=== PATIENT | male | born 1970 | race Caucasian/White ===

== ENCOUNTER 2016-09-21 11:15 | Outpatient (RCR) | payer MEDICARE, MEDICAID ==
[~2016-09-21 11:15] MED LIST: ALBU8.5H4 IH; AMLO5TAB2 PO; ATOR80TA76 PO; BACL20TA PO; CIPR5DRO LEFT EAR; CLOP75TA28 PO; EZET10TA5 PO; ISM60TCR PO; ISOS30TA3 PO; MECL-106 PO; METO-272 PO; NITR0.4T SL; OMEP40CA36 PO; PANT40TA3; PARO30TA3 PO; PRAS10TA6 PO; RANO10003 PO; RANO500T3 PO; RIVA10TA PO; RIVA20TA PO; WARF-48 PO; WARF10TA PO; WARF10TA44 PO
== END 2016-11-13 | disposition home or self-care (01) ==
LOC: CR 11:15
PROVIDERS: ATTEND Internal Medicine Cardiovascular Disease
DX: Z48.812 Encounter for surgical aftercare following surgery on the circulatory system (principal); Z95.5 Presence of coronary angioplasty implant and graft
CPT/HCPCS: 93798

== ENCOUNTER 2017-02-01 18:21 | Emergency (ER) | payer MEDICARE, MEDICAID ==
[~2017-02-01] VITALS: Ht 185.4 cm; Wt 129.3 kg
--- OUTSIDE RECORDS SUMMARY | 2017-02-01 18:28 | XMS REPORT ---
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 Active Problem History of stroke Z86.73 Active Problem Vertigo R42 Active Problem GERD (gastroesophageal reflux disease) K21.9 Active Problem Prediabetes R73.03 Active Problem Anticoagulant long-term use Z79.01 Active Problem Depression F32.9 Active Problem Paroxysmal atrial fibrillation I48.0 Active Problem 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
--- OUTSIDE RECORDS SUMMARY | 2017-02-01 18:28 | XMS REPORT ---
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
--- OUTSIDE RECORDS SUMMARY | 2017-02-01 18:28 | XMS REPORT ---
Author Author JUNIOR XIE [employer] Address Unknown Phone Unavailable Care Team Providers Care Bindery Leadperson Name Role Phone JUNIOR XIE Unavailable Allergies No Known Allergies Problems Problem Type Condition Code Onset Dates Condition Status Problem Hyperlipidemia, unspecified E78.5 Active Problem Chronic obstructive pulmonary disease, unspecified J44.9 Active Problem Essential hypertension I10 Active Problem Elevated glucose R73.09 Active Problem Anemia D64.9 Active Problem Depression F32.9 Active Problem 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 Active Problem Anticoagulant long-term use Z79.01 Active Problem Sciatica, unspecified side M54.30 Active Problem 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
--- OUTSIDE RECORDS SUMMARY | 2017-02-01 18:28 | XMS REPORT ---
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
--- OUTSIDE RECORDS SUMMARY | 2017-02-01 18:28 | XMS REPORT ---
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
--- OUTSIDE RECORDS SUMMARY | 2017-02-01 18:29 | XMS REPORT ---
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 Active Problem Anticoagulant long-term use Z79.01 Active Problem Sciatica, unspecified side M54.30 Active Problem 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
--- OUTSIDE RECORDS SUMMARY | 2017-02-01 18:29 | XMS REPORT | Continuity of Care Document ---
Author Author [facility] Organization [facility] Address Unknown Phone Unavailable Allergies Active Description Code Type Severity Reaction Onset Reported/Identified Relationship to Patient Clinical Status Yes prednisone [id number] Drug Allergy Moderate RASH 04/23/2015 Yes bee venom (honey bee) [id number] Drug Allergy Unknown N/A 04/23/2015 Yes hydrocodone [id number] Drug Allergy Unknown N/A 04/23/2015 Yes venom-honey bee [id number] Drug Allergy Unknown N/A 04/23/2015 Medications Problems Date Dx Coded Attending Type Code Diagnosis Diagnosed By 04/27/2015 JAMEEL PIMENTEL MD Ot 272.4 HYPERLIPIDEMIA NEC/NOS 04/27/2015 JAMEEL PIMENTEL MD Ot 278.01 MORBID OBESITY 04/27/2015 JAMEEL PIMENTEL MD Ot 327.23 OBSTRUCTIVE SLEEP APNEA (ADULT) (PEDIATR 04/27/2015 JAMEEL PIMENTEL MD Ot 401.9 HYPERTENSION NOS 04/27/2015 JAMEEL PIMENTEL MD Ot 411.1 INTERMED CORONARY SYND 04/27/2015 JAMEEL PIMENTEL MD Ot 414.01 CORONARY ATHEROSCLEROSIS OF [place] CORON 04/27/2015 JAMEEL PIMENTEL MD Ot 414.2 CHRONIC TOTAL OCCLUSION OF CORONARY [place] 04/27/2015 JAMEEL PIMENTEL MD Ot 427.31 ATRIAL FIBRILLATION 04/27/2015 JAMEEL PIMENTEL MD Ot 427.32 ATRIAL FLUTTER 04/27/2015 JAMEEL PIMENTEL MD Ot 996.72 OTH COMPLICATIONS DUE TO OTH CARD DEVICE 04/27/2015 JAMEEL PIMENTEL MD Ot V12.54 PERSONAL HX OF TIA, CEREBRAL INFARCTION 04/27/2015 JAMEEL PIMENTEL MD Ot V17.49 FAMILY HISTORY OF OTHER CARDIOVASCULAR D 04/27/2015 JAMEEL PIMENTEL MD Ot V45.81 AORTOCORONARY BYPASS 04/27/2015 JAMEEL PIMENTEL MD Ot V45.82 PERCUTANEOUS TRANSLUM CORON ANGIOPLASTY 04/27/2015 JAMEEL PIMENTEL MD Ot V58.61 ANTICOAGULANTS,LT,CURRENT USE 04/27/2015 JAMEEL PIMENTEL MD Ot V85.39 BODY MASS INDEX 39.0-39.9, ADULT 06/15/2015 JAMEEL PIMENTEL MD Ot I20.9 06/15/2015 JAMEEL PIMENTEL MD Ot Z95.5 06/16/2015 JAMEEL PIMENTEL MD Ot I20.9 06/16/2015 JAMEEL PIMENTEL MD Ot Z95.5 07/08/2015 JAMEEL PIMENTEL MD Ot I20.9 07/08/2015 JAMEEL PIMENTEL MD Ot Z95.5 07/08/2015 GARRETT NOVA, DEONTE Burkett Ot F17.211 NICOTINE DEPENDENCE, CIGARETTES, IN [place] 07/08/2015 DEONTE TUCKER MD Ot J44.9 CHRONIC OBSTRUCTIVE PULMONARY DISEASE, U 07/08/2015 DEONTE TUCKER MD Ot R05 COUGH 07/08/2015 DEONTE TUCKER MD Ot R63.5 ABNORMAL WEIGHT GAIN 07/25/2015 JOSE GUADALUPE KENNEDY Ot G47.33 OBSTRUCTIVE SLEEP APNEA (ADULT ) (PEDIATR 08/02/2015 JAMEEL PIMENTEL MD Ot I20.9 08/02/2015 JAMEEL PIMENTEL MD Ot Z95.5 08/04/2015 JAMEEL PIMENTEL MD Ot I20.9 08/04/2015 JAMEEL PIMENTEL MD Ot Z95.5 08/31/2015 ERIC WALL APRN Ot R79.1 ABNORMAL COAGULATION PROFILE 08/31/2015 ERIC WALL APRN Ot S00.412A ABRASION OF LEFT EAR, INITIAL ENCOUNTER 08/31/2015 ERIC WALL APRN Ot X58.XXXA EXPOSURE TO OTHER SPECIFIED FACTORS, INI 08/31/2015 ERIC WALL APRN Ot Y92.[address] [facility] [address] IN [facility] NON-[facility] ( PRIVATE 08/31/2015 ERIC WALL APRN Ot Y99.8 OTHER EXTERNAL CAUSE STATUS 08/31/2015 ERIC WALL APRN Ot Z79.01 PRACTICE ARCHITECT (CURRENT) USE OF ANTICOAGULANT 08/31/2015 ERIC WALL APRN Ot Z86.73 PRSNL HX OF TIA (TIA), AND CEREB INFRC W 09/10/2015 MARY JON COMPUTER APPLICATIONS DEVELOPER Ot G47.33 OBSTRUCTIVE SLEEP APNEA (ADULT) ( PEDIATR 09/11/2015 JAMEEL PIMENTEL MD Ot I20.9 ANGINA PECTORIS, UNSPECIFIED 09/11/2015 JAMEEL PIMENTEL MD Ot Z95.5 PRESENCE OF CORONARY ANGIOPLASTY IMPLANT 09/14/2015 JAMEEL PIMENTEL MD Ot I20.9 09/14/2015 JAMEEL PIMENTEL MD Ot Z95.5 09/14/2015 JAMEEL PIMENTEL MD Ot I20.9 09/14/2015 JAMEEL PIMENTEL MD Ot Z95.5 09/15/2015 JAMEEL PIMENTEL MD Ot I20.9 09/15/2015 JAMEEL PIMENTEL MD Ot Z95.5 10/25/2015 JAMEEL PIMENTEL MD Ot I20.9 10/25/2015 JAMEEL PIMENTEL MD Ot Z95.5 12/13/2015 JAMEEL PIMENTEL MD Ot I20.9 ANGINA PECTORIS, UNSPECIFIED 12/13/2015 JAMEEL PIMENTEL MD Ot Z95.5 PRESENCE OF CORONARY ANGIOPLASTY IMPLANT 12/15/2015 JAMEEL PIMENTEL MD Ot I20.9 ANGINA PECTORIS, UNSPECIFIED 12/15/2015 JAMEEL PIMENTEL MD Ot Z95.5 PRESENCE OF CORONARY ANGIOPLASTY IMPLANT 02/29/2016 ANA LUISA NOVA FACC, JT FACP CCDS Ot E66.9 OBESITY, UNSPECIFIED 02/29/2016 ANA LUISA NOVA FACC, JT FACP CCDS Ot E78.5 HYPERLIPIDEMIA, UNSPECIFIED 02/29/2016 ANA LUISA NOVA FACC, JT FACP CCDS Ot G47.30 SLEEP APNEA, UNSPECIFIED 02/29/2016 ANA LUISA NOVA FACC, JT FACP CCDS Ot I10 ESSENTIAL (PRIMARY) HYPERTENSION 02/29/2016 JT OROSCO MD, FACC FACP CCDS Ot I25.118 ATHSCL HEART DISEASE OF [place] COR ART W 02/29/2016 JT OROSCO MD, FACC FACP CCDS Ot I25.82 CHRONIC TOTAL OCCLUSION OF CORONARY [place] 02/29/2016 JT OROSCO MD, FACCP CCDS Ot I48.91 UNSPECIFIED ATRIAL FIBRILLATION 02/29/2016 JT OROSCO MD, FACC FACP CCDS Ot Z68.38 BODY MASS INDEX (BMI) 38.0-38.9 , ADULT 02/29/2016 JT OROSCO MD, FACC FACP CCDS Ot Z79.01 MCC (CURRENT) USE OF ANTICOAGULANT 02/29/2016 ANA LUISA NOVA FACC, ALI FACP CCDS Ot Z79.899 OTHER PRACTICE ARCHITECT (CURRENT) DRUG THERAPY 02/29/2016 ANA LUISA NOVA FACC, JT FACP CCDS Ot Z82.49 FAMILY HX OF I[place]HE[place] HEART DIS AND OTH DI 02/29/2016 ANA LUISA NOVA FACC, ALI FACP CCDS Ot Z86.73 PRSNL HX OF TIA (TIA), AND CEREB INFRC W 02/29/2016 ANA LUISA NOVA FACC, JT FACP CCDS Ot Z95.1 PRESENCE OF AORTOCORONARY BYPASS GRAFT 03/28/2016 ANA LUISA NOVA FACC, JT FACP CCDS Ot E66.9 OBESITY, UNSPECIFIED 03/28/2016 ANA LUISA NOVA FACC, ALI FACP CCDS Ot E78.5 HYPERLIPIDEMIA, UNSPECIFIED 03/28/2016 ANA LUISA NOVA FACC, ALI FACP CCDS Ot G47.30 SLEEP APNEA, UNSPECIFIED 03/28/2016 ANA LUISA NOVA FACC, ALI FACP CCDS Ot I10 ESSENTIAL (PRIMARY) HYPERTENSION 03/28/2016 ANA LUISA NOVA FACC, ALI FACP CCDS Ot I25.118 ATHSCL HEART DISEASE OF [place] COR ART W 03/28/2016 ANA LUISA NOVA FACC, ALI FACP CCDS Ot I25.82 CHRONIC TOTAL OCCLUSION OF CORONARY [place] 03/28/2016 ANA LUISA NOVA FACC, JT FACP CCDS Ot I48.91 UNSPECIFIED ATRIAL FIBRILLATION 03/28/2016 ANA LUISA NOVA FACC, ALI FACP CCDS Ot Z68.38 BODY MASS INDEX (BMI) 38.0-38.9 , ADULT 03/28/2016 ANA LUISA NOVA FACC, JT FACP CCDS Ot Z79.01 PRACTICE ARCHITECT (CURRENT) USE OF ANTICOAGULANT 03/28/2016 ANA LUISA NOVA FACC, ALI FACP CCDS Ot Z79.899 OTHER PRACTICE ARCHITECT (CURRENT) DRUG THERAPY 03/28/2016 ANA LUISA NOVA FACC, ALI FACP CCDS Ot Z82.49 FAMILY HX OF ISCHEM HEART DIS AND OTH DI 03/28/2016 ANA LUISAJT EASTON MD, FACC FACP CCDS Ot Z86.73 PRSNL HX OF TIA (TIA), AND CEREB INFRC W 03/28/2016 JT OROSCO MD, FACC FACP CCDS Ot Z95.1 PRESENCE OF AORTOCORONARY BYPASS GRAFT 04/13/2016 JT OROSCO MD, FACC FACP CCDS Ot E66.9 OBESITY, UNSPECIFIED 04/13/2016 JT OROSCO MD, FACC FACP CCDS Ot E78.5 HYPERLIPIDEMIA, UNSPECIFIED 04/13/2016 JT OROSCO MD, FACC FACP CCDS Ot G47.30 SLEEP APNEA, UNSPECIFIED 04/13/2016 JT OROSCO MD, FACC FACP CCDS Ot I10 ESSENTIAL (PRIMARY) HYPERTENSION 04/13/2016 JT OROSCO MD, FACC FACP CCDS Ot I25.118 ATHSCL HEART DISEASE OF [place] COR ART W 04/13/2016 JT OROSCO MD, FACC FACP CCDS Ot I25.82 CHRONIC TOTAL OCCLUSION OF CORONARY [place] 04/13/2016 JT OROSCO MD, FACC FACP CCDS Ot I48.91 UNSPECIFIED ATRIAL FIBRILLATION 04/13/2016 JT OROSCO MD, FACC FACP CCDS Ot Z68.38 BODY MASS INDEX (BMI) 38.0-38.9 , ADULT 04/13/2016 JT OROSCO MD, FACC FACP CCDS Ot Z79.01 PRACTICE ARCHITECT (CURRENT) USE OF ANTICOAGULANT 04/13/2016 ANA LUISA NOVA FACC ALI FACP CCDS Ot Z79.899 OTHER PRACTICE ARCHITECT (CURRENT) DRUG THERAPY 04/13/2016 JT OROSCO MD, FACC FACP CCDS Ot Z82.49 FAMILY HX OF ISCHEM HEART DIS AND OTH DI 04/13/2016 JT OROSCO MD, FACC FACP CCDS Ot Z86.73 PRSNL HX OF TIA (TIA), AND CEREB INFRC W 04/13/2016 JT OROSCO MD, FACC FACP CCDS Ot Z95.1 PRESENCE OF AORTOCORONARY BYPASS GRAFT 04/16/2016 JT OROSCO MD, FACC FACP CCDS Ot E66.9 OBESITY, UNSPECIFIED 04/16/2016 JT OROSCO MD, FACC FACP CCDS Ot E78.5 HYPERLIPIDEMIA, UNSPECIFIED 04/16/2016 JT OROSCO MD, FACC FACP CCDS Ot G47.30 SLEEP APNEA, UNSPECIFIED 04/16/2016 ANA LUISA NOVA FACC, JT FACP CCDS Ot I10 ESSENTIAL (PRIMARY) HYPERTENSION 04/16/2016 ANA LUISA NOVA FACC, JT FACP CCDS Ot I25.118 ATHSCL HEART DISEASE OF [place] COR ART W 04/16/2016 ANA LUISA NOVA FACC, JT FACP CCDS Ot I25.82 CHRONIC TOTAL OCCLUSION OF CORONARY [place] 04/16/2016 ANA LUISA NOVA FACC, JT FACP CCDS Ot I48.91 UNSPECIFIED ATRIAL FIBRILLATION 04/16/2016 ANA LUISA NOVA FACC, ALI FACP CCDS Ot Z68.38 BODY MASS INDEX (BMI) 38.0-38.9 , ADULT 04/16/2016 JT OROSCO MD, FACC FACP CCDS Ot Z79.01 MCC (CURRENT) USE OF ANTICOAGULANT 04/16/2016 JT OROSCO MD, FACC FACP CCDS Ot Z79.899 OTHER PRACTICE ARCHITECT (CURRENT) DRUG THERAPY 04/16/2016 JT OROSCO MD, FACC FACP CCDS Ot Z82.49 FAMILY HX OF ISCHEM HEART DIS AND OTH DI 04/16/2016 ANA LUISA NOVA FACC, JT FACP CCDS Ot Z86.73 PRSNL HX OF TIA (TIA), AND CEREB INFRC W 04/16/2016 ANA LUISA NOVA FACC, ALI FACP CCDS Ot Z95.1 PRESENCE OF AORTOCORONARY BYPASS GRAFT 06/18/2016 ERIC WALL APRN Ot I25.10 ATHSCL HEART DISEASE OF [place] CORONARY 06/18/2016 ERIC WALL APRN Ot I48.2 CHRONIC ATRIAL FIBRILLATION 06/18/2016 ERIC WALL APRN Ot J44.9 CHRONIC OBSTRUCTIVE PULMONARY DISEASE, U 06/18/2016 ERIC WALL APRN Ot R00.2 PALPITATIONS 06/18/2016 ERIC WALL APRN Ot R07.89 OTHER CHEST PAIN 06/18/2016 ERIC WALL APRN Ot R51 HEADACHE 06/18/2016 ERIC WALL APRN Ot Z79.01 PRACTICE ARCHITECT (CURRENT) USE OF ANTICOAGULANT 06/18/2016 ERIC WALL APRN Ot Z79.02 MCC (CURRENT) USE OF ANTITHROMBOTI 06/18/2016 ERIC WALL APRN Ot Z79.899 OTHER MCC (CURRENT) DRUG THERAPY 06/18/2016 ERIC WALL DEVELOPER ANALYST Ot Z87.891 PERSONAL HISTORY OF NICOTINE DEPENDENCE 06/18/2016 ERIC WALL APRN Ot Z95.1 PRESENCE OF AORTOCORONARY BYPASS GRAFT 06/18/2016 ERIC WALL APRN Ot Z95.5 PRESENCE OF CORONARY ANGIOPLASTY IMPLANT 06/18/2016 JAMEEL PIMENTEL MD Ot I20.9 ANGINA PECTORIS, UNSPECIFIED 06/18/2016 JAMEEL PIMENTEL MD Ot Z95.5 PRESENCE OF CORONARY ANGIOPLASTY IMPLANT 08/15/2016 JAMEEL PIMENTEL MD Ot I20.9 ANGINA PECTORIS, UNSPECIFIED 08/15/2016 JAMEEL PIMENTEL MD Ot Z95.5 PRESENCE OF CORONARY ANGIOPLASTY IMPLANT 08/16/2016 JAMEEL PIMENTEL MD Ot Z48.812 ENCNTR FOR SURGICAL AFTCR FOLLOWING SURG 08/16/2016 JAMEEL PIMENTEL MD Ot Z95.5 PRESENCE OF CORONARY ANGIOPLASTY IMPLANT 09/27/2016 JAMEEL PIMENTEL MD Ot Z48.812 ENCNTR FOR SURGICAL AFTCR FOLLOWING SURG 09/27/2016 JAMEEL PIMENTEL MD Ot Z95.5 PRESENCE OF CORONARY ANGIOPLASTY IMPLANT 11/13/2016 JAMEEL PIMENTEL MD Ot Z48.812 ENCNTR FOR SURGICAL AFTCR FOLLOWING SURG 11/13/2016 JAMEEL PIMENTEL MD Ot Z95.5 PRESENCE OF CORONARY ANGIOPLASTY IMPLANT Procedures Code Description Performed By Performed On 00.66 PERCUTANEOUS TRANSLUMINAL CORONARY ANGIO 04/24/2015 37.22 LEFT HEART CARDIAC CATH 04/24/2015 88.42 CONTRAST AORTOGRAM 04/24/2015 88.49 CONTRAST ARTERIOGRAM NEC 04/24/2015 88.53 LT HEART ANGIOCARDIOGRAM 04/24/2015 88.56 CORONAR ARTERIOGR-2 CATH 04/24/2015 00.66 PERCUTANEOUS TRANSLUMINAL CORONARY ANGIO 04/26/2015 88.56 CORONAR ARTERIOGR-2 CATH 04/26/2015 Results Test Result Range Complete blood count (CBC) with automated white blood cell (WBC) differential - 06/18/16 15:00 Blood leukocytes automated count (number/volume) 12.0 10*3/ uL 4.3-11.0 Blood erythrocytes automated count (number/volume) 4.30 10*6 /uL 4.35-5.85 Venous blood hemoglobin measurement (mass/volume) 12.6 g/dL 13.3-17.7 Blood hematocrit (volume fraction) 36 % 40-54 Automated erythrocyte mean corpuscular volume 84 [foz_us] 80-99 Automated erythrocyte mean corpuscular hemoglobin (mass per erythrocyte) 29 pg 25-34 Automated erythrocyte mean corpuscular hemoglobin concentration measurement ( mass/volume) 35 g/dL 32-36 Automated erythrocyte distribution width ratio 13.0 % 10.0-14.5 Automated blood platelet count (count/volume) 248 10*3/uL 130-400 Automated blood platelet mean volume measurement 9.7 [foz_us ] 7.4-10.4 Automated blood neutrophils/100 leukocytes 58 % 42-75 Automated blood lymphocytes/100 leukocytes 30 % 12-44 Blood monocytes/100 leukocytes 6 % 0-12 Automated blood eosinophils/100 leukocytes 5 % 0-10 Automated blood basophils/100 leukocytes 0 % 0-10 Blood neutrophils automated count (number/volume) 7.0 10*3 1.8-7.8 Blood lymphocytes automated count (number/volume) 3.7 10*3 1.0-4.0 Blood monocytes automated count (number/volume) 0.8 10*3 0.0-1.0 Automated eosinophil count 0.6 10*3/uL 0.0-0.3 Automated blood basophil count (count/volume) 0.0 10*3/uL 0.0-0.1 PT panel in platelet poor plasma by coagulation assay - 06/18/16 15:00 Prothrombin time (PT) in platelet poor plasma by coagulation assay 19.0 s 12.2-14.7 INR in platelet poor plasma or blood by coagulation assay 1.6 0.8-1.4 Activated partial thromboplastin time (aPTT) in platelet poor plasma bycoagulation assay - 06/18/16 15:00 Activated partial thromboplastin time (aPTT) in platelet poor plasma bycoagulation assay 35 s 24-35 Comprehensive metabolic panel - 06/18/16 15:00 Serum or plasma sodium measurement (moles/volume) 138 mmol/ L 135-145 Serum or plasma potassium measurement (moles/volume) 3.4 mmol/L 3.6-5.0 Serum or plasma chloride measurement (moles/volume) 104 mmol /L 98-107 Carbon dioxide 23 mmol/L 21-32 Serum or plasma anion gap determination (moles/volume) 11 mmol/L 5-14 Serum or plasma urea nitrogen measurement (mass/volume) 8 mg /dL 7-18 Serum or plasma creatinine measurement (mass/volume) 0.80 mg /dL 0.60-1.30 Serum or plasma urea nitrogen/creatinine mass ratio 10 NRG Serum or plasma creatinine measurement with calculation of estimated glomerular filtration rate > NRG Serum or plasma glucose measurement (mass/volume) 156 mg/dL 70-105 Serum or plasma calcium measurement (mass/volume) 9.1 mg/dL 8.5-10.1 Serum or plasma total bilirubin measurement (mass/volume) 0.4 mg/dL 0.1-1.0 Serum or plasma alkaline phosphatase measurement (enzymatic activity/volume) 73 U/L 40-136 Serum or plasma aspartate aminotransferase measurement (enzymatic activity/ volume) 11 U/L 5-34 Serum or plasma alanine aminotransferase measurement (enzymatic activity/volume ) 13 U/L 0-55 Serum or plasma protein measurement (mass/volume) 6.9 g/dL 6.4-8.2 Serum or plasma albumin measurement (mass/volume) 4.0 g/dL 3.2-4.5 Magnesium - 06/18/16 15:00 Magnesium 2.1 mg/dL 1.8-2.4 Serum or plasma troponin i.cardiac measurement (mass/volume) - 06/18/16 15:00 Serum or plasma troponin i.cardiac measurement (mass/volume) < ng/mL <0.30 Myoglobin, serum - 06/18/16 15:00 Myoglobin, serum 22.6 ng/mL 10.0-92.0 Encounters ACCT No. Visit Date/Time Discharge Status Pt. Type Provider Facility Loc./Unit Complaint [id number] 09/21/2016 11:15:00 2016 00:01:00 DIS Outpatient JAMEEL PIMENTEL MD [facility] CR STENT [id number] 06/18/2016 14:42:00 2015 16:16:00 DIS Emergency ERIC WALL APRN [facility] ER PALPITATIONS NAUSEA [id number] 02/25/2016 23:11:00 2015 14:40:00 DIS Outpatient ANA LUISA NOVA FACC, JT VINESP CCDS [facility] CATH CHEST PAIN [id number] 09/26/2015 11:59:00 2015 00:01:00 DIS Outpatient JAMEEL PIMENTEL MD [facility] CR PTCA [id number];STABLE ANGINA [id number] 09/09/2015 19:56:00 2015 06:40:00 DIS Outpatient MARY JON COMPUTER APPLICATIONS DEVELOPER [facility] SLEEP NARGIS [id number] 08/31/2015 15:57:00 2015 17:10:00 DIS Emergency ERIC WALL DEVELOPER ANALYST [facility] ER L EAR BLEEDING [id number] 07/24/2015 21:15:00 2014 06:25:00 DIS Outpatient JOSE GUADALUPE KENNEDY [facility] SLEEP ARRHYTHMIAS, HX STROKE, OBSTRUCTIVE SLEEP APNEA [id number] 07/08/2015 10:07:00 2014 11:55:00 DIS Emergency DEONTE TUCKER MD [facility] ER COUGH/GAINING WEIGHT [id number] 04/25/2015 14:12:00 2014 11:55:00 DIS Inpatient JAMEEL PIMENTEL MD [facility] CSD CHEST PAIN,CAD,CHRONIC LEUKOCYTOSIS [id number] 11/14/2016 11:00:00 PEN Preadmit JAMEEL PIMENTEL MD [facility] CR STENT [id number] 12/14/2015 10:00:00 PEN Preadmit JAMEEL PIMENTEL MD [facility] CR PTCA [id number];STABLE ANGINA [id number] 09/09/2015 12:03:00 ACT Outpatient JAMEEL PIMENTEL MD [facility] CR PTCA [id number];STABLE ANGINA [id number]
--- OUTSIDE RECORDS SUMMARY | 2017-02-01 18:29 | XMS REPORT ---
Author Author JUNIOR XIE eClinicalWorks Address Unknown Phone Unavailable Care Team Providers Care Planning Aide Name Role Phone JUNIOR XIE CP Unavailable Allergies, Adverse Reactions, Alerts Substance Reaction Event Type Vicodin Info Not Available Drug Allergy PredniSONE Info Not Available Drug Allergy Problems Problem Type Condition Code Onset Dates [...] Problem History of stroke Z86.73 Active Assessment Depression F32.9 Active Assessment COPD exacerbation J44.1 Active Assessment Polyarthralgia M25.50 Active Assessment Anticoagulant long-term use Z79.01 Active Assessment Costochondritis M94.0 Active Problem Elevated glucose R73.09 Active Assessment Sciatica, left M54.32 Active Problem Anemia D64.9 Active Medications Medication Code System Code Instructions Start Date End Date Status Dosage Isosorbide Mononitrate CR [facility] [address]-50 30 MG Orally Once a day 1 tablet Metoprolol Succinate ER [facility] [address]-29 50 MG Orally 2 times a day 1 tablet Baclofen [facility] [address]-47 20 MG Orally Three times a day 1 tablet with food or milk Meclizine HCl [facility] [address]-69 25 MG Orally 4 times a day 1 tablet as needed Atorvastatin Calcium [facility] [address]-44 80 MG Orally Once a day 1 tablet Ranexa [facility] [address]-28 1000 MG Orally Twice a day 1 tablet Doxycycline Hyclate [facility] [address]-01 100 MG Orally every 12 hrs Jul 22, 2015 Jul 29, 2015 1 tablet Warfarin Sodium [facility] [address]-86 5 MG Orally Once a day 3 tabs Paroxetine HCl [facility] [address]-61 30 MG Orally Once a day 1 tablet in the morning Amlodipine Besylate [facility] [address]-05 5 MG Orally Once a day 1 tablet Nitrostat [facility] [address]-19 0.4 MG Sublingual not defined Ventolin HFA [facility] [address]-03 108 (90 Base) MCG/ACT Inhalation every 6 hrs 2 puffs as needed Omeprazole [facility] [address]-44 40 MG Orally Once a day 1 capsule Combivent Respimat [facility] [address]-29 20-100 MCG/ACT Inhalation Four times a day 1 puff Effient [facility] [address]-78 10 MG Orally Once a day 1 tablet Zetia [facility] [address]-80 10 MG Orally Once a day 1 tablet Procedures Procedure Coding System Code Date [facility] VISIT ESTABLISHED PATIENT CPT-4 G0467 Jul 22, 2015 Office Visit, Est Pt., Level 3 CPT-4 98195 Jul 22, 2015 PROTHROMBIN TIME CPT-4 36704 Jul 22, 2015 THER/PROPH/DIAG INJ, SC/IM CPT-4 39174 Jul 22, 2015 DEPO MEDROL 80 MG/ML CPT-4 J1040 Jul 22, 2015 Vital Signs Date/Time: Jul 22, 2015 Temperature 97.4 F Weight 288.6 lbs Height 73 in BMI 38.07 Index Blood Pressure Diastolic 82 mmHg Blood Pressure Systolic 124 mmHg Cardiac Monitoring Heart Rate 92 bpm Results Name Result Date Reference Range Unit Abnormality Flag INR (IN HOUSE) ----INR 3.0 [id number] 1.10 - 3.30 ----Lot # [id number] ----Exp date [id number] Summary Purpose eClinicalWorks Submission
--- OUTSIDE RECORDS SUMMARY | 2017-02-01 18:29 | XMS REPORT ---
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 Problem Generalized anxiety disorder F41.1 Active Assessment 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 Problem Post traumatic stress disorder (PTSD) F43.10 Active Assessment B12 deficiency E53.8 Active Assessment Depression F32.9 Active Problem Intractable migraine without aura and with status migrainosus G43.011 Active Problem Vertigo R42 Active Problem GERD (gastroesophageal reflux disease) K21.9 Active Problem Panic attack F41.0 Active Problem Prediabetes R73.03 Active Problem Hyperlipidemia, unspecified E78.5 Active Problem Essential hypertension I10 Active Assessment Intractable migraine without aura and with status migrainosus G43.011 Active Problem Anemia D64.9 Active Problem Sciatica, unspecified side M54.30 Active Problem History of stroke Z86.73 Active Problem Chronic obstructive pulmonary disease, unspecified J44.9 Active Problem 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 [address]-13 60 MG Orally TAKE 1 TABLET BY MOUTH ONCE DAILY Xarelto [facility] 09439449466 20 MG Orally Once a day 1 tablet with food Ventolin HFA [facility] [address]-22 108 (90 Base) MCG/ACT Inhalation every 6 hrs 2 puffs as needed Trazodone HCl [facility] [address]-30 50 MG Orally Once a day Jun 19, 2016 0.5 tablet - 1 tablet at bedtime as needed Nitrostat [facility] [address]-68 0.4 MG Sublingual q5 min max 3 doses in 15 min as needed for angina 1 tablet Ranexa [facility] [address]-36 1000 MG Orally Twice a day 1 tablet Duloxetine HCl [facility] [address]-34 30 MG Orally daily Jun 19, 2016 1 capsule every am X 2 weeks then 2 caps every am Baclofen [facility] 37185529388 20 TAKE 1 TABLET BY MOUTH THREE TIMES DAILY WITH FOOD OR MILK Paxil [facility] [address]-90 30 MG Orally Once a day 1 tablet in the morning Amlodipine Besylate [facility] [address]-51 5 MG Orally Once a day 1 tablet Zetia [facility] [address]-12 10 MG Orally Once a day 1 tablet Effient [facility] [address]-82 10 MG Orally Once a day 1 tablet Promethazine HCl [facility] [address]-89 50 mg Orally every 6 hrs Jun 19, 2016 0.5 tablet as needed for nausea Meclizine HCl [facility] 20026318383 25 Orally 4 times a day 1 tablet as needed Atorvastatin Calcium [facility] 37525943197 80 MG Orally Once a day 1 tablet Plavix [facility] [address]-21 75 MG Orally Once a day 1 tablet Metoprolol Succinate ER [facility] [address]-27 50 MG Orally 2 times a day 1 tablet Cymbalta [facility] [address]-39 30 MG Orally Twice a day 1 capsule Cymbalta [facility] [address]-50 20 MG Orally Twice a day 1 capsule Pantoprazole Sodium [facility] [address]-14 40 mg Orally Once a day Jun 07, 2016 1 tablet Procedures Procedure Coding System Code Date THER/PROPH/DIAG INJ, SC/IM CPT-4 42185 Jun 19, 2016 [facility] VISIT ESTABLISHED PATIENT CPT-4 G0467 Jun 19, 2016 TORADOL (IM) 60 MG/2ML (UP TO 15 MG) CPT-4 J1885 Jun 19, 2016 LAB NOT BILLED BY [facility] CPT-4 NOBLL Jun 19, 2016 Office Visit, Est Pt., Level 3 CPT-4 49024 Jun 19, 2016 VENIPUNCT, ROUTINE* CPT-4 86568 Jun 19, 2016 Vital Signs Date/Time: Jun 19, 2016 Cardiac Monitoring Heart Rate 74 bpm Weight 298.0 lbs Height 73 in BMI 39.31 Index Blood Pressure Diastolic 78 mmHg Blood Pressure Systolic 142 mmHg Results Name Result Date Reference Range Unit Abnormality Flag TSH ----TSH 2.400 [id number] 0.450-4.500 uIU/mL ROUTINE VENIPUNCTURE VITAMIN B12 ----Vitamin B12 235 [id number] 211-946 pg/mL Summary Purpose eClinicalWorks Submission
--- OUTSIDE RECORDS SUMMARY | 2017-02-01 18:30 | XMS REPORT ---
Author Author JUNIOR XIE eClinicalWorks Address Unknown Phone Unavailable Care Team Providers Care Products Mechanical Design Engineer Name Role Phone JUNIOR XIE CP Unavailable Allergies No Known Allergies Problems Problem [...] Problem History of stroke Z86.73 Active Medications No Known Medications Results No Known Results Summary Purpose eClinicalWorks Submission
--- OUTSIDE RECORDS SUMMARY | 2017-02-01 18:30 | XMS REPORT ---
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 323425332 Problem Anticoagulant long-term use Z79.01 Active 947807213 Problem GERD (gastroesophageal reflux disease) K21.9 Active 023232522 Problem Paroxysmal atrial fibrillation I48.0 Active 188668278 Problem Essential hypertension I10 Active 60290283 Problem Chronic obstructive pulmonary disease, unspecified J44.9 Active 20162986 Problem Anemia D64.9 Active 616373154 Problem S/P CABG x 5 Z95.1 Active 787440386 Problem Hyperlipidemia, unspecified E78.5 Active 01026310 Problem Sciatica, unspecified side M54.30 Active 85417329 ALLERGIES Unknown Allergies SOCIAL HISTORY No smoking Hx information available PLAN OF CARE VITAL SIGNS MEDICATIONS Medication Instructions Dosage Frequency Start Date End Date Duration Status Paroxetine HCl 30 MG Orally Once a day 1 tablet in the morning 24h Active RESULTS No Results PROCEDURES No Known procedures IMMUNIZATIONS No Known Immunizations
--- OUTSIDE RECORDS SUMMARY | 2017-02-01 18:30 | XMS REPORT ---
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 Problem Anticoagulant long-term use Z79.01 Active Problem Post traumatic stress disorder (PTSD) F43.10 Active Assessment Post traumatic stress disorder (PTSD) F43.10 Active Problem Panic attack F41.0 Active Assessment Panic attack F41.0 Active Problem Generalized anxiety disorder F41.1 Active Problem GERD (gastroesophageal reflux disease) K21.9 Active Problem Paroxysmal atrial fibrillation I48.0 Active Problem Prediabetes R73.03 Active Problem Vertigo R42 Active Problem Anemia D64.9 Active Problem Hyperlipidemia, unspecified E78.5 Active Assessment Generalized anxiety disorder F41.1 Active Assessment Depression F32.9 Active Problem S/P CABG x 5 Z95.1 Active Problem Sciatica, unspecified side M54.30 Active Problem Essential hypertension I10 Active Problem History of stroke Z86.73 Active Problem Chronic obstructive pulmonary disease, unspecified J44.9 Active Problem 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
--- OUTSIDE RECORDS SUMMARY | 2017-02-01 18:30 | XMS REPORT ---
Author Author JOHN CABALLERO eClinicalWorks Address Unknown Phone Unavailable Care Team Providers Care Fish Conservationist Name Role Phone JOHN CABALLERO CP Unavailable Allergies, Adverse Reactions, Alerts Substance [...] Problem History of stroke Z86.73 Active Assessment Anticoagulant long-term use Z79.01 Active Assessment Ear canal abrasion, left, initial encounter S00.412A Active Problem Elevated glucose R73.09 Active Problem Anemia D64.9 Active Medications Medication Code System Code Instructions Start Date End Date Status Dosage Meclizine HCl [facility] 57543975851 25 TAKE 1 TABLET BY MOUTH FOUR TIMES DAILY NEEDED FOR DIZZINESS Atorvastatin Calcium [facility] [address]-68 80 MG Orally Once a day 1 tablet Zetia [facility] [address]-19 10 MG Orally Once a day 1 tablet Metoprolol Succinate ER [facility] [address]-64 50 MG Orally 2 times a day 1 tablet Amlodipine Besylate [facility] [address]-09 5 MG Orally Once a day 1 tablet Baclofen [facility] [address]-52 20 MG Orally Three times a day 1 tablet with food or milk Omeprazole [facility] [address]-33 40 MG Orally Once a day 1 capsule Ventolin HFA [facility] [address]-20 108 (90 Base) MCG/ACT Inhalation every 6 hrs 2 puffs as needed Nitrostat [facility] [address]-93 0.4 MG Sublingual not defined Warfarin Sodium [facility] [address]-11 5 MG Orally Once a day 3 tabs Ranexa [facility] [address]-47 1000 MG Orally Twice a day 1 tablet Combivent Respimat [facility] [address]-56 20-100 MCG/ACT Inhalation Four times a day 1 puff Paroxetine HCl [facility] [address]-20 30 MG Orally Once a day 1 tablet in the morning Isosorbide Mononitrate CR [facility] 67133134725 30 TAKE 1 TABLET BY MOUTH ONCE DAILY Effient [facility] [address]-98 10 MG Orally Once a day 1 tablet Procedures Procedure Coding System Code Date [facility] VISIT ESTABLISHED PATIENT CPT-4 G0467 Aug 31, 2015 Office Visit, Est Pt., Level 3 CPT-4 45312 Aug 31, 2015 PROTHROMBIN TIME CPT-4 37525 Aug 31, 2015 Vital Signs Date/Time: Aug 31, 2015 Temperature 97.2 F Weight 287.6 lbs Height 73 in BMI 37.94 Index Blood Pressure Diastolic 78 mmHg Blood Pressure Systolic 122 mmHg Cardiac Monitoring Heart Rate 64 bpm Results Name Result Date Reference Range Unit Abnormality Flag INR (IN HOUSE) ----Exp date Jul [id number] ----INR >8.0 [id number] 1.10 - 3.30 ----PREVIOUS INR 3.0 [id number] ----CURRENT COUMADIN DOSE 15mg SMWTF/17.5mg ST [id number] ----Lot # [id number] Summary Purpose eClinicalWorks Submission
--- OUTSIDE RECORDS SUMMARY | 2017-02-01 18:30 | XMS REPORT ---
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 Problem GERD (gastroesophageal reflux disease) K21.9 Active Problem 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
--- OUTSIDE RECORDS SUMMARY | 2017-02-01 18:30 | XMS REPORT ---
Author Author JUNIOR XIE eClinicalWorks Address Unknown Phone Unavailable Care Team Providers Care Mold Making Supervisor Name Role Phone JUNIOR XIE CP Unavailable [...] Problem History of stroke Z86.73 Active Assessment Atherosclerosis of coronary artery bypass graft(s) without angina pectoris I25.810 Active Assessment Coumadin toxicity, accidental or unintentional, subsequent encounter T60.4X1D Active Problem Elevated glucose R73.09 Active Assessment History of stroke Z86.73 Active Problem Anemia D64.9 Active Medications Medication Code System Code Instructions Start Date End Date Status Dosage Paroxetine HCl [facility] [address]-84 30 MG Orally Once a day 1 tablet in the morning Atorvastatin Calcium [facility] [address]-65 80 MG Orally Once a day 1 tablet Amlodipine Besylate [facility] [address]-39 5 MG Orally Once a day 1 tablet Ranexa [facility] [address]-57 1000 MG Orally Twice a day 1 tablet Ventolin HFA [facility] [address]-95 108 (90 Base) MCG/ACT Inhalation every 6 hrs 2 puffs as needed Isosorbide Mononitrate CR [facility] 39604444433 30 TAKE 1 TABLET BY MOUTH ONCE DAILY Omeprazole [facility] [address]-31 40 MG Orally Once a day 1 capsule Combivent Respimat [facility] [address]-06 20-100 MCG/ACT Inhalation Four times a day 1 puff Metoprolol Succinate ER [facility] [address]-53 50 MG Orally 2 times a day 1 tablet Effient [facility] [address]-02 10 MG Orally Once a day 1 tablet Zetia [facility] [address]-96 10 MG Orally Once a day 1 tablet Meclizine HCl [facility] 05214306922 25 TAKE 1 TABLET BY MOUTH FOUR TIMES DAILY NEEDED FOR DIZZINESS Baclofen [facility] [address]-47 20 MG Orally Three times a day 1 tablet with food or milk Nitrostat [facility] [address]-96 0.4 MG Sublingual not defined Procedures Procedure Coding System Code Date [facility] NOBLL Sep 01, 2015 VENIPUNCT, ROUTINE* CPT-4 48009 Sep 01, 2015 PROTHROMBIN TIME CPT-4 16617 Sep 01, 2015 Office Visit, Est Pt., Level 3 CPT-4 45538 Sep 01, 2015 [facility] VISIT ESTABLISHED PATIENT CPT-4 G0467 Sep 01, 2015 Vital Signs Date/Time: Sep 01, 2015 Temperature 98.0 F Weight 290.0 lbs Height 73 in BMI 38.26 Index Blood Pressure Diastolic 78 mmHg Blood Pressure Systolic 118 mmHg Results Name Result Date Reference Range Unit Abnormality Flag ROUTINE VENIPUNCTURE Summary Purpose eClinicalWorks Submission
--- OUTSIDE RECORDS SUMMARY | 2017-02-01 18:31 | XMS REPORT ---
Author Author JUNIOR XIE eClinicalWorks Address Unknown Phone Unavailable Care Team Providers Care Customer Marketing Manager Name Role Phone JUNIOR XIE CP Unavailable [...] stroke Z86.73 Active Problem Vertigo R42 Active Assessment Vertigo R42 Active Problem GERD (gastroesophageal reflux disease) K21.9 Active Assessment Seborrheic keratosis L82.1 Active Assessment Chronic obstructive pulmonary disease, unspecified J44.9 Active Problem Prediabetes R73.03 Active Problem Anticoagulant long-term use Z79.01 Active Problem Depression F32.9 Active Problem Paroxysmal atrial fibrillation I48.0 Active Problem 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 Assessment Hyperlipidemia, unspecified E78.5 Active Assessment Depression F32.9 Active Assessment B12 deficiency E53.8 Active Assessment Prediabetes R73.03 Active Problem Hyperlipidemia, unspecified E78.5 Active Problem Essential hypertension I10 Active Assessment Elevated glucose R73.09 Active Problem Chronic obstructive pulmonary disease, unspecified J44.9 Active Assessment Blurry vision H53.8 Active Problem Anemia D64.9 Active Problem S/P CABG x 5 Z95.1 Active Medications Medication Code System Code Instructions Start Date End Date Status Dosage Metoprolol Succinate ER [facility] [address]-06 50 MG Orally 2 times a day 1 tablet Ranexa [facility] [address]-43 1000 MG Orally Twice a day 1 tablet Meclizine HCl [facility] 07557181512 25 Orally 4 times a day 1 tablet as needed Nitrostat [facility] [address]-64 0.4 MG Sublingual q5 min max 3 doses in 15 min as needed for angina 1 tablet Atorvastatin Calcium [facility] [address]-91 80 MG Orally Once a day January 30, 2016 1 tablet Combivent Respimat [facility] [address]-00 20-100 MCG/ACT Inhalation Four times a day 1 puff Xarelto [facility] 83248887390 20 MG Orally Once a day 1 tablet with food Paroxetine HCl [facility] [address]-84 40 MG Orally Once a day 1 tablet in the morning Baclofen [facility] 24830194044 20 TAKE 1 TABLET BY MOUTH THREE TIMES DAILY WITH FOOD OR MILK Isosorbide Mononitrate CR [facility] 09872559587 30 TAKE 1 TABLET BY MOUTH ONCE DAILY Omeprazole [facility] [address]-45 40 MG Orally Once a day 1 capsule Ventolin HFA [facility] [address]-66 108 (90 Base) MCG/ACT Inhalation every 6 hrs 2 puffs as needed Effient [facility] [address]-14 10 MG Orally Once a day 1 tablet Amlodipine Besylate [facility] [address]-60 5 MG Orally Once a day 1 tablet Zetia [facility] [address]-45 10 MG Orally Once a day 1 tablet Procedures Procedure Coding System Code Date [facility] VISIT ESTABLISHED PATIENT CPT-4 G0467 May 11, 2016 Office Visit, Est Pt., Level 3 CPT-4 73422 May 11, 2016 GLYCATED HEMOGLOBIN TEST CPT-4 24196 May 11, 2016 Vital Signs Date/Time: May 11, 2016 Cardiac Monitoring Heart Rate 80 bpm Weight 291.0 lbs Height 73 in BMI 38.39 Index Blood Pressure Diastolic 80 mmHg Blood Pressure Systolic 138 mmHg Results Name Result Date Reference Range Unit Abnormality Flag A1C (IN HOUSE) ----A1C IN HOUSE 5.8 [id number] 4.3 - 5.6 % ----Previous A1c N/A [id number] ----Lot [id number] ----Exp date [id number] Summary Purpose eClinicalWorks Submission
--- OUTSIDE RECORDS SUMMARY | 2017-02-01 18:31 | XMS REPORT ---
Author Author KHOA SCHNEIDER [facility] eClinicalWorks Address Unknown Phone Unavailable Care Team Providers Care Sales Warehouse Driver Name Role Phone KHOA SCHNEIDER CP Unavailable Allergies No Known Allergies Problems Problem Type Condition Code Onset Dates Condition Status Problem Anticoagulant long-term use Z79.01 Active Problem Paroxysmal atrial fibrillation I48.0 Active Problem 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 Active Problem Generalized anxiety disorder F41.1 Active Problem Post traumatic stress disorder (PTSD) F43.10 Active Problem Intractable migraine without aura and with status migrainosus G43.011 Active Problem Vertigo R42 Active Problem GERD (gastroesophageal reflux disease) K21.9 Active Problem Panic attack F41.0 Active Problem Prediabetes R73.03 Active Problem Hyperlipidemia, unspecified E78.5 Active Problem Essential hypertension I10 Active Assessment 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 Active Problem Anemia D64.9 Active Problem Sciatica, unspecified side M54.30 Active Problem History of stroke Z86.73 Active Problem Chronic obstructive pulmonary disease, unspecified J44.9 Active Problem 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 Active Problem S/P CABG x 5 Z95.1 Active Problem Depression F32.9 Active Medications Medication Code System Code Instructions Start Date End Date Status Dosage Effient [facility] [address]-19 10 MG Orally Once a day 1 tablet Zetia [facility] [address]-83 10 MG Orally Once a day 1 tablet Trazodone HCl [facility] [address]-34 50 mg Orally Once a day Jun 19, 2016 0.5 tablet - 1 tablet at bedtime as needed Isosorbide Mononitrate CR [facility] [address]-95 60 MG Orally TAKE 1 TABLET BY MOUTH ONCE DAILY Ranexa [facility] [address]-55 1000 MG Orally Twice a day 1 tablet Duloxetine HCl [facility] [address]-01 30 MG Orally daily Jun 19, 2016 1 capsule every am X 2 weeks then 2 caps every am Metoprolol Succinate ER [facility] [address]-37 50 MG Orally 2 times a day 1 tablet Atorvastatin Calcium [facility] 91502513603 80 MG Orally Once a day 1 tablet Meclizine HCl [facility] 75375766976 25 Orally 4 times a day 1 tablet as needed Ventolin HFA [facility] [address]-56 108 (90 Base) MCG/ACT Inhalation every 6 hrs 2 puffs as needed Plavix [facility] [address]-82 75 MG Orally Once a day 1 tablet Pantoprazole Sodium [facility] [address]-26 40 mg Orally Once a day Jun 07, 2016 1 tablet Xarelto [facility] 62148401819 20 MG Orally Once a day 1 tablet with food Nitrostat [facility] [address]-61 0.4 MG Sublingual q5 min max 3 doses in 15 min as needed for angina 1 tablet Amlodipine Besylate [facility] [address]-75 5 MG Orally Once a day 1 tablet Baclofen [facility] 42893777142 20 TAKE 1 TABLET BY MOUTH THREE TIMES DAILY WITH FOOD OR MILK Procedures Procedure Coding System Code Date Office Visit, New Pt., Level 3 CPT-4 21852 Jun 19, 2016 [facility] VISIT NEW PATIENT CPT-4 G0466 Jun 19, 2016 Vital Signs Date/Time: Jun 19, 2016 Cardiac Monitoring Heart Rate 76 bpm Weight 297.9 lbs Height 73 in BMI 39.30 Index Blood Pressure Diastolic 70 mmHg Blood Pressure Systolic 118 mmHg Results No Known Results Summary Purpose eClinicalWorks Submission
[2017-02-01] MEDS ORDERED: NS IV 1000 ML 1,000 ML IV ONE (18:43)
--- NOTE | 2017-02-01 18:55 | ED Abdominal Pain ---
General Chief Complaint: Abdominal/GI Problems Stated Complaint: STOMACH PAIN/LIGHTHEADEDNESS Nursing Triage Note: C/O DIFFUSE ABD PAIN X 1 MONTH. AT LEAST SIX LOOSE STOOLS TODAY. EMESIS X 1. HAD NEAR SYNCOPAL EPISODE TODAY. Sepsis Screen: No Definite Risk Source of Information: Patient Exam Limitations: No Limitations History of Present Illness Time Seen By Provider: 18:35 Initial Comments Here with a variety of complaints that centers around one month of increasing abdominal discomfort with associated diarrhea. States the abdominal pain is cramping and generalized and greatest in the right lower quadrant this time. Has had pain previously in the left upper quadrant with ulcers. He was seen by his primary care provider earlier this week and he is set up for multiple testing on 07 February. Things have progressively worsened and he was told to go to the ER or back to the clinic if things were worsening. The clinic is currently closely came to the ER. The culminating event was nearly passing out after 2 successive bowel movements this afternoon. He did not completely pass out. States that he has alternating diarrhea and normal bowel movements. No blood in stools. He states that he is nauseated even with thinking about eating. Timing/Duration: Getting Worse, Other (one month) Severity/Quality: Moderate, Cramping Location: Generalized Abdomen Radiation: RLQ Activities at Onset: None Modifying Factors: Worsens With Defecating, Worsens With Eating Associated Symptoms: No Back Pain, No Fever/Chills, Nausea/Vomiting Allergies and Home Medications Allergies Coded Allergies: prednisone (Verified Allergy, Intermediate, RASH, 04/23/15) hydrocodone (Verified Allergy, Unknown, 04/23/15) venom-honey bee (Verified Allergy, Unknown, 04/23/15) Home Medications Albuterol Sulfate Unknown Strength Hfa.aer.ad, 2 PUFF IH for SHORTNESS OF BREATH , (Reported) Amlodipine Besylate 5 Mg Tablet, 5 MG PO DAILY, #30 Ref 4 Prescribed by: JAMEEL PIMENTEL on 04/27/15 1038 Atorvastatin Calcium 80 Mg Tablet, 80 MG PO DAILY, (Reported) Baclofen 20 Mg Tablet, 20 MG PO TID PRN for SPASMS, (Reported) Clopidogrel Bisulfate 75 Mg Tablet, 75 MG PO DAILY, #30 Ref 11 Prescribed by: JOSE GUADALUPE SCHNEIDER on 02/29/16 1300 Dicyclomine HCl 20 Mg Tablet, 20 MG PO ACHS PRN for ABDOMINAL PAIN, #60 Ref 0 Prescribed by: SHA HOLDER on 02/01/172032 Ezetimibe 10 Mg Tablet, 10 MG PO DAILY, (Reported) Isosorbide Mononitrate 60 Mg Tab, 60 MG PO DAILY@0630, #30 Ref 11 Prescribed by: JOSE GUADALUPE SCHNEIDER on 02/29/16 1300 Meclizine HCl 25 Mg Tablet, 25 MG PO QID PRN for DIZZINESS, (Reported) Metoprolol Succinate 50 Mg Tab.er.24h, 50 MG PO Q12H, (Reported) Nitroglycerin 0.4 Mg Tab.subl, 0.4 MG SL for CHEST PAIN, (Reported) Omeprazole 40 Mg Capsule.dr, 40 MG PO DAILY, (Reported) Ondansetron 4 Mg Tab.rapdis, 4 MG PO Q6H PRN for NAUSEA/VOMITING, #8 Ref 0 Prescribed by: SHA HOLDER on 02/01/172032 Pantoprazole Sodium 40 Mg Tablet.dr, #90 (Reported) Paroxetine HCl 30 Mg Tablet, 30 MG PO DAILY, (Reported) Ranolazine 1,000 Mg Tab.er.12h, 1,000 MG PO BID, (Reported) Rivaroxaban 20 Mg Tablet, 20 MG PO DAILY, (Reported) Review of Systems Constitutional: see HPI, No chills, No fever EENTM: No Symptoms Reported Respiratory: No Symptoms Reported Cardiovascular: No Symptoms Reported Gastrointestinal: See HPI, Abdominal Pain, Diarrhea, Denies Nausea, Denies Vomiting Genitourinary: No Symptoms Reported Musculoskeletal: no symptoms reported All Other Systems Reviewed Negative Unless Noted: Yes Past Apzryxr-Recpsu-Sygapd Hx Patient Social History Alcohol Use: Rarely Uses Recreational Drug Use: No Smoking Status: Former Smoker Type Used: Cigarettes Former Smoker/When Quit: Apr 07, 1999 Recent Foreign Travel: No Contact w/Someone Who Travel: No Recent Infectious Disease Expo: No Recent Hopitalizations: No (last fall) Immunizations Up To Date Tetanus Booster (TDap): Unknown PED Vaccines UTD: No Seasonal Allergies Seasonal Allergies: Yes (environmental) Surgeries HX Surgeries: Yes (ulnar decompression, cyst removal) Surgeries: CABG, Coronary Stent, Orthopedic Respiratory Hx Respiratory Disorders: Yes Respiratory Disorders: Chronic Bronchitis, Sleep Apnea, COPD Cardiovascular Hx Cardiac Disorders: Yes (A flutter, CABG, MULTIPLE CATH/ANGIO/STENTS) Cardiac Disorders: Atrial Fibrillation, Coronary Artery Disease, High Cholesterol Neurological Hx Neurological Disorders: Yes Neurological Disorders: Stroke, TIA Reproductive System Hx Reproductive Disorders: No Sexually Transmitted Disease: No HIV/AIDS: No Genitourinary Hx Genitourinary Disorders: No Gastrointestinal Hx Gastrointestinal Disorders: Yes (peptic ulcer) Gastrointestinal Disorders: Ulcer Musculoskeletal Hx Musculoskeletal Disorders: Yes Musculoskeletal Disorders: Chronic Back Pain, Spasms Endocrine Hx Endocrine Disorders: No (Borderline DM) HEENT HX ENT Disorders: Yes (R eye (legally blind)) HEENT Disorders: Eye Injury, Double Vision Loss of Vision: Right Hearing Impairment: Denies Cancer Hx Cancer: No Psychosocial Hx Psychiatric Problems: No Behavioral Health Disorders: Sleep Difficulties, Anxiety, Depression Integumentary HX Skin/Integumentary Disorder: No Blood Transfusions Hx Blood Disorders: Yes (B12 deficiency anemia) Adverse Reaction to a Blood Tr: No Reviewed Nursing Assessment Reviewed/Agree w Nursing PMH: Yes Family Medical History Significant Family History: Heart Disease, Cancer, Diabetes Family Medial History: Brain cancer 19 FATHER Congestive heart failure 19 MOTHER Coronary artery disease 19 FATHER Diabetes mellitus 19 MOTHER Heart attack 19 FATHER 19 MOTHER Hypertension 19 FATHER 19 MOTHER Lung cancer 19 FATHER Physical Exam Vital Signs VS - Last 72 Hours, by Label 02/01/17 18:43 Temp 97.9 Pulse 105 Resp 16 B/P (MAP) 121/75 Pulse Ox 95 O2 Delivery Room Air Capillary Refill : Less Than 3 Seconds General Appearance: WD/WN, no apparent distress HEENT: PERRL/EOMI, pharynx normal Neck: full range of motion, supple Respiratory: lungs clear, no accessory muscle use Cardiovascular: regular rate, rhythm, no murmur Peripheral Pulses: 2+ Dorsalis Pedis (R), 2+ Left Dors-Pedis (L), 2+ Radial Pulses (R), 2+ Radial Pulses (L) Gastrointestinal: normal bowel sounds, soft, No guarding, No rebound, tenderness (mild RLQ) Extremities: non-tender, normal inspection, no pedal edema Back: normal inspection, no CVA tenderness, no vertebral tenderness Neurologic/Psychiatric: alert, oriented x 3 Skin: normal color, warm/dry Focused Exam Lactic Acid Level Laboratory Tests Test 02/01/17 18:55 Lactic Acid Level 1.57 MMOL/L (0.50-2.00) Progress/Results/Core Measures Results/Orders Lab Results Laboratory Tests Test 02/01/17 18:55 02/01/17 19:43 Range/Units White Blood Count 12.7 H 4.3-11.0 10^3/uL Red Blood Count 4.35 4.35-5.85 10^6/uL Hemoglobin 12.6 L 13.3-17.7 G/DL Hematocrit 37 L 40-54 % Mean Corpuscular Volume 84 80-99 FL Mean Corpuscular Hemoglobin 29 25-34 PG Mean Corpuscular Hemoglobin Concent 35 32-36 G/DL Red Cell Distribution Width 13.2 10.0-14.5 % Platelet Count 291 130-400 10^3/uL Mean Platelet Volume 9.9 7.4-10.4 FL Neutrophils (%) (Auto) 59 42-75 % Lymphocytes (%) (Auto) 32 12-44 % Monocytes (%) (Auto) 6 0-12 % Eosinophils (%) (Auto) 3 0-10 % Basophils (%) (Auto) 0 0-10 % Neutrophils # (Auto) 7.5 1.8-7.8 X 10^3 Lymphocytes # (Auto) 4.1 H 1.0-4.0 X 10^3 Monocytes # (Auto) 0.8 0.0-1.0 X 10^3 Eosinophils # (Auto) 0.3 0.0-0.3 10^3/uL Basophils # (Auto) 0.0 0.0-0.1 10^3/uL Sodium Level 138 135-145 MMOL/L Potassium Level 3.7 3.6-5.0 MMOL/L Chloride Level 104 98-107 MMOL/L Carbon Dioxide Level 24 21-32 MMOL/L Anion Gap 10 5-14 MMOL/L Blood Urea Nitrogen 8 7-18 MG/DL Creatinine 0.96 0.60-1.30 MG/DL Estimat Glomerular Filtration Rate > 60 BUN/Creatinine Ratio 8 Glucose Level 125 H 70-105 MG/DL Lactic Acid Level 1.57 0.50-2.00 MMOL/L Calcium Level 8.8 8.5-10.1 MG/DL Magnesium Level 2.0 1.8-2.4 MG/DL Total Bilirubin 0.4 0.1-1.0 MG/DL Aspartate Amino Transf (AST/SGOT) 11 5-34 U/L Alanine Aminotransferase (ALT/SGPT) 16 0-55 U/L Alkaline Phosphatase 72 40-136 U/L C-Reactive Protein High Sensitivity 0.90 H 0.00-0.50 MG/DL Total Protein 7.3 6.4-8.2 GM/DL Albumin 3.9 3.2-4.5 GM/DL Amylase Level 34 25-125 U/L Lipase 31 8-78 U/L Thyroid Stimulating Hormone (TSH) 0.91 0.35-4.94 UIU/ML Urine Color YELLOW Urine Clarity CLEAR Urine pH 5 5-9 Urine Specific [place] 1.025 H 1.016-1.022 Urine Protein 2+ H NEGATIVE Urine Glucose (UA) NEGATIVE NEGATIVE Urine Ketones 1+ H NEGATIVE Urine Nitrite NEGATIVE NEGATIVE Urine Bilirubin 1+ H NEGATIVE Urine Urobilinogen 1 NORMAL MG/DL Urine Leukocyte Esterase 1+ H NEGATIVE Urine RBC (Auto) NEGATIVE NEGATIVE Urine RBC RARE /HPF Urine WBC 0-2 /HPF Urine Crystals NONE /LPF Urine Bacteria NEGATIVE /HPF Urine Casts PRESENT /LPF Urine Hyaline Casts 10-25 H /LPF Urine Mucus LARGE H /LPF Urine Culture Indicated NO My Orders Orders - SHA HOLDER MD Amylase (02/01/17 18:43) Cbc With Automated Diff (02/01/17 18:43) Comprehensive Metabolic Panel (02/01/17 18:43) Hs C Reactive Protein (02/01/17 18:43) Lactic Acid Analyzer (02/01/17 18:43) Lipase (02/01/17 18:43) Magnesium (02/01/17 18:43) Thyroid Stimulating Hormone (02/01/17 18:43) Ua Culture If Indicated (02/01/17 18:43) Blood Culture (02/01/17 18:43) Saline Lock/Iv-Start (02/01/17 18:43) Ns Iv 1000 Ml (Sodium Chloride 0.9%) (02/01/17 18:43) Us Gallbladder [id number] (02/01/17 18:43) Ct Abdomen/Pelvis W (02/01/17 19:36) Iohexol Injection (Omnipaque 350 Mg/Ml 1 (02/01/17 19:45) Ns (Ivpb) (Sodium Chloride 0.9% Ivpb Bag (02/01/17 19:45) Ondansetron Injection (Zofran Injectio (02/01/17 20:30) Dicyclomine Capsule (Bentyl Capsule) (02/01/17 20:30) Medications Given in ED Current Medications Medications Dose Ordered Sig/Colette Route Start Time Stop Time Status Last Admin Dose Admin Iohexol 100 ml ONCE ONCE IV 02/01/17 19:45 02/01/17 19:46 DC 02/01/17 19:51 100 ML Ondansetron HCl 4 mg ONCE ONCE IVP 02/01/17 20:30 02/01/17 20:31 DC 02/01/17 20:32 4 MG Sodium Chloride 100 ml ONCE ONCE IV 02/01/17 19:45 02/01/17 19:46 DC 02/01/17 19:51 80 ML Sodium Chloride 1,000 ml @ 0 mls/hr Q0M ONCE IV 02/01/17 18:43 02/01/17 18:46 DC 02/01/17 19:20 1,000 MLS/HR Vital Signs/I&O Vital Sign - Last 12Hours 02/01/17 18:43 Temp 97.9 Pulse 105 Resp 16 B/P (MAP) 121/75 Pulse Ox 95 O2 Delivery Room Air Blood Pressure Mean: 90 Progress Note : Progress Note Seen and evaluated. IV, labs, UA, CT abdomen and pelvis and ultrasound right upper quadrant ordered. Normal saline 1 L bolus. Monitor patient. Patient complaining of some cramping and nausea. Zofran 4 mg IV and Bentyl 20 mg by mouth ordered. 2030: No acute findings. Discharged home with return precautions. Patient verbalize understanding instructions and agreement with plan. Diagnostic Imaging Diagonstic Imaging: CT Plain Films/CT/US/NM/MRI: abdomen, pelvis Comments VIA [facility]. [place], [place] NAME: OMAR CHATTERJEE [facility] REC#: [id number] PT STATUS: REG ER : 1970 PHYSICIAN: SHA HOLDER MD ADMIT DATE: 02/01/17/ER Draft Date of Exam:02/01/17 CT ABDOMEN/PELVIS W PROCEDURE: CT abdomen and pelvis with contrast. TECHNIQUE: Multiple contiguous axial images were obtained through the abdomen and pelvis after administration of intravenous contrast. INDICATION: Left upper quadrant pain, right flank pain, nausea and diarrhea. COMPARISON: None available. FINDINGS: Lower chest: The lung bases are clear. No pericardial or pleural effusion. Coronary artery calcifications. Peritoneum: No free intraperitoneal air or fluid. Liver and biliary system: The liver has diffuse hypoattenuation suggestive of hepatic steatosis. No focal hepatic lesion. Portal vein is patent. Gallbladder is decompressed without radiopaque gallstones. No biliary duct dilatation. Spleen and Pancreas: Spleen is normal. The pancreas enhances normally without mass lesion or peripancreatic inflammatory changes. Adrenals: Normal. tract: The kidneys enhance normally without suspicious mass or obstruction. Urinary bladder is decompressed. Prostate is not enlarged. GI tract: Stomach is decompressed. No bowel obstruction. No pericolonic inflammatory changes. No diverticulosis. Vasculature and Lymph nodes: Normal caliber aorta with scattered calcified atherosclerotic plaques. No abdominal or pelvic lymphadenopathy. Musculoskeletal: No concerning osseous lesion. IMPRESSION: 1. No acute inflammatory process in the abdomen or pelvis. No bowel obstruction. 2. Mild diffuse hepatic steatosis. Dictated on workstation # [id number] Dict: 02/01/172008 Trans: 02/01/17 2016 [id number] Interpreted by: FIONA MORENO MD Electronically signed by: Reviewed: Reviewed by Ri Diagonstic Imaging: Ultrasound Plain Films/CT/US/NM/MRI: abdomen Comments NAME: OMAR CHATTERJEE [facility] REC#: [id number] PT STATUS: REG ER : 1970 PHYSICIAN: SHA HOLDER MD ADMIT DATE: 02/01/17/ER Draft Date of Exam:02/01/17 US GALLBLADDER [id number] PROCEDURE: US gallbladder. TECHNIQUE: Multiple real-time grayscale images were obtained over the right upper quadrant in various projections. INDICATION: Right upper quadrant pain. COMPARISON: CT abdomen and pelvis performed earlier the same day. FINDINGS: The liver is on the upper limits of normal in size. It demonstrates diffuse increased echogenicity with poor through sound transmission indicative of hepatic steatosis. No focal hepatic lesion. The gallbladder is partially distended without gallstones, gallbladder wall thickening or pericholecystic fluid. Common bile duct is obscured by overlying bowel gas. The pancreas is also obscured by overlying bowel gas. The structures are therefore poorly evaluated. Right kidney is normal in size without hydronephrosis. IMPRESSION: 1. Normal gallbladder. 2. Diffuse hepatic steatosis. Dictated on workstation # [id number] Dict: 02/01/172018 Trans: 02/01/172024 [facility] [id number] Interpreted by: FIONA MORENO MD Electronically signed by: Departure Impression Impression: Primary Impression: Generalized abdominal pain Disposition: HOME, SELF-CARE Condition: Stable Departure-Patient Inst. Decision time for Depature: 20:31 Referrals: JUNIOR XIE MD (PCP/Family) Primary Care Physician Patient Instructions: Acute Abdomen (Belly Pain), Adult (DC), Irritable Bowel Syndrome (DC) Add. Discharge Instructions: All discharge instructions reviewed with patient and/or family. Voiced understanding. Take medications as directed. Follow-up with your doctor on Saturday for recheck and further evaluation and to determine further studies that are needed. Discussed with them about the studies that were done today. A copy of your chart has been sent to Dr. Xie. Return for worse pain, fever, vomiting, weakness, breathing problems or other concerns as needed. Drink plenty of fluids and use a bland diet. Scripts Ondansetron (Ondansetron Odt) 4 Mg Tab.rapdis 4 MG PO Q6H Y for NAUSEA/VOMITING, #8 TAB 0 Refills Prov: SHA HOLDER MD 02/01/17 Dicyclomine HCl (Dicyclomine HCl) 20 Mg Tablet 20 MG PO ACHS Y for ABDOMINAL PAIN, #60 TAB 0 Refills Prov: SHA HOLDER MD 02/01/17 Copy Copies To 1: JUNIOR XIE MD, TIMOTHY D MD Feb 01, 2017 18:55
[2017-02-01 19:04] LABS: BASOPHILS % (AUTO) 0 % (0-10); EOSINOPHILS # (AUTO) 0.3 10^3/uL (0.0-0.3); EOSINOPHILS % (AUTO) 3 % (0-10); LYMPHOCYTES # (AUTO) 4.1 X 10^3 (1.0-4.0); LYMPHOCYTES % (AUTO) 32 % (12-44); MEAN CORPUSCULAR HEMOGLOBIN 29 PG (25-34); MEAN CORPUSCULAR HGB CONC 35 G/DL (32-36); MEAN CORPUSCULAR VOLUME 84 FL (80-99); MEAN PLATELET VOLUME 9.9 FL (7.4-10.4); MONOCYTES # (AUTO) 0.8 X 10^3 (0.0-1.0); MONOCYTES % (AUTO) 6 % (0-12); NEUTROPHILS # (AUTO) 7.5 X 10^3 (1.8-7.8); NEUTROPHILS % (AUTO) 59 % (42-75); PLATELET COUNT 291 10^3/uL (130-400); RED BLOOD COUNT 4.35 10^6/uL (4.35-5.85); RED CELL DISTRIBUTION WIDTH 13.2 % (10.0-14.5); WHITE BLOOD COUNT 12.7 10^3/uL (4.3-11.0)
[2017-02-01 19:27] LABS: ALANINE AMINOTRANSFERASE 16 U/L (0-55); ALBUMIN 3.9 GM/DL (3.2-4.5); AMYLASE 34 U/L (25-125); ANION GAP 10 MMOL/L (5-14); ASPARTATE AMINO TRANSFERASE 11 U/L (5-34); BILIRUBIN,TOTAL 0.4 MG/DL (0.1-1.0); BLOOD UREA NITROGEN 8 MG/DL (7-18); BUN/CREATININE RATIO 8; CALCIUM 8.8 MG/DL (8.5-10.1); CARBON DIOXIDE 24 MMOL/L (21-32); CHLORIDE 104 MMOL/L (98-107); CREATININE SERUM 0.96 MG/DL (0.60-1.30); GFR ESTIMATED > 60; GLUCOSE 125 MG/DL (70-105); LIPASE 31 U/L (8-78); POTASSIUM 3.7 MMOL/L (3.6-5.0); SODIUM 138 MMOL/L (135-145); TOTAL PROTEIN 7.3 GM/DL (6.4-8.2)
[2017-02-01] MEDS ORDERED: IOHEXOL 350 MG/ML 100 ML (OMNIPAQUE 350) VIAL IV ONE (19:45)
[2017-02-01] MEDS ORDERED: NS 100 ML (IVPB) BAG IV ONE (19:45)
[2017-02-01 19:47] LABS: THYROID STIMULATING HORMONE 0.91 UIU/ML (0.35-4.94)
[2017-02-01 19:58] LABS: KETONES,URINE 1+ (NEGATIVE); LEUKOCYTE ESTERASE ,URINE 1+ (NEGATIVE); NITRITE,URINE NEGATIVE (NEGATIVE); PH,URINE 5 (5-9); PROTEIN,URINE 2+ (NEGATIVE); UROBILINOGEN,URINE 1 MG/DL (NORMAL)
[2017-02-01 20:12] LABS: BILIRUBIN,URINE 1+ (NEGATIVE); WBC,URINE 0-2 /HPF
--- NOTE | 2017-02-01 20:17 | Diagnostic Imaging Report ---
PROCEDURE: CT abdomen and pelvis with contrast. TECHNIQUE: Multiple contiguous axial images were obtained through the abdomen and pelvis after administration of intravenous contrast. INDICATION: Left upper quadrant pain, right flank pain, nausea and diarrhea. COMPARISON: None available. FINDINGS: Lower chest: The lung bases are clear. No pericardial or pleural effusion. Coronary artery calcifications. Peritoneum: No free intraperitoneal air or fluid. Liver and biliary system: The liver has diffuse hypoattenuation suggestive of hepatic steatosis. No focal hepatic lesion. Portal vein is patent. Gallbladder is decompressed without radiopaque gallstones. No biliary duct dilatation. Spleen and Pancreas: Spleen is normal. The pancreas enhances normally without mass lesion or peripancreatic inflammatory changes. Adrenals: Normal. tract: The kidneys enhance normally without suspicious mass or obstruction. Urinary bladder is decompressed. Prostate is not enlarged. GI tract: Stomach is decompressed. No bowel obstruction. No pericolonic inflammatory changes. No diverticulosis. Vasculature and Lymph nodes: Normal caliber aorta with scattered calcified atherosclerotic plaques. No abdominal or pelvic lymphadenopathy. Musculoskeletal: No concerning osseous lesion. IMPRESSION: 1. No acute inflammatory process in the abdomen or pelvis. No bowel obstruction. 2. Mild diffuse hepatic steatosis. Dictated by: Dictated on workstation # [id number]
--- NOTE | 2017-02-01 20:25 | Diagnostic Imaging Report ---
PROCEDURE: US gallbladder. TECHNIQUE: Multiple real-time grayscale images were obtained over the right upper quadrant in various projections. INDICATION: Right upper quadrant pain. COMPARISON: CT abdomen and pelvis performed earlier the same day. FINDINGS: The liver is on the upper limits of normal in size. It demonstrates diffuse increased echogenicity with poor through sound transmission indicative of hepatic steatosis. No focal hepatic lesion. The gallbladder is partially distended without gallstones, gallbladder wall thickening or pericholecystic fluid. Common bile duct is obscured by overlying bowel gas. The pancreas is also obscured by overlying bowel gas. The structures are therefore poorly evaluated. Right kidney is normal in size without hydronephrosis. IMPRESSION: 1. Normal gallbladder. 2. Diffuse hepatic steatosis. Dictated by: Dictated on workstation # [id number]
[2017-02-01] MEDS ORDERED: DICYCLOMINE 10 MG (BENTYL) CAP PO SCH (20:30)
[2017-02-01] MEDS ORDERED: ONDANSETRON 4 MG/2 ML (SDV) Z0FRAN IVP ONE (20:30)
[2017-02-01] MEDS ORDERED: DICY20TA10 PO (20:33)
[2017-02-01] MEDS ORDERED: ONDA4TAB11 PO (20:33)
[2017-02-01 20:56] VITALS: BP 102/65
== END 2017-02-01 20:56 | disposition home or self-care (01) ==
LOC: EDUNIT# 18:21 → ER 18:24
DX: R10.84 Generalized abdominal pain (principal); G47.30 Sleep apnea, unspecified; F41.9 Anxiety disorder, unspecified; J44.9 Chronic obstructive pulmonary disease, unspecified; F32.9 Major depressive disorder, single episode, unspecified; I48.91 Unspecified atrial fibrillation; I25.10 Atherosclerotic heart disease of native coronary artery without angina pectoris; E78.00 Pure hypercholesterolemia, unspecified; Z79.01 Long term (current) use of anticoagulants; Z86.73 Personal history of transient ischemic attack (TIA), and cerebral infarction without residual deficits; Z87.891 Personal history of nicotine dependence; Z95.5 Presence of coronary angioplasty implant and graft
CPT/HCPCS: 36415; 74177; 76705; 80053; 81000; 82150; 83605; 83690; 83735; 84443; 85025; 86141; 87040; 96361; 96374

== ENCOUNTER → 2017-02-07 | Outpatient (CLI) | payer MEDICARE, MEDICAID ==
[~2017-02-07] MED LIST changes: +DICY20TA10 PO; +ONDA4TAB11 PO
--- NOTE | 2017-02-07 14:04 | Diagnostic Imaging Report ---
PROCEDURE: US Aorta Doppler. TECHNIQUE: Multiple real time grayscale images were obtained over the abdominal aorta in various projections. INDICATION: Aortic pulsation. FINDINGS: The proximal abdominal aorta is obscured by bowel gas. The mid abdominal aorta measurement is 1.5 cm and distal is 1.4 cm, normal caliber. There are normal flow velocities as well below 100 cm/s. The right common iliac artery is 1 cm and the left common iliac artery is 1.1 cm in size, minimally ectatic. IMPRESSION: The proximal abdominal aorta is obscured. The mid and distal aorta demonstrates normal caliber. Dictated by: Dictated on workstation # [id number]
== END ==
LOC: RAD 08:58
PROVIDERS: ATTEND Family Medicine
DX: R09.89 Other specified symptoms and signs involving the circulatory and respiratory systems (principal); Z95.1 Presence of aortocoronary bypass graft
CPT/HCPCS: 93978

== ENCOUNTER 2017-02-22 05:56 | Outpatient (CLI) | payer MEDICARE, MEDICAID ==
[~2017-02-22] VITALS: Ht 185.4 cm; Wt 122.5 kg
== END 2017-02-22 09:06 ==
LOC: PREOP 05:56
PROVIDERS: ATTEND Surgery
DX: Z01.818 Encounter for other preprocedural examination (principal); K21.9 Gastro-esophageal reflux disease without esophagitis

== ENCOUNTER 2017-02-25 09:28 | Day surgery (SDC) | payer MEDICARE, MEDICAID ==
[~2017-02-25] VITALS: Ht 185.4 cm; Wt 122.5 kg
[2017-02-25] MEDS ORDERED: NS IV 500 ML 500 ML IV ONE (09:45)
[2017-02-25] MEDS ORDERED: NS IV 500 ML 500 ML ONE (09:46)
[2017-02-25 09:47] VITALS: BP 112/72
[2017-02-25] MEDS ORDERED: fentaNYL INJECTION 100 MCG/2 ML AMP ONE ×2 (10:28→10:29)
[2017-02-25] MEDS ORDERED: HURRICAINE EXT TUBE (BENZOCAINE) ONE (10:29)
[2017-02-25] MEDS ORDERED: MIDAZOLAM 2 MG/2 ML (VERSED) VIAL ONE ×4 (10:29)
--- NOTE | 2017-02-25 10:36 | History & Physicial ---
History of Present Illness History of Present Illness Reason for visit/HPI to undergo upper endoscopy and colonoscopy regarding epigastric pain and a change in his bowel habits. Date of Admission Date Seen by Provider: Feb 25, 2017 Time Seen by Provider: 10:34 I consulted on this patient on 02/25/17 10:33 Attending Physician Angel Baumann MD Admitting Physician Marta Lauren MD Consult Allergies and Home Medications Allergies Coded Allergies: prednisone (Verified Allergy, Intermediate, RASH, 04/23/15) hydrocodone (Verified Allergy, Unknown, 04/23/15) venom-honey bee (Verified Allergy, Unknown, 04/23/15) Home Medications Albuterol Sulfate Unknown Strength Hfa.aer.ad, 2 PUFF IH for SHORTNESS OF BREATH , (Reported) Amlodipine Besylate 5 Mg Tablet, 5 MG PO DAILY, #30 Ref 4 Prescribed by: JAMEEL PIMENTEL on 04/27/15 1038 Atorvastatin Calcium 80 Mg Tablet, 80 MG PO DAILY, (Reported) Baclofen 20 Mg Tablet, 20 MG PO TID PRN for SPASMS, (Reported) Clopidogrel Bisulfate 75 Mg Tablet, 75 MG PO DAILY, #30 Ref 11 Prescribed by: JOSE GUADALUPE SCHNEIDER on 02/29/16 1300 Dicyclomine HCl 20 Mg Tablet, 20 MG PO ACHS PRN for ABDOMINAL PAIN, #60 Ref 0 Prescribed by: SHA HOLDER on 02/01/172032 Ezetimibe 10 Mg Tablet, 10 MG PO DAILY, (Reported) Isosorbide Mononitrate 60 Mg Tab, 60 MG PO DAILY@0630, #30 Ref 11 Prescribed by: JOSE GUADALUPE SCHNEIDER on 02/29/16 1300 Meclizine HCl 25 Mg Tablet, 25 MG PO QID PRN for DIZZINESS, (Reported) Metoprolol Succinate 50 Mg Tab.er.24h, 50 MG PO Q12H, (Reported) Nitroglycerin 0.4 Mg Tab.subl, 0.4 MG SL for CHEST PAIN, (Reported) Omeprazole 40 Mg Capsule.dr, 40 MG PO DAILY, (Reported) Ondansetron 4 Mg Tab.rapdis, 4 MG PO Q6H PRN for NAUSEA/VOMITING, #8 Ref 0 Prescribed by: SHA HOLDER on 02/01/172032 Pantoprazole Sodium 40 Mg Tablet., #90 (Reported) Paroxetine HCl 30 Mg Tablet, 30 MG PO DAILY, (Reported) Ranolazine 1,000 Mg Tab.er.12h, 1,000 MG PO BID, (Reported) Rivaroxaban 20 Mg Tablet, 20 MG PO DAILY, (Reported) Past Xjumpnd-Jalegx-Zexggn Hx Patient Social History Marrital Status: cohabiting Employed/Student: unemployed Alcohol Use: Occasionally Uses Recreational Drug Use: No Smoking Status: Current Everyday Smoker Former smoker/When Quit: Apr 07, 1999 Type Used: Cigarettes Recent Foreign Travel: No Contact w/other who traveled: No Recent Hopitalizations: No Recent Infectious Disease Expo: No Immunizations Up To Date Tetanus Booster (TDap): Unknown Seasonal Allergies Seasonal Allergies: Yes Surgeries HX Surgeries: Yes (ulnar decompression, cyst removal) Surgeries: CABG, Coronary Stent, Orthopedic Respiratory Hx Respiratory Disorders: Yes Respiratory Disorders: Chronic Bronchitis Cardiovascular Hx Cardiovascular Disorders: Yes (A flutter, CABG, MULTIPLE CATH/ANGIO/STENTS) Cardiac Disorders: Atrial Fibrillation, Coronary Artery Disease, High Cholesterol, Hypertension Neurological Hx Neurological Disorders: Yes Neurological Disorders: Stroke, TIA Reproductive System Hx Reproductive Disorders: No Sexually Transmitted Disease: No HIV/AIDS: No Genitourinary Hx Genitourinary Disorders: No Gastrointestinal Hx Gastrointestinal Disorders: Yes Gastrointestinal Disorders: Gastroesophageal Reflux, Chronic Diarrhea, Ulcer Musculoskeletal Hx Musculoskeletal Disorders: Yes Musculoskeletal Disorders: Chronic Back Pain, Spasms Endocrine Hx Endocrine Disorders: No (Borderline DM) HEENT HX ENT Disorders: Yes (R eye (legally blind)) HEENT Disorders: Eye Injury, Double Vision Loss of Vision: Right Hearing Impairment: Denies Cancer Hx Cancer: No Psychosocial Hx Psychiatric Problems: Yes (N/A) Behavioral Health Disorders: Sleep Difficulties, Anxiety, Depression Integumentary HX Skin/Integumentary Disorder: No Blood Transfusions Hx Blood Disorders: Yes (B12 deficiency anemia) Adverse Reaction to a Blood Tr: No (N/A) Family Medical History Significant Family History: Heart Disease, Cancer, Diabetes Family Hx: Brain cancer 19 FATHER Congestive heart failure 19 MOTHER Coronary artery disease 19 FATHER Diabetes mellitus 19 MOTHER Heart attack 19 FATHER 19 MOTHER Hypertension 19 FATHER 19 MOTHER Lung cancer 19 FATHER Constitutional: malaise Respiratory: cough Cardiovascular: no symptoms reported Gastrointestinal: abdominal pain (LLQ), diarrhea Genitourinary: no symptoms reported Musculoskeletal: back pain, joint pain Skin: no symptoms reported Physical Exam Vital Signs Vital Sign - Last 12Hours 02/25/17 09:47 Temp 97.5 Pulse 87 Resp 16 B/P (MAP) 112/72 Pulse Ox 95 O2 Delivery Room Air Capillary Refill : General Appearance: No Apparent Distress HEENT: Normal ENT Inspection Neck: Normal Inspection Respiratory: Lungs Clear Cardiovascular: Regular Rate, Rhythm Gastrointestinal: Non Tender, Soft Rectal: Deferred Extremity: Normal Inspection Neurologic/Psychiatric: Alert, Oriented x3 Skin: Normal Color, Warm/Dry Assessment/Plan Assessment and Plan gentleman with epigastric pain and a change in his bowel habits. Offered upper endoscopy with concomitant colonoscopy. Problems: ANGEL BAUMANN MD Feb 25, 2017 10:36 am
--- NOTE | 2017-02-25 10:36 | Conscious Sedation/ASA ---
Conscious Sedation Pre-Proced Time Reviewed: 10:36 ASA Class: 3 Airway Mallampati Classification: ([place] appropriate class) I. II. III, IV Lungs Heart ASA score ASA 1: a normal healthy patient ASA 2: a patient with a mild systemic disease (mid diabetes, controlled hypertension, obesity ASA 3: a patient with a severe systemic disease that limits activity (angina , COPD, prior Myocardial infarction) ASA 4: a patient with an incapacitating disease that is a constant threat to life (CHF, renal failure) ASA 5: a moribund patient not expected to survive 24 hrs. (ruptured aneurysm) ASA 6: a declared brain patient whose organs are being harvested. For emergent operations, add the letter E after the classification Grade 2 Sedation Plan: Discussed options with patient/fam Note The patient is an appropriate candidate to undergo the planned procedure, sedation, and anesthesia. The patient immediately re-assessed prior to indication. MANOJ BAUMANN MD Feb 25, 2017 10:36 am
[2017-02-25] MEDS: fentaNYL INJECTION 100 MCG/2 ML AMP IVP PRN ×3 (10:39→10:54)
[2017-02-25] MEDS: MIDAZOLAM 2 MG/2 ML (VERSED) VIAL IVP PRN ×4 (10:42→10:57)
--- NOTE | 2017-02-25 11:08 | Endo Procedure Record ---
Endo Procedure Report Date of Procedure Feb 25, 2017 Surgeon (s) MANOJ BAUMANN MD Post Procedure/Op Diagnosis EGD: Gastric and duodenal erosions Colonoscopy: 2 mm sigmoid colon polyp Procedure Performed 1.EGD with antral biopsy 2. Colonoscopy to cecum 3.snare polypectomy Description of Procedure Anesthesia Type: Conscious Sedation Specimen(s) collected/removed antral mucosa. Sigmoid colon polyp Description of the Procedure INDICATION FOR PROCEDURES: THIS GENTLEMAN REPORTED EPIGASTRIC PAIN AND A CHANGE IN HIS BOWEL HABITS OVER THE LAST SEVERAL WEEKS. THEREFORE, UPPER ENDOSCOPY AND CONCOMITANT COLONOSCOPY WERE OFFERED.INFORMED CONSENT WAS OBTAINED AFTER REVIEWING THE PROCEDURES IN DETAIL. DESCRIPTION OF THE PROCEDURES: EGD: He was placed in left lateral decubitus position and his vital signs were monitored. Conscious sedation was achieved using Versed and fentanyl. The flexible gastroscope was then introduced down the esophagus, past the stomach, into the proximal duodenum. FINDINGS: Normal esophagus. Gastric and antral erosions. Biopsy for H. pylori was obtained from the gastric antrum. He tolerated the procedure well and was turned around in preparation for colonoscopy. Impression: Epigastric pain. Gastric and antral erosions. H. pylori status pending. COLONOSCOPY: Digital rectal examination was unremarkable. The colonoscope was then introduced into the rectum and advanced to the cecum. It was then withdrawn slowly and the mucosa examined in a systematic fashion. Findin mm polyp at the distal sigmoid colon that was snared and retrieved. He tolerated the procedure well and was taken back to the nursing area in a stable condition. Impression: Change in bowel habits. 3 mm sigmoid polyp excised. Recommend repeating in 5 years. Copies To: JUNIOR XIE MD, XAVIER M MD Feb 25, 2017 11:08 am
--- NOTE | 2017-02-25 11:09 | Discharge Inst-Simple/Standard ---
Discharge Inst-Standard Discharge Medications New, Converted or Re-Newed RX: Other Patient Instructions/Follow Up Plan of Care/Instructions/FU: follow-up with his primary Activity as Tolerated: Yes Discharge Diet: No Restrictions MANOJ BAUMANN MD Feb 25, 2017 11:09 am
[2017-02-25] MEDS ORDERED: HURRICAINE EXT TUBE (BENZOCAINE) XX ONE (11:15)
[2017-02-25 11:45] VITALS: BP 146/86
[2017-02-25] MEDS ORDERED: PRAS10TA6 PO (11:51)
[2017-02-25] MEDS ORDERED: DULO60CA6 PO (11:51)
[2017-02-25] MEDS ORDERED: DULO30CA3 PO (11:51)
[2017-02-25 12:15] VITALS: BP 131/84
[2017-02-25 12:45] VITALS: BP 125/86
== END 2017-02-25 12:45 | disposition home or self-care (01) ==
LOC: ENDO 09:28
PROVIDERS: ATTEND Surgery
DX: K25.9 Gastric ulcer, unspecified as acute or chronic, without hemorrhage or perforation (principal); K63.5 Polyp of colon; K26.9 Duodenal ulcer, unspecified as acute or chronic, without hemorrhage or perforation; F17.210 Nicotine dependence, cigarettes, uncomplicated; Z95.1 Presence of aortocoronary bypass graft; Z95.5 Presence of coronary angioplasty implant and graft; I48.91 Unspecified atrial fibrillation; I25.10 Atherosclerotic heart disease of native coronary artery without angina pectoris; E78.00 Pure hypercholesterolemia, unspecified; I10 Essential (primary) hypertension; Z86.73 Personal history of transient ischemic attack (TIA), and cerebral infarction without residual deficits; J21.9 Acute bronchiolitis, unspecified; Z79.899 Other long term (current) drug therapy

== ENCOUNTER → 2017-03-28 | Outpatient (CLI) | payer MEDICAID, MEDICARE ==
[~2017-03-28] MED LIST changes: +CATHETER FLUSH 10 ML SYR IV PRN; +DULO30CA3 PO; +DULO60CA6 PO; +IOHEXOL 350 MG/ML 100 ML (OMNIPAQUE 350) VIAL IV ONE; +IOHEXOL 350 MG/ML 150 ML (OMNIPAQUE 350) VIAL IV ONE; +NS 100 ML (IVPB) BAG IV ONE
--- NOTE | 2017-03-28 15:34 | Diagnostic Imaging Report ---
PROCEDURE: CT angiography of the abdomen with and without contrast. TECHNIQUE: Multiple contiguous axial images were obtained through the abdomen and pelvis after administration of intravenous contrast. MIP reconstructions were made. INDICATION: Abdominal pain. FINDINGS: The previous CT abdomen/pelvis exam of 02/01/2017 failed to show any sign of an acute abnormality of the abdomen or pelvis. On this study, there are multiple small nonobstructive calculi within both kidneys. Both kidneys do show excretion of the contrast, and there is no sign of obstruction of either collecting system. The distal ureters were not visualized, however. The aorta is small and similar to the prior exam. The aorta measures 1.6 x 1.5 cm. There is no sign of a dissection, and there is no periaortic fluid collection to suggest an acute abnormality. There is no sign of a hemodynamically significant stenosis of the celiac axis, superior mesenteric artery, renal arteries, or inferior mesenteric artery. There is atherosclerotic disease involving the origins of both common iliac arteries, but there is no hemodynamically significant stenosis of these vessels. As noted on the prior exam, the liver is of lower density than usually seen. This does suggest fatty metamorphosis. The spleen, pancreas, adrenals, gallbladder, and inferior vena cava are unremarkable for an acute abnormality. The stomach is not well distended and consequently difficult to assess. There is no mass or free fluid collection identified. There is no sign of a bowel obstruction. The lung bases are clear. The heart is not enlarged, but there are coronary artery calcifications evident. The patient also appears to have had a prior coronary artery bypass procedure. The bone windows show no sign of a fracture or of a destructive lesion. IMPRESSION: 1. There is no acute abnormality of the abdomen. In particular, there is no sign of an aneurysm or dissection of the aorta. 2. There are small nonobstructive calculi within both kidneys, but there is no evidence for obstruction of either collecting system. 3. The heart is not enlarged, but there are coronary artery calcifications and there is evidence of prior cardiac surgery. Dictated by: Dictated on workstation # [id number]
== END ==
LOC: RAD 14:04
PROVIDERS: ATTEND Family Medicine
DX: N20.0 Calculus of kidney (principal); I25.10 Atherosclerotic heart disease of native coronary artery without angina pectoris; R19.7 Diarrhea, unspecified; R10.84 Generalized abdominal pain
CPT/HCPCS: 74175

== ENCOUNTER 2017-07-03 18:25 | Emergency (ER) | payer MEDICAID, MEDICARE ==
[~2017-07-03] VITALS: Ht 185.4 cm; Wt 122.5 kg
[~2017-07-03 18:25] MED LIST changes: -CATHETER FLUSH 10 ML SYR IV PRN; -IOHEXOL 350 MG/ML 100 ML (OMNIPAQUE 350) VIAL IV ONE; -IOHEXOL 350 MG/ML 150 ML (OMNIPAQUE 350) VIAL IV ONE; -METO-272 PO; +METO-370 PO; -NS 100 ML (IVPB) BAG IV ONE
--- OUTSIDE RECORDS SUMMARY | 2017-07-03 18:31 | XMS REPORT ---
Author Author ROJAS JUNIOR [facility] Address [address] [place] [address] Care Team Providers Care Hotel Director Name Role Phone ROJASLYRIC COLMENARESHANY Unavailable PROBLEMS Type Condition ICD9-CM Code [id number] Code Onset Dates Condition Status SNOMED Code Problem History of stroke Z86.73 Active 018614609 Problem S/P CABG x 5 Z95.1 Active 824208159 Problem Anemia D64.9 Active 651206276 Problem Post traumatic stress disorder (PTSD) F43.10 Active 54039909 Problem Essential hypertension I10 Active 10062735 Problem Panic attack F41.0 Active 194505144 Problem Sciatica, unspecified side M54.30 Active 74269532 Problem Generalized anxiety disorder F41.1 Active 32577156 Problem Sciatica of left side M54.32 Active 83908173 Problem Intractable migraine without aura and with status migrainosus G43.011 Active 051930100 Problem Cannabis abuse F12.10 Active 20388145 Problem 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 Active 96468210 Problem Hyperlipidemia, unspecified E78.5 Active 55894656 Problem 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 Active 11798224 Problem Chronic obstructive pulmonary disease, unspecified J44.9 Active 27923596 Problem Hepatic steatosis K76.0 Active 128940935 Problem Other elevated white blood cell count D72.828 Active 237107725 Problem Mixed obsessional thoughts and acts F42.2 Active 61248252 Problem Diarrhea, unspecified type R19.7 Active 55303988 Problem Depression F32.9 Active 59473457 Problem GERD (gastroesophageal reflux disease) K21.9 Active 223448625 Problem Hyperplastic colonic polyp, unspecified part of colon K63.5 Active 606911843 Problem Anticoagulant long-term use Z79.01 Active 510006990 Problem Prediabetes R73.03 Active 699795869 Problem Vertigo R42 Active 989394652 Problem Paroxysmal atrial fibrillation I48.0 Active 854181603 Problem 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 Active 498266772 ALLERGIES Substance Reaction Event Type Date Status Vicodin Unknown Drug Allergy Jan, Active PredniSONE Unknown Drug Allergy Jan, Active SOCIAL HISTORY Never Assessed PLAN OF CARE Activity Details Follow Up prn Reason: VITAL SIGNS Height 73 in 2017-01-03 Weight 286 lbs 2017-01-03 Temperature 98 degrees Fahrenheit 2017-01-03 Heart Rate 90 bpm 2017-01-03 Respiratory Rate 22 2017-01-03 BMI 37.73 kg/m2 2017-01-03 Blood pressure systolic 110 mmHg 2017-01-03 Blood pressure diastolic 80 mmHg 2017-01-03 MEDICATIONS Medication Instructions Dosage Frequency Start Date End Date Duration Status Praluent 150 MG/ML Subcutaneous every 2 weeks 1 ml Active Promethazine HCl 50 MG Orally every 6 hrs 0.5 tablet as needed for nausea 6h Jun, Active Nitrostat 0.4 MG Sublingual q5 min max 3 doses in 15 min as needed for angina 1 tablet Active Trazodone HCl 50 MG Orally Once a day 1 - 2 tablet at bedtime as needed 24h Active Isosorbide Mononitrate CR 60 MG TAKE 1 TABLET BY MOUTH ONCE DAILY Active Pantoprazole Sodium 40 mg Orally Once a day 1 tablet 24h Jun, 90 days Active Zetia 10 MG Orally Once a day 1 tablet 24h Active Xarelto 20 MG Orally Once a day 1 tablet with food 24h 30 Active Baclofen 20 TAKE 1 TABLET BY MOUTH THREE TIMES DAILY WITH FOOD OR MILK 30 Active Metoprolol Succinate ER 50 MG Orally 2 times a day 1 tablet 12h Active Tylenol Active Ventolin HFA 108 (90 Base) MCG/ACT Inhalation every 6 hrs 2 puffs as needed 6h Active Effient 10 MG Orally Once a day 1 tablet 24h Active Combivent Respimat 20-100 MCG/ACT Inhalation Four times a day 1 puff 6h 30 days Active Amlodipine Besylate 5 MG Orally Once a day 1 tablet 24h Active Ranexa 1000 MG Orally Twice a day 1 tablet 12h Active Duloxetine HCl 60 mg Orally Twice a day 1 capsule ( 30mg cap) 12h 17 Aug, 2016 Active Plavix 75 MG Orally Once a day 1 tablet 24h Active Atorvastatin Calcium 80 MG Orally Once a day 1 tablet 24h Active Meclizine HCl 25 Orally 4 times a day 1 tablet as needed 6h 30 days Active RESULTS Name Result Date Reference Range TSH 2017-01-03 TSH 1.210 0.450-4.500 CBC 2017-01-03 WBC 11.9 3.4-10.8 RBC 4.79 4.14-5.80 Hemoglobin 13.7 12.6-17.7 Hematocrit 41.3 37.5-51.0 MCV 86 79-97 MCH 28.6 26.6-33.0 MCHC 33.2 31.5-35.7 RDW 14.2 12.3-15.4 Platelets 323 150-379 Neutrophils 63 Lymphs 28 Monocytes 5 Eos 3 Basos 1 Immature Cells Neutrophils (Absolute) 7.6 1.4-7.0 Lymphs (Absolute) 3.4 0.7-3.1 Monocytes(Absolute) 0.5 0.1-0.9 Eos (Absolute) 0.4 0.0-0.4 Baso (Absolute) 0.1 0.0-0.2 Immature Granulocytes 0 Immature Grans (Abs) 0.0 0.0-0.1 NR Hematology Comments: LIPID PANEL 2017-01-03 Cholesterol, Total 287 100-199 Triglycerides 378 0-149 HDL Cholesterol 26 >39 VLDL Cholesterol Rodrigo 76 5-40 LDL Cholesterol Calc 185 0-99 CMP 2017-01-03 Glucose, Serum 136 65-99 BUN 8 6-24 Creatinine, Serum 0.88 0.76-1.27 eGFR If NonAfricn Am 104 >59 eGFR If Africn Am 121 >59 BUN/Creatinine Ratio 9 9-20 Sodium, Serum 142 134-144 Potassium, Serum 4.5 3.5-5.2 Chloride, Serum 100 96-106 Carbon Dioxide, Total 24 18-29 Calcium, Serum 9.2 8.7-10.2 Protein, Total, Serum 7.2 6.0-8.5 Albumin, Serum 4.4 3.5-5.5 Globulin, Total 2.8 1.5-4.5 A/G Ratio 1.6 1.2-2.2 Bilirubin, Total 0.4 0.0-1.2 Alkaline Phosphatase, S 86 39-117 AST (SGOT) 15 0-40 ALT (SGPT) 13 0-44 Xray : Spine, Lumbar 2-3 views (IN HOUSE) 2017-01-03 PROCEDURES Procedure Date Ordered Result [facility] January 03, 2017 X-RAY EXAM OF LOWER SPINE January 03, 2017 CRITICAL ACCESS HOSPITAL VISIT ESTABLISHED PATIENT January 03, 2017 VENFILOMENA, ROUTINE* January 03, 2017 IMMUNIZATIONS No Known Immunizations MEDICAL (GENERAL) HISTORY Type Description Date Medical History 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
--- OUTSIDE RECORDS SUMMARY | 2017-07-03 18:32 | XMS REPORT ---
Author Author KiaraKHOA [facility] Address [address] [place] [address] Care Team Providers Care Detective Private Eye Name Role Phone KHOA Craig Unavailable PROBLEMS Type Condition ICD9-CM Code [id number] Code Onset Dates Condition Status SNOMED Code Problem Vertigo R42 Active 047375276 Problem Post traumatic stress disorder (PTSD) F43.10 Active 79302900 Problem Generalized anxiety disorder F41.1 Active 86116671 Problem Hepatic steatosis K76.0 Active 278558023 Problem Sciatica, unspecified side M54.30 Active 05195715 Problem Diarrhea, unspecified type R19.7 Active 09734669 Problem Essential hypertension I10 Active 15153255 Problem Anemia D64.9 Active 768669949 Problem Intractable migraine without aura and with status migrainosus G43.011 Active 654954961 Problem Panic attack F41.0 Active 621692486 Problem Other elevated white blood cell count D72.828 Active 582843313 Problem Sciatica of left side M54.32 Active 01690796 Problem Hyperlipidemia, unspecified E78.5 Active 25091294 Problem Hyperplastic colonic polyp, unspecified part of colon K63.5 Active 198466554 Problem Chronic obstructive pulmonary disease, unspecified J44.9 Active 41337965 Problem 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 Active 77478315 Problem GERD (gastroesophageal reflux disease) K21.9 Active 368329814 Problem Paroxysmal atrial fibrillation I48.0 Active 019830531 Problem History of stroke Z86.73 Active 760708190 Problem Anticoagulant long-term use Z79.01 Active 540678582 Problem 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 Active 487801137 Problem S/P CABG x 5 Z95.1 Active 069798215 Problem Depression F32.9 Active 02885679 Problem Prediabetes R73.03 Active 979618685 ALLERGIES Substance Reaction Event Type Date Status Vicodin Unknown Drug Allergy Aug, Active PredniSONE Unknown Drug Allergy Aug, Active SOCIAL HISTORY No smoking Hx information available PLAN OF CARE Activity Details Follow Up 6 Weeks Reason: VITAL SIGNS Height 73 in 2016-08-21 Weight 295.4 lbs 2016-08-21 Heart Rate 80 bpm 2016-08-21 Respiratory Rate 20 2016-08-21 BMI 38.97 kg/m2 2016-08-21 Blood pressure systolic 118 mmHg 2016-08-21 Blood pressure diastolic 88 mmHg 2016-08-21 MEDICATIONS Medication Instructions Dosage Frequency Start Date End Date Duration Status Zetia 10 MG Orally Once a day 1 tablet 24h Active Duloxetine HCl 60 mg Orally Once a day 1 capsule (+30mg cap) 24h Aug, 90 days Active Ranexa 1000 MG Orally Twice a day 1 tablet 12h Active Meclizine HCl 25 Orally 4 times a day 1 tablet as needed 6h 30 days Active Trazodone HCl 50 MG Orally Once a day 1 - 2 tablet at bedtime as needed 24h 30 days Active Effient 10 MG Orally Once a day 1 tablet 24h Active Metoprolol Succinate ER 50 MG Orally 2 times a day 1 tablet 12h Active Plavix 75 MG Orally Once a day 1 tablet 24h Active Atorvastatin Calcium 80 MG Orally Once a day 1 tablet 24h 90 Active Xarelto 20 MG Orally Once a day 1 tablet with food 24h 30 Active Promethazine HCl 50 mg Orally every 6 hrs 0.5 tablet as needed for nausea 6h Jun, Active Isosorbide Mononitrate CR 60 MG TAKE 1 TABLET BY MOUTH ONCE DAILY Active Baclofen 20 TAKE 1 TABLET BY MOUTH THREE TIMES DAILY WITH FOOD OR MILK 30 Active Pantoprazole Sodium 40 mg Orally Once a day 1 tablet 24h Jun, 30 day(s) Active Pradaxa Active Amlodipine Besylate 5 MG Orally Once a day 1 tablet 24h Active Nitrostat 0.4 MG Sublingual q5 min max 3 doses in 15 min as needed for angina 1 tablet Active Symbicort Active Duloxetine HCl 30 MG Orally daily 1 capsule (+ 60mg cap) 24h Jun, 90 days Active Ventolin HFA 108 (90 Base) MCG/ACT Inhalation every 6 hrs 2 puffs as needed 6h Active Tylenol Active RESULTS No Results PROCEDURES Procedure Date Ordered Related Diagnosis Body Site HC VISIT ESTABLISHED PATIENT Aug 21, 2016 Office Visit, Est Pt., Level 3 Aug 21, 2016 IMMUNIZATIONS No Known Immunizations
--- OUTSIDE RECORDS SUMMARY | 2017-07-03 18:32 | XMS REPORT ---
Author Author ROJAS JUNIOR [facility] Address [address] [place] [address] Care Team Providers Care Motion Picture Projectionist Apprentice Name Role Phone LYRIC XIEHANY Unavailable PROBLEMS Type Condition ICD9-CM Code [id number] Code Onset Dates Condition Status SNOMED Code Problem Vertigo R42 Active 465454457 Problem Post traumatic stress disorder (PTSD) F43.10 Active 06363042 Problem Generalized anxiety disorder F41.1 Active 37758326 Problem Hepatic steatosis K76.0 Active 036896973 Problem Sciatica, unspecified side M54.30 Active 45935749 Problem Diarrhea, unspecified type R19.7 Active 04125211 Problem Essential hypertension I10 Active 82003758 Problem Anemia D64.9 Active 002558232 Problem Intractable migraine without aura and with status migrainosus G43.011 Active 135088121 Problem Panic attack F41.0 Active 156087362 Problem Other elevated white blood cell count D72.828 Active 284124193 Problem Sciatica of left side M54.32 Active 52803393 Problem Hyperlipidemia, unspecified E78.5 Active 53755213 Problem Hyperplastic colonic polyp, unspecified part of colon K63.5 Active 717508723 Problem Chronic obstructive pulmonary disease, unspecified J44.9 Active 75907505 Problem 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 Active 40962846 Problem GERD (gastroesophageal reflux disease) K21.9 Active 127414346 Problem Paroxysmal atrial fibrillation I48.0 Active 761760912 Problem History of stroke Z86.73 Active 888730916 Problem Anticoagulant long-term use Z79.01 Active 453584651 Problem 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
--- OUTSIDE RECORDS SUMMARY | 2017-07-03 18:32 | XMS REPORT ---
Author Author ROJAS JUNIOR [facility] Address [address] [place] [address] Care Team Providers Care Forensic Dna Analyst Name Role Phone LYRIC XIEHANY Unavailable PROBLEMS Type Condition ICD9-CM Code [id number] Code Onset Dates Condition Status SNOMED Code Problem Vertigo R42 Active 547304133 Problem Post traumatic stress disorder (PTSD) F43.10 Active 34382131 Problem Generalized anxiety disorder F41.1 Active 74722156 Problem Hepatic steatosis K76.0 Active 436188594 Problem Sciatica, unspecified side M54.30 Active 63760440 Problem Diarrhea, unspecified type R19.7 Active 20256866 Problem Essential hypertension I10 Active 37226393 Problem Anemia D64.9 Active 467885390 Problem Intractable migraine without aura and with status migrainosus G43.011 Active 503418546 Problem Panic attack F41.0 Active 354592790 Problem Other elevated white blood cell count D72.828 Active 413377968 Problem Sciatica of left side M54.32 Active 57204274 Problem Hyperlipidemia, unspecified E78.5 Active 89115742 Problem Hyperplastic colonic polyp, unspecified part of colon K63.5 Active 916667502 Problem Chronic obstructive pulmonary disease, unspecified J44.9 Active 94280593 Problem 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 Active 41331309 Problem GERD (gastroesophageal reflux disease) K21.9 Active 924885509 Problem Paroxysmal atrial fibrillation I48.0 Active 158811012 Problem History of stroke Z86.73 Active 339929916 Problem Anticoagulant long-term use Z79.01 Active 841360722 Problem 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
--- OUTSIDE RECORDS SUMMARY | 2017-07-03 18:32 | XMS REPORT ---
Author Author ROJAS JUNIOR [facility] Address [address] [place] [address] Care Team Providers Care Information Technology Analyst Name Role Phone LYRIC XIEHANY Unavailable PROBLEMS Type Condition ICD9-CM Code RHL62-DC Code Onset Dates Condition Status SNOMED Code Problem Vertigo R42 Active 729615414 Problem Post traumatic stress disorder (PTSD) F43.10 Active 34003831 Problem Generalized anxiety disorder F41.1 Active 29914187 Problem Hepatic steatosis K76.0 Active 764076233 Problem Sciatica, unspecified side M54.30 Active 32230577 Problem Diarrhea, unspecified type R19.7 Active 41646975 Problem Essential hypertension I10 Active 75896317 Problem Anemia D64.9 Active 614934805 Problem Intractable migraine without aura and with status migrainosus G43.011 Active 566185405 Problem Panic attack F41.0 Active 593151191 Problem Other elevated white blood cell count D72.828 Active 919744969 Problem Sciatica of left side M54.32 Active 63275673 Problem Hyperlipidemia, unspecified E78.5 Active 90763966 Problem Hyperplastic colonic polyp, unspecified part of colon K63.5 Active 594728470 Problem Chronic obstructive pulmonary disease, unspecified J44.9 Active 03312643 Problem 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 Active 14383342 Problem GERD (gastroesophageal reflux disease) K21.9 Active 311789102 Problem Paroxysmal atrial fibrillation I48.0 Active 581494311 Problem History of stroke Z86.73 Active 687694786 Problem Anticoagulant long-term use Z79.01 Active 160536679 Problem 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
--- OUTSIDE RECORDS SUMMARY | 2017-07-03 18:34 | XMS REPORT ---
Author Author ROJAS JUNIOR [facility] Address [address] [place] [address] Care Team Providers Care Catalyst Supervisor Name Role Phone LYRIC XIEHANY Unavailable PROBLEMS Type Condition ICD9-CM Code QPZ44-NP Code Onset Dates Condition Status SNOMED Code Problem Vertigo R42 Active 597282879 Problem Post traumatic stress disorder (PTSD) F43.10 Active 63374891 Problem Generalized anxiety disorder F41.1 Active 40272900 Problem Hepatic steatosis K76.0 Active 991404966 Problem Sciatica, unspecified side M54.30 Active 74020432 Problem Diarrhea, unspecified type R19.7 Active 15120220 Problem Essential hypertension I10 Active 28136550 Problem Anemia D64.9 Active 291739036 Problem Intractable migraine without aura and with status migrainosus G43.011 Active 549440190 Problem Panic attack F41.0 Active 099098154 Problem Other elevated white blood cell count D72.828 Active 008499127 Problem Sciatica of left side M54.32 Active 73392225 Problem Hyperlipidemia, unspecified E78.5 Active 98574729 Problem Hyperplastic colonic polyp, unspecified part of colon K63.5 Active 976276508 Problem Chronic obstructive pulmonary disease, unspecified J44.9 Active 59915923 Problem 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 Active 00676299 Problem GERD (gastroesophageal reflux disease) K21.9 Active 729166328 Problem Paroxysmal atrial fibrillation I48.0 Active 640329446 Problem History of stroke Z86.73 Active 431854961 Problem Anticoagulant long-term use Z79.01 Active 766339630 Problem 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 Active 676472195 Problem S/P CABG x 5 Z95.1 Active 860401968 Problem Depression F32.9 Active 79096193 Problem Prediabetes R73.03 Active 804263011 ALLERGIES No Information SOCIAL HISTORY Never Assessed PLAN OF CARE VITAL SIGNS MEDICATIONS Medication Instructions Dosage Frequency Start Date End Date Duration Status Amlodipine Besylate 5 MG Orally Once a day 1 tablet 24h Active Pantoprazole Sodium 40 mg Orally Once a day 1 tablet 24h Jun, 30 day(s) Active Duloxetine HCl 60 mg Orally Once a day 1 capsule ( 30mg cap) 24h 17 Aug, 2016 90 days Active Symbicort Active Nitrostat 0.4 MG Sublingual q5 min max 3 doses in 15 min as needed for angina 1 tablet Active Tylenol Active Isosorbide Mononitrate CR 60 MG TAKE 1 TABLET BY MOUTH ONCE DAILY Active Promethazine HCl 50 mg Orally every 6 hrs 0.5 tablet as needed for nausea 6h Jun, Active Xarelto 20 MG Orally Once a day 1 tablet with food 24h 30 Active Zetia 10 MG Orally Once a day 1 tablet 24h Active Praluent 150 MG/ML Subcutaneous every 2 weeks 1 ml Active Baclofen 20 TAKE 1 TABLET BY MOUTH THREE TIMES DAILY WITH FOOD OR MILK 30 Active Meclizine HCl 25 Orally 4 times a day 1 tablet as needed 6h 30 days Active Duloxetine HCl 60 MG Orally Once a day 2 capsules 24h 30 days Active Ventolin HFA 108 (90 Base) MCG/ACT Inhalation every 6 hrs 2 puffs as needed 6h Active Trazodone HCl 50 MG Orally Once a day 1 - 2 tablet at bedtime as needed 24h Active Pradaxa Active Ranexa 1000 MG Orally Twice a day 1 tablet 12h Active Atorvastatin Calcium 80 MG Orally Once a day 1 tablet 24h 90 days Active Plavix 75 MG Orally Once a day 1 tablet 24h Active Metoprolol Succinate ER 50 MG Orally 2 times a day 1 tablet 12h Active Effient 10 MG Orally Once a day 1 tablet 24h Active Pantoprazole Sodium 40 mg Orally Once a day 1 tablet 24h 30 Active RESULTS No Results PROCEDURES No Known [...]
--- OUTSIDE RECORDS SUMMARY | 2017-07-03 18:34 | XMS REPORT ---
Author Author ALTA KENNEDY [facility] Address [address] [place] [address] Care Team Providers Care Exercise Science Instructor Name Role Phone ALTA KENNEDY Unavailable PROBLEMS Type Condition ICD9-CM Code [id number] Code Onset Dates Condition Status SNOMED Code Problem Vertigo R42 Active 025011818 Problem Post traumatic stress disorder (PTSD) F43.10 Active 11735137 Problem Generalized anxiety disorder F41.1 Active 49326706 Problem Hepatic steatosis K76.0 Active 027170640 Problem Sciatica, unspecified side M54.30 Active 84043758 Problem Diarrhea, unspecified type R19.7 Active 32606391 Problem Essential hypertension I10 Active 20088003 Problem Anemia D64.9 Active 896324658 Problem Intractable migraine without aura and with status migrainosus G43.011 Active 076052029 Problem Panic attack F41.0 Active 816759029 Problem Other elevated white blood cell count D72.828 Active 863608527 Problem Sciatica of left side M54.32 Active 75962446 Problem Hyperlipidemia, unspecified E78.5 Active 35378492 Problem Hyperplastic colonic polyp, unspecified part of colon K63.5 Active 871331244 Problem Chronic obstructive pulmonary disease, unspecified J44.9 Active 67414807 Problem 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 Active 02549365 Problem GERD (gastroesophageal reflux disease) K21.9 Active 913165867 Problem Paroxysmal atrial fibrillation I48.0 Active 550394163 Problem History of stroke Z86.73 Active 403783370 Problem Anticoagulant long-term use Z79.01 Active 770900725 Problem 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 Active 169789753 Problem S/P CABG x 5 Z95.1 Active 742690552 Problem Depression F32.9 Active 25054222 Problem Prediabetes R73.03 Active 030571214 ALLERGIES No Information SOCIAL HISTORY Never Assessed PLAN OF CARE VITAL SIGNS MEDICATIONS Unknown Medications RESULTS Name Result Date Reference Range LIPID PANEL 2016-10-18 Cholesterol, Total 251 100-199 Triglycerides 358 0-149 HDL Cholesterol 22 >39 VLDL Cholesterol Rodrigo 72 5-40 LDL Cholesterol Calc 157 0-99 Comment: PROCEDURES Procedure Date Ordered Result Body [facility] October 18, 2016 VENIPUNCT, ROUTINE* October 18, 2016 IMMUNIZATIONS No Known Immunizations MEDICAL (GENERAL) HISTORY [...]
--- OUTSIDE RECORDS SUMMARY | 2017-07-03 18:35 | XMS REPORT ---
Author Author TAMIKO WEISS [facility] Address Unknown Care Team Providers Care Surgical Instrument Maker Name Role Phone TAMIKO WEISS Unavailable PROBLEMS Type Condition ICD9-CM Code [id number] Code Onset Dates Condition Status SNOMED Code Problem GERD (gastroesophageal reflux disease) K21.9 Active 234030754 Problem Prediabetes R73.03 Active 604226512 Problem Vertigo R42 Active 989557130 Problem Other elevated white blood cell count D72.828 Active 281329913 Problem Hyperlipidemia, unspecified E78.5 Active 84316708 Problem Sciatica of left side M54.32 Active 76601645 Problem Anemia D64.9 Active 356532346 Problem Hyperplastic colonic polyp, unspecified part of colon K63.5 Active 498005291 Problem Post traumatic stress disorder (PTSD) F43.10 Active 31821552 Problem Panic attack F41.0 Active 843150032 Problem Intractable migraine without aura and with status migrainosus G43.011 Active 101133058 Problem Generalized anxiety disorder F41.1 Active 33718225 Problem S/P CABG x 5 Z95.1 Active 263151511 Problem Sciatica, unspecified side M54.30 Active 17642279 Problem Essential hypertension I10 Active 38878118 Problem Chronic obstructive pulmonary disease, unspecified J44.9 Active 03116189 Problem Depression F32.9 Active 05337298 Problem Anticoagulant long-term use Z79.01 Active 422392066 Problem History of stroke Z86.73 Active 994293144 Problem 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 Active 642295716 Problem 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 Active 47363626 Problem Paroxysmal atrial fibrillation I48.0 Active 709972785 ALLERGIES Substance Reaction Event Type Date Status Vicodin Unknown Drug Allergy Jul, Active PredniSONE Unknown Drug Allergy Jul, Active SOCIAL HISTORY No smoking Hx information available PLAN OF CARE Activity Details Follow Up prn Reason:multi TE VITAL SIGNS Height 73 in 2016-07-06 Blood pressure systolic 142 mmHg 2016-07-06 Blood pressure diastolic 78 mmHg 2016-07-06 MEDICATIONS Medication Instructions Dosage Frequency Start Date End Date Duration Status Metoprolol Succinate ER 50 MG Orally 2 times a day 1 tablet 12h Active Paroxetine HCl Active Tylenol Active Atorvastatin Calcium 80 MG Orally Once a day 1 tablet 24h 90 Active Xarelto 20 MG Orally Once a day 1 tablet with food 24h 30 Active Symbicort Active Amoxicillin 500 MG Orally 1 hour prior to visit 4 Jul, 3 Jul, 2016 1 days Active Amlodipine Besylate 5 MG Orally Once a day 1 tablet 24h Active Ranexa 1000 MG Orally Twice a day 1 tablet 12h Active Pradaxa Active Baclofen 20 TAKE 1 TABLET BY MOUTH THREE TIMES DAILY WITH FOOD OR MILK 30 Active Isosorbide Mononitrate CR 60 MG TAKE 1 TABLET BY MOUTH ONCE DAILY Active RESULTS No Results PROCEDURES Procedure Date Ordered Related Diagnosis Body Site Dental no charge Jul 06, 2016 IMMUNIZATIONS No Known Immunizations
--- OUTSIDE RECORDS SUMMARY | 2017-07-03 18:35 | XMS REPORT ---
Author Author ROJAS JUNIOR [facility] Address [address] [place] [address] Care Team Providers Care Licensed Real Estate Broker Name Role Phone ROJASLYRIC COLMENARESHANY Unavailable PROBLEMS Type Condition ICD9-CM Code ONN62-NB Code Onset Dates Condition Status SNOMED Code Problem History of stroke Z86.73 Active 257093223 Problem S/P CABG x 5 Z95.1 Active 033703888 Problem Anemia D64.9 Active 643444103 Problem Post traumatic stress disorder (PTSD) F43.10 Active 52078627 Problem Essential hypertension I10 Active 80616059 Problem Panic attack F41.0 Active 417713212 Problem Sciatica, unspecified side M54.30 Active 47271197 Problem Generalized anxiety disorder F41.1 Active 96429409 Problem Sciatica of left side M54.32 Active 25156565 Problem Intractable migraine without aura and with status migrainosus G43.011 Active 825018739 Problem Cannabis abuse F12.10 Active 15748819 Problem 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 Active 08612647 Problem Hyperlipidemia, unspecified E78.5 Active 58227139 Problem 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 Active 32265976 Problem Chronic obstructive pulmonary disease, unspecified J44.9 Active 82627528 Problem Hepatic steatosis K76.0 Active 224908190 Problem Other elevated white blood cell count D72.828 Active 247821355 Problem Mixed obsessional thoughts and acts F42.2 Active 97652262 Problem Diarrhea, unspecified type R19.7 Active 01177618 Problem Depression F32.9 Active 22366260 Problem GERD (gastroesophageal reflux disease) K21.9 Active 172153784 Problem Hyperplastic colonic polyp, unspecified part of colon K63.5 Active 948002218 Problem Anticoagulant long-term use Z79.01 Active 161683567 Problem Prediabetes R73.03 Active 234474057 Problem Vertigo R42 Active 962098052 Problem Paroxysmal atrial fibrillation I48.0 Active 967922078 Problem 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 Active 737264724 ALLERGIES No Information SOCIAL HISTORY Never Assessed PLAN OF CARE VITAL SIGNS MEDICATIONS Unknown Medications RESULTS No Results PROCEDURES No Known procedures IMMUNIZATIONS No Known Immunizations MEDICAL (GENERAL) HISTORY Type Description Date Medical History 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
--- OUTSIDE RECORDS SUMMARY | 2017-07-03 18:36 | XMS REPORT ---
Author Author KiaraKHOA [facility] Address [address] [place] [address] Care Team Providers Care Oval Or Circular Glass Cutter Name Role Phone KHOA Craig Unavailable PROBLEMS Type Condition ICD9-CM Code [id number] Code Onset Dates Condition Status SNOMED Code Problem Vertigo R42 Active 536630889 Problem Post traumatic stress disorder (PTSD) F43.10 Active 45780474 Problem Generalized anxiety disorder F41.1 Active 40983660 Problem Hepatic steatosis K76.0 Active 263574027 Problem Sciatica, unspecified side M54.30 Active 08305007 Problem Diarrhea, unspecified type R19.7 Active 61438887 Problem Essential hypertension I10 Active 30911358 Problem Anemia D64.9 Active 646789596 Problem Intractable migraine without aura and with status migrainosus G43.011 Active 903155633 Problem Panic attack F41.0 Active 110790459 Problem Other elevated white blood cell count D72.828 Active 374464941 Problem Sciatica of left side M54.32 Active 52476252 Problem Hyperlipidemia, unspecified E78.5 Active 14830567 Problem Hyperplastic colonic polyp, unspecified part of colon K63.5 Active 244621125 Problem Chronic obstructive pulmonary disease, unspecified J44.9 Active 21299826 Problem 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 Active 19465474 Problem GERD (gastroesophageal reflux disease) K21.9 Active 451139715 Problem Paroxysmal atrial fibrillation I48.0 Active 375441615 Problem History of stroke Z86.73 Active 407871142 Problem Anticoagulant long-term use Z79.01 Active 815087550 Problem 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 Active 329376405 Problem S/P CABG x 5 Z95.1 Active 946924277 Problem Depression F32.9 Active 61606769 Problem Prediabetes R73.03 Active 134583468 ALLERGIES Substance Reaction Event Type Date Status Vicodin Unknown Drug Allergy Oct, Active PredniSONE Unknown Drug Allergy Oct, Active SOCIAL HISTORY Never Assessed PLAN OF CARE Activity Details Follow Up 6 Weeks Reason: VITAL SIGNS Height 73 in 2016-10-18 Weight 297.0 lbs 2016-10-18 Heart Rate 108 bpm 2016-10-18 Respiratory Rate 20 2016-10-18 BMI 39.18 kg/m2 2016-10-18 Blood pressure systolic 121 mmHg 2016-10-18 Blood pressure diastolic 74 mmHg 2016-10-18 MEDICATIONS Medication Instructions Dosage Frequency Start Date End Date Duration Status Ventolin HFA 108 (90 Base) MCG/ACT Inhalation every 6 hrs 2 puffs as needed 6h Active Pantoprazole Sodium 40 mg Orally Once a day 1 tablet 24h Jun, 30 day(s) Active Isosorbide Mononitrate CR 60 MG TAKE 1 TABLET BY MOUTH ONCE DAILY Active Amlodipine Besylate 5 MG Orally Once a day 1 tablet 24h Active Effient 10 MG Orally Once a day 1 tablet 24h Active Nitrostat 0.4 MG Sublingual q5 min max 3 doses in 15 min as needed for angina 1 tablet Active Baclofen 20 TAKE 1 TABLET BY MOUTH THREE TIMES DAILY WITH FOOD OR MILK 30 Active Zetia 10 MG Orally Once a day 1 tablet 24h Active Tylenol Active Xarelto 20 MG Orally Once a day 1 tablet with food 24h 30 Active Pradaxa Active Trazodone HCl 50 MG Orally Once a day 1 - 2 tablet at bedtime as needed 24h Active Duloxetine HCl 60 mg Orally Once a day 1 capsule ( 30mg cap) 24h 17 Aug, 2016 90 days Active Metoprolol Succinate ER 50 MG Orally 2 times a day 1 tablet 12h Active Meclizine HCl 25 Orally 4 times a day 1 tablet as needed 6h 30 days Active Symbicort Active Ranexa 1000 MG Orally Twice a day 1 tablet 12h Active Duloxetine HCl 60 MG Orally Once a day 2 capsules 24h 30 days Active Plavix 75 MG Orally Once a day 1 tablet 24h Active Promethazine HCl 50 mg Orally every 6 hrs 0.5 tablet as needed for nausea 6h Jun, Active Atorvastatin Calcium 80 MG Orally Once a day 1 tablet 24h 90 days Active RESULTS No Results PROCEDURES Procedure Date Ordered Result Body Site [facility] VISIT ESTABLISHED PATIENT October 18, 2016 IMMUNIZATIONS No Known Immunizations [...]
[2017-07-03 18:39] VITALS: BP 124/76
--- NOTE | 2017-07-03 18:49 | ED Psychosocial ---
General Chief Complaint: Psych/Social Disorder Stated Complaint: SUICIDAL Nursing Triage Note: PT REPORTS SUICIDAL IDEATION FOR 24 HOURS. STATES SHE HAS TAKEN CONTROL OF ALL OF PTS HOME MEDS AND REMOVED WEAPONS FROM HOME. SHE STATES HE HAS AN EMERGENCY APPT WITH HIS PSYCHIATRIST TOMORROW MORNING. Source: patient, other (FEMALE S.O./ GIRLFIREND OF 16 YEARS) History of Present Illness Time seen by provider: 18:35 Initial Comments PT ARRIVES VIA POV FROM HOME WITH /FEMALE S.O. PT STATES HE HAS BEEN SUICIDAL "OFF AND ON ALL MY LIFE" BUT HAS BEEN WORSE THE LAST 24 HOURS PT STATES "IF I HAD THE GUTS, I WOULDN'T BE HERE" PT STATES HE "HAS ENOUGH PILLS TO DO IT" AND HAS THOUGHT ABOUT CUTTING HIS WRISTS, BUT WAS AFRAID TO GO THROUGH WITH IT PT STATES HE TOOK UNKNOWN NUMBER OF HYDROCODONE ( 25-30, IN ALL, HE THINKS) TOOK SOME ON 06/27, AGAIN THE NEXT DAY, "AND MAYBE THE NEXT DAY--I' M NOT SURE" HAS NOT TAKEN ANY OF HIS MEDICATIONS TODAY PT STATES "I GOT ALL THESE MENTAL AND PHYSICAL PROBLEMS" STATES " I HAVE ALOT OF TROUBLE DEALING WITH MYSELF AND WITH WHAT I AM AND WHO I AM" STATES YESTERDAY HE TRIED TO STEAL SOMETHING FROM HIS S.O.'S FAMILY MEMBER, AND NOW HE FEELS BAD ABOUT IT. PT HAS AN APPOINTMENT AT 0840 TOMORROW MORNING AT [facility]--S.O. CALLED JUST PRIOR TO ARRIVAL S.O. STATES SHE HAS TAKEN CONTROL OF ALL OF HIS MEDICATIONS AND REMOVED ALL WEAPONS FROM THE HOUSE. PT HAS BEEN ON DULOXETINE AND TRAZADONE FOR QUITE SOME TIME, AND WAS DOING BETTER, UNTIL THE LAST MONTH OR TWO WAS STARTED ON BUPROPRION A MONTH AGO FOR OCD AND DOSE INCREASED 7-10 DAYS AGO. THOSE SYMPTOMS SEEM TO BE BETTER. PCP: [facility]-DR. ROJAS HI PSYCH: [facility] Allergies and Home Medications Allergies Coded Allergies: prednisone (Verified Allergy, Intermediate, RASH, 04/23/15) hydrocodone (Verified Allergy, Unknown, 04/23/15) venom-honey bee (Verified Allergy, Unknown, 04/23/15) Home Medications Albuterol Sulfate Unknown Strength Hfa.aer.ad, 2 PUFF IH for SHORTNESS OF BREATH , (Reported) Amlodipine Besylate 5 Mg Tablet, 5 MG PO DAILY, #30 Ref 4 Prescribed by: JAMEEL PIMENTEL on 04/27/15 1038 Atorvastatin Calcium 80 Mg Tablet, 80 MG PO DAILY, (Reported) Baclofen 20 Mg Tablet, 20 MG PO TID PRN for SPASMS, (Reported) Clopidogrel Bisulfate 75 Mg Tablet, 75 MG PO DAILY, #30 Ref 11 Prescribed by: JOSE GUADALUPE SCHNEIDER on 02/29/16 1300 Dicyclomine HCl 20 Mg Tablet, 20 MG PO ACHS PRN for ABDOMINAL PAIN, #60 Ref 0 Prescribed by: SHA HOLDER on 02/01/172032 Duloxetine HCl 30 Mg Capsule.dr, 60 MG PO DAILY, (Reported) Duloxetine HCl 60 Mg Capsule.dr, 60 MG PO DAILY, (Reported) Ezetimibe 10 Mg Tablet, 10 MG PO DAILY, (Reported) Isosorbide Mononitrate 60 Mg Tab, 60 MG PO DAILY@0630, #30 Ref 11 Prescribed by: JOSE GUADALUPE SCHNEIDER on 02/29/16 1300 Meclizine HCl 25 Mg Tablet, 25 MG PO QID PRN for DIZZINESS, (Reported) Metoprolol Succinate 50 Mg Tab.er.24h, 50 MG PO Q12H, (Reported) Nitroglycerin 0.4 Mg Tab.subl, 0.4 MG SL for CHEST PAIN, (Reported) Prasugrel HCl 10 Mg Tablet, 10 MG PO DAILY, (Reported) Rivaroxaban 20 Mg Tablet, 20 MG PO DAILY, (Reported) Constitutional: no symptoms reported EENTM: no symptoms reported Respiratory: no symptoms reported Cardiovascular: no symptoms reported Gastrointestinal: no symptoms reported Genitourinary: no symptoms reported Musculoskeletal: no symptoms reported Skin: no symptoms reported Psychiatric/Neurological: See HPI, Depressed Past Eiiipph-Eyqihi-Ijjxhg Hx Patient Social History Alcohol Use: Rarely Uses Number of Drinks Today: AA Alcohol Beverage of Choice: Beer Recreational Drug Use: Yes Drug of Choice: MARIJUANA Smoking Status: Former Smoker Type Used: Cigarettes Former Smoker, Quit: Feb 07, 2000 2nd Hand Smoke Exposure: No Recent Foreign Travel: No Contact w/Someone Who Travel: No Recent Infectious Disease Expo: No Recent Hopitalizations: No Physical Abuse: No Sexual Abuse: No Immunizations Up To Date Tetanus Booster (TDap): Unknown PED Vaccines UTD: No Seasonal Allergies Seasonal Allergies: Yes Surgeries History of Surgeries: Yes (ULNAR DECOMPRESSION; CYST REMOVAL; CARDIAC CATHS- STENTS X 6, 5-VESSEL CABG, EGD/COLONOSCOPY) Surgeries: Cardiac, CABG, Coronary Stent, Orthopedic Respiratory History of Respiratory Disorde: Yes Respiratory Disorders: Chronic Bronchitis, Sleep Apnea, COPD Currently Using CPAP: No Currently Using BIPAP: No Cardiovascular History of Cardiac Disorders: Yes (A FLUTTER; 5-VESSEL CABG, MULTIPLE CATHS/ ANGIOPLASTIES/STENTS X 6) Cardiac Disorders: Atrial Fibrillation, Coronary Artery Disease, High Cholesterol, Hypertension, Peripheral Vascular Neurological History of Neurological Disord: Yes (CVA--CEREBELLAR WITH SOME PROBLEMS WITH BALANCE AND SHORT TERM MEMORY ) Neurological Disorders: Stroke, TIA Reproductive System Hx Reproductive Disorders: No Sexually Transmitted Disease: No HIV/AIDS: No Genitourinary History of Genitourinary Disor: No Gastrointestinal History of Gastrointestinal Di: Yes Gastrointestinal Disorders: Gastroesophageal Reflux, Chronic Diarrhea, Ulcer Musculoskeletal History of Musculoskeletal Dis: Yes Musculoskeletal Disorders: Chronic Back Pain, Spasms Endocrine History of Endocrine Disorders: Yes (Borderline DM) Endocrine Disorders: Diabetes, Non-Insulin dep HEENT History of HEENT Disorders: Yes HEENT Disorders: Eye Injury, Double Vision Loss of Vision: Right Hearing Impairment: Denies Cancer History of Cancer: No Psychosocial History of Psychiatric Problem: Yes (OCD) Behavioral Health Disorders: Sleep Difficulties, Anxiety, Depression Suicide Risk Score: 0 Suicide Risk Notes: REMAINS AT BEDSIDE. Integumentary History of Skin or Integumenta: No Blood Transfusions History of Blood Disorders: Yes (B12 deficiency anemia) Adverse Reaction to a Blood Tr: No (N/A) Family Medical History Significant Family History: Heart Disease, Cancer, Diabetes Family Medial History: Brain cancer 19 FATHER Congestive heart failure 19 MOTHER Coronary artery disease 19 FATHER Diabetes mellitus 19 MOTHER Heart attack 19 FATHER 19 MOTHER Hypertension 19 FATHER 19 MOTHER Lung cancer 19 FATHER Physical Exam Vital Signs Vital Sign - Last 12Hours 07/03/17 18:39 Temp 97.1 Pulse 85 Resp 16 B/P (MAP) 124/76 Pulse Ox 98 O2 Delivery Room Air Capillary Refill : Less Than 3 Seconds General Appearance: no apparent distress, obese, other (FLAT AFFECT, KEEPS HEAD DOWN, DOES NOT MAKE EYE CONTACT) HEENT: PERRL/EOMI, normal ENT inspection Neck: normal inspection Respiratory: normal breath sounds, no respiratory distress, no accessory muscle use Cardiovascular: regular rate, rhythm, no edema, no JVD, no murmur Gastrointestinal: normal bowel sounds, non tender, soft Extremities: normal inspection, no pedal edema, no calf tenderness, normal capillary refill Neurologic/Psychiatric: mental health specialist II-XII nml as tested, no motor/sensory deficits, alert, oriented x 3, depressed affect Appearance/Memory: appropriate insight, no memory impairment Behavior/Eye Contact: cooperative, normal speech, avoids eye contact Thoughts/Hallucinations: no apparent hallucination Skin: normal color, warm/dry Progress/Results/Core Measures Results/Orders Lab Results Laboratory Tests Test 07/03/17 19:00 07/03/17 19:15 Range/Units Urine Color YELLOW Urine Clarity CLEAR Urine pH 5 5-9 Urine Specific [place] 1.015 L 1.016-1.022 Urine Protein NEGATIVE NEGATIVE Urine Glucose (UA) NEGATIVE NEGATIVE Urine Ketones NEGATIVE NEGATIVE Urine Nitrite NEGATIVE NEGATIVE Urine Bilirubin NEGATIVE NEGATIVE Urine Urobilinogen NORMAL NORMAL MG/DL Urine Leukocyte Esterase NEGATIVE NEGATIVE Urine RBC (Auto) NEGATIVE NEGATIVE Urine RBC NONE /HPF Urine WBC 0-2 /HPF Urine Squamous Epithelial Cells RARE /HPF Urine Crystals NONE /LPF Urine Bacteria NEGATIVE /HPF Urine Casts NONE /LPF Urine Mucus SMALL H /LPF Urine Culture Indicated NO Urine Opiates Screen NEGATIVE NEGATIVE Urine Oxycodone Screen NEGATIVE NEGATIVE Urine Methadone Screen NEGATIVE NEGATIVE Urine Propoxyphene Screen NEGATIVE NEGATIVE Urine Barbiturates Screen NEGATIVE NEGATIVE Ur Tricyclic Antidepressants Screen NEGATIVE NEGATIVE Urine Phencyclidine Screen NEGATIVE NEGATIVE Urine Amphetamines Screen NEGATIVE NEGATIVE Urine Methamphetamines Screen NEGATIVE NEGATIVE Urine Benzodiazepines Screen NEGATIVE NEGATIVE Urine Cocaine Screen NEGATIVE NEGATIVE Urine Cannabinoids Screen POSITIVE H NEGATIVE White Blood Count 11.6 H 4.3-11.0 10^3/uL Red Blood Count 4.91 4.35-5.85 10^6/uL Hemoglobin 14.4 13.3-17.7 G/DL Hematocrit 40 40-54 % Mean Corpuscular Volume 82 80-99 FL Mean Corpuscular Hemoglobin 29 25-34 PG Mean Corpuscular Hemoglobin Concent 36 32-36 G/DL Red Cell Distribution Width 13.0 10.0-14.5 % Platelet Count 277 130-400 10^3/uL Mean Platelet Volume 9.7 7.4-10.4 FL Neutrophils (%) (Auto) 61 42-75 % Lymphocytes (%) (Auto) 31 12-44 % Monocytes (%) (Auto) 7 0-12 % Eosinophils (%) (Auto) 2 0-10 % Basophils (%) (Auto) 0 0-10 % Neutrophils # (Auto) 7.1 1.8-7.8 X 10^3 Lymphocytes # (Auto) 3.6 1.0-4.0 X 10^3 Monocytes # (Auto) 0.8 0.0-1.0 X 10^3 Eosinophils # (Auto) 0.2 0.0-0.3 10^3/uL Basophils # (Auto) 0.0 0.0-0.1 10^3/uL Sodium Level 138 135-145 MMOL/L Potassium Level 3.7 3.6-5.0 MMOL/L Chloride Level 101 98-107 MMOL/L Carbon Dioxide Level 26 21-32 MMOL/L Anion Gap 11 5-14 MMOL/L Blood Urea Nitrogen 10 7-18 MG/DL Creatinine 0.93 0.60-1.30 MG/DL Estimat Glomerular Filtration Rate > 60 BUN/Creatinine Ratio 11 Glucose Level 122 H 70-105 MG/DL Calcium Level 9.5 8.5-10.1 MG/DL Total Bilirubin 0.8 0.1-1.0 MG/DL Aspartate Amino Transf (AST/SGOT) 14 5-34 U/L Alanine Aminotransferase (ALT/SGPT) 19 0-55 U/L Alkaline Phosphatase 89 40-136 U/L Total Protein 8.0 6.4-8.2 GM/DL Albumin 4.3 3.2-4.5 GM/DL TSH [place] Testing 1.31 0.35-4.94 UIU/ML Salicylates Level < 5.0 L 5.0-20.0 MG/DL Acetaminophen Level < 10 L 10-30 UG/ML Serum Alcohol < 10 <10 MG/DL My Orders Orders - KATHY JOHNSON DO Ua Culture If Indicated (07/03/17 18:47) Thyroid Analyzer (07/03/17 18:47) Drug Screen Stat (Urine) (07/03/17 18:47) Cbc With Automated Diff (07/03/17 18:47) Comprehensive Metabolic Panel (07/03/17 18:47) Alcohol (07/03/17 18:47) Acetaminophen (07/03/17 18:47) Salicylate (07/03/17 18:47) Ekg Tracing (07/03/17 18:47) Vital Signs/I&O Vital Sign - Last 12Hours 07/03/17 18:39 Temp 97.1 Pulse 85 Resp 16 B/P (MAP) 124/76 Pulse Ox 98 O2 Delivery Room Air Blood Pressure Mean: 92 Progress Note : Progress Note PT DECLINES MENTAL HEALTH SCREEN , AND DECLINES ANY INPATIENT TREATMENT-- OFFERED PT BOTH, AND HE DECLINES. PT FEELS COMFORTABLE GOING HOME, DOES HIS FEMALE S.O. PT STATES "I'M NOT GONNA DO ANYTHING -I'M TO SCARED TO" "AND BESIDES I HAVE AN APPOINTMENT IN THE MORNING" PT MAKING EYE CONTACT AND AND SEEMS MORE WILLING TO TALK PRIOR TO DISMISSAL, APPEARS LESS FLAT/LESS DEPRESSED AT DISMISSAL. ECG Initial ECG Impression Time: 18:58 Initial ECG Rate: 85 Initial ECG Rhythm: Normal Sinus Initial ECG Impression: Nonspecific Changes Initial ECG Comparisson: Unchanged Departure Impression Impression: Primary Impression: MAJOR DEPRESSION WITH SUICIDAL IDEATION Additional Impression: Marijuana use Disposition: 01 HOME, SELF-CARE Condition: Stable Departure-Patient Inst. Referrals: JUNIOR XIE MD (PCP/Family) Primary Care Physician Patient Instructions: Depression, Adult (DC), SUICIDE CONTRACT, Suicide Prevention Add. Discharge Instructions: TAKE YOUR MEDICATIONS EXACTLY PRESCRIBED KEEP YOUR APPOINTMENT WITH MENTAL HEALTH IN THE MORNING CALL [id number] IF YOUR SYMPTOMS WORSEN, AND RETURN TO ER IF SYMPTOMS WORSEN All discharge instructions reviewed with patient and/or family. Voiced understanding. KATHY JOHNSON DO Jul 03, 2017 18:49
[2017-07-03 19:17] LABS: BILIRUBIN,URINE NEGATIVE (NEGATIVE); KETONES,URINE NEGATIVE (NEGATIVE); LEUKOCYTE ESTERASE ,URINE NEGATIVE (NEGATIVE); NITRITE,URINE NEGATIVE (NEGATIVE); PH,URINE 5 (5-9); PROTEIN,URINE NEGATIVE (NEGATIVE); UROBILINOGEN,URINE NORMAL (NORMAL)
[2017-07-03 19:27] LABS: BASOPHILS % (AUTO) 0 % (0-10); EOSINOPHILS # (AUTO) 0.2 10^3/uL (0.0-0.3); EOSINOPHILS % (AUTO) 2 % (0-10); LYMPHOCYTES # (AUTO) 3.6 X 10^3 (1.0-4.0); LYMPHOCYTES % (AUTO) 31 % (12-44); MEAN CORPUSCULAR HEMOGLOBIN 29 PG (25-34); MEAN CORPUSCULAR HGB CONC 36 G/DL (32-36); MEAN CORPUSCULAR VOLUME 82 FL (80-99); MEAN PLATELET VOLUME 9.7 FL (7.4-10.4); MONOCYTES # (AUTO) 0.8 X 10^3 (0.0-1.0); MONOCYTES % (AUTO) 7 % (0-12); NEUTROPHILS # (AUTO) 7.1 X 10^3 (1.8-7.8); NEUTROPHILS % (AUTO) 61 % (42-75); PLATELET COUNT 277 10^3/uL (130-400); RED BLOOD COUNT 4.91 10^6/uL (4.35-5.85); WHITE BLOOD COUNT 11.6 10^3/uL (4.3-11.0)
[2017-07-03 19:34] LABS: SQUAMOUS EPITHELIAL CELL,UR RARE /HPF; WBC,URINE 0-2 /HPF
[2017-07-03 19:49] LABS: ALANINE AMINOTRANSFERASE 19 U/L (0-55); ALBUMIN 4.3 GM/DL (3.2-4.5); ALCOHOL < 10 MG/DL (<10); ANION GAP 11 MMOL/L (5-14); ASPARTATE AMINO TRANSFERASE 14 U/L (5-34); BILIRUBIN,TOTAL 0.8 MG/DL (0.1-1.0); BLOOD UREA NITROGEN 10 MG/DL (7-18); BUN/CREATININE RATIO 11; CALCIUM 9.5 MG/DL (8.5-10.1); CARBON DIOXIDE 26 MMOL/L (21-32); CHLORIDE 101 MMOL/L (98-107); CREATININE SERUM 0.93 MG/DL (0.60-1.30); GFR ESTIMATED > 60; GLUCOSE 122 MG/DL (70-105); POTASSIUM 3.7 MMOL/L (3.6-5.0); SALICYLATE < 5.0 MG/DL (5.0-20.0); SODIUM 138 MMOL/L (135-145)
[2017-07-03 20:14] LABS: ACETAMINOPHEN < 10 UG/ML (10-30)
== END 2017-07-03 20:34 | disposition home or self-care (01) ==
LOC: EDUNIT# 18:25 → ER 18:26
DX: R45.851 Suicidal ideations (principal); F32.9 Major depressive disorder, single episode, unspecified; J44.9 Chronic obstructive pulmonary disease, unspecified; G47.30 Sleep apnea, unspecified; I48.91 Unspecified atrial fibrillation; I25.10 Atherosclerotic heart disease of native coronary artery without angina pectoris; E78.00 Pure hypercholesterolemia, unspecified; I10 Essential (primary) hypertension; I73.9 Peripheral vascular disease, unspecified; K21.9 Gastro-esophageal reflux disease without esophagitis; E11.9 Type 2 diabetes mellitus without complications; F41.9 Anxiety disorder, unspecified; F12.10 Cannabis abuse, uncomplicated; Z87.891 Personal history of nicotine dependence; Z86.73 Personal history of transient ischemic attack (TIA), and cerebral infarction without residual deficits; Z80.1 Family history of malignant neoplasm of trachea, bronchus and lung; Z87.19 Personal history of other diseases of the digestive system; Z82.49 Family history of ischemic heart disease and other diseases of the circulatory system; Z95.5 Presence of coronary angioplasty implant and graft; Z95.1 Presence of aortocoronary bypass graft
CPT/HCPCS: 36415; 80053; 80306; 80320; 80329; 81000; 84443; 85025; 93005

== ENCOUNTER 2018-02-06 11:05 | Day surgery (SDC) | payer MEDICARE, MEDICAID ==
[~2018-02-06] VITALS: Ht 185.4 cm; Wt 122.5 kg
[2018-02-06] VITALS (17 sets, daily range): BP systolic 119–182; BP diastolic 73–103
--- OUTSIDE RECORDS SUMMARY | 2018-02-06 11:09 | XMS REPORT ---
Author Author HALLE SCHNEIDER Organization [facility] Address [address] [place] [address] Care Team Providers Care X Ray Technologist Name Role Phone HALLE SCHNEIDER Unavailable PROBLEMS Type Condition ICD9-CM Code GMG98-NC Code Onset Dates Condition Status SNOMED Code Problem History of stroke Z86.73 Active 642443575 Problem S/P CABG x 5 Z95.1 Active 785156758 Problem Anemia D64.9 Active 804684346 Problem Post traumatic stress disorder (PTSD) F43.10 Active 97427085 Problem Essential hypertension I10 Active 54453916 Problem Panic attack F41.0 Active 339692120 Problem Sciatica, unspecified side M54.30 Active 25144711 Problem Generalized anxiety disorder F41.1 Active 06772260 Problem Sciatica of left side M54.32 Active 13096487 Problem Intractable migraine without aura and with status migrainosus G43.011 Active 583431062 Problem Cannabis abuse F12.10 Active 70676780 Problem 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 Active 83940370 Problem Hyperlipidemia, unspecified E78.5 Active 34910728 Problem 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 Active 37724495 Problem Chronic obstructive pulmonary disease, unspecified J44.9 Active 91805098 Problem Hepatic steatosis K76.0 Active 524902688 Problem Other elevated white blood cell count D72.828 Active 287079032 Problem Mixed obsessional thoughts and acts F42.2 Active 43223292 Problem Diarrhea, unspecified type R19.7 Active 49571412 Problem Depression F32.9 Active 53103794 Problem GERD (gastroesophageal reflux disease) K21.9 Active 697649195 Problem Hyperplastic colonic polyp, unspecified part of colon K63.5 Active 978712823 Problem Anticoagulant long-term use Z79.01 Active 886604052 Problem Prediabetes R73.03 Active 115228221 Problem Vertigo R42 Active 578920215 Problem Paroxysmal atrial fibrillation I48.0 Active 395805421 Problem Coronary artery disease of bypass graft of [place] heart with stable 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 Active 452152358 ALLERGIES No Information ENCOUNTERS Encounter Location Date Diagnosis [place] [id number] [place] [address]1865- 8968 Nov, Chronic combined systolic (congestive) and diastolic ( congestive) heart failure I50.42 ; Chronic obstructive pulmonary disease, unspecified J44.9 ; Essential hypertension I10 ; Hyperlipidemia, unspecified E78.5 ; Anticoagulant long-term use Z79.01 ; Depression F32.9 ; Paroxysmal atrial fibrillation I48.0 and Coronary artery disease of bypass graft of [place] heart with stable 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 [place] [address] [place] [id number] [place] [address] 03806- 7406 Oct, Chronic obstructive pulmonary disease, unspecified J44.9 [place] [address] [address] Sep, 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 ; Mixed obsessional thoughts and acts F42.2 and Cannabis abuse F12.10 [place] [address] [place] [id number] [place] [address] 87252- 1571 Aug, 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 ; Mixed obsessional thoughts and acts F42.2 and Cannabis abuse F12.10 [place] [address] [place] [id number] [place] [address] 20463- 4634 Aug, 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 and Mixed obsessional thoughts and acts F42.2 [place] [address] [place] [id number] [place] [address] 48564- 8668 Jul, 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 and Mixed obsessional thoughts and acts F42.2 [place] [address] [place] [id number] [place] [address] 59108- 4393 Jul, 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 and Mixed obsessional thoughts and acts F42.2 [place] [address] [place] [id number] [place] [address] 81947- 0498 Jul, 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 ; Mixed obsessional thoughts and acts F42.2 and Cannabis abuse F12.10 [place] [address] [place] [id number] [place] [address] 92564- 7687 Jun, 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 ; Mixed obsessional thoughts and acts F42.2 and Cannabis abuse F12.10 [place] [address] [place] [id number] [place] [address] 55367- 3472 Jun, [place] [address] [place] [id number] [place] [address] 25247- 381 Jun, 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 ; Mixed obsessional thoughts and acts F42.2 and Cannabis abuse F12.10 [place] [address] [place] [id number] [place] [address] 34118- 5945 May, 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 ; Mixed obsessional thoughts and acts F42.2 and Cannabis abuse F12.10 [place] [address] [place] [id number] [place] [address] 29141- 2515 May, 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 [place] [address] [place] [id number] [place] [address] 49851- 1923 Mar, [place] [address] [place] [id number] [place] [address] 74438- 4510 Mar, Chronic combined systolic (congestive) and diastolic ( congestive) heart failure I50.42 ; Diarrhea, unspecified type R19.7 ; Hepatic steatosis K76.0 and Generalized postprandial abdominal pain R10.84 [place] [address] [place] [id number] [place] [address] 04807- 4899 Jan, Generalized abdominal pain R10.84 [place] [address] [place] [id number] [place] [address] 15093- 4175 Jan, Generalized abdominal pain R10.84 ; Generalized postprandial abdominal pain R10.84 ; Diarrhea, unspecified type R19.7 ; Non- intractable vomiting with nausea, unspecified vomiting type R11.2 ; GERD ( gastroesophageal reflux disease) K21.9 ; S/P CABG x 5 Z95.1 ; Prominent abdominal aortic pulsation R09.89 and Other elevated white blood cell count D72.828 [place] [id number] [place] [id number] [place] [address] 40289- 7065 Jan, Vertigo R42 [place] [address] 76071- 1782 Jan, Other elevated white blood cell count D72.828 [place] [address] 85141- 9530 Jan, Other elevated white blood cell count D72.828 [place] [address] [place] [id number] [place] [address] 25120- 0198 Jan, Hyperlipidemia, unspecified E78.5 ; Sciatica of left side M54.32 ; Weight loss R63.4 and Night sweats R61 [facility] [address] [place] [id number] [place] [address] [id number] December, Dental caries K02.9 and Dental examination Z01.20 [place] [address] [place] [id number] [place] [address] 42055- 8739 Oct, Vertigo R42 ; Nausea R11.0 ; Chronic obstructive pulmonary disease, unspecified J44.9 ; GERD (gastroesophageal reflux disease) K21.9 ; S/P CABG x 5 Z95.1 ; Hyperlipidemia, unspecified E78.5 ; Essential hypertension I10 ; Paroxysmal atrial fibrillation I48.0 and Depression F32.9 [place] [address] [place] [id number] [place] [address] 88678- 9416 Oct, [place] [address] [place] [id number] [place] [address] 79442- 1379 Oct, Hyperlipidemia, unspecified E78.5 [place] [address] [place] [id number] [place] [address] 22245- 7847 Oct, 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 [facility] [id number] [place] [address] 55853- 3078 15 Oct, 2016 Vertigo R42 [facility] [address] [place] [id number] [place] [address] 36152- 2933 03 Oct, 2016 [facility] [address] [place] [id number] [place] [address] 20453- 9637 Sep, [facility] [address] [place] [id number] [place] [address] 77198- 2131 Aug, 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 [place] [address] [place] [id number] [place] [address] 05333- 9715 05 Jul, 2016 Depression F32.9 ; Generalized anxiety disorder F41.1 and Panic attack F41.0 [facility] [address] [id number] Jul, 2016 Dental examination Z01.20 [facility] [address] [place] [id number] [place] [address] 15138- 1834 30 Jun, 2016 [facility] [address] [place] [id number] [place] [address] 90973- 2257 30 Jun, 2016 Encounter for dental examination and cleaning without abnormal findings Z01.20 [facility] [address] [place] [id number] [place] [address] 61950- 5157 15 Jun, 2016 Intractable migraine without aura and with status migrainosus G43.011 ; Coronary artery disease of bypass graft of [place] heart with stable 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 ; Depression F32.9 and B12 deficiency E53.8 [facility] [address] [place] [id number] [place] [address] 06689- 2168 15 Jun, 2016 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 [facility] [id number] [place] [address] 04293- 6648 14 Jun, 2016 Depression F32.9 ; Generalized anxiety disorder F41.1 ; Post traumatic stress disorder (PTSD) F43.10 and Panic attack F41.0 [place] [id number] [place] [address] 99853- 0780 Jun, [place] [address]606- 8645 Jun, [address] 7[address]73- 5209 May, [address] 52258- 8426 May, Elevated glucose R73.09 ; Depression F32.9 ; Hyperlipidemia , unspecified E78.5 ; Prediabetes R73.03 ; B12 deficiency E53.8 ; Vertigo R42 ; Seborrheic keratosis L82.1 ; Chronic obstructive pulmonary disease, unspecified J44.9 and Blurry vision H53.[address] 84510- 5620 Apr, [address] 27440- 3565 Jan, Elevated glucose R73.09 ; Anemia D64.9 and Weakness generalized R53.1 [place] [id number] [place] [address] 03350- 0025 Jan, [place] [id number] [place] [address] 38165- 5148 Jan, [address] 53496- 2007 December, Sciatica, left side M54.[address] 05181- 3160 Nov, Sciatica, unspecified side M54.30 ; Chronic obstructive pulmonary disease, unspecified J44.9 ; GERD (gastroesophageal reflux disease) K21.9 ; Coronary artery disease of bypass graft of [place] heart with stable 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 and Pre-syncope R55 [place] [id number] [place] [address] 53070- 7589 Sep, [facility] [address] 17885- 6580 Aug, Coumadin toxicity, accidental or unintentional, subsequent encounter T60.4X1D [place] [address] 29682- 6352 Aug, [facility] [address] 29012- 2017 Aug, Coumadin toxicity, accidental or unintentional, subsequent encounter T60.4X1D ; Atherosclerosis of coronary artery bypass graft(s) without angina pectoris I25.810 and History of stroke Z86.73 [facility] [address] [place] [id number] [place] [address] 89818 -1566 Aug, Ear canal abrasion, left, initial encounter S00.412A and Anticoagulant long-term use Z79.01 [place] [address] [place] [id number] [place] [address] 19461- 4222 Jul, [address] 82465- 2080 Jul, Anticoagulant long-term use Z79.01 ; Polyarthralgia M25.50 ; Sciatica, left M54.32 ; Costochondritis M94.0 ; COPD exacerbation J44.1 and Depression F32.9 [place] [id number] [place] [address] 96703- 8432 May, [place] [address] [place] [id number] [place] [address] 28150- 2562 Apr, Hyperlipidemia 272.4 ; Coronary artery disease 414.00 ; History of stroke V12.54 ; COPD (chronic obstructive pulmonary disease) 496 ; Hypertension 401.9 ; Sciatica 724.3 ; Encounter for monitoring coumadin therapy V58.83 ; Vertigo as late effect of stroke 438.85 ; Generalized anxiety disorder 300.02 and GERD (gastroesophageal reflux disease) 530.81 IMMUNIZATIONS No Known Immunizations SOCIAL HISTORY Never Assessed REASON FOR VISIT Depression and anxeity PLAN OF CARE Activity Details Follow Up 1 Week Reason:depression and anxiety VITAL SIGNS MEDICATIONS No Known Medications RESULTS No Results PROCEDURES Procedure Date Ordered Result Body Site [facility] VISIT MENTAL HEALTH ESTAB PT Jul 11, 2017 Psychotherapy, patient &/family, 30 minutes, established patient Jul 11, 2017 visit needs to be added to the same day medical Jul 11, 2017 INSTRUCTIONS MEDICATIONS ADMINISTERED No Known Medications MEDICAL (GENERAL) HISTORY Type Description Date Medical History 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
--- OUTSIDE RECORDS SUMMARY | 2018-02-06 11:10 | XMS REPORT ---
Author Author ROJAS JUNIOR [facility] Address [address] [place] [address] Care Team Providers Care Ceo Na Name Role Phone ROJASLYRIC COLMENARESHANY Unavailable PROBLEMS Type Condition ICD9-CM Code ATQ28-YO Code Onset Dates Condition Status SNOMED Code Problem History of stroke Z86.73 Active 667029059 Problem S/P CABG x 5 Z95.1 Active 247760648 Problem Anemia D64.9 Active 863419142 Problem Post traumatic stress disorder (PTSD) F43.10 Active 13762838 Problem Essential hypertension I10 Active 02816160 Problem Panic attack F41.0 Active 397976881 Problem Sciatica, unspecified side M54.30 Active 09706486 Problem Generalized anxiety disorder F41.1 Active 26370016 Problem Sciatica of left side M54.32 Active 85038638 Problem Intractable migraine without aura and with status migrainosus G43.011 Active 083673871 Problem Cannabis abuse F12.10 Active 00106763 Problem 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 Active 87024904 Problem Hyperlipidemia, unspecified E78.5 Active 81686715 Problem 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 Active 58558351 Problem Chronic obstructive pulmonary disease, unspecified J44.9 Active 90258900 Problem Hepatic steatosis K76.0 Active 474855252 Problem Other elevated white blood cell count D72.828 Active 838635114 Problem Mixed obsessional thoughts and acts F42.2 Active 58827284 Problem Diarrhea, unspecified type R19.7 Active 81361234 Problem Depression F32.9 Active 63416650 Problem GERD (gastroesophageal reflux disease) K21.9 Active 382498529 Problem Hyperplastic colonic polyp, unspecified part of colon K63.5 Active 186191080 Problem Anticoagulant long-term use Z79.01 Active 840311255 Problem Prediabetes R73.03 Active 832022819 Problem Vertigo R42 Active 677128942 Problem Paroxysmal atrial fibrillation I48.0 Active 352172213 Problem 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 Active 474740979 ALLERGIES Substance Reaction Event Type Date Status Vicodin Unknown Drug Allergy Jan, Active PredniSONE Unknown Drug Allergy Jan, Active ENCOUNTERS Encounter Location Date Diagnosis [facility] [id number] [place] [address]112[address] Nov, [facility] [place] [id number] [place] [address] 43555- 7519 Nov, [facility] [id number] [place] [address] 34172- 9923 Sep, 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 ; Mixed obsessional thoughts and acts F42.2 and Cannabis abuse F12.10 [facility] [id number] [place] [address] 26480- 4013 Aug, 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 ; Mixed obsessional thoughts and acts F42.2 and Cannabis abuse F12.10 [facility] [id number] [place] [address] 71664- 7746 Aug, 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 and Mixed obsessional thoughts and acts F42.2 [facility] [id number] [place] [address] 16302- 4569 Jul, 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 and Mixed obsessional thoughts and acts F42.2 [facility] [id number] [place] [address] 71653- 2090 Jul, 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 and Mixed obsessional thoughts and acts F42.2 [facility] [id number] [place] [address] 38075- 2274 Jul, 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 ; Mixed obsessional thoughts and acts F42.2 and Cannabis abuse F12.10 [facility] [id number] [place] [address] 97469- 8578 Jun, 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 ; Mixed obsessional thoughts and acts F42.2 and Cannabis abuse F12.10 [facility] [id number] [place] [address] 53669- 0893 Jun, [facility] [id number] [place] [address] 22400- 5316 Jun, 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 ; Mixed obsessional thoughts and acts F42.2 and Cannabis abuse F12.10 [facility] [id number] [place] [address] 78595- 1065 May, 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 ; Mixed obsessional thoughts and acts F42.2 and Cannabis abuse F12.10 [facility] [id number] [place] [address] 39918- 0609 May, 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 [facility] [id number] [place] [address] 18836- 9335 Mar, [facility] [id number] [place] [address] 51773- 1041 Mar, Chronic combined systolic (congestive) and diastolic ( congestive) heart failure I50.42 ; Diarrhea, unspecified type R19.7 ; Hepatic steatosis K76.0 and Generalized postprandial abdominal pain R10.84 [facility] [id number] [place] [address] 41109- 6286 Jan, Generalized abdominal pain R10.84 [facility] [id number] [place] [address] 47143- 1555 Jan, Generalized abdominal pain R10.84 ; Generalized postprandial abdominal pain R10.84 ; Diarrhea, unspecified type R19.7 ; Non- intractable vomiting with nausea, unspecified vomiting type R11.2 ; GERD ( gastroesophageal reflux disease) K21.9 ; S/P CABG x 5 Z95.1 ; Prominent abdominal aortic pulsation R09.89 and Other elevated white blood cell count D72.828 [place] [id number] [place] [address] 99359- 5826 Jan, Vertigo R42 [facility] [id number] [place] [address] 64803- 4730 Jan, Other elevated white blood cell count D72.828 [facility] [id number] [place] [address] 84515- 2515 Jan, Other elevated white blood cell count D72.828 [facility] [id number] [place] [address] 24596- 2665 Jan, Hyperlipidemia, unspecified E78.5 ; Sciatica of left side M54.32 ; Weight loss R63.4 and Night sweats R61 [facility] [id number] [place] [address] [phone] December, Dental caries K02.9 and Dental examination Z01.20 [place] [id number] [place] [address] 34612- 7102 Oct, Vertigo R42 ; Nausea R11.0 ; Chronic obstructive pulmonary disease, unspecified J44.9 ; GERD (gastroesophageal reflux disease) K21.9 ; S/P CABG x 5 Z95.1 ; Hyperlipidemia, unspecified E78.5 ; Essential hypertension I10 ; Paroxysmal atrial fibrillation I48.0 and Depression F32.9 [place] [address] [place] [address] 80762- 1489 Oct, [facility] [id number] [place] [address] 80742- 4742 Oct, Hyperlipidemia, unspecified E78.5 [facility] [id number] [place] [address] 60065- 1989 Oct, 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 [facility] [id number] [place] [address] 65323- 6936 Oct, Vertigo R42 [place] [id number] [place] [address] 20760- 7311 Oct, [facility] [address] [address] Sep, [facility] [address] [place] [address] 61362- 2864 Aug, 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 [facility] [id number] [place] [address] 96589- 2141 05 Jul, 2016 Depression F32.9 ; Generalized anxiety disorder F41.1 and Panic attack F41.0 [facility] [address] [place] [address] [phone] 02 Jul, 2016 Dental examination Z01.20 [facility] [id number] [place] [address] 60541- 0916 30 Jun, 2016 [facility] [id number] [place] [address] 08708- 0759 30 Jun, 2016 Encounter for dental examination and cleaning without abnormal findings Z01.20 [facility] [id number] [place] [address] 79668- 6780 15 Jun, 2016 Intractable migraine without aura and with status migrainosus G43.011 ; 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 ; Depression F32.9 and B12 deficiency E53.8 [facility] [address] [place] [address] 73927- 0647 Jun, 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 [facility] [address] [place] [address] 70083- 4910 14 Jun, 2016 Depression F32.9 ; Generalized anxiety disorder F41.1 ; Post traumatic stress disorder (PTSD) F43.10 and Panic attack F41.0 [facility] [address] [address] 04 Jun, 2016 [facility] [id number] [place] [address] 37274- 7813 Jun, [facility] [id number] [place] [address] 80695- 2132 May, [place] [address] [address]65- 7793 May, Elevated glucose R73.09 ; Depression F32.9 ; Hyperlipidemia , unspecified E78.5 ; Prediabetes R73.03 ; B12 deficiency E53.8 ; Vertigo R42 ; Seborrheic keratosis L82.1 ; Chronic obstructive pulmonary disease, unspecified J44.9 and Blurry vision H53.8 [place] [address] 276[address]- 3347 Apr, [facility] [address] 30836- 9652 Jan, Elevated glucose R73.09 ; Anemia D64.9 and Weakness generalized R53.[address] [address]- [address]76 Jan, [facility] [address] 42340- 7706 Jan, [facility] [address] 62774- 7855 December, Sciatica, left side M54.[address] 32[address]- [address] Nov, Sciatica, unspecified side M54.30 ; Chronic obstructive pulmonary disease, unspecified J44.9 ; GERD (gastroesophageal reflux disease) K21.9 ; 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 and Pre-syncope R55 [address] 8[address]- 3498 Sep, [facility] [facility] [address] 70353- 8192 Aug, Coumadin toxicity, accidental or unintentional, subsequent encounter T60.4X1D [facility] [id number] [place] [address] 85316- 7042 Aug, [facility] [address] 16221- 7123 Aug, Coumadin toxicity, accidental or unintentional, subsequent encounter T60.4X1D ; Atherosclerosis of coronary artery bypass graft(s) without angina pectoris I25.810 and History of stroke Z86.73 [facility] [address] [address] Aug, Ear canal abrasion, left, initial encounter S00.412A and Anticoagulant long-term use Z79.01 [facility] [address] 28135- 9999 Jul, [facility] [address] 01916- 3950 Jul, Anticoagulant long-term use Z79.01 ; Polyarthralgia M25.50 ; Sciatica, left M54.32 ; Costochondritis M94.0 ; COPD exacerbation J44.1 and Depression F32.9 [facility] [address] 38597- 4064 May, [facility] [address] 59113- 4621 Apr, Hyperlipidemia 272.4 ; Coronary artery disease 414.00 ; History of stroke V12.54 ; COPD (chronic obstructive pulmonary disease) 496 ; Hypertension 401.9 ; Sciatica 724.3 ; Encounter for monitoring coumadin therapy V58.83 ; Vertigo as late effect of stroke 438.85 ; Generalized anxiety disorder 300.02 and GERD (gastroesophageal reflux disease) 530.81 IMMUNIZATIONS No Known Immunizations SOCIAL HISTORY Never Assessed REASON FOR VISIT stomach issues, pt. states having trouble eating, diarrhea all day, vomiting and upset stomach, pt. states stomach problems have been going on for a long time but is flaring up and that he has talked with dr. art about doing an endoscope and wants to disucss this, [place],[facility] PLAN OF CARE Activity Details Follow Up 4 Weeks Reason:Abdominal pain VITAL SIGNS Height 73 in 2017-01-25 Weight 286.5 lbs 2017-01-25 Temperature 98.7 degrees Fahrenheit 2017-01-25 Heart Rate 90 bpm 2017-01-25 Respiratory Rate 20 2017-01-25 BMI 37.79 kg/m2 2017-01-25 Blood pressure systolic 132 mmHg 2017-01-25 Blood pressure diastolic 78 mmHg 2017-01-25 MEDICATIONS Medication Instructions Dosage Frequency Start Date End Date Duration Status Pantoprazole Sodium 40 mg Orally Once a day 1 tablet 24h Jun, 90 days Active Praluent 150 MG/ML Subcutaneous every 2 weeks 1 ml Active Baclofen 20 TAKE 1 TABLET BY MOUTH THREE TIMES DAILY WITH FOOD OR MILK 30 Active Duloxetine HCl 60 mg Orally Twice a day 1 capsule ( 30mg cap) 12h 17 Aug, 2016 Active Combivent Respimat 20-100 MCG/ACT Inhalation Four times a day 1 puff 6h 30 days Active Tylenol Active Metoprolol Succinate ER 50 MG Orally 2 times a day 1 tablet 12h Active Zetia 10 MG Orally Once a day 1 tablet 24h Active Plavix 75 MG Orally Once a day 1 tablet 24h Active Ventolin HFA 108 (90 Base) MCG/ACT Inhalation every 6 hrs 2 puffs as needed 6h Active Meclizine HCl 25 Orally 4 times a day 1 tablet as needed 6h 30 days Active Xarelto 20 MG Orally Once a day 1 tablet with food 24h 30 Active Isosorbide Mononitrate ER 60 MG TAKE 1 TABLET BY MOUTH ONCE DAILY Active Promethazine HCl 50 MG Orally every 6 hrs 0.5 tablet as needed for nausea 6h Jun, Active Nitrostat 0.4 MG Sublingual q5 min max 3 doses in 15 min as needed for angina 1 tablet Active Trazodone HCl 50 MG Orally Once a day 1 - 2 tablet at bedtime as needed 24h Active Atorvastatin Calcium 80 MG Orally Once a day 1 tablet 24h 90 Active Ranexa 1000 MG Orally Twice a day 1 tablet 12h Active Amlodipine Besylate 5 MG Orally Once a day 1 tablet 24h Active Effient 10 MG Orally Once a day 1 tablet 24h Active RESULTS Name Result Date Reference Range CBC 2017-01-25 WBC 11.9 3.4-10.8 RBC 4.65 4.14-5.80 Hemoglobin 13.5 12.6-17.7 Hematocrit 39.6 37.5-51.0 MCV 85 79-97 MCH 29.0 26.6-33.0 MCHC 34.1 31.5-35.7 RDW 14.0 12.3-15.4 Platelets 301 150-379 Neutrophils 60 Lymphs 32 Monocytes 5 Eos 3 Basos 0 Neutrophils (Absolute) 7.1 1.4-7.0 Lymphs (Absolute) 3.8 0.7-3.1 Monocytes(Absolute) 0.6 0.1-0.9 Eos (Absolute) 0.4 0.0-0.4 Baso (Absolute) 0.0 0.0-0.2 Immature Granulocytes 0 Immature Grans (Abs) 0.0 0.0-0.1 ESR/SED RATE 2017-01-25 [facility] CRP 2017-01-25 C-Reactive Protein, Quant 5.4 0.0-4.9 Ultrasound : Aortic (doppler) 2017-02-07 PROCEDURES Procedure Date Ordered Result Body Site [facility] VISIT ESTABLISHED PATIENT January 25, 2017 VENIPUNCT, ROUTINE* January 25, 2017 INSTRUCTIONS MEDICATIONS ADMINISTERED No Known Medications [...] 02/2017 Hospitalization History For surgeries Hospitalization History [facility] in his 20's
--- OUTSIDE RECORDS SUMMARY | 2018-02-06 11:10 | XMS REPORT ---
Author Author SEGUNDO HUTCHISON [facility] Address [address] [place] [address] Care Team Providers Care Inventory Manager Name Role Phone KIANNA SEGUNDO Unavailable PROBLEMS Type Condition ICD9-CM Code [id number] Code Onset Dates Condition Status SNOMED Code Problem History of stroke Z86.73 Active 940017897 Problem S/P CABG x 5 Z95.1 Active 340908129 Problem Anemia D64.9 Active 032832545 Problem Post traumatic stress disorder (PTSD) F43.10 Active 62289864 Problem Essential hypertension I10 Active 95353877 Problem Panic attack F41.0 Active 721546028 Problem Sciatica, unspecified side M54.30 Active 50156670 Problem Generalized anxiety disorder F41.1 Active 36353302 Problem Sciatica of left side M54.32 Active 10638449 Problem Intractable migraine without aura and with status migrainosus G43.011 Active 006973011 Problem Cannabis abuse F12.10 Active 64822123 Problem 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 Active 70149281 Problem Hyperlipidemia, unspecified E78.5 Active 31953221 Problem 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 Active 14795928 Problem Chronic obstructive pulmonary disease, unspecified J44.9 Active 08149001 Problem Hepatic steatosis K76.0 Active 432532480 Problem Other elevated white blood cell count D72.828 Active 797502117 Problem Mixed obsessional thoughts and acts F42.2 Active 20504942 Problem Diarrhea, unspecified type R19.7 Active 03953373 Problem Depression F32.9 Active 82996083 Problem GERD (gastroesophageal reflux disease) K21.9 Active 284123046 Problem Hyperplastic colonic polyp, unspecified part of colon K63.5 Active 301678237 Problem Anticoagulant long-term use Z79.01 Active 432784519 Problem Prediabetes R73.03 Active 159755860 Problem Vertigo R42 Active 640223471 Problem Paroxysmal atrial fibrillation I48.0 Active 349632069 Problem 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
--- OUTSIDE RECORDS SUMMARY | 2018-02-06 11:11 | XMS REPORT ---
Author Author ROJAS JUNIOR [facility] Address [address] [place] [address] Care Team Providers Care Cuff Slitter Name Role Phone ROJASLYRIC COLMENARESHANY Unavailable PROBLEMS Type Condition ICD9-CM Code JAQ15-SU Code Onset Dates Condition Status SNOMED Code Problem History of stroke Z86.73 Active 878771796 Problem S/P CABG x 5 Z95.1 Active 489145131 Problem Anemia D64.9 Active 044555192 Problem Post traumatic stress disorder (PTSD) F43.10 Active 37922479 Problem Essential hypertension I10 Active 93092304 Problem Panic attack F41.0 Active 583694876 Problem Sciatica, unspecified side M54.30 Active 94381300 Problem Generalized anxiety disorder F41.1 Active 79690529 Problem Sciatica of left side M54.32 Active 24464990 Problem Intractable migraine without aura and with status migrainosus G43.011 Active 516733460 Problem Cannabis abuse F12.10 Active 80621122 Problem 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 Active 04854480 Problem Hyperlipidemia, unspecified E78.5 Active 63270587 Problem 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 Active 76343166 Problem Chronic obstructive pulmonary disease, unspecified J44.9 Active 42478007 Problem Hepatic steatosis K76.0 Active 817185485 Problem Other elevated white blood cell count D72.828 Active 468453652 Problem Mixed obsessional thoughts and acts F42.2 Active 98182725 Problem Diarrhea, unspecified type R19.7 Active 33829958 Problem Depression F32.9 Active 96051557 Problem GERD (gastroesophageal reflux disease) K21.9 Active 564232806 Problem Hyperplastic colonic polyp, unspecified part of colon K63.5 Active 837452063 Problem Anticoagulant long-term use Z79.01 Active 204759376 Problem Prediabetes R73.03 Active 638991543 Problem Vertigo R42 Active 759545712 Problem Paroxysmal atrial fibrillation I48.0 Active 641462122 Problem 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 Active 976427099 ALLERGIES No Information ENCOUNTERS Encounter Location Date Diagnosis [place] [id number] [place] [address] 95483- 7597 Nov, [place] [address] [place] [id number] [place] [address] 83316- 2015 Nov, [place] [address] [place] [id number] [place] [address] 20035- 3666 Sep, 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 ; Mixed obsessional thoughts and acts F42.2 and Cannabis abuse F12.10 [place] [address] [place] [id number] [place] [address] 65242- 6067 Aug, 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 ; Mixed obsessional thoughts and acts F42.2 and Cannabis abuse F12.10 [place] [address] [place] [id number] [place] [address] 64468- 3226 Aug, 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 and Mixed obsessional thoughts and acts F42.2 [place] [address] [place] [id number] [place] [address] 36684- 0730 Jul, 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 and Mixed obsessional thoughts and acts F42.2 [place] [id number] [place] [address] 79866- 8077 Jul, 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 and Mixed obsessional thoughts and acts F42.2 [place] [address] [place] [id number] [place] [address] 56671- 0275 Jul, 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 ; Mixed obsessional thoughts and acts F42.2 and Cannabis abuse F12.10 [place] [id number] [place] [address] 67720- 0169 Jun, 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 ; Mixed obsessional thoughts and acts F42.2 and Cannabis abuse F12.10 [place] [id number] [place] [address] 68462- 1711 Jun, [place] [address] [place] [id number] [place] [address] 66450- 6835 Jun, 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 ; Mixed obsessional thoughts and acts F42.2 and Cannabis abuse F12.10 [place] [address] [place] [id number] [place] [address] 77560- 6514 May, 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 ; Mixed obsessional thoughts and acts F42.2 and Cannabis abuse F12.10 [place] [address] [place] [id number] [place] [address] 24267- 1891 May, 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 [place] [address] [place] [id number] [place] [address] 17460- 7385 Mar, [place] [address] [place] [id number] [place] [address] 41622- 5788 Mar, Chronic combined systolic (congestive) and diastolic ( congestive) heart failure I50.42 ; Diarrhea, unspecified type R19.7 ; Hepatic steatosis K76.0 and Generalized postprandial abdominal pain R10.84 [place] [address] [place] [id number] [place] [address] 86586- 4458 Jan, Generalized abdominal pain R10.84 [place] [address] [place] [id number] [place] [address] 67529- 8726 Jan, Generalized abdominal pain R10.84 ; Generalized postprandial abdominal pain R10.84 ; Diarrhea, unspecified type R19.7 ; Non- intractable vomiting with nausea, unspecified vomiting type R11.2 ; GERD ( gastroesophageal reflux disease) K21.9 ; S/P CABG x 5 Z95.1 ; Prominent abdominal aortic pulsation R09.89 and Other elevated white blood cell count D72.828 [place] [address] [place] [id number] [place] [address] 06284- 1010 Jan, Vertigo R42 [place] [id number] [place] [address] 89185- 6152 Jan, Other elevated white blood cell count D72.828 [place] [address] [place] [id number] [place] [address] 58139- 8543 Jan, Other elevated white blood cell count D72.828 [place] [address] [place] [id number] [place] [address] 86884- 3955 Jan, Hyperlipidemia, unspecified E78.5 ; Sciatica of left side M54.32 ; Weight loss R63.4 and Night sweats R61 [facility] [address] [place] [id number] [place] [address] [id number] December, Dental caries K02.9 and Dental examination Z01.20 [place] [address] [place] [id number] [place] [address] 11081- 5052 Oct, Vertigo R42 ; Nausea R11.0 ; Chronic obstructive pulmonary disease, unspecified J44.9 ; GERD (gastroesophageal reflux disease) K21.9 ; S/P CABG x 5 Z95.1 ; Hyperlipidemia, unspecified E78.5 ; Essential hypertension I10 ; Paroxysmal atrial fibrillation I48.0 and Depression F32.9 [place] [address], [place] [address] Oct, [place] [address] [place] [id number] [place] [address] 49485- 7429 Oct, Hyperlipidemia, unspecified E78.5 [place] [address] [place] [id number] [place] [address] 50012- 4660 Oct, 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 [place] [address] [place] [id number] [place] [address] 07750- 7305 Oct, Vertigo R42 [place] [id number] [place] [address] 60702- 9306 Oct, [place] [address] [place] [id number] [place] [address] 06228- 3842 Sep, [facility] [address] [place] [id number] [place] [address] 22400- 6225 Aug, 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 [facility] [address] [place] [id number] [place] [address] 28282- 5911 05 Jul, 2016 Depression F32.9 ; Generalized anxiety disorder F41.1 and Panic attack F41.0 [facility] [address] [id number] Jul, 2016 Dental examination Z01.20 [place] [address] 45852- 2076 30 Jun, 2016 [place] [address] [place] [id number] [place] [address] 94721- 0378 30 Jun, 2016 Encounter for dental examination and cleaning without abnormal findings Z01.20 [facility] [address] [place] [id number] [place] [address] 76705- 0431 15 Jun, 2016 Intractable migraine without aura and with status migrainosus G43.011 ; 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 ; B12 deficiency E53.8 and Depression F32.9 [place] [address] [place] [id number] [place] [address] 48719- 5670 15 Jun, 2016 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 [facility] [address] [place] [id number] [place] [address] 01358- 2455 14 Jun, 2016 Depression F32.9 ; Generalized anxiety disorder F41.1 ; Post traumatic stress disorder (PTSD) F43.10 and Panic attack F41.0 [facility] [address] [place] [id number] [place] [address] 68971- 2772 04 Jun, 2016 [facility] [address] [place] [id number] [place] [address] 73441- 7455 Jun, [facility] [address] [place] [id number] [place] [address] 60625- 3412 May, [place] [address] [place] [id number] [place] [address] 62310- 9124 May, Elevated glucose R73.09 ; Depression F32.9 ; Hyperlipidemia , unspecified E78.5 ; Prediabetes R73.03 ; B12 deficiency E53.8 ; Vertigo R42 ; Seborrheic keratosis L82.1 ; Chronic obstructive pulmonary disease, unspecified J44.9 and Blurry vision H53.8 [place] [address] 31305- 5915 Apr, [address] 71245- 4563 Jan, Elevated glucose R73.09 ; Anemia D64.9 and Weakness generalized R53.[address] 01988- 4458 Jan, [place] [address] 55007- 9978 Jan, [place] [address] [place] [id number] [place] [address] 16428- 4910 December, Sciatica, left side M54.[address] 70085- 7973 Nov, Sciatica, unspecified side M54.30 ; Chronic obstructive pulmonary disease, unspecified J44.9 ; GERD (gastroesophageal reflux disease) K21.9 ; 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 and Pre-syncope R55 [address] 95769- 3736 Sep, [place] [address] 05749- 3662 Aug, Coumadin toxicity, accidental or unintentional, subsequent encounter T60.4X1D [address] 53085- 3060 Aug, [facility] [address] [place] [address]- [address]60 Aug, Coumadin toxicity, accidental or unintentional, subsequent encounter T60.4X1D ; Atherosclerosis of coronary artery bypass graft(s) without angina pectoris I25.810 and History of stroke Z86.73 [facility] [address] [place] [id number] [place] [address] 58248 -0253 Aug, Ear canal abrasion, left, initial encounter S00.412A and Anticoagulant long-term use Z79.01 [facility] [address] [place] [id number] [place] [address] 75620- 4161 Jul, [facility] [address] [place] [id number] [place] [address] 96769- 0725 Jul, Anticoagulant long-term use Z79.01 ; Polyarthralgia M25.50 ; Sciatica, left M54.32 ; Costochondritis M94.0 ; COPD exacerbation J44.1 and Depression F32.9 [facility] [id number] [place] [address] 97106- 3516 May, [facility] [address] [place] [id number] [place] [address] 71185- 2985 Apr, Hyperlipidemia 272.4 ; Coronary artery disease 414.00 ; History of stroke V12.54 ; COPD (chronic obstructive pulmonary disease) 496 ; Hypertension 401.9 ; Sciatica 724.3 ; Encounter for monitoring coumadin therapy V58.83 ; Vertigo as late effect of stroke 438.85 ; Generalized anxiety disorder 300.02 and GERD (gastroesophageal reflux disease) 530.81 IMMUNIZATIONS No Known Immunizations SOCIAL HISTORY Never Assessed REASON FOR VISIT Refill Request PLAN OF CARE VITAL SIGNS MEDICATIONS Medication Instructions Dosage Frequency Start Date End Date Duration Status Meclizine HCl 25 Orally 4 times a day 1 tablet as needed 6h 30 days Active RESULTS No Results PROCEDURES No Known procedures INSTRUCTIONS MEDICATIONS ADMINISTERED No Known Medications MEDICAL [...] 02/2017 Hospitalization History For surgeries Hospitalization History [facility] in his 20's
--- OUTSIDE RECORDS SUMMARY | 2018-02-06 11:11 | XMS REPORT ---
Author Author HALLE SCHNEIDER Organization [facility] Address [address] [place] [address] Care Team Providers Care Human Resources Administrator Name Role Phone HALLE SCHNEIDER Unavailable PROBLEMS Type Condition ICD9-CM Code TGB89-[id number] Code Onset Dates Condition Status SNOMED Code Problem History of stroke Z86.73 Active 584569587 Problem S/P CABG x 5 Z95.1 Active 363277946 Problem Anemia D64.9 Active 799268110 Problem Post traumatic stress disorder (PTSD) F43.10 Active 03778670 Problem Essential hypertension I10 Active 59753704 Problem Panic attack F41.0 Active 069126678 Problem Sciatica, unspecified side M54.30 Active 70279128 Problem Generalized anxiety disorder F41.1 Active 90078780 Problem Sciatica of left side M54.32 Active 30106049 Problem Intractable migraine without aura and with status migrainosus G43.011 Active 277427113 Problem Cannabis abuse F12.10 Active 95754340 Problem 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 Active 79770192 Problem Hyperlipidemia, unspecified E78.5 Active 03447678 Problem 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 Active 67579537 Problem Chronic obstructive pulmonary disease, unspecified J44.9 Active 33506223 Problem Hepatic steatosis K76.0 Active 065180705 Problem Other elevated white blood cell count D72.828 Active 481546865 Problem Mixed obsessional thoughts and acts F42.2 Active 52069539 Problem Diarrhea, unspecified type R19.7 Active 15249834 Problem Depression F32.9 Active 01353877 Problem GERD (gastroesophageal reflux disease) K21.9 Active 319926833 Problem Hyperplastic colonic polyp, unspecified part of colon K63.5 Active 984875668 Problem Anticoagulant long-term use Z79.01 Active 749232216 Problem Prediabetes R73.03 Active 753343581 Problem Vertigo R42 Active 498172125 Problem Paroxysmal atrial fibrillation I48.0 Active 089679463 Problem 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 Active 403511780 ALLERGIES No Information ENCOUNTERS Encounter Location Date Diagnosis [place] [id number] [place] [address]291[address]37 Nov, Chronic combined systolic (congestive) and diastolic ( congestive) heart failure I50.42 ; Chronic obstructive pulmonary disease, unspecified J44.9 ; Essential hypertension I10 ; Hyperlipidemia, unspecified E78.5 ; Anticoagulant long-term use Z79.01 ; Depression F32.9 ; Paroxysmal atrial fibrillation I48.0 and 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 [place] [address] [place] [id number] [place] [address] 21794- 9510 Oct, Chronic obstructive pulmonary disease, unspecified J44.9 [place] [address] [address] Sep, 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 ; Mixed obsessional thoughts and acts F42.2 and Cannabis abuse F12.10 [place] [address] [place] [id number] [place] [address] 76993- 5180 Aug, 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 ; Mixed obsessional thoughts and acts F42.2 and Cannabis abuse F12.10 [place] [address] [place] [id number] [place] [address] 68893- 5560 Aug, 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 and Mixed obsessional thoughts and acts F42.2 [place] [address] [place] [id number] [place] [address] 53347- 3491 Jul, 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 and Mixed obsessional thoughts and acts F42.2 [place] [address] [place] [id number] [place] [address] 70300- 7823 Jul, 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 and Mixed obsessional thoughts and acts F42.2 [place] [address] [place] [id number] [place] [address] 06788- 1453 Jul, 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 ; Mixed obsessional thoughts and acts F42.2 and Cannabis abuse F12.10 [place] [address] [place] [id number] [place] [address] 62390- 3464 Jun, 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 ; Mixed obsessional thoughts and acts F42.2 and Cannabis abuse F12.10 [place] [address] [place] [id number] [place] [address] 28212- 0582 Jun, [place] [address] [place] [id number] [place] [address] 66055- 122 Jun, 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 ; Mixed obsessional thoughts and acts F42.2 and Cannabis abuse F12.10 [place] [address] [place] [id number] [place] [address] 81684- 9122 May, 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 ; Mixed obsessional thoughts and acts F42.2 and Cannabis abuse F12.10 [place] [address] [place] [id number] [place] [address] 76646- 1243 May, 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 [place] [address] [place] [id number] [place] [address] 96554- 5986 Mar, [place] [address] [place] [id number] [place] [address] 38586- 3263 Mar, Chronic combined systolic (congestive) and diastolic ( congestive) heart failure I50.42 ; Diarrhea, unspecified type R19.7 ; Hepatic steatosis K76.0 and Generalized postprandial abdominal pain R10.84 [place] [address] [place] [id number] [place] [address] 27302- 1320 Jan, Generalized abdominal pain R10.84 [place] [address] [place] [id number] [place] [address] 75952- 3239 Jan, Generalized abdominal pain R10.84 ; Generalized postprandial abdominal pain R10.84 ; Diarrhea, unspecified type R19.7 ; Non- intractable vomiting with nausea, unspecified vomiting type R11.2 ; GERD ( gastroesophageal reflux disease) K21.9 ; S/P CABG x 5 Z95.1 ; Prominent abdominal aortic pulsation R09.89 and Other elevated white blood cell count D72.828 [place] [address] [place] [id number] [place] [address] 79370- 5311 Jan, Vertigo R42 [place] [address] 70429- 8884 Jan, Other elevated white blood cell count D72.828 [place] [address] 03794- 2363 Jan, Other elevated white blood cell count D72.828 [place] [address] [place] [id number] [place] [address] 38862- 7649 Jan, Hyperlipidemia, unspecified E78.5 ; Sciatica of left side M54.32 ; Weight loss R63.4 and Night sweats R61 [facility] [address] [place] [id number] [place] [address] [id number] December, Dental caries K02.9 and Dental examination Z01.20 [place] [address] [place] [id number] [place] [address] 61070- 7693 Oct, Vertigo R42 ; Nausea R11.0 ; Chronic obstructive pulmonary disease, unspecified J44.9 ; GERD (gastroesophageal reflux disease) K21.9 ; S/P CABG x 5 Z95.1 ; Hyperlipidemia, unspecified E78.5 ; Essential hypertension I10 ; Paroxysmal atrial fibrillation I48.0 and Depression F32.9 [place] [address] [place] [id number] [place] [address] 79199- 3879 Oct, [place] [address] [place] [id number] [place] [address] 43988- 5353 Oct, Hyperlipidemia, unspecified E78.5 [place] [address] [place] [id number] [place] [address] 70523- 7225 Oct, 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 [facility] [address] [place] [address] 44991- 8608 15 Oct, 2016 Vertigo R42 [facility] [address] [place] [id number] [place] [address] 46155- 0211 03 Oct, 2016 [facility] [address] [place] [id number] [place] [address] 09539- 8595 Sep, [facility] [address] [place] [id number] [place] [address] 83669- 6801 Aug, 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 [place] [address] [place] [id number] [place] [address] 61924- 8559 05 Jul, 2016 Depression F32.9 ; Generalized anxiety disorder F41.1 and Panic attack F41.0 [facility] [address] [id number] 02 Jul, 2016 Dental examination Z01.20 [facility] [address] [place] [id number] [place] [address] 75091- 5484 30 Jun, 2016 [facility] [address] [place] [id number] [place] [address] 57344- 5069 30 Jun, 2016 Encounter for dental examination and cleaning without abnormal findings Z01.20 [facility] [address] [place] [id number] [place] [address] 23641- 9861 15 Jun, 2016 Intractable migraine without aura and with status migrainosus G43.011 ; 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 ; B12 deficiency E53.8 and Depression F32.9 [facility] [address] [place] [id number] [place] [address] 12643- 1335 15 Jun, 2016 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 [facility] [address] [place] [address] 03865- 5087 14 Jun, 2016 Depression F32.9 ; Generalized anxiety disorder F41.1 ; Post traumatic stress disorder (PTSD) F43.10 and Panic attack F41.0 [place] [id number] [place] [address] 35598- 7444 Jun, [place] [address] Jun, [address] 447[address]- 6463 May, [address] 56[address]- [address] May, Elevated glucose R73.09 ; Depression F32.9 ; Hyperlipidemia , unspecified E78.5 ; Prediabetes R73.03 ; B12 deficiency E53.8 ; Vertigo R42 ; Seborrheic keratosis L82.1 ; Chronic obstructive pulmonary disease, unspecified J44.9 and Blurry vision H53.[address] 04227- 1173 Apr, [address] 64961- 4197 Jan, Elevated glucose R73.09 ; Anemia D64.9 and Weakness generalized R53.1 [place] [id number] [place] [address] 42745- 4654 Jan, [place] [id number] [place] [address] 70534- 2702 Jan, [address] 44731- 4592 December, Sciatica, left side M54.[address] 04198- 2124 Nov, Sciatica, unspecified side M54.30 ; Chronic obstructive pulmonary disease, unspecified J44.9 ; GERD (gastroesophageal reflux disease) K21.9 ; 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 and Pre-syncope R55 [place] [id number] [place] [address] 29599- 5173 Sep, [facility] [address] 46619- 8920 Aug, Coumadin toxicity, accidental or unintentional, subsequent encounter T60.4X1D [place] [address] 58750- 4614 Aug, [facility] [address] 38141- 0845 Aug, Coumadin toxicity, accidental or unintentional, subsequent encounter T60.4X1D ; Atherosclerosis of coronary artery bypass graft(s) without angina pectoris I25.810 and History of stroke Z86.73 [facility] [address] [place] [id number] [place] [address] 85579 -8088 Aug, Ear canal abrasion, left, initial encounter S00.412A and Anticoagulant long-term use Z79.01 [place] [address] [place] [id number] [place] [address] 57676- 8474 Jul, [address] 81331- 2612 Jul, Anticoagulant long-term use Z79.01 ; Polyarthralgia M25.50 ; Sciatica, left M54.32 ; Costochondritis M94.0 ; COPD exacerbation J44.1 and Depression F32.9 [place] [id number] [place] [address] 15469- 1453 May, [place] [address] [place] [id number] [place] [address] 28850- 8174 Apr, Hyperlipidemia 272.4 ; Coronary artery disease 414.00 ; History of stroke V12.54 ; COPD (chronic obstructive pulmonary disease) 496 ; Hypertension 401.9 ; Sciatica 724.3 ; Encounter for monitoring coumadin therapy V58.83 ; Vertigo as late effect of stroke 438.85 ; Generalized anxiety disorder 300.02 and GERD (gastroesophageal reflux disease) 530.81 IMMUNIZATIONS No Known Immunizations SOCIAL HISTORY Never Assessed REASON FOR VISIT BH f/u, Depression and anxeity PLAN OF CARE Activity Details Follow Up Next available Reason:depression and anxiety VITAL SIGNS MEDICATIONS No Known Medications RESULTS No Results PROCEDURES Procedure Date Ordered Result Body Site [facility] VISIT MENTAL HEALTH ESTAB PT Jul 18, 2017 Psychotherapy, patient &/family, 45 minutes, established patient Jul 18, 2017 INSTRUCTIONS MEDICATIONS ADMINISTERED No Known Medications [...] 02/2017 Hospitalization History For surgeries [facility]
--- OUTSIDE RECORDS SUMMARY | 2018-02-06 11:12 | XMS REPORT ---
Author Author TAMIKO WEISS [facility] Address Unknown Care Team Providers Care Global President Name Role Phone TAMIKO WEISS Unavailable PROBLEMS Type Condition ICD9-CM Code QSD52-XZ Code Onset Dates Condition Status SNOMED Code Problem History of stroke Z86.73 Active 717289856 Problem S/P CABG x 5 Z95.1 Active 666686319 Problem Anemia D64.9 Active 451401570 Problem Post traumatic stress disorder (PTSD) F43.10 Active 31683419 Problem Essential hypertension I10 Active 60398397 Problem Panic attack F41.0 Active 609899557 Problem Sciatica, unspecified side M54.30 Active 25893783 Problem Generalized anxiety disorder F41.1 Active 27453210 Problem Sciatica of left side M54.32 Active 89114559 Problem Intractable migraine without aura and with status migrainosus G43.011 Active 733012105 Problem Cannabis abuse F12.10 Active 12481832 Problem 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 Active 80076372 Problem Hyperlipidemia, unspecified E78.5 Active 89191362 Problem 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 Active 71905312 Problem Chronic obstructive pulmonary disease, unspecified J44.9 Active 43265749 Problem Hepatic steatosis K76.0 Active 031120126 Problem Other elevated white blood cell count D72.828 Active 276255457 Problem Mixed obsessional thoughts and acts F42.2 Active 48363576 Problem Diarrhea, unspecified type R19.7 Active 86323403 Problem Depression F32.9 Active 41896529 Problem GERD (gastroesophageal reflux disease) K21.9 Active 702033882 Problem Hyperplastic colonic polyp, unspecified part of colon K63.5 Active 047525429 Problem Anticoagulant long-term use Z79.01 Active 034979751 Problem Prediabetes R73.03 Active 545098409 Problem Vertigo R42 Active 366355132 Problem Paroxysmal atrial fibrillation I48.0 Active 829731938 Problem 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 Active 185030049 ALLERGIES Substance Reaction Event Type Date Status Vicodin Unknown Drug Allergy December, Active PredniSONE Unknown Drug Allergy December, Active ENCOUNTERS Encounter Location Date Diagnosis [place] [address] [address] Nov, [place] [address] [place] [id number] [place] [address] Nov, [place] [address] [place] [address] [id number] [place] [address] 59875- [address]388 Sep, 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 ; Mixed obsessional thoughts and acts F42.2 and Cannabis abuse F12.10 [place] [address] [place] [address] Aug, 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 ; Mixed obsessional thoughts and acts F42.2 and Cannabis abuse F12.10 [place] [id number] [place] [address] 25808- 3753 Aug, 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 and Mixed obsessional thoughts and acts F42.2 [place] [address] [place] [address] 39696- 8776 Jul, 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 and Mixed obsessional thoughts and acts F42.2 [place] [address] [place] [address] 73258- 7769 Jul, 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 and Mixed obsessional thoughts and acts F42.2 [place] [address] [address] [id number] [place] [address] 79606- 3911 Jul, 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 ; Mixed obsessional thoughts and acts F42.2 and Cannabis abuse F12.10 [place] [address] [place] [address] 92571- 5171 Jun, 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 ; Mixed obsessional thoughts and acts F42.2 and Cannabis abuse F12.10 [place] [address] [place] [address] 38363- 6568 Jun, [place] [address] [place] [id number] [place] [address] 85943- 3495 Jun, 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 ; Mixed obsessional thoughts and acts F42.2 and Cannabis abuse F12.10 [place] [address] [place] [id number] [place] [address] 32416- 6443 May, 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 ; Mixed obsessional thoughts and acts F42.2 and Cannabis abuse F12.10 [place] [address] [place] [id number] [place] [address] 31607- 3417 May, 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 [place] [address] [place] [id number] [place] [address] 00556- 7874 Mar, [place] [address] [place] [id number] [place] [address] 72116- 1013 Mar, Chronic combined systolic (congestive) and diastolic ( congestive) heart failure I50.42 ; Diarrhea, unspecified type R19.7 ; Hepatic steatosis K76.0 and Generalized postprandial abdominal pain R10.84 [place] [address] [place] [address] 68012- 6877 Jan, Generalized abdominal pain R10.84 [place] [address] [place] [id number] [place] [address] 48806- 3368 Jan, Generalized abdominal pain R10.84 ; Generalized postprandial abdominal pain R10.84 ; Diarrhea, unspecified type R19.7 ; Non- intractable vomiting with nausea, unspecified vomiting type R11.2 ; GERD ( gastroesophageal reflux disease) K21.9 ; S/P CABG x 5 Z95.1 ; Prominent abdominal aortic pulsation R09.89 and Other elevated white blood cell count D72.828 [place] [address] [id number] [place] [id number] Jan, Vertigo R42 [place] [address] [place] [id number] [place] [address] 46186- 5690 Jan, Other elevated white blood cell count D72.828 [place] [address] [place] [id number] [place] [address] 92543- 2335 Jan, Other elevated white blood cell count D72.828 [place] [address] [place] [id number] [place] [address] 44545- 9751 Jan, Hyperlipidemia, unspecified E78.5 ; Sciatica of left side M54.32 ; Weight loss R63.4 and Night sweats R61 [facility] [address] [place] [id number] [place] [address] [id number] December, Dental caries K02.9 and Dental examination Z01.20 [place] [address] [place] [id number] [place] [address] 03301- 6271 Oct, Vertigo R42 ; Nausea R11.0 ; Chronic obstructive pulmonary disease, unspecified J44.9 ; GERD (gastroesophageal reflux disease) K21.9 ; S/P CABG x 5 Z95.1 ; Hyperlipidemia, unspecified E78.5 ; Essential hypertension I10 ; Paroxysmal atrial fibrillation I48.0 and Depression F32.9 [place] [address] [place] [address] 06022- 1235 Oct, [place] [address] [place] [id number] [place] [address] 53511- 2861 Oct, Hyperlipidemia, unspecified E78.5 [place] [address] [place] [id number] [place] [address] 44391- 7093 Oct, 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 [place] [address] [place] [id number] [place] [address] 21341- 7740 Oct, Vertigo R42 [place] [address] [place] [id number] [place] [address] 75118- 6233 Oct, [place] [address] [address] Sep, [facility] [id number] [place] [address] 97241- 3348 Aug, 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 [facility] [address] [place] [address] 36645- 0489 05 Jul, 2016 Depression F32.9 ; Generalized anxiety disorder F41.1 and Panic attack F41.0 [facility] [address] [place] [address] [id number] 02 Jul, 2016 Dental examination Z01.20 [place] [address] [place] [id number] [place] [address] 47642- 3235 30 Jun, 2016 [place] [address] [place] [id number] [place] [address] 78957- 3061 30 Jun, 2016 Encounter for dental examination and cleaning without abnormal findings Z01.20 [facility] [address] [place] [address] [id number] [place] [address] 08513- 1797 15 Jun, 2016 Intractable migraine without aura and with status migrainosus G43.011 ; 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 ; B12 deficiency E53.8 and Depression F32.9 [place] [address] [address] 15 Jun, 2016 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 [facility] [address] [place] [address] 22700- 9955 14 Jun, 2016 Depression F32.9 ; Generalized anxiety disorder F41.1 ; Post traumatic stress disorder (PTSD) F43.10 and Panic attack F41.0 [facility] [address] [place] [address] 51145- 2687 04 Jun, 2016 [facility] [id number] [place] [address] 42191- 9227 Jun, [facility] [address] [place] [id number] [place] [address] 73156- 2653 May, [place] [address] [address] May, Elevated glucose R73.09 ; Depression F32.9 ; Hyperlipidemia , unspecified E78.5 ; Prediabetes R73.03 ; B12 deficiency E53.8 ; Vertigo R42 ; Seborrheic keratosis L82.1 ; Chronic obstructive pulmonary disease, unspecified J44.9 and Blurry vision H53.[address] [address]- [address]163 Apr, [address] [address]- [address] Jan, Elevated glucose R73.09 ; Anemia D64.9 and Weakness generalized R53.[address] [address]- [address] Jan, [place] [address] [address]- 1469 Jan, [address] [address]- [address] December, Sciatica, left side M54.[address] [address]- [address] Nov, Sciatica, unspecified side M54.30 ; Chronic obstructive pulmonary disease, unspecified J44.9 ; GERD (gastroesophageal reflux disease) K21.9 ; 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 and Pre-syncope R55 [address] [address]- [address]443 Sep, [address] [address]- [address] Aug, Coumadin toxicity, accidental or unintentional, subsequent encounter T60.4X1D [address] [place] [address] Aug, [facility] [address] [place] [id number] [place] [address] 59675- 5030 Aug, Coumadin toxicity, accidental or unintentional, subsequent encounter T60.4X1D ; Atherosclerosis of coronary artery bypass graft(s) without angina pectoris I25.810 and History of stroke Z86.73 [facility] [address] [address] Aug, Ear canal abrasion, left, initial encounter S00.412A and Anticoagulant long-term use Z79.01 [facility] [address] 42[address]- [address] Jul, [facility] [address] 7[address] Jul, Anticoagulant long-term use Z79.01 ; Polyarthralgia M25.50 ; Sciatica, left M54.32 ; Costochondritis M94.0 ; COPD exacerbation J44.1 and Depression F32.9 [facility] [address] 93[address]- [address] May, [facility] [address] [address]- [address] Apr, Hyperlipidemia 272.4 ; Coronary artery disease 414.00 ; History of stroke V12.54 ; COPD (chronic obstructive pulmonary disease) 496 ; Hypertension 401.9 ; Sciatica 724.3 ; Encounter for monitoring coumadin therapy V58.83 ; Vertigo as late effect of stroke 438.85 ; Generalized anxiety disorder 300.02 and GERD (gastroesophageal reflux disease) 530.81 IMMUNIZATIONS No Known Immunizations SOCIAL HISTORY Never Assessed REASON FOR VISIT multi te PLAN OF CARE Activity Details Follow Up prn Reason:TE 17 VITAL SIGNS Height 73 in 2016-12-26 Blood pressure systolic 124 mmHg 2016-12-26 Blood pressure diastolic 81 mmHg 2016-12-26 MEDICATIONS Medication Instructions Dosage Frequency Start Date End Date Duration Status Metoprolol Succinate ER 50 MG Orally 2 times a day 1 tablet 12h Active Praluent 150 MG/ML Subcutaneous every 2 weeks 1 ml Active Tylenol Active Isosorbide Mononitrate ER 60 MG TAKE 1 TABLET BY MOUTH ONCE DAILY Active Plavix 75 MG Orally Once a day 1 tablet 24h Active Amlodipine Besylate 5 MG Orally Once a day 1 tablet 24h Active Duloxetine HCl 60 mg Orally Twice a day 1 capsule ( 30mg cap) 12h 17 Aug, 2016 Active Ranexa 1000 MG Orally Twice a day 1 tablet 12h Active Meclizine HCl 25 Orally 4 times a day 1 tablet as needed 6h 30 days Active Baclofen 20 TAKE 1 TABLET BY MOUTH THREE TIMES DAILY WITH FOOD OR MILK 30 Active Trazodone HCl 50 MG Orally Once a day 1 - 2 tablet at bedtime as needed 24h Active Ventolin HFA 108 (90 Base) MCG/ACT Inhalation every 6 hrs 2 puffs as needed 6h Active Pantoprazole Sodium 40 mg Orally Once a day 1 tablet 24h 03 Jun, 2016 90 days Active Atorvastatin Calcium 80 MG Orally Once a day 1 tablet 24h Active Xarelto 20 MG Orally Once a day 1 tablet with food 24h 30 Active Duloxetine HCl 60 mg Orally Once a day 2 capsules 24h Active Effient 10 MG Orally Once a day 1 tablet 24h Active Nitrostat 0.4 MG Sublingual q5 min max 3 doses in 15 min as needed for angina 1 tablet Active Promethazine HCl 50 MG Orally every 6 hrs 0.5 tablet as needed for nausea 6h Jun, Active Zetia 10 MG Orally Once a day 1 tablet 24h Active Combivent Respimat 20-100 MCG/ACT Inhalation Four times a day 1 puff 6h 30 days Active RESULTS No Results PROCEDURES Procedure Date Ordered Result Body Site INTRAORL-PERIAPICAL 1 FILM 94253 December 26, 2016 EXTRAC ERUPTED TOOTH/EXPOSED ROOT December 26, 2016 EXTRAC ERUPTED TOOTH/EXPOSED ROOT December 26, 2016 EXTRAC ERUPTED TOOTH/EXPOSED ROOT December 26, 2016 INSTRUCTIONS MEDICATIONS ADMINISTERED No Known Medications MEDICAL [...] 02/2017 Hospitalization History For surgeries Hospitalization History [facility] in his 20's
--- OUTSIDE RECORDS SUMMARY | 2018-02-06 11:13 | XMS REPORT ---
Author Author CHANTELL RAMIREZ Organization [facility] Address [address] [place] [address] Care Team Providers Care Media Producer Name Role Phone JAMESCHANTELL Unavailable PROBLEMS Type Condition ICD9-CM Code OSP20-FM Code Onset Dates Condition Status SNOMED Code Problem History of stroke Z86.73 Active 198817483 Problem S/P CABG x 5 Z95.1 Active 653889280 Problem Anemia D64.9 Active 416969347 Problem Post traumatic stress disorder (PTSD) F43.10 Active 18934444 Problem Essential hypertension I10 Active 89569256 Problem Panic attack F41.0 Active 101180795 Problem Sciatica, unspecified side M54.30 Active 39729418 Problem Generalized anxiety disorder F41.1 Active 07003588 Problem Sciatica of left side M54.32 Active 19315429 Problem Intractable migraine without aura and with status migrainosus G43.011 Active 846137867 Problem Cannabis abuse F12.10 Active 53371099 Problem 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 Active 11086118 Problem Hyperlipidemia, unspecified E78.5 Active 70262762 Problem 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 Active 30357449 Problem Chronic obstructive pulmonary disease, unspecified J44.9 Active 05183060 Problem Hepatic steatosis K76.0 Active 387245732 Problem Other elevated white blood cell count D72.828 Active 880725990 Problem Mixed obsessional thoughts and acts F42.2 Active 12674178 Problem Diarrhea, unspecified type R19.7 Active 68221376 Problem Depression F32.9 Active 87936124 Problem GERD (gastroesophageal reflux disease) K21.9 Active 883065219 Problem Hyperplastic colonic polyp, unspecified part of colon K63.5 Active 246896106 Problem Anticoagulant long-term use Z79.01 Active 030466838 Problem Prediabetes R73.03 Active 997282190 Problem Vertigo R42 Active 254660664 Problem Paroxysmal atrial fibrillation I48.0 Active 285012763 Problem 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0 and Coronary artery disease of bypass graft of mo[place] heart with stable 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 [place] [address] [address] Oct, Chronic obstructive pulmonary disease, unspecified J44.9 [place] [address] [address] Sep, 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 ; Mixed obsessional thoughts and acts F42.2 and Cannabis abuse F12.10 [place] [id number] [place] [address] 1983 Aug, 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 ; Mixed obsessional thoughts and acts F42.2 and Cannabis abuse F12.10 [place] [id number] [place] [address] 67[address]- [address] Aug, 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 and Mixed obsessional thoughts and acts F42.2 [place] [address] [address] Jul, 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 and Mixed obsessional thoughts and acts F42.2 [place] [address] [address] Jul, 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 and Mixed obsessional thoughts and acts F42.2 [place] [id number] [place] [address] 11972- 9255 Jul, 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 ; Mixed obsessional thoughts and acts F42.2 and Cannabis abuse F12.10 [place] [id number] [place] [address] 69794- 58[address] Jun, 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 ; Mixed obsessional thoughts and acts F42.2 and Cannabis abuse F12.10 [place] [id number] [place] [address] 60[address]- 25[address] Jun, [place] [id number] [place] [address] 36934- 2474 Jun, 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 ; Mixed obsessional thoughts and acts F42.2 and Cannabis abuse F12.10 [place] [id number] [place] [address] 46862- 6[address] May, 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 ; Mixed obsessional thoughts and acts F42.2 and Cannabis abuse F12.10 [place] [id number] [place] [address] 28151- 0[address] May, 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 [place] [id number] [place] [address] 39208- 1046 Mar, [place] [id number] [place] [address] 60265- 0[address] Mar, Chronic combined systolic (congestive) and diastolic ( congestive) heart failure I50.42 ; Diarrhea, unspecified type R19.7 ; Hepatic steatosis K76.0 and Generalized postprandial abdominal pain R10.84 [place] [id number] [place] [address] 76451- 57[address] Jan, Generalized abdominal pain R10.84 [place] [address] [address]- [address] Jan, Generalized abdominal pain R10.84 ; Generalized postprandial abdominal pain R10.84 ; Diarrhea, unspecified type R19.7 ; Non- intractable vomiting with nausea, unspecified vomiting type R11.2 ; GERD ( gastroesophageal reflux disease) K21.9 ; S/P CABG x 5 Z95.1 ; Prominent abdominal aortic pulsation R09.89 and Other elevated white blood cell count D72.828 [place] [address] [address] Jan, Vertigo R42 [place] [address] [place] [address]- [address] Jan, Other elevated white blood cell count D72.828 [place] [address] [address]- [address] Jan, Other elevated white blood cell count D72.828 [place] [address] 8[address]- [address] Jan, Hyperlipidemia, unspecified E78.5 ; Sciatica of left side M54.32 ; Weight loss R63.4 and Night sweats R61 [facility] [address] [id number] December, Dental caries K02.9 and Dental examination Z01.20 [place] [id number] [place] [address] 6[address]- 39[address] Oct, Vertigo R42 ; Nausea R11.0 ; Chronic obstructive pulmonary disease, unspecified J44.9 ; GERD (gastroesophageal reflux disease) K21.9 ; S/P CABG x 5 Z95.1 ; Hyperlipidemia, unspecified E78.5 ; Essential hypertension I10 ; Paroxysmal atrial fibrillation I48.0 and Depression F32.9 [place] [id number] [place] [address] 23976- 26[address] Oct, [facility] [id number] [place] [address] 08294- 3420 Oct, Hyperlipidemia, unspecified E78.5 [facility] [id number] [place] [address] 76987- 37[address] 16 Oct, 2016 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 [facility] [id number] [place] [id number] Oct, Vertigo R42 [facility] [address] 841480- [address] Oct, [facility] [address] 135097- [address] Sep, [facility] [address] 112490- 4026 Aug, 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 [place] [address] [address] 05 Jul, 2016 Depression F32.9 ; Generalized anxiety disorder F41.1 and Panic attack F41.0 [facility] [address] [id number] 02 Jul, 2016 Dental examination Z01.20 [facility] [address] [address]- [address] 30 Jun, 2016 [facility] [id number] [place] [address] 88529- 6740 30 Jun, 2016 Encounter for dental examination and cleaning without abnormal findings Z01.20 [facility] [id number] [place] [address] 76980- 8387 15 Jun, 2016 Intractable migraine without aura and with status migrainosus G43.011 ; Coronary artery disease of bypass graft of mo[place] heart with stable 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 ; B12 deficiency E53.8 and Depression F32.9 [facility] [id number] [place] [address] 31664- 0430 15 Jun, 2016 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 [facility] [id number] [place] [address] 58819- 3433 Jun, Depression F32.9 ; Generalized anxiety disorder F41.1 ; Post traumatic stress disorder (PTSD) F43.10 and Panic attack F41.[address] [address] Jun, [place] [address] 139[address]- [address] Jun, [place] [address] [address]71[address] 0691 May, [address] [address] May, Elevated glucose R73.09 ; Depression F32.9 ; Hyperlipidemia , unspecified E78.5 ; Prediabetes R73.03 ; B12 deficiency E53.8 ; Vertigo R42 ; Seborrheic keratosis L82.1 ; Chronic obstructive pulmonary disease, unspecified J44.9 and Blurry vision H53.8 [place] [id number] [place] [address] 82507- [address]121 Apr, [address] [address]- [address] Jan, Elevated glucose R73.09 ; Anemia D64.9 and Weakness generalized R53.1 [place] [id number] [place] [address] 31316- 6899 Jan, [address] [address] Jan, [place] [id number] [place] [address] 85002- 1348 December, Sciatica, left side M54.32 [place] [id number] [place] [address] 81474- 1336 Nov, Sciatica, unspecified side M54.30 ; Chronic obstructive pulmonary disease, unspecified J44.9 ; GERD (gastroesophageal reflux disease) K21.9 ; Coronary artery disease of bypass graft of mo[place] heart with stable 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 and Pre-syncope R55 [place] [address] 00962- 9759 Sep, [place] [address] 46224- 7[address] Aug, Coumadin toxicity, accidental or unintentional, subsequent encounter T60.4X1D [place] [address] 09151- 5163 Aug, [place] [address] [address]73- 2015 Aug, Coumadin toxicity, accidental or unintentional, subsequent encounter T60.4X1D ; Atherosclerosis of coronary artery bypass graft(s) without angina pectoris I25.810 and History of stroke Z86.73 [facility] [address] [address] Aug, Ear canal abrasion, left, initial encounter S00.412A and Anticoagulant long-term use Z79.01 [place] [address] 68983- 2080 Jul, [place] [address] 30807[address] 2638 Jul, Anticoagulant long-term use Z79.01 ; Polyarthralgia M25.50 ; Sciatica, left M54.32 ; Costochondritis M94.0 ; COPD exacerbation J44.1 and Depression F32.9 [place] [id number] [place] [address] 78011- 6243 May, [place] [address] 9[address]- [address]226 Apr, Hyperlipidemia 272.4 ; Coronary artery disease 414.00 ; History of stroke V12.54 ; COPD (chronic obstructive pulmonary disease) 496 ; Hypertension 401.9 ; Sciatica 724.3 ; Encounter for monitoring coumadin therapy V58.83 ; Vertigo as late effect of stroke 438.85 ; Generalized anxiety disorder 300.02 and GERD (gastroesophageal reflux disease) 530.81 IMMUNIZATIONS No Known Immunizations SOCIAL HISTORY Never Assessed REASON FOR VISIT f/u PLAN OF CARE Activity Details Follow Up 1 Week Reason: f/u VITAL SIGNS Height 73 in 2017-07-04 Weight 278.2 lbs 2017-07-04 Respiratory Rate 20 2017-07-04 BMI 36.70 kg/m2 2017-07-04 MEDICATIONS Medication Instructions Dosage Frequency Start Date End Date Duration Status Combivent Respimat 20-100 MCG/ACT Inhalation Four times a day 1 puff 6h 30 days Active Metoprolol Succinate ER 50 MG Orally 2 times a day 1 tablet 12h Active Dicyclomine HCl 20 mg Orally Four times a day as needed 1 tablet Active BusPIRone HCl 10 mg Orally Twice a day 2 tablets 12h 30 days Active Promethazine HCl 50 MG Orally every 6 hrs 0.5 tablet as needed for nausea 6h 15 Jun, 2016 Active Xarelto 20 MG Orally Once a day 1 tablet with food 24h 30 Active Meclizine HCl 25 TAKE 1 TABLET BY MOUTH FOUR TIMES DAILY NEEDED FOR VERTIGO 30 Active Zetia 10 MG Orally Once a day 1 tablet 24h Active Ranexa 1000 MG Orally Twice a day 1 tablet 12h Active Symbicort Not-Taking Plavix 75 MG Orally Once a day 1 tablet 24h Active Abilify 2 MG Orally Once a day 1 tablet 24h 30 Jun, 2017 30 day(s) Active Atorvastatin Calcium 80 MG Orally Once a day 1 tablet 24h 90 Active Nitrostat 0.4 MG Sublingual q5 min max 3 doses in 15 min as needed for angina 1 tablet Not-Taking Baclofen 20 TAKE 1 TABLET BY MOUTH THREE TIMES DAILY WITH FOOD OR MILK 30 Active Pantoprazole Sodium 40 mg Orally Once a day 1 tablet 24h Jun, 90 days Active Tylenol Not-Taking Duloxetine HCl 60 mg Orally Once a day 2 capsule 24h Active Isosorbide Mononitrate ER 60 MG Orally Once a day 1 tablet in the morning 24h 90 days Active Praluent 150 MG/ML Subcutaneous every 2 weeks 1 ml Not-Taking Amlodipine Besylate 5 MG Orally Once a day 1 tablet 24h Active Trazodone HCl 50 MG Orally Once a day 1 - 2 tablet at bedtime as needed 24h Active Effient 10 MG Orally Once a day 1 tablet 24h Active Ventolin HFA 108 (90 Base) MCG/ACT Inhalation every 6 hrs 2 puffs as needed 6h Not-Taking RESULTS No Results PROCEDURES Procedure Date Ordered Result Body Site [facility] VISIT ESTABLISHED PATIENT Jul 04, 2017 INSTRUCTIONS MEDICATIONS ADMINISTERED No Known Medications [...] 02/2017 Hospitalization History For surgeries Hospitalization History [facility] in his 20's
--- OUTSIDE RECORDS SUMMARY | 2018-02-06 11:14 | XMS REPORT ---
Author Author [facility]ORCAS PERRY [facility] Address [address] [place] [address] Care Team Providers Care Tank Washer Name Role Phone DORCAS PERRY Unavailable PROBLEMS Type Condition ICD9-CM Code DBE04-US Code Onset Dates Condition Status SNOMED Code Problem History of stroke Z86.73 Active 343045492 Problem S/P CABG x 5 Z95.1 Active 149767420 Problem Anemia D64.9 Active 307001134 Problem Post traumatic stress disorder (PTSD) F43.10 Active 92238189 Problem Essential hypertension I10 Active 32122023 Problem Panic attack F41.0 Active 487967170 Problem Sciatica, unspecified side M54.30 Active 80741661 Problem Generalized anxiety disorder F41.1 Active 56771895 Problem Sciatica of left side M54.32 Active 69972196 Problem Intractable migraine without aura and with status migrainosus G43.011 Active 078475743 Problem Cannabis abuse F12.10 Active 21998648 Problem 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 Active 09251704 Problem Hyperlipidemia, unspecified E78.5 Active 32688878 Problem 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 Active 84287966 Problem Chronic obstructive pulmonary disease, unspecified J44.9 Active 13911000 Problem Hepatic steatosis K76.0 Active 055077932 Problem Other elevated white blood cell count D72.828 Active 901404546 Problem Mixed obsessional thoughts and acts F42.2 Active 32598465 Problem Diarrhea, unspecified type R19.7 Active 90999998 Problem Depression F32.9 Active 28323220 Problem GERD (gastroesophageal reflux disease) K21.9 Active 767104552 Problem Hyperplastic colonic polyp, unspecified part of colon K63.5 Active 610239169 Problem Anticoagulant long-term use Z79.01 Active 462162282 Problem Prediabetes R73.03 Active 550886683 Problem Vertigo R42 Active 606925229 Problem Paroxysmal atrial fibrillation I48.0 Active 471330616 Problem Coronary artery disease of bypass graft of little traverse heart with stable 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 Active 970202817 ALLERGIES No Information ENCOUNTERS Encounter Location Date Diagnosis [place] [id number] [place] [address] 18774- 5707 Nov, Chronic combined systolic (congestive) and diastolic ( congestive) heart failure I50.42 ; Chronic obstructive pulmonary disease, unspecified J44.9 ; Essential hypertension I10 ; Hyperlipidemia, unspecified E78.5 ; Anticoagulant long-term use Z79.01 ; Depression F32.9 ; Paroxysmal atrial fibrillation I48.0 and Coronary artery disease of bypass graft of little traverse heart with stable 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 [place] [id number] [place] [address] 44549- 6267 Oct, Chronic obstructive pulmonary disease, unspecified J44.9 [place] [address] 00045- 4475 Sep, 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 ; Mixed obsessional thoughts and acts F42.2 and Cannabis abuse F12.10 [place] [id number] [place] [address] 17632- 0590 Aug, 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 ; Mixed obsessional thoughts and acts F42.2 and Cannabis abuse F12.10 [place] [id number] [place] [address] 48704- 4626 Aug, 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 and Mixed obsessional thoughts and acts F42.2 [place] [id number] [place] [address] 93115- 1811 Jul, 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 and Mixed obsessional thoughts and acts F42.2 [place] [id number] [place] [address] 95345- 5285 Jul, 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 and Mixed obsessional thoughts and acts F42.2 [place] [address] [place] [address] 49100- 4619 Jul, 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 ; Mixed obsessional thoughts and acts F42.2 and Cannabis abuse F12.10 [place] [id number] [place] [address] 59734- 1354 Jun, 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 ; Mixed obsessional thoughts and acts F42.2 and Cannabis abuse F12.10 [place] [id number] [place] [address] 50556- 4551 Jun, [place] [id number] [place] [address] 35015- 7199 Jun, 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 ; Mixed obsessional thoughts and acts F42.2 and Cannabis abuse F12.10 [place] [id number] [place] [address] 90253- 8322 May, 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 ; Mixed obsessional thoughts and acts F42.2 and Cannabis abuse F12.10 [place] [id number] [place] [address] 23753- 5427 May, 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 [place] [id number] [place] [address] 93405- 6477 Mar, [place] [id number] [place] [address] 43480- 4730 Mar, Chronic combined systolic (congestive) and diastolic ( congestive) heart failure I50.42 ; Diarrhea, unspecified type R19.7 ; Hepatic steatosis K76.0 and Generalized postprandial abdominal pain R10.84 [place] [id number] [place] [address] 30815- 5912 Jan, Generalized abdominal pain R10.84 [place] [id number] [place] [address] 27769- 7368 Jan, Generalized abdominal pain R10.84 ; Generalized postprandial abdominal pain R10.84 ; Diarrhea, unspecified type R19.7 ; Non- intractable vomiting with nausea, unspecified vomiting type R11.2 ; GERD ( gastroesophageal reflux disease) K21.9 ; S/P CABG x 5 Z95.1 ; Prominent abdominal aortic pulsation R09.89 and Other elevated white blood cell count D72.828 [place] [id number] [place] [address] 23771- 5645 Jan, Vertigo R42 [place] [id number] [place] [address] 14507- 2485 Jan, Other elevated white blood cell count D72.828 [place] [address] 57139- 8545 Jan, Other elevated white blood cell count D72.828 [place] [id number] [place] [address] 93486- 6048 Jan, Hyperlipidemia, unspecified E78.5 ; Sciatica of left side M54.32 ; Weight loss R63.4 and Night sweats R61 [facility] [id number] [place] [address] [id number] December, Dental caries K02.9 and Dental examination Z01.20 [place] [id number] [place] [address] 40034- 8527 Oct, Vertigo R42 ; Nausea R11.0 ; Chronic obstructive pulmonary disease, unspecified J44.9 ; GERD (gastroesophageal reflux disease) K21.9 ; S/P CABG x 5 Z95.1 ; Hyperlipidemia, unspecified E78.5 ; Essential hypertension I10 ; Paroxysmal atrial fibrillation I48.0 and Depression F32.9 [place] [id number] [place] [address] 27138- 3819 Oct, [place] [id number] [place] [address] 53023- 8305 Oct, Hyperlipidemia, unspecified E78.5 [place] [id number] [place] [address] 99072- 7253 16 Oct, 2016 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 [facility] [address] [place] [address] 57973- 4345 15 Oct, 2016 Vertigo R42 [facility] [id number] [place] [address] 99300- 4734 03 Oct, 2016 [facility] [id number] [place] [address] 75245- 6723 Sep, [facility] [id number] [place] [address] 82938- 9025 Aug, 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 [address] [id number] 02 Jul, 2016 Dental examination Z01.20 [facility] [id number] [place] [address] 24268- 1624 30 Jun, 2016 [facility] [id number] [place] [address] 77011- 0142 30 Jun, 2016 Encounter for dental examination and cleaning without abnormal findings Z01.20 [facility] [id number] [place] [address] 44432- 1973 15 Jun, 2016 Intractable migraine without aura and with status migrainosus G43.011 ; Coronary artery disease of bypass graft of little traverse heart with stable 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 ; B12 deficiency E53.8 and Depression F32.9 [facility] [id number] [place] [address] 44361- 4980 15 Jun, 2016 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 [facility] [address] [place] [address] 96439- 5188 14 Jun, 2016 Depression F32.9 ; Generalized anxiety disorder F41.1 ; Post traumatic stress disorder (PTSD) F43.10 and Panic attack F41.[address] 99227- 1635 Jun, [place] [address]- 7051 Jun, [address] 77834- 6364 May, [address] 48418- 3801 May, Elevated glucose R73.09 ; Depression F32.9 ; Hyperlipidemia , unspecified E78.5 ; Prediabetes R73.03 ; B12 deficiency E53.8 ; Vertigo R42 ; Seborrheic keratosis L82.1 ; Chronic obstructive pulmonary disease, unspecified J44.9 and Blurry vision H53.[address] 10114- 1612 Apr, [address] 15857- 2212 Jan, Elevated glucose R73.09 ; Anemia D64.9 and Weakness generalized R53.[address] 56297- 0295 Jan, [address] 60236- 1676 Jan, [address] 32298- 5454 December, Sciatica, left side M54.[address] 49646- 8604 Nov, Sciatica, unspecified side M54.30 ; Chronic obstructive pulmonary disease, unspecified J44.9 ; GERD (gastroesophageal reflux disease) K21.9 ; Coronary artery disease of bypass graft of little traverse heart with stable 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 and Pre-syncope R55 [place] [id number] [place] [address] 83500- 0034 Sep, [place] [address] 93070- 8385 Aug, Coumadin toxicity, accidental or unintentional, subsequent encounter T60.4X1D [place] [id number] [place] [address] 20090- 0595 Aug, [place] [address] 03932- 0365 Aug, Coumadin toxicity, accidental or unintentional, subsequent encounter T60.4X1D ; Atherosclerosis of coronary artery bypass graft(s) without angina pectoris I25.810 and History of stroke Z86.73 [facility] [id number] [place] [address] 39882 -1760 Aug, Ear canal abrasion, left, initial encounter S00.412A and Anticoagulant long-term use Z79.01 [place] [id number] [place] [address] 56445- 1701 Jul, [address] 62734- 3787 Jul, Anticoagulant long-term use Z79.01 ; Polyarthralgia M25.50 ; Sciatica, left M54.32 ; Costochondritis M94.0 ; COPD exacerbation J44.1 and Depression F32.9 [place] [id number] [place] [address] 77570- 7221 May, [place] [id number] [place] [address] 93790- 9140 Apr, Hyperlipidemia 272.4 ; Coronary artery disease 414.00 ; History of stroke V12.54 ; COPD (chronic obstructive pulmonary disease) 496 ; Hypertension 401.9 ; Sciatica 724.3 ; Encounter for monitoring coumadin therapy V58.83 ; Vertigo as late effect of stroke 438.85 ; Generalized anxiety disorder 300.02 and GERD (gastroesophageal reflux disease) 530.81 IMMUNIZATIONS No Known Immunizations SOCIAL HISTORY Never Assessed REASON FOR VISIT med refill to appt date PLAN OF CARE VITAL SIGNS MEDICATIONS Medication Instructions Dosage Frequency Start Date End Date Duration Status Duloxetine HCl 60 mg Orally Once a day 2 capsule 24h Aug, 7 days Active RESULTS No Results PROCEDURES No [...] 02/2017 Hospitalization History For surgeries Hospitalization History [facility] in his 20's
--- OUTSIDE RECORDS SUMMARY | 2018-02-06 11:14 | XMS REPORT ---
Author Author CHANTELL RAMIREZ Organization [facility] Address [address] [place] [address] Care Team Providers Care Mixer Runner Name Role Phone JAMESCHANTELL Unavailable PROBLEMS Type Condition ICD9-CM Code HUI82-EG Code Onset Dates Condition Status SNOMED Code Problem History of stroke Z86.73 Active 548324270 Problem S/P CABG x 5 Z95.1 Active 838799655 Problem Anemia D64.9 Active 966446786 Problem Post traumatic stress disorder (PTSD) F43.10 Active 79639904 Problem Essential hypertension I10 Active 40199516 Problem Panic attack F41.0 Active 520600049 Problem Sciatica, unspecified side M54.30 Active 26306066 Problem Generalized anxiety disorder F41.1 Active 04826067 Problem Sciatica of left side M54.32 Active 57052600 Problem Intractable migraine without aura and with status migrainosus G43.011 Active 210634492 Problem Cannabis abuse F12.10 Active 80768779 Problem 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 Active 12297410 Problem Hyperlipidemia, unspecified E78.5 Active 11692359 Problem 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 Active 77012236 Problem Chronic obstructive pulmonary disease, unspecified J44.9 Active 99344177 Problem Hepatic steatosis K76.0 Active 731655643 Problem Other elevated white blood cell count D72.828 Active 570621143 Problem Mixed obsessional thoughts and acts F42.2 Active 10169619 Problem Diarrhea, unspecified type R19.7 Active 73654031 Problem Depression F32.9 Active 55372735 Problem GERD (gastroesophageal reflux disease) K21.9 Active 408447186 Problem Hyperplastic colonic polyp, unspecified part of colon K63.5 Active 039944589 Problem Anticoagulant long-term use Z79.01 Active 037513900 Problem Prediabetes R73.03 Active 505251742 Problem Vertigo R42 Active 015139329 Problem Paroxysmal atrial fibrillation I48.0 Active 335178249 Problem 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 Active 462500241 ALLERGIES No Information ENCOUNTERS Encounter Location Date Diagnosis [place] [id number] [place] [address] 28641- 8320 Nov, Chronic combined systolic (congestive) and diastolic ( congestive) heart failure I50.42 ; Chronic obstructive pulmonary disease, unspecified J44.9 ; Essential hypertension I10 ; Hyperlipidemia, unspecified E78.5 ; Anticoagulant long-term use Z79.01 ; Depression F32.9 ; Paroxysmal atrial fibrillation I48.0 and 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 [place] [id number] [place] [address] 64030- 2850 Oct, Chronic obstructive pulmonary disease, unspecified J44.9 [place] [address] 29962- 0464 Sep, 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 ; Mixed obsessional thoughts and acts F42.2 and Cannabis abuse F12.10 [place] [id number] [place] [address] 99178- 5049 Aug, 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 ; Mixed obsessional thoughts and acts F42.2 and Cannabis abuse F12.10 [place] [id number] [place] [address] 45038- 8084 Aug, 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 and Mixed obsessional thoughts and acts F42.2 [place] [id number] [place] [address] 63032- 8050 Jul, 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 and Mixed obsessional thoughts and acts F42.2 [place] [address] 72897- 7364 Jul, 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 and Mixed obsessional thoughts and acts F42.2 [place] [address] [address]- 75[address] Jul, 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 ; Mixed obsessional thoughts and acts F42.2 and Cannabis abuse F12.10 [place] [id number] [place] [address] 94365- 3985 Jun, 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 ; Mixed obsessional thoughts and acts F42.2 and Cannabis abuse F12.10 [place] [id number] [place] [address] 64270- 4931 Jun, [place] [id number] [place] [address] 34676- 1024 Jun, 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 ; Mixed obsessional thoughts and acts F42.2 and Cannabis abuse F12.10 [place] [id number] [place] [address] 89738- 7861 May, 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 ; Mixed obsessional thoughts and acts F42.2 and Cannabis abuse F12.10 [place] [id number] [place] [address] 33703- 6626 May, 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 [place] [id number] [place] [address] 82775- 1212 Mar, [place] [id number] [place] [address] 24821- 2565 Mar, Chronic combined systolic (congestive) and diastolic ( congestive) heart failure I50.42 ; Diarrhea, unspecified type R19.7 ; Hepatic steatosis K76.0 and Generalized postprandial abdominal pain R10.84 [place] [id number] [place] [address] 77945- 6068 Jan, Generalized abdominal pain R10.84 [place] [id number] [place] [address] 40558- 1680 Jan, Generalized abdominal pain R10.84 ; Generalized postprandial abdominal pain R10.84 ; Diarrhea, unspecified type R19.7 ; Non- intractable vomiting with nausea, unspecified vomiting type R11.2 ; GERD ( gastroesophageal reflux disease) K21.9 ; S/P CABG x 5 Z95.1 ; Prominent abdominal aortic pulsation R09.89 and Other elevated white blood cell count D72.828 [place] [id number] [place] [address] 37078- 8259 Jan, Vertigo R42 [place] [address] 60448- 8883 Jan, Other elevated white blood cell count D72.828 [place] [address] 07251- 0672 Jan, Other elevated white blood cell count D72.828 [place] [address] 99430- 3046 Jan, Hyperlipidemia, unspecified E78.5 ; Sciatica of left side M54.32 ; Weight loss R63.4 and Night sweats R61 [facility] [address] [id number] December, Dental caries K02.9 and Dental examination Z01.20 [place] [id number] [place] [address] 23419- 5026 Oct, Vertigo R42 ; Nausea R11.0 ; Chronic obstructive pulmonary disease, unspecified J44.9 ; GERD (gastroesophageal reflux disease) K21.9 ; S/P CABG x 5 Z95.1 ; Hyperlipidemia, unspecified E78.5 ; Essential hypertension I10 ; Paroxysmal atrial fibrillation I48.0 and Depression F32.9 [place] [address] 37917- 9154 Oct, [place] [address] 72344- 3338 Oct, Hyperlipidemia, unspecified E78.5 [place] [address] 81906- 6046 16 Oct, 2016 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 [facility] [address] [place] [address] 30927- 3115 Oct, Vertigo R42 [facility] [id number] [place] [address] 62556- 4916 03 Oct, 2016 [facility] [id number] [place] [address] 49961- 7611 Sep, [facility] [id number] [place] [address] 53725- 6546 Aug, 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 [place] [id number] [place] [address] 01696- 8295 05 Jul, 2016 Depression F32.9 ; Generalized anxiety disorder F41.1 and Panic attack F41.0 [facility] [id number] [place] [address] [id number] 02 Jul, 2016 Dental examination Z01.20 [facility] [id number] [place] [address] 16841- 3633 30 Jun, 2016 [facility] [id number] [place] [address] 61292- 1891 30 Jun, 2016 Encounter for dental examination and cleaning without abnormal findings Z01.20 [place] [id number] [place] [address] 15785- 0336 15 Jun, 2016 Intractable migraine without aura and with status migrainosus G43.011 ; 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 ; B12 deficiency E53.8 and Depression F32.9 [facility] [id number] [place] [address] 94979- 5137 15 Jun, 2016 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 [facility] [address] [place] [address] 42949- 9815 14 Jun, 2016 Depression F32.9 ; Generalized anxiety disorder F41.1 ; Post traumatic stress disorder (PTSD) F43.10 and Panic attack F41.[address] 98316- 0827 Jun, [place] [address]2470- 0751 Jun, [address] 61067- 1444 May, [place] [address]39735- 5465 May, Elevated glucose R73.09 ; Depression F32.9 ; Hyperlipidemia , unspecified E78.5 ; Prediabetes R73.03 ; B12 deficiency E53.8 ; Vertigo R42 ; Seborrheic keratosis L82.1 ; Chronic obstructive pulmonary disease, unspecified J44.9 and Blurry vision H53.[address] 97580- 0511 Apr, [address] 99937- 3459 Jan, Elevated glucose R73.09 ; Anemia D64.9 and Weakness generalized R53.[address] 81689- 3295 Jan, [address] 51681- 5245 Jan, [address] 37538- 5237 December, Sciatica, left side M54.32 [place] [id number]- 8744 Nov, Sciatica, unspecified side M54.30 ; Chronic obstructive pulmonary disease, unspecified J44.9 ; GERD (gastroesophageal reflux disease) K21.9 ; 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 and Pre-syncope R55 [address] [id number] [place] [address] 02933- 2034 Sep, [place] [address] 23844- 6763 Aug, Coumadin toxicity, accidental or unintentional, subsequent encounter T60.4X1D [place] [address] 49096- 9750 Aug, [place] [address] 98665- 6054 Aug, Coumadin toxicity, accidental or unintentional, subsequent encounter T60.4X1D ; Atherosclerosis of coronary artery bypass graft(s) without angina pectoris I25.810 and History of stroke Z86.73 [facility] [id number] [place] [address] 54183 -9056 Aug, Ear canal abrasion, left, initial encounter S00.412A and Anticoagulant long-term use Z79.01 [place] [id number] [place] [address] 64642- 3043 Jul, [address] 59163- 6342 Jul, Anticoagulant long-term use Z79.01 ; Polyarthralgia M25.50 ; Sciatica, left M54.32 ; Costochondritis M94.0 ; COPD exacerbation J44.1 and Depression F32.[address] 63778- 2093 May, [place] [address] 50604- 9618 Apr, Hyperlipidemia 272.4 ; Coronary artery disease [...] HISTORY Never Assessed REASON FOR VISIT Depression PLAN OF CARE VITAL SIGNS MEDICATIONS No Known Medications RESULTS No Results PROCEDURES No Known [...] Depression Surgical History coronary artery bypass graft 2009 Surgical History angioplasty Surgical History cardiac stent x 6 Surgical History Colonoscopy and EGD 02/2017 Hospitalization History For surgeries Hospitalization History [facility] in his 20's
--- OUTSIDE RECORDS SUMMARY | 2018-02-06 11:14 | XMS REPORT ---
Author Author ROJAS JUNIOR [facility] Address [address] [place] [address] Care Team Providers Care Ice Cream Scooper Name Role Phone ROJASLYRIC COLMENARESHANY Unavailable PROBLEMS Type Condition ICD9-CM Code [id number] Code Onset Dates Condition Status SNOMED Code Problem History of stroke Z86.73 Active 283354568 Problem S/P CABG x 5 Z95.1 Active 437094771 Problem Anemia D64.9 Active 947465003 Problem Post traumatic stress disorder (PTSD) F43.10 Active 08503915 Problem Essential hypertension I10 Active 19048047 Problem Panic attack F41.0 Active 287570683 Problem Sciatica, unspecified side M54.30 Active 04760412 Problem Generalized anxiety disorder F41.1 Active 98576781 Problem Sciatica of left side M54.32 Active 33411782 Problem Intractable migraine without aura and with status migrainosus G43.011 Active 753529032 Problem Cannabis abuse F12.10 Active 51997872 Problem 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 Active 12531527 Problem Hyperlipidemia, unspecified E78.5 Active 87202310 Problem 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 Active 92974091 Problem Chronic obstructive pulmonary disease, unspecified J44.9 Active 31385260 Problem Hepatic steatosis K76.0 Active 303257870 Problem Other elevated white blood cell count D72.828 Active 150930023 Problem Mixed obsessional thoughts and acts F42.2 Active 80363472 Problem Diarrhea, unspecified type R19.7 Active 31399385 Problem Depression F32.9 Active 28328710 Problem GERD (gastroesophageal reflux disease) K21.9 Active 314489062 Problem Hyperplastic colonic polyp, unspecified part of colon K63.5 Active 347049371 Problem Anticoagulant long-term use Z79.01 Active 947204603 Problem Prediabetes R73.03 Active 633997505 Problem Vertigo R42 Active 357667793 Problem Paroxysmal atrial fibrillation I48.0 Active 320275085 Problem Coronary artery disease of bypass graft of [place] heart with stable 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 Active 638143395 ALLERGIES No Information ENCOUNTERS Encounter Location Date Diagnosis [place] [id number] [place] [address] 68053- 8019 Nov, [place] [address] [place] [id number] [place] [address] 52173- 4395 Nov, [place] [address] [place] [id number] [place] [address] 22034- 7803 Sep, 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 ; Mixed obsessional thoughts and acts F42.2 and Cannabis abuse F12.10 [place] [address] [place] [id number] [place] [address] 12181- 9877 Aug, 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 ; Mixed obsessional thoughts and acts F42.2 and Cannabis abuse F12.10 [place] [address] [place] [id number] [place] [address] 95638- 3216 Aug, 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 and Mixed obsessional thoughts and acts F42.2 [place] [address] [place] [id number] [place] [address] 21759- 3021 Jul, 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 and Mixed obsessional thoughts and acts F42.2 [place] [id number] [place] [address] 60532- 5210 Jul, 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 and Mixed obsessional thoughts and acts F42.2 [place] [address] [place] [id number] [place] [address] 75601- 2408 Jul, 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 ; Mixed obsessional thoughts and acts F42.2 and Cannabis abuse F12.10 [place] [id number] [place] [address] 95741- 5554 Jun, 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 ; Mixed obsessional thoughts and acts F42.2 and Cannabis abuse F12.10 [place] [id number] [place] [address] 93411- 4097 Jun, [place] [address] [place] [id number] [place] [address] 99716- 2336 Jun, 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 ; Mixed obsessional thoughts and acts F42.2 and Cannabis abuse F12.10 [place] [address] [place] [id number] [place] [address] 11352- 8713 May, 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 ; Mixed obsessional thoughts and acts F42.2 and Cannabis abuse F12.10 [place] [address] [place] [id number] [place] [address] 41331- 4344 May, 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 [place] [address] [place] [id number] [place] [address] 12885- 5698 Mar, [place] [address] [place] [id number] [place] [address] 35913- 1271 Mar, Chronic combined systolic (congestive) and diastolic ( congestive) heart failure I50.42 ; Diarrhea, unspecified type R19.7 ; Hepatic steatosis K76.0 and Generalized postprandial abdominal pain R10.84 [place] [address] [place] [id number] [place] [address] 95708- 2124 Jan, Generalized abdominal pain R10.84 [place] [address] [place] [id number] [place] [address] 06913- 8568 Jan, Generalized abdominal pain R10.84 ; Generalized postprandial abdominal pain R10.84 ; Diarrhea, unspecified type R19.7 ; Non- intractable vomiting with nausea, unspecified vomiting type R11.2 ; GERD ( gastroesophageal reflux disease) K21.9 ; S/P CABG x 5 Z95.1 ; Prominent abdominal aortic pulsation R09.89 and Other elevated white blood cell count D72.828 [place] [address] [place] [id number] [place] [address] 17439- 1716 Jan, Vertigo R42 [place] [id number] [place] [address] 38155- 3244 Jan, Other elevated white blood cell count D72.828 [place] [address] [place] [id number] [place] [address] 82057- 4580 Jan, Other elevated white blood cell count D72.828 [place] [address] [place] [id number] [place] [address] 32506- 6970 Jan, Hyperlipidemia, unspecified E78.5 ; Sciatica of left side M54.32 ; Weight loss R63.4 and Night sweats R61 [facility] [address] [id number] [place] [address] [id number] December, Dental caries K02.9 and Dental examination Z01.20 [place] [address] [place] [id number] [place] [address] 87301- 1100 Oct, Vertigo R42 ; Nausea R11.0 ; Chronic obstructive pulmonary disease, unspecified J44.9 ; GERD (gastroesophageal reflux disease) K21.9 ; S/P CABG x 5 Z95.1 ; Hyperlipidemia, unspecified E78.5 ; Essential hypertension I10 ; Paroxysmal atrial fibrillation I48.0 and Depression F32.9 [place] [address] [address] Oct, [place] [address] [place] [id number] [place] [address] 12921- 3922 Oct, Hyperlipidemia, unspecified E78.5 [place] [address] [place] [id number] [place] [address] 13690- 3806 Oct, 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 [place] [address] [place] [id number] [place] [address] 18535- 3277 Oct, Vertigo R42 [place] [id number] [place] [address] 03399- 8121 Oct, [place] [address] [place] [id number] [place] [address] 68715- 2132 Sep, [facility] [address] [place] [id number] [place] [address] 56125- 5283 Aug, 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 [facility] [address] [place] [id number] [place] [address] 90746- 4017 05 Jul, 2016 Depression F32.9 ; Generalized anxiety disorder F41.1 and Panic attack F41.0 [facility] [address] [id number] Jul, 2016 Dental examination Z01.20 [place] [address] 16825- 2669 30 Jun, 2016 [place] [address] [place] [id number] [place] [address] 95544- 4954 30 Jun, 2016 Encounter for dental examination and cleaning without abnormal findings Z01.20 [facility] [address] [place] [id number] [place] [address] 62832- 9500 15 Jun, 2016 Intractable migraine without aura and with status migrainosus G43.011 ; Coronary artery disease of bypass graft of [place] with stable 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 ; B12 deficiency E53.8 and Depression F32.9 [place] [address] [place] [id number] [place] [address] 21363- 6022 15 Jun, 2016 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 [facility] [address] [place] [id number] [place] [address] 17980- 5140 14 Jun, 2016 Depression F32.9 ; Generalized anxiety disorder F41.1 ; Post traumatic stress disorder (PTSD) F43.10 and Panic attack F41.0 [facility] [address] [place] [id number] [place] [address] 07544- 6035 04 Jun, 2016 [facility] [address] [place] [id number] [place] [address] 52752- 0824 Jun, [facility] [address] [place] [id number] [place] [address] 86234- 3335 May, [place] [address] [place] [id number] [place] [address] 18231- 6367 May, Elevated glucose R73.09 ; Depression F32.9 ; Hyperlipidemia , unspecified E78.5 ; Prediabetes R73.03 ; B12 deficiency E53.8 ; Vertigo R42 ; Seborrheic keratosis L82.1 ; Chronic obstructive pulmonary disease, unspecified J44.9 and Blurry vision H53.8 [place] [address] 18084- 7088 Apr, [address] 78645- 4117 Jan, Elevated glucose R73.09 ; Anemia D64.9 and Weakness generalized R53.[address] 91183- 9132 Jan, [place] [address] 29440- 3372 Jan, [place] [address] [place] [id number] [place] [address] 18189- 2379 December, Sciatica, left side M54.[address] 96542- 3799 Nov, Sciatica, unspecified side M54.30 ; Chronic obstructive pulmonary disease, unspecified J44.9 ; GERD (gastroesophageal reflux disease) K21.9 ; Coronary artery disease of bypass graft of [place] with stable 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 and Pre-syncope R55 [address] 76203- 7186 Sep, [place] [address] 32452- 1422 Aug, Coumadin toxicity, accidental or unintentional, subsequent encounter T60.4X1D [address] 89277- 5145 Aug, [facility] [address] [id number] [address] 5137 Aug, Coumadin toxicity, accidental or unintentional, subsequent encounter T60.4X1D ; Atherosclerosis of coronary artery bypass graft(s) without angina pectoris I25.810 and History of stroke Z86.73 [facility] [id number] [place] [address] 67746 -5706 Aug, Ear canal abrasion, left, initial encounter S00.412A and Anticoagulant long-term use Z79.01 [facility] [address] [place] [id number] [place] [address] 30958- 1493 Jul, [facility] [address] [place] [id number] [place] [address] 78840- 1827 Jul, Anticoagulant long-term use Z79.01 ; Polyarthralgia M25.50 ; Sciatica, left M54.32 ; Costochondritis M94.0 ; COPD exacerbation J44.1 and Depression F32.9 [facility] [id number] [place] [address] 36340- 0204 May, [facility] [address] [place] [id number] [place] [address] 73743- 6749 Apr, Hyperlipidemia 272.4 ; Coronary artery disease 414.00 ; History of stroke V12.54 ; COPD (chronic obstructive pulmonary disease) 496 ; Hypertension 401.9 ; Sciatica 724.3 ; Encounter for monitoring coumadin therapy V58.83 ; Vertigo as late effect of stroke 438.85 ; Generalized anxiety disorder 300.02 and GERD (gastroesophageal reflux disease) 530.81 IMMUNIZATIONS No Known Immunizations SOCIAL HISTORY Never Assessed REASON FOR VISIT Lab (walk-in)--[facility] PLAN OF CARE VITAL SIGNS MEDICATIONS Unknown Medications RESULTS Name Result Date Reference Range HEMOCCULT (IN HOUSE) 2017-02-01 RESULTS Negative Control + Lot # [id number] Exp date 07/2017 HEMOCCULT (IN HOUSE)-Additional 2017-02-01 RESULTS Postive Control + Lot # [id number] Exp Date 07/2017 CULTURE, STOOL 2017-02-01 Salmonella/Shigella Screen Final report Campylobacter Culture Final report E coli Shiga Toxin EIA Negative Negative Result 1 Result 1 STOOL (WBC) 2017-02-01 White Blood Cells (WBC), Stool TNP Request Problem TNP PROCEDURES Procedure Date Ordered Result Body Site LAB NOT BILL[facility] February 01, 2017 TEST FOR BLOOD, FECES February 01, 2017 INSTRUCTIONS MEDICATIONS ADMINISTERED No Known Medications [...] 02/2017 Hospitalization History For surgeries Hospitalization History [facility] in his 20's
[2018-02-06] MEDS ORDERED: NS IV 1000 ML 1,000 ML ONE ×2 (11:33→14:34)
[2018-02-06] MEDS ORDERED: HEParin (CATH LAB) 2,000 ML IV ONE (11:33)
[2018-02-06] MEDS ORDERED: LIDOCAINE 1% INJ 20 ML 20 ML VIAL ONE ×3 (11:33→13:49)
[2018-02-06] MEDS: NS IV 1000 ML 1,000 ML IV SCH ×3 (11:47→21:37)
[2018-02-06 11:53] LABS: HEMOGLOBIN 13.2 G/DL (13.3-17.7); MEAN PLATELET VOLUME 9.5 FL (7.4-10.4); RED BLOOD COUNT 4.54 10^6/uL (4.35-5.85); RED CELL DISTRIBUTION WIDTH 13.4 % (10.0-14.5); WHITE BLOOD COUNT 13.2 10^3/uL (4.3-11.0)
[2018-02-06 12:13] LABS: INR 1.1 (0.8-1.4); PROTHROMBIN TIME PATIENT 13.9 SEC (12.2-14.7)
[2018-02-06 12:21] LABS: ALANINE AMINOTRANSFERASE 16 U/L (0-55); ALKALINE PHOSPHATASE 74 U/L (40-136); BILIRUBIN,TOTAL 0.2 MG/DL (0.1-1.0); BUN/CREATININE RATIO 11; CALCIUM 8.9 MG/DL (8.5-10.1); CARBON DIOXIDE 29 MMOL/L (21-32); CHLORIDE 104 MMOL/L (98-107); CHOLESTEROL 246 MG/DL (< 200); CREATININE SERUM 0.95 MG/DL (0.60-1.30); GFR ESTIMATED > 60; GLUCOSE 124 MG/DL (70-105); HDL CHOLESTEROL 27 MG/DL (40-60); POTASSIUM 3.9 MMOL/L (3.6-5.0); SODIUM 141 MMOL/L (135-145); TOTAL PROTEIN 6.8 GM/DL (6.4-8.2); TRIGLYCERIDES 364 MG/DL (<150); VLDL CHOLESTEROL 73 MG/DL (5-40)
[2018-02-06] MEDS ORDERED: PROM25TA14 PO (12:28)
[2018-02-06] MEDS ORDERED: RANO10003 PO (12:28)
[2018-02-06] MEDS ORDERED: PANT40TA3 PO (12:28)
[2018-02-06] MEDS ORDERED: RIFA550T PO (12:28)
[2018-02-06] MEDS ORDERED: BUSP10TA95 PO (12:28)
[2018-02-06] MEDS ORDERED: IPRA4AER IH (12:28)
[2018-02-06] MEDS ORDERED: MIDAZOLAM 5 MG/5 ML (VERSED) VIAL ONE (12:40)
[2018-02-06] MEDS ORDERED: fentaNYL INJECTION 100 MCG/2 ML AMP ONE ×3 (12:40→15:09)
[2018-02-06] MEDS ORDERED: MIDAZOLAM 2 MG/2 ML (VERSED) VIAL ONE ×3 (13:28→15:21)
[2018-02-06] MEDS ORDERED: HEParin 1000 UNIT/ML (10ML VIAL) FOR BOLUS ONE (14:25)
[2018-02-06] MEDS ORDERED: ADENOSINE 3 MG/1 ML (ADENOSCAN) 30ML VIAL IV ONE (14:25)
[2018-02-06] MEDS ORDERED: CLOPIDOGREL 300 MG (PLAVIX) TABLET PO ONE (15:17)
[2018-02-06] MEDS ORDERED: diphenhydrAMINE 50 MG/ML INJ (BENADRYL) ONE (15:21)
--- NOTE | 2018-02-06 15:35 | Cardiac Procedure Note-CS/ASA ---
Pre-Procedure Note Pre-Op Procedure Note H&P Reviewed The H&P was reviewed, patient examined and no changes noted. Date H&P Reviewed: Feb 06, 2018 Time H&P Reviewed: 13:00 Conscious Sedation Pre-Proced Time Reviewed: 13:00 ASA Class: 3 Airway Mallampati Classification: ([place] appropriate class) I. II. III, IV Lungs Heart ASA score ASA 1: a normal healthy patient ASA 2: a patient with a mild systemic disease (mid diabetes, controlled hypertension, obesity ASA 3: a patient with a severe systemic disease that limits activity (angina , COPD, prior Myocardial infarction) ASA 4: a patient with an incapacitating disease that is a constant threat to life (CHF, renal failure) ASA 5: a moribund patient not expected to survive 24 hrs. (ruptured aneurysm) ASA 6: a declared brain patient whose organs are being harvested. For emergent operations, add the letter E after the classification Grade 1 Sedation Plan: Analgesia, Amnesia, Plan communicated to team members, Discussed options with patient/fam, Discussed risks with patient/fam Note The patient is an appropriate candidate to undergo the planned procedure, sedation, and anesthesia. The patient immediately re-assessed prior to indication. Marcia LYMAN MD Feb 06, 2018 3:35 pm
[2018-02-06] MEDS ORDERED: PATIENT MAY USE OWN MEDS, ALL PO SCH (15:45)
--- NOTE | 2018-02-06 15:52 | Coronary Angiography & PCI ---
Coronary Angiography & PCI DATE OF PROCEDURE: 02/06/18 INDICATION: Chest pain pain, status post CABG and PCI, abnormal nuclear stress test. PREOPERATIVE DIAGNOSIS: Chest pain pain, status post CABG and PCI, abnormal nuclear stress test. POSTOPERATIVE DIAGNOSIS: PTCA to in-stent restenosis in RPDA. HISTORY: This is a 48-year-old gentleman who is a patient of Dr. Fitzgerald. Patient has history of CABG in 2008. He has history of previous PCI in proximal left circumflex artery, OM artery, right PDA. He presented with recurrent chest pain. Stress test was performed which was abnormal. Therefore , the patient was scheduled for coronary angiography. PROCEDURES PERFORMED: 1.Coronary angiography. 2.Left heart catheterization. 3. Graft angiography. 4. REYES angiography. 5. Aortic arch angiography. 6. FFR to left circumflex artery. 7. FFR to right PDA. 8. PTCA to the in-stent restenosis in right PDA. COMPLICATIONS: None. SPECIMENS: None. ESTIMATED BLOOD LOSS: 10 mL ANESTHESIA: Conscious sedation ANTICOAGULATION: IV heparin CONTRAST: 263 mL FLUOROSCOPY: 28.2 minutes. FLOUROSCOPY DOSE: 2611 mgy. PROCEDURE DETAILS: The patient is a 48 male and was brought to the cathode builder after informed consent was taken. All the risks and complications were explained in detail; this included the risk of bleeding, vascular damage, stroke , MS and even . The patient was draped and prepped in the usual sterile fashion. Access was gained in the right femoral artery with a 5 Maltese sheath. Access was difficult due to significant previous scarring from previous PCI and coronary angiographies. Left heart catheterization, coronary angiography and graft angiography was performed with a JR4 catheter, JL3.5 catheter. We could not engage the left coronary system with a JL4 catheter. FINDINGS: 1.Left main: Patent. 2.LAD: Severe ostial disease with total occlusion in the mid LAD. Mid/distal LAD supplied by patent REYES. 3.Left circumflex artery: Moderate proximal stenosis in the previously placed stent. Known occluded OM stent. 4.RCA: Moderate mid disease. Moderate to severe in-stent restenosis in the RPDA. 5.Left heart catheterization: Aortic pressure 85/43 mmHg. LV pressure 161/11 mmHg. LVEDP 21 mmHg. No gradient across the aortic valve. LVEF 45 percent. 6. Patent REYES to the mid LAD. 7. Occluded saphenous vein grafts. These are known occluded grafts. 8. Aortic arch angiography: No evidence of dissection or aneurysm. Patent proximal segments of the great arteries including brachycephalic artery, common carotid artery, left subclavian artery. RECOMMENDATIONS: 1. FFR to the left circumflex artery. 2. FFR to the right PDA. 3. PTCA to severe in-stent restenosis in the right PDA. INTERVENTION DETAILS: FFR to the left circumflex artery was performed through the 5 Maltese diagnostic catheter. IV heparin was given. One ACT was performed. ACT was 252. With the pressure wire the lesion was crossed in the left circumflex artery. Baseline FFR was 0.93. Adenosine was started at 140 g per KG per minute for 2- 1/2 minutes. Lowest FFR was 0.84. PCI was deferred. FFR to the right PDA was performed through the 5 [place]ese JR4 diagnostic catheter. The lesion was crossed with a FFR wire. Baseline FFR was 0.55 which was severe therefore adenosine IV was not given. We upgraded the system to a 6 Maltese system. 6 Maltese JR 4 guide catheter was used. 600 mg of by mouth Plavix was given. The lesion was crossed with a whisper guidewire. We took a 2.5 x 30 mm noncompliant balloon and performed 3 inflations within the stents in the right PDA with excellent results. The balloon and wire were taken out and post-angiogram showed no significant in-stent restenosis. mynx closure was not performed due to significant scarring in the groin. Manual compression will be done. CONCLUSIONS: 1. Patent REYES to the LAD. Known occluded SVG grafts. Severe three-vessel [place] disease. 2. Normal FFR to the left circumflex artery. Severe reduced FFR of the right PDA. Successful PTCA done. 3. Elevated LVEDP with LVEF of 45 percent. 4. Long-term aspirin and Plavix. Alla Shanks MD, FACP, FACC, [facility] Interventional Cardiology Marcia SHANKS MD Feb 06, 2018 3:51 pm
[2018-02-06] MEDS ORDERED: ONDANSETRON 4 MG/2 ML (SDV) Z0FRAN ONE (16:05)
[2018-02-06] MEDS ORDERED: LORazepam INJ 2 MG/ML (ATIVAN) VIAL ONE (16:18)
[2018-02-06] MEDS: LORazepam INJ 2 MG/ML (ATIVAN) VIAL IVP PRN ×2 (16:21→20:07)
[2018-02-06] MEDS ORDERED: ATROPINE 0.4 MG/ML 20 ML VIAL ONE (20:13)
[2018-02-07] VITALS: BP 147/79
[2018-02-07 01:00] VITALS: BP 148/89
[2018-02-07 02:00] VITALS: BP 146/93
[2018-02-07] MEDS: NS IV 1000 ML 1,000 ML IV SCH (02:06)
[2018-02-07 03:44] LABS: HEMOGLOBIN 12.3 G/DL (13.3-17.7); MEAN PLATELET VOLUME 9.7 FL (7.4-10.4); RED BLOOD COUNT 4.23 10^6/uL (4.35-5.85); RED CELL DISTRIBUTION WIDTH 13.3 % (10.0-14.5); WHITE BLOOD COUNT 9.6 10^3/uL (4.3-11.0)
[2018-02-07 04:03] LABS: BUN/CREATININE RATIO 11; CALCIUM 8.4 MG/DL (8.5-10.1); CARBON DIOXIDE 27 MMOL/L (21-32); CHLORIDE 103 MMOL/L (98-107); CREATININE SERUM 0.84 MG/DL (0.60-1.30); GFR ESTIMATED > 60; GLUCOSE 109 MG/DL (70-105); POTASSIUM 3.9 MMOL/L (3.6-5.0); SODIUM 138 MMOL/L (135-145)
[2018-02-07 05:30] VITALS: BP 135/89
[2018-02-07 08:25] VITALS: BP 138/82
[2018-02-07] MEDS ORDERED: ASPIRIN E.C. 81 MG (ECOTRIN) TAB PO SCH (09:00)
[2018-02-07] MEDS ORDERED: CLOPIDOGREL 75 MG (PLAVIX) TABLET PO SCH (09:00)
--- NOTE | 2018-02-07 12:18 | Discharge Inst-Post CATH ---
Discharge Inst-CATH Post Cardiac Cath D/C Inst Follow Up/Plan Follow-up with Dr. Fitzgerald CARDIAC CATH DISCHARGE INSTRUCTIONS *Hold Metformin for 48 hours post heart cath. ACTIVITY * Go Home directly and rest. * Limit activity of the leg (or wrist if it was used) for 7 days including aerobics, swimming, jogging, bicycling, etc. * Restrict stair-climbing for 7 days if possible, if not, climb up with your non -cath leg, then bring together on the same step. * Avoid lifting, pushing, pulling or excessive movement of the affected extremity for 7 days. * Customary sexual activity may be resumed after 2 days-use caution not to use a position that strains or causes pain to the affected extremity. * No driving for 24 hours. * NO SMOKING. * Avoid straining for bowel movements for 7 days. * Gentle walking on level ground is allowed. * Returning to work will depend on the type of procedure and the results. Your doctor will discuss this with you. CALL YOUR DOCTOR FOR ANY OF THE FOLLOWING: *If bleeding from the puncture site occurs- Apply gentle pressure to site with clean cloth and call your doctor or EMS. * If a knot or lump forms under the skin, increases in size, or causes pain. * If bruising appears to be worsening or moving further down your leg instead of disappearing. * Temperature above 101 F. CARE OF YOUR GROIN INCISION; * Bruising or purple discoloration of the skin near the puncture site is common. * You may shower only, no bathtub bathing for 5 days. Be careful to avoid slipping as your leg may feel stiff. * If a closure device was used on your femoral artery, please see the attached guide regarding care of the device and your leg. * REMOVE the dressing from your groin the next day after your procedure in the shower. CARE OF YOUR WRIST INCISION; * Bruising or purple discoloration of the skin near the puncture site is common. * You may shower. * DO NOT submerge wrist. * Remove dressing in 24 hours. Marcia LYMAN MD Feb 07, 2018 12:18 pm
--- NOTE | 2018-02-07 12:18 | Cardiology Discharge Summary ---
Diagnosis/Chief Complaint Date of Admission 02/06/2018 Date of Discharge 02/07/2018 Admission Diagnosis Chest pain, history of CABG/PCI, abnormal nuclear stress test Final/Discharge Diagnosis Successful PTCA to severe in-stent restenosis of RPDA stents Chief Complaint/HPI Chief Complaint/HPI This is a 48-year-old gentleman with history of CABG in 2008. Numerous PCI afterwards. Presented with recurrent chest pain to Dr. Fitzgerald. Stress test was performed which was abnormal. Therefore coronary angiography was recommended. Discharge Summary Procedures Coronary angiography showed severe in-stent restenosis of the RPDA stents. Successful PTCA. Discharge Physical Examination Normal cardiovascular and respiratory examination. Normal right groin with no bruit. Positive peripheral pulses. Hospital Course Stable Discussion & Recommendations Discussion Discharge took over 30 minutes to complete. Patient will continue Plavix and oral anticoagulation. Will follow-up with Dr. Fitzgerald as an outpatient. All discharge instructions were discussed with the patient. Follow up appt.: Dr. Fitzgerald in one month. Dicharge Diet: Cardiac Diet Activity as Tolerated: Yes Home Medications Reviewed patient Home Medication Reconciliation performed by pharmacy medication reconciliations analytical technician and/or nursing. Patients Allergies have been reviewed. Discharge Home Medications: Reviewed and agree with Discharge Medication list on patient's Discharge Instruction sheet Condition at discharge Stable. Instructions to patient/family Follow-up with Marcia Khan MD Feb 07, 2018 12:18 pm
[2018-02-08] MEDS ORDERED: MAG30ORA2 PO (12:51)
== END 2018-02-07 10:45 | disposition home or self-care (01) ==
LOC: CATH 11:05 → ICU 19:32 → CATH 02-07 10:45
PROVIDERS: ATTEND Internal Medicine Interventional Cardiology
DX: T82.855A Stenosis of coronary artery stent, initial encounter (principal); I25.10 Atherosclerotic heart disease of native coronary artery without angina pectoris; I25.82 Chronic total occlusion of coronary artery; I10 Essential (primary) hypertension; I48.0 Paroxysmal atrial fibrillation; E78.5 Hyperlipidemia, unspecified; G47.33 Obstructive sleep apnea (adult) (pediatric); E66.9 Obesity, unspecified; Z68.35 Body mass index [BMI] 35.0-35.9, adult; Z86.73 Personal history of transient ischemic attack (TIA), and cerebral infarction without residual deficits; Z79.01 Long term (current) use of anticoagulants; Z79.899 Other long term (current) drug therapy; Z95.1 Presence of aortocoronary bypass graft; Z95.5 Presence of coronary angioplasty implant and graft
CPT/HCPCS: 36221; 36415; 80048; 80053; 80061; 85027; 85347; 85610; 85730; 87081; 93459

== ENCOUNTER 2018-02-07 21:22 | Observation (INO) | payer MEDICARE, MEDICAID ==
[~2018-02-07] VITALS: Ht 185.4 cm; Wt 123.8 kg
[~2018-02-07 21:22] MED LIST changes: +BUSP10TA95 PO; +IPRA4AER IH; +PANT40TA3 PO; +PROM25TA14 PO; +RIFA550T PO
--- OUTSIDE RECORDS SUMMARY | 2018-02-07 21:29 | XMS REPORT ---
Author Author ROJAS JUNIOR [facility] Address [address] [place] [address] Care Team Providers Care Crap Game Box Person Name Role Phone ROJASLYRIC COLMENARESHANY Unavailable PROBLEMS Type Condition ICD9-CM Code [id number] Code Onset Dates Condition Status SNOMED Code Problem History of stroke Z86.73 Active 815550561 Problem S/P CABG x 5 Z95.1 Active 135414051 Problem Anemia D64.9 Active 404819214 Problem Post traumatic stress disorder (PTSD) F43.10 Active 59860739 Problem Essential hypertension I10 Active 41342336 Problem Panic attack F41.0 Active 110753939 Problem Sciatica, unspecified side M54.30 Active 10133008 Problem Generalized anxiety disorder F41.1 Active 16486880 Problem Sciatica of left side M54.32 Active 56097297 Problem Intractable migraine without aura and with status migrainosus G43.011 Active 923431291 Problem Cannabis abuse F12.10 Active 33987175 Problem 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 Active 45359279 Problem Hyperlipidemia, unspecified E78.5 Active 43728494 Problem 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 Active 04481034 Problem Chronic obstructive pulmonary disease, unspecified J44.9 Active 08697288 Problem Hepatic steatosis K76.0 Active 184266753 Problem Other elevated white blood cell count D72.828 Active 391813047 Problem Mixed obsessional thoughts and acts F42.2 Active 86623099 Problem Diarrhea, unspecified type R19.7 Active 91654575 Problem Depression F32.9 Active 20749260 Problem GERD (gastroesophageal reflux disease) K21.9 Active 320214848 Problem Hyperplastic colonic polyp, unspecified part of colon K63.5 Active 411520441 Problem Anticoagulant long-term use Z79.01 Active 363544658 Problem Prediabetes R73.03 Active 307202850 Problem Vertigo R42 Active 959927278 Problem Paroxysmal atrial fibrillation I48.0 Active 661803666 Problem 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 Active 915627654 ALLERGIES No Information ENCOUNTERS Encounter Location Date Diagnosis [place] [id number] [place] [address] 21055- 1217 Nov, [place] [address] [place] [id number] [place] [address] 23126- 4346 Oct, Chronic obstructive pulmonary disease, unspecified J44.9 [place] [address] [place] [id number] [place] [address] 19417- 6853 Sep, 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 ; Mixed obsessional thoughts and acts F42.2 and Cannabis abuse F12.10 [place] [address] [place] [id number] [place] [address] 97043- 9730 Aug, 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 ; Mixed obsessional thoughts and acts F42.2 and Cannabis abuse F12.10 [place] [address] [place] [id number] [place] [address] 45474- 5378 Aug, 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 and Mixed obsessional thoughts and acts F42.2 [place] [address] [place] [id number] [place] [address] 29682- 1472 Jul, 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 and Mixed obsessional thoughts and acts F42.2 [place] [address] [place] [id number] [place] [address] 20679- 5539 Jul, 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 and Mixed obsessional thoughts and acts F42.2 [place] [address] [place] [id number] [place] [address] 08923- 6786 Jul, 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 ; Mixed obsessional thoughts and acts F42.2 and Cannabis abuse F12.10 [place] [address] [place] [id number] [place] [address] 98931- 6531 Jun, 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 ; Mixed obsessional thoughts and acts F42.2 and Cannabis abuse F12.10 [place] [address] [place] [id number] [place] [address] 57112- 6896 Jun, [place] [address] [place] [id number] [place] [address] 12604- 0126 Jun, 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 ; Mixed obsessional thoughts and acts F42.2 and Cannabis abuse F12.10 [place] [address] [place] [id number] [place] [address] 84465- 2625 May, 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 ; Mixed obsessional thoughts and acts F42.2 and Cannabis abuse F12.10 [place] [address] [place] [id number] [place] [address] 35904- 1013 May, 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 [place] [address] [place] [id number] [place] [address] 41821- 8458 Mar, [place] [address] [place] [id number] [place] [address] 56316- 9735 Mar, Chronic combined systolic (congestive) and diastolic ( congestive) heart failure I50.42 ; Diarrhea, unspecified type R19.7 ; Hepatic steatosis K76.0 and Generalized postprandial abdominal pain R10.84 [place] [address] [place] [id number] [place] [address] 69231- 1154 Jan, Generalized abdominal pain R10.84 [place] [address] [place] [id number] [place] [address] 16021- 8688 Jan, Generalized abdominal pain R10.84 ; Generalized postprandial abdominal pain R10.84 ; Diarrhea, unspecified type R19.7 ; Non- intractable vomiting with nausea, unspecified vomiting type R11.2 ; GERD ( gastroesophageal reflux disease) K21.9 ; S/P CABG x 5 Z95.1 ; Prominent abdominal aortic pulsation R09.89 and Other elevated white blood cell count D72.828 [place] [address] [place] [id number] [place] [address] 60056- 3242 Jan, Vertigo R42 [place] [address] [place] [id number] [place] [address] 79604- 3390 Jan, Other elevated white blood cell count D72.828 [place] [address] [place] [id number] [place] [address] 75680- 7086 Jan, Other elevated white blood cell count D72.828 [place] [address] [place] [id number] [place] [address] 65405- 5420 Jan, Hyperlipidemia, unspecified E78.5 ; Sciatica of left side M54.32 ; Weight loss R63.4 and Night sweats R61 [facility] [address] [place] [id number] [place] [address] [id number] December, Dental caries K02.9 and Dental examination Z01.20 [place] [address] 21476- 9592 Oct, Vertigo R42 ; Nausea R11.0 ; Chronic obstructive pulmonary disease, unspecified J44.9 ; GERD (gastroesophageal reflux disease) K21.9 ; S/P CABG x 5 Z95.1 ; Hyperlipidemia, unspecified E78.5 ; Essential hypertension I10 ; Paroxysmal atrial fibrillation I48.0 and Depression F32.9 [place] [address] [place] [id number] [place] [address] 86242- 8186 Oct, [place] [address] [place] [id number] [place] [address] 85414- 3510 Oct, Hyperlipidemia, unspecified E78.5 [place] [address] [place] [id number] [place] [address] 36769- 6010 Oct, 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 [place] [address] [place] [id number] [place] [address] 93072- 8596 Oct, Vertigo R42 [place] [address] [place] [id number] [place] [address] 34436- 5882 Oct, [facility] [address] [address] Sep, [facility] [address] [place] [id number] [place] [address] 26104- 2959 Aug, 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 [facility] [id number] [place] [address] 84275- 9753 05 Jul, 2016 Depression F32.9 ; Generalized anxiety disorder F41.1 and Panic attack F41.0 [facility] [address] [place] [id number] [place] [address] [id number] 02 Jul, 2016 Dental examination Z01.20 [place] [address] [place] [id number] [place] [address] 86636- 2722 30 Jun, 2016 [place] [address] [place] [id number] [place] [address] 24337- 1954 30 Jun, 2016 Encounter for dental examination and cleaning without abnormal findings Z01.20 [facility] [address] [place] [address] 91078- 4110 15 Jun, 2016 Intractable migraine without aura and with status migrainosus G43.011 ; 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 ; B12 deficiency E53.8 and Depression F32.9 [place] [address] [address] 1685 Jun, 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 [place] [address] [address]- 1034 14 Jun, 2016 Depression F32.9 ; Generalized anxiety disorder F41.1 ; Post traumatic stress disorder (PTSD) F43.10 and Panic attack F41.0 [facility] [id number] [place] [address] 74950- 2422 04 Jun, 2016 [place] [id number] [place] [address] 99569- 9848 Jun, [place] [address] [place] [id number] [place] [address] 58610- 6140 May, [place] [address] 45135- 6681 May, Elevated glucose R73.09 ; Depression F32.9 ; Hyperlipidemia , unspecified E78.5 ; Prediabetes R73.03 ; B12 deficiency E53.8 ; Vertigo R42 ; Seborrheic keratosis L82.1 ; Chronic obstructive pulmonary disease, unspecified J44.9 and Blurry vision H53.8 [place] [address] 77716- 5716 Apr, [address] 55659- 7679 Jan, Elevated glucose R73.09 ; Anemia D64.9 and Weakness generalized R53.[address] 04501- 6709 Jan, [place] [address] 56771- 5270 Jan, [address] 68118- 9832 December, Sciatica, left side M54.32 [place] [id number] [place] [address] 83883- 1925 Nov, Sciatica, unspecified side M54.30 ; Chronic obstructive pulmonary disease, unspecified J44.9 ; GERD (gastroesophageal reflux disease) K21.9 ; 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 and Pre-syncope R55 [address] 55547- 2108 Sep, [place] [id number] [place] [address] 83037- 9764 Aug, Coumadin toxicity, accidental or unintentional, subsequent encounter T60.4X1D [place] [id number] [address]- 0855 Aug, [facility] [id number] [place] [address] 04879- 2654 Aug, Coumadin toxicity, accidental or unintentional, subsequent encounter T60.4X1D ; Atherosclerosis of coronary artery bypass graft(s) without angina pectoris I25.810 and History of stroke Z86.73 [facility] [address] [place] [id number] [place] [address] 55179 -6556 Aug, Ear canal abrasion, left, initial encounter S00.412A and Anticoagulant long-term use Z79.01 [facility] [address] [place] [id number] [place] [address] 27917- 3382 Jul, [facility] [address] [place] [id number] [place] [address] 30589- 7822 Jul, Anticoagulant long-term use Z79.01 ; Polyarthralgia M25.50 ; Sciatica, left M54.32 ; Costochondritis M94.0 ; COPD exacerbation J44.1 and Depression F32.9 [facility] [address] [id number] [place] [address] 67252- 7018 May, [facility] [address] [place] [id number] [place] [address] 47589- 2216 Apr, Hyperlipidemia 272.4 ; Coronary artery disease 414.00 ; History of stroke V12.54 ; COPD (chronic obstructive pulmonary disease) 496 ; Hypertension 401.9 ; Sciatica 724.3 ; Encounter for monitoring coumadin therapy V58.83 ; Vertigo as late effect of stroke 438.85 ; Generalized anxiety disorder 300.02 and GERD (gastroesophageal reflux disease) 530.81 IMMUNIZATIONS No Known Immunizations SOCIAL HISTORY Never Assessed REASON FOR VISIT Referral PLAN OF CARE VITAL SIGNS MEDICATIONS Unknown [...] 02/2017 Hospitalization History For surgeries [facility]
[2018-02-07] MEDS ORDERED: ASPIRIN 81 MG CHEW (CHILDREN'S ASA) PO ONE (21:45)
[2018-02-07] MEDS ORDERED: NITROGLYCERIN 0.4 MG SL TABS BTL 25'S SL ONE (21:50)
[2018-02-07] MEDS ORDERED: NS IV 1000 ML 1,000 ML IV ONE (21:56)
[2018-02-07] MEDS ORDERED: fentaNYL INJECTION 100 MCG/2 ML AMP IVP STA (21:56)
[2018-02-07] MEDS ORDERED: PANTOPRAZOLE 40 MG/10 ML (PROTONIX) VIAL IV ONE (22:00)
[2018-02-07 22:03] LABS: BASOPHILS % (AUTO) 0 % (0-10); EOSINOPHILS # (AUTO) 0.2 10^3/uL (0.0-0.3); EOSINOPHILS % (AUTO) 2 % (0-10); HEMATOCRIT 35 % (40-54); HEMOGLOBIN 11.9 G/DL (13.3-17.7); LYMPHOCYTES # (AUTO) 2.5 X 10^3 (1.0-4.0); LYMPHOCYTES % (AUTO) 22 % (12-44); MEAN CORPUSCULAR HEMOGLOBIN 29 PG (25-34); MEAN CORPUSCULAR HGB CONC 34 G/DL (32-36); MEAN CORPUSCULAR VOLUME 85 FL (80-99); MEAN PLATELET VOLUME 9.8 FL (7.4-10.4); MONOCYTES # (AUTO) 0.7 X 10^3 (0.0-1.0); MONOCYTES % (AUTO) 6 % (0-12); NEUTROPHILS % (AUTO) 71 % (42-75); PLATELET COUNT 275 10^3/uL (130-400); RED BLOOD COUNT 4.11 10^6/uL (4.35-5.85); RED CELL DISTRIBUTION WIDTH 13.1 % (10.0-14.5); WHITE BLOOD COUNT 11.4 10^3/uL (4.3-11.0)
[2018-02-07 22:06] LABS: INR 1.5 (0.8-1.4); PROTHROMBIN TIME PATIENT 18.4 SEC (12.2-14.7)
[2018-02-07 22:14] LABS: ALANINE AMINOTRANSFERASE 13 U/L (0-55); ALBUMIN 3.9 GM/DL (3.2-4.5); BILIRUBIN,TOTAL 0.5 MG/DL (0.1-1.0); BUN/CREATININE RATIO 8; CALCIUM 8.7 MG/DL (8.5-10.1); CARBON DIOXIDE 27 MMOL/L (21-32); CHLORIDE 99 MMOL/L (98-107); CREATININE SERUM 1.05 MG/DL (0.60-1.30); GFR ESTIMATED > 60; GLUCOSE 145 MG/DL (70-105); POTASSIUM 4.2 MMOL/L (3.6-5.0); SODIUM 134 MMOL/L (135-145); TOTAL PROTEIN 6.8 GM/DL (6.4-8.2)
--- NOTE | 2018-02-07 22:18 | Diagnostic Imaging Report ---
INDICATION: Chest pain Frontal chest obtained at 0946 p.m. and compared to 06/18/2016. There is post sternotomy change with cardiomegaly. There is some minimal infiltrate or atelectasis in the right base. Left lung is clear. There is no pneumothorax or pleural fluid. IMPRESSION: Minimal infiltrate versus atelectasis in the right base. Cardiomegaly and poststernotomy change. No pneumothorax or pleural fluid collection. Dictated by: Dictated on workstation # [id number]
[2018-02-07 22:23] LABS: MYOGLOBIN SERUM 34.8 NG/ML (10.0-92.0)
[2018-02-07 22:41] LABS: ALKALINE PHOSPHATASE 74 U/L (40-136)
[2018-02-07] MEDS ORDERED: morphine INJ 10 MG/ML 1ML (SYR OR VIAL) IVP STA (22:49)
[2018-02-07] MEDS ORDERED: TICAGRELOR 90 MG TABLET (BRILINTA) PO ONE (23:00)
--- OUTSIDE RECORDS SUMMARY | 2018-02-07 23:28 | XMS REPORT ---
Author Author CHANTELL RAMIREZ Organization [facility] Address [address] [place] [address] Care Team Providers Care Marketing Executive Name Role Phone JAMESCHANTELL Unavailable PROBLEMS Type Condition ICD9-CM Code RDM92-[id number] Code Onset Dates Condition Status SNOMED Code Problem History of stroke Z86.73 Active 372783691 Problem S/P CABG x 5 Z95.1 Active 704449876 Problem Anemia D64.9 Active 237787073 Problem Post traumatic stress disorder (PTSD) F43.10 Active 47368193 Problem Essential hypertension I10 Active 19775338 Problem Panic attack F41.0 Active 928085363 Problem Sciatica, unspecified side M54.30 Active 44508000 Problem Generalized anxiety disorder F41.1 Active 69575985 Problem Sciatica of left side M54.32 Active 31361426 Problem Intractable migraine without aura and with status migrainosus G43.011 Active 820805787 Problem Cannabis abuse F12.10 Active 51052770 Problem 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 Active 43339852 Problem Hyperlipidemia, unspecified E78.5 Active 24971799 Problem 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 Active 09441107 Problem Chronic obstructive pulmonary disease, unspecified J44.9 Active 67377342 Problem Hepatic steatosis K76.0 Active 516452372 Problem Other elevated white blood cell count D72.828 Active 788570473 Problem Mixed obsessional thoughts and acts F42.2 Active 04606927 Problem Diarrhea, unspecified type R19.7 Active 17576004 Problem Depression F32.9 Active 83537264 Problem GERD (gastroesophageal reflux disease) K21.9 Active 535297415 Problem Hyperplastic colonic polyp, unspecified part of colon K63.5 Active 061334280 Problem Anticoagulant long-term use Z79.01 Active 867317981 Problem Prediabetes R73.03 Active 532147176 Problem Vertigo R42 Active 997709633 Problem Paroxysmal atrial fibrillation I48.0 Active 096153906 Problem 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 Active 194496818 ALLERGIES Substance Reaction Event Type Date Status Vicodin Unknown Drug Allergy Jun, Active PredniSONE Unknown Drug Allergy Jun, Active ENCOUNTERS Encounter Location Date Diagnosis [place] [id number] [place] [address] Nov, Chronic combined systolic (congestive) and diastolic ( congestive) heart failure I50.42 ; Chronic obstructive pulmonary disease, unspecified J44.9 ; Essential hypertension I10 ; Hyperlipidemia, unspecified E78.5 ; Anticoagulant long-term use Z79.01 ; Depression F32.9 ; Paroxysmal atrial fibrillation I48.0 and 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 [place] [address] [address] Oct, Chronic obstructive pulmonary disease, unspecified J44.9 [place] [address] [address] Sep, 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 ; Mixed obsessional thoughts and acts F42.2 and Cannabis abuse F12.10 [place] [id number] [place] [address] 10189- [address] Aug, 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 ; Mixed obsessional thoughts and acts F42.2 and Cannabis abuse F12.10 [place] [id number] [place] [address] 36203- [address] Aug, 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 and Mixed obsessional thoughts and acts F42.2 [place] [address] [address]- [address] Jul, 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 and Mixed obsessional thoughts and acts F42.2 [place] [address] [address] Jul, 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 and Mixed obsessional thoughts and acts F42.2 [place] [id number] [place] [address] 51911- 6[address] Jul, 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 ; Mixed obsessional thoughts and acts F42.2 and Cannabis abuse F12.10 [place] [id number] [place] [address] 88069- 45[address] Jun, 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 ; Mixed obsessional thoughts and acts F42.2 and Cannabis abuse F12.10 [place] [id number] [place] [address] 85170- 4762 Jun, [place] [id number] [place] [address] 71350- [address] Jun, 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 ; Mixed obsessional thoughts and acts F42.2 and Cannabis abuse F12.10 [place] [id number] [place] [address] 58960- 8[address] May, 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 ; Mixed obsessional thoughts and acts F42.2 and Cannabis abuse F12.10 [place] [id number] [place] [address] 52837- 384[address] May, 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 [place] [id number] [place] [address] 35861- 8343 Mar, [place] [id number] [place] [address] 42554- 3099 Mar, Chronic combined systolic (congestive) and diastolic ( congestive) heart failure I50.42 ; Diarrhea, unspecified type R19.7 ; Hepatic steatosis K76.0 and Generalized postprandial abdominal pain R10.84 [place] [id number] [place] [address] 36100- 3535 Jan, Generalized abdominal pain R10.84 [place] [address] [address]56[address] Jan, Generalized abdominal pain R10.84 ; Generalized postprandial abdominal pain R10.84 ; Diarrhea, unspecified type R19.7 ; Non- intractable vomiting with nausea, unspecified vomiting type R11.2 ; GERD ( gastroesophageal reflux disease) K21.9 ; S/P CABG x 5 Z95.1 ; Prominent abdominal aortic pulsation R09.89 and Other elevated white blood cell count D72.828 [place] [address] [address]- [address] Jan, Vertigo R42 [place] [address] [address]697[address] Jan, Other elevated white blood cell count D72.828 [place] [address] 99474- 58[address] Jan, Other elevated white blood cell count D72.828 [place] [address] 30172- [address] Jan, Hyperlipidemia, unspecified E78.5 ; Sciatica of left side M54.32 ; Weight loss R63.4 and Night sweats R61 [facility] [address] [id number] December, Dental caries K02.9 and Dental examination Z01.20 [place] [id number] [place] [address] 46495- 49[address] Oct, Vertigo R42 ; Nausea R11.0 ; Chronic obstructive pulmonary disease, unspecified J44.9 ; GERD (gastroesophageal reflux disease) K21.9 ; S/P CABG x 5 Z95.1 ; Hyperlipidemia, unspecified E78.5 ; Essential hypertension I10 ; Paroxysmal atrial fibrillation I48.0 and Depression F32.9 [place] [id number] [place] [address] 52847- 3667 Oct, [facility] [id number] [place] [address] 76997- 8242 Oct, Hyperlipidemia, unspecified E78.5 [facility] [id number] [place] [address] 44641- 2203 16 Oct, 2016 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 [facility] [id number] [place] [address] Oct, Vertigo R42 [facility] [address] 578[address] Oct, [facility] [address] 051713- [address] Sep, [facility] [address] 864651- [address]57 Aug, 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 [place] [address] 52984- 44[address] 05 Jul, 2016 Depression F32.9 ; Generalized anxiety disorder F41.1 and Panic attack F41.0 [facility] [address] [id number] Jul, 2016 Dental examination Z01.20 [facility] [address] 738[address]- 9967 30 Jun, 2016 [facility] [id number] [place] [address] 26580- 4782 30 Jun, 2016 Encounter for dental examination and cleaning without abnormal findings Z01.20 [facility] [id number] [place] [address] 04336- 68[address] 15 Jun, 2016 Intractable migraine without aura and with status migrainosus G43.011 ; 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 ; B12 deficiency E53.8 and Depression F32.9 [facility] [id number] [place] [address] 57663- 6521 15 Jun, 2016 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 [facility] [id number] [place] [address] 70149- 7679 Jun, Depression F32.9 ; Generalized anxiety disorder F41.1 ; Post traumatic stress disorder (PTSD) F43.10 and Panic attack F41.[address] [address]- [address] Jun, [place] [address] 61394- 6[address] Jun, [place] [address] 57[address]- 0[address] May, [address] [address]- [address] May, Elevated glucose R73.09 ; Depression F32.9 ; Hyperlipidemia , unspecified E78.5 ; Prediabetes R73.03 ; B12 deficiency E53.8 ; Vertigo R42 ; Seborrheic keratosis L82.1 ; Chronic obstructive pulmonary disease, unspecified J44.9 and Blurry vision H53.8 [place] [id number] [place] [address] 23240- 9486 Apr, [address] 45[address]- 3579 Jan, Elevated glucose R73.09 ; Anemia D64.9 and Weakness generalized R53.1 [place] [id number] [place] [address] 44458- 7043 Jan, [address] 35[address]- [address] Jan, [place] [id number] [place] [address] 88527- 5899 December, Sciatica, left side M54.32 [place] [id number] [place] [address] 73100- 1325 Nov, Sciatica, unspecified side M54.30 ; Chronic obstructive pulmonary disease, unspecified J44.9 ; GERD (gastroesophageal reflux disease) K21.9 ; 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 and Pre-syncope R55 [place] [address] 813[address]- 76[address] Sep, [place] [address] 42030- [address]96 Aug, Coumadin toxicity, accidental or unintentional, subsequent encounter T60.4X1D [place] [address] 58310- 8949 Aug, [place] [address] 50089- 2666 Aug, Coumadin toxicity, accidental or unintentional, subsequent encounter T60.4X1D ; Atherosclerosis of coronary artery bypass graft(s) without angina pectoris I25.810 and History of stroke Z86.73 [facility] [address] [address] Aug, Ear canal abrasion, left, initial encounter S00.412A and Anticoagulant long-term use Z79.01 [place] [address] 11683- 46[address] Jul, [place] [address] 80266- 6715 Jul, Anticoagulant long-term use Z79.01 ; Polyarthralgia M25.50 ; Sciatica, left M54.32 ; Costochondritis M94.0 ; COPD exacerbation J44.1 and Depression F32.9 [place] [id number] [place] [address] 34064- 9945 May, [place] [address] 59780- 7391 Apr, Hyperlipidemia 272.4 ; Coronary artery disease 414.00 ; History of stroke V12.54 ; COPD (chronic obstructive pulmonary disease) 496 ; Hypertension 401.9 ; Sciatica 724.3 ; Encounter for monitoring coumadin therapy V58.83 ; Vertigo as late effect of stroke 438.85 ; Generalized anxiety disorder 300.02 and GERD (gastroesophageal reflux disease) 530.81 IMMUNIZATIONS No Known Immunizations SOCIAL HISTORY Never Assessed REASON FOR VISIT f/u--Cynthia Malone MA PLAN OF CARE Activity Details Follow Up 4 Weeks Reason: f/u VITAL SIGNS Height 73 in 2017-06-20 Weight 276.8 lbs 2017-06-20 Heart Rate 108 bpm 2017-06-20 Respiratory Rate 20 2017-06-20 BMI 36.52 kg/m2 2017-06-20 Blood pressure systolic 124 mmHg 2017-06-20 Blood pressure diastolic 86 mmHg 2017-06-20 MEDICATIONS Medication Instructions Dosage Frequency Start Date End Date Duration Status Pantoprazole Sodium 40 mg Orally Once a day 1 tablet 24h Jun, 90 days Active Baclofen 20 TAKE 1 TABLET BY MOUTH THREE TIMES DAILY WITH FOOD OR MILK 30 Active Metoprolol Succinate ER 50 MG Orally 2 times a day 1 tablet 12h Active Amlodipine Besylate 5 MG Orally Once a day 1 tablet 24h Active Isosorbide Mononitrate ER 60 MG Orally Once a day 1 tablet in the morning 24h 90 days Active Plavix 75 MG Orally Once a day 1 tablet 24h Active Meclizine HCl 25 TAKE 1 TABLET BY MOUTH FOUR TIMES DAILY NEEDED FOR VERTIGO 30 Active Promethazine HCl 50 MG Orally every 6 hrs 0.5 tablet as needed for nausea 6h Jun, Active Combivent Respimat 20-100 MCG/ACT Inhalation Four times a day 1 puff 6h 30 days Active Atorvastatin Calcium 80 MG Orally Once a day 1 tablet 24h 90 Active BusPIRone HCl 10 mg Orally Twice a day 2 tablets 12h 16 Jun, 2017 30 days Active Effient 10 MG Orally Once a day 1 tablet 24h Active Trazodone HCl 50 MG Orally Once a day 1 - 2 tablet at bedtime as needed 24h Active Xarelto 20 MG Orally Once a day 1 tablet with food 24h 30 Active Zetia 10 MG Orally Once a day 1 tablet 24h Active Dicyclomine HCl 20 mg Orally Four times a day as needed 1 tablet Active Ranexa 1000 MG Orally Twice a day 1 tablet 12h Active Duloxetine HCl 60 mg Orally Once a day 2 capsule 24h Aug, Active RESULTS No Results PROCEDURES Procedure Date Ordered Result Body Site [facility] VISIT ESTABLISHED PATIENT Jun 20, 2017 INSTRUCTIONS MEDICATIONS ADMINISTERED No Known Medications [...] 02/2017 Hospitalization History For surgeries [facility]
[2018-02-08] VITALS (9 sets, daily range): BP systolic 90–166; BP diastolic 46–92
--- NOTE | 2018-02-08 00:07 | ED Chest Pain ---
General Chief Complaint: Chest Pain Stated Complaint: CHEST PAIN;HX OF CAD Nursing Triage Note: CHSET PAIN S/P HEART CATH Nursing Sepsis Screen: No Definite Risk Source: patient, old records Exam Limitations: no limitations History of Present Illness Date Seen by Provider: Feb 07, 2018 Time Seen by Provider: 21:40 Initial Comments PT ARRIVES VIA POV FROM HOME C/O CHEST PAIN--BEGAN A COUPLE OF HOURS AGO, THEN DRANK SPRITE AND IT GOT WORSE RATES PAIN 8/10 AT WORST, IS 5/10 NOW STATES PAIN IS TIGHTNESS AND CRAMPING IN CENTER OF CHEST PT HAS EXTENSIVE CARDIAC HISTORY AND HAD 5 VESSEL CABG AT AGE 39, HAS HAD 6 STENTS, MULTIPLE BALLOON ANGIOPLASTIES--STATES HE HAS HAD AT LEAST 12 CARDIAC CATHS PT HAD FAILED OUTPATIENT STRESS TEST IN THE LAST WEEK, AND HAD A CARDIAC CATH YESTERDAY WITH BALLOON ANGIOPLASTY X 2--PT WAS DISMISSED THIS MORNING + SHORTNESS OF BREATH + DIZZINESS AND STATES HE HAS BEEN "ABSENT MINDED" TODAY NO NAUSEA/VOMITING NO SWEATS NO SWELLING IN LEGS/ FEET NOW--HAS HAD IN THE PAST, WITH HISTORY OF CHF PT STATES HE TAKES PLAVIX, AND IS NOT ON ANY NEW MEDICATIONS SINCE THIS HOSPITALIZATION PCP: BRENNAN-K Allergies and Home Medications Allergies Coded Allergies: prednisone (Verified Allergy, Intermediate, RASH, 04/23/15) hydrocodone (Verified Allergy, Unknown, 04/23/15) venom-honey bee (Verified Allergy, Unknown, 04/23/15) Home Medications Albuterol Sulfate Unknown Strength Hfa.aer.ad, 2 PUFF IH Q4H PRN for SHORTNESS OF BREATH, (Reported) Albuterol/Ipratropium 4 Gm Aero, 2 PUFF IH BID, (Reported) Amlodipine Besylate 5 Mg Tablet, 5 MG PO DAILY Prescribed by: JAMEEL PIMENTEL on 04/27/15 1038 Atorvastatin Calcium 80 Mg Tablet, 80 MG PO HS, (Reported) Baclofen 20 Mg Tablet, 20 MG PO TID PRN for SPASMS, (Reported) Buspirone HCl 10 Mg Tablet, 20 MG PO DAILY, (Reported) TAKE 2 (10 MG) TABLETS ONCE DAILY FOR A TOTAL OF 20 MG Clopidogrel Bisulfate 75 Mg Tablet, 75 MG PO DAILY Prescribed by: JOSE GUADALUPE SCHNEIDER on 02/29/16 1300 Duloxetine HCl 60 Mg Capsule.dr, 120 MG PO DAILY, (Reported) TAKE 2 (60 MG) TABLETS ONCE DAILY FOR A TOTAL OF 120 MG DOSE Ezetimibe 10 Mg Tablet, 10 MG PO DAILY, (Reported) Isosorbide Mononitrate 60 Mg Tab, 60 MG PO DAILY@0630 Prescribed by: JOSE GUADALUPE SCHNEIDER on 02/29/16 1300 Meclizine HCl 25 Mg Tablet, 25 MG PO QID PRN for DIZZINESS, (Reported) Metoprolol Succinate 50 Mg Tab.er.24h, 50 MG PO Q12H, (Reported) Nitroglycerin 0.4 Mg Tab.subl, 0.4 MG SL for CHEST PAIN, (Reported) Pantoprazole Sodium 40 Mg Tablet.dr, 40 MG PO DAILY, (Reported) Prasugrel HCl 10 Mg Tablet, 10 MG PO DAILY, (Reported) Promethazine HCl 25 Mg Tablet, 25 MG PO Q4H PRN for NAUSEA/VOMITING, (Reported) Ranolazine 1,000 Mg Tab.er.12h, 1,000 MG PO BID, (Reported) Rifaximin 550 Mg Tablet, 550 MG PO DAILY, (Reported) Rivaroxaban 20 Mg Tablet, 20 MG PO DAILY, (Reported) Patient Home Medication List Home Medication List Reviewed: Yes Review of Systems Constitutional: no symptoms reported; No diaphoresis; malaise Respiratory: See HPI, Shortness of Air Cardiovascular: See HPI, Chest Pain; Denies Edema, Denies Lightheadedness, Denies Palpitations, Denies Syncope Gastrointestinal: No Symptoms Reported; Denies Abdominal Pain, Denies Nausea, Denies Vomiting Genitourinary: No Symptoms Reported Musculoskeletal: no symptoms reported Skin: no symptoms reported Psychiatric/Neurological: No Symptoms Reported Endocrine: No Symptoms Reported Hematologic/Lymphatic: No Symptoms Reported Past Nnavmfa-[id number]-Jnvpgq Hx Patient Social History Alcohol Use: Rarely Uses Number of Drinks Today: AA Alcohol Beverage of Choice: Beer Recreational Drug Use: Yes (THC) Drug of Choice: MARIJUANA Smoking Status: Former Smoker Type Used: Cigarettes Former Smoker, Quit: Feb 07, 2000 2nd Hand Smoke Exposure: No Recent Foreign Travel: No Contact w/Someone Who Travel: No Recent Infectious Disease Expo: No Recent Hopitalizations: No Immunizations Up To Date Tetanus Booster (TDap): Unknown PED Vaccines UTD: No Seasonal Allergies Seasonal Allergies: Yes Past Medical History Surgeries: Yes (ULNAR DECOMPRESSION; CYST REMOVAL; 5 VESSEL CABG AGE 39; AT LEAST 12 CARDIAC CATHS WITH 6 STENTS, MULTIPLE BALLOON ANGIOPLASTIES; EGD/ COLONOSCOPY/POLYPECTOMY) Cardiac, CABG, Coronary Stent, Orthopedic Respiratory: Yes Chronic Bronchitis, Sleep Apnea, COPD Currently Using CPAP: No Currently Using BIPAP: No Cardiac: Yes (A FLUTTER; 5-VESSEL CABG, MULTIPLE CATHS/ANGIOPLASTIES/STENTS X 6 ; CHF) Atrial Fibrillation, Coronary Artery Disease, High Cholesterol, Hypertension, Peripheral Vascular Neurological: Yes (CVA--CEREBELLAR WITH SOME PROBLEMS WITH BALANCE AND SHORT TERM MEMORY ) Stroke, TIA Reproductive Disorders: No Sexually Transmitted Disease: No HIV/AIDS: No Genitourinary: No Gastrointestinal: Yes Gastroesophageal Reflux, Chronic Diarrhea, Ulcer Musculoskeletal: Yes Chronic Back Pain, Spasms Endocrine: Yes (Borderline DM) Diabetes, Non-Insulin dep HEENT: Yes Eye Injury, Double Vision Loss of Vision: Right Hearing Impairment: Denies Cancer: No Psychosocial: Yes (OCD; INTENTIONAL OVERDOSE/SUICIDE ATTEMPT 06/2017) Sleep Difficulties, Anxiety, Suicide Attempts, Depression Integumentary: No Blood Disorders: Yes (B12 deficiency anemia) Adverse Reaction/Blood Tranf: No (N/A) Family Medical History Brain cancer 19 FATHER Congestive heart failure 19 MOTHER Coronary artery disease 19 FATHER Diabetes mellitus 19 MOTHER Heart attack 19 FATHER 19 MOTHER Hypertension 19 FATHER 19 MOTHER Lung cancer 19 FATHER Heart Disease, Cancer, Diabetes Physical Exam Vital Signs Vital Signs - First Documented Capillary Refill : Less Than 3 Seconds Height, Weight, BMI Height: 6', 1.00" Weight: 272lbs 0.0oz, [id number] Method:Stated ,35.9BMI General Appearance: No Apparent Distress, Obese, Other (SOMEWHAT DRAMATIC, HOLDING CENTER OF CHEST) Neck: Normal Inspection Respiratory: Chest Non Tender, Normal Breath Sounds, No Accessory Muscle Use, No Respiratory Distress Cardiovascular: Regular Rate, Rhythm, No Edema, No Gallop, No Murmur, Normal Peripheral Pulses Gastrointestinal: Normal Bowel Sounds, No Organomegaly, No Pulsatile Mass, Soft , Tenderness (EPIGASTRIC) Extremity: Normal Capillary Refill, Normal Inspection, Normal Range of Motion, Non Tender, No Calf Tenderness, No Pedal Edema Neurologic/Psychiatric: Alert, Oriented x3, No Motor/Sensory Deficits, 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 Norm as Tested Skin: Normal Color, Warm/Dry Progress/Results/Core Measures Results/Orders Lab Results Laboratory Tests Test 02/07/18 21:40 Range/Units White Blood Count 11.4 H 4.3-11.0 10^3/uL Red Blood Count 4.11 L 4.35-5.85 10^6/uL Hemoglobin 11.9 L 13.3-17.7 G/DL Hematocrit 35 L 40-54 % Mean Corpuscular Volume 85 80-99 FL Mean Corpuscular Hemoglobin 29 25-34 PG Mean Corpuscular Hemoglobin Concent 34 32-36 G/DL Red Cell Distribution Width 13.1 10.0-14.5 % Platelet Count 275 130-400 10^3/uL Mean Platelet Volume 9.8 7.4-10.4 FL Neutrophils (%) (Auto) 71 42-75 % Lymphocytes (%) (Auto) 22 12-44 % Monocytes (%) (Auto) 6 0-12 % Eosinophils (%) (Auto) 2 0-10 % Basophils (%) (Auto) 0 0-10 % Neutrophils # (Auto) 8.0 H 1.8-7.8 X 10^3 Lymphocytes # (Auto) 2.5 1.0-4.0 X 10^3 Monocytes # (Auto) 0.7 0.0-1.0 X 10^3 Eosinophils # (Auto) 0.2 0.0-0.3 10^3/uL Basophils # (Auto) 0.0 0.0-0.1 10^3/uL Prothrombin Time 18.4 H 12.2-14.7 SEC INR Comment 1.5 H 0.8-1.4 Activated Partial Thromboplast Time 36 H 24-35 SEC Sodium Level 134 L 135-145 MMOL/L Potassium Level 4.2 3.6-5.0 MMOL/L Chloride Level 99 98-107 MMOL/L Carbon Dioxide Level 27 21-32 MMOL/L Anion Gap 8 5-14 MMOL/L Blood Urea Nitrogen 8 7-18 MG/DL Creatinine 1.05 0.60-1.30 MG/DL Estimat Glomerular Filtration Rate > 60 BUN/Creatinine Ratio 8 Glucose Level 145 H 70-105 MG/DL Calcium Level 8.7 8.5-10.1 MG/DL Magnesium Level 2.0 1.8-2.4 MG/DL Total Bilirubin 0.5 0.1-1.0 MG/DL Aspartate Amino Transf (AST/SGOT) 10 5-34 U/L Alanine Aminotransferase (ALT/SGPT) 13 0-55 U/L Alkaline Phosphatase 74 40-136 U/L Myoglobin 34.8 10.0-92.0 NG/ML Troponin I < 0.30 <0.30 NG/ML B-Type Natriuretic Peptide 31.4 <100.0 PG/ML Total Protein 6.8 6.4-8.2 GM/DL Albumin 3.9 3.2-4.5 GM/DL My Orders Orders - KATHY JOHNSON DO Cbc With Automated Diff (02/07/18 21:37) Magnesium (02/07/18 21:37) Chest 1 View, Ap/Pa Only (02/07/18 21:37) Ekg Tracing (02/07/18 21:37) Cardiac Profile 1 (02/07/18 21:37) Comprehensive Metabolic Panel (02/07/18 21:37) Myoglobin Serum (02/07/18 21:37) Protime With Inr (02/07/18 21:37) Partial Thromboplastin Time (02/07/18 21:37) O2 (02/07/18 21:37) Monitor-Rhythm Ecg Trace Only (02/07/18 21:37) Lipid Panel (02/08/18 06:00) Aspirin Chewable Tablet (Baby Aspirin Ch (02/07/18 21:45) Saline Lock/Iv-Start (02/07/18 21:37) Nitroglycerin 0.4 Mg Btl 25's (Nitrostat (02/07/18 21:50) Saline Lock/Iv-Start (02/07/18 21:56) Ns Iv 1000 Ml (Sodium Chloride 0.9%) (02/07/18 21:56) Fentanyl Injection (Sublimaze Injection (02/07/18 21:56) Pantoprazole Injection (Protonix Injecti (02/07/18 22:00) Medications Given in ED Current Medications Medications Dose Ordered Sig/Colette Route Start Time Stop Time Status Last Admin Dose Admin Aspirin 324 mg ONCE ONCE PO 02/07/18 21:45 02/07/18 21:46 DC 02/07/18 21:56 324 MG Pantoprazole 40 mg ONCE ONCE IV 02/07/18 22:00 02/07/18 22:01 DC 02/07/18 22:10 40 MG Sodium Chloride 1,000 ml @ 0 mls/hr Q0M ONCE IV 02/07/18 21:56 02/07/18 21:57 DC 02/07/18 22:10 0 MLS/HR Vital Signs/I&O 02/07/18 02/07/18 02/07/18 02/07/18 21:30 21:30 21:30 21:56 Temp 97.4 97.4 Pulse 114 Resp 21 B/P (MAP) 105/67 (80) Pulse Ox 94 94 O2 Delivery Room Air Room Air Room Air 02/07/18 22:11 Temp 97.4 02/08/18 00:00 Intake Total 1000 ml Balance 1000 ml Blood Pressure Mean: 67 Progress Progress Note : Progress Note BP UP WITH FLUIDS PAIN IMPROVED AT TIME OF ADMIT NO DETERIORATION IN PT'S CONDITION DURING ER STAY Initial ECG Impression Date: Feb 07, 2018 Initial ECG Impression Time: 21:51 Initial ECG Rate: 99 Initial ECG Rhythm: Normal Sinus Initial ECG Impression: Nonspecific Changes (SLIGHT ST DEPRESSION IN LATERAL LEADS) Initial ECG Comparisson: Changed (SLIGHTYLY FROM 07/03/17) Departure Communication (Admissions) [id number]--SPOKE WITH DR. LYMAN, ACCEPTS PT FOR ADMIT. ADVISES TO GIVE BRILINTA 180 MG NOW AND REPLACE PLAVIX WITH BRILINTA. Impression Primary Impression: Chest pain Additional Impressions: Coronary artery disease S/P cardiac catheterization Disposition: ADMITTED INPATIENT Condition: Improved Departure-Patient Inst. Referrals: JUNIOR XIE MD (PCP) Primary Care Physician KATHY JOHNSON DO Feb 08, 2018 00:07
[2018-02-08] MEDS ORDERED: NITROGLYCERIN 0.4 MG SL TABS BTL 25'S SL PRN (00:15)
[2018-02-08] MEDS ORDERED: CATHETER FLUSH 10 ML SYR IV PRN (00:15)
[2018-02-08] MEDS: morphine INJ 10 MG/ML 1ML (SYR OR VIAL) IV PRN ×3 (01:10→09:12)
[2018-02-08 03:46] LABS: BASOPHILS % (AUTO) 0 % (0-10); EOSINOPHILS # (AUTO) 0.2 10^3/uL (0.0-0.3); EOSINOPHILS % (AUTO) 2 % (0-10); HEMATOCRIT 33 % (40-54); HEMOGLOBIN 11.4 G/DL (13.3-17.7); LYMPHOCYTES # (AUTO) 3.3 X 10^3 (1.0-4.0); LYMPHOCYTES % (AUTO) 31 % (12-44); MEAN CORPUSCULAR HEMOGLOBIN 29 PG (25-34); MEAN CORPUSCULAR HGB CONC 34 G/DL (32-36); MEAN CORPUSCULAR VOLUME 86 FL (80-99); MEAN PLATELET VOLUME 9.4 FL (7.4-10.4); MONOCYTES # (AUTO) 0.8 X 10^3 (0.0-1.0); MONOCYTES % (AUTO) 7 % (0-12); NEUTROPHILS # (AUTO) 6.4 X 10^3 (1.8-7.8); NEUTROPHILS % (AUTO) 60 % (42-75); PLATELET COUNT 238 10^3/uL (130-400); RED BLOOD COUNT 3.88 10^6/uL (4.35-5.85); RED CELL DISTRIBUTION WIDTH 13.1 % (10.0-14.5); WHITE BLOOD COUNT 10.7 10^3/uL (4.3-11.0)
[2018-02-08 04:10] LABS: ALANINE AMINOTRANSFERASE 11 U/L (0-55); ALBUMIN 3.6 GM/DL (3.2-4.5); ALKALINE PHOSPHATASE 70 U/L (40-136); BILIRUBIN,TOTAL 0.4 MG/DL (0.1-1.0); BUN/CREATININE RATIO 9; CALCIUM 8.6 MG/DL (8.5-10.1); CARBON DIOXIDE 29 MMOL/L (21-32); CHLORIDE 103 MMOL/L (98-107); CREATININE SERUM 0.94 MG/DL (0.60-1.30); GFR ESTIMATED > 60; GLUCOSE 91 MG/DL (70-105); SODIUM 139 MMOL/L (135-145); TOTAL PROTEIN 6.2 GM/DL (6.4-8.2)
[2018-02-08 04:17] LABS: CHOLESTEROL 231 MG/DL (< 200); HDL CHOLESTEROL 26 MG/DL (40-60); TRIGLYCERIDES 235 MG/DL (<150); VLDL CHOLESTEROL 47 MG/DL (5-40)
[2018-02-08 04:19] LABS: CARDIAC PROFILE 2 < 0.30 NG/ML (<0.30); MYOGLOBIN SERUM 31.6 NG/ML (10.0-92.0)
[2018-02-08] MEDS ORDERED: CATHETER FLUSH 10 ML SYR IV SCH (06:00)
[2018-02-08] MEDS ORDERED: TICAGRELOR 90 MG TABLET (BRILINTA) PO SCH (09:00)
[2018-02-08] MEDS ORDERED: ASPIRIN E.C. 81 MG (ECOTRIN) TAB PO SCH (09:00)
[2018-02-08] MEDS ORDERED: ANTACID SUSP 30 ML UDC (MYLANTA) ONE (12:13)
[2018-02-08] MEDS ORDERED: PANTOPRAZOLE 40 MG (PROTONIX) TAB PO ONE ×2 (12:14→12:15)
[2018-02-08] MEDS ORDERED: ANTACID SUSP 30 ML UDC (MYLANTA) PO ONE (12:15)
--- NOTE | 2018-02-08 12:34 | History & Physicial-Cardiolgy ---
HPI-Cardiology Cardiology Consultation: Date of Consultation 02/08/18 Date of Admission Attending Physician Marcia Shanks MD Admitting Physician Marta Lauren MD Consulting Physician Marcia SHANKS MD HPI: Time Seen by Provider: 12:00 Chief Complaint: Chest pain Mr Knight is 48-year-old gentleman with history of coronary artery disease with history of CABG 5 done in 2008, history of multiple stents, hypertension, hyperlipidemia, paroxysmal atrial fibrillation, history of CVA in his 20s, history of obstructive sleep apnea. the patient presented with recurrent episodes of atypical chest discomfort. Nuclear stress test was performed which was abnormal. Coronary angiography was performed on 02/06/2018 which showed moderate proximal left circumflex artery disease which was within normal limits by FFR. Significant in-stent restenosis was noted in RPDA stents. FFR was significantly abnormal therefore PTCA was done. Good results post PTCA. Patient would discharged yesterday morning. However he presented back to the ER with complaints of different lower chest discomfort and upper abdominal discomfort. The discomfort seems to be associated with swallowing. Patient was on Plavix and Xarelto. Review of Systems-Cardiology Review of Systems Constitutional: No As described under HPI, No no symptoms reported, No chills, No fever, No lightheadedness, No malaise, No tiredness, No weight loss, No weight gain, No other Eyes: No As described under HPI, No no symptoms reported, No blindness, No blurred vision, No contact lenses, No drainage, No decreased acuity, No foreign body sensation, No glasses, No inflammation, No pain, No photophobia, No previous injury, No shadows, No tunnel vision, No other, No vision change Ears/Nose/Throat: No As described under HPI, No no symptoms reported, No chronic hearing loss, No epistaxis, No ear discharge, No ear pain, No loose teeth, No mouth pain, No mouth swelling, No nasal drainage, No nose pain, No recent hearing loss, No throat pain, No throat swelling, No ulcerations, No other Respiratory: No no symptoms reported, No As described under HPI, No cough, No orthopnea, No shortness of breath, No SOB with excertion, No SOB at rest, No stridor, No wheezing, No other Cardiovascular: chest pain Gastrointestinal: abdominal pain Genitourinary: No no symptoms reported, No As described under HPI, No burning, No dysuria, No discharge, No frequency, No flank pain, No hematuria, No incontinence, No pain, No urgency, No other, No urine frequency changes, No urine coloration changes Musculoskeletal: No no symptoms reported, No As describe under HPI, No back pain, No gout, No joint pain, No joint swelling, No muscle pain, No muscle stiffness, No neck pain, No other Skin: No no symptoms reported, No As described under HPI, No change in color, No change in hair/nails, No dryness, No lesions, No lumps, No rash, No other, No skin related problems, No ulcerations, No rash on exposed areas, No ulcerations on exposed areas Psychiatric/Neurological: No no symptoms reported, No As described under HPI, No anxiety, No depression, No emotional problems, No headache, No numbness, No pre-existing deficit, No seizure, No tingling, No tremors, No weakness, No other , No focal weakness, No syncope Hematologic: No no symptoms reported, No As described under HPI, No anemia, No blood clots, No easy bleeding, No easy bruising, No swollen glands, No other, No bleeding abnormalities [id number] Hx Patient Social History Alcohol Use: Rarely Uses Recreational Drug Use: Yes (THC) Drug of Choice: MARIJUANA Smoking Status: Former Smoker Former smoker/When Quit: Apr 07, 1999 Type Used: Cigarettes 2nd Hand Smoke Exposure: No Recent Foreign Travel: No Recent Infectious Disease Expo: No Hospitalization with Isolation: Denies Physical Abuse Screen: No Sexual Abuse: No Immunizations Up To Date Tetanus Booster (TDap): Unknown Past Medical History PMH As described under Assessment. Family Medical History Family History: Brain cancer 19 FATHER Congestive heart failure 19 MOTHER Coronary artery disease 19 FATHER Diabetes mellitus 19 MOTHER Heart attack 19 FATHER 19 MOTHER Hypertension 19 FATHER 19 MOTHER Lung cancer 19 FATHER Allergies and Home Medications Allergies Coded Allergies: prednisone (Verified Allergy, Intermediate, RASH, 04/23/15) hydrocodone (Verified Allergy, Unknown, 04/23/15) venom-honey bee (Verified Allergy, Unknown, 04/23/15) Home Medications Albuterol Sulfate Unknown Strength Hfa.aer.ad, 2 PUFF IH Q4H PRN for SHORTNESS OF BREATH, (Reported) Albuterol/Ipratropium 4 Gm Aero, 2 PUFF IH BID, (Reported) Amlodipine Besylate 5 Mg Tablet, 5 MG PO DAILY Prescribed by: JAMEEL PIMENTEL on 04/27/15 1038 Atorvastatin Calcium 80 Mg Tablet, 80 MG PO HS, (Reported) Baclofen 20 Mg Tablet, 20 MG PO TID PRN for SPASMS, (Reported) Buspirone HCl 10 Mg Tablet, 20 MG PO DAILY, (Reported) TAKE 2 (10 MG) TABLETS ONCE DAILY FOR A TOTAL OF 20 MG Clopidogrel Bisulfate 75 Mg Tablet, 75 MG PO DAILY Prescribed by: JOSE GUADALUPE SCHNEIDER on 02/29/16 1300 Duloxetine HCl 60 Mg Capsule.dr, 120 MG PO DAILY, (Reported) TAKE 2 (60 MG) TABLETS ONCE DAILY FOR A TOTAL OF 120 MG DOSE Ezetimibe 10 Mg Tablet, 10 MG PO DAILY, (Reported) Isosorbide Mononitrate 60 Mg Tab, 60 MG PO DAILY@0630 Prescribed by: JOSE GUADALUPE SCHNEIDER on 02/29/16 1300 Mag Hydrox/Al Hydrox/Simeth 30 Ml Oral.susp, 30 ML PO QID PRN for INDIGESTION Prescribed by: JOSE JAIN on 02/08/18 1251 Meclizine HCl 25 Mg Tablet, 25 MG PO QID PRN for DIZZINESS, (Reported) Metoprolol Succinate 50 Mg Tab.er.24h, 50 MG PO Q12H, (Reported) Nitroglycerin 0.4 Mg Tab.subl, 0.4 MG SL for CHEST PAIN, (Reported) Pantoprazole Sodium 40 Mg Tablet.dr, 40 MG PO DAILY, (Reported) Prasugrel HCl 10 Mg Tablet, 10 MG PO DAILY, (Reported) Promethazine HCl 25 Mg Tablet, 25 MG PO Q4H PRN for NAUSEA/VOMITING, (Reported) Ranolazine 1,000 Mg Tab.er.12h, 1,000 MG PO BID, (Reported) Rifaximin 550 Mg Tablet, 550 MG PO DAILY, (Reported) Rivaroxaban 20 Mg Tablet, 20 MG PO DAILY, (Reported) Patient Home Medication List Home Medication List Reviewed: Yes Physical Exam-Cardiology Physical Exam Vital Signs/I&O 02/08/18 02/08/18 02/08/18 02/08/18 07:20 08:00 08:50 08:50 Temp 97.2 Pulse 76 80 Resp 12 B/P (MAP) 107/92 (97) Pulse Ox 95 95 95 O2 Delivery Room Air Room Air Room Air 02/08/18 02/08/18 02/08/18 02/08/18 11:18 11:21 13:00 13:14 Temp 97.0 Pulse 86 71 81 Resp 22 18 B/P (MAP) 131/83 (99) 143/84 (103) Pulse Ox 97 99 O2 Delivery Room Air Room Air Room Air 02/08/18 13:16 Pulse 81 Resp 18 B/P (MAP) 143/84 Pulse Ox 99 O2 Delivery Room Air 02/08/18 00:00 Intake Total 1000 ml Balance 1000 ml Capillary Refill : Less Than 3 Seconds Constitutional: appears stated age, AAO x 3; No apparent distress; well- developed, well-nourished HEENT: PERRL; No normal ENT inspection, No TMs normal, No pharynx normal, No scleral icterus (R), No scleral icterus (L), No pale conjunctivae (R), No pale conjunctivae (L), No photophobia, No TM abnormal (R), No TM abnormal (L), No pharyngeal erythema, No tonsillar exudate, No other, No discharge, No EOMI; hearing is well preserved; No hard of hearing; oral hygience is good; No ulceration, No xanthelasmas are seen Neck: No non-tender, No full range of motion, No supple, No normal inspection, No carotid bruit, No limited range of motion, No lymphadenopathy (R), No lymphadenopathy (L), No tender lateral, No tender midline, No thyromegaly, No other; carotid pulses are 2 + bilaterally; No with good upstrokes Respiratory: No accessory muscle use, No respiratory distress, No chest tender , No chest expansion is symmetric; chest is bilaterally symmetric; No lungs clear to percussion; lungs clear to auscultation; No crackles, No rhonchi, No rales, No stridor, No wheezing, No pleural rub, No other Cardiovascular: regular rate-rhythm; No irregularly irregular, No extra beats, No parasternal heave is noted, No JVD, No edema, No bradycardia, No tachycardia , No point of maximal impulse, No cardiac thrills are palpable; S1 and S2; No gallop/S3, No gallop/S4, No diastolic murmur, No systolic murmur, No friction rub, No click, No other Gastrointestinal: No tender, No soft, No round, No distended, No pulsatile mass , No organomegaly, No guarding, No rebound, No tenderness, No hernia, No mass, No audible bowel sounds, No abnormal bowel sounds, No abdominal bruits, No spleenomegaly, No other Rectal: deferred Extremities: No normal range of motion, No non-tender, No normal inspection, No pedal edema, No calf tenderness, No normal capillary refill, No pelvis stable , No calf tenderness, No inflammation, No pedal edema, No slow capillary refill , No swelling, No other, No abrasion, No clubbing, No cyanosis, No ecchymosis, No laceration, No no lower extremity edema bilateral, No significant edema, No tenderness, No wound Neurologic/Psychiatric: no motor/sensory deficits, alert, normal mood/affect, oriented x 3, power is 5/5 both on sides Skin: No normal color, No warm/dry, No cyanosis, No cool, No diaphoresis, No damp, No ecchymosis, No jaundice, No mottled, No pallor, No rash, No tattoos/ piercings, No ulcerations, No rash on exposed areas, No ulcerations on exposed areas, No other Data Review Labs Laboratory Tests 02/07/18 21:40: White Blood Count 11.4H, Red Blood Count 4.11L, Hemoglobin 11.9L, Hematocrit 35L , Mean Corpuscular Volume 85, Mean Corpuscular Hemoglobin 29, Mean Corpuscular Hemoglobin Concent 34, Red Cell Distribution Width 13.1, Platelet Count 275, Mean Platelet Volume 9.8, Neutrophils (%) (Auto) 71, Lymphocytes (%) (Auto) 22, Monocytes (%) (Auto) 6, Eosinophils (%) (Auto) 2, Basophils (%) (Auto) 0, Neutrophils # (Auto) 8.0H, Lymphocytes # (Auto) 2.5, Monocytes # (Auto) 0.7, Eosinophils # (Auto) 0.2, Basophils # (Auto) 0.0, Prothrombin Time 18.4H, INR Comment 1.5H, Activated Partial Thromboplast Time 36H, Sodium Level 134L, Potassium Level 4.2, Chloride Level 99, Carbon Dioxide Level 27, Anion Gap 8, Blood Urea Nitrogen 8, Creatinine 1.05, Estimat Glomerular Filtration Rate > 60 , BUN/Creatinine Ratio 8, Glucose Level 145H, Calcium Level 8.7, Magnesium Level 2.0, Total Bilirubin 0.5, Aspartate Amino Transf (AST/SGOT) 10, Alanine Aminotransferase (ALT/SGPT) 13, Alkaline Phosphatase 74, Myoglobin 34.8, Troponin I < 0.30, B-Type Natriuretic Peptide 31.4, Total Protein 6.8, Albumin 3.9 02/08/18 03:35: White Blood Count 10.7, Red Blood Count 3.88L, Hemoglobin 11.4L, Hematocrit 33L , Mean Corpuscular Volume 86, Mean Corpuscular Hemoglobin 29, Mean Corpuscular Hemoglobin Concent 34, Red Cell Distribution Width 13.1, Platelet Count 238, Mean Platelet Volume 9.4, Neutrophils (%) (Auto) 60, Lymphocytes (%) (Auto) 31, Monocytes (%) (Auto) 7, Eosinophils (%) (Auto) 2, Basophils (%) (Auto) 0, Neutrophils # (Auto) 6.4, Lymphocytes # (Auto) 3.3, Monocytes # (Auto) 0.8, Eosinophils # (Auto) 0.2, Basophils # (Auto) 0.0, Sodium Level 139, Potassium Level 4.0, Chloride Level 103, Carbon Dioxide Level 29, Anion Gap 7, Blood Urea Nitrogen 8, Creatinine 0.94, Estimat Glomerular Filtration Rate > 60, BUN/ Creatinine Ratio 9, Glucose Level 91, Calcium Level 8.6, Total Bilirubin 0.4, Aspartate Amino Transf (AST/SGOT) 10, Alanine Aminotransferase (ALT/SGPT) 11, Alkaline Phosphatase 70, Myoglobin 31.6, Troponin I < 0.30, Total Protein 6.2L, Albumin 3.6, Triglycerides Level 235H, Cholesterol Level 231H, LDL Cholesterol Direct 163H, VLDL Cholesterol 47H, HDL Cholesterol 26L ECG Impression ECG Initial ECG Rhythm: Normal Sinus Comment T-wave inversions with downsloping ST segment noted. A/P-Cardiology Assessment/Admission Diagnosis chest pain, CAD, recent PTCA to RPDA stents. Atrial fibrillation, Hyperlipidemia, Morbid obesity Admission Status: Observation Plan Coronary artery disease, history of CABG 5 done in 2008, history of 4 stents, last 2 stents were placed in 2012. Cardiac catheterization was done on April 26, 2015 with successful balloon angioplasty for 90 percent in-stent restenosis in the right posterior descending artery. Distal right PDA had 80 percent stenosis, very small artery not amendable to intervention. Patent stent in the proximal circumflex artery. Occluded stent in the obtuse marginal branch. Occluded LAD a with known patent REYES to LAD. Repeat cardiac catheterization was done in February [address] Joseph as occlusion of the LAD, ostial occlusion of the proximal OM, 80 percent stenosis at the distal small right PDA, left to left and [id number] collateral filling the OM system , 2 occluded vein graft presumably to the OM and right coronary artery, patent REYES to LAD, patient has significant disease in the distal LAD. Most recently underwent cardiac catheterization with Dr. Evangelista July 2016 with successful percutaneous revascularization of severe PDA branch disease with 2.5 x 32 mm Promus drug-eluting stent, and a 2.25 x 12 mm Promus drug-eluting stent to the PDA. Maintained on Plavix and Xarelto. had an abnormal stress test with questionable ischemia involving the whole lateral wall, anterolateral and inferolateral wall with prominent left ventricular ejection fraction 35 percent , planning to proceed with left heart catheterization possible PTCA. patient had recent PTCA to severe in-stent restenosis of RPDA stents on 2017 which was successful. Patient presented yesterday evening with atypical chest discomfort and upper epigastric discomfort. Discomfort occurs with swallowing. Acute coronary syndrome ruled out with negative serial troponin. Patient will be discharged to follow-up with medicine on Saturday. I will also follow-up the patient in a week. patient will continue on Plavix and Xarelto. No aspirin will be given. Protonix was given. Hyperlipidemia: Patient already on statin and ezetimibe. LDL still not controlled. Patient will be a candidate for PCSK9 inhibitors. Clinical Quality Measures AMI/AHF: ASA po Prior to arrival: No DVT/VTE Risk/Contraindication: Risk Factor Score Per Nursin RFS Level Per Nursing on Admit: 2=Moderate Marcia SHANKS MD Feb 08, 2018 12:34
[2018-02-08] MEDS ORDERED: MAG30ORA2 PO (12:51)
--- NOTE | 2018-02-08 17:47 | Cardiology Discharge Summary ---
Diagnosis/Chief Complaint Date of Admission Feb 07, 2018 at 22:50 Date of Discharge Feb 08, 2018 at 13:20 Admission Diagnosis Atypical chest pain, history of CAD Final/Discharge Diagnosis atypical chest pain, known history of CAD Chief Complaint/HPI Chief Complaint/HPI Mr Knight is 48-year-old gentleman with history of coronary artery disease with history of CABG 5 done in 2008, history of multiple stents, hypertension, hyperlipidemia, paroxysmal atrial fibrillation, history of CVA in his 20s, history of obstructive sleep apnea. the patient presented with recurrent episodes of atypical chest discomfort. Nuclear stress test was performed which was abnormal. Coronary angiography was performed on 02/06/2018 which showed moderate proximal left circumflex artery disease which was within normal limits by FFR. Significant in-stent restenosis was noted in RPDA stents. FFR was significantly abnormal therefore PTCA was done. Good results post PTCA. Patient would discharged yesterday morning. However he presented back to the ER with complaints of different lower chest discomfort and upper abdominal discomfort. The discomfort seems to be associated with swallowing. Patient was on Plavix and Xarelto. Discharge Summary Procedures None. Discharge Physical Examination stable Hospital Course stable Discussion & Recommendations Discussion discussed at length with the patient. Lower chest discomfort and upper epigastric discomfort is likely GI in origin and could be due to esophageal disease. Patient will follow-up with medicine and may require endoscopy with GI /general surgery. Will give Protonix and Mylanta. Acute coronary syndrome is ruled out with negative serial troponin. Follow-up in one week. Follow up appt.: primary care physician early next week. Dr. Lyman in one week. Dicharge Diet: Cardiac Diet Activity as Tolerated: Yes Home Medications Reviewed patient Home Medication Reconciliation performed by pharmacy medication reconciliations dialysis equipment technician and/or nursing. Patients Allergies have been reviewed. Discharge Home Medications: Reviewed and agree with Discharge Medication list on patient's Discharge Instruction sheet Condition at discharge stable. Instructions to patient/family instructions provided to the patient. Clinical Quality Measures AMI/AHF: ASA po Prior to arrival: No DVT/VTE Risk/Contraindication: Risk Factor Score Per Nursin RFS Level Per Nursing on Admit: 2=Moderate Marcia LYMAN MD Feb 08, 2018 17:47
--- OUTSIDE RECORDS SUMMARY | 2018-02-13 15:03 | XMS REPORT ---
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 Name Role Phone JAMESCHANTELL Unavailable PROBLEMS Type Condition ICD9-CM Code NEH57-ZY Code Onset Dates Condition Status SNOMED Code Problem History of stroke Z86.73 Active 513598558 Problem S/P CABG x 5 Z95.1 Active 112123262 Problem Anemia D64.9 Active 633256520 Problem Post traumatic stress disorder (PTSD) F43.10 Active 03127718 Problem Essential hypertension I10 Active 17525609 Problem Panic attack F41.0 Active 029481548 Problem Sciatica, unspecified side M54.30 Active 65798848 Problem Generalized anxiety disorder F41.1 Active 07500625 Problem Sciatica of left side M54.32 Active 41163253 Problem Intractable migraine without aura and with status migrainosus G43.011 Active 493621599 Problem Cannabis abuse F12.10 Active 16455462 Problem 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 Active 43168858 Problem Hyperlipidemia, unspecified E78.5 Active 23238780 Problem 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 Active 88270088 Problem Chronic obstructive pulmonary disease, unspecified J44.9 Active 44190010 Problem Hepatic steatosis K76.0 Active 320548630 Problem Other elevated white blood cell count D72.828 Active 454261405 Problem Mixed obsessional thoughts and acts F42.2 Active 38360909 Problem Diarrhea, unspecified type R19.7 Active 89625025 Problem Depression F32.9 Active 42297401 Problem GERD (gastroesophageal reflux disease) K21.9 Active 094522369 Problem Hyperplastic colonic polyp, unspecified part of colon K63.5 Active 979976339 Problem Anticoagulant long-term use Z79.01 Active 323683615 Problem Prediabetes R73.03 Active 172480708 Problem Vertigo R42 Active 136709597 Problem Paroxysmal atrial fibrillation I48.0 Active 772023498 Problem 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 Active 297760003 ALLERGIES Substance Reaction Event Type Date Status Vicodin Unknown Drug Allergy Jul, Active PredniSONE Unknown Drug Allergy Jul, Active ENCOUNTERS Encounter Location Date Diagnosis [place] [id number] [place] [address] Nov, Chronic combined systolic (congestive) and diastolic ( congestive) heart failure I50.42 ; Chronic obstructive pulmonary disease, unspecified J44.9 ; Essential hypertension I10 ; Hyperlipidemia, unspecified E78.5 ; Anticoagulant long-term use Z79.01 ; Depression F32.9 ; Paroxysmal atrial fibrillation I48.0 and 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 [facility] [address] [address] Oct, Chronic obstructive pulmonary disease, unspecified J44.9 [place] [address] [address] Sep, 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 ; Mixed obsessional thoughts and acts F42.2 and Cannabis abuse F12.10 [facility] [place] [id number] [place] [address] Aug, 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 ; Mixed obsessional thoughts and acts F42.2 and Cannabis abuse F12.10 [facility] [place] [id number] [place] [address] 30[address] Aug, 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 and Mixed obsessional thoughts and acts F42.2 [place] [address] [address] Jul, 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 and Mixed obsessional thoughts and acts F42.2 [place] [address] [address] Jul, 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 and Mixed obsessional thoughts and acts F42.2 [place] [id number] [place] [address] 29[address] Jul, 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 ; Mixed obsessional thoughts and acts F42.2 and Cannabis abuse F12.10 [facility] [place] [id number] [place] [address] 58966- [address] Jun, 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 ; Mixed obsessional thoughts and acts F42.2 and Cannabis abuse F12.10 [facility] [place] [id number] [place] [address]- [address] Jun, [facility] [id number] [place] [address] 39962- [address] Jun, 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 ; Mixed obsessional thoughts and acts F42.2 and Cannabis abuse F12.10 [facility] [place] [id number] [place] [address] May, 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 ; Mixed obsessional thoughts and acts F42.2 and Cannabis abuse F12.10 [facility] [id number] [place] [address]69[address] May, 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 [facility] [id number] [place] [address] 9[address]- [address]57 Mar, [facility] [id number] [place] [address] 01473- [address] Mar, Chronic combined systolic (congestive) and diastolic ( congestive) heart failure I50.42 ; Diarrhea, unspecified type R19.7 ; Hepatic steatosis K76.0 and Generalized postprandial abdominal pain R10.84 [place] [id number] [place] [address] 02951- [address] Jan, Generalized abdominal pain R10.84 [place] [address] [address] Jan, Generalized abdominal pain R10.84 ; Generalized postprandial abdominal pain R10.84 ; Diarrhea, unspecified type R19.7 ; Non- intractable vomiting with nausea, unspecified vomiting type R11.2 ; GERD ( gastroesophageal reflux disease) K21.9 ; S/P CABG x 5 Z95.1 ; Prominent abdominal aortic pulsation R09.89 and Other elevated white blood cell count D72.828 [place] [address] [address] Jan, Vertigo R42 [place] [address] [place] [address]119[address]- [address] Jan, Other elevated white blood cell count D72.828 [place] [address] 8[address]- [address] Jan, Other elevated white blood cell count D72.828 [place] [address] [address]- [address] Jan, Hyperlipidemia, unspecified E78.5 ; Sciatica of left side M54.32 ; Weight loss R63.4 and Night sweats R61 [facility] [address] [id number] December, Dental caries K02.9 and Dental examination Z01.20 [place] [id number] [place] [address] 8[address]89- [address] Oct, Vertigo R42 ; Nausea R11.0 ; Chronic obstructive pulmonary disease, unspecified J44.9 ; GERD (gastroesophageal reflux disease) K21.9 ; S/P CABG x 5 Z95.1 ; Hyperlipidemia, unspecified E78.5 ; Essential hypertension I10 ; Paroxysmal atrial fibrillation I48.0 and Depression F32.9 [place] [id number] [place] [address] 90924- 8[address] Oct, [facility] [id number] [place] [address] 67694- [address] Oct, Hyperlipidemia, unspecified E78.5 [facility] [id number] [place] [address] 08809- 67[address] 16 Oct, 2016 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 [facility] [id number] [place] [phone] Oct, Vertigo R42 [facility] [address] 680262- [address] Oct, [facility] [address] 038006- 9636 Sep, [facility] [address] 351257- [address]34 Aug, 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 [place] [address] [address]- [address] 05 Jul, 2016 Depression F32.9 ; Generalized anxiety disorder F41.1 and Panic attack F41.0 [facility] [address] [id number] Jul, 2016 Dental examination Z01.20 [facility] [address] [address]- [address] 30 Jun, 2016 [facility] [id number] [place] [address] 8[address]- [address] 30 Jun, 2016 Encounter for dental examination and cleaning without abnormal findings Z01.20 [facility] [id number] [place] [address] 76337- [address] 15 Jun, 2016 Intractable migraine without aura and with status migrainosus G43.011 ; 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 ; Depression F32.9 and B12 deficiency E53.8 [facility] [id number] [place] [address] 20762- 9669 15 Jun, 2016 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 [facility] [id number] [place] [address] 06629- 5285 Jun, Depression F32.9 ; Generalized anxiety disorder F41.1 ; Post traumatic stress disorder (PTSD) F43.10 and Panic attack F41.[address] [address] Jun, [place] [address] [address] Jun, [place] [address] 37[address] May, [address] [address]- [address] May, Elevated glucose R73.09 ; Depression F32.9 ; Hyperlipidemia , unspecified E78.5 ; Prediabetes R73.03 ; B12 deficiency E53.8 ; Vertigo R42 ; Seborrheic keratosis L82.1 ; Chronic obstructive pulmonary disease, unspecified J44.9 and Blurry vision H53.8 [place] [id number] [place] [address] 40650- [address] Apr, [address] [address]- [address] Jan, Elevated glucose R73.09 ; Anemia D64.9 and Weakness generalized R53.1 [place] [id number] [place] [address] 54975- 2480 Jan, [address] [address]- [address] Jan, [place] [id number] [place] [address] 32929- 3799 December, Sciatica, left side M54.32 [place] [id number] [place] [address] 07741- [address] Nov, Sciatica, unspecified side M54.30 ; Chronic obstructive pulmonary disease, unspecified J44.9 ; GERD (gastroesophageal reflux disease) K21.9 ; 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 and Pre-syncope R55 [place] [address] [address] Sep, [place] [address] 33[address] Aug, Coumadin toxicity, accidental or unintentional, subsequent encounter T60.4X1D [place] [address] 107[address] Aug, [place] [address] 52762- [address] Aug, Coumadin toxicity, accidental or unintentional, subsequent encounter T60.4X1D ; Atherosclerosis of coronary artery bypass graft(s) without angina pectoris I25.810 and History of stroke Z86.73 [facility] [address] [address] Aug, Ear canal abrasion, left, initial encounter S00.412A and Anticoagulant long-term use Z79.01 [place] [address] 9[address]- [address] Jul, [place] [address] [address]87- [address] Jul, Anticoagulant long-term use Z79.01 ; Polyarthralgia M25.50 ; Sciatica, left M54.32 ; Costochondritis M94.0 ; COPD exacerbation J44.1 and Depression F32.9 [place] [id number] [place] [address] 9[address]- [address]77 May, [place] [address] 9[address]- [address] Apr, Hyperlipidemia 272.4 ; Coronary artery disease 414.00 ; History of stroke V12.54 ; COPD (chronic obstructive pulmonary disease) 496 ; Hypertension 401.9 ; Sciatica 724.3 ; Encounter for monitoring coumadin therapy V58.83 ; Vertigo as late effect of stroke 438.85 ; Generalized anxiety disorder 300.02 and GERD (gastroesophageal reflux disease) 530.81 IMMUNIZATIONS No Known Immunizations SOCIAL HISTORY Never Assessed REASON FOR VISIT f/u-Nikko WILEY PLAN OF CARE Activity Details Follow Up 2 Weeks Reason: f/u VITAL SIGNS Height 73 in 2017-07-11 Weight 283.4 lbs 2017-07-11 Heart Rate 102 bpm 2017-07-11 Respiratory Rate 20 2017-07-11 BMI 37.39 kg/m2 2017-07-11 Blood pressure systolic 132 mmHg 2017-07-11 Blood pressure diastolic 74 mmHg 2017-07-11 MEDICATIONS Medication Instructions Dosage Frequency Start Date End Date Duration Status Combivent Respimat 20-100 MCG/ACT Inhalation Four times a day 1 puff 6h 30 days Active Ranexa 1000 MG Orally Twice a day 1 tablet 12h Active Dicyclomine HCl 20 mg Orally Four times a day as needed 1 tablet Active Amlodipine Besylate 5 MG Orally Once a day 1 tablet 24h Active Duloxetine HCl 60 mg Orally Once a day 2 capsule 24h Active Pantoprazole Sodium 40 mg Orally Once a day 1 tablet 24h Jun, 90 days Active Nitrostat 0.4 MG Sublingual q5 min max 3 doses in 15 min as needed for angina 1 tablet Not-Taking Abilify 2 MG Orally Once a day 1 tablet 24h 30 day(s) Active Zetia 10 MG Orally Once a day 1 tablet 24h Active Symbicort Not-Taking BusPIRone HCl 10 mg Orally Twice a day 2 tablets 12h 30 days Active Ventolin HFA 108 (90 Base) MCG/ACT Inhalation every 6 hrs 2 puffs as needed 6h Not-Taking Meclizine HCl 25 TAKE 1 TABLET BY MOUTH FOUR TIMES DAILY NEEDED FOR VERTIGO 30 Active Baclofen 20 TAKE 1 TABLET BY MOUTH THREE TIMES DAILY WITH FOOD OR MILK 30 Active Atorvastatin Calcium 80 MG Orally Once a day 1 tablet 24h 90 Active Effient 10 MG Orally Once a day 1 tablet 24h Active Trazodone HCl 50 MG Orally Once a day 1 - 2 tablet at bedtime as needed 24h Active Isosorbide Mononitrate ER 60 MG Orally Once a day 1 tablet in the morning 24h 90 days Active Xarelto 20 MG Orally Once a day 1 tablet with food 24h 30 Active Praluent 150 MG/ML Subcutaneous every 2 weeks 1 ml Not-Taking Metoprolol Succinate ER 50 MG Orally 2 times a day 1 tablet 12h Active Plavix 75 MG Orally Once a day 1 tablet 24h Active Promethazine HCl 50 MG Orally every 6 hrs 0.5 tablet as needed for nausea 6h 15 Jun, 2016 Active Tylenol Not-Taking RESULTS No Results PROCEDURES Procedure Date Ordered Result Body Site [facility] VISIT ESTABLISHED PATIENT Jul 11, 2017 Media Visit needs to be added with another visit on the same day Jul 11, 2017 INSTRUCTIONS MEDICATIONS ADMINISTERED No [...] 02/2017 Hospitalization History For surgeries Hospitalization History [facility] in his 20's
--- OUTSIDE RECORDS SUMMARY | 2018-02-13 15:03 | XMS REPORT ---
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 Name Role Phone JAMESCHANTELL Unavailable PROBLEMS Type Condition ICD9-CM Code [id number] Code Onset Dates Condition Status SNOMED Code Problem History of stroke Z86.73 Active 003313083 Problem S/P CABG x 5 Z95.1 Active 060495287 Problem Anemia D64.9 Active 930765982 Problem Post traumatic stress disorder (PTSD) F43.10 Active 04131604 Problem Essential hypertension I10 Active 36070885 Problem Panic attack F41.0 Active 325895400 Problem Sciatica, unspecified side M54.30 Active 49060988 Problem Generalized anxiety disorder F41.1 Active 62244759 Problem Sciatica of left side M54.32 Active 76760008 Problem Intractable migraine without aura and with status migrainosus G43.011 Active 258967401 Problem Cannabis abuse F12.10 Active 73860844 Problem 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 Active 25058750 Problem Hyperlipidemia, unspecified E78.5 Active 69485628 Problem 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 Active 12046156 Problem Chronic obstructive pulmonary disease, unspecified J44.9 Active 57959855 Problem Hepatic steatosis K76.0 Active 022653697 Problem Other elevated white blood cell count D72.828 Active 102727280 Problem Mixed obsessional thoughts and acts F42.2 Active 19680355 Problem Diarrhea, unspecified type R19.7 Active 13932491 Problem Depression F32.9 Active 48440458 Problem GERD (gastroesophageal reflux disease) K21.9 Active 069151625 Problem Hyperplastic colonic polyp, unspecified part of colon K63.5 Active 407098557 Problem Anticoagulant long-term use Z79.01 Active 653456382 Problem Prediabetes R73.03 Active 863720164 Problem Vertigo R42 Active 335380981 Problem Paroxysmal atrial fibrillation I48.0 Active 587925847 Problem 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 Active 967650407 ALLERGIES Substance Reaction Event Type Date Status Vicodin Unknown Drug Allergy Aug, Active PredniSONE Unknown Drug Allergy Aug, Active ENCOUNTERS Encounter Location Date Diagnosis [place] [id number] [place] [address] Nov, Chronic combined systolic (congestive) and diastolic ( congestive) heart failure I50.42 ; Chronic obstructive pulmonary disease, unspecified J44.9 ; Essential hypertension I10 ; Hyperlipidemia, unspecified E78.5 ; Anticoagulant long-term use Z79.01 ; Depression F32.9 ; Paroxysmal atrial fibrillation I48.0 and 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 [place] [address] [address] Oct, Chronic obstructive pulmonary disease, unspecified J44.9 [place] [address] [address] Sep, 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 ; Mixed obsessional thoughts and acts F42.2 and Cannabis abuse F12.10 [place] [id number] [place] [address] Aug, 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 ; Mixed obsessional thoughts and acts F42.2 and Cannabis abuse F12.10 [place] [id number] [place] [address] Aug, 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 and Mixed obsessional thoughts and acts F42.2 [place] [address] [address] Jul, 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 and Mixed obsessional thoughts and acts F42.2 [place] [address] [address] Jul, 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 and Mixed obsessional thoughts and acts F42.2 [place] [id number] [place] [address] Jul, 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 ; Mixed obsessional thoughts and acts F42.2 and Cannabis abuse F12.10 [place] [id number] [place] [address] Jun, 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 ; Mixed obsessional thoughts and acts F42.2 and Cannabis abuse F12.10 [place] [id number] [place] [address] Jun, [place] [id number] [place] [address] Jun, 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 ; Mixed obsessional thoughts and acts F42.2 and Cannabis abuse F12.10 [place] [id number] [place] [address] 238[address] May, 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 ; Mixed obsessional thoughts and acts F42.2 and Cannabis abuse F12.10 [place] [id number] [place] [address] May, 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 [place] [id number] [place] [address] Mar, [place] [id number] [place] [address] 45[address] Mar, Chronic combined systolic (congestive) and diastolic ( congestive) heart failure I50.42 ; Diarrhea, unspecified type R19.7 ; Hepatic steatosis K76.0 and Generalized postprandial abdominal pain R10.84 [place] [id number] [place] [address] Jan, Generalized abdominal pain R10.84 [place] [address] [address] Jan, Generalized abdominal pain R10.84 ; Generalized postprandial abdominal pain R10.84 ; Diarrhea, unspecified type R19.7 ; Non- intractable vomiting with nausea, unspecified vomiting type R11.2 ; GERD ( gastroesophageal reflux disease) K21.9 ; S/P CABG x 5 Z95.1 ; Prominent abdominal aortic pulsation R09.89 and Other elevated white blood cell count D72.828 [place] [address] [address] Jan, Vertigo R42 [place] [address] [place] [address] [address]- [address] Jan, Other elevated white blood cell count D72.828 [place] [address] [address] Jan, Other elevated white blood cell count D72.828 [place] [address] [address] Jan, Hyperlipidemia, unspecified E78.5 ; Sciatica of left side M54.32 ; Weight loss R63.4 and Night sweats R61 [facility] [address] [id number] December, Dental caries K02.9 and Dental examination Z01.20 [place] [id number] [place] [address] Oct, Vertigo R42 ; Nausea R11.0 ; Chronic obstructive pulmonary disease, unspecified J44.9 ; GERD (gastroesophageal reflux disease) K21.9 ; S/P CABG x 5 Z95.1 ; Hyperlipidemia, unspecified E78.5 ; Essential hypertension I10 ; Paroxysmal atrial fibrillation I48.0 and Depression F32.9 [place] [id number] [place] [address] Oct, [facility] [id number] [place] [address] 78[address] Oct, Hyperlipidemia, unspecified E78.5 [facility] [id number] [place] [address] 957[address]- 26[address] 16 Oct, 2016 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 [facility] [id number] [place] [id number] Oct, Vertigo R42 [facility] [address] 1075[address]- [address] Oct, [facility] [address] 769841- [address] Sep, [facility] [address] 899378- [address] Aug, 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 [place] [address] [address] 05 Jul, 2016 Depression F32.9 ; Generalized anxiety disorder F41.1 and Panic attack F41.0 [facility] [address] [id number] Jul, 2016 Dental examination Z01.20 [facility] [address] [address] 30 Jun, 2016 [facility] [id number] [place] [address] 30 Jun, 2016 Encounter for dental examination and cleaning without abnormal findings Z01.20 [facility] [id number] [place] [address]- [address] 15 Jun, 2016 Intractable migraine without aura and with status migrainosus G43.011 ; 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 ; B12 deficiency E53.8 and Depression F32.9 [facility] [id number] [place] [address]- [address] 15 Jun, 2016 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 [facility] [id number] [place] [address]- [address] Jun, Depression F32.9 ; Generalized anxiety disorder F41.1 ; Post traumatic stress disorder (PTSD) F43.10 and Panic attack F41.[address] [address] Jun, [place] [address] [address] Jun, [place] [address] [address] May, [address] [address] May, Elevated glucose R73.09 ; Depression F32.9 ; Hyperlipidemia , unspecified E78.5 ; Prediabetes R73.03 ; B12 deficiency E53.8 ; Vertigo R42 ; Seborrheic keratosis L82.1 ; Chronic obstructive pulmonary disease, unspecified J44.9 and Blurry vision H53.8 [place] [id number] [place] [address]- [address] Apr, [address] [address] Jan, Elevated glucose R73.09 ; Anemia D64.9 and Weakness generalized R53.1 [place] [id number] [place] [address]- [address] Jan, [address] [address] Jan, [place] [id number] [place] [address] 73782- [address] December, Sciatica, left side M54.32 [place] [id number] [place] [address] 65790- [address] Nov, Sciatica, unspecified side M54.30 ; Chronic obstructive pulmonary disease, unspecified J44.9 ; GERD (gastroesophageal reflux disease) K21.9 ; 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 and Pre-syncope R55 [place] [address] [address] Sep, [place] [address] [address] Aug, Coumadin toxicity, accidental or unintentional, subsequent encounter T60.4X1D [place] [address] [address] Aug, [place] [address] 83209[address] Aug, Coumadin toxicity, accidental or unintentional, subsequent encounter T60.4X1D ; Atherosclerosis of coronary artery bypass graft(s) without angina pectoris I25.810 and History of stroke Z86.73 [facility] [address] [address] Aug, Ear canal abrasion, left, initial encounter S00.412A and Anticoagulant long-term use Z79.01 [place] [address] [address] Jul, [place] [address] [address] Jul, Anticoagulant long-term use Z79.01 ; Polyarthralgia M25.50 ; Sciatica, left M54.32 ; Costochondritis M94.0 ; COPD exacerbation J44.1 and Depression F32.9 [place] [id number] [place] [address] May, [place] [address] [address] Apr, Hyperlipidemia 272.4 ; Coronary artery disease [...] Reason: f/u VITAL SIGNS Height 73 in 2017-08-14 Weight 280.3 lbs 2017-08-14 Heart Rate 80 bpm 2017-08-14 Respiratory Rate 20 2017-08-14 BMI 36.98 kg/m2 2017-08-14 Blood pressure systolic 120 mmHg 2017-08-14 Blood pressure diastolic 74 mmHg 2017-08-14 MEDICATIONS Medication Instructions Dosage Frequency Start Date End Date Duration Status Duloxetine HCl 60 mg Orally Once a day 2 capsule 24h Active Ranexa 1000 MG Orally Twice a day 1 tablet 12h Active Dicyclomine HCl 20 mg Orally Four times a day as needed 1 tablet Active Combivent Respimat 20-100 MCG/ACT Inhalation Four times a day 1 puff 6h 30 days Active Plavix 75 MG Orally Once a day 1 tablet 24h Active Xarelto 20 MG Orally Once a day 1 tablet with food 24h 30 Active Atorvastatin Calcium 80 MG Orally Once a day 1 tablet 24h 90 Active Zetia 10 MG Orally Once a day 1 tablet 24h Active Amlodipine Besylate 5 MG Orally Once a day 1 tablet 24h Active Praluent 150 MG/ML Subcutaneous every 2 weeks 1 ml Not-Taking Effient 10 MG Orally Once a day 1 tablet 24h Active Symbicort Not-Taking Meclizine HCl 25 TAKE 1 TABLET BY MOUTH FOUR TIMES DAILY NEEDED FOR VERTIGO 30 Active Isosorbide Mononitrate ER 60 MG Orally Once a day 1 tablet in the morning 24h 90 days Active Baclofen 20 TAKE 1 TABLET BY MOUTH THREE TIMES DAILY WITH FOOD OR MILK 30 Active Metoprolol Succinate ER 50 MG Orally 2 times a day 1 tablet 12h Active Ventolin HFA 108 (90 Base) MCG/ACT Inhalation every 6 hrs 2 puffs as needed 6h Not-Taking Pantoprazole Sodium 40 mg Orally Once a day 1 tablet 24h Jun, 90 days Active Abilify 2 MG Orally Once a day 1 tablet 24h Active Tylenol Not-Taking BusPIRone HCl 10 mg Orally Twice a day 2 tablets 12h Active Trazodone HCl 50 MG Orally Once a day 1 - 2 tablet at bedtime as needed 24h Active Promethazine HCl 50 MG Orally every 6 hrs 0.5 tablet as needed for nausea 6h 15 Jun, 2016 Active Nitrostat 0.4 MG Sublingual q5 min max 3 doses in 15 min as needed for angina 1 tablet Not-Taking RESULTS No Results PROCEDURES Procedure Date Ordered Result Body Site [facility] VISIT ESTABLISHED PATIENT Aug 14, 2017 Media Visit needs to be added with another visit on the same day Aug 14, 2017 INSTRUCTIONS MEDICATIONS ADMINISTERED No Known Medications [...] 02/2017 Hospitalization History For surgeries Hospitalization History [facility] in his 20's
--- OUTSIDE RECORDS SUMMARY | 2018-02-13 15:15 | XMS REPORT | Continuity of Care Document ---
Author Author [facility] Organization [facility] Address Unknown Phone Unavailable Allergies Active Description Code Type Severity Reaction Onset Reported/Identified Relationship to Patient Clinical Status Yes bee venom (honey bee) [id number] Drug Allergy Unknown N/A 04/23/2015 Yes prednisone [id number] Drug Allergy Moderate RASH 02/25/2017 Yes hydrocodone [id number] Drug Allergy Unknown N/A 02/25/2017 Yes venom-honey bee [id number] Drug Allergy Unknown N/A 02/25/2017 Medications There is no data. Problems Date Dx Coded Attending Type Code Diagnosis Diagnosed By 04/27/2015 JAMEEL PIMENTEL MD Ot 272.4 HYPERLIPIDEMIA NEC/NOS 04/27/2015 JAMEEL PIMENTEL MD Ot 278.01 MORBID OBESITY 04/27/2015 JAMEEL PIMENTEL MD Ot 327.23 OBSTRUCTIVE SLEEP APNEA (ADULT) (PEDIATR 04/27/2015 JAMEEL PIMENTEL MD Ot 401.9 HYPERTENSION NOS 04/27/2015 JAMEEL PIMENTEL MD Ot 411.1 INTERMED CORONARY SYND 04/27/2015 JAMEEL PIMENTEL MD Ot 414.01 CORONARY ATHEROSCLEROSIS OF [place] CORON 04/27/2015 JAMEEL PIMENTEL MD Ot 414.2 CHRONIC TOTAL OCCLUSION OF CORONARY [place] 04/27/2015 JAMEEL PIMENTEL MD Ot 427.31 ATRIAL FIBRILLATION 04/27/2015 JAMEEL PIMENTEL MD Ot 427.32 ATRIAL FLUTTER 04/27/2015 JAMEEL PIMENTEL MD Ot 996.72 OTH COMPLICATIONS DUE TO OTH CARD DEVICE 04/27/2015 JAMEEL PIMENETL MD Ot V12.54 PERSONAL HX OF TIA, [...] 07/08/2015 JAMEEL PIMENTEL MD Ot Z95.5 07/08/2015 DEONTE TUCKER MD Ot F17.211 NICOTINE DEPENDENCE, CIGARETTES, IN [place] 07/08/2015 DEONTE TUCKER MD Ot J44.9 CHRONIC OBSTRUCTIVE PULMONARY DISEASE, U 07/08/2015 DEONTE TUCKER MD Ot R05 COUGH 07/08/2015 DEONTE TUCKER MD Ot R63.5 ABNORMAL WEIGHT GAIN 07/25/2015 JOSE GUADALUPE KENNEDY Ot G47.33 OBSTRUCTIVE SLEEP APNEA (ADULT) (PEDIATR 08/02/2015 JAMEEL PIMENTEL MD Ot I20.9 [...] INI 08/31/2015 ERIC WALL APRN Ot Y92.[address] [facility] [address] [facility] (PRIVATE 08/31/2015 ERIC WALL APRN Ot Y99.8 OTHER EXTERNAL CAUSE STATUS 08/31/2015 ERIC WALL APRN Ot Z79.01 [facility] (CURRENT) USE OF ANTICOAGULANT 08/31/2015 ERIC WALL APRN Ot Z86.73 PRSNL HX OF TIA (TIA), AND CEREB INFRC W 09/10/2015 MARY JON ROLLING ATTENDANT Ot G47.33 OBSTRUCTIVE SLEEP APNEA (ADULT) (PEDIATR 09/11/2015 JAMEEL PIMENTEL MD Ot I20.9 ANGINA PECTORIS, UNSPECIFIED 09/11/2015 JAMEEL PIMENTEL MD Ot Z95.5 PRESENCE OF CORONARY ANGIOPLASTY IMPLANT 09/14/2015 JAMEEL PIMENTEL MD Ot I20.9 09/14/2015 JAMEEL PIMENTEL MD Ot Z95.5 09/14/2015 JAMEEL PIMENTEL MD J Ot I20.9 09/14/2015 JAMEEL PIMENTEL MD Ot [...] Z95.5 PRESENCE OF CORONARY ANGIOPLASTY IMPLANT 02/29/2016 ANAL UISA NOVA FACC, JT FACP CCDS Ot E66.9 OBESITY, UNSPECIFIED 02/29/2016 ANA LUISA NOVA FACC, JT FACP CCDS Ot E78.5 HYPERLIPIDEMIA, UNSPECIFIED 02/29/2016 ANA LUISA NOVA FACC, JT FACP CCDS Ot G47.30 SLEEP APNEA, UNSPECIFIED 02/29/2016 ANA LUISA NOVA FACC, JT FACP CCDS Ot I10 ESSENTIAL (PRIMARY) HYPERTENSION 02/29/2016 ANA LUISA NOVA FACC, JT FACP CCDS Ot I25.118 ATHSCL HEART DISEASE OF [place] COR ART W 02/29/2016 ANA LUISA NOVA FACC, JT FACP CCDS Ot I25.82 CHRONIC TOTAL OCCLUSION OF CORONARY [place] 02/29/2016 ANA LUISA NOVA FACC, JT FACP CCDS Ot I48.91 UNSPECIFIED ATRIAL FIBRILLATION 02/29/2016 ANA LUISA NOVA FACC, JT FACP CCDS Ot Z68.38 BODY MASS INDEX (BMI) 38.0-38.9, ADULT 02/29/2016 ANA LUISA NOVA FACC, ALI FACP CCDS Ot Z79.01 [employer] (CURRENT) USE OF ANTICOAGULANT 02/29/2016 ANA LUISA NOVA FACC, ALI FACP CCDS Ot Z79.899 OTHER HYGIENE TE[employer]ER (CURRENT) DRUG THERAPY 02/29/2016 ANA LUISA NOVA FACC, ALI FACP CCDS Ot Z82.49 FAMILY HX OF ISCHEM HEART DIS AND OTH DI 02/29/2016 ANA LUISA NOVA FACC, ALI FACP CCDS Ot Z86.73 PRSNL HX OF TIA (TIA), AND CEREB INFRC W 02/29/2016 ANA LUISA NOVA FACC, ALI FACP CCDS Ot Z95.1 PRESENCE OF AORTOCORONARY BYPASS GRAFT 03/28/2016 ANA LUISA NOVA FACC, ALI FACP CCDS Ot E66.9 OBESITY, UNSPECIFIED 03/28/2016 ANA LUISA NOVA FACC, ALI FACP CCDS Ot E78.5 HYPERLIPIDEMIA, UNSPECIFIED 03/28/2016 ANA LUISA NOVA FACC, ALI FACP CCDS Ot G47.30 SLEEP APNEA, UNSPECIFIED 03/28/2016 ANA LUISA NOVA FACC, ALI FACP CCDS Ot I10 ESSENTIAL (PRIMARY) HYPERTENSION 03/28/2016 ANA LUISA NOVA FACC, ALI FACP CCDS Ot I25.118 ATHSCL HEART DISEASE OF [place] COR ART W 03/28/2016 ANA LUISA NOVA FACC, ALI FACP CCDS Ot I25.82 CHRONIC TOTAL OCCLUSION OF CORONARY [place] 03/28/2016 ANA LUISA NOVA FACC, ALI FACP CCDS Ot I48.91 UNSPECIFIED ATRIAL FIBRILLATION 03/28/2016 ANA LUISA NOVA FACC, ALI FACP CCDS Ot Z68.38 BODY MASS INDEX (BMI) 38.0-38.9, ADULT 03/28/2016 ANA LUISA NOVA FACC, ALI FACP CCDS Ot Z79.01 [facility] (CURRENT) USE OF ANTICOAGULANT 03/28/2016 ANA LUISA NOVA FACC, ALI FACP CCDS Ot Z79.899 OTHER [facility] (CURRENT) DRUG THERAPY 03/28/2016 ANA LUISA NOVA FACC, ALI FACP CCDS Ot Z82.49 FAMILY HX OF ISCHEM HEART DIS AND OTH DI 03/28/2016 JT OROSCO MD, FACC FACP CCDS Ot Z86.73 PRSNL HX OF TIA (TIA), AND CEREB INFRC W 03/28/2016 JT OROSCO MD, FACC FACP CCDS Ot Z95.1 PRESENCE OF AORTOCORONARY BYPASS GRAFT 04/13/2016 JT OROSCO MD, FACC FACP CCDS Ot E66.9 OBESITY, UNSPECIFIED 04/13/2016 JT OROSCO MD, FACC FACP CCDS Ot E78.5 HYPERLIPIDEMIA, UNSPECIFIED 04/13/2016 ANA LUISA NOVA FACC, ALI FACP CCDS Ot G47.30 SLEEP APNEA, UNSPECIFIED 04/13/2016 ANA LUISA NOVA FACC ALI FACP CCDS Ot I10 ESSENTIAL (PRIMARY) HYPERTENSION 04/13/2016 JT OROSCO MD, FACC FACP CCDS Ot I25.118 ATHSCL HEART DISEASE OF [place] COR ART W 04/13/2016 JT OROSCO MD, FACC FACP CCDS Ot I25.82 CHRONIC TOTAL OCCLUSION OF CORONARY [place] 04/13/2016 JT OROSCO MD, FACC FACP CCDS Ot I48.91 UNSPECIFIED ATRIAL FIBRILLATION 04/13/2016 JT OROSCO MD, FACC FACP CCDS Ot Z68.38 BODY MASS INDEX (BMI) 38.0-38.9, ADULT 04/13/2016 JT OROSCO MD, FACC FACP CCDS Ot Z79.01 [facility] (CURRENT) USE OF ANTICOAGULANT 04/13/2016 JT OROSCO MD, FACC FACP CCDS Ot Z79.899 OTHER [facility] (CURRENT) DRUG THERAPY 04/13/2016 JT OROSCO MD, [...] FACP CCDS Ot E66.9 OBESITY, UNSPECIFIED 04/16/2016 ANA LUISA NOVA FACC, ALI FACP CCDS Ot E78.5 HYPERLIPIDEMIA, UNSPECIFIED 04/16/2016 ANA LUISA NOVA FACC, ALI FACP CCDS Ot G47.30 SLEEP APNEA, UNSPECIFIED 04/16/2016 ANA LUISA NOVA FACC, JT FACP CCDS Ot I10 ESSENTIAL (PRIMARY) HYPERTENSION 04/16/2016 ANA LUISA NOVA FACC, JT FACP CCDS Ot I25.118 ATHSCL HEART DISEASE OF [place] COR ART W 04/16/2016 JT OROSCO MD, FACC FACP CCDS Ot I25.82 CHRONIC TOTAL OCCLUSION OF CORONARY [place] 04/16/2016 ANA LUISA NOVA FACC, JT FACP CCDS Ot I48.91 UNSPECIFIED ATRIAL FIBRILLATION 04/16/2016 ANA LUISA NOVA FACC, JT FACP CCDS Ot Z68.38 BODY MASS INDEX (BMI) 38.0-38.9, ADULT 04/16/2016 JT OROSCO MD, FACC FACP CCDS Ot Z79.01 [facility] (CURRENT) USE OF ANTICOAGULANT 04/16/2016 JT OROSCO MD, FACC FACP CCDS Ot Z79.899 OTHER [facility] (CURRENT) DRUG THERAPY 04/16/2016 JT OROSCO MD, FACC FACP CCDS Ot Z82.49 FAMILY HX OF ISCHEM HEART DIS AND OTH DI 04/16/2016 JT OROSCO MD, FACC FACP CCDS Ot Z86.73 PRSNL HX OF TIA (TIA), AND CEREB INFRC W 04/16/2016 JT OROSCO MD, FACC FACP CCDS Ot Z95.1 PRESENCE OF AORTOCORONARY BYPASS GRAFT 06/18/2016 ERIC WALL APRN Ot I25.10 ATHSCL HEART DISEASE OF [place] CORONARY 06/18/2016 ERIC WALL APRN Ot I48.2 CHRONIC ATRIAL FIBRILLATION 06/18/2016 ERIC WALL APRN Ot J44.9 CHRONIC OBSTRUCTIVE PULMONARY DISEASE, U 06/18/2016 ERIC WALL APRN Ot R00.2 PALPITATIONS 06/18/2016 ERIC WALL APRN Ot R07.89 OTHER CHEST PAIN 06/18/2016 ERIC WALL APRN Ot R51 HEADACHE 06/18/2016 ERIC WALL APRN Ot Z79.01 [employer]GIENE TE[employer]ER (CURRENT) USE OF ANTICOAGULANT 06/18/2016 ERIC WALL APRN Ot Z79.02 [employer] (CURRENT) USE OF ANTITHROMBOTI 06/18/2016 ERIC WALL APRN Ot Z79.899 OTHER [facility] (CURRENT) DRUG THERAPY 06/18/2016 ERIC WALL APRN Ot Z87.891 PERSONAL HISTORY OF NICOTINE DEPENDENCE [...] Ot Z95.5 PRESENCE OF CORONARY ANGIOPLASTY IMPLANT 01/31/2017 ROJAS NOVA, JUNIOR Molina Ot R09.89 OTH SYMPTOMS AND SIGNS INVOLVING THE CIR 02/01/2017 SHA HOLDER MD Ot E78.00 PURE HYPERCHOLESTEROLEMIA, UNSPECIFIED 02/01/2017 SHA HOLDER MD Ot F32.9 MAJOR DEPRESSIVE DISORDER, SINGLE EPISOD 02/01/2017 SHA HOLDER MD Ot F41.9 ANXIETY DISORDER, UNSPECIFIED 02/01/2017 SHA HOLDER MD Ot G47.30 SLEEP APNEA, UNSPECIFIED 02/01/2017 SHA HOLDER MD Ot I25.10 ATHSCL HEART DISEASE OF [place] CORONARY 02/01/2017 SHA HOLDER MD Ot I48.91 UNSPECIFIED ATRIAL FIBRILLATION 02/01/2017 SHA HOLDER MD Ot J44.9 CHRONIC OBSTRUCTIVE PULMONARY DISEASE, U 02/01/2017 SHA HOLDER MD Ot R10.32 LEFT LOWER QUADRANT PAIN 02/01/2017 SHA HOLDER MD, Ot R10.84 GENERALIZED ABDOMINAL PAIN 02/01/2017 SHA HOLDER MD, Ot Z79.01 [facility] (CURRENT) USE OF ANTICOAGULANT 02/01/2017 SHA HOLDER MD, Ot Z86.73 PRSNL HX OF TIA (TIA), AND CEREB INFRC W 02/01/2017 SHA HOLDER MD, Ot Z87.891 PERSONAL HISTORY OF NICOTINE DEPENDENCE 02/01/2017 SHA HOLDER MD, Ot Z95.5 PRESENCE OF CORONARY ANGIOPLASTY IMPLANT 02/07/2017 JUNIOR XIE MD Ot R09.89 OTH SYMPTOMS AND SIGNS INVOLVING THE CIR 02/07/2017 JUNIOR XIE MD Ot R09.89 OTH SYMPTOMS AND SIGNS INVOLVING THE CIR 02/07/2017 JUNIOR XIE MD Ot R09.89 OTH SYMPTOMS AND SIGNS INVOLVING THE CIR 02/22/2017 MANOJ BAUMANN MD, Ot K21.9 GASTRO-ESOPHAGEAL REFLUX DISEASE WITHOUT 02/22/2017 MANOJ BAUMANN MD Ot Z01.818 ENCOUNTER FOR OTHER PREPROCEDURAL EXAMIN 02/25/2017 MANOJ BAUMANN MD Ot E78.00 PURE HYPERCHOLESTEROLEMIA, UNSPECIFIED 02/25/2017 MANOJ BAUMANN MD Ot F17.210 NICOTINE DEPENDENCE, CIGARETTES, UNCOMPL 02/25/2017 MANOJ BAUMANN MD Ot I10 ESSENTIAL (PRIMARY) HYPERTENSION 02/25/2017 MANOJ BAUMANN MD, Ot I25.10 ATHSCL HEART DISEASE OF [place] CORONARY 02/25/2017 MANOJ BAUMANN MD Ot I48.91 UNSPECIFIED ATRIAL FIBRILLATION 02/25/2017 MANOJ BAUMANN MD Ot J21.9 ACUTE BRONCHIOLITIS, UNSPECIFIED 02/25/2017 MANOJ BAUMANN MD, Ot K25.9 GASTRIC ULCER, UNSP ACUTE OR CHRONIC, 02/25/2017 MANOJ BAUMANN MD Ot K26.9 DUODENAL ULCER, UNSP ACUTE OR CHRONIC 02/25/2017 MANOJ BAUMANN MD Ot K63.5 POLYP OF COLON 02/25/2017 MANOJ BAUMANN MD Ot Z79.899 OTHER [facility] (CURRENT) DRUG THERAPY 02/25/2017 MANOJ BAUMANN MD, Ot Z86.73 PRSNL HX OF TIA (TIA), AND CEREB INFRC W 02/25/2017 MANOJ BAUMANN MD, Ot Z95.1 PRESENCE OF AORTOCORONARY BYPASS GRAFT 02/25/2017 MANOJ BAUMANN MD, Ot Z95.5 PRESENCE OF CORONARY ANGIOPLASTY IMPLANT 03/05/2017 JUNIOR XIE MD Ot R09.89 OTH SYMPTOMS AND SIGNS INVOLVING THE CIR 03/05/2017 JUNIOR XIE MD Ot Z95.1 PRESENCE OF AORTOCORONARY BYPASS GRAFT 03/29/2017 JUNIOR XIE MD Ot I25.10 ATHSCL HEART DISEASE OF [place] CORONARY 03/29/2017 JUNIOR XIE MD Ot N20.0 CALCULUS OF KIDNEY 03/29/2017 JUNIOR XIE MD Ot R10.84 GENERALIZED ABDOMINAL PAIN 03/29/2017 JUNIOR XIE MD Ot R19.7 DIARRHEA, UNSPECIFIED 04/03/2017 JUNIOR XIE MD Ot I25.10 ATHSCL HEART DISEASE OF [place] CORONARY 04/03/2017 JUNIOR XIE MD Ot N20.0 CALCULUS OF KIDNEY 04/03/2017 JUNIOR XIE MD Ot R10.84 GENERALIZED ABDOMINAL PAIN 04/03/2017 JUNIOR XIE MD Ot R19.7 DIARRHEA, UNSPECIFIED 04/11/2017 JUNIOR XIE MD Ot R09.89 OTH SYMPTOMS AND SIGNS INVOLVING THE CIR 04/11/2017 JUNIOR XIE MD Ot Z95.1 PRESENCE OF AORTOCORONARY BYPASS GRAFT 04/19/2017 JUNIOR XIE MD Ot I25.10 ATHSCL HEART DISEASE OF [place] CORONARY 04/19/2017 JUNIOR XIE MD Ot N20.0 CALCULUS OF KIDNEY 04/19/2017 JUNIOR XIE MD Ot R10.84 GENERALIZED ABDOMINAL PAIN 04/19/2017 JUNIOR XIE MD Ot R19.7 DIARRHEA, UNSPECIFIED 07/03/2017 KATHY JOHNSON DO Ot E11.9 TYPE 2 DIABETES MELLITUS WITHOUT COMPLIC 07/03/2017 ALEX JIMENEZ KATHY K Ot E78.00 PURE HYPERCHOLESTEROLEMIA, UNSPECIFIED 07/03/2017 KATHY JOHNSON DO Ot F12.10 CANNABIS ABUSE, UNCOMPLICATED 07/03/2017 KATHY JOHNSON DO Ot F32.9 MAJOR DEPRESSIVE DISORDER, SINGLE EPISOD 07/03/2017 KATHY JOHNSON DO Ot F41.9 ANXIETY DISORDER, UNSPECIFIED 07/03/2017 KATHY JOHNSON DO Ot G47.30 SLEEP APNEA, UNSPECIFIED 07/03/2017 KATHY JOHNSON DO Ot I10 ESSENTIAL (PRIMARY) HYPERTENSION 07/03/2017 KATHY JOHNSON DO Ot I25.10 ATHSCL HEART DISEASE OF [place] CORONARY 07/03/2017 KATHY JOHNSON DO Ot I48.91 UNSPECIFIED ATRIAL FIBRILLATION 07/03/2017 KATHY JOHNSON DO Ot I73.9 PERIPHERAL VASCULAR DISEASE, UNSPECIFIED 07/03/2017 KATHY JOHNSON DO Ot J44.9 CHRONIC OBSTRUCTIVE PULMONARY DISEASE, U 07/03/2017 KATHY JOHNSON DO Ot K21.9 GASTRO-ESOPHAGEAL REFLUX DISEASE WITHOUT 07/03/2017 KATHY JOHNSON DO Ot R45.851 SUICIDAL IDEATIONS 07/03/2017 KATHY JOHNSON DO Ot Z80.1 FAMILY HISTORY OF MALIG NEOPLASM OF [place] 07/03/2017 KATHY JOHNSON DO Ot Z82.49 FAMILY HX OF ISCHEM HEART DIS AND OTH DI 07/03/2017 KATHY JOHNSON DO Ot Z86.73 PRSNL HX OF TIA (TIA), AND CEREB INFRC W 07/03/2017 KATHY JOHNSON DO Ot Z87.19 PERSONAL HISTORY OF OTHER DISEASES OF TH 07/03/2017 KATHY JOHNSON DO Ot Z87.891 PERSONAL HISTORY OF NICOTINE DEPENDENCE 07/03/2017 KATHY JOHNSON DO Ot Z95.1 PRESENCE OF AORTOCORONARY BYPASS GRAFT 07/03/2017 KATHY JOHNSON DO Ot Z95.5 PRESENCE OF CORONARY ANGIOPLASTY IMPLANT 07/11/2017 KATHY JOHNSON DO Ot E11.9 TYPE 2 DIABETES MELLITUS WITHOUT COMPLIC 07/11/2017 KATHY JOHNSON DO Ot E78.00 PURE HYPERCHOLESTEROLEMIA, UNSPECIFIED 07/11/2017 KATHY JOHNSON DO Ot F12.10 CANNABIS ABUSE, UNCOMPLICATED 07/11/2017 ALEX JIMENEZ KATHY K Ot F32.9 MAJOR DEPRESSIVE DISORDER, SINGLE EPISOD 07/11/2017 ALEX DO KATHY K Ot F41.9 ANXIETY DISORDER, UNSPECIFIED 07/11/2017 ALEX JIMENEZ KATHY Medhi Ot G47.30 SLEEP APNEA, UNSPECIFIED 07/11/2017 ALEX JIMENEZ KATHY K Ot I10 ESSENTIAL (PRIMARY) HYPERTENSION 07/11/2017 ALEX JIMENEZ KATHY K Ot I25.10 ATHSCL HEART DISEASE OF [place] CORONARY 07/11/2017 ALEX DOKATHY Ot I48.91 UNSPECIFIED ATRIAL FIBRILLATION 07/11/2017 ALEX KATHY K Ot I73.9 PERIPHERAL VASCULAR DISEASE, UNSPECIFIED 07/11/2017 ALEX DO KATHY K Ot J44.9 CHRONIC OBSTRUCTIVE PULMONARY DISEASE, U 07/11/2017 ALEX JIMENEZ KATHY K Ot K21.9 GASTRO-ESOPHAGEAL REFLUX DISEASE WITHOUT 07/11/2017 ALEX KATHY K Ot R45.851 SUICIDAL IDEATIONS 07/11/2017 ALEX DO KATHY K Ot Z80.1 FAMILY HISTORY OF MALIG NEOPLASM OF [place] 07/11/2017 ALEX KATHY JIMENEZ Ot Z82.49 FAMILY HX OF ISCHEM HEART DIS AND OTH DI 07/11/2017 ALEX KATHY JIMENEZ Ot Z86.73 PRSNL HX OF TIA (TIA), AND CEREB INFRC W 07/11/2017 ALEX DOKATHY Ot Z87.19 PERSONAL HISTORY OF OTHER DISEASES OF TH 07/11/2017 ALEX DO KATHY K Ot Z87.891 PERSONAL HISTORY OF NICOTINE DEPENDENCE 07/11/2017 ALEX DOKATHY Ot Z95.1 PRESENCE OF AORTOCORONARY BYPASS GRAFT 07/11/2017 KATHY JOHNSON DO Ot Z95.5 PRESENCE OF CORONARY ANGIOPLASTY IMPLANT 07/12/2017 KATHY JOHNSON DO Ot E11.9 TYPE 2 DIABETES MELLITUS WITHOUT COMPLIC 07/12/2017 KATHY JOHNSON DO Ot E78.00 PURE HYPERCHOLESTEROLEMIA, UNSPECIFIED 07/12/2017 ALEX DO KATHY K Ot F12.10 CANNABIS ABUSE, UNCOMPLICATED 07/12/2017 ALEX KATHY K Ot F32.9 MAJOR DEPRESSIVE DISORDER, SINGLE EPISOD 07/12/2017 ALEX JIMENEZ KATHY Harding Ot F41.9 ANXIETY DISORDER, UNSPECIFIED 07/12/2017 ALEX JIMENEZ KATHY Harding Ot G47.30 SLEEP APNEA, UNSPECIFIED 07/12/2017 ALEX JIMENEZ KATHY Mehdi Ot I10 ESSENTIAL (PRIMARY) HYPERTENSION 07/12/2017 ALEX JIMENEZ KATHY Mehdi Ot I25.10 ATHSCL HEART DISEASE OF [place] CORONARY 07/12/2017 ALEX JIMENEZ KATHY Mehdi Ot I48.91 UNSPECIFIED ATRIAL FIBRILLATION 07/12/2017 ALEX JIMENEZ KATHY Mehdi Ot I73.9 PERIPHERAL VASCULAR DISEASE, UNSPECIFIED 07/12/2017 ALEX JIMENEZ KATHY Mehdi Ot J44.9 CHRONIC OBSTRUCTIVE PULMONARY DISEASE, U 07/12/2017 ALEX JIMENEZ KATHY Mehdi Ot K21.9 GASTRO-ESOPHAGEAL REFLUX DISEASE WITHOUT 07/12/2017 ALEX JIMENEZ KATHY Mehdi Ot R45.851 SUICIDAL IDEATIONS 07/12/2017 ALEX JIMENEZ KATHY Mehdi Ot Z80.1 FAMILY HISTORY OF MALIG NEOPLASM OF [place] 07/12/2017 ALEX DO KATHY Mehdi Ot Z82.49 FAMILY HX OF ISCHEM HEART DIS AND OTH DI 07/12/2017 ALEX JIMENEZ KATHY Mehdi Ot Z86.73 PRSNL HX OF TIA (TIA), AND CEREB INFRC W 07/12/2017 ALEX DO KATHY Mehdi Ot Z87.19 PERSONAL HISTORY OF OTHER DISEASES OF TH 07/12/2017 ALEX JIMENEZ KATHY Mehdi Ot Z87.891 PERSONAL HISTORY OF NICOTINE DEPENDENCE 07/12/2017 ALEX DO KATHY Mehdi Ot Z95.1 PRESENCE OF AORTOCORONARY BYPASS GRAFT 07/12/2017 ALEX DO KATHY Mehdi Ot Z95.5 PRESENCE OF CORONARY ANGIOPLASTY IMPLANT 09/25/2017 ROJAS NOVA, JUNIOR Molina Ot I25.10 ATHSCL HEART DISEASE OF [place] CORONARY 09/25/2017 ROJAS NOVA, JUNIOR Molina Ot N20.0 CALCULUS OF KIDNEY 09/25/2017 ROJAS NOVA, JUNIOR Molina Ot R10.84 GENERALIZED ABDOMINAL PAIN 09/25/2017 ROAJS NOVA, JUNIOR Molina Ot R19.7 DIARRHEA, UNSPECIFIED 09/27/2017 JUNIOR XIE MD Ot I25.10 ATHSCL HEART DISEASE OF [place] CORONARY 09/27/2017 JUNIOR XIE MD Ot N20.0 CALCULUS OF KIDNEY 09/27/2017 JUNIOR XIE MD Ot R10.84 GENERALIZED ABDOMINAL PAIN 09/27/2017 JUNIOR XIE MD Ot R19.7 DIARRHEA, UNSPECIFIED 09/27/2017 JAMEEL PIMENTEL MD Ot I20.9 ANGINA PECTORIS, UNSPECIFIED 09/27/2017 JAMEEL PIMENTEL MD J Ot Z95.5 PRESENCE OF CORONARY ANGIOPLASTY IMPLANT 09/27/2017 JUNIOR XIE MD Ot R09.89 OTH SYMPTOMS AND SIGNS INVOLVING THE CIR 09/27/2017 JUNIOR XIE MD Ot Z95.1 PRESENCE OF AORTOCORONARY BYPASS GRAFT 09/27/2017 JUNIOR XIE MD Ot I25.10 ATHSCL HEART DISEASE OF [place] CORONARY 09/27/2017 JUNIOR XIE MD Ot N20.0 CALCULUS OF KIDNEY 09/27/2017 JUNIOR XIE MD Ot R10.84 GENERALIZED ABDOMINAL PAIN 09/27/2017 JUNIOR XIE MD Ot R19.7 DIARRHEA, UNSPECIFIED 09/30/2017 JAMEEL PIMENTEL MD Ot I20.9 ANGINA PECTORIS, UNSPECIFIED 09/30/2017 JAMEEL PIMENTEL MD Ot Z95.5 PRESENCE OF CORONARY ANGIOPLASTY IMPLANT 09/30/2017 JUNIOR XIE MD Ot R09.89 OTH SYMPTOMS AND SIGNS INVOLVING THE CIR 09/30/2017 JUNIOR XIE MD Ot Z95.1 PRESENCE OF AORTOCORONARY BYPASS GRAFT 09/30/2017 JUNIOR XIE MD Ot I25.10 ATHSCL HEART DISEASE OF [place] CORONARY 09/30/2017 JUNIOR XIE MD Ot N20.0 CALCULUS OF KIDNEY 09/30/2017 JUNIOR XIE MD Ot R10.84 GENERALIZED ABDOMINAL PAIN 09/30/2017 JUNIOR XIE MD Ot R19.7 DIARRHEA, UNSPECIFIED 10/05/2017 JUNIOR XIE MD Ot I25.10 ATHSCL HEART DISEASE OF [place] CORONARY 10/05/2017 JUNIOR XIE MD Ot N20.0 CALCULUS OF KIDNEY 10/05/2017 ROJAS MD, JUNIOR N Ot R10.84 GENERALIZED ABDOMINAL PAIN 10/05/2017 JUNIOR XIE MD Ot R19.7 DIARRHEA, UNSPECIFIED 11/02/2017 JUINOR XIE MD Ot I25.10 ATHSCL HEART DISEASE OF [place] CORONARY 11/02/2017 JUNIOR XIE MD Ot N20.0 CALCULUS OF KIDNEY 11/02/2017 JUNIOR XIE MD Ot R10.84 GENERALIZED ABDOMINAL PAIN 11/02/2017 JUNIOR XIE MD Ot R19.7 DIARRHEA, UNSPECIFIED 01/24/2018 ASUNCION HDZ Ot D72.820 LYMPHOCYTOSIS (SYMPTOMATIC) 01/24/2018 ASUNCION HDZ Ot E66.9 OBESITY, UNSPECIFIED 01/24/2018 ASUNCION HDZ Ot E78.5 HYPERLIPIDEMIA, UNSPECIFIED 01/24/2018 ASUNCION HDZ Ot I10 ESSENTIAL (PRIMARY) HYPERTENSION 01/24/2018 ASUNCION HDZ Ot I25.10 ATHSCL HEART DISEASE OF [place] CORONARY 01/24/2018 ASUNCION HDZ Ot Z68.38 BODY MASS INDEX (BMI) 38.0-38.9, ADULT 01/24/2018 ASUNCION HDZ Ot Z79.899 OTHER [facility] (CURRENT) DRUG THERAPY 01/29/2018 JAMEEL PIMENTEL MD Ot E66.9 OBESITY, UNSPECIFIED 01/29/2018 JAMEEL PIMENTEL MD Ot E78.2 MIXED HYPERLIPIDEMIA 01/29/2018 JAMEEL PIMENTEL MD J Ot I10 ESSENTIAL (PRIMARY) HYPERTENSION 01/29/2018 JAMEEL PIMENTEL MD Ot I25.10 ATHSCL HEART DISEASE OF [place] CORONARY 01/29/2018 JAMEEL PIMENTEL MD Ot R07.9 CHEST PAIN, UNSPECIFIED 01/29/2018 JAMEEL PIMENTEL MD Ot E66.9 OBESITY, UNSPECIFIED 01/29/2018 JAMEEL PIMENTEL MD Ot E78.2 MIXED HYPERLIPIDEMIA 01/29/2018 JAMEEL PMIENTEL MD Ot I10 ESSENTIAL (PRIMARY) HYPERTENSION 01/29/2018 JAMEEL PIMENTEL MD Ot I25.10 ATHSCL HEART DISEASE OF [place] CORONARY 01/29/2018 JAMEEL PIMENTEL MD Ot R07.9 CHEST PAIN, UNSPECIFIED 02/07/2018 Marcia LYMAN MD Ot E66.9 OBESITY, UNSPECIFIED 02/07/2018 Marcia LYMAN MD, Ot E78.5 HYPERLIPIDEMIA, UNSPECIFIED 02/07/2018 Marcia LYMAN MD, Ot G47.33 OBSTRUCTIVE SLEEP APNEA (ADULT) (PEDIATR 02/07/2018 Marcia LYMAN MD Ot I10 ESSENTIAL (PRIMARY) HYPERTENSION 02/07/2018 Marcia LYMAN MD Ot I25.10 ATHSCL HEART DISEASE OF [place] CORONARY 02/07/2018 Marcia LYMAN MD, Ot I25.82 CHRONIC TOTAL OCCLUSION OF CORONARY [place] 02/07/2018 Marcia LYMAN MD, Ot I48.0 PAROXYSMAL ATRIAL FIBRILLATION 02/07/2018 Marcia LYMAN MD, Ot T82.855A STENOSIS OF CORONARY ARTERY STENT, INITI 02/07/2018 Marcia LYMAN MD, Ot Z68.35 BODY MASS INDEX (BMI) 35.0-35.9, ADULT 02/07/2018 Marcia LYMAN MD Ot Z79.01 [employer]GIENE TE[employer]ER (CURRENT) USE OF ANTICOAGULANT 02/07/2018 Marcia LYMAN MD Ot Z79.899 OTHER [facility] (CURRENT) DRUG THERAPY 02/07/2018 Marcia LYMAN MD, Ot Z86.73 PRSNL HX OF TIA (TIA), AND CEREB INFRC W 02/07/2018 Marcia LYMAN MD Ot Z95.1 PRESENCE OF AORTOCORONARY BYPASS GRAFT 02/07/2018 Marcia LYMAN MD Ot Z95.5 PRESENCE OF CORONARY ANGIOPLASTY IMPLANT 02/08/2018 Marcia LYMAN MD Ot E11.9 TYPE 2 DIABETES MELLITUS WITHOUT COMPLIC 02/08/2018 Marcia LYMAN MD Ot E66.01 MORBID (SEVERE) OBESITY DUE TO EXCESS CA 02/08/2018 Marcia LYMAN MD Ot E78.00 PURE HYPERCHOLESTEROLEMIA, UNSPECIFIED 02/08/2018 Marcia LYMAN MD Ot G47.33 OBSTRUCTIVE SLEEP APNEA (ADULT) (PEDIATR 02/08/2018 Marcia LYMAN MD Ot I10 ESSENTIAL (PRIMARY) HYPERTENSION 02/08/2018 Marcia LYMAN MD Ot I25.10 ATHSCL HEART DISEASE OF [place] CORONARY 02/08/2018 Marcia LYMAN MD, Ot I48.0 PAROXYSMAL ATRIAL FIBRILLATION 02/08/2018 Marcia LYMAN MD Ot 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 02/08/2018 Marcia LYMAN MD Ot I73.9 PERIPHERAL VASCULAR DISEASE, UNSPECIFIED 02/08/2018 Marcia LYMAN MD, Ot J44.9 CHRONIC OBSTRUCTIVE PULMONARY DISEASE, U 02/08/2018 Marcia LYMAN MD, Ot K21.9 GASTRO-ESOPHAGEAL REFLUX DISEASE WITHOUT 02/08/2018 Marcia LYMAN MD, Ot R06.02 SHORTNESS OF BREATH 02/08/2018 Marcia LYMAN MD Ot R07.89 OTHER CHEST PAIN 02/08/2018 Marcia LYMAN MD Ot R42 DIZZINESS AND GIDDINESS 02/08/2018 Marcia LYMAN MD Ot Z68.36 BODY MASS INDEX (BMI) 36.0-36.9, ADULT 02/08/2018 Marcia LYMAN MD Ot Z79.01 [facility] (CURRENT) USE OF ANTICOAGULANT 02/08/2018 Marcia LYMAN MD Ot Z79.02 HYGIENE TE[employer]ER (CURRENT) USE OF ANTITHROMBOTI 02/08/2018 Marcia LYMAN MD Ot Z79.899 OTHER [facility] (CURRENT) DRUG THERAPY 02/08/2018 Marcia LYMAN MD, Ot Z87.891 PERSONAL HISTORY OF NICOTINE DEPENDENCE 02/08/2018 Marcia LYMAN MD Ot Z95.1 PRESENCE OF AORTOCORONARY BYPASS GRAFT 02/08/2018 Marcia LYMAN MD Ot Z95.5 PRESENCE OF CORONARY ANGIOPLASTY IMPLANT 02/10/2018 ASUNCION [facility] Ot D72.820 LYMPHOCYTOSIS (SYMPTOMATIC) 02/10/2018 ASUNCION [facility] Ot E66.9 OBESITY, UNSPECIFIED 02/10/2018 ASUNCION [facility] Ot E78.5 HYPERLIPIDEMIA, UNSPECIFIED 02/10/2018 ASUNCION [facility] Ot I10 ESSENTIAL (PRIMARY) HYPERTENSION 02/10/2018 ASUNCION [facility] Ot I25.10 ATHSCL HEART DISEASE OF [place] CORONARY 02/10/2018 ASUNCION [facility] Ot Z68.38 BODY MASS INDEX (BMI) 38.0-38.9, ADULT 02/10/2018 ASUNCION [facility] Ot Z79.899 OTHER [employer] (CURRENT) DRUG THERAPY Procedures Code Description Performed By Performed On [...] 15:00 Blood leukocytes automated count (number/volume) 12.0 10*3/uL 4.3-11.0 Blood erythrocytes automated count (number/volume) 4.30 10*6/uL 4.35-5.85 Venous blood hemoglobin measurement (mass/volume) 12.6 [...] Automated blood platelet mean volume measurement 9.7 [foz_us] 7.4-10.4 Automated blood neutrophils/100 leukocytes 58 % [...] Serum or plasma sodium measurement (moles/volume) 138 mmol/L 135-145 Serum or plasma potassium measurement (moles/volume) 3.4 mmol/L 3.6-5.0 Serum or plasma chloride measurement (moles/volume) 104 mmol/L 98-107 Carbon dioxide 23 mmol/L 21-32 Serum or plasma anion gap determination (moles/volume) 11 mmol/L 5-14 Serum or plasma urea nitrogen measurement (mass/volume) 8 mg/dL 7-18 Serum or plasma creatinine measurement (mass/volume) 0.80 mg/dL 0.60-1.30 Serum or plasma urea nitrogen/creatinine mass [...] or plasma troponin i.cardiac measurement (mass/volume) < ng/ mL <0.30 Myoglobin, serum - 06/18/16 15:00 Myoglobin, serum 22.6 ng/mL 10.0-92.0 TSH - 06/19/16 16:12 TSH 2.400 uIU/mL 0.450-4.500 Vitamin B12 - 06/19/16 16:12 Vitamin B12 235 pg/mL 211-946 Lipid Panel - 10/18/16 16:17 Cholesterol, Total 251 mg/dL 100-199 Triglycerides 358 mg/dL 0-149 HDL Cholesterol 22 mg/dL >39 VLDL Cholesterol Rodrigo 72 mg/dL 5-40 LDL Cholesterol Calc 157 mg/dL 0-99 CBC With Differential/Platelet - 01/03/17 17:00 WBC 11.9 x10E3/uL 3.4-10.8 RBC 4.79 x10E6/uL 4.14-5.80 Hemoglobin 13.7 g/dL 12.6-17.7 Hematocrit 41.3 % 37.5-51.0 MCV 86 fL 79-97 MCH 28.6 pg 26.6-33.0 MCHC 33.2 g/dL 31.5-35.7 RDW 14.2 % 12.3-15.4 Platelets 323 x10E3/uL 150-379 Neutrophils 63 % Lymphs 28 % Monocytes 5 % Eos 3 % Basos 1 % Neutrophils (Absolute) 7.6 x10E3/uL 1.4-7.0 Lymphs (Absolute) 3.4 x10E3/uL 0.7-3.1 Monocytes(Absolute) 0.5 x10E3/uL 0.1-0.9 Eos (Absolute) 0.4 x10E3/uL 0.0-0.4 Baso (Absolute) 0.1 x10E3/uL 0.0-0.2 Immature Granulocytes 0 % Immature Grans (Abs) 0.0 x10E3/uL 0.0-0.1 Comp. Metabolic Panel (14) - 01/03/17 17:00 Glucose, Serum 136 mg/dL 65-99 BUN 8 mg/dL 6-24 Creatinine, Serum 0.88 mg/dL 0.76-1.27 eGFR If NonAfricn Am 104 mL/min/1.73 >59 eGFR If Africn Am 121 mL/min/1.73 >59 BUN/Creatinine Ratio 9 9-20 Sodium, Serum 142 mmol/L 134-144 Potassium, Serum 4.5 mmol/L 3.5-5.2 Chloride, Serum 100 mmol/L 96-106 Carbon Dioxide, Total 24 mmol/L 18-29 Calcium, Serum 9.2 mg/dL 8.7-10.2 Protein, Total, Serum 7.2 g/dL 6.0-8.5 Albumin, Serum 4.4 g/dL 3.5-5.5 Globulin, Total 2.8 g/dL 1.5-4.5 A/G Ratio 1.6 1.2-2.2 Bilirubin, Total 0.4 mg/dL 0.0-1.2 Alkaline Phosphatase, S 86 IU/L 39-117 AST (SGOT) 15 IU/L 0-40 ALT (SGPT) 13 IU/L 0-44 Lipid Panel - 01/03/17 17:00 Cholesterol, Total 287 mg/dL 100-199 Triglycerides 378 mg/dL 0-149 HDL Cholesterol 26 mg/dL >39 VLDL Cholesterol Rodrigo 76 mg/dL 5-40 LDL Cholesterol Calc 185 mg/dL 0-99 TSH - 01/03/17 17:00 TSH 1.210 uIU/mL 0.450-4.500 CBC With Differential/Platelet - 01/25/17 10:25 WBC 11.9 x10E3/uL 3.4-10.8 RBC 4.65 x10E6/uL 4.14-5.80 Hemoglobin 13.5 g/dL 12.6-17.7 Hematocrit 39.6 % 37.5-51.0 MCV 85 fL 79-97 MCH 29.0 pg 26.6-33.0 MCHC 34.1 g/dL 31.5-35.7 RDW 14.0 % 12.3-15.4 Platelets 301 x10E3/uL 150-379 Neutrophils 60 % Lymphs 32 % Monocytes 5 % Eos 3 % Basos 0 % Neutrophils (Absolute) 7.1 x10E3/uL 1.4-7.0 Lymphs (Absolute) 3.8 x10E3/uL 0.7-3.1 Monocytes(Absolute) 0.6 x10E3/uL 0.1-0.9 Eos (Absolute) 0.4 x10E3/uL 0.0-0.4 Baso (Absolute) 0.0 x10E3/uL 0.0-0.2 Immature Granulocytes 0 % Immature Grans (Abs) 0.0 x10E3/uL 0.0-0.1 Sedimentation Rate-Westergren - 01/25/17 10:25 Sedimentation Rate-Westergren 43 mm/hr 0-15 C-Reactive Protein, Quant - 01/25/17 10:25 C-Reactive Protein, Quant 5.4 mg/L 0.0-4.9 Stool Culture - 02/01/17 13:56 Stool Culture Note White Blood Cells (WBC), Stool - 02/01/17 13:56 White Blood Cells (WBC), Stool Note Request Problem - 02/01/17 13:56 Request Problem Note Complete blood count (CBC) with automated white blood cell (WBC) differential - 02/01/17 18:55 Blood leukocytes automated count (number/volume) 12.7 10*3/uL 4.3-11.0 Blood erythrocytes automated count (number/volume) 4.35 10*6/uL 4.35-5.85 Venous blood hemoglobin measurement (mass/volume) 12.6 g/dL 13.3-17.7 Blood hematocrit (volume fraction) 37 % 40-54 Automated erythrocyte mean corpuscular volume 84 [foz_us] 80-99 Automated erythrocyte mean corpuscular hemoglobin (mass per erythrocyte) 29 pg 25-34 Automated erythrocyte mean corpuscular hemoglobin concentration measurement ( mass/volume) 35 g/dL 32-36 Automated erythrocyte distribution width ratio 13.2 % 10.0-14.5 Automated blood platelet count (count/volume) 291 10*3/uL 130-400 Automated blood platelet mean volume measurement 9.9 [foz_us] 7.4-10.4 Automated blood neutrophils/100 leukocytes 59 % 42-75 Automated blood lymphocytes/100 leukocytes 32 % 12-44 Blood monocytes/100 leukocytes 6 % 0-12 Automated blood eosinophils/100 leukocytes 3 % 0-10 Automated blood basophils/100 leukocytes 0 % 0-10 Blood neutrophils automated count (number/volume) 7.5 10*3 1.8-7.8 Blood lymphocytes automated count (number/volume) 4.1 10*3 1.0-4.0 Blood monocytes automated count (number/volume) 0.8 10*3 0.0-1.0 Automated eosinophil count 0.3 10*3/uL 0.0-0.3 Automated blood basophil count (count/volume) 0.0 10*3/uL 0.0-0.1 Blood lactic acid measurement (moles/volume) - 02/01/17 18:55 Blood lactic acid measurement (moles/volume) 1.57 mmol/L 0.50-2.00 Comprehensive metabolic panel - 02/01/17 18:55 Serum or plasma sodium measurement (moles/volume) 138 mmol/L 135-145 Serum or plasma potassium measurement (moles/volume) 3.7 mmol/L 3.6-5.0 Serum or plasma chloride measurement (moles/volume) 104 mmol/L 98-107 Carbon dioxide 24 mmol/L 21-32 Serum or plasma anion gap determination (moles/volume) 10 mmol/L 5-14 Serum or plasma urea nitrogen measurement (mass/volume) 8 mg/dL 7-18 Serum or plasma creatinine measurement (mass/volume) 0.96 mg/dL 0.60-1.30 Serum or plasma urea nitrogen/creatinine mass ratio 8 NRG Serum or plasma creatinine measurement with calculation of estimated glomerular filtration rate > NRG Serum or plasma glucose measurement (mass/volume) 125 mg/dL 70-105 Serum or plasma calcium measurement (mass/volume) 8.8 mg/dL 8.5-10.1 Serum or plasma total bilirubin measurement (mass/volume) 0.4 mg/dL 0.1-1.0 Serum or plasma alkaline phosphatase measurement (enzymatic activity/volume) 72 U/L 40-136 Serum or plasma aspartate aminotransferase measurement (enzymatic activity/ volume) 11 U/L 5-34 Serum or plasma alanine aminotransferase measurement (enzymatic activity/volume ) 16 U/L 0-55 Serum or plasma protein measurement (mass/volume) 7.3 g/dL 6.4-8.2 Serum or plasma albumin measurement (mass/volume) 3.9 g/dL 3.2-4.5 Magnesium - 02/01/17 18:55 Magnesium 2.0 mg/dL 1.8-2.4 Serum or plasma amylase measurement (enzymatic activity/volume) - 02/01/17 18: 55 Serum or plasma amylase measurement (enzymatic activity/volume) 34 U /L 25-125 Lipase - 02/01/17 18:55 Lipase 31 U/L 8-78 THYROID STIMULATING HORMONE - 02/01/17 18:55 THYROID STIMULATING HORMONE 0.91 u[iU]/mL 0.35-4.94 Serum or plasma C reactive protein measurement (mass/volume) - 02/01/17 18:55 Serum or plasma C reactive protein measurement (mass/volume) 0.90 mg /dL 0.00-0.50 Bacterial blood culture - 02/01/17 18:55 Bacterial blood culture NG NRG Bacterial blood culture - 02/01/17 19:16 Bacterial blood culture NG NRG Complete urinalysis with reflex to culture - 02/01/17 19:43 Urine color determination YELLOW NRG Urine clarity determination CLEAR NRG Urine pH measurement by test strip 5 5-9 Specific gravity of urine by test strip 1.025 1.016- 1.022 Urine protein assay by test strip, semi-quantitative 2+ NEGATIVE Urine glucose detection by automated test strip NEGATIVE NEGATIVE Erythrocytes detection in urine sediment by light microscopy NEGATIVE NEGATIVE Urine ketones detection by automated test strip 1+ NEGATIVE Urine nitrite detection by test strip NEGATIVE NEGATIVE Urine total bilirubin detection by test strip 1+ NEGATIVE Urine urobilinogen measurement by automated test strip (mass/volume) 1 mg/dL NORMAL Urine leukocyte esterase detection by dipstick 1+ NEGATIVE Automated urine sediment erythrocyte count by microscopy (number/high power field) RARE NRG Automated urine sediment leukocyte count by microscopy (number/high power field ) [HPF] NRG Bacteria detection in urine sediment by light microscopy NEGATIVE NRG Crystals detection in urine sediment by light microscopy NONE NRG Casts detection in urine sediment by light microscopy PRESENT NRG Mucus detection in urine sediment by light microscopy LARGE NRG Complete urinalysis with reflex to culture NO NRG Hyaline casts detection in urine sediment by light microscopy -25 NRG Urine drug screening test - 07/03/17 19:00 Urine phencyclidine detection by screening method NEGATIVE NEGATIVE Urine benzodiazepines detection by screening method NEGATIVE NEGATIVE Urine cocaine detection NEGATIVE NEGATIVE Urine amphetamines detection by screening method NEGATIVE NEGATIVE Urine methamphetamine detection by screening method NEGATIVE NEGATIVE Urine cannabinoids detection by screening method POSITIVE NEGATIVE Urine opiates detection by screening method NEGATIVE NEGATIVE Urine barbiturates detection NEGATIVE NEGATIVE Screening urine tricyclic antidepressants detection NEGATIVE NEGATIVE Urine methadone detection by screening method NEGATIVE NEGATIVE Urine oxycodone detection NEGATIVE NEGATIVE Urine propoxyphene detection NEGATIVE NEGATIVE Complete urinalysis with reflex to culture - 07/03/17 19:00 Urine color determination YELLOW NRG Urine clarity determination CLEAR NRG Urine pH measurement by test strip 5 5-9 Specific gravity of urine by test strip 1.015 1.016- 1.022 Urine protein assay by test strip, semi-quantitative NEGATIVE NEGATIVE Urine glucose detection by automated test strip NEGATIVE NEGATIVE Erythrocytes detection in urine sediment by light microscopy NEGATIVE NEGATIVE Urine ketones detection by automated test strip NEGATIVE NEGATIVE Urine nitrite detection by test strip NEGATIVE NEGATIVE Urine total bilirubin detection by test strip NEGATIVE NEGATIVE Urine urobilinogen measurement by automated test strip (mass/volume) NORMAL NORMAL Urine leukocyte esterase detection by dipstick NEGATIVE NEGATIVE Automated urine sediment erythrocyte count by microscopy (number/high power field) NONE NRG Automated urine sediment leukocyte count by microscopy (number/high power field ) [HPF] NRG Bacteria detection in urine sediment by light microscopy NEGATIVE NRG Squamous epithelial cells detection in urine sediment by light microscopy RARE NRG Crystals detection in urine sediment by light microscopy NONE NRG Casts detection in urine sediment by light microscopy NONE NRG Mucus detection in urine sediment by light microscopy SMALL NRG Complete urinalysis with reflex to culture NO NRG Complete blood count (CBC) with automated white blood cell (WBC) differential - 07/03/17 19:15 Blood leukocytes automated count (number/volume) 11.6 10*3/uL 4.3-11.0 Blood erythrocytes automated count (number/volume) 4.91 10*6/uL 4.35-5.85 Venous blood hemoglobin measurement (mass/volume) 14.4 g/dL 13.3-17.7 Blood hematocrit (volume fraction) 40 % 40-54 Automated erythrocyte mean corpuscular volume 82 [foz_us] 80-99 Automated erythrocyte mean corpuscular hemoglobin (mass per erythrocyte) 29 pg 25-34 Automated erythrocyte mean corpuscular hemoglobin concentration measurement ( mass/volume) 36 g/dL 32-36 Automated erythrocyte distribution width ratio 13.0 % 10.0-14.5 Automated blood platelet count (count/volume) 277 10*3/uL 130-400 Automated blood platelet mean volume measurement 9.7 [foz_us] 7.4-10.4 Automated blood neutrophils/100 leukocytes 61 % 42-75 Automated blood lymphocytes/100 leukocytes 31 % 12-44 Blood monocytes/100 leukocytes 7 % 0-12 Automated blood eosinophils/100 leukocytes 2 % 0-10 Automated blood basophils/100 leukocytes 0 % 0-10 Blood neutrophils automated count (number/volume) 7.1 10*3 1.8-7.8 Blood lymphocytes automated count (number/volume) 3.6 10*3 1.0-4.0 Blood monocytes automated count (number/volume) 0.8 10*3 0.0-1.0 Automated eosinophil count 0.2 10*3/uL 0.0-0.3 Automated blood basophil count (count/volume) 0.0 10*3/uL 0.0-0.1 Comprehensive metabolic panel - 07/03/17 19:15 Serum or plasma sodium measurement (moles/volume) 138 mmol/L 135-145 Serum or plasma potassium measurement (moles/volume) 3.7 mmol/L 3.6-5.0 Serum or plasma chloride measurement (moles/volume) 101 mmol/L 98-107 Carbon dioxide 26 mmol/L 21-32 Serum or plasma anion gap determination (moles/volume) 11 mmol/L 5-14 Serum or plasma urea nitrogen measurement (mass/volume) 10 mg/dL 7-18 Serum or plasma creatinine measurement (mass/volume) 0.93 mg/dL 0.60-1.30 Serum or plasma urea nitrogen/creatinine mass ratio 11 NRG Serum or plasma creatinine measurement with calculation of estimated glomerular filtration rate > NRG Serum or plasma glucose measurement (mass/volume) 122 mg/dL 70-105 Serum or plasma calcium measurement (mass/volume) 9.5 mg/dL 8.5-10.1 Serum or plasma total bilirubin measurement (mass/volume) 0.8 mg/dL 0.1-1.0 Serum or plasma alkaline phosphatase measurement (enzymatic activity/volume) 89 U/L 40-136 Serum or plasma aspartate aminotransferase measurement (enzymatic activity/ volume) 14 U/L 5-34 Serum or plasma alanine aminotransferase measurement (enzymatic activity/volume ) 19 U/L 0-55 Serum or plasma protein measurement (mass/volume) 8.0 g/dL 6.4-8.2 Serum or plasma albumin measurement (mass/volume) 4.3 g/dL 3.2-4.5 Serum or plasma thyrotropin measurement by detection limit <=0.05 miu/l (units/ volume) - 07/03/17 19:15 Serum or plasma thyrotropin measurement by detection limit <=0.05 miu/l (units/ volume) 1.31 u[iU]/mL 0.35-4.94 Serum or plasma salicylates measurement (mass/volume) - 07/03/17 19:15 Serum or plasma salicylates measurement (mass/volume) < mg/dL 5.0-20.0 Serum or plasma acetaminophen measurement (mass/volume) - 07/03/17 19:15 Serum or plasma acetaminophen measurement (mass/volume) < ug/mL 10-30 Serum or plasma ethanol measurement (mass/volume) - 07/03/17 19:15 Serum or plasma ethanol measurement (mass/volume) < mg/dL <10 Automated blood complete blood count (hemogram) panel - 02/06/18 11:45 Blood leukocytes automated count (number/volume) 13.2 10*3/uL 4.3-11.0 Blood erythrocytes automated count (number/volume) 4.54 10*6/uL 4.35-5.85 Venous blood hemoglobin measurement (mass/volume) 13.2 g/dL 13.3-17.7 Blood hematocrit (volume fraction) 39 % 40-54 Automated erythrocyte mean corpuscular volume 85 [foz_us] 80-99 Automated erythrocyte mean corpuscular hemoglobin (mass per erythrocyte) 29 pg 25-34 Automated erythrocyte mean corpuscular hemoglobin concentration measurement ( mass/volume) 34 g/dL 32-36 Automated erythrocyte distribution width ratio 13.4 % 10.0-14.5 Automated blood platelet count (count/volume) 285 10*3/uL 130-400 Automated blood platelet mean volume measurement 9.5 [foz_us] 7.4-10.4 PT panel in platelet poor plasma by coagulation assay - 02/06/18 11:45 Prothrombin time (PT) in platelet poor plasma by coagulation assay 13.9 s 12.2-14.7 INR in platelet poor plasma or blood by coagulation assay 1.1 0.8-1.4 Activated partial thromboplastin time (aPTT) in platelet poor plasma bycoagulation assay - 02/06/18 11:45 Activated partial thromboplastin time (aPTT) in platelet poor plasma bycoagulation assay 28 s 24-35 Comprehensive metabolic panel - 02/06/18 11:45 Serum or plasma sodium measurement (moles/volume) 141 mmol/L 135-145 Serum or plasma potassium measurement (moles/volume) 3.9 mmol/L 3.6-5.0 Serum or plasma chloride measurement (moles/volume) 104 mmol/L 98-107 Carbon dioxide 29 mmol/L 21-32 Serum or plasma anion gap determination (moles/volume) 8 mmol/L 5-14 Serum or plasma urea nitrogen measurement (mass/volume) 10 mg/dL 7-18 Serum or plasma creatinine measurement (mass/volume) 0.95 mg/dL 0.60-1.30 Serum or plasma urea nitrogen/creatinine mass ratio 11 NRG Serum or plasma creatinine measurement with calculation of estimated glomerular filtration rate > NRG Serum or plasma glucose measurement (mass/volume) 124 mg/dL 70-105 Serum or plasma calcium measurement (mass/volume) 8.9 mg/dL 8.5-10.1 Serum or plasma total bilirubin measurement (mass/volume) 0.2 mg/dL 0.1-1.0 Serum or plasma alkaline phosphatase measurement (enzymatic activity/volume) 74 U/L 40-136 Serum or plasma aspartate aminotransferase measurement (enzymatic activity/ volume) 11 U/L 5-34 Serum or plasma alanine aminotransferase measurement (enzymatic activity/volume ) 16 U/L 0-55 Serum or plasma protein measurement (mass/volume) 6.8 g/dL 6.4-8.2 Serum or plasma albumin measurement (mass/volume) 4.0 g/dL 3.2-4.5 Lipid 1996 panel - 02/06/18 11:45 Serum or plasma triglyceride measurement (mass/volume) 364 mg/dL <150 Serum or plasma cholesterol measurement (mass/volume) 246 mg/dL < 200 Serum or plasma cholesterol in HDL measurement (mass/volume) 27 mg/ dL 40-60 Cholesterol in LDL [mass/volume] in serum or plasma by direct assay 180 mg/dL 1-129 Serum or plasma cholesterol in VLDL measurement (mass/volume) 73 mg/ dL 5-40 Methicillin resistant Staphylococcus aureus (MRSA) screening culture - 11:45 Methicillin resistant Staphylococcus aureus (MRSA) screening culture NEG NRG Activated partial thromboplastin time (aPTT) in platelet poor plasma bycoagulation assay - 02/06/18 18:55 Activated partial thromboplastin time (aPTT) in platelet poor plasma bycoagulation assay 28 s 24-35 Whole blood basic metabolic panel - 02/07/18 03:30 Serum or plasma sodium measurement (moles/volume) 138 mmol/L 135-145 Serum or plasma potassium measurement (moles/volume) 3.9 mmol/L 3.6-5.0 Serum or plasma chloride measurement (moles/volume) 103 mmol/L 98-107 Carbon dioxide 27 mmol/L 21-32 Serum or plasma anion gap determination (moles/volume) 8 mmol/L 5-14 Serum or plasma urea nitrogen measurement (mass/volume) 9 mg/dL 7-18 Serum or plasma creatinine measurement (mass/volume) 0.84 mg/dL 0.60-1.30 Serum or plasma urea nitrogen/creatinine mass ratio 11 NRG Serum or plasma creatinine measurement with calculation of estimated glomerular filtration rate > NRG Serum or plasma glucose measurement (mass/volume) 109 mg/dL 70-105 Serum or plasma calcium measurement (mass/volume) 8.4 mg/dL 8.5-10.1 Automated blood complete blood count (hemogram) panel - 02/07/18 03:30 Blood leukocytes automated count (number/volume) 9.6 10*3/uL 4.3-11.0 Blood erythrocytes automated count (number/volume) 4.23 10*6/uL 4.35-5.85 Venous blood hemoglobin measurement (mass/volume) 12.3 g/dL 13.3-17.7 Blood hematocrit (volume fraction) 36 % 40-54 Automated erythrocyte mean corpuscular volume 86 [foz_us] 80-99 Automated erythrocyte mean corpuscular hemoglobin (mass per erythrocyte) 29 pg 25-34 Automated erythrocyte mean corpuscular hemoglobin concentration measurement ( mass/volume) 34 g/dL 32-36 Automated erythrocyte distribution width ratio 13.3 % 10.0-14.5 Automated blood platelet count (count/volume) 238 10*3/uL 130-400 Automated blood platelet mean volume measurement 9.7 [foz_us] 7.4-10.4 PT panel in platelet poor plasma by coagulation assay - 02/07/18 21:40 Prothrombin time (PT) in platelet poor plasma by coagulation assay 18.4 s 12.2-14.7 INR in platelet poor plasma or blood by coagulation assay 1.5 0.8-1.4 Activated partial thromboplastin time (aPTT) in platelet poor plasma bycoagulation assay - 02/07/18 21:40 Activated partial thromboplastin time (aPTT) in platelet poor plasma bycoagulation assay 36 s 24-35 Complete blood count (CBC) with automated white blood cell (WBC) differential - 02/07/18 21:40 Blood leukocytes automated count (number/volume) 11.4 10*3/uL 4.3-11.0 Blood erythrocytes automated count (number/volume) 4.11 10*6/uL 4.35-5.85 Venous blood hemoglobin measurement (mass/volume) 11.9 g/dL 13.3-17.7 Blood hematocrit (volume fraction) 35 % 40-54 Automated erythrocyte mean corpuscular volume 85 [foz_us] 80-99 Automated erythrocyte mean corpuscular hemoglobin (mass per erythrocyte) 29 pg 25-34 Automated erythrocyte mean corpuscular hemoglobin concentration measurement ( mass/volume) 34 g/dL 32-36 Automated erythrocyte distribution width ratio 13.1 % 10.0-14.5 Automated blood platelet count (count/volume) 275 10*3/uL 130-400 Automated blood platelet mean volume measurement 9.8 [foz_us] 7.4-10.4 Automated blood neutrophils/100 leukocytes 71 % 42-75 Automated blood lymphocytes/100 leukocytes 22 % 12-44 Blood monocytes/100 leukocytes 6 % 0-12 Automated blood eosinophils/100 leukocytes 2 % 0-10 Automated blood basophils/100 leukocytes 0 % 0-10 Blood neutrophils automated count (number/volume) 8.0 10*3 1.8-7.8 Blood lymphocytes automated count (number/volume) 2.5 10*3 1.0-4.0 Blood monocytes automated count (number/volume) 0.7 10*3 0.0-1.0 Automated eosinophil count 0.2 10*3/uL 0.0-0.3 Automated blood basophil count (count/volume) 0.0 10*3/uL 0.0-0.1 Comprehensive metabolic panel - 02/07/18 21:40 Serum or plasma sodium measurement (moles/volume) 134 mmol/L 135-145 Serum or plasma potassium measurement (moles/volume) 4.2 mmol/L 3.6-5.0 Serum or plasma chloride measurement (moles/volume) 99 mmol/L 98-107 Carbon dioxide 27 mmol/L 21-32 Serum or plasma anion gap determination (moles/volume) 8 mmol/L 5-14 Serum or plasma urea nitrogen measurement (mass/volume) 8 mg/dL 7-18 Serum or plasma creatinine measurement (mass/volume) 1.05 mg/dL 0.60-1.30 Serum or plasma urea nitrogen/creatinine mass ratio 8 NRG Serum or plasma creatinine measurement with calculation of estimated glomerular filtration rate > NRG Serum or plasma glucose measurement (mass/volume) 145 mg/dL 70-105 Serum or plasma calcium measurement (mass/volume) 8.7 mg/dL 8.5-10.1 Serum or plasma total bilirubin measurement (mass/volume) 0.5 mg/dL 0.1-1.0 Serum or plasma alkaline phosphatase measurement (enzymatic activity/volume) 74 U/L 40-136 Serum or plasma aspartate aminotransferase measurement (enzymatic activity/ volume) 10 U/L 5-34 Serum or plasma alanine aminotransferase measurement (enzymatic activity/volume ) 13 U/L 0-55 Serum or plasma protein measurement (mass/volume) 6.8 g/dL 6.4-8.2 Serum or plasma albumin measurement (mass/volume) 3.9 g/dL 3.2-4.5 Magnesium - 02/07/18 21:40 Magnesium 2.0 mg/dL 1.8-2.4 Serum or plasma troponin i.cardiac measurement (mass/volume) - 02/07/18 21:40 Serum or plasma troponin i.cardiac measurement (mass/volume) < ng/ mL <0.30 Myoglobin, serum - 02/07/18 21:40 Myoglobin, serum 34.8 ng/mL 10.0-92.0 Serum or plasma lithium measurement (moles/volume) - 02/07/18 21:40 BNP level 31.4 pg/mL <100.0 Complete blood count (CBC) with automated white blood cell (WBC) differential - 02/08/18 03:35 Blood leukocytes automated count (number/volume) 10.7 10*3/uL 4.3-11.0 Blood erythrocytes automated count (number/volume) 3.88 10*6/uL 4.35-5.85 Venous blood hemoglobin measurement (mass/volume) 11.4 g/dL 13.3-17.7 Blood hematocrit (volume fraction) 33 % 40-54 Automated erythrocyte mean corpuscular volume 86 [foz_us] 80-99 Automated erythrocyte mean corpuscular hemoglobin (mass per erythrocyte) 29 pg 25-34 Automated erythrocyte mean corpuscular hemoglobin concentration measurement ( mass/volume) 34 g/dL 32-36 Automated erythrocyte distribution width ratio 13.1 % 10.0-14.5 Automated blood platelet count (count/volume) 238 10*3/uL 130-400 Automated blood platelet mean volume measurement 9.4 [foz_us] 7.4-10.4 Automated blood neutrophils/100 leukocytes 60 % 42-75 Automated blood lymphocytes/100 leukocytes 31 % 12-44 Blood monocytes/100 leukocytes 7 % 0-12 Automated blood eosinophils/100 leukocytes 2 % 0-10 Automated blood basophils/100 leukocytes 0 % 0-10 Blood neutrophils automated count (number/volume) 6.4 10*3 1.8-7.8 Blood lymphocytes automated count (number/volume) 3.3 10*3 1.0-4.0 Blood monocytes automated count (number/volume) 0.8 10*3 0.0-1.0 Automated eosinophil count 0.2 10*3/uL 0.0-0.3 Automated blood basophil count (count/volume) 0.0 10*3/uL 0.0-0.1 Comprehensive metabolic panel - 02/08/18 03:35 Serum or plasma sodium measurement (moles/volume) 139 mmol/L 135-145 Serum or plasma potassium measurement (moles/volume) 4.0 mmol/L 3.6-5.0 Serum or plasma chloride measurement (moles/volume) 103 mmol/L 98-107 Carbon dioxide 29 mmol/L 21-32 Serum or plasma anion gap determination (moles/volume) 7 mmol/L 5-14 Serum or plasma urea nitrogen measurement (mass/volume) 8 mg/dL 7-18 Serum or plasma creatinine measurement (mass/volume) 0.94 mg/dL 0.60-1.30 Serum or plasma urea nitrogen/creatinine mass ratio 9 NRG Serum or plasma creatinine measurement with calculation of estimated glomerular filtration rate > NRG Serum or plasma glucose measurement (mass/volume) 91 mg/dL 70-105 Serum or plasma calcium measurement (mass/volume) 8.6 mg/dL 8.5-10.1 Serum or plasma total bilirubin measurement (mass/volume) 0.4 mg/dL 0.1-1.0 Serum or plasma alkaline phosphatase measurement (enzymatic activity/volume) 70 U/L 40-136 Serum or plasma aspartate aminotransferase measurement (enzymatic activity/ volume) 10 U/L 5-34 Serum or plasma alanine aminotransferase measurement (enzymatic activity/volume ) 11 U/L 0-55 Serum or plasma protein measurement (mass/volume) 6.2 g/dL 6.4-8.2 Serum or plasma albumin measurement (mass/volume) 3.6 g/dL 3.2-4.5 Lipid 1996 panel - 02/08/18 03:35 Serum or plasma triglyceride measurement (mass/volume) 235 mg/dL <150 Serum or plasma cholesterol measurement (mass/volume) 231 mg/dL < 200 Serum or plasma cholesterol in HDL measurement (mass/volume) 26 mg/ dL 40-60 Cholesterol in LDL [mass/volume] in serum or plasma by direct assay 163 mg/dL 1-129 Serum or plasma cholesterol in VLDL measurement (mass/volume) 47 mg/ dL 5-40 Serum or plasma troponin i.cardiac measurement (mass/volume) - 02/08/18 03:35 Serum or plasma troponin i.cardiac measurement (mass/volume) < ng/ mL <0.30 Myoglobin, serum - 02/08/18 03:35 Myoglobin, serum 31.6 ng/mL 10.0-92.0 Encounters ACCT No. Visit Date/Time Discharge Status Pt. Type Provider Facility Loc./Unit Complaint [id number] 02/07/2018 21:25:00 02/08/2018 12:42:00 DIS Inpatient Marcia LYMAN MD Via [facility] ICU CHEST PAIN;HX OF CAD [id number] 02/06/2018 11:05:00 02/07/2018 10:45:00 DIS Outpatient Marcia LYMAN MD Via [facility] CATH ABNORMAL STRESS TEST,CHD ,CAD,HTN [id number] 01/29/2018 08:38:00 01/29/2018 23:59:59 CLS Outpatient JAMEEL PIMENTEL MD Via [facility] CARD CAD,CHEST PAIN SYNDROME, HTN [id number] 01/28/2018 10:49:00 01/28/2018 23:59:59 CLS Outpatient JAMEEL PIMENTEL MD Via [facility] CARD CAD,CHEST PAIN SYNDROME, HTN [id number] 01/24/2018 09:51:00 01/24/2018 23:59:59 CLS Outpatient ASUNCION HDZ Jesse [facility] ONC [id number] 07/03/2017 18:26:00 07/03/2017 20:34:00 DIS Emergency KATHY JOHNSON DO Via [facility] ER SUICIDAL [id number] 05/13/2017 10:15:00 05/13/2017 23:59:59 CLS Preadmit JAMEEL PIMENTEL MD Via [facility] CARD CAD I25.10 [id number] 05/07/2017 10:00:00 05/07/2017 23:59:59 CLS Preadmit JAMEEL PIMENTEL MD Via [facility] CARD I25.10 CAD [id number] 03/28/2017 14:04:00 03/28/2017 23:59:59 CLS Outpatient JUNIOR XIE MD Via [facility] RAD R19.7,R10.84 [id number] 02/25/2017 09:28:00 02/25/2017 12:45:00 DIS Outpatient MANOJ BAUMANN MD [facility] ENDO GERD [id number] 02/22/2017 05:56:00 02/22/2017 09:06:00 DIS Outpatient MANOJ BAUMANN MD [facility] PREOP COLONOSCOPY [id number] 02/07/2017 09:45:00 02/07/2017 23:59:59 CLS Preadmit JUNIOR XIE MD Via [facility] RAD GERNERALIZED ABD PAIN R10.84 [id number] 02/07/2017 08:58:00 02/07/2017 23:59:59 CLS Outpatient JUNIOR XIE MD Via [facility] RAD PROMINENT ABDOMINAL AORTIC PULSATION R06.89 [id number] 02/01/2017 18:24:00 02/01/2017 20:56:00 DIS Emergency GLORY NOVA, SHA Lemons [facility] ER STOMACH PAIN/ LIGHTHEADEDNESS [id number] 11/14/2016 11:00:00 11/14/2016 23:59:59 CLS Preadmit JAMEEL PIMENTEL MD [facility] CR STENT [id number] 09/21/2016 11:15:00 11/13/2016 00:01:00 DIS Outpatient JAMEEL PIMENTEL MD [facility] CR STENT [id number] 06/18/2016 14:42:00 06/18/2016 16:16:00 DIS Emergency ERIC WALL APRN [facility] ER PALPITATIONS NAUSEA [id number] 02/25/2016 23:11:00 02/29/2016 14:40:00 DIS Outpatient ANA LUISA NOVA FACC, JT ALLEN CCDS [facility] CATH CHEST PAIN [id number] 12/14/2015 10:00:00 12/14/2015 23:59:59 CLS Preadmit JAMEEL PIMENTEL MD [facility] CR PTCA [id number];STABLE ANGINA [id number] 09/26/2015 11:59:00 12/13/2015 00:01:00 DIS Outpatient JAMEEL PIMENTEL MD [facility] CR PTCA [id number];STABLE ANGINA [id number] 09/09/2015 19:56:00 09/10/2015 06:40:00 DIS Outpatient MARY JON ROLLING ATTENDANT [facility] SLEEP NARGIS [id number] 09/09/2015 12:03:00 09/09/2015 23:59:59 CLS Outpatient JAMEEL PIMENTEL MD [facility] CR PTCA [id number];STABLE ANGINA [id number] 08/31/2015 15:57:00 08/31/2015 17:10:00 DIS Emergency ERIC WALL APRN [facility] ER L EAR BLEEDING [id number] 07/24/2015 21:15:00 07/25/2015 06:25:00 DIS Outpatient TINAJERO-WYATT PA, JOSE GUADALUPE Harding [facility] SLEEP ARRHYTHMIAS , HX STROKE, OBSTRUCTIVE SLEEP APNEA [id number] 07/08/2015 10:07:00 07/08/2015 11:55:00 DIS Emergency GARRETT NOVA, DEONTE Burkett [facility] ER COUGH/GAINING WEIGHT [id number] 04/25/2015 14:12:00 04/27/2015 11:55:00 DIS Inpatient MARGARITO NOVA, JAMEEL Saini [facility] CSD CHEST PAIN,CAD,CHRONIC LEUKOCYTOSIS [id number] 10/19/2016 08:37:00 Document Registration [id number] 01/04/2017 08:06:00 Document Registration [id number] 06/20/2016 10:05:00 Document Registration [id number] 01/28/2017 14:09:00 Document Registration [id number] 02/05/2017 11:07:00 Document Registration [id number] 02/10/2018 16:40:00 ACT Outpatient ROJAS NOVA, [facility]IOR [facility]
== END 2018-02-08 12:42 | disposition home or self-care (01) ==
LOC: EDUNIT# 21:22 → ER 21:23 → ICU 21:25 → UNDOADMOB 22:50 → ICU 22:50 → UNDODISOB 02-08 13:20
PROVIDERS: ADMIT Internal Medicine Interventional Cardiology; ATTEND Internal Medicine Interventional Cardiology
DX: R07.89 Other chest pain (principal); R06.02 Shortness of breath; R42 Dizziness and giddiness; I25.10 Atherosclerotic heart disease of native coronary artery without angina pectoris; J44.9 Chronic obstructive pulmonary disease, unspecified; I10 Essential (primary) hypertension; I48.0 Paroxysmal atrial fibrillation; E11.9 Type 2 diabetes mellitus without complications; I73.9 Peripheral vascular disease, unspecified; E78.00 Pure hypercholesterolemia, unspecified; I69.311 Memory deficit following cerebral infarction; G47.33 Obstructive sleep apnea (adult) (pediatric); K21.9 Gastro-esophageal reflux disease without esophagitis; E66.01 Morbid (severe) obesity due to excess calories; Z68.36 Body mass index [BMI] 36.0-36.9, adult; Z79.01 Long term (current) use of anticoagulants; Z79.02 Long term (current) use of antithrombotics/antiplatelets; Z79.899 Other long term (current) drug therapy; Z87.891 Personal history of nicotine dependence; Z95.1 Presence of aortocoronary bypass graft; Z95.5 Presence of coronary angioplasty implant and graft
CPT/HCPCS: 36415; 71045; 80053; 80061; 83735; 83874; 83880; 84484; 85025; 85610; 85730; 93005; 93041; 96361; 96374; 96375

== ENCOUNTER → 2018-02-28 | Outpatient (CLI) | payer MEDICARE, MEDICAID ==
[~2018-02-28] MED LIST changes: +MAG30ORA2 PO
--- NOTE | 2018-02-28 11:35 | Diagnostic Imaging Report ---
EXAMINATION: Nuclear medicine gastric emptying study. DATE: February 28, 2018. INDICATION: 48-year-old male, history of chronic gastritis. COMPARISON: None. FINDINGS: 1.0 mCi of technetium labeled sulfur colloid was administered. Subsequent anterior and posterior scintigraphic images of the stomach were obtained over a 4 hour timeframe for calculation of gastric emptying. At 1 hour, there is approximately 19% gastric emptying. At 2 hours, there is approximately 37% gastric emptying. At 3 hours, there is approximately 45% gastric emptying. At 4 hours, there is approximately 77% gastric emptying. IMPRESSION: 1. Findings compatible with delayed gastric emptying. Dictated by: Dictated on workstation # [id number]
== END ==
LOC: CARD 06:38
PROVIDERS: ATTEND Surgery
DX: K29.50 Unspecified chronic gastritis without bleeding (principal)
CPT/HCPCS: 78264

== ENCOUNTER 2018-03-28 11:16 | Outpatient (RCR) | payer MEDICARE, MEDICAID ==
[~2018-03-28 11:16] MED LIST changes: -AMLO5TAB2 PO; +AMLO5TAB7 PO
== END 2018-05-29 | disposition home or self-care (01) ==
LOC: CR 11:16
PROVIDERS: ATTEND Internal Medicine Interventional Cardiology
DX: Z48.812 Encounter for surgical aftercare following surgery on the circulatory system (principal); Z95.5 Presence of coronary angioplasty implant and graft
CPT/HCPCS: 93798

== ENCOUNTER 2018-07-22 04:30 | Emergency (ER) | payer MEDICARE, MEDICAID ==
[~2018-07-22] VITALS: Ht 185.4 cm; Wt 127.0 kg
--- OUTSIDE RECORDS SUMMARY | 2018-07-22 04:37 | XMS REPORT ---
Author Author ROJAS JUNIOR Organization [facility] Address [address] [place] [address] Care Team Providers Care [facility] Emergency Services Dispatcher Name Role Phone LYRIC XIEHANY Unavailable PROBLEMS Type Condition ICD9-CM Code OWZ50-KT Code Onset Dates Condition Status SNOMED Code Problem History of stroke Z86.73 Active 036066814 Problem S/P CABG x 5 Z95.1 Active 674094761 Problem Anemia D64.9 Active 864073917 Problem Essential hypertension I10 Active 01635791 Problem Sciatica, unspecified side M54.30 Active 14421263 Problem Panic attack F41.0 Active 368942312 Problem Gastroparesis K31.84 Active 915002338 Problem Generalized anxiety disorder F41.1 Active 04415290 Problem Chronic obstructive pulmonary disease, unspecified J44.9 Active 42586553 Problem Intractable migraine without aura and with status migrainosus G43.011 Active 966775994 Problem Other elevated white blood cell count D72.828 Active 298946500 Problem Sciatica of left side M54.32 Active 54495826 Problem GERD with esophagitis K21.0 Active 473245022 Problem 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 Active 63762169 Problem Hyperplastic colonic polyp, unspecified part of colon K63.5 Active 253478111 Problem Hyperlipidemia, unspecified E78.5 Active 13068757 Problem 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 Active 91506465 Problem Hepatic steatosis K76.0 Active 023438254 Problem Diarrhea, unspecified type R19.7 Active 23698114 Problem Mixed obsessional thoughts and acts F42.2 Active 58326009 Problem Cannabis abuse F12.10 Active 47897691 Problem GERD (gastroesophageal reflux disease) K21.9 Active 270078655 Problem Paroxysmal atrial fibrillation I48.0 Active 608907097 Problem Anticoagulant long-term use Z79.01 Active 809185487 Problem Depression F32.9 Active 12076451 Problem Vertigo R42 Active 019206734 Problem Post traumatic stress disorder (PTSD) F43.10 Active 84171533 Problem 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 Active 950769371 Problem Prediabetes R73.03 Active 744398607 ALLERGIES No Information ENCOUNTERS Encounter Location Date Diagnosis [place] [id number] [place] [address] Mar, [place] [id number] [place] [address] 92100- 8820 Feb, 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 ; Mixed obsessional thoughts and acts F42.2 and Cannabis abuse F12.10 [facility] [id number] [place] [address] 32386- 9167 Feb, 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 ; Mixed obsessional thoughts and acts F42.2 and Cannabis abuse F12.10 [facility] [id number] [place] [address] 18317- 5425 Feb, GERD with esophagitis K21.0 [facility] [id number] [place] [address] 96279- 5135 Feb, [facility] [id number] [place] [address] 18997- 4998 Nov, Chronic combined systolic (congestive) and diastolic ( congestive) heart failure I50.42 ; Chronic obstructive pulmonary disease, unspecified J44.9 ; Essential hypertension I10 ; Hyperlipidemia, unspecified E78.5 ; Anticoagulant long-term use Z79.01 ; Depression F32.9 ; Paroxysmal atrial fibrillation I48.0 and 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 [facility] [id number] [place] [address] 79754- 6584 Oct, Chronic obstructive pulmonary disease, unspecified J44.9 [facility] [id number] [place] [address] 39681- 1664 Sep, 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 ; Mixed obsessional thoughts and acts F42.2 and Cannabis abuse F12.10 [facility] [address], [place] [address] Aug, 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 ; Mixed obsessional thoughts and acts F42.2 and Cannabis abuse F12.10 [facility] [address] [address] Aug, 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 and Mixed obsessional thoughts and acts F42.2 [facility] [address] [address] Jul, 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 and Mixed obsessional thoughts and acts F42.2 [facility] [id number] [place] [address] 64622- 5153 Jul, 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 and Mixed obsessional thoughts and acts F42.2 [facility] [address] [place] [address] 15976- 4345 Jul, 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 ; Mixed obsessional thoughts and acts F42.2 and Cannabis abuse F12.10 [place] [address], [place] [address] Jun, 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 ; Mixed obsessional thoughts and acts F42.2 and Cannabis abuse F12.10 [facility] [address] [address] Jun, [facility] [id number] [place] [address] 14167- 8143 Jun, 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 ; Mixed obsessional thoughts and acts F42.2 and Cannabis abuse F12.10 [facility] [address] [address] May, 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 ; Mixed obsessional thoughts and acts F42.2 and Cannabis abuse F12.10 [facility] [id number] [place] [address] 05910- 6447 May, 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 [facility] [id number] [place] [address] 88750- 0634 Mar, [place] [address] [address] Mar, Chronic combined systolic (congestive) and diastolic ( congestive) heart failure I50.42 ; Diarrhea, unspecified type R19.7 ; Hepatic steatosis K76.0 and Generalized postprandial abdominal pain R10.84 [facility] [address] [address]- [address]40 Jan, Generalized abdominal pain R10.84 [facility] [address] [address]- [address] Jan, Generalized abdominal pain R10.84 ; Generalized postprandial abdominal pain R10.84 ; Diarrhea, unspecified type R19.7 ; Non- intractable vomiting with nausea, unspecified vomiting type R11.2 ; GERD ( gastroesophageal reflux disease) K21.9 ; S/P CABG x 5 Z95.1 ; Prominent abdominal aortic pulsation R09.89 and Other elevated white blood cell count D72.828 [facility] [id number] [place] [address] 02959- 0768 Jan, Vertigo R42 [place] [id number] [place] [address] 74438- 8611 Jan, Other elevated white blood cell count D72.828 [facility] [id number] [place] [address] 77977- 6150 Jan, Other elevated white blood cell count D72.828 [place] [id number] [place] [address] 84207- 0088 Jan, Hyperlipidemia, unspecified E78.5 ; Sciatica of left side M54.32 ; Weight loss R63.4 and Night sweats R61 [facility] [address] [place] [address] [id number] December, Dental caries K02.9 and Dental examination Z01.20 [facility] [id number] [place], [place] [address] 31 Oct, 2016 Vertigo R42 ; Nausea R11.0 ; Chronic obstructive pulmonary disease, unspecified J44.9 ; GERD (gastroesophageal reflux disease) K21.9 ; S/P CABG x 5 Z95.1 ; Hyperlipidemia, unspecified E78.5 ; Essential hypertension I10 ; Paroxysmal atrial fibrillation I48.0 and Depression F32.9 [place] [address] [address]- [address] Oct, [place] [address] 17[address]- [address]203 Oct, Hyperlipidemia, unspecified E78.5 [place] [address] [address]- 2016 Oct, 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 [place] [address] 71475- 3228 Oct, Vertigo R42 [facility] [address] 72281- 9122 Oct, [place] [id number] [place] [address] 86081- 3956 Sep, [facility] [id number] [place] [address] 31652- 6616 Aug, 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.2 [facility] [address] 74686- 3905 05 Jul, 2016 Depression F32.9 ; Generalized anxiety disorder F41.1 and Panic attack F41.0 [facility] [address] [place] [id number] Jul, Dental examination Z01.20 [place] [id number] [place] [address] 29325- 2783 30 Jun, 2016 [place] [address] [address] [id number] 30 Jun, 2016 Encounter for dental examination and cleaning without abnormal findings Z01.20 [place] [id number] [place] [address] 08981- 2472 15 Jun, 2016 Intractable migraine without aura and with status migrainosus G43.011 ; 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 ; B12 deficiency E53.8 and Depression F32.9 [place] [address] [address]23[address]- 6796 15 Jun, 2016 Severe recurrent major depression without psychotic features F33.[address] [address]- [address] 14 Jun, 2016 Depression F32.9 ; Generalized anxiety disorder F41.1 ; Post traumatic stress disorder (PTSD) F43.10 and Panic attack F41.0 [place] [id number] [place] [address] 31067- 7794 04 Jun, 2016 [place] [address] 18368- 8431 03 Jun, 2016 [place] [id number] [place] [address] 08138- 3724 May, [place] [address] [id number] 07 May, 2016 Elevated glucose R73.09 ; Depression F32.9 ; Hyperlipidemia , unspecified E78.5 ; Prediabetes R73.03 ; B12 deficiency E53.8 ; Vertigo R42 ; Seborrheic keratosis L82.1 ; Chronic obstructive pulmonary disease, unspecified J44.9 and Blurry vision H53.8 [place] [id number] [place] [address] 85609- 6005 Apr, [place] [id number] [place] [address] 02206- 5773 Jan, Elevated glucose R73.09 ; Anemia D64.9 and Weakness generalized R53.1 [place] [id number] [place] [address] 99574- 1635 Jan, [place] [address] 76358- 8537 Jan, [place] [address] 94971- [address]20 December, Sciatica, left side M54.[address] [address]- [address]88 Nov, Sciatica, unspecified side M54.30 ; Chronic obstructive pulmonary disease, unspecified J44.9 ; GERD (gastroesophageal reflux disease) K21.9 ; 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 and Pre-syncope R55 [place] [id number] [place] [address] 48480- 4852 Sep, [place] [address] 37[address]- 2323 Aug, Coumadin toxicity, accidental or unintentional, subsequent encounter T60.4X1D [place] [id number] [place] [address] 13375- 1337 Aug, [place] [id number] [place] [address] 10422- 5512 Aug, Coumadin toxicity, accidental or unintentional, subsequent encounter T60.4X1D ; Atherosclerosis of coronary artery bypass graft(s) without angina pectoris I25.810 and History of stroke Z86.73 [facility] [id number] [place] [address] 94743 -9163 Aug, Ear canal abrasion, left, initial encounter S00.412A and Anticoagulant long-term use Z79.01 [place] [id number] [address] Jul, [facility] [id number] [address] Jul, Anticoagulant long-term use Z79.01 ; Polyarthralgia M25.50 ; Sciatica, left M54.32 ; Costochondritis M94.0 ; COPD exacerbation J44.1 and Depression F32.9 [facility] [id number] [address] May, [facility] [address] [facility] [id number] [address] Apr, Hyperlipidemia 272.4 ; Coronary artery disease 414.00 ; History of stroke V12.54 ; COPD (chronic obstructive pulmonary disease) 496 ; Hypertension 401.9 ; Sciatica 724.3 ; Encounter for monitoring coumadin therapy V58.83 ; Vertigo as late effect of stroke 438.85 ; Generalized anxiety disorder 300.02 and GERD (gastroesophageal reflux disease) 530.81 IMMUNIZATIONS No Known Immunizations SOCIAL HISTORY Never Assessed REASON FOR VISIT Eye exam PLAN OF CARE VITAL SIGNS MEDICATIONS Unknown [...] Hypertension Medical History Sciatica Medical History Depression Surgical History coronary artery bypass graft 2008 Surgical History angioplasty Surgical History cardiac stent x 6 Surgical History Colonoscopy and EGD 02/2017 Surgical History cardiac cath, replaced 2 stents that were collapsed 02/06/18 Hospitalization History For surgeries Hospitalization History [facility] in his 20's Hospitalization History [facility]- Chest Pain; Hx of CAD 02/07/2018
--- OUTSIDE RECORDS SUMMARY | 2018-07-22 04:37 | XMS REPORT ---
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 Name Role Phone JAMES, CHANTELL Unavailable PROBLEMS Type Condition ICD9-CM Code SGC77-RD Code Onset Dates Condition Status SNOMED Code Problem History of stroke Z86.73 Active 275873179 Problem S/P CABG x 5 Z95.1 Active 079106865 Problem Anemia D64.9 Active 490742341 Problem Essential hypertension I10 Active 52376342 Problem Sciatica, unspecified side M54.30 Active 58839839 Problem Panic attack F41.0 Active 946761971 Problem Gastroparesis K31.84 Active 193063002 Problem Generalized anxiety disorder F41.1 Active 21013459 Problem Chronic obstructive pulmonary disease, unspecified J44.9 Active 17204571 Problem Intractable migraine without aura and with status migrainosus G43.011 Active 797663739 Problem Other elevated white blood cell count D72.828 Active 502670466 Problem Sciatica of left side M54.32 Active 50970839 Problem GERD with esophagitis K21.0 Active 276574234 Problem 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 Active 00125107 Problem Hyperplastic colonic polyp, unspecified part of colon K63.5 Active 865281658 Problem Hyperlipidemia, unspecified E78.5 Active 45334166 Problem 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 Active 24647213 Problem Hepatic steatosis K76.0 Active 549697611 Problem Diarrhea, unspecified type R19.7 Active 21357759 Problem Mixed obsessional thoughts and acts F42.2 Active 49839189 Problem Cannabis abuse F12.10 Active 25012369 Problem GERD (gastroesophageal reflux disease) K21.9 Active 480280585 Problem Paroxysmal atrial fibrillation I48.0 Active 607254457 Problem Anticoagulant long-term use Z79.01 Active 553718309 Problem Depression F32.9 Active 39807475 Problem Vertigo R42 Active 309170615 Problem Post traumatic stress disorder (PTSD) F43.10 Active 78121257 Problem 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 Active 247157495 Problem Prediabetes R73.03 Active 481988303 ALLERGIES Substance Reaction Event Type Date Status Vicodin Unknown Drug Allergy Feb, Active PredniSONE Unknown Drug Allergy Feb, Active ENCOUNTERS Encounter Location Date Diagnosis [facility] [id number] [place] [address] [id number] Apr, [facility] [id number] [place] [address] 98612- 7707 Mar, [facility] [id number] [place] [address] 38324- 1367 Feb, 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 ; Mixed obsessional thoughts and acts F42.2 and Cannabis abuse F12.10 [facility] [id number] [place] [address] 69040- 5924 Feb, 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 ; Mixed obsessional thoughts and acts F42.2 and Cannabis abuse F12.10 [facility] [id number] [place] [address] 05221- 2769 Feb, GERD with esophagitis K21.0 [facility] [id number] [place] [address] 21763- 0795 Feb, [facility] [id number] [place] [address] 30660- 4304 Nov, Chronic combined systolic (congestive) and diastolic ( congestive) heart failure I50.42 ; Chronic obstructive pulmonary disease, unspecified J44.9 ; Essential hypertension I10 ; Hyperlipidemia, unspecified E78.5 ; Anticoagulant long-term use Z79.01 ; Depression F32.9 ; Paroxysmal atrial fibrillation I48.0 and 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 [facility] [id number] [place] [address] 33934- 8006 Oct, Chronic obstructive pulmonary disease, unspecified J44.9 [place] [address] [address] Sep, 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 ; Mixed obsessional thoughts and acts F42.2 and Cannabis abuse F12.10 [place] [address] [address] Aug, 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 ; Mixed obsessional thoughts and acts F42.2 and Cannabis abuse F12.10 [place] [address] [place] [address] 95475- 4414 Aug, 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 and Mixed obsessional thoughts and acts F42.2 [place] [id number] [place] [address] 24108- 3164 Jul, 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 and Mixed obsessional thoughts and acts F42.2 [facility] [id number] [place] [address] 33170- 0898 Jul, 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 and Mixed obsessional thoughts and acts F42.2 [place] [address] [place] [address] 27679- 3870 Jul, 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 ; Mixed obsessional thoughts and acts F42.2 and Cannabis abuse F12.10 [place] [address] [address] Jun, 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 ; Mixed obsessional thoughts and acts F42.2 and Cannabis abuse F12.10 [place] [address] [place] [address] 42808- 5372 Jun, [place] [address] [place] [address] 21286- 9683 Jun, 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 ; Mixed obsessional thoughts and acts F42.2 and Cannabis abuse F12.10 [facility] [id number] [place] [address] 52796- 9316 May, 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 ; Mixed obsessional thoughts and acts F42.2 and Cannabis abuse F12.10 [place] [id number] [place] [address] 58830- 9911 May, Severe recurrent major depression without psychotic features F33.2 [place] [id number] [place] [address] 665943- 5073 Mar, [place] [id number] [place] [address] 276772- 5831 Mar, Chronic combined systolic (congestive) and diastolic ( congestive) heart failure I50.42 ; Diarrhea, unspecified type R19.7 ; Hepatic steatosis K76.0 and Generalized postprandial abdominal pain R10.84 [facility] [id number] [place] [address] 61453- 2194 Jan, Generalized abdominal pain R10.84 [place] [id number] [place] [address] 25173- 3816 Jan, Generalized abdominal pain R10.84 ; Generalized postprandial abdominal pain R10.84 ; Diarrhea, unspecified type R19.7 ; Non- intractable vomiting with nausea, unspecified vomiting type R11.2 ; GERD ( gastroesophageal reflux disease) K21.9 ; S/P CABG x 5 Z95.1 ; Prominent abdominal aortic pulsation R09.89 and Other elevated white blood cell count D72.828 [place] [address] [place] [address] 19898- 3751 Jan, Vertigo R42 [address] 07903- 5881 Jan, Other elevated white blood cell count D72.828 [facility] [id number] [place] [address] 02578- 4816 Jan, Other elevated white blood cell count D72.828 [place] [address] [place] [address] 92774- 7256 Jan, Hyperlipidemia, unspecified E78.5 ; Sciatica of left side M54.32 ; Weight loss R63.4 and Night sweats R61 [facility] [address] [id number] December, Dental caries K02.9 and Dental examination Z01.20 [place] [id number] [place] [address] 48915- 8297 Oct, Vertigo R42 ; Nausea R11.0 ; Chronic obstructive pulmonary disease, unspecified J44.9 ; GERD (gastroesophageal reflux disease) K21.9 ; S/P CABG x 5 Z95.1 ; Hyperlipidemia, unspecified E78.5 ; Essential hypertension I10 ; Paroxysmal atrial fibrillation I48.0 and Depression F32.9 [place] [id number] [place] [address] 71492- 0757 Oct, [place] [id number] [place] [address] 89507- 3143 Oct, Hyperlipidemia, unspecified E78.5 [facility] [id number] [place] [address] 82853- 9078 Oct, 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 [facility] [id number] [place] [address] 85956- 6068 Oct, Vertigo R42 [facility] [id number] [place] [address] 92740- 8832 Oct, [place] [id number] [place] [address] 10182- 9353 Sep, [place] [id number] [place] [address] 47207- 4187 Aug, 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 [place] [id number] [place] [address] 89216- 4571 Jul, Depression F32.9 ; Generalized anxiety disorder F41.1 and Panic attack F41.0 [facility] [id number] [id number] 02 Jul, 2016 Dental examination Z01.20 [facility] [id number] [place] [address] 21121- 5071 30 Jun, 2016 [facility] [id number] [place] [address] 86108- 3535 30 Jun, 2016 Encounter for dental examination and cleaning without abnormal findings Z01.20 [facility] [id number] [place] [address] 12979- 6109 15 Jun, 2016 Intractable migraine without aura and with status migrainosus G43.011 ; 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 ; B12 deficiency E53.8 and Depression F32.9 [place] [id number] [place] [address] 82197- 9013 15 Jun, 2016 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 [place] [id number] [place] [address] 20013- 7869 14 Jun, 2016 Depression F32.9 ; Generalized anxiety disorder F41.1 ; Post traumatic stress disorder (PTSD) F43.10 and Panic attack F41.0 [place] [address] [place] [address] 29549- 3965 Jun, [place] [id number] [place] [address] 62696- 8657 Jun, [place] [id number] [place] [address] 86965- 3112 May, [place] [id number] [place] [address] 45477- 3048 May, Elevated glucose R73.09 ; Depression F32.9 ; Hyperlipidemia , unspecified E78.5 ; Prediabetes R73.03 ; B12 deficiency E53.8 ; Vertigo R42 ; Seborrheic keratosis L82.1 ; Chronic obstructive pulmonary disease, unspecified J44.9 and Blurry vision H53.8 [place] [id number] [place] [address] 92228- 4923 Apr, [place] [id number] [place] [address] 92394- 9787 Jan, Elevated glucose R73.09 ; Anemia D64.9 and Weakness generalized R53.1 [place] [address] 38520- 9383 Jan, [place] [address] 25093- 0400 Jan, [place] [address] 36921- 8474 December, Sciatica, left side M54.32 [place] [id number] [place] [address] 13285- 0563 Nov, Sciatica, unspecified side M54.30 ; Chronic obstructive pulmonary disease, unspecified J44.9 ; GERD (gastroesophageal reflux disease) K21.9 ; 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 and Pre-syncope R55 [place] [id number] [place] [address] 36348- 3639 Sep, [place] [address] [place] [address] 26760- 8048 Aug, Coumadin toxicity, accidental or unintentional, subsequent encounter T60.4X1D [place] [id number] [place] [address] 23566- 4839 Aug, [place] [id number] [place] [address] 79515- 7099 Aug, Coumadin toxicity, accidental or unintentional, subsequent encounter T60.4X1D ; Atherosclerosis of coronary artery bypass graft(s) without angina pectoris I25.810 and History of stroke Z86.73 [facility] [id number] [address] Aug, Ear canal abrasion, left, initial encounter S00.412A and Anticoagulant long-term use Z79.01 [facility] [address] [place] [address] 29317- 2103 Jul, [facility] [id number] [place] [address] 34390- 6901 Jul, Anticoagulant long-term use Z79.01 ; Polyarthralgia M25.50 ; Sciatica, left M54.32 ; Costochondritis M94.0 ; COPD exacerbation J44.1 and Depression F32.9 [place] [address] 06135- 0240 May, [facility] [id number] [place] [address] 12182- 3870 Apr, Hyperlipidemia 272.4 ; Coronary artery disease [...] HISTORY Never Assessed REASON FOR VISIT f/u [facility] PLAN OF CARE Activity Details Follow Up 2 Weeks Reason: f/u VITAL SIGNS Height 73 in 2018-02-10 Weight 272.5 lbs 2018-02-10 Heart Rate 92 bpm 2018-02-10 Respiratory Rate 20 2018-02-10 BMI 35.95 kg/m2 2018-02-10 Blood pressure systolic 118 mmHg 2018-02-10 Blood pressure diastolic 78 mmHg 2018-02-10 MEDICATIONS Medication Instructions Dosage Frequency Start Date End Date Duration Status Effient 10 MG Orally Once a day 1 tablet 24h Active Xifaxan 200 MG Orally daily 1 tablet 24h Active Combivent Respimat 20-100 MCG/ACT Inhalation Four times a day 1 puff 6h Active Ranexa 1000 MG Orally Twice a day 1 tablet 12h Active Pantoprazole Sodium 40 mg Orally Once a day 1 tablet 24h Jun, 90 days Active Zetia 10 MG Orally Once a day 1 tablet 24h Active Nitrostat 0.4 MG Sublingual q5 min max 3 doses in 15 min as needed for angina 1 tablet Active Pristiq 50 mg Orally Once a day 1 tablet 24h Feb, 30 day(s) Active Xarelto 20 MG Orally Once a day 1 tablet with food 24h 30 Active Amlodipine Besylate 5 MG Orally Once a day 1 tablet 24h Active Baclofen 20 TAKE 1 TABLET BY MOUTH THREE TIMES DAILY WITH FOOD OR MILK 30 Active Metoprolol Succinate ER 50 MG Orally 2 times a day 1 tablet 12h Active Tylenol Active Trazodone HCl 100 mg Orally Once a day at bedtime as needed for sleep 1/2 to 1 tablet Feb, 30 day(s) Active Isosorbide Mononitrate ER 60 MG Orally Once a day 1 tablet in the morning 24h 90 days Active Promethazine HCl 50 MG Orally every 6 hrs 0.5 tablet as needed for nausea 6h Jun, Active Plavix 75 MG Orally Once a day 1 tablet 24h Active Meclizine HCl 25 TAKE 1 TABLET BY MOUTH FOUR TIMES DAILY NEEDED FOR VERTIGO 30 Active Dicyclomine HCl 20 mg Orally Four times a day as needed 1 tablet Not-Taking BusPIRone HCl 10 mg Orally Twice a day 2 tablets 12h Active Atorvastatin Calcium 80 MG Orally Once a day 1 tablet 24h 90 days Active RESULTS No Results PROCEDURES Procedure Date Ordered Result Body Site [facility] VISIT ESTABLISHED PATIENT February 10, 2018 INSTRUCTIONS MEDICATIONS ADMINISTERED No Known Medications MEDICAL [...] 02/06/18 Hospitalization History For surgeries Hospitalization History [facility] in his Hospitalization History [facility]- Chest Pain; Hx of CAD 02/07/2018
--- OUTSIDE RECORDS SUMMARY | 2018-07-22 04:37 | XMS REPORT ---
Author Author CHANTELL RAMIREZ Organization [facility] Address [address] [place] [address] Care Team Providers Care Director Chemistry Name Role Phone JAMESCHANTELL Unavailable PROBLEMS Type Condition ICD9-CM Code MYN00-FL Code Onset Dates Condition Status SNOMED Code Problem History of stroke Z86.73 Active 903206576 Problem S/P CABG x 5 Z95.1 Active 687754261 Problem Anemia D64.9 Active 118312650 Problem Essential hypertension I10 Active 76017364 Problem Sciatica, unspecified side M54.30 Active 77578362 Problem Gastroparesis K31.84 Active 154771954 Problem Generalized anxiety disorder F41.1 Active 38070995 Problem Chronic obstructive pulmonary disease, unspecified J44.9 Active 76061319 Problem Intractable migraine without aura and with status migrainosus G43.011 Active 815517671 Problem 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 Active 60380027 Problem Sciatica of left side M54.32 Active 34390401 Problem Diarrhea, unspecified type R19.7 Active 94099167 Problem Other elevated white blood cell count D72.828 Active 866544686 Problem Acute right-sided low back pain with right-sided sciatica M54.41 Active 743950005 Problem GERD with esophagitis K21.0 Active 457260048 Problem Anticoagulant long-term use Z79.01 Active 953021124 Problem Hyperplastic colonic polyp, unspecified part of colon K63.5 Active 349958841 Problem Hyperlipidemia, unspecified E78.5 Active 22910240 Problem Cannabis abuse F12.10 Active 46519606 Problem Hepatic steatosis K76.0 Active 601902911 Problem 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 Active 62604628 Problem Mixed obsessional thoughts and acts F42.2 Active 65878759 Problem Paroxysmal atrial fibrillation I48.0 Active 543419578 Problem 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 Active 970750613 Problem Depression F32.9 Active 87984769 Problem GERD (gastroesophageal reflux disease) K21.9 Active 064970461 Problem Post traumatic stress disorder (PTSD) F43.10 Active 96880255 Problem Panic attack F41.0 Active 163972699 Problem Prediabetes R73.03 Active 722886856 Problem Vertigo R42 Active 452003174 ALLERGIES Substance Reaction Event Type Date Status Vicodin Unknown Drug Allergy Jun, Active PredniSONE Unknown Drug Allergy Jun, Active ENCOUNTERS Encounter Location Date Diagnosis [facility] [id number] [place] [address] 9534 Sep, [place] [address] [address] Jun, 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 ; Mixed obsessional thoughts and acts F42.2 and Cannabis abuse F12.10 [place] [address] 19[address] 9459 Apr, Cutaneous abscess of trunk, unspecified L02.219 ; Cellulitis of trunk, unspecified L03.319 and Acute right-sided low back pain with right-sided sciatica M54.41 [facility] [id number] [place] [address]2 Apr, Lumbar sprain, initial encounter S33.5XXA [facility] [id number] [place] [address] 76793- 3169 Mar, [facility] [address] [address] Feb, 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 ; Mixed obsessional thoughts and acts F42.2 and Cannabis abuse F12.10 [place] [address] 7[address]65- 8413 Feb, 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 ; Mixed obsessional thoughts and acts F42.2 and Cannabis abuse F12.10 [facility] [id number] [place] [address] 53926- 8108 Feb, GERD with esophagitis K21.0 [place] [id number] [place] [address] 62077- 5395 Feb, [place] [id number] [place] [address] 67817- 2900 Nov, Chronic combined systolic (congestive) and diastolic ( congestive) heart failure I50.42 ; Chronic obstructive pulmonary disease, unspecified J44.9 ; Essential hypertension I10 ; Hyperlipidemia, unspecified E78.5 ; Anticoagulant long-term use Z79.01 ; Depression F32.9 ; Paroxysmal atrial fibrillation I48.0 and 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 [place] [id number] [place] [address] 25930- 6956 Oct, Chronic obstructive pulmonary disease, unspecified J44.9 [place] [address] 94485- 9405 Sep, Severe recurrent major depression without psychotic features F33.2 ; Mixed obsessional thoughts and acts F42.2 and Cannabis abuse F12.10 [place] [id number] [place] [address] 51850- 1671 Aug, 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 ; Mixed obsessional thoughts and acts F42.2 and Cannabis abuse F12.10 [place] [id number] [place] [address] 66813- 4923 Aug, 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 and Mixed obsessional thoughts and acts F42.2 [place] [id number] [place] [address] 01985- 7688 Jul, 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 and Mixed obsessional thoughts and acts F42.2 [place] [id number] [place] [address] 66140- 3364 Jul, 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 and Mixed obsessional thoughts and acts F42.2 [place] [id number] [place] [address] 70539- 2257 Jul, 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 ; Mixed obsessional thoughts and acts F42.2 and Cannabis abuse F12.10 [place] [id number] [place] [address] 31649- 1286 Jun, 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 ; Mixed obsessional thoughts and acts F42.2 and Cannabis abuse F12.10 [place] [id number] [place] [address] 97683- 4079 Jun, [place] [id number] [place] [address] Jun, 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.2 ; Mixed obsessional thoughts and acts F42.2 and Cannabis abuse F12.10 [place] [id number] [place] [address] 39076- 4891 May, Severe recurrent major depression without psychotic features F33.2 ; Mixed obsessional thoughts and acts F42.2 and Cannabis abuse F12.10 [place] [id number] [place] [address] 19384- 2199 May, Severe recurrent major depression without psychotic features F33.2 [place] [id number] [place] [address] 54145- 0837 Mar, [place] [id number] [place] [address] 95046- 5649 Mar, Chronic combined systolic (congestive) and diastolic ( congestive) heart failure I50.42 ; Diarrhea, unspecified type R19.7 ; Hepatic steatosis K76.0 and Generalized postprandial abdominal pain R10.84 [place] [id number] [place] [address] 07836- 6939 Jan, Generalized abdominal pain R10.84 [place] [id number] [place] [address] 73117- 3656 Jan, Generalized abdominal pain R10.84 ; Generalized postprandial abdominal pain R10.84 ; Diarrhea, unspecified type R19.7 ; Non- intractable vomiting with nausea, unspecified vomiting type R11.2 ; GERD ( gastroesophageal reflux disease) K21.9 ; S/P CABG x 5 Z95.1 ; Prominent abdominal aortic pulsation R09.89 and Other elevated white blood cell count D72.828 [place] [id number] [place] [address] 19385- 2324 Jan, Vertigo R42 [place] [address] 07597- 2613 Jan, Other elevated white blood cell count D72.828 [place] [address] 12202- 8026 Jan, Other elevated white blood cell count D72.828 [place] [address] 99593- 8943 Jan, Hyperlipidemia, unspecified E78.5 ; Sciatica of left side M54.32 ; Weight loss R63.4 and Night sweats R61 [facility] [id number] [place] [address] [id number] December, Dental caries K02.9 and Dental examination Z01.20 [place] [id number] [place] [address] 80362- 9208 Oct, Vertigo R42 ; Nausea R11.0 ; Chronic obstructive pulmonary disease, unspecified J44.9 ; GERD (gastroesophageal reflux disease) K21.9 ; S/P CABG x 5 Z95.1 ; Hyperlipidemia, unspecified E78.5 ; Essential hypertension I10 ; Paroxysmal atrial fibrillation I48.0 and Depression F32.9 [place] [address] 60603- 3404 Oct, [place] [id number] [place] [address] 91393- 0109 Oct, Hyperlipidemia, unspecified E78.5 [place] [address] [place] [address]- [address] 16 Oct, 2016 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 [facility] [id number] [place] [address] 79968- 6742 15 Oct, 2016 Vertigo R42 [facility] [id number] [place] [address] 63832- 0764 03 Oct, 2016 [facility] [address] 14485- 8133 Sep, [facility] [id number] [place] [address] 03282- 9792 Aug, 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 [facility] [id number] [place] [phone] 05 Jul, 2016 Depression F32.9 ; Generalized anxiety disorder F41.1 and Panic attack F41.0 [facility] [address] [id number] Jul, 2016 Dental examination Z01.20 [facility] [id number] [place] [address] 63149- 9994 30 Jun, 2016 [facility] [id number] [place] [address] 05252- 8048 30 Jun, 2016 Encounter for dental examination and cleaning without abnormal findings Z01.20 [facility] [id number] [place] [address] 03107- 8394 15 Jun, 2016 Intractable migraine without aura and with status migrainosus G43.011 ; 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 ; B12 deficiency E53.8 and Depression F32.9 [facility] [id number] [place] [address] 57059- 5765 15 Jun, 2016 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 [facility] [id number] [place] [address] 60996- 9597 14 Jun, 2016 Depression F32.9 ; Generalized anxiety disorder F41.1 ; Post traumatic stress disorder (PTSD) F43.10 and Panic attack F41.[address] [address]26- 8071 Jun, [address] 6[address]- 5409 Jun, [address] 21110- 3621 May, [address] 62029- 3575 May, Elevated glucose R73.09 ; Depression F32.9 ; Hyperlipidemia , unspecified E78.5 ; Prediabetes R73.03 ; B12 deficiency E53.8 ; Vertigo R42 ; Seborrheic keratosis L82.1 ; Chronic obstructive pulmonary disease, unspecified J44.9 and Blurry vision H53.[address] 34595- 8919 Apr, [address] 31375- 0502 Jan, Elevated glucose R73.09 ; Anemia D64.9 and Weakness generalized R53.1 [place] [id number] [place] [address] 65918- 6528 Jan, [address] 42155- 0774 Jan, [address] 21459- 8985 December, Sciatica, left side M54.[address] 02886- 9831 Nov, Sciatica, unspecified side M54.30 ; Chronic obstructive pulmonary disease, unspecified J44.9 ; GERD (gastroesophageal reflux disease) K21.9 ; 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 and Pre-syncope R55 [place] [id number] [place] [address] 57704- 7224 Sep, [place] [address] 95681- 7440 Aug, Coumadin toxicity, accidental or unintentional, subsequent encounter T60.4X1D [place] [address] 80651- 7156 Aug, [facility] [address] 03717- 4834 Aug, Coumadin toxicity, accidental or unintentional, subsequent encounter T60.4X1D ; Atherosclerosis of coronary artery bypass graft(s) without angina pectoris I25.810 and History of stroke Z86.73 [facility] [id number] [place] [address] 83087 -9944 Aug, Ear canal abrasion, left, initial encounter S00.412A and Anticoagulant long-term use Z79.01 [place] [id number] [place] [address] 32083- 6391 Jul, [address] 11663- 8287 Jul, Anticoagulant long-term use Z79.01 ; Polyarthralgia M25.50 ; Sciatica, left M54.32 ; Costochondritis M94.0 ; COPD exacerbation J44.1 and Depression F32.9 [place] [address] 43185- 1281 May, [place] [address] 73750- 5449 Apr, Hyperlipidemia 272.4 ; Coronary artery disease [...] PLAN OF CARE Activity Details Follow Up 3 Months Reason: Follow-up VITAL SIGNS Height 73 in 2018-07-02 Weight 280 lbs 2018-07-02 Heart Rate 84 bpm 2018-07-02 Respiratory Rate 20 2018-07-02 BMI 36.94 kg/m2 2018-07-02 Blood pressure systolic 126 mmHg 2018-07-02 Blood pressure diastolic 70 mmHg 2018-07-02 MEDICATIONS Medication Instructions Dosage Frequency Start Date End Date Duration Status BusPIRone HCl 10 mg Orally twice a day 2 TABLETS 12h 30 days Active Isosorbide Mononitrate ER 60 MG Orally Once a day 1 tablet in the morning 24h 90 days Active Promethazine HCl 50 MG Orally every 6 hrs 0.5 tablet as needed for nausea 6h Jun, Active Baclofen 20 TAKE 1 TABLET BY MOUTH THREE TIMES DAILY WITH FOOD OR MILK 30 Active Meclizine HCl 25 TAKE 1 TABLET BY MOUTH FOUR TIMES DAILY NEEDED FOR VERTIGO 30 Active Trazodone HCl 100 mg Orally Once a day at bedtime as needed for sleep 1/2 to 1 tablet Feb, 30 day(s) Active Plavix 75 MG Orally Once a day 1 tablet 24h Active Metoprolol Succinate ER 50 MG Orally 2 times a day 1 tablet 12h Active Pantoprazole Sodium 40 mg Orally Once a day 1 tablet 24h Jun, 90 days Active Tylenol Active Xarelto 20 MG Orally Once a day 1 tablet with food 24h 30 Active Nitrostat 0.4 MG Sublingual q5 min max 3 doses in 15 min as needed for angina 1 tablet Active Dicyclomine HCl 20 mg Orally Four times a day as needed 1 tablet Unknown Cymbalta 30 MG Orally Once a day for two weeks, then stop, tapering out 1 capsule Jun, 14 days Active Combivent Respimat 20-100 MCG/ACT Inhalation Four times a day 1 puff 6h Not-Taking Atorvastatin Calcium 80 MG Orally Once a day 1 tablet 24h 90 Active Zetia 10 MG Orally Once a day 1 tablet 24h Active Pristiq 100 mg Orally Once a day 1 tablet 24h Jun, 30 day(s) Active Baclofen 20 mg TAKE 1 TABLET BY MOUTH THREE TIMES DAILY WITH FOOD OR MILK Active Effient 10 MG Orally Once a day 1 tablet 24h Active Xifaxan 200 MG Orally daily 1 tablet 24h Active Gabapentin 300 MG Orally Start 1 cap at HS [id number], then [id number], then TID 1 capsule Apr, 30 day(s) Active Amlodipine Besylate 5 MG Orally Once a day 1 tablet 24h Active Ranexa 1000 MG Orally Twice a day 1 tablet 12h Active RESULTS No Results PROCEDURES Procedure Date Ordered Result Body Site [facility] VISIT ESTABLISHED PATIENT Jul 02, 2018 INSTRUCTIONS MEDICATIONS ADMINISTERED No Known Medications [...] 02/06/18 Hospitalization History For surgeries Hospitalization History [facility] in his 20's Hospitalization History [facility]- Chest Pain; Hx of CAD 02/07/2018
--- OUTSIDE RECORDS SUMMARY | 2018-07-22 04:37 | XMS REPORT ---
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 Name Role Phone HALLE SCHNEIDER Unavailable PROBLEMS Type Condition ICD9-CM Code CJL40-DX Code Onset Dates Condition Status SNOMED Code Problem History of stroke Z86.73 Active 939732098 Problem S/P CABG x 5 Z95.1 Active 429756681 Problem Anemia D64.9 Active 183241729 Problem Essential hypertension I10 Active 10907430 Problem Sciatica, unspecified side M54.30 Active 93356204 Problem Panic attack F41.0 Active 917142287 Problem Gastroparesis K31.84 Active 465922501 Problem Generalized anxiety disorder F41.1 Active 13479249 Problem Chronic obstructive pulmonary disease, unspecified J44.9 Active 51123451 Problem Intractable migraine without aura and with status migrainosus G43.011 Active 844868142 Problem Other elevated white blood cell count D72.828 Active 127402052 Problem Sciatica of left side M54.32 Active 32353417 Problem GERD with esophagitis K21.0 Active 419324339 Problem 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 Active 46282348 Problem Hyperplastic colonic polyp, unspecified part of colon K63.5 Active 066747922 Problem Hyperlipidemia, unspecified E78.5 Active 12040046 Problem 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 Active 29186557 Problem Hepatic steatosis K76.0 Active 676890203 Problem Diarrhea, unspecified type R19.7 Active 34814855 Problem Mixed obsessional thoughts and acts F42.2 Active 81636292 Problem Cannabis abuse F12.10 Active 77909061 Problem GERD (gastroesophageal reflux disease) K21.9 Active 330538529 Problem Paroxysmal atrial fibrillation I48.0 Active 500483039 Problem Anticoagulant long-term use Z79.01 Active 157285154 Problem Depression F32.9 Active 52503493 Problem Vertigo R42 Active 624873106 Problem Post traumatic stress disorder (PTSD) F43.10 Active 45505619 Problem 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 Active 142289763 Problem Prediabetes R73.03 Active 287298048 ALLERGIES No Information ENCOUNTERS Encounter Location Date Diagnosis [place] [id number] [place] [address] Mar, [place] [address] [address] Feb, 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 ; Mixed obsessional thoughts and acts F42.2 and Cannabis abuse F12.10 [place] [id number] [place] [address] 96[address]- [address] Feb, 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01 ; Depression F32.9 ; Paroxysmal atrial fibrillation I48.0 and 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 and Mixed obsessional thoughts and acts F42.2 [place] [address], [place] [address] Jul, 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 ; Mixed obsessional thoughts and acts F42.2 and Cannabis abuse F12.10 [place] [address] [address] Jun, 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 ; Mixed obsessional thoughts and acts F42.2 and Cannabis abuse F12.10 [place] [address] [address] Jun, [facility] [address] [address] Jun, 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 ; Mixed obsessional thoughts and acts F42.2 and Cannabis abuse F12.10 [place] [address] [address] May, 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 ; Mixed obsessional thoughts and acts F42.2 and Cannabis abuse F12.10 [place] [id number] [place] [address] 27128- 8847 May, 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 [place] [id number] [place] [address] 39109- 8[address] Mar, [place] [address] [address] Mar, Chronic combined systolic (congestive) and diastolic ( congestive) heart failure I50.42 ; Diarrhea, unspecified type R19.7 ; Hepatic steatosis K76.0 and Generalized postprandial abdominal pain R10.84 [place] [id number] [place] [address] 94353- 9150 Jan, Generalized abdominal pain R10.84 [place] [id number] [place] [address] 37527- 7[address] Jan, Generalized abdominal pain R10.84 ; Generalized postprandial abdominal pain R10.84 ; Diarrhea, unspecified type R19.7 ; Non- intractable vomiting with nausea, unspecified vomiting type R11.2 ; GERD ( gastroesophageal reflux disease) K21.9 ; S/P CABG x 5 Z95.1 ; Prominent abdominal aortic pulsation R09.89 and Other elevated white blood cell count D72.828 [place] [id number] [place] [address] 59402- 4995 Jan, Vertigo R42 [place] [id number] [place] [address] 88846- 8741 Jan, Other elevated white blood cell count D72.828 [place] [address] [address]- [address]85 Jan, Other elevated white blood cell count D72.828 [place] [id number] [place] [address] 90427- 2824 Jan, Hyperlipidemia, unspecified E78.5 ; Sciatica of left side M54.32 ; Weight loss R63.4 and Night sweats R61 [facility] [address] [id number] December, Dental caries K02.9 and Dental examination Z01.20 [facility] [id number] [place] [address] 12509- 8282 Oct, Vertigo R42 ; Nausea R11.0 ; Chronic obstructive pulmonary disease, unspecified J44.9 ; GERD (gastroesophageal reflux disease) K21.9 ; S/P CABG x 5 Z95.1 ; Hyperlipidemia, unspecified E78.5 ; Essential hypertension I10 ; Paroxysmal atrial fibrillation I48.0 and Depression F32.9 [place] [address] [address]- [address] Oct, [place] [address] [address]- [address] Oct, Hyperlipidemia, unspecified E78.5 [place] [address] 77137- 3[address] Oct, 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 [place] [id number] [place] [address] 81140- 9416 Oct, Vertigo R42 [facility] [address] [address]- [address] Oct, [place] [id number] [place] [address] 66661- 6668 Sep, [facility] [id number] [place] [address] 14758- 6525 Aug, 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 [facility] [id number] [place] [address] 71962- 9538 Jul, Depression F32.9 ; Generalized anxiety disorder F41.1 and Panic attack F41.0 [facility] [address] [place] [id number] 02 Jul, 2016 Dental examination Z01.20 [place] [id number] [place] [address] 676[address]- [address] 30 Jun, 2016 [place] [address] [address] 30 Jun, 2016 Encounter for dental examination and cleaning without abnormal findings Z01.20 [place] [id number] [place] [address] 20979- 3614 15 Jun, 2016 Intractable migraine without aura and with status migrainosus G43.011 ; 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 ; B12 deficiency E53.8 and Depression F32.[address] [address]- [address] 15 Jun, 2016 Severe recurrent major depression without psychotic features F33.[address] [address]- 9656 14 Jun, 2016 Depression F32.9 ; Generalized anxiety disorder F41.1 ; Post traumatic stress disorder (PTSD) F43.10 and Panic attack F41.[address] 814[address]- [address]683 Jun, [address] [address]99[address]- 8614 Jun, [address] [address]- [address] May, [place] [address] May, Elevated glucose R73.09 ; Depression F32.9 ; Hyperlipidemia , unspecified E78.5 ; Prediabetes R73.03 ; B12 deficiency E53.8 ; Vertigo R42 ; Seborrheic keratosis L82.1 ; Chronic obstructive pulmonary disease, unspecified J44.9 and Blurry vision H53.[address] [address]- [address]89 Apr, [id number] [place] [address] 32354- 3488 Jan, Elevated glucose R73.09 ; Anemia D64.9 and Weakness generalized R53.1 [place] [address] 399[address]- 8335 Jan, [place] [address] 02203- [address] Jan, [place] [address] 12[address]- 67[address] December, Sciatica, left side M54.[address] 6[address]- [address]151 Nov, Sciatica, unspecified side M54.30 ; Chronic obstructive pulmonary disease, unspecified J44.9 ; GERD (gastroesophageal reflux disease) K21.9 ; 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 and Pre-syncope R55 [place] [id number] [place] [address] 87999- 6613 Sep, [place] [address] 87865- [address] Aug, Coumadin toxicity, accidental or unintentional, subsequent encounter T60.4X1D [place] [id number] [place] [address] 53935- 0788 Aug, [place] [address] 38[address]- 2032 Aug, Coumadin toxicity, accidental or unintentional, subsequent encounter T60.4X1D ; Atherosclerosis of coronary artery bypass graft(s) without angina pectoris I25.810 and History of stroke Z86.73 [facility] [id number] [place] [address] 69025 -[address]72 Aug, Ear canal abrasion, left, initial encounter S00.412A and Anticoagulant long-term use Z79.01 [place] [address] [address] [place] [address] Jul, [facility] [id number] [address] Jul, Anticoagulant long-term use Z79.01 ; Polyarthralgia M25.50 ; Sciatica, left M54.32 ; Costochondritis M94.0 ; COPD exacerbation J44.1 and Depression F32.9 [facility] [id number] [address] May, [facility] [address] [facility] [id number] [address] Apr, Hyperlipidemia 272.4 ; Coronary artery disease 414.00 ; History of stroke V12.54 ; COPD (chronic obstructive pulmonary disease) 496 ; Hypertension 401.9 ; Sciatica 724.3 ; Encounter for monitoring coumadin therapy V58.83 ; Vertigo as late effect of stroke 438.85 ; Generalized anxiety disorder 300.02 and GERD (gastroesophageal reflux disease) 530.81 IMMUNIZATIONS No Known Immunizations SOCIAL HISTORY Never Assessed REASON FOR VISIT intake PLAN OF CARE Activity Details Follow Up next available Reason:depression & anxiety VITAL SIGNS MEDICATIONS Medication Instructions Dosage Frequency Start Date End Date Duration Status Combivent Respimat 20-100 MCG/ACT Inhalation Four times a day 1 puff 6h Unknown Ranexa 1000 MG Orally Twice a day 1 tablet 12h Unknown Meclizine HCl 25 TAKE 1 TABLET BY MOUTH FOUR TIMES DAILY NEEDED FOR VERTIGO 30 Unknown Isosorbide Mononitrate ER 60 MG Orally Once a day 1 tablet in the morning 24h 90 days Unknown Promethazine HCl 50 MG Orally every 6 hrs 0.5 tablet as needed for nausea 6h Jun, Active Metoprolol Succinate ER 50 MG Orally 2 times a day 1 tablet 12h Unknown Xarelto 20 MG Orally Once a day 1 tablet with food 24h 30 Unknown Effient 10 MG Orally Once a day 1 tablet 24h Unknown Trazodone HCl 100 mg Orally Once a day at bedtime as needed for sleep 1/2 to 1 tablet Feb, 30 day(s) Unknown Plavix 75 MG Orally Once a day 1 tablet 24h Unknown Atorvastatin Calcium 80 MG Orally Once a day 1 tablet 24h 90 Unknown BusPIRone HCl 10 mg Orally Twice a day 2 tablets 12h Unknown Pantoprazole Sodium 40 mg Orally Once a day 1 tablet 24h Jun, 90 days Unknown Xifaxan 200 MG Orally daily 1 tablet 24h Unknown Baclofen 20 TAKE 1 TABLET BY MOUTH THREE TIMES DAILY WITH FOOD OR MILK 30 Unknown Isosorbide Mononitrate ER 60 MG 1 TABLET IN THE MORNING ONCE A DAY ORALLY 90 DAYS 90 Unknown Amlodipine Besylate 5 MG Orally Once a day 1 tablet 24h Unknown Tylenol Unknown Pristiq 50 mg Orally Once a day 1 tablet 24h Feb, 30 day(s) Unknown Zetia 10 MG Orally Once a day 1 tablet 24h Unknown Nitrostat 0.4 MG Sublingual q5 min max 3 doses in 15 min as needed for angina 1 tablet Unknown Dicyclomine HCl 20 mg Orally Four times a day as needed 1 tablet Unknown RESULTS No Results PROCEDURES Procedure Date Ordered Result Body Site [facility] VISIT MENTAL HEALTH ESTAB PT February 25, 2018 Psych diagnostic evaluation, established patient February 25, 2018 INSTRUCTIONS MEDICATIONS ADMINISTERED No Known Medications [...] 02/06/18 Hospitalization History For surgeries Hospitalization History [facility] in his 20's Hospitalization History [facility]- Chest Pain; Hx of CAD 02/07/2018
--- OUTSIDE RECORDS SUMMARY | 2018-07-22 04:38 | XMS REPORT ---
Author Author LUPHIL Linda Organization [facility] Address [address] [place] [address] Care Team Providers Care Drafter Patent Name Role Phone PHIL LU Unavailable PROBLEMS Type Condition ICD9-CM Code YQL10-WQ Code Onset Dates Condition Status SNOMED Code Problem History of stroke Z86.73 Active 214738702 Problem S/P CABG x 5 Z95.1 Active 819367630 Problem Anemia D64.9 Active 326372557 Problem Essential hypertension I10 Active 65181691 Problem Sciatica, unspecified side M54.30 Active 67229477 Problem Panic attack F41.0 Active 234731171 Problem Gastroparesis K31.84 Active 444469928 Problem Generalized anxiety disorder F41.1 Active 04365030 Problem Chronic obstructive pulmonary disease, unspecified J44.9 Active 57423913 Problem Intractable migraine without aura and with status migrainosus G43.011 Active 588092953 Problem Other elevated white blood cell count D72.828 Active 973570518 Problem Sciatica of left side M54.32 Active 81110943 Problem GERD with esophagitis K21.0 Active 535699908 Problem 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 Active 77156424 Problem Hyperplastic colonic polyp, unspecified part of colon K63.5 Active 095450851 Problem Hyperlipidemia, unspecified E78.5 Active 08567107 Problem 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 Active 59464461 Problem Hepatic steatosis K76.0 Active 976936073 Problem Diarrhea, unspecified type R19.7 Active 41252234 Problem Mixed obsessional thoughts and acts F42.2 Active 40358846 Problem Cannabis abuse F12.10 Active 36262242 Problem GERD (gastroesophageal reflux disease) K21.9 Active 304947863 Problem Paroxysmal atrial fibrillation I48.0 Active 131382609 Problem Anticoagulant long-term use Z79.01 Active 740247212 Problem Depression F32.9 Active 60977624 Problem Vertigo R42 Active 523554920 Problem Post traumatic stress disorder (PTSD) F43.10 Active 92877701 Problem 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 Active 999091520 Problem Prediabetes R73.03 Active 524314765 ALLERGIES Substance Reaction Event Type Date Status Vicodin Unknown Drug Allergy Feb, Active PredniSONE Unknown Drug Allergy Feb, Active ENCOUNTERS Encounter Location Date Diagnosis [facility] [id number] [place] [id number] Apr, [facility] [address] [address] Mar, [facility] [address] [address] Feb, 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 ; Mixed obsessional thoughts and acts F42.2 and Cannabis abuse F12.10 [facility] [id number] [place] [address]- [address]478 Feb, 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 ; Mixed obsessional thoughts and acts F42.2 and Cannabis abuse F12.10 [facility] [id number] [place] [address]29- 4590 Feb, GERD with esophagitis K21.0 [facility] [id number] [place] [address] 22090- 6226 Feb, [facility] [id number] [place] [address] 11537- 2144 Nov, Chronic combined systolic (congestive) and diastolic ( congestive) heart failure I50.42 ; Chronic obstructive pulmonary disease, unspecified J44.9 ; Essential hypertension I10 ; Hyperlipidemia, unspecified E78.5 ; Anticoagulant long-term use Z79.01 ; Depression F32.9 ; Paroxysmal atrial fibrillation I48.0 and 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 [facility] [id number] [place] [address] 99910- 5248 Oct, Chronic obstructive pulmonary disease, unspecified J44.9 [facility] [address] [place] [address] Sep, 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 ; Mixed obsessional thoughts and acts F42.2 and Cannabis abuse F12.10 [address] [address] [address] Aug, 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 ; Mixed obsessional thoughts and acts F42.2 and Cannabis abuse F12.10 [place] [address] [id number] [place] [address] 44408- 4111 Aug, 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 and Mixed obsessional thoughts and acts F42.2 [place] [id number] [place] [address] 93811- 8008 Jul, 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 and Mixed obsessional thoughts and acts F42.2 [place] [id number] [place] [address] 17551- 8398 Jul, 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 and Mixed obsessional thoughts and acts F42.2 [place] [address] [place] [address] 66985- 6829 Jul, 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 ; Mixed obsessional thoughts and acts F42.2 and Cannabis abuse F12.10 [place] [address] [place] [address] 45776- 3982 Jun, 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 ; Mixed obsessional thoughts and acts F42.2 and Cannabis abuse F12.10 [place] [id number] [place] [address] 76498- 1546 Jun, [place] [id number] [place] [address] 43710- 9502 Jun, 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 ; Mixed obsessional thoughts and acts F42.2 and Cannabis abuse F12.10 [place] [id number] [place] [address] 05075- 7228 May, 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 ; Mixed obsessional thoughts and acts F42.2 and Cannabis abuse F12.10 [place] [id number] [place] [address] 19545- 7212 May, 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 [place] [address] [address]- [address] Mar, [place] [address] [address] Mar, Chronic combined systolic (congestive) and diastolic ( congestive) heart failure I50.42 ; Diarrhea, unspecified type R19.7 ; Hepatic steatosis K76.0 and Generalized postprandial abdominal pain R10.84 [place] [address] [address]- [address] Jan, Generalized abdominal pain R10.84 [place] [id number] [place] [address] 89483- 6561 Jan, Generalized abdominal pain R10.84 ; Generalized postprandial abdominal pain R10.84 ; Diarrhea, unspecified type R19.7 ; Non- intractable vomiting with nausea, unspecified vomiting type R11.2 ; GERD ( gastroesophageal reflux disease) K21.9 ; S/P CABG x 5 Z95.1 ; Prominent abdominal aortic pulsation R09.89 and Other elevated white blood cell count D72.828 [place] [id number] [place] [address] 42673- 5797 Jan, Vertigo R42 [place] [address] [address]78- 3617 Jan, Other elevated white blood cell count D72.828 [place] [id number] [place] [address] 34942- 7236 Jan, Other elevated white blood cell count D72.828 [place] [address], [place] [address] Jan, Hyperlipidemia, unspecified E78.5 ; Sciatica of left side M54.32 ; Weight loss R63.4 and Night sweats R61 [facility] [address] [id number] December, Dental caries K02.9 and Dental examination Z01.20 [place] [id number] [place] [address] 27801- 0760 Oct, Vertigo R42 ; Nausea R11.0 ; Chronic obstructive pulmonary disease, unspecified J44.9 ; GERD (gastroesophageal reflux disease) K21.9 ; S/P CABG x 5 Z95.1 ; Hyperlipidemia, unspecified E78.5 ; Essential hypertension I10 ; Paroxysmal atrial fibrillation I48.0 and Depression F32.9 [place] [id number] [place] [address] 32575- 2380 Oct, [place] [id number] [place] [address] 54453- 7875 Oct, Hyperlipidemia, unspecified E78.5 [place] [id number] [place] [address] 22607- 1397 Oct, 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 [place] [id number] [place] [address] 57261- 6675 Oct, Vertigo R42 [place] [id number] [place] [address] 88331- 2219 Oct, [place] [id number] [place] [address] 59349- 0833 Sep, [place] [id number] [place] [address] 74943- 5869 Aug, 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 [place] [id number] [place] [address] 49896- 1127 Jul, Depression F32.9 ; Generalized anxiety disorder F41.1 and Panic attack F41.0 [facility] [address] [place] [address] [id number] Jul, 2016 Dental examination Z01.20 [facility] [id number] [place] [address] 27532- 2670 30 Jun, 2016 [facility] [id number] [place] [address] 67163- 9097 30 Jun, 2016 Encounter for dental examination and cleaning without abnormal findings Z01.20 [facility] [id number] [place] [address] 09221- 4096 15 Jun, 2016 Intractable migraine without aura and with status migrainosus G43.011 ; 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 ; B12 deficiency E53.8 and Depression F32.9 [place] [id number] [place] [address] 35356- 9091 15 Jun, 2016 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 [place] [id number] [place] [address] 72150- 9995 14 Jun, 2016 Depression F32.9 ; Generalized anxiety disorder F41.1 ; Post traumatic stress disorder (PTSD) F43.10 and Panic attack F41.0 [place] [id number] [place] [address] 94746- 5579 04 Jun, 2016 [place] [id number] [place] [address] 90366- 3601 Jun, [place] [id number] [place] [address] 16214- 9008 May, [place] [address] [address]- 2693 May, Elevated glucose R73.09 ; Depression F32.9 ; Hyperlipidemia , unspecified E78.5 ; Prediabetes R73.03 ; B12 deficiency E53.8 ; Vertigo R42 ; Seborrheic keratosis L82.1 ; Chronic obstructive pulmonary disease, unspecified J44.9 and Blurry vision H53.8 [place] [id number] [place] [address] 16387- 1999 Apr, [place] [address] [address]- 8735 Jan, Elevated glucose R73.09 ; Anemia D64.9 and Weakness generalized R53.1 [place] [address] [address]26- 3816 Jan, [place] [address] 37324- 5145 Jan, [place] [address] [address]- [address] December, Sciatica, left side M54.[address] [address]- [address] Nov, Sciatica, unspecified side M54.30 ; Chronic obstructive pulmonary disease, unspecified J44.9 ; GERD (gastroesophageal reflux disease) K21.9 ; 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 and Pre-syncope R55 [place] [id number] [place] [address] 51939- 5516 Sep, [place] [id number] [place] [address] 72701- 6238 Aug, Coumadin toxicity, accidental or unintentional, subsequent encounter T60.4X1D [place] [id number] [place] [address] 50623- 4237 Aug, [place] [address] 26221- 7749 Aug, Coumadin toxicity, accidental or unintentional, subsequent encounter T60.4X1D ; Atherosclerosis of coronary artery bypass graft(s) without angina pectoris I25.810 and History of stroke Z86.73 [facility] [address] [place] [address] Aug, Ear canal abrasion, left, initial encounter S00.412A and Anticoagulant long-term use Z79.01 [facility] [address] [place] [address] [id number]- 2738 Jul, [facility] [id number] [place] [address] 160066- 0305 Jul, Anticoagulant long-term use Z79.01 ; Polyarthralgia M25.50 ; Sciatica, left M54.32 ; Costochondritis M94.0 ; COPD exacerbation J44.1 and Depression F32.9 [place] [id number] [place] [address] 946291- 4538 May, [facility] [id number] [place] [address] 57728- 0995 Apr, Hyperlipidemia 272.4 ; Coronary artery disease 414.00 ; History of stroke V12.54 ; COPD (chronic obstructive pulmonary disease) 496 ; Hypertension 401.9 ; Sciatica 724.3 ; Encounter for monitoring coumadin therapy V58.83 ; Vertigo as late effect of stroke 438.85 ; Generalized anxiety disorder 300.02 and GERD (gastroesophageal reflux disease) 530.81 IMMUNIZATIONS No Known Immunizations SOCIAL HISTORY Never Assessed REASON FOR VISIT Epigastric Pain following cardiac cath which happened on 02/07/18, patient states that they reopened two stents that had been collapsed. , c/o SOA "feels like he has to force air into his lungs to even talk today", c/o nausea, dizzy, light- headed, cold sweats, and states that he is having constant angina that tends to increase at times with sharp pain and chest pressure-awoods PLAN OF CARE Activity Details Follow Up 3 Months, prn Reason:CHM/W/ PCP VITAL SIGNS Height 73 in 2018-02-10 Weight 270.1 lbs 2018-02-10 Temperature 98.9 degrees Fahrenheit 2018-02-10 Heart Rate 108 bpm 2018-02-10 Respiratory Rate 20 2018-02-10 Oximetry on room air:99 % 2018-02-10 BMI 35.63 kg/m2 2018-02-10 Blood pressure systolic 110 mmHg 2018-02-10 Blood pressure diastolic 72 mmHg 2018-02-10 MEDICATIONS Medication Instructions Dosage Frequency Start Date End Date Duration Status BusPIRone HCl 10 mg Orally Twice a day 2 tablets 12h Active Zetia 10 MG Orally Once a day 1 tablet 24h Active Isosorbide Mononitrate ER 60 MG Orally Once a day 1 tablet in the morning 24h 90 days Active Tylenol Active Nitrostat 0.4 MG Sublingual q5 min max 3 doses in 15 min as needed for angina 1 tablet Active Xarelto 20 MG Orally Once a day 1 tablet with food 24h 30 Active Ranexa 1000 MG Orally Twice a day 1 tablet 12h Active Xifaxan 200 MG Orally daily 1 tablet 24h Active Plavix 75 MG Orally Once a day 1 tablet 24h Active Duloxetine HCl 60 mg Orally Once a day 2 capsule 24h Active Pantoprazole Sodium 40 mg Orally Once a day 1 tablet 24h 03 Jun, 2016 90 days Active Atorvastatin Calcium 80 MG Orally Once a day 1 tablet 24h 90 days Active Baclofen 20 TAKE 1 TABLET BY MOUTH THREE TIMES DAILY WITH FOOD OR MILK 30 Active Effient 10 MG Orally Once a day 1 tablet 24h Active Amlodipine Besylate 5 MG Orally Once a day 1 tablet 24h Active Combivent Respimat 20-100 MCG/ACT Inhalation Four times a day 1 puff 6h Active Meclizine HCl 25 TAKE 1 TABLET BY MOUTH FOUR TIMES DAILY NEEDED FOR VERTIGO 30 Active Dicyclomine HCl 20 mg Orally Four times a day as needed 1 tablet Active Metoprolol Succinate ER 50 MG Orally 2 times a day 1 tablet 12h Active Promethazine HCl 50 MG Orally every 6 hrs 0.5 tablet as needed for nausea 6h Jun, Active RESULTS No Results PROCEDURES Procedure Date Ordered Result Body Site [facility] VISIT ESTABLISHED PATIENT February 10, 2018 [...] 02/06/18 Hospitalization History For surgeries Hospitalization History [facility]; Hx of CAD 02/07/2018
--- OUTSIDE RECORDS SUMMARY | 2018-07-22 04:38 | XMS REPORT ---
Author Author ROJAS JUNIOR [facility] Address [address] [place] [address] Care Team Providers Care Database Software Technician Name Role Phone ESTEFANIA XIEY Unavailable PROBLEMS Type Condition ICD9-CM Code EFF48-KI Code Onset Dates Condition Status SNOMED Code Problem History of stroke Z86.73 Active 673838867 Problem S/P CABG x 5 Z95.1 Active 809077657 Problem Anemia D64.9 Active 968557718 Problem Essential hypertension I10 Active 43371376 Problem Panic attack F41.0 Active 651032352 Problem Sciatica, unspecified side M54.30 Active 43157246 Problem Generalized anxiety disorder F41.1 Active 29234066 Problem Chronic obstructive pulmonary disease, unspecified J44.9 Active 07234179 Problem Intractable migraine without aura and with status migrainosus G43.011 Active 030265438 Problem Other elevated white blood cell count D72.828 Active 192672393 Problem Sciatica of left side M54.32 Active 64045393 Problem GERD with esophagitis K21.0 Active 694670201 Problem 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 Active 92863891 Problem Hyperplastic colonic polyp, unspecified part of colon K63.5 Active 760629191 Problem Hyperlipidemia, unspecified E78.5 Active 00716316 Problem 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 Active 46016256 Problem Hepatic steatosis K76.0 Active 528222136 Problem Diarrhea, unspecified type R19.7 Active 90817718 Problem Mixed obsessional thoughts and acts F42.2 Active 42688711 Problem Cannabis abuse F12.10 Active 59699217 Problem GERD (gastroesophageal reflux disease) K21.9 Active 917863820 Problem Paroxysmal atrial fibrillation I48.0 Active 231125841 Problem Anticoagulant long-term use Z79.01 Active 555023460 Problem Depression F32.9 Active 99626547 Problem Vertigo R42 Active 040058297 Problem Post traumatic stress disorder (PTSD) F43.10 Active 02739434 Problem 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 Active 443546498 Problem Prediabetes R73.03 Active 096783543 ALLERGIES Substance Reaction Event Type Date Status Vicodin Unknown Drug Allergy Nov, Active PredniSONE Unknown Drug Allergy Nov, Active ENCOUNTERS Encounter Location Date Diagnosis [place] [id number] [place] [address] 59009- 0083 Mar, [facility] [id number] [place] [address] 65971- 6245 Mar, Medicare annual wellness visit, initial Z00.00 [place] [address] [address] Mar, [facility] [id number] [place] [id number] Mar, [facility] [id number] [place] [address] 39993- 4420 Mar, [facility] [id number] [place] [address] 92542- 0985 Feb, 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 ; Mixed obsessional thoughts and acts F42.2 and Cannabis abuse F12.10 [facility] [id number] [place] [address] 04845- 6123 Feb, 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 ; Mixed obsessional thoughts and acts F42.2 and Cannabis abuse F12.10 [facility] [id number] [place] [address] 52437- 3020 Feb, GERD with esophagitis K21.0 [facility] [id number] [place] [address] 95708- 3422 Feb, [facility] [id number] [place] [address] 35965- 5055 Nov, Chronic combined systolic (congestive) and diastolic ( congestive) heart failure I50.42 ; Chronic obstructive pulmonary disease, unspecified J44.9 ; Essential hypertension I10 ; Hyperlipidemia, unspecified E78.5 ; Anticoagulant long-term use Z79.01 ; Depression F32.9 ; Paroxysmal atrial fibrillation I48.0 and 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 [place] [address] [address] Oct, Chronic obstructive pulmonary disease, unspecified J44.9 [facility] [id number] [place] [address] 60454- 8447 Sep, 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 ; Mixed obsessional thoughts and acts F42.2 and Cannabis abuse F12.10 [place] [id number] [place] [address] 14863- 3608 Aug, 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 ; Mixed obsessional thoughts and acts F42.2 and Cannabis abuse F12.10 [facility] [id number] [place] [address] 27489- 8930 Aug, 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 and Mixed obsessional thoughts and acts F42.2 [facility] [id number] [place] [address] 11750- 0794 Jul, 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 and Mixed obsessional thoughts and acts F42.2 [facility] [id number] [place] [address] 14027- 1194 Jul, 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 and Mixed obsessional thoughts and acts F42.2 [facility] [facility] [id number] [place] [address] 08949- 9829 Jul, 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 ; Mixed obsessional thoughts and acts F42.2 and Cannabis abuse F12.10 [place] [id number] [place] [address] 28765- 7998 Jun, 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 ; Mixed obsessional thoughts and acts F42.2 and Cannabis abuse F12.10 [facility] [id number] [place] [address] 12572- 1224 Jun, [facility] [facility] [id number] [place], [place] [address] Jun, 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 ; Mixed obsessional thoughts and acts F42.2 and Cannabis abuse F12.10 [facility] [id number] [place] [address] 59933- 8275 May, 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 ; Mixed obsessional thoughts and acts F42.2 and Cannabis abuse F12.10 [facility] [id number] [place] [id number] May, 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 [facility] [id number] [place] [address] 96265- 0595 Mar, [place] [address] 04016- 6454 Mar, Chronic combined systolic (congestive) and diastolic ( congestive) heart failure I50.42 ; Diarrhea, unspecified type R19.7 ; Hepatic steatosis K76.0 and Generalized postprandial abdominal pain R10.84 [place] [id number] [place] [address] 49331- 0055 Jan, Generalized abdominal pain R10.84 [place] [id number] [place] [id number] Jan, Generalized abdominal pain R10.84 ; Generalized postprandial abdominal pain R10.84 ; Diarrhea, unspecified type R19.7 ; Non- intractable vomiting with nausea, unspecified vomiting type R11.2 ; GERD ( gastroesophageal reflux disease) K21.9 ; S/P CABG x 5 Z95.1 ; Prominent abdominal aortic pulsation R09.89 and Other elevated white blood cell count D72.828 [place] [id number] [place] [address] 28356- 1237 Jan, Vertigo R42 [place] [facility] [id number] [place] [address] 80985- 6581 Jan, Other elevated white blood cell count D72.828 [place] [id number] [place] [address] 68604- 3958 Jan, Other elevated white blood cell count D72.828 [place] [id number] [place] [address] 21422- 8935 Jan, Hyperlipidemia, unspecified E78.5 ; Sciatica of left side M54.32 ; Weight loss R63.4 and Night sweats R61 [facility] [address] [id number] December, Dental caries K02.9 and Dental examination Z01.20 [place] [id number] [place] [address] 68945- 9018 Oct, Vertigo R42 ; Nausea R11.0 ; Chronic obstructive pulmonary disease, unspecified J44.9 ; GERD (gastroesophageal reflux disease) K21.9 ; S/P CABG x 5 Z95.1 ; Hyperlipidemia, unspecified E78.5 ; Essential hypertension I10 ; Paroxysmal atrial fibrillation I48.0 and Depression F32.9 [place] [id number] [place] [address] 36346- 9667 Oct, [place] [id number] [place] [address] 72310- 3194 Oct, Hyperlipidemia, unspecified E78.5 [place] [id number] [place] [address] 48246- 0698 Oct, 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 [place] [id number] [place] [address] 13713- 6747 Oct, Vertigo R42 [place] [id number] [place] [address] 70606- 5722 Oct, [place] [id number] [place] [address] 00905- 0379 Sep, [facility] [id number] [place] [address] 94382- 3852 Aug, 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 [facility] [id number] [place] [address] 13163- 7674 05 Jul, 2016 Depression F32.9 ; Generalized anxiety disorder F41.1 and Panic attack F41.0 [facility] [address] [id number] 02 Jul, 2016 Dental examination Z01.20 [place] [address] 56830- 4953 30 Jun, 2016 [place] [id number] [place] [address] 67552- 3513 30 Jun, 2016 Encounter for dental examination and cleaning without abnormal findings Z01.20 [place] [id number] [place] [address] 69014- 2028 15 Jun, 2016 Intractable migraine without aura and with status migrainosus G43.011 ; 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 ; B12 deficiency E53.8 and Depression F32.9 [place] [id number] [place] [address] 62266- 2470 Jun, 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 [place] [id number] [place] [address] 62522- 3672 14 Jun, 2016 Depression F32.9 ; Generalized anxiety disorder F41.1 ; Post traumatic stress disorder (PTSD) F43.10 and Panic attack F41.0 [place] [id number] [place] [address] 00983- 9745 04 Jun, 2016 [facility] [id number] [place] [address] 29546- 8142 Jun, [facility] [address] 55965- 9507 May, [place] [id number] [place] [address] 40531- 7358 May, Elevated glucose R73.09 ; Depression F32.9 ; Hyperlipidemia , unspecified E78.5 ; Prediabetes R73.03 ; B12 deficiency E53.8 ; Vertigo R42 ; Seborrheic keratosis L82.1 ; Chronic obstructive pulmonary disease, unspecified J44.9 and Blurry vision H53.8 [place] [address] 34269- 0794 Apr, [address] 13291- 5140 Jan, Elevated glucose R73.09 ; Anemia D64.9 and Weakness generalized R53.[address] 66650- 0303 Jan, [place] [address] 04240- 1239 Jan, [place] [address] 87538- 3369 December, Sciatica, left side M54.[address] 24220- 2369 Nov, Sciatica, unspecified side M54.30 ; Chronic obstructive pulmonary disease, unspecified J44.9 ; GERD (gastroesophageal reflux disease) K21.9 ; 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 and Pre-syncope R55 [place] [id number] [place] [address] 75784- 8440 Sep, [address] 52772- 9308 Aug, Coumadin toxicity, accidental or unintentional, subsequent encounter T60.4X1D [address] 71023- 5037 Aug, [facility] [address] [place] [address] Aug, Coumadin toxicity, accidental or unintentional, subsequent encounter T60.4X1D ; Atherosclerosis of coronary artery bypass graft(s) without angina pectoris I25.810 and History of stroke Z86.73 [facility] [address] [place] [address] 98339 -8822 Aug, Ear canal abrasion, left, initial encounter S00.412A and Anticoagulant long-term use Z79.01 [facility] [id number] [place] [address] 09114- 8418 Jul, [facility] [id number] [place] [address] 05004- 7985 Jul, Anticoagulant long-term use Z79.01 ; Polyarthralgia M25.50 ; Sciatica, left M54.32 ; Costochondritis M94.0 ; COPD exacerbation J44.1 and Depression F32.9 [facility] [id number] [place] [address] 72468- 8304 May, [facility] [id number] [place] [address] 25365- 8860 Apr, Hyperlipidemia 272.4 ; Coronary artery disease 414.00 ; History of stroke V12.54 ; COPD (chronic obstructive pulmonary disease) 496 ; Hypertension 401.9 ; Sciatica 724.3 ; Encounter for monitoring coumadin therapy V58.83 ; Vertigo as late effect of stroke 438.85 ; Generalized anxiety disorder 300.02 and GERD (gastroesophageal reflux disease) 530.81 IMMUNIZATIONS No Known Immunizations SOCIAL HISTORY Never Assessed REASON FOR VISIT ch f/u. Due for Medicare [id number] PLAN OF CARE Activity Details Follow Up 6 Months Reason:HTN VITAL SIGNS Height 73 in 2017-11-25 Weight 276.1 lbs 2017-11-25 Temperature 98.4 degrees Fahrenheit 2017-11-25 Heart Rate 80 bpm 2017-11-25 Respiratory Rate 16 2017-11-25 BMI 36.42 kg/m2 2017-11-25 Blood pressure systolic 118 mmHg 2017-11-25 Blood pressure diastolic 78 mmHg 2017-11-25 MEDICATIONS Medication Instructions Dosage Frequency Start Date End Date Duration Status Ranexa 1000 MG Orally Twice a day 1 tablet 12h Active Effient 10 MG Orally Once a day 1 tablet 24h Active Meclizine HCl 25 TAKE 1 TABLET BY MOUTH FOUR TIMES DAILY NEEDED FOR VERTIGO 30 Active Duloxetine HCl 60 mg Orally Once a day 2 capsule 24h Active Zetia 10 MG Orally Once a day 1 tablet 24h Active Baclofen 20 TAKE 1 TABLET BY MOUTH THREE TIMES DAILY WITH FOOD OR MILK 30 Active Dicyclomine HCl 20 mg Orally Four times a day as needed 1 tablet Active Promethazine HCl 50 MG Orally every 6 hrs 0.5 tablet as needed for nausea 6h Jun, Active Tylenol Active Metoprolol Succinate ER 50 MG Orally 2 times a day 1 tablet 12h Active Combivent Respimat 20-100 MCG/ACT Inhalation Four times a day 1 puff 6h Active Atorvastatin Calcium 80 MG Orally Once a day 1 tablet 24h 90 days Active Xarelto 20 MG Orally Once a day 1 tablet with food 24h Active Nitrostat 0.4 MG Sublingual q5 min max 3 doses in 15 min as needed for angina 1 tablet Active Isosorbide Mononitrate ER 60 MG Orally Once a day 1 tablet in the morning 24h 90 days Active Praluent 150 MG/ML Subcutaneous every 2 weeks 1 ml Not-Taking Trazodone HCl 50 mg Orally Once a day 1 - 2 tablet at bedtime as needed 24h Active Pantoprazole Sodium 40 mg Orally Once a day 1 tablet 24h Jun, 90 days Active BusPIRone HCl 10 mg Orally Twice a day 2 tablets 12h Active Plavix 75 MG Orally Once a day 1 tablet 24h Active Amlodipine Besylate 5 MG Orally Once a day 1 tablet 24h Active Ventolin HFA 108 (90 Base) MCG/ACT Inhalation every 6 hrs 2 puffs as needed 6h Active RESULTS No Results PROCEDURES Procedure Date Ordered Result [facility] 2017 [facility] VISIT ESTABLISHED PATIENT November 25, 2017 KALIA, ROUTINE* November 25, 2017 INSTRUCTIONS MEDICATIONS ADMINISTERED No Known [...] 02/06/18 Hospitalization History For surgeries Hospitalization History [facility] in his 20's Hospitalization History [facility]- Chest Pain; Hx of CAD 02/07/2018
--- OUTSIDE RECORDS SUMMARY | 2018-07-22 04:38 | XMS REPORT ---
Author Author JUAN CARLOS FRAGA [facility] Address [address] [place] [address] Care Team Providers Care Weatherization Crew Leader Name Role Phone FLAKITOJUAN CARLOS Unavailable PROBLEMS Type Condition ICD9-CM Code ECT24-HS Code Onset Dates Condition Status SNOMED Code Problem History of stroke Z86.73 Active 540449095 Problem S/P CABG x 5 Z95.1 Active 879842138 Problem Anemia D64.9 Active 017879825 Problem Essential hypertension I10 Active 66549480 Problem Sciatica, unspecified side M54.30 Active 12904257 Problem Panic attack F41.0 Active 464827462 Problem Gastroparesis K31.84 Active 407826116 Problem Generalized anxiety disorder F41.1 Active 84115387 Problem Chronic obstructive pulmonary disease, unspecified J44.9 Active 90949677 Problem Intractable migraine without aura and with status migrainosus G43.011 Active 704428788 Problem Other elevated white blood cell count D72.828 Active 307313472 Problem Sciatica of left side M54.32 Active 47603702 Problem GERD with esophagitis K21.0 Active 990412795 Problem 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 Active 93435726 Problem Hyperplastic colonic polyp, unspecified part of colon K63.5 Active 450687886 Problem Hyperlipidemia, unspecified E78.5 Active 22628555 Problem 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 Active 97092569 Problem Hepatic steatosis K76.0 Active 039490585 Problem Diarrhea, unspecified type R19.7 Active 91337758 Problem Mixed obsessional thoughts and acts F42.2 Active 03184136 Problem Cannabis abuse F12.10 Active 47638298 Problem GERD (gastroesophageal reflux disease) K21.9 Active 422660991 Problem Paroxysmal atrial fibrillation I48.0 Active 262598300 Problem Anticoagulant long-term use Z79.01 Active 720544568 Problem Depression F32.9 Active 31249528 Problem Vertigo R42 Active 831499108 Problem Post traumatic stress disorder (PTSD) F43.10 Active 88235195 Problem 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 Active 255041259 Problem Prediabetes R73.03 Active 046756850 ALLERGIES No Information ENCOUNTERS Encounter Location Date Diagnosis [facility] [id number] [id number] Apr, [facility] [address] [address] Mar, [facility] [id number] [place] [address]1057- [address]22 Feb, 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 ; Mixed obsessional thoughts and acts F42.2 and Cannabis abuse F12.10 [address] [place] [id number] [place] [address]16- [address] Feb, 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 ; Mixed obsessional thoughts and acts F42.2 and Cannabis abuse F12.10 [place] [id number] [place] [address] 9[address]11- 7629 Feb, GERD with esophagitis K21.0 [address] [place] [address] 36412- 0728 Feb, [facility] [id number] [place] [address] 61841- 8872 Nov, Chronic combined systolic (congestive) and diastolic ( congestive) heart failure I50.42 ; Chronic obstructive pulmonary disease, unspecified J44.9 ; Essential hypertension I10 ; Hyperlipidemia, unspecified E78.5 ; Anticoagulant long-term use Z79.01 ; Depression F32.9 ; Paroxysmal atrial fibrillation I48.0 and 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2 and Cannabis abuse F12.10 [place] [id number] [place] [address] 99351- 2699 Aug, 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 and Mixed obsessional thoughts and acts F42.2 [place] [id number] [place] [address] 03359- 3459 Jul, 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 and Mixed obsessional thoughts and acts F42.2 [place] [id number] [place] [address] 55822- 1816 Jul, 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 and Mixed obsessional thoughts and acts F42.2 [place] [id number] [place] [address] 51286- 2786 Jul, 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 ; Mixed obsessional thoughts and acts F42.2 and Cannabis abuse F12.10 [address] [place] [address] 88552- 3078 Jun, 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 features F33.2 ; Mixed obsessional thoughts and acts F42.2 and Cannabis abuse F12.10 [address] [address] [place] [address] 14086- 5813 Jun, [place] [id number] [place] [address] 16 Jun, 2017 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 features F33.2 ; Mixed obsessional thoughts and acts F42.2 and Cannabis abuse F12.10 [address] [id number] [place] [address] May, 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 ; Mixed obsessional thoughts and acts F42.2 and Cannabis abuse F12.10 [place] [id number] [place] [address] 75159- 3248 May, Severe recurrent major depression without psychotic features F33.[address] [address] Mar, [address] [address]- [address] Mar, Chronic combined systolic (congestive) and diastolic ( congestive) heart failure I50.42 ; Diarrhea, unspecified type R19.7 ; Hepatic steatosis K76.0 and Generalized postprandial abdominal pain R10.84 [id number] [place] [address] 28917- 9419 Jan, Generalized abdominal pain R10.84 [id number] [place] [address] 78431- 1101 Jan, Generalized abdominal pain R10.84 ; Generalized postprandial abdominal pain R10.84 ; Diarrhea, unspecified type R19.7 ; Non- intractable vomiting with nausea, unspecified vomiting type R11.2 ; GERD ( gastroesophageal reflux disease) K21.9 ; S/P CABG x 5 Z95.1 ; Prominent abdominal aortic pulsation R09.89 and Other elevated white blood cell count D72.828 [place] [id number] [place] [address] 63996- 2435 Jan, Vertigo R42 [id number] [place] [address] 79762- 8927 Jan, Other elevated white blood cell count D72.828 [place] [id number] [place] [address] 84571- 8360 Jan, Other elevated white blood cell count D72.828 [address] [address] [address]- [address] Jan, Hyperlipidemia, unspecified E78.5 ; Sciatica of left side M54.32 ; Weight loss R63.4 and Night sweats R61 [facility] [id number] [place] [id number] December, Dental caries K02.9 and Dental examination Z01.20 [facility] [id number] [place] [address] 46456- 0044 Oct, Vertigo R42 ; Nausea R11.0 ; Chronic obstructive pulmonary disease, unspecified J44.9 ; GERD (gastroesophageal reflux disease) K21.9 ; S/P CABG x 5 Z95.1 ; Hyperlipidemia, unspecified E78.5 ; Essential hypertension I10 ; Paroxysmal atrial fibrillation I48.0 and Depression F32.9 [address] [id number] [place] [address] 82428- 3717 Oct, [address] [address] [address]- 23[address] Oct, Hyperlipidemia, unspecified E78.5 [address] [id number] [place] [address] 45581- 2135 Oct, 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 [place] [id number] [place] [address] 13275- 4644 Oct, Vertigo R42 [place] [id number] [place] [address] 11342- 4875 Oct, [facility] [id number] [place] [address] 20215- 8559 Sep, [facility] [id number] [place] [address] 16469- 0264 Aug, 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 [facility] [id number] [place] [address] 31267- 6855 Jul, Depression F32.9 ; Generalized anxiety disorder F41.1 and Panic attack F41.0 [facility] [address] [place] [id number] 02 Jul, 2016 Dental examination Z01.20 [place] [id number] [place] [address] 30 Jun, [address] [id number] [place] [address] 30 Jun, 2016 Encounter for dental examination and cleaning without abnormal findings Z01.20 [place] [id number] [place] [address] 632237- 1927 15 Jun, 2016 Intractable migraine without aura and with status migrainosus G43.011 ; 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 ; B12 deficiency E53.8 and Depression F32.9 [id number] [place] [address] 51019- 2503 15 Jun, 2016 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 [id number] [place] [address] 58295- 0915 14 Jun, 2016 Depression F32.9 ; Generalized anxiety disorder F41.1 ; Post traumatic stress disorder (PTSD) F43.10 and Panic attack F41.0 [address] [place] [address] 35120- 5408 04 Jun, 2016 [id number] [place] [address] 02135- 5274 Jun, [id number] [place] [address] May, [id number] [place] [address] 48166- 0196 May, Elevated glucose R73.09 ; Depression F32.9 ; Hyperlipidemia , unspecified E78.5 ; Prediabetes R73.03 ; B12 deficiency E53.8 ; Vertigo R42 ; Seborrheic keratosis L82.1 ; Chronic obstructive pulmonary disease, unspecified J44.9 and Blurry vision H53.8 [id number] [place] [address] 57566- 1405 Apr, [address] [address] [address]- [address] Jan, Elevated glucose R73.09 ; Anemia D64.9 and Weakness generalized R53.1 [place] [id number] [place] [address] 27059- 7955 Jan, [address] [address]- [address]40 Jan, [place] [id number] [place] [address] 38831- 3779 December, Sciatica, left side M54.32 [place] [id number] [place] [address] 00099- 3682 Nov, Sciatica, unspecified side M54.30 ; Chronic obstructive pulmonary disease, unspecified J44.9 ; GERD (gastroesophageal reflux disease) K21.9 ; 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 and Pre-syncope R55 [place] [id number] [place] [address] 93019- 9065 Sep, [address] [id number] [place] [address] 45483- 3392 Aug, Coumadin toxicity, accidental or unintentional, subsequent encounter T60.4X1D [address] [id number] [place] [address] 71735- 0870 Aug, [address] [id number] [place] [address] 13121- 2223 Aug, Coumadin toxicity, accidental or unintentional, subsequent encounter T60.4X1D ; Atherosclerosis of coronary artery bypass graft(s) without angina pectoris I25.810 and History of stroke Z86.73 [facility] [address] [place] [address] 99862 -3211 Aug, Ear canal abrasion, left, initial encounter S00.412A and Anticoagulant long-term use Z79.01 [facility] [id number] [address] Jul, [facility] [id number] [address] Jul, Anticoagulant long-term use Z79.01 ; Polyarthralgia M25.50 ; Sciatica, left M54.32 ; Costochondritis M94.0 ; COPD exacerbation J44.1 and Depression F32.9 [facility] [id number] [address] May, [facility] [address] [place] [address] 714020- 4578 Apr, Hyperlipidemia 272.4 ; Coronary artery disease 414.00 ; History of stroke V12.54 ; COPD (chronic obstructive pulmonary disease) 496 ; Hypertension 401.9 ; Sciatica 724.3 ; Encounter for monitoring coumadin therapy V58.83 ; Vertigo as late effect of stroke 438.85 ; Generalized anxiety disorder 300.02 and GERD (gastroesophageal reflux disease) 530.81 IMMUNIZATIONS No Known Immunizations SOCIAL HISTORY Never Assessed REASON FOR VISIT Hospital f/u PLAN OF CARE VITAL SIGNS MEDICATIONS Unknown [...] 02/06/18 Hospitalization History For surgeries Hospitalization History [facility] in his 's Hospitalization History [facility]- Chest Pain; Hx of CAD 02/07/2018
--- OUTSIDE RECORDS SUMMARY | 2018-07-22 04:39 | XMS REPORT ---
Author Author ROJAS JUNIOR [facility] Address [address] [place] [address] Care Team Providers Care Metropolitan Editor Name Role Phone ESTEFANIA XIEY Unavailable PROBLEMS Type Condition ICD9-CM Code FCK49-PT Code Onset Dates Condition Status SNOMED Code Problem History of stroke Z86.73 Active 401208240 Problem S/P CABG x 5 Z95.1 Active 943312250 Problem Anemia D64.9 Active 773071035 Problem Essential hypertension I10 Active 46816301 Problem Panic attack F41.0 Active 120810234 Problem Sciatica, unspecified side M54.30 Active 27220687 Problem Generalized anxiety disorder F41.1 Active 38992493 Problem Chronic obstructive pulmonary disease, unspecified J44.9 Active 55464990 Problem Intractable migraine without aura and with status migrainosus G43.011 Active 361154975 Problem Other elevated white blood cell count D72.828 Active 610654356 Problem Sciatica of left side M54.32 Active 82166705 Problem GERD with esophagitis K21.0 Active 904707739 Problem 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 Active 17876928 Problem Hyperplastic colonic polyp, unspecified part of colon K63.5 Active 238248885 Problem Hyperlipidemia, unspecified E78.5 Active 88708065 Problem 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 Active 60967264 Problem Hepatic steatosis K76.0 Active 174659031 Problem Diarrhea, unspecified type R19.7 Active 07785786 Problem Mixed obsessional thoughts and acts F42.2 Active 50361614 Problem Cannabis abuse F12.10 Active 98227240 Problem GERD (gastroesophageal reflux disease) K21.9 Active 257990145 Problem Paroxysmal atrial fibrillation I48.0 Active 836520267 Problem Anticoagulant long-term use Z79.01 Active 237935692 Problem Depression F32.9 Active 99787206 Problem Vertigo R42 Active 473940402 Problem Post traumatic stress disorder (PTSD) F43.10 Active 95915420 Problem Coronary artery disease of bypass graft of platinum heart with stable 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 Active 303590214 Problem Prediabetes R73.03 Active 604117500 ALLERGIES No Information ENCOUNTERS Encounter Location Date Diagnosis [facility] [address] [address] Mar, Medicare annual wellness visit, initial Z00.00 [facility] [id number] [place] [address]177[address]80 Mar, [facility] [id number] [place] [id number] Mar, [facility] [id number] [place] [address] 99812- 4685 Mar, [facility] [id number] [place] [address] 71696- 8210 Feb, [facility] [id number] [place] [address] 34930- 9080 Feb, [facility] [id number] [place] [address] 57214- 8368 Feb, 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.2 ; Mixed obsessional thoughts and acts F42.2 and Cannabis abuse F12.10 [facility] [facility] [id number] [address] Feb, GERD with esophagitis K21.0 [facility] [id number] [place] [address] 42364- 2047 Feb, [facility] [address] [place] [address] 91496- 2303 Nov, Chronic combined systolic (congestive) and diastolic ( congestive) heart failure I50.42 ; Chronic obstructive pulmonary disease, unspecified J44.9 ; Essential hypertension I10 ; Hyperlipidemia, unspecified E78.5 ; Anticoagulant long-term use Z79.01 ; Depression F32.9 ; Paroxysmal atrial fibrillation I48.0 and Coronary artery disease of bypass graft of platinum heart with stable 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 [place] [address] [address] Oct, Chronic obstructive pulmonary disease, unspecified J44.9 [facility] [facility] [id number] [address] Sep, 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 ; Mixed obsessional thoughts and acts F42.2 and Cannabis abuse F12.10 [facility] [facility] [address] [address] Aug, 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 ; Mixed obsessional thoughts and acts F42.2 and Cannabis abuse F12.10 [facility] [address] [place] [address] 51874- 8024 Aug, 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.2 and Mixed obsessional thoughts and acts F42.2 [facility] [facility] [address] [place] [address] 09033- 3832 Jul, 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.2 and Mixed obsessional thoughts and acts F42.2 [facility] [address] [place] [address] 20124- 1719 Jul, 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.2 and Mixed obsessional thoughts and acts F42.2 [facility] [address] [place] [address] 57360- 1084 Jul, 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.2 ; Mixed obsessional thoughts and acts F42.2 and Cannabis abuse F12.10 [place] [address] [place] [address] 55517- 6789 Jun, 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 features F33.2 ; Mixed obsessional thoughts and acts F42.2 and Cannabis abuse F12.10 [facility] [address] [address] Jun, [place] [address] [place] [address]607- 1971 Jun, Severe recurrent major depression without psychotic features F33.2 ; Mixed obsessional thoughts and acts F42.2 and Cannabis abuse F12.10 [facility] [id number] [place] [address] May, 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.2 ; Mixed obsessional thoughts and acts F42.2 and Cannabis abuse F12.10 [place] [address] [address]- [address] May, 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 features F33.2 [place] [address] 8[address]331- [address] Mar, [place] [address] [address] Mar, Chronic combined systolic (congestive) and diastolic ( congestive) heart failure I50.42 ; Diarrhea, unspecified type R19.7 ; Hepatic steatosis K76.0 and Generalized postprandial abdominal pain R10.84 [facility] [facility] [id number] [place] [address] 58990- 4868 Jan, Generalized abdominal pain R10.84 [facility] [id number] [place] [address] 34630- 2591 Jan, Generalized abdominal pain R10.84 ; Generalized postprandial abdominal pain R10.84 ; Diarrhea, unspecified type R19.7 ; Non- intractable vomiting with nausea, unspecified vomiting type R11.2 ; GERD ( gastroesophageal reflux disease) K21.9 ; S/P CABG x 5 Z95.1 ; Prominent abdominal aortic pulsation R09.89 and Other elevated white blood cell count D72.828 [facility] [id number] [place] [address] 70259- 6820 Jan, Vertigo R42 [place] [address] 96[address]- 2082 Jan, Other elevated white blood cell count D72.828 [place] [address] [place] [address] 87964- 6031 Jan, Other elevated white blood cell count D72.828 [facility] [facility] [id number] [place] [address] 46948- 0206 Jan, Hyperlipidemia, unspecified E78.5 ; Sciatica of left side M54.32 ; Weight loss R63.4 and Night sweats R61 [facility] [id number] [place] [address] [id number] December, Dental caries K02.9 and Dental examination Z01.20 [place] [id number] [place] [address] 77855- 3099 Oct, Vertigo R42 ; Nausea R11.0 ; Chronic obstructive pulmonary disease, unspecified J44.9 ; GERD (gastroesophageal reflux disease) K21.9 ; S/P CABG x 5 Z95.1 ; Hyperlipidemia, unspecified E78.5 ; Essential hypertension I10 ; Paroxysmal atrial fibrillation I48.0 and Depression F32.9 [facility] [id number] [place] [address] 59886- 1961 Oct, [facility] [id number] [place] [address] 26452- 0790 Oct, Hyperlipidemia, unspecified E78.5 [facility] [id number] [place] [address] 38648- 3500 Oct, 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 [facility] [id number] [place] [address] 76849- 4475 Oct, Vertigo R42 [facility] [id number] [place] [address] 20973- 6832 Oct, [facility] [id number] [place] [address] 09346- 4891 Sep, [facility] [id number] [place] [address] 29105- 9540 Aug, 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 [facility] [address] [address] 05 Jul, 2016 Depression F32.9 ; Generalized anxiety disorder F41.1 and Panic attack F41.0 [facility] [id number] [id number] 02 Jul, 2016 Dental examination Z01.20 [facility] [id number] [place] [address] 46276- 6123 30 Jun, 2016 [facility] [id number] [place] [address] 52302- 2566 30 Jun, 2016 Encounter for dental examination and cleaning without abnormal findings Z01.20 [facility] [id number] [place] [address] 26960- 7590 15 Jun, 2016 Intractable migraine without aura and with status migrainosus G43.011 ; Coronary artery disease of bypass graft of platinum heart with stable 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 ; Depression F32.9 and B12 deficiency E53.8 [facility] [address] [place] [address] 48577- 4178 15 Jun, 2016 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 [facility] [address] [place] [address] 76149- 4270 14 Jun, 2016 Depression F32.9 ; Generalized anxiety disorder F41.1 ; Post traumatic stress disorder (PTSD) F43.10 and Panic attack F41.0 [facility] [address] [address]- [address] 04 Jun, 2016 [facility] [address] [place] [address] 90758- 2008 Jun, [facility] [id number] [place] [address] 82431- 1923 May, [facility] [address] [place] [address] 85462- 1605 May, Elevated glucose R73.09 ; Depression F32.9 ; Hyperlipidemia , unspecified E78.5 ; Prediabetes R73.03 ; B12 deficiency E53.8 ; Vertigo R42 ; Seborrheic keratosis L82.1 ; Chronic obstructive pulmonary disease, unspecified J44.9 and Blurry vision H53.8 [facility] [facility] [id number] [place] [address] 75565- 1792 Apr, [address] [address]- [address] Jan, Elevated glucose R73.09 ; Anemia D64.9 and Weakness generalized R53.[address] 86358- [address]60 Jan, [place] [address] 9[address]16- 6203 Jan, [address] [address]- 9[address] December, Sciatica, left side M54.32 [place] [id number] [place] [address] 63754- 3577 Nov, Sciatica, unspecified side M54.30 ; Chronic obstructive pulmonary disease, unspecified J44.9 ; GERD (gastroesophageal reflux disease) K21.9 ; Coronary artery disease of bypass graft of platinum heart with stable 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 and Pre-syncope R55 [place] [id number] [place] [address] 99168- 2253 Sep, [place] [id number] [place] [address] 97408- 8828 Aug, Coumadin toxicity, accidental or unintentional, subsequent encounter T60.4X1D [address] 55554- 5574 Aug, [place] [id number] [place] [address] 20542- 5176 Aug, Coumadin toxicity, accidental or unintentional, subsequent encounter T60.4X1D ; Atherosclerosis of coronary artery bypass graft(s) without angina pectoris I25.810 and History of stroke Z86.73 [facility] [address] [place] [address] 56256 -2930 Aug, Ear canal abrasion, left, initial encounter S00.412A and Anticoagulant long-term use Z79.01 [facility] [id number] [place] [address] 75324- 8134 Jul, [facility] [address] 16871- 4772 Jul, Anticoagulant long-term use Z79.01 ; Polyarthralgia M25.50 ; Sciatica, left M54.32 ; Costochondritis M94.0 ; COPD exacerbation J44.1 and Depression F32.9 [facility] [address] 289[address]- [address]61 May, [facility] [id number] [place] [address] 02945- 4250 Apr, Hyperlipidemia 272.4 ; Coronary artery disease 414.00 ; History of stroke V12.54 ; COPD (chronic obstructive pulmonary disease) 496 ; Hypertension 401.9 ; Sciatica 724.3 ; Encounter for monitoring coumadin therapy V58.83 ; Vertigo as late effect of stroke 438.85 ; Generalized anxiety disorder 300.02 and GERD (gastroesophageal reflux disease) 530.81 IMMUNIZATIONS No Known Immunizations SOCIAL HISTORY Never Assessed REASON FOR VISIT Medication refill request PLAN OF CARE VITAL SIGNS MEDICATIONS Medication Instructions Dosage Frequency Start Date End Date Duration Status Ventolin HFA 108 (90 Base) MCG/ACT Inhalation every 6 hrs 2 puffs as needed 6h Active RESULTS No Results PROCEDURES No Known [...] 02/06/18 Hospitalization History For surgeries Hospitalization History [facility] in his 20's Hospitalization History [facility]- Chest Pain; Hx of CAD 02/07/2018
--- OUTSIDE RECORDS SUMMARY | 2018-07-22 04:39 | XMS REPORT ---
Author Author HALLE SCHNEIDER Organization [facility] Address [address] [place] [address] Care Team Providers Care Consumer Affairs Director Name Role Phone HALLE SCHNEIDER Unavailable PROBLEMS Type Condition ICD9-CM Code FYD73-AU Code Onset Dates Condition Status SNOMED Code Problem History of stroke Z86.73 Active 018931501 Problem S/P CABG x 5 Z95.1 Active 353825314 Problem Anemia D64.9 Active 635188451 Problem Essential hypertension I10 Active 56864011 Problem Panic attack F41.0 Active 547825460 Problem Sciatica, unspecified side M54.30 Active 97305012 Problem Generalized anxiety disorder F41.1 Active 73339901 Problem Chronic obstructive pulmonary disease, unspecified J44.9 Active 17992777 Problem Intractable migraine without aura and with status migrainosus G43.011 Active 977869269 Problem Other elevated white blood cell count D72.828 Active 055376308 Problem Sciatica of left side M54.32 Active 29857454 Problem GERD with esophagitis K21.0 Active 474093129 Problem 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 Active 75115026 Problem Hyperplastic colonic polyp, unspecified part of colon K63.5 Active 457593524 Problem Hyperlipidemia, unspecified E78.5 Active 92462308 Problem 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 Active 79293454 Problem Hepatic steatosis K76.0 Active 096498862 Problem Diarrhea, unspecified type R19.7 Active 30058276 Problem Mixed obsessional thoughts and acts F42.2 Active 42329934 Problem Cannabis abuse F12.10 Active 70410692 Problem GERD (gastroesophageal reflux disease) K21.9 Active 300402364 Problem Paroxysmal atrial fibrillation I48.0 Active 478122107 Problem Anticoagulant long-term use Z79.01 Active 672287767 Problem Depression F32.9 Active 78927375 Problem Vertigo R42 Active 795339252 Problem Post traumatic stress disorder (PTSD) F43.10 Active 16520482 Problem 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 Active 345749011 Problem Prediabetes R73.03 Active 457944205 ALLERGIES No Information ENCOUNTERS Encounter Location Date Diagnosis [facility] [address] [address] Mar, [facility] [id number] [place] [address]- [address]102 Mar, [facility] [id number] [id number] Mar, [facility] [id number] [place] [address]118- 2060 Mar, [facility] [id number] [place] [address] 66088- 3598 Feb, [facility] [id number] [place] [address] 91103- 4200 Feb, [facility] [id number] [place] [address] 35669- 7229 Feb, 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 ; Mixed obsessional thoughts and acts F42.2 and Cannabis abuse F12.10 [facility] [address] [address] Feb, GERD with esophagitis K21.0 [facility] [id number] [place] [address] 51221- 1596 Feb, [facility] [id number] [place] [address] 10401- 1600 Nov, Chronic combined systolic (congestive) and diastolic ( congestive) heart failure I50.42 ; Chronic obstructive pulmonary disease, unspecified J44.9 ; Essential hypertension I10 ; Hyperlipidemia, unspecified E78.5 ; Anticoagulant long-term use Z79.01 ; Depression F32.9 ; Paroxysmal atrial fibrillation I48.0 and 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 [facility] [address] [address] Oct, Chronic obstructive pulmonary disease, unspecified J44.9 [facility] [id number] [place] [address] 54424- 8063 Sep, Severe recurrent major depression without psychotic features F33.2 ; Mixed obsessional thoughts and acts F42.2 and Cannabis abuse F12.10 [facility] [id number] [place] [address] 03182- 1806 Aug, Severe recurrent major depression without psychotic features F33.2 ; Mixed obsessional thoughts and acts F42.2 and Cannabis abuse F12.10 [facility] [id number] [place] [address] 85956- 0814 Aug, 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 and Mixed obsessional thoughts and acts F42.2 [facility] [id number] [place] [address] 78850- 5776 Jul, 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 and Mixed obsessional thoughts and acts F42.2 [facility] [id number] [place] [address] 77416- 1586 Jul, 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 and Mixed obsessional thoughts and acts F42.2 [facility] [id number] [place] [address] 63283- 1775 Jul, Severe recurrent major depression without psychotic features F33.2 ; Mixed obsessional thoughts and acts F42.2 and Cannabis abuse F12.10 [facility] [id number] [place] [address] 91289- 5068 Jun, Severe recurrent major depression without psychotic features F33.2 ; Mixed obsessional thoughts and acts F42.2 and Cannabis abuse F12.10 [facility] [id number] [place] [address] 56839- 1899 Jun, [facility] [id number] [place] [address] 67845- 3383 Jun, 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 ; Mixed obsessional thoughts and acts F42.2 and Cannabis abuse F12.10 [facility] [id number] [place] [address] May, Severe recurrent major depression without psychotic features F33.2 ; Mixed obsessional thoughts and acts F42.2 and Cannabis abuse F12.10 [facility] [address] [id number] May, Severe recurrent major depression without psychotic features F33.2 [facility] [id number] [place] [address] Mar, [facility] [address] [address]- [address] Mar, Chronic combined systolic (congestive) and diastolic ( congestive) heart failure I50.42 ; Diarrhea, unspecified type R19.7 ; Hepatic steatosis K76.0 and Generalized postprandial abdominal pain R10.84 [facility] [id number] [place] [address] 65229- 2960 Jan, Generalized abdominal pain R10.84 [facility] [address] [id number]- [address] Jan, Generalized abdominal pain R10.84 ; Generalized postprandial abdominal pain R10.84 ; Diarrhea, unspecified type R19.7 ; Non- intractable vomiting with nausea, unspecified vomiting type R11.2 ; GERD ( gastroesophageal reflux disease) K21.9 ; S/P CABG x 5 Z95.1 ; Prominent abdominal aortic pulsation R09.89 and Other elevated white blood cell count D72.828 [facility] [id number] [place] [address] 37078- 8826 Jan, Vertigo R42 [address] [address]- [address] Jan, Other elevated white blood cell count D72.828 [facility] [address] [address]- [address]64 Jan, Other elevated white blood cell count D72.828 [facility] [id number] [place] [address] 39899- 4356 Jan, Hyperlipidemia, unspecified E78.5 ; Sciatica of left side M54.32 ; Weight loss R63.4 and Night sweats R61 [facility] [id number] [place] [id number] December, Dental caries K02.9 and Dental examination Z01.20 [facility] [id number] [place] [address] 81982- 1279 Oct, Vertigo R42 ; Nausea R11.0 ; Chronic obstructive pulmonary disease, unspecified J44.9 ; GERD (gastroesophageal reflux disease) K21.9 ; S/P CABG x 5 Z95.1 ; Hyperlipidemia, unspecified E78.5 ; Essential hypertension I10 ; Paroxysmal atrial fibrillation I48.0 and Depression F32.9 [facility] [id number] [place] [address] 25979- 9871 Oct, [facility] [id number] [place] [address] 95524- 3056 Oct, Hyperlipidemia, unspecified E78.5 [facility] [id number] [place] [address] 58168- 8070 Oct, 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 [facility] [id number] [place] [address] 11155- 2621 Oct, Vertigo R42 [facility] [id number] [place] [address] 05401- 5774 Oct, [facility] [id number] [place] [address] 06225- 0493 Sep, [facility] [id number] [place] [address] 17835- 0385 Aug, 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 [facility] [address] [address] 05 Jul, 2016 Depression F32.9 ; Generalized anxiety disorder F41.1 and Panic attack F41.0 [facility] [address] [id number] 02 Jul, 2016 Dental examination Z01.20 [facility] [id number] [place] [address] 14313- 9625 30 Jun, 2016 [facility] [id number] [place] [address] 81654- 8230 30 Jun, 2016 Encounter for dental examination and cleaning without abnormal findings Z01.20 [facility] [id number] [place] [address] 53198- 3184 15 Jun, 2016 Intractable migraine without aura and with status migrainosus G43.011 ; 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 ; B12 deficiency E53.8 and Depression F32.9 [facility] [id number] [place] [address] 59690- 4381 15 Jun, 2016 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 [facility] [id number] [place] [address] 49681- 7038 14 Jun, 2016 Depression F32.9 ; Generalized anxiety disorder F41.1 ; Post traumatic stress disorder (PTSD) F43.10 and Panic attack F41.0 [facility] [id number] [place] [address] 11583- 3471 04 Jun, 2016 [facility] [id number] [place] [address] 13105- 2406 Jun, [facility] [id number] [place] [address] 97380- 1472 May, [facility] [id number] [place] [address] 72562- 6727 May, Elevated glucose R73.09 ; Depression F32.9 ; Hyperlipidemia , unspecified E78.5 ; Prediabetes R73.03 ; B12 deficiency E53.8 ; Vertigo R42 ; Seborrheic keratosis L82.1 ; Chronic obstructive pulmonary disease, unspecified J44.9 and Blurry vision H53.8 [facility] [id number] [place] [address] 83124- 9875 Apr, [facility] [address] 52867- 4458 Jan, Elevated glucose R73.09 ; Anemia D64.9 and Weakness generalized R53.1 [facility] [facility] [address] 82111- 7914 Jan, [facility] [address] 59248- 3362 Jan, [facility] [address] 89901- 6702 December, Sciatica, left side M54.[address] 7[address]41- [address] Nov, Sciatica, unspecified side M54.30 ; Chronic obstructive pulmonary disease, unspecified J44.9 ; GERD (gastroesophageal reflux disease) K21.9 ; 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 and Pre-syncope R55 [place] [id number] [place] [address] 95657- 7756 Sep, [facility] [id number] [place] [address] 63263- 7931 Aug, Coumadin toxicity, accidental or unintentional, subsequent encounter T60.4X1D [facility] [address] 37052- 6930 Aug, [place] [id number] [place] [address] 92995- 7144 Aug, Coumadin toxicity, accidental or unintentional, subsequent encounter T60.4X1D ; Atherosclerosis of coronary artery bypass graft(s) without angina pectoris I25.810 and History of stroke Z86.73 [facility] [id number] [place] [address] 85974 -8738 Aug, Ear canal abrasion, left, initial encounter S00.412A and Anticoagulant long-term use Z79.01 [facility] [id number] [place] [address] 16807- 5762 Jul, [facility] [id number] [place] [address] 84377- 0814 Jul, Anticoagulant long-term use Z79.01 ; Polyarthralgia M25.50 ; Sciatica, left M54.32 ; Costochondritis M94.0 ; COPD exacerbation J44.1 and Depression F32.9 [facility] [id number] [place] [address] 09943- 5352 May, [facility] [address] 9[address]96- 4797 Apr, Hyperlipidemia 272.4 ; Coronary artery disease 414.00 ; History of stroke V12.54 ; COPD (chronic obstructive pulmonary disease) 496 ; Hypertension 401.9 ; Sciatica 724.3 ; Encounter for monitoring coumadin therapy V58.83 ; Vertigo as late effect of stroke 438.85 ; Generalized anxiety disorder 300.02 and GERD (gastroesophageal reflux disease) 530.81 IMMUNIZATIONS No Known Immunizations SOCIAL HISTORY Never Assessed REASON FOR VISIT f/u, Depression and anxeity PLAN OF CARE Activity Details Follow Up Next available Reason:depression and anxiety VITAL SIGNS MEDICATIONS Unknown Medications RESULTS No Results PROCEDURES Procedure Date Ordered Result Body Site [facility] VISIT MENTAL HEALTH ESTAB PT Aug 14, 2017 Psychotherapy, patient &/family, 45 minutes, established patient Aug 14, 2017 visit needs to be added to the same day medical Aug 14, 2017 INSTRUCTIONS MEDICATIONS ADMINISTERED No [...] 02/06/18 Hospitalization History For surgeries Hospitalization History [facility] in his 20's Hospitalization History [facility]- Chest Pain; Hx of CAD 02/07/2018
--- OUTSIDE RECORDS SUMMARY | 2018-07-22 04:49 | XMS REPORT | Continuity of Care Document ---
Author Author [facility] Organization [facility] Address Unknown Phone Unavailable Allergies Active Description Code Type Severity Reaction Onset Reported/Identified Relationship to Patient Clinical Status Yes bee venom (honey bee) [id number] Drug Allergy Unknown N/A 04/23/2015 Yes prednisone [id number] Drug Allergy Moderate RASH 02/25/2017 Yes hydrocodone [id number] Drug Allergy Unknown N/A 02/25/2017 Yes venom-honey bee [id number] Drug Allergy Unknown N/A 02/25/2017 Medications There [...] PIMENTEL MD Ot 414.01 CORONARY ATHEROSCLEROSIS OF [place] CORON 04/27/2015 JAMEEL PIMENTEL MD Ot 414.2 [...] INI 08/31/2015 ERIC WALL APRN Ot Y92.009 [facility] [address] IN [facility] (PRIVATE 08/31/2015 ERIC WALL APRN Ot Y99.8 OTHER EXTERNAL CAUSE STATUS 08/31/2015 ERIC WALL APRN Ot Z79.01 PRISON (CURRENT) USE OF ANTICOAGULANT 08/31/2015 ERIC WALL APRN Ot Z86.73 PRSNL HX OF TIA (TIA), AND CEREB INFRC W 09/10/2015 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 Ot G47.33 OBSTRUCTIVE SLEEP APNEA (ADULT) (PEDIATR [...] CCDS Ot I25.118 ATHSCL HEART DISEASE OF [place] COR ART W 02/29/2016 ANA LUISA NOVA FACC, JT FACP CCDS Ot I25.82 CHRONIC TOTAL OCCLUSION OF CORONARY [place] 02/29/2016 ANA LUISA NOVA FACC, JT FACP CCDS Ot I48.91 UNSPECIFIED ATRIAL FIBRILLATION 02/29/2016 ANA LUISA NOVA FACC, JT FACP CCDS Ot Z68.38 BODY MASS INDEX (BMI) 38.0-38.9, ADULT 02/29/2016 ANA LUISA NOVA FACC, ALI FACP CCDS Ot Z79.01 CUSTOM TAILOR APPRENTICE (CURRENT) USE OF ANTICOAGULANT 02/29/2016 ANA LUISA NOVA FACC, ALI FACP CCDS Ot Z79.899 OTHER CUSTOM TAILOR APPRENTICE (CURRENT) DRUG THERAPY 02/29/2016 ANA LUISA NOVA [...] CCDS Ot I25.118 ATHSCL HEART DISEASE OF [place] COR ART W 03/28/2016 ANA LUISA NOVA FACC, ALI FACP CCDS Ot I25.82 CHRONIC TOTAL OCCLUSION OF CORONARY [place] 03/28/2016 ANA LUISA NOVA FACC, ALI FACP CCDS Ot I48.91 UNSPECIFIED ATRIAL FIBRILLATION 03/28/2016 ANA LUISA NOVA FACC, ALI FACP CCDS Ot Z68.38 BODY MASS INDEX (BMI) 38.0-38.9, ADULT 03/28/2016 ANA LUISA NOVA FACC, ALI FACP CCDS Ot Z79.01 PRISON (CURRENT) USE OF ANTICOAGULANT 03/28/2016 ANA LUISA NOVA FACC, ALI FACP CCDS Ot Z79.899 OTHER PRISON (CURRENT) DRUG THERAPY 03/28/2016 ANA LUISA NOVA [...] CCDS Ot I25.118 ATHSCL HEART DISEASE OF [place]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 ART W 04/13/2016 JT OROSCO MD, FACC FACP CCDS Ot I25.82 CHRONIC TOTAL OCCLUSION OF CORONARY [place] 04/13/2016 JT OROSCO MD, FACC FACP CCDS Ot I48.91 UNSPECIFIED ATRIAL FIBRILLATION 04/13/2016 JT OROSCO MD, FACC FACP CCDS Ot Z68.38 BODY MASS INDEX (BMI) 38.0-38.9, ADULT 04/13/2016 JT OROSCO MD, FACC FACP CCDS Ot Z79.01 PRISON (CURRENT) USE OF ANTICOAGULANT 04/13/2016 JT OROSCO MD, FACC FACP CCDS Ot Z79.899 OTHER PRISON (CURRENT) DRUG THERAPY 04/13/2016 JT OROSCO MD, [...] CCDS Ot I25.118 ATHSCL HEART DISEASE OF [place]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 ART W 04/16/2016 JT OROSCO MD, FACC FACP CCDS Ot I25.82 CHRONIC TOTAL OCCLUSION OF CORONARY [place] 04/16/2016 ANA LUISA NOVA FACC, JT FACP CCDS Ot I48.91 UNSPECIFIED ATRIAL FIBRILLATION 04/16/2016 ANA LUISA NOVA FACC, JT FACP CCDS Ot Z68.38 BODY MASS INDEX (BMI) 38.0-38.9, ADULT 04/16/2016 JT OROSCO MD, FACC FACP CCDS Ot Z79.01 PRISON (CURRENT) USE OF ANTICOAGULANT 04/16/2016 JT OROSCO MD, FACC FACP CCDS Ot Z79.899 OTHER PRISON (CURRENT) DRUG THERAPY 04/16/2016 JT OROSCO MD, FACC FACP CCDS Ot Z82.49 FAMILY HX OF ISCHEM HEART DIS AND OTH DI 04/16/2016 JT OROSCO MD, FACC FACP CCDS Ot Z86.73 PRSNL HX OF TIA (TIA), AND CEREB INFRC W 04/16/2016 JT OROSCO MD, FACC FACP CCDS Ot Z95.1 PRESENCE OF AORTOCORONARY BYPASS GRAFT 06/18/2016 ERIC WALL APRN Ot I25.10 ATHSCL HEART DISEASE OF [place] CORONARY 06/18/2016 ERIC WALL APRN Ot I48.2 CHRONIC ATRIAL FIBRILLATION 06/18/2016 ERIC WALL APRN Ot J44.9 CHRONIC OBSTRUCTIVE PULMONARY DISEASE, U 06/18/2016 ERIC WALL APRN Ot R00.2 PALPITATIONS 06/18/2016 ERIC WALL APRN Ot R07.89 OTHER CHEST PAIN 06/18/2016 ERIC WALL APRN Ot R51 HEADACHE 06/18/2016 ERIC WALL APRN Ot Z79.01 CUSTOM TAILOR APPRENTICE (CURRENT) USE OF ANTICOAGULANT 06/18/2016 ERIC WALL APRN Ot Z79.02 CUSTOM TAILOR APPRENTICE (CURRENT) USE OF ANTITHROMBOTI 06/18/2016 ERIC WALL APRN Ot Z79.899 OTHER PRISON (CURRENT) DRUG THERAPY 06/18/2016 ERIC WALL APRN [...] MD Ot I25.10 ATHSCL HEART DISEASE OF [place] CORONARY 02/01/2017 SHA HOLDER MD Ot I48.91 UNSPECIFIED ATRIAL FIBRILLATION 02/01/2017 SHA HOLDER MD Ot J44.9 CHRONIC OBSTRUCTIVE PULMONARY DISEASE, U 02/01/2017 SHA HOLDER MD Ot R10.32 LEFT LOWER QUADRANT PAIN 02/01/2017 SHA HOLDER MD, Ot R10.84 GENERALIZED ABDOMINAL PAIN 02/01/2017 SHA HOLDER MD, Ot Z79.01 PRISON (CURRENT) USE OF ANTICOAGULANT 02/01/2017 SHA HOLDER [...] MD, Ot I25.10 ATHSCL HEART DISEASE OF [place] CORONARY 02/25/2017 MANOJ BAUMANN MD Ot I48.91 UNSPECIFIED ATRIAL FIBRILLATION 02/25/2017 MANOJ BAUMANN MD Ot J21.9 ACUTE BRONCHIOLITIS, UNSPECIFIED 02/25/2017 MANOJ BAUMANN MD, Ot K25.9 GASTRIC ULCER, UNSP ACUTE OR CHRONIC, 02/25/2017 MANOJ BAUMANN MD Ot K26.9 DUODENAL ULCER, UNSP ACUTE OR CHRONIC 02/25/2017 MANOJ BAUMANN MD Ot K63.5 POLYP OF COLON 02/25/2017 MANOJ BAUMANN MD Ot Z79.899 OTHER PRISON (CURRENT) DRUG THERAPY 02/25/2017 MANOJ BAUMANN MD, [...] MD Ot I25.10 ATHSCL HEART DISEASE OF [place] CORONARY 03/29/2017 JUNIOR XIE MD Ot N20.0 CALCULUS OF KIDNEY 03/29/2017 JUNIOR XIE MD Ot R10.84 GENERALIZED ABDOMINAL PAIN 03/29/2017 JUNIOR XIE MD Ot R19.7 DIARRHEA, UNSPECIFIED 04/03/2017 JUNIOR XIE MD Ot I25.10 ATHSCL HEART DISEASE OF [place] CORONARY 04/03/2017 JUNIOR XIE MD Ot N20.0 CALCULUS OF KIDNEY 04/03/2017 JUNIOR XIE MD Ot R10.84 GENERALIZED ABDOMINAL PAIN 04/03/2017 JUNIOR XIE MD Ot R19.7 DIARRHEA, UNSPECIFIED 04/11/2017 JUNIOR XIE MD Ot R09.89 OTH SYMPTOMS AND SIGNS INVOLVING THE CIR 04/11/2017 JUNIOR XIE MD Ot Z95.1 PRESENCE OF AORTOCORONARY BYPASS GRAFT 04/19/2017 JUNIOR XIE MD Ot I25.10 ATHSCL HEART DISEASE OF [place] CORONARY 04/19/2017 JUNIOR XIE MD Ot N20.0 [...] DO Ot I25.10 ATHSCL HEART DISEASE OF [place] CORONARY 07/03/2017 KATHY JOHNSON DO Ot I48.91 [...] 2 DIABETES MELLITUS WITHOUT COMPLIC 07/11/2017 KATHY JHONSON DO Ot E78.00 PURE HYPERCHOLESTEROLEMIA, UNSPECIFIED 07/11/2017 KATHY JOHNSON DO Ot F12.10 CANNABIS ABUSE, UNCOMPLICATED 07/11/2017 ALEX JIMENEZ KATHY K Ot F32.9 MAJOR DEPRESSIVE DISORDER, SINGLE EPISOD 07/11/2017 ALEX DO KATHY K Ot F41.9 ANXIETY DISORDER, UNSPECIFIED 07/11/2017 ALEX JIMENEZ KATHY Mehdi Ot G47.30 SLEEP APNEA, UNSPECIFIED 07/11/2017 ALEX JIMENEZ KATHY K Ot I10 ESSENTIAL (PRIMARY) HYPERTENSION 07/11/2017 ALEX JIMENEZ KATHY K Ot I25.10 ATHSCL HEART DISEASE OF [place] CORONARY 07/11/2017 ALEX DOKATHY Ot I48.91 UNSPECIFIED [...] Mehdi Ot I25.10 ATHSCL HEART DISEASE OF [place] CORONARY 07/12/2017 ALEX JIMENEZ KATHY Mehdi Ot [...] Molina Ot I25.10 ATHSCL HEART DISEASE OF [place] CORONARY 09/25/2017 ROJAS NOVA, JUNIOR Molina Ot N20.0 CALCULUS OF KIDNEY 09/25/2017 ROJAS NOVA, JUNIOR Molina Ot R10.84 GENERALIZED ABDOMINAL PAIN 09/25/2017 ROJAS NOVA, JUNIOR Molina Ot R19.7 DIARRHEA, UNSPECIFIED 09/27/2017 JUNIOR XIE MD Ot I25.10 ATHSCL HEART DISEASE OF [place] CORONARY 09/27/2017 JUNIOR XIE MD Ot N20.0 [...] MD Ot I25.10 ATHSCL HEART DISEASE OF [place] CORONARY 09/27/2017 JUNIOR XIE MD Ot N20.0 [...] MD Ot I25.10 ATHSCL HEART DISEASE OF [place] CORONARY 09/30/2017 JUNIOR XIE MD Ot N20.0 CALCULUS OF KIDNEY 09/30/2017 JUNIOR XIE MD Ot R10.84 GENERALIZED ABDOMINAL PAIN 09/30/2017 JUNIOR XIE MD Ot R19.7 DIARRHEA, UNSPECIFIED 10/05/2017 JUNIOR XIE MD Ot I25.10 ATHSCL HEART DISEASE OF [place] CORONARY 10/05/2017 JUNIOR XIE MD Ot N20.0 CALCULUS OF KIDNEY 10/05/2017 ROJAS MD, JUNIOR N Ot R10.84 GENERALIZED ABDOMINAL PAIN 10/05/2017 JUNIOR XIE MD Ot R19.7 DIARRHEA, UNSPECIFIED 11/02/2017 JUNIOR XIE MD Ot I25.10 ATHSCL HEART DISEASE OF [place] CORONARY 11/02/2017 JUNIOR XIE MD Ot N20.0 [...] HDZ Ot I25.10 ATHSCL HEART DISEASE OF [place] CORONARY 01/24/2018 ASUNCION HDZ Ot Z68.38 BODY MASS INDEX (BMI) 38.0-38.9, ADULT 01/24/2018 ASUNCION HDZ Ot Z79.899 OTHER PRISON (CURRENT) DRUG THERAPY 01/29/2018 JAMEEL PIMENTEL MD Ot E66.9 OBESITY, UNSPECIFIED 01/29/2018 JAMEEL PIMENTEL MD Ot E78.2 MIXED HYPERLIPIDEMIA 01/29/2018 JAMEEL PIMENTEL MD J Ot I10 ESSENTIAL (PRIMARY) HYPERTENSION 01/29/2018 JAMEEL PIMENTEL MD Ot I25.10 ATHSCL HEART DISEASE OF [place] CORONARY 01/29/2018 JAMEEL PIMENTEL MD Ot R07.9 CHEST PAIN, UNSPECIFIED 01/29/2018 JAMEEL PIMENTEL MD Ot E66.9 OBESITY, UNSPECIFIED 01/29/2018 JAMEEL PIMENTEL MD Ot E78.2 MIXED HYPERLIPIDEMIA 01/29/2018 JAMEEL PIMENTEL MD Ot I10 ESSENTIAL (PRIMARY) HYPERTENSION 01/29/2018 JAMEEL PIMENTEL MD Ot I25.10 ATHSCL HEART DISEASE OF [place] CORONARY 01/29/2018 JAMEEL PIMENTEL MD Ot R07.9 CHEST PAIN, UNSPECIFIED 02/07/2018 Marcia LYMAN MD Ot E66.9 OBESITY, UNSPECIFIED 02/07/2018 Marcia LYMAN MD, Ot E78.5 HYPERLIPIDEMIA, UNSPECIFIED 02/07/2018 Marcia LYMAN MD, Ot G47.33 OBSTRUCTIVE SLEEP APNEA (ADULT) (PEDIATR 02/07/2018 Marcia LYMAN MD Ot I10 ESSENTIAL (PRIMARY) HYPERTENSION 02/07/2018 Marcia LYMAN MD Ot I25.10 ATHSCL HEART DISEASE OF [place] CORONARY 02/07/2018 Marcia LYMAN MD, Ot I25.82 CHRONIC TOTAL OCCLUSION OF CORONARY [place] 02/07/2018 Marcia LYMAN MD, Ot I48.0 PAROXYSMAL ATRIAL FIBRILLATION 02/07/2018 Marcia LYMAN MD, Ot T82.855A STENOSIS OF CORONARY ARTERY STENT, INITI 02/07/2018 Marcia LYMAN MD Ot Z68.35 BODY MASS INDEX (BMI) 35.0-35.9, ADULT 02/07/2018 Marcia LYMAN MD Ot Z79.01 CUSTOM TAILOR APPRENTICE (CURRENT) USE OF ANTICOAGULANT 02/07/2018 Marcia LYMAN MD Ot Z79.899 OTHER PRISON (CURRENT) DRUG THERAPY 02/07/2018 Marcia LYMAN MD Ot Z86.73 PRSNL HX OF TIA (TIA), AND CEREB INFRC W 02/07/2018 Marcia LYMAN MD Ot Z95.1 PRESENCE OF AORTOCORONARY BYPASS GRAFT 02/07/2018 Marcia LYMAN MD Ot Z95.5 PRESENCE OF CORONARY ANGIOPLASTY IMPLANT 02/07/2018 Marcia LYMAN MD Ot E66.9 OBESITY, UNSPECIFIED 02/07/2018 Marcia LYMAN MD, Ot E78.5 HYPERLIPIDEMIA, UNSPECIFIED 02/07/2018 Marcia LYMAN MD, Ot G47.33 OBSTRUCTIVE SLEEP APNEA (ADULT) (PEDIATR 02/07/2018 Marcia LYMAN MD Ot I10 ESSENTIAL (PRIMARY) HYPERTENSION 02/07/2018 Marcia LYMAN MD Ot I25.10 ATHSCL HEART DISEASE OF [place] CORONARY 02/07/2018 Marcia LYMAN MD Ot I25.82 CHRONIC TOTAL OCCLUSION OF CORONARY [place] 02/07/2018 Marcia LYMAN MD, Ot I48.0 PAROXYSMAL ATRIAL FIBRILLATION 02/07/2018 Marcia LYMAN MD, Ot T82.855A STENOSIS OF CORONARY ARTERY STENT, INITI 02/07/2018 Marcia LYMAN MD, Ot Z68.35 BODY MASS INDEX (BMI) 35.0-35.9, ADULT 02/07/2018 Marcia LYMAN MD, Ot Z79.01 PRISON (CURRENT) USE OF ANTICOAGULANT 02/07/2018 Marcia LYMAN MD, Ot Z79.899 OTHER PRISON (CURRENT) DRUG THERAPY 02/07/2018 Marcia LYMAN MD, Ot Z86.73 PRSNL HX OF TIA (TIA), AND CEREB INFRC W 02/07/2018 Marcia LYMAN MD, Ot Z95.1 PRESENCE OF AORTOCORONARY BYPASS GRAFT 02/07/2018 Marcia LYMAN MD Ot Z95.5 PRESENCE OF CORONARY ANGIOPLASTY IMPLANT 02/08/2018 Marcia LYMAN MD Ot E11.9 TYPE 2 DIABETES MELLITUS WITHOUT COMPLIC 02/08/2018 Marcia LYMAN MD Ot E66.01 MORBID (SEVERE) OBESITY DUE TO EXCESS CA 02/08/2018 Marcia LYMAN MD Ot E66.9 OBESITY, UNSPECIFIED 02/08/2018 Marcia LYMAN MD Ot E78.00 PURE HYPERCHOLESTEROLEMIA, UNSPECIFIED 02/08/2018 Marcia LYMAN MD Ot E78.5 HYPERLIPIDEMIA, UNSPECIFIED 02/08/2018 Marcia LYMAN MD Ot G47.33 OBSTRUCTIVE SLEEP APNEA (ADULT) (PEDIATR 02/08/2018 Marcia LYMAN MD Ot I10 ESSENTIAL (PRIMARY) HYPERTENSION 02/08/2018 Marcia LYMAN MD Ot I25.10 ATHSCL HEART DISEASE OF [place] CORONARY 02/08/2018 Marcia LYMAN MD Ot I25.82 CHRONIC TOTAL OCCLUSION OF CORONARY [place] 02/08/2018 Marcia LYMAN MD, Ot I48.0 PAROXYSMAL ATRIAL FIBRILLATION 02/08/2018 Marcia LYMAN MD Ot 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 02/08/2018 Marcia LYMAN MD, Ot I73.9 PERIPHERAL VASCULAR DISEASE, UNSPECIFIED 02/08/2018 Marcia LYMAN MD, Ot J44.9 CHRONIC OBSTRUCTIVE PULMONARY DISEASE, U 02/08/2018 Marcia LYMAN MD, Ot K21.9 GASTRO-ESOPHAGEAL REFLUX DISEASE WITHOUT 02/08/2018 Marcia LYMAN MD, Ot R06.02 SHORTNESS OF BREATH 02/08/2018 Marcia LYMAN MD, Ot R07.89 OTHER CHEST PAIN 02/08/2018 Marcia LYMAN MD, Ot R42 DIZZINESS AND GIDDINESS 02/08/2018 Marcia LYMAN MD, Ot T82.855A STENOSIS OF CORONARY ARTERY STENT, INITI 02/08/2018 Marcia LYMAN MD Ot Z68.35 BODY MASS INDEX (BMI) 35.0-35.9, ADULT 02/08/2018 Marcia LYMAN MD, Ot Z68.36 BODY MASS INDEX (BMI) 36.0-36.9, ADULT 02/08/2018 Marcia LYMAN MD, Ot Z79.01 PRISON (CURRENT) USE OF ANTICOAGULANT 02/08/2018 Marcia LYMAN MD, Ot Z79.02 PRISON (CURRENT) USE OF ANTITHROMBOTI 02/08/2018 Marcia LYMAN MD, Ot Z79.899 OTHER CUSTOM TAILOR APPRENTICE (CURRENT) DRUG THERAPY 02/08/2018 Marcia LYMAN MD, Ot Z86.73 PRSNL HX OF TIA (TIA), AND CEREB INFRC W 02/08/2018 Marcia LYMAN MD, Ot Z87.891 PERSONAL HISTORY OF NICOTINE DEPENDENCE 02/08/2018 Marcia LYMAN MD Ot Z95.1 PRESENCE OF AORTOCORONARY BYPASS GRAFT 02/08/2018 Marcia LYMAN MD, Ot Z95.5 PRESENCE OF CORONARY ANGIOPLASTY IMPLANT 02/08/2018 Marcia LYMAN MD Ot E11.9 TYPE 2 DIABETES MELLITUS WITHOUT COMPLIC 02/08/2018 Marcia LYMAN MD Ot E66.01 MORBID (SEVERE) OBESITY DUE TO EXCESS CA 02/08/2018 Marcia LYMAN MD Ot E78.00 PURE HYPERCHOLESTEROLEMIA, UNSPECIFIED 02/08/2018 Marcia LYMAN MD Ot G47.33 OBSTRUCTIVE SLEEP APNEA (ADULT) (PEDIATR 02/08/2018 Marcia LYMAN MD, Ot I10 ESSENTIAL (PRIMARY) HYPERTENSION 02/08/2018 Marcia LYMAN MD, Ot I25.10 ATHSCL HEART DISEASE OF [place] CORONARY 02/08/2018 Marcia LYMAN MD Ot I48.0 PAROXYSMAL ATRIAL FIBRILLATION 02/08/2018 Marcia LYMAN MD Ot 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 02/08/2018 Marcia LYMAN MD Ot I73.9 PERIPHERAL VASCULAR DISEASE, UNSPECIFIED 02/08/2018 Marcia LYMAN MD, Ot J44.9 CHRONIC OBSTRUCTIVE PULMONARY DISEASE, U 02/08/2018 Marcia LYMAN MD, Ot K21.9 GASTRO-ESOPHAGEAL REFLUX DISEASE WITHOUT 02/08/2018 Marcia LYMAN MD Ot R06.02 SHORTNESS OF BREATH 02/08/2018 Marcia LYMAN MD Ot R07.89 OTHER CHEST PAIN 02/08/2018 Marcia LYMAN MD Ot R42 DIZZINESS AND GIDDINESS 02/08/2018 Marcia LYMAN MD Ot Z68.36 BODY MASS INDEX (BMI) 36.0-36.9, ADULT 02/08/2018 Marcia LYMAN MD Ot Z79.01 PRISON (CURRENT) USE OF ANTICOAGULANT 02/08/2018 Marcia LYMAN MD, Ot Z79.02 CUSTOM TAILOR APPRENTICE (CURRENT) USE OF ANTITHROMBOTI 02/08/2018 Marcia LYMAN MD, Ot Z79.899 OTHER CUSTOM TAILOR APPRENTICE (CURRENT) DRUG THERAPY 02/08/2018 Marcia LYMAN MD, Ot Z87.891 PERSONAL HISTORY OF NICOTINE DEPENDENCE 02/08/2018 ESMER NOVA Marcia PARK Ot Z95.1 PRESENCE OF AORTOCORONARY BYPASS GRAFT 02/08/2018 Marcia LYMAN MD Ot Z95.5 PRESENCE OF CORONARY ANGIOPLASTY IMPLANT 02/10/2018 ASUNCION HDZ Ot D72.820 LYMPHOCYTOSIS (SYMPTOMATIC) 02/10/2018 ASUNCION HDZ Jesse Ot E66.9 OBESITY, UNSPECIFIED 02/10/2018 ASUNCION HDZ Jesse Ot E78.5 HYPERLIPIDEMIA, UNSPECIFIED 02/10/2018 ASUNCION HDZ Jesse Ot I10 ESSENTIAL (PRIMARY) HYPERTENSION 02/10/2018 ASUNCION HDZ Jesse Ot I25.10 ATHSCL HEART DISEASE OF [place] CORONARY 02/10/2018 ASUNCION HDZ Jesse Ot Z68.38 BODY MASS INDEX (BMI) 38.0-38.9, ADULT 02/10/2018 ASUNCION HDZ Jesse Ot Z79.899 OTHER PRISON (CURRENT) DRUG THERAPY 02/18/2018 JAMEEL PIMENTEL MD Ot E66.9 OBESITY, UNSPECIFIED 02/18/2018 JAMEEL PIMENTEL MD Ot E78.2 MIXED HYPERLIPIDEMIA 02/18/2018 JAMEEL PIMENTEL MD Ot I10 ESSENTIAL (PRIMARY) HYPERTENSION 02/18/2018 JAMEEL PIMENTEL MD Ot I25.10 ATHSCL HEART DISEASE OF [place] CORONARY 02/18/2018 JAMEEL PIMENTEL MD Ot R07.9 CHEST PAIN, UNSPECIFIED 02/18/2018 JAMEEL PIMENTEL MD Ot E66.9 OBESITY, UNSPECIFIED 02/18/2018 JAMEEL PIMENTEL MD Ot E78.2 MIXED HYPERLIPIDEMIA 02/18/2018 JAMEEL PIMENTEL MD Ot I10 ESSENTIAL (PRIMARY) HYPERTENSION 02/18/2018 JAMEEL PIMENTEL MD Ot I25.10 ATHSCL HEART DISEASE OF [place] CORONARY 02/18/2018 JAMEEL PIMENTEL MD Ot R07.9 CHEST PAIN, UNSPECIFIED 02/28/2018 JAMEEL PIMENTEL MD Ot I20.9 ANGINA PECTORIS, UNSPECIFIED 02/28/2018 JAMEEL PIMENTEL MD Ot Z95.5 PRESENCE OF CORONARY ANGIOPLASTY IMPLANT 02/28/2018 JUNIOR XIE MD Ot R09.89 OTH SYMPTOMS AND SIGNS INVOLVING THE CIR 02/28/2018 JUNIOR XIE MD, Ot Z95.1 PRESENCE OF AORTOCORONARY BYPASS GRAFT 02/28/2018 JUNIOR XIE MD, Ot I25.10 ATHSCL HEART DISEASE OF [place] CORONARY 02/28/2018 JUNIOR XIE MD, Ot N20.0 CALCULUS OF KIDNEY 02/28/2018 JUNIOR XIE MD Ot R10.84 GENERALIZED ABDOMINAL PAIN 02/28/2018 JUNIOR XIE MD, Ot R19.7 DIARRHEA, UNSPECIFIED 02/28/2018 ASUNCION HDZ Ot D72.820 LYMPHOCYTOSIS (SYMPTOMATIC) 02/28/2018 ASUNCION HDZ Ot E66.9 OBESITY, UNSPECIFIED 02/28/2018 ASUNCION HDZ Ot E78.5 HYPERLIPIDEMIA, UNSPECIFIED 02/28/2018 ASUNCION HDZ Ot I10 ESSENTIAL (PRIMARY) HYPERTENSION 02/28/2018 ASUNCION HDZ Ot I25.10 ATHSCL HEART DISEASE OF [place] CORONARY 02/28/2018 ASUNCION HDZ Ot Z68.38 BODY MASS INDEX (BMI) 38.0-38.9, ADULT 02/28/2018 ASUNCION HDZ Ot Z79.899 OTHER PRISON (CURRENT) DRUG THERAPY 02/28/2018 JAMEEL PIMENTEL MD Ot E66.9 OBESITY, UNSPECIFIED 02/28/2018 JAMEEL PIMENTEL MD Ot E78.2 MIXED HYPERLIPIDEMIA 02/28/2018 JAMEEL PIMENTEL MD Ot I10 ESSENTIAL (PRIMARY) HYPERTENSION 02/28/2018 JAMEEL PIMENTEL MD Ot I25.10 ATHSCL HEART DISEASE OF [place] CORONARY 02/28/2018 JAMEEL PIMENTEL MD Ot R07.9 CHEST PAIN, UNSPECIFIED 02/28/2018 JAMEEL PIMENTEL MD Ot E66.9 OBESITY, UNSPECIFIED 02/28/2018 JAMEEL PIMENTEL MD Ot E78.2 MIXED HYPERLIPIDEMIA 02/28/2018 JAMEEL PIMENTEL MD Ot I10 ESSENTIAL (PRIMARY) HYPERTENSION 02/28/2018 JAMEEL PIMENTEL MD Ot I25.10 ATHSCL HEART DISEASE OF [place] CORONARY 02/28/2018 JAMEEL PIMENTEL MD Ot R07.9 CHEST PAIN, UNSPECIFIED 03/03/2018 DELMAN DO, CHATO B Ot K29.50 UNSPECIFIED CHRONIC GASTRITIS WITHOUT BL 03/04/2018 JAMEEL PIMENTEL MD Ot E66.9 OBESITY, UNSPECIFIED 03/04/2018 JAMEEL PIMENTEL MD Ot E78.2 MIXED HYPERLIPIDEMIA 03/04/2018 JAMEEL PIMENTEL MD Ot I10 ESSENTIAL (PRIMARY) HYPERTENSION 03/04/2018 JAMEEL PIMENTEL MD Ot I25.10 ATHSCL HEART DISEASE OF [place] CORONARY 03/04/2018 JAMEEL PIMENTEL MD Ot R07.9 CHEST PAIN, UNSPECIFIED 03/04/2018 JAMEEL PIMENTEL MD Ot E66.9 OBESITY, UNSPECIFIED 03/04/2018 JAMEEL PIMENTEL MD Ot E78.2 MIXED HYPERLIPIDEMIA 03/04/2018 JAMEEL PIMENTEL MD Ot I10 ESSENTIAL (PRIMARY) HYPERTENSION 03/04/2018 JAMEEL PIMENTEL MD Ot I25.10 ATHSCL HEART DISEASE OF [place] CORONARY 03/04/2018 JAMEEL PIMENTEL MD Ot R07.9 CHEST PAIN, UNSPECIFIED 03/21/2018 CHATO JOHNSON DO B Ot K29.50 UNSPECIFIED CHRONIC GASTRITIS WITHOUT BL 03/25/2018 Marcia LYMAN MD Ot Z48.812 ENCNTR FOR SURGICAL AFTCR FOLLOWING SURG 03/25/2018 Marcia LYMAN MD Ot Z95.5 PRESENCE OF CORONARY ANGIOPLASTY IMPLANT 04/02/2018 ASUNCION HDZ Ot D72.820 LYMPHOCYTOSIS (SYMPTOMATIC) 04/02/2018 ASUNCION HDZ Ot E66.9 OBESITY, UNSPECIFIED 04/02/2018 ASUNCION HDZ Ot E78.5 HYPERLIPIDEMIA, UNSPECIFIED 04/02/2018 ASUNCION HDZ Ot I10 ESSENTIAL (PRIMARY) HYPERTENSION 04/02/2018 ASUNCION HDZ Ot I25.10 ATHSCL HEART DISEASE OF [place] CORONARY 04/02/2018 ASUNCION HDZ Ot Z68.38 BODY MASS INDEX (BMI) 38.0-38.9, ADULT 04/02/2018 ASUNCION HDZ Ot Z79.899 OTHER CUSTOM TAILOR APPRENTICE (CURRENT) DRUG THERAPY 04/04/2018 Marcia LYMAN MD Ot Z48.812 ENCNTR FOR SURGICAL AFTCR FOLLOWING SURG 04/04/2018 Marcia LYMAN MD, Ot Z95.5 PRESENCE OF CORONARY ANGIOPLASTY IMPLANT 04/04/2018 CHATO JOHNSON DO Ot K29.50 UNSPECIFIED CHRONIC GASTRITIS WITHOUT BL 05/29/2018 Marcia LYMAN MD, Ot Z48.812 ENCNTR FOR SURGICAL AFTCR FOLLOWING SURG 05/29/2018 Marcia LYMAN MD, Ot Z95.5 PRESENCE OF CORONARY ANGIOPLASTY IMPLANT 05/30/2018 Marcia LYMAN MD, Ot Z48.812 ENCNTR FOR SURGICAL AFTCR FOLLOWING SURG 05/30/2018 Marcia LYMAN MD, Ot Z95.5 PRESENCE OF CORONARY ANGIOPLASTY IMPLANT 05/30/2018 Marcia LYMAN MD, Ot Z48.812 ENCNTR FOR SURGICAL AFTCR FOLLOWING SURG 05/30/2018 Marcia LYMAN MD, Ot Z95.5 PRESENCE OF CORONARY ANGIOPLASTY [...] detection in urine sediment by light microscopy 10-25 NRG Urine drug screening test - 07/03/17 [...] Status Pt. Type Provider Facility Loc./Unit Complaint [id number] 05/30/2018 11:00:00 05/30/2018 23:59:59 CLS Preadmit Marcia LYMAN MD Via [facility] CR PTCA [id number] 03/28/2018 11:16:00 05/29/2018 00:01:00 DIS Outpatient Marcia LYMAN MD [facility] CR PTCA [id number] 04/03/2018 00:11:00 04/03/2018 23:59:59 CLS Preadmit ASUNCION HDZ N [facility] ONC [id number] 01/24/2018 09:51:00 04/02/2018 00:01:00 DIS Outpatient ASUCNION HDZ Via [facility] ONC [id number] 02/28/2018 06:38:00 02/28/2018 23:59:59 CLS Outpatient CHATO JOHNSON DO [facility] CARD CHRONIC GASTRITIS W/O BLEEDING [id number] 02/07/2018 21:25:00 02/08/2018 12:42:00 DIS Outpatient Marcia LYMAN MD [facility] ICU CHEST PAIN;HX OF CAD [id number] 02/06/2018 11:05:00 02/07/2018 10:45:00 DIS Outpatient Marcia LYMAN MD [facility] CATH ABNORMAL STRESS TEST,CHD ,CAD,HTN [id number] 01/29/2018 08:38:00 01/29/2018 23:59:59 CLS Outpatient JAMEEL PIMENTEL MD [facility] CARD CAD,CHEST PAIN SYNDROME, HTN [id number] 01/28/2018 10:49:00 01/28/2018 23:59:59 CLS Outpatient JAMEEL PIMENTEL MD [facility] CARD CAD,CHEST PAIN SYNDROME, HTN [id number] 07/03/2017 18:26:00 07/03/2017 20:34:00 DIS Emergency KATHY JOHNSON DO [facility] ER SUICIDAL [id number] 05/13/2017 10:15:00 05/13/2017 23:59:59 CLS Preadmit JAMEEL PIMENTEL MD [facility] CARD CAD I25.10 [id number] 05/07/2017 10:00:00 05/07/2017 23:59:59 CLS Preadmit JAMEEL PIMENTEL MD [facility] CARD I25.10 CAD [id number] 03/28/2017 14:04:00 03/28/2017 23:59:59 CLS Outpatient JUNIOR XIE MD [facility] RAD R19.7,R10.84 [id number] 02/25/2017 09:28:00 02/25/2017 12:45:00 DIS Outpatient MANOJ BAUMANN MD [facility] ENDO GERD [id number] 02/22/2017 05:56:00 02/22/2017 09:06:00 DIS Outpatient MANOJ BAUMANN MD [facility] PREOP COLONOSCOPY [id number] 02/07/2017 09:45:00 02/07/2017 23:59:59 CLS Preadmit JUNIOR XIE MD [facility] RAD GERNERALIZED ABD PAIN R10.84 [id number] 02/07/2017 08:58:00 02/07/2017 23:59:59 CLS Outpatient JUNIOR XIE MD [facility] RAD PROMINENT ABDOMINAL AORTIC PULSATION R06.89 [id number] 02/01/2017 18:24:00 02/01/2017 20:56:00 DIS Emergency SHA HOLDER MD [facility] ER STOMACH PAIN/ LIGHTHEADEDNESS [id number] 11/14/2016 11:00:00 11/14/2016 23:59:59 CLS Preadmit JAMEEL PIMENTEL MD [facility] CR STENT [id number] 09/21/2016 11:15:00 11/13/2016 00:01:00 DIS Outpatient JAMEEL PIMENTEL MD [facility] CR STENT [id number] 06/18/2016 14:42:00 06/18/2016 16:16:00 DIS Emergency ERIC WALL APRN [facility] ER PALPITATIONS NAUSEA [id number] 02/25/2016 23:11:00 02/29/2016 14:40:00 DIS Outpatient ANA LUISA NOVA FACCJT FACP CCDS [facility] CATH CHEST PAIN [id number] 12/14/2015 10:00:00 12/14/2015 23:59:59 CLS Preadmit JAMEEL PIMENTEL MD [facility] CR PTCA [id number];STABLE ANGINA [id number] 09/26/2015 11:59:00 12/13/2015 00:01:00 DIS Outpatient JAMEEL PIMENTEL MD [facility] CR PTCA [id number];STABLE ANGINA [id number] 09/09/2015 19:56:00 09/10/2015 06:40:00 DIS Outpatient 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 [facility] SLEEP NARGIS [id number] 09/09/2015 12:03:00 09/09/2015 23:59:59 CLS Outpatient JAMEEL PIMENTEL MD [facility] CR PTCA [id number];STABLE ANGINA [id number] 08/31/2015 15:57:00 08/31/2015 17:10:00 DIS Emergency ERIC WALL 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 COUNSELOR [facility] ER L EAR BLEEDING [id number] 07/24/2015 21:15:00 07/25/2015 06:25:00 DIS Outpatient JOSE GUADALUPE KENNEDY [facility] SLEEP ARRHYTHMIAS , HX STROKE, OBSTRUCTIVE SLEEP APNEA [id number] 07/08/2015 10:07:00 07/08/2015 11:55:00 DIS Emergency DEONTE TUCKER MD [facility] ER COUGH/GAINING WEIGHT [id number] 04/25/2015 14:12:00 04/27/2015 11:55:00 DIS Inpatient JAMEEL PIMENTEL MD [facility] CSD CHEST PAIN,CAD,CHRONIC LEUKOCYTOSIS [id number] 10/19/2016 08:37:00 Document Registration [id number] 01/04/2017 08:06:00 Document Registration [id number] 06/20/2016 10:05:00 Document Registration [id number] 01/28/2017 14:09:00 Document Registration [id number] 02/05/2017 11:07:00 Document Registration [id number] 07/02/2018 11:40:00 07/02/2018 23:59:59 CLS Outpatient ROJAS NOVA, JUNIOR [facility]
[2018-07-22] MEDS ORDERED: LIDOCAINE/EPI 2% 1:100,00 (XYLOCAINE) 20 ML VIAL INJ ONE (05:00)
[2018-07-22] MEDS ORDERED: LIDOCAINE/EPI 2% 1:200,00 (XYLOCAINE) 10 ML VIAL INJ ONE (05:00)
[2018-07-22 05:22] LABS: BASOPHILS # (AUTO) 0.1 10^3/uL (0.0-0.1); BASOPHILS % (AUTO) 0 % (0-10); EOSINOPHILS # (AUTO) 0.4 10^3/uL (0.0-0.3); EOSINOPHILS % (AUTO) 3 % (0-10); HEMATOCRIT 38 % (40-54); HEMOGLOBIN 13.4 G/DL (13.3-17.7); LYMPHOCYTES # (AUTO) 4.4 X 10^3 (1.0-4.0); LYMPHOCYTES % (AUTO) 35 % (12-44); MEAN CORPUSCULAR HEMOGLOBIN 29 PG (25-34); MEAN CORPUSCULAR HGB CONC 35 G/DL (32-36); MEAN CORPUSCULAR VOLUME 82 FL (80-99); MEAN PLATELET VOLUME 9.4 FL (7.4-10.4); MONOCYTES # (AUTO) 0.7 X 10^3 (0.0-1.0); MONOCYTES % (AUTO) 6 % (0-12); NEUTROPHILS # (AUTO) 6.9 X 10^3 (1.8-7.8); NEUTROPHILS % (AUTO) 56 % (42-75); PLATELET COUNT 294 10^3/uL (130-400); RED BLOOD COUNT 4.65 10^6/uL (4.35-5.85); RED CELL DISTRIBUTION WIDTH 13.3 % (10.0-14.5); WHITE BLOOD COUNT 12.4 10^3/uL (4.3-11.0)
[2018-07-22 05:45] LABS: ALANINE AMINOTRANSFERASE 14 U/L (0-55); ALBUMIN 4.3 GM/DL (3.2-4.5); ALKALINE PHOSPHATASE 82 U/L (40-136); BILIRUBIN,TOTAL 0.4 MG/DL (0.1-1.0); BUN/CREATININE RATIO 8; CARBON DIOXIDE 23 MMOL/L (21-32); CHLORIDE 103 MMOL/L (98-107); CREATININE SERUM 0.89 MG/DL (0.60-1.30); GFR ESTIMATED > 60; GLUCOSE 144 MG/DL (70-105); SALICYLATE < 5.0 MG/DL (5.0-20.0); SODIUM 137 MMOL/L (135-145); TOTAL PROTEIN 7.6 GM/DL (6.4-8.2)
--- NOTE | 2018-07-22 05:47 | ED Psychosocial ---
General Chief Complaint: Suicidal Ideation Risk Stated Complaint: LACERATION Nursing Triage Note: AMBULATORY TO ED HOLDING PRESSURE TO LEFT ARM, SOAKED IN BLOODY TISSUES. 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 PT ALSO STATES HE TAKES 2 BLOOD THINNERS, EFFIENT AND XARELTO. Source: patient Exam Limitations: no limitations History of Present Illness Date Seen by Provider: Jul 22, 2018 Time Seen by Provider: 04:45 Initial Comments This 48-year-old gentleman presents to the emergency room with a 2 cm laceration on the left forearm. He initially stated that this was an accidental wound up with his significant other who accompanies him states that it was self-inflicted. When questioned further about this, patient does admit to self inflicting the wound with a pocket knife. He admits to having frequent suicidal ideation "every day". He has devised multiple plans for suicide and states hanging is his most common thought. He states he wanted to see how bad it would hurt to cut his arm today because he did not have rope available this morning. He states a long-term struggle with depression and suicidal thinking, but this event was precipitated by an argument with his girlfriend. He has had one prior admission in his 20s for depression. He denies any drug or alcohol use. The patient presented to the ER tonight because his wound would not stop bleeding. He takes Effient and Xarelto. Allergies and Home Medications Allergies Coded Allergies: prednisone (Verified Allergy, Intermediate, RASH, 04/23/15) hydrocodone (Verified Allergy, Unknown, 04/23/15) venom-honey bee (Verified Allergy, Unknown, 04/23/15) Home Medications Albuterol Sulfate Unknown Strength Hfa.aer.ad, 2 PUFF IH Q4H PRN for SHORTNESS OF BREATH, (Reported) Albuterol/Ipratropium 4 Gm Aero, 2 PUFF IH BID, (Reported) Amlodipine Besylate 5 Mg Tablet, 5 MG PO DAILY Prescribed by: JAMEEL PIMENTEL on 04/27/15 1038 Atorvastatin Calcium 80 Mg Tablet, 80 MG PO HS, (Reported) Baclofen 20 Mg Tablet, 20 MG PO TID PRN for SPASMS, (Reported) Buspirone HCl 10 Mg Tablet, 20 MG PO DAILY, (Reported) TAKE 2 (10 MG) TABLETS ONCE DAILY FOR A TOTAL OF 20 MG Clopidogrel Bisulfate 75 Mg Tablet, 75 MG PO DAILY Prescribed by: JOSE GUADALUPE SCHNEIDER on 02/29/16 1300 Duloxetine HCl 60 Mg Capsule.dr, 120 MG PO DAILY, (Reported) TAKE 2 (60 MG) TABLETS ONCE DAILY FOR A TOTAL OF 120 MG DOSE Ezetimibe 10 Mg Tablet, 10 MG PO DAILY, (Reported) Isosorbide Mononitrate 60 Mg Tab, 60 MG PO DAILY@0630 Prescribed by: JOSE GUADALUPE SCHNEIDER on 02/29/16 1300 Mag Hydrox/Al Hydrox/Simeth 30 Ml Oral.susp, 30 ML PO QID PRN for INDIGESTION Prescribed by: JOSE JAIN on 02/08/18 1251 Meclizine HCl 25 Mg Tablet, 25 MG PO QID PRN for DIZZINESS, (Reported) Metoprolol Succinate 50 Mg Tab.er.24h, 50 MG PO Q12H, (Reported) Nitroglycerin 0.4 Mg Tab.subl, 0.4 MG SL for CHEST PAIN, (Reported) Pantoprazole Sodium 40 Mg Tablet.dr, 40 MG PO DAILY, (Reported) Prasugrel HCl 10 Mg Tablet, 10 MG PO DAILY, (Reported) Promethazine HCl 25 Mg Tablet, 25 MG PO Q4H PRN for NAUSEA/VOMITING, (Reported) Ranolazine 1,000 Mg Tab.er.12h, 1,000 MG PO BID, (Reported) Rifaximin 550 Mg Tablet, 550 MG PO DAILY, (Reported) Rivaroxaban 20 Mg Tablet, 20 MG PO DAILY, (Reported) Patient Home Medication List Home Medication List Reviewed: Yes Review of Systems Constitutional: no symptoms reported EENTM: no symptoms reported Respiratory: no symptoms reported Cardiovascular: no symptoms reported Gastrointestinal: no symptoms reported Genitourinary: no symptoms reported Musculoskeletal: no symptoms reported Skin: see HPI Psychiatric/Neurological: See HPI Past Ulgxhzm-Urweio-Vvbuwb Hx Past Med/Social Hx: Reviewed Nursing Past Med/Soc Hx Patient Social History Alcohol Use: Denies Use Number of Drinks Today: AA Alcohol Beverage of Choice: Beer Recreational Drug Use: No (DENIES) Drug of Choice: MARIJUANA Smoking Status: Former Smoker Type Used: Cigarettes Former Smoker, Quit: Feb 07, 2000 2nd Hand Smoke Exposure: No Recent Foreign Travel: No Contact w/Someone Who Travel: No Recent Infectious Disease Expo: No Recent Hopitalizations: No Physical Abuse: No Sexual Abuse: No Mistreated: No Fear: No Immunizations Up To Date Tetanus Booster (TDap): Unknown PED Vaccines UTD: No Seasonal Allergies Seasonal Allergies: Yes Past Medical History Surgeries: Yes Cardiac, CABG, Coronary Stent, Orthopedic Respiratory: Yes Chronic Bronchitis, Sleep Apnea, COPD Currently Using CPAP: No (OWNS CPAP, NONCOMPLIANT ) Currently Using BIPAP: No Cardiac: Yes (A FLUTTER; 5-VESSEL CABG, MULTIPLE CATHS/ANGIOPLASTIES/STENTS X 6 ; CHF) Atrial Fibrillation, Coronary Artery Disease, High Cholesterol, Hypertension, Peripheral Vascular Neurological: Yes (CVA--CEREBELLAR WITH SOME PROBLEMS WITH BALANCE AND SHORT TERM MEMORY ) Stroke, TIA Reproductive Disorders: No Sexually Transmitted Disease: No HIV/AIDS: No Genitourinary: No Gastrointestinal: Yes Gastroesophageal Reflux, Chronic Diarrhea, Ulcer Musculoskeletal: Yes Chronic Back Pain, Spasms Endocrine: Yes (Borderline DM) Diabetes, Non-Insulin dep HEENT: Yes Eye Injury, Double Vision Loss of Vision: Right Hearing Impairment: Denies Cancer: No Psychosocial: Yes (OCD; INTENTIONAL OVERDOSE/SUICIDE ATTEMPT 06/2017) Sleep Difficulties, Anxiety, Suicide Attempts, Depression Integumentary: No Blood Disorders: Yes (B12 deficiency anemia) Adverse Reaction/Blood Tranf: No (N/A) Family Medical History Reviewed Nursing Family Hx Brain cancer 19 FATHER Congestive heart failure 19 MOTHER Coronary artery disease 19 FATHER Diabetes mellitus 19 MOTHER Heart attack 19 FATHER 19 MOTHER Hypertension 19 FATHER 19 MOTHER Lung cancer 19 FATHER Heart Disease, Cancer, Diabetes Physical Exam Vital Signs - First Documented 07/22/18 07/22/18 04:35 07:15 Temp 97.3 Pulse 87 Resp 19 B/P (MAP) 146/99 (115) Pulse Ox 98 Capillary Refill : Less Than 3 Seconds Height, Weight, BMI Height: 6'1.00" Weight: 280lbs. 0oz. 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, no motor/sensory deficits, alert, oriented x 3, other (depressed mood) Appearance/Memory: appropriate appearance, appropriate insight Behavior/Eye Contact: cooperative, normal speech, avoids eye contact Thoughts/Hallucinations: other (suicidal ideation) Skin: normal color, warm/dry Procedures/Interventions Wound Location: Upper Extremities (left forearm) Wound Length (cm): 2 Wound's Depth, Shape: sub Q Wound Explored: clean Irrigated w/ Saline (ccs): 500 Betadine Prep?: Yes Anesthesia: Lidocaine w/ Epi Volume Anesthetic (ccs): 6 Suture: Ethlion Suture Size: 4-0 Number of Sutures: 2 Sterile Dressing Applied?: Yes Progress Wound was anesthetized with lidocaine with epinephrine and was irrigated with saline. A [id number] suture was placed over the area of greatest bleeding. A second suture was placed in an interrupted fashion. Hemostasis was achieved. Progress/Results/Core Measures Results/Orders Lab Results Laboratory Tests Test 07/22/18 05:13 07/22/18 05:45 Range/Units White Blood Count 12.4 H 4.3-11.0 10^3/uL Red Blood Count 4.65 4.35-5.85 10^6/uL Hemoglobin 13.4 13.3-17.7 G/DL Hematocrit 38 L 40-54 % Mean Corpuscular Volume 82 80-99 FL Mean Corpuscular Hemoglobin 29 25-34 PG Mean Corpuscular Hemoglobin Concent 35 32-36 G/DL Red Cell Distribution Width 13.3 10.0-14.5 % Platelet Count 294 130-400 10^3/uL Mean Platelet Volume 9.4 7.4-10.4 FL Neutrophils (%) (Auto) 56 42-75 % Lymphocytes (%) (Auto) 35 12-44 % Monocytes (%) (Auto) 6 0-12 % Eosinophils (%) (Auto) 3 0-10 % Basophils (%) (Auto) 0 0-10 % Neutrophils # (Auto) 6.9 1.8-7.8 X 10^3 Lymphocytes # (Auto) 4.4 H 1.0-4.0 X 10^3 Monocytes # (Auto) 0.7 0.0-1.0 X 10^3 Eosinophils # (Auto) 0.4 H 0.0-0.3 10^3/uL Basophils # (Auto) 0.1 0.0-0.1 10^3/uL Sodium Level 137 135-145 MMOL/L Potassium Level 4.0 3.6-5.0 MMOL/L Chloride Level 103 98-107 MMOL/L Carbon Dioxide Level 23 21-32 MMOL/L Anion Gap 11 5-14 MMOL/L Blood Urea Nitrogen 7 7-18 MG/DL Creatinine 0.89 0.60-1.30 MG/DL Estimat Glomerular Filtration Rate > 60 BUN/Creatinine Ratio 8 Glucose Level 144 H 70-105 MG/DL Calcium Level 9.0 8.5-10.1 MG/DL Corrected Calcium 8.8 8.5-10.1 MG/DL Total Bilirubin 0.4 0.1-1.0 MG/DL Aspartate Amino Transf (AST/SGOT) 12 5-34 U/L Alanine Aminotransferase (ALT/SGPT) 14 0-55 U/L Alkaline Phosphatase 82 40-136 U/L Total Protein 7.6 6.4-8.2 GM/DL Albumin 4.3 3.2-4.5 GM/DL TSH Sod Testing 1.95 0.35-4.94 UIU/ML Salicylates Level < 5.0 L 5.0-20.0 MG/DL Acetaminophen Level < 10 L 10-30 UG/ML Serum Alcohol < 10 <10 MG/DL Urine Opiates Screen NEGATIVE NEGATIVE Urine Oxycodone Screen NEGATIVE NEGATIVE Urine Methadone Screen NEGATIVE NEGATIVE Urine Propoxyphene Screen NEGATIVE NEGATIVE Urine Barbiturates Screen NEGATIVE NEGATIVE Ur Tricyclic Antidepressants Screen NEGATIVE NEGATIVE Urine Phencyclidine Screen NEGATIVE NEGATIVE Urine Amphetamines Screen NEGATIVE NEGATIVE Urine Methamphetamines Screen NEGATIVE NEGATIVE Urine Benzodiazepines Screen NEGATIVE NEGATIVE Urine Cocaine Screen NEGATIVE NEGATIVE Urine Cannabinoids Screen POSITIVE H NEGATIVE My Orders Orders - RAIN DELGADO MD Acetaminophen (07/22/18 04:47) Alcohol (07/22/18 04:47) Cbc With Automated Diff (07/22/18 04:47) Comprehensive Metabolic Panel (07/22/18 04:47) Drug Screen Stat (Urine) (07/22/18 04:47) Salicylate (07/22/18 04:47) Thyroid Analyzer (07/22/18 04:47) Lidocaine/Epi Mpf 2% 1:200,000 (Xylocain (07/22/18 05:00) Lidocaine/Epi 2% 1:100,000 (Xylocaine/Ep (07/22/18 05:00) Ekg Tracing (07/22/18 05:39) Dipht,Pertuss(Acell),Tet Adult (Boostrix (07/22/18 06:00) Vital Signs/I&O Blood Pressure Mean: 115 Progress Progress Note #1: Time: 06:13 Progress Note Wound was repaired. A Boostrix tetanus booster will be administered. After much thought and urging from his significant other, patient agrees to voluntary admission to a psychiatric facility. Acceptance is pending. Progress Note #2: Time: 06:39 Progress Note Patient was accepted to [facility] by Dr. Bronson. Kia Jorge has graciously agreed to transport the patient. Initial ECG Impression Date: Jul 22, 2018 Initial ECG Impression Time: 05:57 Initial ECG Rate: 78 Initial ECG Rhythm: Normal Sinus Comment Sinus rhythm with no ST elevation. Nonspecific ST changes in the lateral leads. These ST changes are similar to prior. No abnormal intervals or axis deviation. Departure Impression Primary Impression: Suicidal ideation Additional Impression: Laceration of left forearm Qualified Codes: S51.812A - Laceration without foreign body of left forearm, initial encounter Disposition: 02 XFER SHT-TRM HOSP Condition: Stable Transfer Time Spoke to Accepting Phy: 06:40 Transfer Facility: [facility] Method of Transfer: Kia Patel Departure-Patient Inst. Decision time for Depature: 07:17 Referrals: JUNIOR XIE MD (PCP/Family) Primary Care Physician RAIN DELGADO MD Jul 22, 2018 05:47
[2018-07-22 05:50] LABS: ACETAMINOPHEN < 10 UG/ML (10-30)
[2018-07-22] MEDS ORDERED: TETANUS,DIPTH,PERTUSS P/F (BOOSTRIX) 0.5 ML VIAL IM ONE (06:00)
[2018-07-22 06:04] LABS: AMPHETAMINE SCREEN, URINE NEGATIVE (NEGATIVE); BARBITURATE SCREEN URINE NEGATIVE (NEGATIVE); BENZODIAZEPINES SCREEN URINE NEGATIVE (NEGATIVE); CANNABINOID SCREEN, URINE POSITIVE (NEGATIVE); COCAINE SCREEN URINE NEGATIVE (NEGATIVE); METHADONE STAT NEGATIVE (NEGATIVE); METHAMPHETAMINE SCREEN URINE S NEGATIVE (NEGATIVE); OPIATE SCREEN URINE NEGATIVE (NEGATIVE); OXYCODONE STAT NEGATIVE (NEGATIVE); PROPOXYPHENE STAT NEGATIVE (NEGATIVE); TRICYCLIC ANTIDEPRESSANTS SCRE NEGATIVE (NEGATIVE)
[2018-07-22 06:14] LABS: TSH (THYROID ANALYZER) 1.95 UIU/ML (0.35-4.94)
[2018-07-22 07:15] VITALS: BP 128/78
== END 2018-07-22 07:17 | disposition short-term general hospital (02) ==
LOC: EDUNIT# 04:30 → ER 04:32
DX: S51.812A Laceration without foreign body of left forearm, initial encounter (principal); R45.851 Suicidal ideations; G47.30 Sleep apnea, unspecified; J44.9 Chronic obstructive pulmonary disease, unspecified; I48.91 Unspecified atrial fibrillation; I25.10 Atherosclerotic heart disease of native coronary artery without angina pectoris; E78.00 Pure hypercholesterolemia, unspecified; I11.0 Hypertensive heart disease with heart failure; I50.9 Heart failure, unspecified; E11.59 Type 2 diabetes mellitus with other circulatory complications; I73.9 Peripheral vascular disease, unspecified; F41.9 Anxiety disorder, unspecified; F32.9 Major depressive disorder, single episode, unspecified; K21.9 Gastro-esophageal reflux disease without esophagitis; Z86.73 Personal history of transient ischemic attack (TIA), and cerebral infarction without residual deficits; Z91.19 Patient's noncompliance with other medical treatment and regimen; Z91.5 Personal history of self-harm; Z88.8 Allergy status to other drugs, medicaments and biological substances; Z88.5 Allergy status to narcotic agent; Z80.8 Family history of malignant neoplasm of other organs or systems; Z82.49 Family history of ischemic heart disease and other diseases of the circulatory system; Z79.51 Long term (current) use of inhaled steroids; Z80.1 Family history of malignant neoplasm of trachea, bronchus and lung; Z23 Encounter for immunization; Z79.02 Long term (current) use of antithrombotics/antiplatelets; Z87.891 Personal history of nicotine dependence; Z95.1 Presence of aortocoronary bypass graft; Z95.5 Presence of coronary angioplasty implant and graft; Z79.01 Long term (current) use of anticoagulants; X78.1XXA Intentional self-harm by knife, initial encounter
CPT/HCPCS: 36415; 80053; 80306; 80320; 80329; 84443; 85025; 90715; 93005

== ENCOUNTER 2018-11-05 02:50 | Emergency (ER) | payer MEDICARE, MEDICAID ==
[~2018-11-05] VITALS: Ht 185.4 cm; Wt 127.0 kg
[~2018-11-05 02:50] MED LIST changes: -AMLO5TAB7 PO; +AMLO5TAB9 PO; +RIVA10T PO; -RIVA10TA PO; -RIVA20TA PO; +RIVA20TA2 PO
[2018-11-05] MEDS ORDERED: NS IV 1000 ML 1,000 ML IV ONE ×2 (03:04→04:19)
[2018-11-05 03:09] LABS: BASOPHILS % (AUTO) 0 % (0-10); EOSINOPHILS # (AUTO) 0.3 10^3/uL (0.0-0.3); EOSINOPHILS % (AUTO) 2 % (0-10); HEMATOCRIT 35 % (40-54); HEMOGLOBIN 12.5 G/DL (13.3-17.7); LYMPHOCYTES # (AUTO) 4.6 X 10^3 (1.0-4.0); LYMPHOCYTES % (AUTO) 41 % (12-44); MEAN CORPUSCULAR HEMOGLOBIN 29 PG (25-34); MEAN CORPUSCULAR HGB CONC 35 G/DL (32-36); MEAN CORPUSCULAR VOLUME 81 FL (80-99); MEAN PLATELET VOLUME 9.7 FL (7.4-10.4); MONOCYTES # (AUTO) 0.7 X 10^3 (0.0-1.0); MONOCYTES % (AUTO) 6 % (0-12); NEUTROPHILS # (AUTO) 5.6 X 10^3 (1.8-7.8); NEUTROPHILS % (AUTO) 50 % (42-75); PLATELET COUNT 279 10^3/uL (130-400); RED CELL DISTRIBUTION WIDTH 13.2 % (10.0-14.5); WHITE BLOOD COUNT 11.2 10^3/uL (4.3-11.0)
[2018-11-05] MEDS ORDERED: ONDANSETRON 4 MG/2 ML (SDV) Z0FRAN IVP ONE (03:15)
[2018-11-05 03:24] LABS: PROTHROMBIN TIME PATIENT 13.9 SEC (12.2-14.7)
[2018-11-05 03:32] LABS: ALANINE AMINOTRANSFERASE 13 U/L (0-55); ALBUMIN 3.7 GM/DL (3.2-4.5); ALKALINE PHOSPHATASE 67 U/L (40-136); BILIRUBIN,TOTAL 0.3 MG/DL (0.1-1.0); BUN/CREATININE RATIO 8; CALCIUM 8.7 MG/DL (8.5-10.1); CARBON DIOXIDE 24 MMOL/L (21-32); CHLORIDE 103 MMOL/L (98-107); CREATININE SERUM 1.16 MG/DL (0.60-1.30); GFR ESTIMATED > 60; GLUCOSE 109 MG/DL (70-105); POTASSIUM 3.5 MMOL/L (3.6-5.0); SODIUM 137 MMOL/L (135-145); TOTAL PROTEIN 6.5 GM/DL (6.4-8.2)
--- OUTSIDE RECORDS SUMMARY | 2018-11-05 03:59 | XMS REPORT ---
Author Author CHANTELL RAMIREZ Organization [facility] Address [address] [place] [address] Care Team Providers Care Forex Trader Name Role Phone JAMESCHANTELL Unavailable PROBLEMS Type Condition ICD9-CM Code IDS25-IC Code Onset Dates Condition Status SNOMED Code Problem History of stroke Z86.73 Active 673338374 Problem S/P CABG x 5 Z95.1 Active 593311809 Problem Anemia D64.9 Active 877644097 Problem Essential hypertension I10 Active 39596146 Problem Sciatica, unspecified side M54.30 Active 26502588 Problem Gastroparesis K31.84 Active 408635715 Problem Generalized anxiety disorder F41.1 Active 55834134 Problem Chronic obstructive pulmonary disease, unspecified J44.9 Active 18148269 Problem Intractable migraine without aura and with status migrainosus G43.011 Active 763409398 Problem 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 Active 53316537 Problem Sciatica of left side M54.32 Active 83402110 Problem Diarrhea, unspecified type R19.7 Active 14863969 Problem Other elevated white blood cell count D72.828 Active 463812827 Problem Acute right-sided low back pain with right-sided sciatica M54.41 Active 394631501 Problem GERD with esophagitis K21.0 Active 432411115 Problem Anticoagulant long-term use Z79.01 Active 419129744 Problem Hyperplastic colonic polyp, unspecified part of colon K63.5 Active 358909641 Problem Hyperlipidemia, unspecified E78.5 Active 56843651 Problem Cannabis abuse F12.10 Active 66589451 Problem Hepatic steatosis K76.0 Active 241101243 Problem 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 Active 60095846 Problem Mixed obsessional thoughts and acts F42.2 Active 15788381 Problem Paroxysmal atrial fibrillation I48.0 Active 534983059 Problem Coronary artery 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 stable 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 Active 183662943 Problem Depression F32.9 Active 29401120 Problem GERD (gastroesophageal reflux disease) K21.9 Active 030293696 Problem Post traumatic stress disorder (PTSD) F43.10 Active 83327218 Problem Panic attack F41.0 Active 588196546 Problem Prediabetes R73.03 Active 834128683 Problem Vertigo R42 Active 822021727 ALLERGIES No Information ENCOUNTERS Encounter Location Date Diagnosis [place] [address] [address] Sep, [facility] [address] [address] Aug, [place] [address] [address] Aug, [place] [address] [address] Jul, [place] [address] [address] Jun, 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 ; Mixed obsessional thoughts and acts F42.2 and Cannabis abuse F12.10 [place] [address] [address] Apr, Cutaneous abscess of trunk, unspecified L02.219 ; Cellulitis of trunk, unspecified L03.319 and Acute right-sided low back pain with right-sided sciatica M54.41 [facility] [address] [place] [id number] [place] [address] Apr, Lumbar sprain, initial encounter S33.5XXA [place] [address] [address] Mar, [place] [address] [address] Feb, 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 ; Mixed obsessional thoughts and acts F42.2 and Cannabis abuse F12.10 [place] [address] [address] Feb, 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 ; Mixed obsessional thoughts and acts F42.2 and Cannabis abuse F12.10 [place] [id number] [place] [address] Feb, GERD with esophagitis K21.0 [place] [address] [place] [id number] [place] [address] Feb, [place] [address] [place] [id number] [place] [address] Nov, Chronic combined systolic (congestive) and diastolic ( congestive) heart failure I50.42 ; Chronic obstructive pulmonary disease, unspecified J44.9 ; Essential hypertension I10 ; Hyperlipidemia, unspecified E78.5 ; Anticoagulant long-term use Z79.01 ; Depression F32.9 ; Paroxysmal atrial fibrillation I48.0 and Coronary artery 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 stable 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 [place] [address] [place] [address] Oct, Chronic obstructive pulmonary disease, unspecified J44.9 [place] [address] [place] [id number] [place] [address] Sep, 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 ; Mixed obsessional thoughts and acts F42.2 and Cannabis abuse F12.10 [place] [address] [place] [address] Aug, 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 ; Mixed obsessional thoughts and acts F42.2 and Cannabis abuse F12.10 [place] [address] [place] [id number] [place] [address] Aug, 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 and Mixed obsessional thoughts and acts F42.2 [place] [id number] [place] [address] Jul, 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 and Mixed obsessional thoughts and acts F42.2 [place] [address] [place] [id number] [place] [address]- [address] Jul, 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 and Mixed obsessional thoughts and acts F42.2 [place] [address] [place] [id number] [place] [address]- [address] Jul, 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 ; Mixed obsessional thoughts and acts F42.2 and Cannabis abuse F12.10 [place] [address] [place] [id number] [place] [address] Jun, 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 ; Mixed obsessional thoughts and acts F42.2 and Cannabis abuse F12.10 [place] [address] [place] [id number] [place] [address] Jun, [place] [address] [place] [id number] [place] [address] 14599- [address] Jun, 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 ; Mixed obsessional thoughts and acts F42.2 and Cannabis abuse F12.10 [place] [address] [place] [id number] [place] [address] May, 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 ; Mixed obsessional thoughts and acts F42.2 and Cannabis abuse F12.10 [place] [address] [place] [id number] [place] [address] May, 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 [place] [address] [place] [id number] [place] [address] Mar, [place] [address] [place] [id number] [place] [address] Mar, Chronic combined systolic (congestive) and diastolic ( congestive) heart failure I50.42 ; Diarrhea, unspecified type R19.7 ; Hepatic steatosis K76.0 and Generalized postprandial abdominal pain R10.84 [place] [address] [place] [id number] [place] [address] Jan, Generalized abdominal pain R10.84 [place] [address] [place] [id number] [place] [address] Jan, Generalized abdominal pain R10.84 ; Generalized postprandial abdominal pain R10.84 ; Diarrhea, unspecified type R19.7 ; Non- intractable vomiting with nausea, unspecified vomiting type R11.2 ; GERD ( gastroesophageal reflux disease) K21.9 ; S/P CABG x 5 Z95.1 ; Prominent abdominal aortic pulsation R09.89 and Other elevated white blood cell count D72.828 [place] [address] [address] Jan, Vertigo R42 [address] [address] Jan, Other elevated white blood cell count D72.828 [place] [address] [place] [id number] [place] [address]- [address] Jan, Other elevated white blood cell count D72.828 [place] [address] [address] Jan, Hyperlipidemia, unspecified E78.5 ; Sciatica of left side M54.32 ; Weight loss R63.4 and Night sweats R61 [facility] [address] [place] [id number] [place] [id number] December, Dental caries K02.9 and Dental examination Z01.20 [place] [id number] [place] [address] Oct, Vertigo R42 ; Nausea R11.0 ; Chronic obstructive pulmonary disease, unspecified J44.9 ; GERD (gastroesophageal reflux disease) K21.9 ; S/P CABG x 5 Z95.1 ; Hyperlipidemia, unspecified E78.5 ; Essential hypertension I10 ; Paroxysmal atrial fibrillation I48.0 and Depression F32.[address] [place] [address] Oct, [facility] [address] [place] [id number] [place] [address] 14073- [address] Oct, Hyperlipidemia, unspecified E78.5 [facility] [address] [place] [id number] [place] [address] 6[address]- [address] Oct, 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 [place] [address] [place] [id number] [place] [address]- 230[address] Oct, Vertigo R42 [place] [address] [place] [id number] [place] [address]- [address] Oct, [place] [address] [place] [id number] [place] [address] 656[address]- [address] Sep, [place] [address] [place] [id number] [place] [address] 48741- [address] Aug, 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 [place] [address] [place] [id number] [place] [address] 55966- [address] 05 Jul, 2016 Depression F32.9 ; Generalized anxiety disorder F41.1 and Panic attack F41.0 [facility] [address] [place] [id number] [place] [address] [id number] 02 Jul, 2016 Dental examination Z01.20 [place] [address] [place] [id number] [place] [address] 83066- [address] 30 Jun, 2016 [facility] [address] [place] [id number] [place] [address] 4[address]- [address] 30 Jun, 2016 Encounter for dental examination and cleaning without abnormal findings Z01.20 [place] [address] [place] [id number] [place] [address] 81045- 98[address] 15 Jun, 2016 Intractable migraine without aura and with status migrainosus G43.011 ; Coronary artery 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 stable 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 ; B12 deficiency E53.8 and Depression F32.9 [facility] [address] [place] [id number] [place] [address]64- [address] 15 Jun, 2016 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 [place] [address] [address] 14 Jun, 2016 Depression F32.9 ; Generalized anxiety disorder F41.1 ; Post traumatic stress disorder (PTSD) F43.10 and Panic attack F41.0 [place] [address] [address] 04 Jun, 2016 [place] [address] [address] Jun, [place] [address] [address] May, [place] [address] [address] May, Elevated glucose R73.09 ; Depression F32.9 ; Hyperlipidemia , unspecified E78.5 ; Prediabetes R73.03 ; B12 deficiency E53.8 ; Vertigo R42 ; Seborrheic keratosis L82.1 ; Chronic obstructive pulmonary disease, unspecified J44.9 and Blurry vision H53.8 [place] [address] [place] [id number] [place] [address] 9[address]64- [address]44 Apr, [place] [address] [place] [id number] [place] [address] 32396- 4603 Jan, Elevated glucose R73.09 ; Anemia D64.9 and Weakness generalized R53.1 [place] [address] [place] [id number] [place] [address] 87927- [address] Jan, [place] [address] [address] Jan, [place] [address] [place] [id number] [place] [address] 32999- [address]99 December, Sciatica, left side M54.32 [place] [address] [place] [address] Nov, Sciatica, unspecified side M54.30 ; Chronic obstructive pulmonary disease, unspecified J44.9 ; GERD (gastroesophageal reflux disease) K21.9 ; Coronary artery 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 stable 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 and Pre-syncope R55 [place] [address] [place] [id number] [place] [address]- 2014 Sep, [place] [address] [address] Aug, Coumadin toxicity, accidental or unintentional, subsequent encounter T60.4X1D [place] [address] 9[address] Aug, [place] [address] [address] Aug, Coumadin toxicity, accidental or unintentional, subsequent encounter T60.4X1D ; Atherosclerosis of coronary artery bypass graft(s) without angina pectoris I25.810 and History of stroke Z86.73 [facility] [address] [place] [id number] [place] [address] Aug, Ear canal abrasion, left, initial encounter S00.412A and Anticoagulant long-term use Z79.01 [place] [address] [place] [id number] [place] [address] 6[address]- [address]37 Jul, [place] [address] [address] Jul, Anticoagulant long-term use Z79.01 ; Polyarthralgia M25.50 ; Sciatica, left M54.32 ; Costochondritis M94.0 ; COPD exacerbation J44.1 and Depression F32.9 [facility] [address] [place] [id number] [place] [address] 10088- 6168 May, [place] [address] [address] Apr, Hyperlipidemia 272.4 ; Coronary artery disease 414.00 ; History of stroke V12.54 ; COPD (chronic obstructive pulmonary disease) 496 ; Hypertension 401.9 ; Sciatica 724.3 ; Encounter for monitoring coumadin therapy V58.83 ; Vertigo as late effect of stroke 438.85 ; Generalized anxiety disorder 300.02 and GERD (gastroesophageal reflux disease) 530.81 IMMUNIZATIONS No Known Immunizations SOCIAL HISTORY Never Assessed REASON FOR VISIT ED visit/inpt admission PLAN OF CARE VITAL SIGNS MEDICATIONS Unknown [...] 02/06/18 Hospitalization History For surgeries Hospitalization History [facility] in his 20's Hospitalization History [facility]- Chest Pain; Hx of CAD 02/07/2018
--- OUTSIDE RECORDS SUMMARY | 2018-11-05 04:10 | XMS REPORT | Continuity of Care Document ---
Author Author [facility] Organization [facility] Address Unknown Phone Unavailable Allergies Active Description Code Type Severity Reaction Onset Reported/Identified Relationship to Patient Clinical Status Yes bee venom (honey bee) [id number] Drug Allergy Unknown N/A 04/23/2015 Yes prednisone [id number] Drug Allergy Moderate RASH 02/25/2017 Yes hydrocodone [id number] Drug Allergy Unknown N/A 02/25/2017 Yes venom-honey bee [id number] Drug Allergy Unknown N/A 02/25/2017 Medications There [...] PIMENTEL MD Ot 414.01 CORONARY ATHEROSCLEROSIS OF [place] CORON 04/27/2015 JAMEEL PIMENTEL MD Ot 414.2 [...] INI 08/31/2015 ERIC WALL APRN Ot Y92.[address] [facility] [address] IN [facility] 08/31/2015 ERIC WALL APRN Ot Y99.8 OTHER EXTERNAL CAUSE STATUS 08/31/2015 ERIC WALL APRN Ot Z79.01 SKILLED NURSING (CURRENT) USE OF ANTICOAGULANT 08/31/2015 ERIC WALL APRN Ot Z86.73 PRSNL HX OF TIA (TIA), AND CEREB INFRC W 09/10/2015 MARY JON 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 Ot G47.33 OBSTRUCTIVE SLEEP APNEA (ADULT) (PEDIATR [...] OF CORONARY ANGIOPLASTY IMPLANT 02/29/2016 ANA LUISA ONVA FACC, JT FACP CCDS Ot E66.9 OBESITY, UNSPECIFIED 02/29/2016 ANA LUISA NOVA FACC, JT FACP CCDS Ot E78.5 HYPERLIPIDEMIA, UNSPECIFIED 02/29/2016 ANA LUISA NOVA FACC, JT FACP CCDS Ot G47.30 SLEEP APNEA, UNSPECIFIED 02/29/2016 ANA LUISA NOVA FACC, JT FACP CCDS Ot I10 ESSENTIAL (PRIMARY) HYPERTENSION 02/29/2016 ANA LUISA NOVA FACC, JT FACP CCDS Ot 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 02/29/2016 ANA LUISA NOVA FACC, JT FACP CCDS Ot I25.82 CHRONIC TOTAL OCCLUSION OF CORONARY [place] 02/29/2016 ANA LUISA NOVA FACC, JT FACP CCDS Ot I48.91 UNSPECIFIED ATRIAL FIBRILLATION 02/29/2016 ANA LUISA NOVA FACC, JT FACP CCDS Ot Z68.38 BODY MASS INDEX (BMI) 38.0-38.9, ADULT 02/29/2016 ANA LUISA NOVA FACC, ALI FACP CCDS Ot Z79.01 HEAT TREATING OPERATOR (CURRENT) USE OF ANTICOAGULANT 02/29/2016 ANA LUISA NOVA FACC, ALI FACP CCDS Ot Z79.899 OTHER HEAT TREATING OPERATOR (CURRENT) DRUG THERAPY 02/29/2016 ANA LUISA NOVA [...] CCDS Ot 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 03/28/2016 ANA LUISA NOVA FACC, ALI FACP CCDS Ot I25.82 CHRONIC TOTAL OCCLUSION OF CORONARY KEKE 03/28/2016 ANA LUISA NOVA FACC, ALI FACP CCDS Ot I48.91 UNSPECIFIED ATRIAL FIBRILLATION 03/28/2016 ANA LUISA NOVA FACC, ALI FACP CCDS Ot Z68.38 BODY MASS INDEX (BMI) 38.0-38.9, ADULT 03/28/2016 ANA LUISA NOVA FACC, ALI FACP CCDS Ot Z79.01 SKILLED NURSING (CURRENT) USE OF ANTICOAGULANT 03/28/2016 ANA LUISA NOVA FACC, ALI FACP CCDS Ot Z79.899 OTHER SKILLED NURSING (CURRENT) DRUG THERAPY 03/28/2016 ANA LUISA NOVA [...] CCDS Ot 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 04/13/2016 JT OROSCO MD, FACC FACP CCDS Ot I25.82 CHRONIC TOTAL OCCLUSION OF CORONARY KE[place] 04/13/2016 JT OROSCO MD, FACC FACP CCDS Ot I48.91 UNSPECIFIED ATRIAL FIBRILLATION 04/13/2016 JT OROSCO MD, FACC FACP CCDS Ot Z68.38 BODY MASS INDEX (BMI) 38.0-38.9, ADULT 04/13/2016 JT OROSCO MD, FACC FACP CCDS Ot Z79.01 SKILLED NURSING (CURRENT) USE OF ANTICOAGULANT 04/13/2016 JT OROSCO MD, FACC FACP CCDS Ot Z79.899 OTHER SKILLED NURSING (CURRENT) DRUG THERAPY 04/13/2016 JT OROSCO MD, [...] CCDS Ot 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 04/16/2016 JT OROSCO MD, FACC FACP CCDS Ot I25.82 CHRONIC TOTAL OCCLUSION OF CORONARY KEKE 04/16/2016 ANA LUISA NOVA FACC, JT FACP CCDS Ot I48.91 UNSPECIFIED ATRIAL FIBRILLATION 04/16/2016 ANA LUISA NOVA FACC, JT FACP CCDS Ot Z68.38 BODY MASS INDEX (BMI) 38.0-38.9, ADULT 04/16/2016 JT OROSCO MD, FACC FACP CCDS Ot Z79.01 SKILLED NURSING (CURRENT) USE OF ANTICOAGULANT 04/16/2016 JT OROSCO MD, FACC FACP CCDS Ot Z79.899 OTHER SKILLED NURSING (CURRENT) DRUG THERAPY 04/16/2016 JT OROSCO MD, FACC FACP CCDS Ot Z82.49 FAMILY HX OF ISCHEM HEART DIS AND OTH DI 04/16/2016 JT OROSCO MD, FACC FACP CCDS Ot Z86.73 PRSNL HX OF TIA (TIA), AND CEREB INFRC W 04/16/2016 JT OROSCO MD, FACC FACP CCDS Ot Z95.1 PRESENCE OF AORTOCORONARY BYPASS GRAFT 06/18/2016 ERIC WALL APRN Ot I25.10 ATHSCL HEART DISEASE OF [place] CORONARY 06/18/2016 ERIC WALL APRN Ot I48.2 CHRONIC ATRIAL FIBRILLATION 06/18/2016 ERIC WALL APRN Ot J44.9 CHRONIC OBSTRUCTIVE PULMONARY DISEASE, U 06/18/2016 ERIC WALL APRN Ot R00.2 PALPITATIONS 06/18/2016 ERIC WALL APRN Ot R07.89 OTHER CHEST PAIN 06/18/2016 ERIC WALL APRN Ot R51 HEADACHE 06/18/2016 ERIC WALL APRN Ot Z79.01 HEAT TREATING OPERATOR (CURRENT) USE OF ANTICOAGULANT 06/18/2016 ERIC WALL APRN Ot Z79.02 HEAT TREATING OPERATOR (CURRENT) USE OF ANTITHROMBOTI 06/18/2016 ERIC WALL APRN Ot Z79.899 OTHER SKILLED NURSING (CURRENT) DRUG THERAPY 06/18/2016 ERIC WALL APRN [...] MD Ot I25.10 ATHSCL HEART DISEASE OF [place] CORONARY 02/01/2017 SHA HOLDER MD Ot I48.91 UNSPECIFIED ATRIAL FIBRILLATION 02/01/2017 SHA HOLDER MD Ot J44.9 CHRONIC OBSTRUCTIVE PULMONARY DISEASE, U 02/01/2017 SHA HOLDER MD Ot R10.32 LEFT LOWER QUADRANT PAIN 02/01/2017 SHA HOLDER MD, Ot R10.84 GENERALIZED ABDOMINAL PAIN 02/01/2017 SHA HOLDER MD, Ot Z79.01 SKILLED NURSING (CURRENT) USE OF ANTICOAGULANT 02/01/2017 SHA HOLDER [...] MD, Ot I25.10 ATHSCL HEART DISEASE OF [place] CORONARY 02/25/2017 MANOJ BAUMANN MD Ot I48.91 UNSPECIFIED ATRIAL FIBRILLATION 02/25/2017 MANOJ BAUMANN MD Ot J21.9 ACUTE BRONCHIOLITIS, UNSPECIFIED 02/25/2017 MANOJ BAUMANN MD, Ot K25.9 GASTRIC ULCER, UNSP ACUTE OR CHRONIC, 02/25/2017 MANOJ BAUMANN MD Ot K26.9 DUODENAL ULCER, UNSP ACUTE OR CHRONIC 02/25/2017 MANOJ BAUMANN MD Ot K63.5 POLYP OF COLON 02/25/2017 MANOJ BAUMANN MD Ot Z79.899 OTHER SKILLED NURSING (CURRENT) DRUG THERAPY 02/25/2017 MANOJ BAUMANN MD, [...] MD Ot I25.10 ATHSCL HEART DISEASE OF [place] CORONARY 03/29/2017 JUNIOR XIE MD Ot N20.0 CALCULUS OF KIDNEY 03/29/2017 JUNIOR XIE MD Ot R10.84 GENERALIZED ABDOMINAL PAIN 03/29/2017 JUNIOR XIE MD Ot R19.7 DIARRHEA, UNSPECIFIED 04/03/2017 JUNIOR XIE MD Ot I25.10 ATHSCL HEART DISEASE OF [place] CORONARY 04/03/2017 JUNIOR XIE MD Ot N20.0 CALCULUS OF KIDNEY 04/03/2017 JUNIOR XIE MD Ot R10.84 GENERALIZED ABDOMINAL PAIN 04/03/2017 JUNIOR XIE MD Ot R19.7 DIARRHEA, UNSPECIFIED 04/11/2017 JUNIOR XIE MD Ot R09.89 OTH SYMPTOMS AND SIGNS INVOLVING THE CIR 04/11/2017 JUNIOR XIE MD Ot Z95.1 PRESENCE OF AORTOCORONARY BYPASS GRAFT 04/19/2017 JUNIOR XIE MD Ot I25.10 ATHSCL HEART DISEASE OF [place] CORONARY 04/19/2017 JUNIOR XIE MD Ot N20.0 [...] DO Ot I25.10 ATHSCL HEART DISEASE OF [place] CORONARY 07/03/2017 KATHY JOHNSON DO Ot I48.91 [...] K Ot I25.10 ATHSCL HEART DISEASE OF [place] CORONARY 07/11/2017 ALEX DOKATHY Ot I48.91 UNSPECIFIED [...] Mehdi Ot I25.10 ATHSCL HEART DISEASE OF [place] CORONARY 07/12/2017 ALEX JIMENZE KATHY Mehdi Ot I48.91 UNSPECIFIED ATRIAL FIBRILLATION [...] Molina Ot I25.10 ATHSCL HEART DISEASE OF [place] CORONARY 09/25/2017 ROJAS NOVA, JUNIOR Molina Ot N20.0 CALCULUS OF KIDNEY 09/25/2017 ROJAS NOVA, JUNIOR Molina Ot R10.84 GENERALIZED ABDOMINAL PAIN 09/25/2017 ROJAS NOVA, JUNIOR Molina Ot R19.7 DIARRHEA, UNSPECIFIED 09/27/2017 JUNIOR XIE MD Ot I25.10 ATHSCL HEART DISEASE OF [place] CORONARY 09/27/2017 JUNIOR XIE MD Ot N20.0 [...] MD Ot I25.10 ATHSCL HEART DISEASE OF [place] CORONARY 09/27/2017 JUNIOR XIE MD Ot N20.0 [...] MD Ot I25.10 ATHSCL HEART DISEASE OF [place] CORONARY 09/30/2017 JUNIOR XIE MD Ot N20.0 CALCULUS OF KIDNEY 09/30/2017 JUNIOR XIE MD Ot R10.84 GENERALIZED ABDOMINAL PAIN 09/30/2017 JUNOIR XIE MD Ot R19.7 DIARRHEA, UNSPECIFIED 10/05/2017 JUNIOR XIE MD Ot I25.10 ATHSCL HEART DISEASE OF [place] CORONARY 10/05/2017 JUNIOR XIE MD Ot N20.0 CALCULUS OF KIDNEY 10/05/2017 ROJAS MD, JUNIOR N Ot R10.84 GENERALIZED ABDOMINAL PAIN 10/05/2017 JUNIOR XIE MD Ot R19.7 DIARRHEA, UNSPECIFIED 11/02/2017 JUNIOR XIE MD Ot I25.10 ATHSCL HEART DISEASE OF [place] CORONARY 11/02/2017 JUNIOR XIE MD Ot N20.0 [...] HDZ Ot I25.10 ATHSCL HEART DISEASE OF [place] CORONARY 01/24/2018 ASUNCION HDZ Ot Z68.38 BODY MASS INDEX (BMI) 38.0-38.9, ADULT 01/24/2018 ASUNCION HDZ Ot Z79.899 OTHER SKILLED NURSING (CURRENT) DRUG THERAPY 01/29/2018 JAMEEL PIMENTEL MD Ot E66.9 OBESITY, UNSPECIFIED 01/29/2018 JAMEEL PIMENTEL MD Ot E78.2 MIXED HYPERLIPIDEMIA 01/29/2018 JAMEEL PIMENTEL MD J Ot I10 ESSENTIAL (PRIMARY) HYPERTENSION 01/29/2018 JAMEEL PIMENTEL MD Ot I25.10 ATHSCL HEART DISEASE OF [place] CORONARY 01/29/2018 JAMEEL PIMENTEL MD Ot R07.9 CHEST PAIN, UNSPECIFIED 01/29/2018 JAMEEL PIMENTEL MD Ot E66.9 OBESITY, UNSPECIFIED 01/29/2018 JAMEEL PIMENTEL MD Ot E78.2 MIXED HYPERLIPIDEMIA 01/29/2018 JAMEEL PIMENTEL MD Ot I10 ESSENTIAL (PRIMARY) HYPERTENSION 01/29/2018 JAMEEL PIMENTEL MD Ot I25.10 ATHSCL HEART DISEASE OF [place] CORONARY 01/29/2018 JAMEEL PIMENTEL MD Ot R07.9 CHEST PAIN, UNSPECIFIED 02/07/2018 Marcia LYMAN MD Ot E66.9 OBESITY, UNSPECIFIED 02/07/2018 Marcia LYMAN MD, Ot E78.5 HYPERLIPIDEMIA, UNSPECIFIED 02/07/2018 Marcia LYMAN MD, Ot G47.33 OBSTRUCTIVE SLEEP APNEA (ADULT) (PEDIATR 02/07/2018 Marcia LYMAN MD Ot I10 ESSENTIAL (PRIMARY) HYPERTENSION 02/07/2018 Marcia LYMAN MD Ot I25.10 ATHSCL HEART DISEASE OF [place] CORONARY 02/07/2018 Marcia LYMAN MD, Ot I25.82 CHRONIC TOTAL OCCLUSION OF CORONARY KE[place] 02/07/2018 Marcia LYMAN MD, Ot I48.0 PAROXYSMAL ATRIAL FIBRILLATION 02/07/2018 Marcia LYMAN MD, Ot T82.855A STENOSIS OF CORONARY ARTERY STENT, INITI 02/07/2018 Marcia LYMAN MD Ot Z68.35 BODY MASS INDEX (BMI) 35.0-35.9, ADULT 02/07/2018 Marcia LYMAN MD Ot Z79.01 HEAT TREATING OPERATOR (CURRENT) USE OF ANTICOAGULANT 02/07/2018 Marcia LYMAN MD Ot Z79.899 OTHER SKILLED NURSING (CURRENT) DRUG THERAPY 02/07/2018 Marcia LYMAN MD [...] MD Ot I25.10 ATHSCL HEART DISEASE OF [place] CORONARY 02/07/2018 Marcia LYMAN MD Ot I25.82 CHRONIC TOTAL OCCLUSION OF CORONARY KE[place] 02/07/2018 Marcia LYMAN MD, Ot I48.0 PAROXYSMAL ATRIAL FIBRILLATION 02/07/2018 Marcia LYMAN MD, Ot T82.855A STENOSIS OF CORONARY ARTERY STENT, INITI 02/07/2018 Marcia LYMAN MD, Ot Z68.35 BODY MASS INDEX (BMI) 35.0-35.9, ADULT 02/07/2018 Marcia LYMAN MD, Ot Z79.01 SKILLED NURSING (CURRENT) USE OF ANTICOAGULANT 02/07/2018 Marcia LYMAN MD, Ot Z79.899 OTHER SKILLED NURSING (CURRENT) DRUG THERAPY 02/07/2018 Marcia LYMAN MD, Ot Z86.73 PRSNL HX OF TIA (TIA), AND CEREB INFRC W 02/07/2018 Marcia LYMAN MD, Ot Z95.1 PRESENCE OF AORTOCORONARY BYPASS GRAFT 02/07/2018 Marcia LYMAN MD Ot Z95.5 PRESENCE OF CORONARY ANGIOPLASTY IMPLANT 02/08/2018 Marcia LYMAN MD Ot E11.9 TYPE 2 DIABETES MELLITUS WITHOUT COMPLIC 02/08/2018 Macria LYMAN MD Ot E66.01 MORBID (SEVERE) OBESITY [...] MD Ot I25.10 ATHSCL HEART DISEASE OF [place] CORONARY 02/08/2018 Marcia LYMAN MD Ot I25.82 [...] ADULT 02/08/2018 Marcia LYMAN MD, Ot Z79.01 SKILLED NURSING (CURRENT) USE OF ANTICOAGULANT 02/08/2018 Marcia LYMAN MD, Ot Z79.02 SKILLED NURSING (CURRENT) USE OF ANTITHROMBOTI 02/08/2018 Marcia LYMAN MD, Ot Z79.899 OTHER HEAT TREATING OPERATOR (CURRENT) DRUG THERAPY 02/08/2018 Marcia LYMAN MD, [...] MD, Ot I25.10 ATHSCL HEART DISEASE OF [place] CORONARY 02/08/2018 Marcia LYMAN MD Ot I48.0 [...] ADULT 02/08/2018 Marcia LYMAN MD Ot Z79.01 SKILLED NURSING (CURRENT) USE OF ANTICOAGULANT 02/08/2018 Marcia LYMAN MD, Ot Z79.02 HEAT TREATING OPERATOR (CURRENT) USE OF ANTITHROMBOTI 02/08/2018 Marcia LYMAN MD, Ot Z79.899 OTHER HEAT TREATING OPERATOR (CURRENT) DRUG THERAPY 02/08/2018 Marcia LYMAN MD, [...] Jesse Ot I25.10 ATHSCL HEART DISEASE OF [place] CORONARY 02/10/2018 ASUNCION HDZ Jesse Ot Z68.38 BODY MASS INDEX (BMI) 38.0-38.9, ADULT 02/10/2018 ASUNCION HDZ Jesse Ot Z79.899 OTHER SKILLED NURSING (CURRENT) DRUG THERAPY 02/18/2018 JAMEEL PIMENTEL MD Ot E66.9 OBESITY, UNSPECIFIED 02/18/2018 JAMEEL PIMENTEL MD Ot E78.2 MIXED HYPERLIPIDEMIA 02/18/2018 JAMEEL PIMENTEL MD Ot I10 ESSENTIAL (PRIMARY) HYPERTENSION 02/18/2018 JAMEEL PIMENTEL MD Ot I25.10 ATHSCL HEART DISEASE OF [place] CORONARY 02/18/2018 JAMEEL PIMENTEL MD Ot R07.9 CHEST PAIN, UNSPECIFIED 02/18/2018 JAMEEL PIMENTEL MD Ot E66.9 OBESITY, UNSPECIFIED 02/18/2018 JAMEEL PIMENTEL MD Ot E78.2 MIXED HYPERLIPIDEMIA 02/18/2018 JAMEEL PIMENTEL MD Ot I10 ESSENTIAL (PRIMARY) HYPERTENSION 02/18/2018 JAMEEL PIMENTEL MD Ot I25.10 ATHSCL HEART DISEASE OF [place] CORONARY 02/18/2018 JAMEEL PIMENTEL MD Ot R07.9 [...] MD, Ot I25.10 ATHSCL HEART DISEASE OF [place] CORONARY 02/28/2018 JUNIOR XIE MD, Ot N20.0 [...] HDZ Ot I25.10 ATHSCL HEART DISEASE OF [place] CORONARY 02/28/2018 ASUNCION HDZ Ot Z68.38 BODY MASS INDEX (BMI) 38.0-38.9, ADULT 02/28/2018 ASUNCION HDZ Ot Z79.899 OTHER SKILLED NURSING (CURRENT) DRUG THERAPY 02/28/2018 JAMEEL PIMENTEL MD Ot E66.9 OBESITY, UNSPECIFIED 02/28/2018 JAMEEL PIMENTEL MD Ot E78.2 MIXED HYPERLIPIDEMIA 02/28/2018 JAMEEL PIMENTEL MD Ot I10 ESSENTIAL (PRIMARY) HYPERTENSION 02/28/2018 JAMEEL PIMENTEL MD Ot I25.10 ATHSCL HEART DISEASE OF [place] CORONARY 02/28/2018 JAMEEL PIMENTEL MD Ot R07.9 CHEST PAIN, UNSPECIFIED 02/28/2018 JAMEEL PIMENTEL MD Ot E66.9 OBESITY, UNSPECIFIED 02/28/2018 JAMEEL PIMENTEL MD Ot E78.2 MIXED HYPERLIPIDEMIA 02/28/2018 JAMEEL PIMENTEL MD Ot I10 ESSENTIAL (PRIMARY) HYPERTENSION 02/28/2018 JAMEEL PIMENTEL MD Ot I25.10 ATHSCL HEART DISEASE OF [place] CORONARY 02/28/2018 JAMEEL PIMENTEL MD Ot R07.9 CHEST PAIN, UNSPECIFIED 03/03/2018 DELMAN DO, CHATO B Ot K29.50 UNSPECIFIED CHRONIC GASTRITIS WITHOUT BL 03/04/2018 JAMEEL PIMENTEL MD Ot E66.9 OBESITY, UNSPECIFIED 03/04/2018 JAMEEL PIMENTEL MD Ot E78.2 MIXED HYPERLIPIDEMIA 03/04/2018 JAMEEL PIMENTEL MD Ot I10 ESSENTIAL (PRIMARY) HYPERTENSION 03/04/2018 JAMEEL PIMENTEL MD Ot I25.10 ATHSCL HEART DISEASE OF [place] CORONARY 03/04/2018 JAMEEL PIMENTEL MD Ot R07.9 CHEST PAIN, UNSPECIFIED 03/04/2018 JAMEEL PIMENTEL MD Ot E66.9 OBESITY, UNSPECIFIED 03/04/2018 JAMEEL PIMENTEL MD Ot E78.2 MIXED HYPERLIPIDEMIA 03/04/2018 JAMEEL PIMENTEL MD Ot I10 ESSENTIAL (PRIMARY) HYPERTENSION 03/04/2018 JAMEEL PIMENTEL MD Ot I25.10 ATHSCL HEART DISEASE OF [place] CORONARY 03/04/2018 JAMEEL PIMENTEL MD Ot R07.9 [...] HDZ Ot I25.10 ATHSCL HEART DISEASE OF [place] CORONARY 04/02/2018 ASUNCION HDZ Ot Z68.38 BODY MASS INDEX (BMI) 38.0-38.9, ADULT 04/02/2018 ASUNCION HDZ Ot Z79.899 OTHER HEAT TREATING OPERATOR (CURRENT) DRUG THERAPY 04/04/2018 Marcia LYMAN MD Ot Z48.812 ENCNTR FOR SURGICAL AFTCR FOLLOWING SURG 04/04/2018 Marcia LYMAN MD VIVIAN Ot Z95.5 PRESENCE OF CORONARY ANGIOPLASTY IMPLANT 04/04/2018 CHATO JOHNSON DO B Ot K29.50 UNSPECIFIED CHRONIC GASTRITIS WITHOUT BL 05/29/2018 ESMER NOVA, Marcia PARK Ot Z48.812 ENCNTR FOR SURGICAL AFTCR FOLLOWING SURG 05/29/2018 ESMER NOVA, Marcai PARK Ot Z95.5 PRESENCE OF CORONARY ANGIOPLASTY IMPLANT 05/30/2018 ESMER NOVA, Marcia PARK Ot Z48.812 ENCNTR FOR SURGICAL AFTCR FOLLOWING SURG 05/30/2018 Marcia LYMAN MD Ot Z95.5 PRESENCE OF CORONARY ANGIOPLASTY IMPLANT 05/30/2018 ESMER NOVA, Marcia PARK Ot Z48.812 ENCNTR FOR SURGICAL AFTCR FOLLOWING SURG 05/30/2018 Marcia LYMAN MD Ot Z95.5 PRESENCE OF CORONARY ANGIOPLASTY IMPLANT 07/22/2018 RAIN DELGADO MD Ot E11.59 TYPE 2 DIABETES MELLITUS WITH OTH CIRCUL 07/22/2018 RAIN DELGADO MD Ot E78.00 PURE HYPERCHOLESTEROLEMIA, UNSPECIFIED 07/22/2018 RAIN DELGADO MD Ot F32.9 MAJOR DEPRESSIVE DISORDER, SINGLE EPISOD 07/22/2018 RAIN DELGADO MD Ot F41.9 ANXIETY DISORDER, UNSPECIFIED 07/22/2018 RAIN DELGADO MD Ot G47.30 SLEEP APNEA, UNSPECIFIED 07/22/2018 RAIN DELGADO MD Ot I11.0 HYPERTENSIVE HEART DISEASE WITH HEART FA 07/22/2018 RAIN DELGADO MD Ot I25.10 ATHSCL HEART DISEASE OF [place] CORONARY 07/22/2018 RAIN DELGADO MD Ot I48.91 UNSPECIFIED ATRIAL FIBRILLATION 07/22/2018 RAIN DELGADO MD Ot I50.9 HEART FAILURE, UNSPECIFIED 07/22/2018 RAIN DELGADO MD Ot I73.9 PERIPHERAL VASCULAR DISEASE, UNSPECIFIED 07/22/2018 RAIN DELGADO MD Ot J44.9 CHRONIC OBSTRUCTIVE PULMONARY DISEASE, U 07/22/2018 RAIN DELGADO MD, Ot K21.9 GASTRO-ESOPHAGEAL REFLUX DISEASE WITHOUT 07/22/2018 RAIN DELGADO MD, Ot R45.851 SUICIDAL IDEATIONS 07/22/2018 RAIN DELGADO MD, Ot S51.812A LACERATION WITHOUT FOREIGN BODY OF LEFT 07/22/2018 RAIN DELGADO MD, Ot X78.1XXA INTENTIONAL SELF-HARM BY KNIFE, INITIAL 07/22/2018 RAIN DELGADO MD, Ot Z23 ENCOUNTER FOR IMMUNIZATION 07/22/2018 RAIN DELGADO MD, Ot Z79.01 SKILLED NURSING (CURRENT) USE OF ANTICOAGULANT 07/22/2018 RAIN DELGADO MD, Ot Z79.02 HEAT TREATING OPERATOR (CURRENT) USE OF ANTITHROMBOTI 07/22/2018 RAIN DELGADO MD, Ot Z79.51 HEAT TREATING OPERATOR (CURRENT) USE OF INHALED STERO 07/22/2018 RAIN DELGADO MD, Ot Z80.1 FAMILY HISTORY OF MALIG NEOPLASM OF TRAC 07/22/2018 RAIN DELGADO MD, Ot Z80.8 FAMILY HISTORY OF MALIGNANT NEOPLASM OF 07/22/2018 RAIN DELGADO MD, Ot Z82.49 FAMILY HX OF ISCHEM HEART DIS AND OTH DI 07/22/2018 RAIN DELGADO MD, Ot Z86.73 PRSNL HX OF TIA (TIA), AND CEREB INFRC W 07/22/2018 RAIN DELGADO MD, Ot Z87.891 PERSONAL HISTORY OF NICOTINE DEPENDENCE 07/22/2018 RAIN DELGADO MD, Ot Z88.5 ALLERGY STATUS TO NARCOTIC AGENT STATUS 07/22/2018 RAIN DELGADO MD, Ot Z88.8 ALLERGY STATUS TO OT DRUG/MEDS/BIOL SUB 07/22/2018 RAIN DELGADO MD, Ot Z91.19 PATIENT'S NONCOMPLIANCE W OT MEDICAL TR 07/22/2018 RAIN DELGADO MD, Ot Z91.5 PERSONAL HISTORY OF SELF-HARM 07/22/2018 RAIN DELGADO MD, Ot Z95.1 PRESENCE OF AORTOCORONARY BYPASS GRAFT 07/22/2018 RAIN DELGADO MD, Ot Z95.5 PRESENCE OF CORONARY ANGIOPLASTY IMPLANT 07/24/2018 RAIN DELGADO MD Ot E11.59 TYPE 2 DIABETES MELLITUS WITH OTH CIRCUL 07/24/2018 RAIN DELGADO MD Ot E78.00 PURE HYPERCHOLESTEROLEMIA, UNSPECIFIED 07/24/2018 RAIN DELGADO MD Ot F32.9 MAJOR DEPRESSIVE DISORDER, SINGLE EPISOD 07/24/2018 RAIN DELGADO MD, Ot F41.9 ANXIETY DISORDER, UNSPECIFIED 07/24/2018 RAIN DELGADO MD, Ot G47.30 SLEEP APNEA, UNSPECIFIED 07/24/2018 RAIN DELGADO MD Ot I11.0 HYPERTENSIVE HEART DISEASE WITH HEART FA 07/24/2018 RAIN DELGADO MD, Ot I25.10 ATHSCL HEART DISEASE OF [place] CORONARY 07/24/2018 RAIN DELGADO MD Ot I48.91 UNSPECIFIED ATRIAL FIBRILLATION 07/24/2018 RAIN DELGADO MD, Ot I50.9 HEART FAILURE, UNSPECIFIED 07/24/2018 RAIN DELGADO MD, Ot I73.9 PERIPHERAL VASCULAR DISEASE, UNSPECIFIED 07/24/2018 RAIN DELGADO MD, Ot J44.9 CHRONIC OBSTRUCTIVE PULMONARY DISEASE, U 07/24/2018 RAIN DELGADO MD, Ot K21.9 GASTRO-ESOPHAGEAL REFLUX DISEASE WITHOUT 07/24/2018 RAIN DELGADO MD Ot R45.851 SUICIDAL IDEATIONS 07/24/2018 RAIN DELGADO MD, Ot S51.812A LACERATION WITHOUT FOREIGN BODY OF LEFT 07/24/2018 RAIN DELGADO MD Ot X78.1XXA INTENTIONAL SELF-HARM BY KNIFE, INITIAL 07/24/2018 RAIN DELGADO MD, Ot Z23 ENCOUNTER FOR IMMUNIZATION 07/24/2018 RAIN DELGADO MD, Ot Z79.01 HEAT TREATING OPERATOR (CURRENT) USE OF ANTICOAGULANT 07/24/2018 RAIN DELGADO MD, Ot Z79.02 HEAT TREATING OPERATOR (CURRENT) USE OF ANTITHROMBOTI 07/24/2018 RAIN DELGADO MD, Ot Z79.51 HEAT TREATING OPERATOR (CURRENT) USE OF INHALED STERO 07/24/2018 RAIN DELGADO MD, Ot Z80.1 FAMILY HISTORY OF MALIG NEOPLASM OF TRAC 07/24/2018 RAIN DELGADO MD, Ot Z80.8 FAMILY HISTORY OF MALIGNANT NEOPLASM OF 07/24/2018 RAIN DELGADO MD, Ot Z82.49 FAMILY HX OF ISCHEM HEART DIS AND OTH DI 07/24/2018 RAIN DELGADO MD, Ot Z86.73 PRSNL HX OF TIA (TIA), AND CEREB INFRC W 07/24/2018 RAIN DELGADO MD, Ot Z87.891 PERSONAL HISTORY OF NICOTINE DEPENDENCE 07/24/2018 RAIN DELGADO MD, Ot Z88.5 ALLERGY STATUS TO NARCOTIC AGENT STATUS 07/24/2018 RAIN DELGADO MD, Ot Z88.8 ALLERGY STATUS TO OTH DRUG/MEDS/BIOL SUB 07/24/2018 RAIN DELGADO MD, Ot Z91.19 PATIENT'S NONCOMPLIANCE W OTH MEDICAL TR 07/24/2018 RAIN DELGADO MD, Ot Z91.5 PERSONAL HISTORY OF SELF-HARM 07/24/2018 RAIN DELGADO MD, Ot Z95.1 PRESENCE OF AORTOCORONARY BYPASS GRAFT 07/24/2018 RAIN DELGADO MD, Ot Z95.5 PRESENCE OF CORONARY ANGIOPLASTY IMPLANT 07/28/2018 RAIN DELGADO MD Ot E11.59 TYPE 2 DIABETES MELLITUS WITH OTH CIRCUL 07/28/2018 RAIN DELGADO MD Ot E78.00 PURE HYPERCHOLESTEROLEMIA, UNSPECIFIED 07/28/2018 RAIN DELGADO MD Ot F32.9 MAJOR DEPRESSIVE DISORDER, SINGLE EPISOD 07/28/2018 RAIN DELGADO MD, Ot F41.9 ANXIETY DISORDER, UNSPECIFIED 07/28/2018 RAIN DELGADO MD, Ot G47.30 SLEEP APNEA, UNSPECIFIED 07/28/2018 RAIN DELGADO MD, Ot I11.0 HYPERTENSIVE HEART DISEASE WITH HEART FA 07/28/2018 RAIN DELGADO MD, Ot I25.10 ATHSCL HEART DISEASE OF [place] CORONARY 07/28/2018 RAIN DELGADO MD, Ot I48.91 UNSPECIFIED ATRIAL FIBRILLATION 07/28/2018 RAIN DELGADO MD, Ot I50.9 HEART FAILURE, UNSPECIFIED 07/28/2018 RAIN DELGADO MD, Ot I73.9 PERIPHERAL VASCULAR DISEASE, UNSPECIFIED 07/28/2018 RAIN DELGADO MD, Ot J44.9 CHRONIC OBSTRUCTIVE PULMONARY DISEASE, U 07/28/2018 RAIN DELGADO MD, Ot K21.9 GASTRO-ESOPHAGEAL REFLUX DISEASE WITHOUT 07/28/2018 RAIN DELGADO MD Ot R45.851 SUICIDAL IDEATIONS 07/28/2018 RAIN DELGADO MD, Ot S51.812A LACERATION WITHOUT FOREIGN BODY OF LEFT 07/28/2018 RAIN DELGADO MD Ot X78.1XXA INTENTIONAL SELF-HARM BY KNIFE, INITIAL 07/28/2018 RAIN DELGADO MD Ot Z23 ENCOUNTER FOR IMMUNIZATION 07/28/2018 RAIN DELGADO MD, Ot Z79.01 SKILLED NURSING (CURRENT) USE OF ANTICOAGULANT 07/28/2018 RAIN DELGADO MD, Ot Z79.02 HEAT TREATING OPERATOR (CURRENT) USE OF ANTITHROMBOTI 07/28/2018 RAIN DELGADO MD, Ot Z79.51 SKILLED NURSING (CURRENT) USE OF INHALED STERO 07/28/2018 RAIN DELGADO MD, Ot Z80.1 FAMILY HISTORY OF MALIG NEOPLASM OF TRAC 07/28/2018 RAIN DELGADO MD, Ot Z80.8 FAMILY HISTORY OF MALIGNANT NEOPLASM OF 07/28/2018 RAIN DELGADO MD, Ot Z82.49 FAMILY HX OF ISCHEM HEART DIS AND OTH DI 07/28/2018 RAIN DELGADO MD, Ot Z86.73 PRSNL HX OF TIA (TIA), AND CEREB INFRC W 07/28/2018 RAIN DELGADO MD, Ot Z87.891 PERSONAL HISTORY OF NICOTINE DEPENDENCE 07/28/2018 RAIN DELGADO MD, Ot Z88.5 ALLERGY STATUS TO NARCOTIC AGENT STATUS 07/28/2018 RAIN DELGADO MD, Ot Z88.8 ALLERGY STATUS TO OTH DRUG/MEDS/BIOL SUB 07/28/2018 RAIN DELGADO MD, Ot Z91.19 PATIENT'S NONCOMPLIANCE W OTH MEDICAL TR 07/28/2018 RAIN DELGADO MD, Ot Z91.5 PERSONAL HISTORY OF SELF-HARM 07/28/2018 RAIN DELGADO MD, Ot Z95.1 PRESENCE OF AORTOCORONARY BYPASS GRAFT 07/28/2018 RAIN DELGADO MD, Ot Z95.5 PRESENCE OF CORONARY ANGIOPLASTY IMPLANT 07/31/2018 JUNIOR XIE MD, Ot I25.10 ATHSCL HEART DISEASE OF [place] CORONARY 07/31/2018 JUNIOR XIE MD Ot N20.0 CALCULUS OF KIDNEY 07/31/2018 JUNIOR XIE MD Ot R10.84 GENERALIZED ABDOMINAL PAIN 07/31/2018 JUNIOR XIE MD Ot R19.7 DIARRHEA, UNSPECIFIED 09/18/2018 JUNIOR XIE MD, Ot I25.10 ATHSCL HEART DISEASE OF [place] CORONARY 09/18/2018 JUNIOR XIE MD Ot N20.0 CALCULUS OF KIDNEY 09/18/2018 JUNIOR XIE MD Ot R10.84 GENERALIZED ABDOMINAL PAIN 09/18/2018 JUNIOR XIE MD Ot R19.7 DIARRHEA, UNSPECIFIED Procedures Code Description Performed By Performed On PERCUTANEOUS TRANSLUMINAL CORONARY ANGIO 04/24/2015 37.22 LEFT [...] 02/08/18 03:35 Myoglobin, serum 31.6 ng/mL 10.0-92.0 Complete blood count (CBC) with automated white blood cell (WBC) differential - 07/22/18 05:13 Blood leukocytes automated count (number/volume) 12.4 10*3/uL 4.3-11.0 Blood erythrocytes automated count (number/volume) 4.65 10*6/uL 4.35-5.85 Venous blood hemoglobin measurement (mass/volume) 13.4 g/dL 13.3-17.7 Blood hematocrit (volume fraction) 38 % 40-54 Automated erythrocyte mean corpuscular volume 82 [foz_us] 80-99 Automated erythrocyte mean corpuscular hemoglobin (mass per erythrocyte) 29 pg 25-34 Automated erythrocyte mean corpuscular hemoglobin concentration measurement ( mass/volume) 35 g/dL 32-36 Automated erythrocyte distribution width ratio 13.3 % 10.0-14.5 Automated blood platelet count (count/volume) 294 10*3/uL 130-400 Automated blood platelet mean volume measurement 9.4 [foz_us] 7.4-10.4 Automated blood neutrophils/100 leukocytes 56 % 42-75 Automated blood lymphocytes/100 leukocytes 35 % 12-44 Blood monocytes/100 leukocytes 6 % 0-12 Automated blood eosinophils/100 leukocytes 3 % 0-10 Automated blood basophils/100 leukocytes 0 % 0-10 Blood neutrophils automated count (number/volume) 6.9 10*3 1.8-7.8 Blood lymphocytes automated count (number/volume) 4.4 10*3 1.0-4.0 Blood monocytes automated count (number/volume) 0.7 10*3 0.0-1.0 Automated eosinophil count 0.4 10*3/uL 0.0-0.3 Automated blood basophil count (count/volume) 0.1 10*3/uL 0.0-0.1 Comprehensive metabolic panel - 07/22/18 05:13 Serum or plasma sodium measurement (moles/volume) 137 mmol/L 135-145 Serum or plasma potassium measurement (moles/volume) 4.0 mmol/L 3.6-5.0 Serum or plasma chloride measurement (moles/volume) 103 mmol/L 98-107 Carbon dioxide 23 mmol/L 21-32 Serum or plasma anion gap determination (moles/volume) 11 mmol/L 5-14 Serum or plasma urea nitrogen measurement (mass/volume) 7 mg/dL 7-18 Serum or plasma creatinine measurement (mass/volume) 0.89 mg/dL 0.60-1.30 Serum or plasma urea nitrogen/creatinine mass ratio 8 NRG Serum or plasma creatinine measurement with calculation of estimated glomerular filtration rate > NRG Serum or plasma glucose measurement (mass/volume) 144 mg/dL 70-105 Serum or plasma calcium measurement (mass/volume) 9.0 mg/dL 8.5-10.1 Serum or plasma total bilirubin measurement (mass/volume) 0.4 mg/dL 0.1-1.0 Serum or plasma alkaline phosphatase measurement (enzymatic activity/volume) 82 U/L 40-136 Serum or plasma aspartate aminotransferase measurement (enzymatic activity/ volume) 12 U/L 5-34 Serum or plasma alanine aminotransferase measurement (enzymatic activity/volume ) 14 U/L 0-55 Serum or plasma protein measurement (mass/volume) 7.6 g/dL 6.4-8.2 Serum or plasma albumin measurement (mass/volume) 4.3 g/dL 3.2-4.5 CALCIUM CORRECTED 8.8 mg/dL 8.5-10.1 Serum or plasma thyrotropin measurement by detection limit <=0.05 miu/l (units/ volume) - 07/22/18 05:13 Serum or plasma thyrotropin measurement by detection limit <=0.05 miu/l (units/ volume) 1.95 u[iU]/mL 0.35-4.94 Serum or plasma salicylates measurement (mass/volume) - 07/22/18 05:13 Serum or plasma salicylates measurement (mass/volume) < mg/dL 5.0-20.0 Serum or plasma acetaminophen measurement (mass/volume) - 07/22/18 05:13 Serum or plasma acetaminophen measurement (mass/volume) < ug/mL 10-30 Serum or plasma ethanol measurement (mass/volume) - 07/22/18 05:13 Serum or plasma ethanol measurement (mass/volume) < mg/dL <10 Urine drug screening test - 07/22/18 05:45 Urine phencyclidine detection by screening method NEGATIVE [...] NEGATIVE Urine propoxyphene detection NEGATIVE NEGATIVE Complete blood count (CBC) with automated white blood cell (WBC) differential - 11/05/18 02:55 Blood leukocytes automated count (number/volume) 11.2 10*3/uL 4.3-11.0 Blood erythrocytes automated count (number/volume) 4.35 10*6/uL 4.35-5.85 Venous blood hemoglobin measurement (mass/volume) 12.5 g/dL 13.3-17.7 Blood hematocrit (volume fraction) 35 % 40-54 Automated erythrocyte mean corpuscular volume 81 [foz_us] 80-99 Automated erythrocyte mean corpuscular hemoglobin (mass per erythrocyte) 29 pg 25-34 Automated erythrocyte mean corpuscular hemoglobin concentration measurement ( mass/volume) 35 g/dL 32-36 Automated erythrocyte distribution width ratio 13.2 % 10.0-14.5 Automated blood platelet count (count/volume) 279 10*3/uL 130-400 Automated blood platelet mean volume measurement 9.7 [foz_us] 7.4-10.4 Automated blood neutrophils/100 leukocytes 50 % 42-75 Automated blood lymphocytes/100 leukocytes 41 % 12-44 Blood monocytes/100 leukocytes 6 % 0-12 Automated blood eosinophils/100 leukocytes 2 % 0-10 Automated blood basophils/100 leukocytes 0 % 0-10 Blood neutrophils automated count (number/volume) 5.6 10*3 1.8-7.8 Blood lymphocytes automated count (number/volume) 4.6 10*3 1.0-4.0 Blood monocytes automated count (number/volume) 0.7 10*3 0.0-1.0 Automated eosinophil count 0.3 10*3/uL 0.0-0.3 Automated blood basophil count (count/volume) 0.0 10*3/uL 0.0-0.1 PT panel in platelet poor plasma by coagulation assay - 11/05/18 02:55 Prothrombin time (PT) in platelet poor plasma by coagulation assay 13.9 s 12.2-14.7 INR in platelet poor plasma or blood by coagulation assay 1.0 0.8-1.4 Activated partial thromboplastin time (aPTT) in platelet poor plasma bycoagulation assay - 11/05/18 02:55 Activated partial thromboplastin time (aPTT) in platelet poor plasma bycoagulation assay 29 s 24-35 Serum or plasma C reactive protein measurement (mass/volume) - 11/05/18 02:55 Serum or plasma C reactive protein measurement (mass/volume) 0.53 mg /dL 0.00-0.50 Comprehensive metabolic panel - 11/05/18 02:55 Serum or plasma sodium measurement (moles/volume) 137 mmol/L 135-145 Serum or plasma potassium measurement (moles/volume) 3.5 mmol/L 3.6-5.0 Serum or plasma chloride measurement (moles/volume) 103 mmol/L 98-107 Carbon dioxide 24 mmol/L 21-32 Serum or plasma anion gap determination (moles/volume) 10 mmol/L 5-14 Serum or plasma urea nitrogen measurement (mass/volume) 9 mg/dL 7-18 Serum or plasma creatinine measurement (mass/volume) 1.16 mg/dL 0.60-1.30 Serum or plasma urea nitrogen/creatinine mass ratio 8 NRG Serum or plasma creatinine measurement with calculation of estimated glomerular filtration rate > NRG Serum or plasma glucose measurement (mass/volume) 109 mg/dL 70-105 Serum or plasma calcium measurement (mass/volume) 8.7 mg/dL 8.5-10.1 Serum or plasma total bilirubin measurement (mass/volume) 0.3 mg/dL 0.1-1.0 Serum or plasma alkaline phosphatase measurement (enzymatic activity/volume) 67 U/L 40-136 Serum or plasma aspartate aminotransferase measurement (enzymatic activity/ volume) 11 U/L 5-34 Serum or plasma alanine aminotransferase measurement (enzymatic activity/volume ) 13 U/L 0-55 Serum or plasma protein measurement (mass/volume) 6.5 g/dL 6.4-8.2 Serum or plasma albumin measurement (mass/volume) 3.7 g/dL 3.2-4.5 CALCIUM CORRECTED 8.9 mg/dL 8.5-10.1 Magnesium - 11/05/18 02:55 Magnesium 2.0 mg/dL 1.8-2.4 Serum or plasma troponin i.cardiac measurement (mass/volume) - 11/05/18 02:55 Serum or plasma troponin i.cardiac measurement (mass/volume) < ng/ mL <0.028 Myoglobin, serum - 11/05/18 02:55 Myoglobin, serum 34.6 ng/mL 10.0-92.0 Encounters ACCT No. Visit Date/Time Discharge Status Pt. Type Provider Facility Loc./Unit Complaint [id number] 10/23/2018 16:12:00 10/23/2018 23:59:59 CLS Preadmit MARGARITO NOVA, JAMEEL Saini [facility] CARD CAD, CHEST PAIN SYNDROME , HYPERLIPIDEMIA [id number] 07/22/2018 04:32:00 07/22/2018 07:17:00 DIS Emergency SANDY NOVA, RAIN Ribeiro [facility] ER LACERATION [id number] 05/30/2018 11:00:00 05/30/2018 23:59:59 CLS Preadmit Marcia LYMAN MD [facility] CR PTCA [id number] 03/28/2018 11:16:00 05/29/2018 00:01:00 DIS Outpatient Marcia LYMAN MD [facility] CR PTCA [id number] 04/03/2018 00:11:00 04/03/2018 23:59:59 CLS Preadmit ASUNCION HDZ [facility] ONC [id number] 01/24/2018 09:51:00 04/02/2018 00:01:00 DIS Outpatient ASUNCION HDZ [facility] ONC [id number] 02/28/2018 06:38:00 02/28/2018 23:59:59 CLS Outpatient CHATO JOHNSON DO [facility] CARD CHRONIC GASTRITIS W/O BLEEDING [id number] 02/07/2018 21:25:00 02/08/2018 12:42:00 DIS Outpatient Marcia LYMAN MD [facility] ICU CHEST PAIN;HX OF CAD [id number] 02/06/2018 11:05:00 02/07/2018 10:45:00 DIS Outpatient Marcia LYMAN MD [facility] CATH ABNORMAL STRESS TEST,CHD ,CAD,HTN [id number] 01/29/2018 08:38:00 01/29/2018 23:59:59 CLS Outpatient JAMEEL PIMENTEL MD [facility] CARD CAD,CHEST PAIN SYNDROME, HTN [id number] 01/28/2018 10:49:00 01/28/2018 23:59:59 CLS Outpatient JAMEEL PIMENTEL MD [facility] CARD CAD,CHEST PAIN SYNDROME, HTN [id number] 07/03/2017 18:26:00 07/03/2017 20:34:00 DIS Emergency KATHY JOHNSON DO [facility] ER SUICIDAL [id number] 05/13/2017 10:15:00 05/13/2017 23:59:59 CLS Preadmit JAMEEL PIMENTEL MD [facility] CARD CAD I25.10 [id number] 05/07/2017 10:00:00 05/07/2017 23:59:59 CLS Preadmit JAMEEL PIMENTEL MD [facility] CARD I25.10 CAD [id number] 03/28/2017 14:04:00 03/28/2017 23:59:59 CLS Outpatient JUNIOR XIE MD [facility] RAD R19.7,R10.84 [id number] 02/25/2017 09:28:00 02/25/2017 12:45:00 DIS Outpatient MANOJ BAUMANN MD [facility] ENDO GERD [id number] 02/22/2017 05:56:00 02/22/2017 09:06:00 DIS Outpatient MANOJ BAUMANN MD [facility] PREOP COLONOSCOPY [id number] 02/07/2017 09:45:00 02/07/2017 23:59:59 CLS Preadmit JUNIOR XIE MD [facility] RAD GERNERALIZED ABD PAIN R10.84 [id number] 02/07/2017 08:58:00 02/07/2017 23:59:59 CLS Outpatient ROJAS NOVA, JUNIOR Molina [facility] RAD PROMINENT ABDOMINAL AORTIC PULSATION R06.89 [id number] 02/01/2017 18:24:00 02/01/2017 20:56:00 DIS Emergency SHA HOLDER MD [facility] ER STOMACH PAIN/ LIGHTHEADEDNESS [id number] 11/14/2016 11:00:00 11/14/2016 23:59:59 CLS Preadmit JAMEEL PIMENTEL MD [facility] CR STENT [id number] 09/21/2016 11:15:00 11/13/2016 00:01:00 DIS Outpatient JAMEEL PIMENTEL MD [facility] CR STENT [id number] 06/18/2016 14:42:00 06/18/2016 16:16:00 DIS 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[facility] ER PALPITATIONS NAUSEA [id number] 02/25/2016 23:11:00 02/29/2016 14:40:00 DIS Outpatient ANA LUISA NOVA FACCJT FACP CCDS [facility] CATH CHEST PAIN [id number] 12/14/2015 10:00:00 12/14/2015 23:59:59 CLS Preadmit JAMEEL PIMENTEL MD [facility] CR PTCA [id number];STABLE ANGINA [id number] 09/26/2015 11:59:00 12/13/2015 00:01:00 DIS Outpatient JAMEEL PIMENTEL MD [facility] CR PTCA [id number];STABLE ANGINA [id number] 09/09/2015 19:56:00 09/10/2015 06:40:00 DIS Outpatient MARY JON 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 [facility] SLEEP NARGIS [id number] 09/09/2015 12:03:00 09/09/2015 23:59:59 CLS Outpatient JAMEEL PIMENTEL MD [facility] CR PTCA [id number];STABLE ANGINA [id number] 08/31/2015 15:57:00 08/31/2015 17:10:00 DIS Emergency ERIC WALL APRN [facility] ER L EAR BLEEDING [id number] 07/24/2015 21:15:00 07/25/2015 06:25:00 DIS Outpatient JOSE GUADALUPE KENNEDY [facility] SLEEP ARRHYTHMIAS , HX STROKE, OBSTRUCTIVE SLEEP APNEA [id number] 07/08/2015 10:07:00 07/08/2015 11:55:00 DIS Emergency GARRETT NOVA, DEONTE Burkett [facility] ER COUGH/GAINING WEIGHT [id number] 04/25/2015 14:12:00 04/27/2015 11:55:00 DIS Inpatient MARGARITO NOVA, JAMEEL Saini [facility] CSD CHEST PAIN,CAD,CHRONIC LEUKOCYTOSIS [id number] 11/05/2018 03:12:00 Document Registration [id number] 10/19/2016 08:37:00 Document Registration [id number] 01/04/2017 08:06:00 Document Registration [id number] 06/20/2016 10:05:00 Document Registration [id number] 01/28/2017 14:09:00 Document Registration [id number] 02/05/2017 11:07:00 Document Registration [id number] 09/30/2018 09:20:00 09/30/2018 23:59:59 CLS Outpatient ROJAS NOVA, JUNIOR Molina [facility]
[2018-11-05] MEDS ORDERED: ACETAMINOPHEN 500 MG TAB (TYLENOL) PO ONE (04:30)
--- NOTE | 2018-11-05 05:59 | Diagnostic Imaging Report ---
PROCEDURE: CT head without contrast. TECHNIQUE: Multiple contiguous axial images were obtained through the brain without the use of intravenous contrast. Auto Exposure Controls were utilized during the CT exam to meet ALARA standards for radiation dose reduction. INDICATION: Dizziness. CT HEAD: Multiple contiguous axial CT images of the head were obtained. FINDINGS: Ventricles and sulci are within normal limits for size. There is no intracranial hemorrhage identified. There is no abnormal mass effect or shift of midline structures. Note is made of small mucous retention cyst or polyp in the anterior right maxillary sinus. There is atherosclerotic calcification of distal internal carotid and vertebral arteries. IMPRESSION: Unremarkable CT of the head. Dictated by: Dictated on workstation # [id number]
--- NOTE | 2018-11-05 06:22 | Diagnostic Imaging Report ---
INDICATION: Dizziness. Portable AP view of the chest is obtained with comparison made study of 02/07/2018. FINDINGS: Heart size and pulmonary vascularity are within normal limits, and the lungs are clear, bilaterally. IMPRESSION: Unremarkable chest. Dictated by: Dictated on workstation # [id number]
--- NOTE | 2018-11-05 07:19 | ED Syncope ---
General Chief Complaint: Dizziness/Syncope Stated Complaint: DIZZY Nursing Triage Note: TO ED [facility]IA [facility]. PT C/O LIGHTHEADEDNESS, H/A, NAUSEA, DIZZYINESS. STATES HE WENT TO [employer] TO WARM UP FOOD TO EAT AND FELT DIZZY SO HE SAT IN RECLINER AND PUT FEET UP BUT THEN FELT LIKE HE HAD TO HAVE BM, HE SAT DOWN ON TOILET AND CONTINUED TO FEEL DIZZY SO HE LAID DOWN ON THE FLOOR AND CRAWLED OUT OF BEDROOM. Source of Information: Patient, Old Records Exam Limitations: No Limitations History of Present Illness Date Seen by Provider: Nov 05, 2018 Time Seen by Provider: 02:51 Initial Comments This 48-year-old man presents to the emergency room via EMS with complaints of lightheadedness and near syncope. He lowered himself to the floor at his home because of lightheadedness. He then went to use the toilet and felt the same way. He again needed to lower himself to the floor. EMS notes his systolic blood pressure of 91. They initiated IV fluid therapy and after about 300 mL his blood pressure was in the 110s systolic. EKG was unremarkable for EMS. Patient has chronic chest pain for which she takes Ranexa. He presently rates his pain about 4 out of 10. He also complains of nausea and headache. Patient denies hitting his head and he does not believe he lost consciousness. He takes Xarelto and Plavix. He has a history of stroke and coronary artery disease status post CABG. His certified genetic counselor is Dr. Fitzgerald. His primary care providers Dr. Xie. Allergies and Home Medications Allergies Coded Allergies: prednisone (Verified Allergy, Intermediate, RASH, 04/23/15) hydrocodone (Verified Allergy, Unknown, 04/23/15) venom-honey bee (Verified Allergy, Unknown, 04/23/15) Home Medications Albuterol Sulfate Unknown Strength Hfa.aer.ad, 2 PUFF IH Q4H PRN for SHORTNESS OF BREATH, (Reported) Albuterol/Ipratropium 4 Gm Aero, 2 PUFF IH BID, (Reported) Amlodipine Besylate 5 Mg Tablet, 5 MG PO DAILY Prescribed by: JAMEEL FITZGERALD on 04/27/15 1038 Atorvastatin Calcium 80 Mg Tablet, 80 MG PO HS, (Reported) Baclofen 20 Mg Tablet, 20 MG PO TID PRN for SPASMS, (Reported) Buspirone HCl 10 Mg Tablet, 20 MG PO DAILY, (Reported) TAKE 2 (10 MG) TABLETS ONCE DAILY FOR A TOTAL OF 20 MG Clopidogrel Bisulfate 75 Mg Tablet, 75 MG PO DAILY Prescribed by: JOSE GUADALUPE SCHNEIDER on 02/29/16 1300 Duloxetine HCl 60 Mg Capsule.dr, 120 MG PO DAILY, (Reported) TAKE 2 (60 MG) TABLETS ONCE DAILY FOR A TOTAL OF 120 MG DOSE Ezetimibe 10 Mg Tablet, 10 MG PO DAILY, (Reported) Isosorbide Mononitrate 60 Mg Tab, 60 MG PO DAILY@0630 Prescribed by: JOSE GUADALUPE SCHNEIDER on 02/29/16 1300 Mag Hydrox/Al Hydrox/Simeth 30 Ml Oral.susp, 30 ML PO QID PRN for INDIGESTION Prescribed by: JOSE JAIN on 02/08/18 1251 Meclizine HCl 25 Mg Tablet, 25 MG PO QID PRN for DIZZINESS, (Reported) Metoprolol Succinate 50 Mg Tab.er.24h, 50 MG PO Q12H, (Reported) Nitroglycerin 0.4 Mg Tab.subl, 0.4 MG SL for CHEST PAIN, (Reported) Pantoprazole Sodium 40 Mg Tablet.dr, 40 MG PO DAILY, (Reported) Prasugrel HCl 10 Mg Tablet, 10 MG PO DAILY, (Reported) Promethazine HCl 25 Mg Tablet, 25 MG PO Q4H PRN for NAUSEA/VOMITING, (Reported) Ranolazine 1,000 Mg Tab.er.12h, 1,000 MG PO BID, (Reported) Rifaximin 550 Mg Tablet, 550 MG PO DAILY, (Reported) Rivaroxaban 20 Mg Tablet, 20 MG PO DAILY, (Reported) Patient Home Medication List Home Medication List Reviewed: Yes Review of Systems Constitutional: see HPI EENTM: no symptoms reported Respiratory: no symptoms reported Cardiovascular: see HPI Gastrointestinal: see HPI Genitourinary: no symptoms reported Musculoskeletal: no symptoms reported Skin: no symptoms reported Psychiatric/Neurological: See HPI Past Dwimvly-Renibt-Xhwbed Hx Past Med/Social Hx: Reviewed and Corrections made Patient Social History Alcohol Use: Denies Use Number of Drinks Today: AA Alcohol Beverage of Choice: Beer Drug of Choice: MARIJUANA Smoking Status: Former Smoker Type Used: Cigarettes Former Smoker, Quit: Feb 07, 2000 2nd Hand Smoke Exposure: No Recent Foreign Travel: No Contact w/Someone Who Travel: No Recent Infectious Disease Expo: No Recent Hopitalizations: No Immunizations Up To Date Tetanus Booster (TDap): Unknown PED Vaccines UTD: No Seasonal Allergies Seasonal Allergies: Yes Past Medical History Surgeries: Yes Cardiac, CABG, Coronary Stent, Orthopedic Respiratory: Yes Chronic Bronchitis, Sleep Apnea, COPD Currently Using CPAP: No (OWNS CPAP, NONCOMPLIANT ) Currently Using BIPAP: No Cardiac: Yes (A FLUTTER; 5-VESSEL CABG, MULTIPLE CATHS/ANGIOPLASTIES/STENTS X 6 ; CHF) Atrial Fibrillation (paroxysmal), Coronary Artery Disease, High Cholesterol, Hypertension, Peripheral Vascular Neurological: Yes (CVA--CEREBELLAR WITH SOME PROBLEMS WITH BALANCE AND SHORT TERM MEMORY ) Stroke, TIA Reproductive Disorders: No Sexually Transmitted Disease: No HIV/AIDS: No Genitourinary: No Gastrointestinal: Yes Gastroesophageal Reflux, Chronic Diarrhea, Ulcer Musculoskeletal: Yes (SCIATICA) Chronic Back Pain, Spasms Endocrine: Yes (Borderline DM) Diabetes, Non-Insulin dep HEENT: Yes Eye Injury, Double Vision Loss of Vision: Right Hearing Impairment: Denies Cancer: No Psychosocial: Yes (OCD; INTENTIONAL OVERDOSE/SUICIDE ATTEMPT 06/2017) Sleep Difficulties, Anxiety, Suicide Attempts, Depression Integumentary: No Blood Disorders: Yes (B12 deficiency anemia) Adverse Reaction/Blood Tranf: No (N/A) Family Medical History Brain cancer 19 FATHER Congestive heart failure 19 MOTHER Coronary artery disease 19 FATHER Diabetes mellitus 19 MOTHER Heart attack 19 FATHER 19 MOTHER Hypertension 19 FATHER 19 MOTHER Lung cancer 19 FATHER Heart Disease, Cancer, Diabetes Physical Exam Vital Signs Vital Signs - First Documented 11/05/18 11/05/18 02:52 07:43 Temp 97.6 Pulse 72 Resp 18 B/P (MAP) 82/51 (61) Pulse Ox 93 Capillary Refill : Less Than 3 Seconds Height, Weight, BMI Height: 6'1.00" Weight: 280lbs. 0oz. 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, sap manager II-XII Norm as Tested Cranial Nerves: Normal Hearing, Normal Speech Motor/Sensory: No Motor Deficit, No Sensory Deficit Skin: Normal Color, Warm/Dry Procedures/Interventions Suture Size: 4-0 Progress/Results/Core Measures Results/Orders Lab Results Laboratory Tests Test 11/05/18 02:55 11/05/18 06:30 Range/Units White Blood Count 11.2 H 4.3-11.0 10^3/uL Red Blood Count 4.35 4.35-5.85 10^6/uL Hemoglobin 12.5 L 13.3-17.7 G/DL Hematocrit 35 L 40-54 % Mean Corpuscular Volume 81 80-99 FL Mean Corpuscular Hemoglobin 29 25-34 PG Mean Corpuscular Hemoglobin Concent 35 32-36 G/DL Red Cell Distribution Width 13.2 10.0-14.5 % Platelet Count 279 130-400 10^3/uL Mean Platelet Volume 9.7 7.4-10.4 FL Neutrophils (%) (Auto) 50 42-75 % Lymphocytes (%) (Auto) 41 12-44 % Monocytes (%) (Auto) 6 0-12 % Eosinophils (%) (Auto) 2 0-10 % Basophils (%) (Auto) 0 0-10 % Neutrophils # (Auto) 5.6 1.8-7.8 X 10^3 Lymphocytes # (Auto) 4.6 H 1.0-4.0 X 10^3 Monocytes # (Auto) 0.7 0.0-1.0 X 10^3 Eosinophils # (Auto) 0.3 0.0-0.3 10^3/uL Basophils # (Auto) 0.0 0.0-0.1 10^3/uL Prothrombin Time 13.9 12.2-14.7 SEC INR Comment 1.0 0.8-1.4 Activated Partial Thromboplast Time 29 24-35 SEC Sodium Level 137 135-145 MMOL/L Potassium Level 3.5 L 3.6-5.0 MMOL/L Chloride Level 103 98-107 MMOL/L Carbon Dioxide Level 24 21-32 MMOL/L Anion Gap 10 5-14 MMOL/L Blood Urea Nitrogen 9 7-18 MG/DL Creatinine 1.16 0.60-1.30 MG/DL Estimat Glomerular Filtration Rate > 60 BUN/Creatinine Ratio 8 Glucose Level 109 H 70-105 MG/DL Calcium Level 8.7 8.5-10.1 MG/DL Corrected Calcium 8.9 8.5-10.1 MG/DL Magnesium Level 2.0 1.8-2.4 MG/DL Total Bilirubin 0.3 0.1-1.0 MG/DL Aspartate Amino Transf (AST/SGOT) 11 5-34 U/L Alanine Aminotransferase (ALT/SGPT) 13 0-55 U/L Alkaline Phosphatase 67 40-136 U/L Myoglobin 34.6 10.0-92.0 NG/ML Troponin I < 0.028 < 0.028 <0.028 NG/ML C-Reactive Protein High Sensitivity 0.53 H 0.00-0.50 MG/DL Total Protein 6.5 6.4-8.2 GM/DL Albumin 3.7 3.2-4.5 GM/DL My Orders Orders - RAIN DELGADO MD Cbc With Automated Diff (11/05/18 03:02) Magnesium (11/05/18 03:02) Chest 1 View, Ap/Pa Only (11/05/18 03:02) Ekg Tracing (11/05/18 03:02) Cardiac Profile 1 (11/05/18 03:02) Comprehensive Metabolic Panel (11/05/18 03:02) Myoglobin Serum (11/05/18 03:02) Protime With Inr (11/05/18 03:02) Partial Thromboplastin Time (11/05/18 03:02) O2 (11/05/18 03:02) Monitor-Rhythm Ecg Trace Only (11/05/18 03:02) Saline Lock/Iv-Start (11/05/18 03:02) Ct Head Wo (11/05/18 03:02) Ns Iv 1000 Ml (Sodium Chloride 0.9%) (11/05/18 03:04) Ondansetron Injection (Zofran Injectio (11/05/18 03:15) Hs C Reactive Protein (11/05/18 03:10) Ns Iv 1000 Ml (Sodium Chloride 0.9%) (11/05/18 04:19) Acetaminophen Tablet (Tylenol Tablet) (11/05/18 04:30) Troponin I (11/05/18 06:05) Medications Given in ED Current Medications Medications Dose Ordered Sig/Colette Route Start Time Stop Time Status Last Admin Dose Admin Acetaminophen 1,000 mg ONCE ONCE PO 11/05/18 04:30 11/05/18 04:31 DC 11/05/18 04:39 1,000 MG Ondansetron HCl 8 mg ONCE ONCE IVP 11/05/18 03:15 11/05/18 03:16 DC 11/05/18 03:15 8 MG Sodium Chloride 1,000 ml @ 0 mls/hr Q0M ONCE IV 11/05/18 03:04 11/05/18 03:05 DC 11/05/18 03:15 999 MLS/HR Sodium Chloride 1,000 ml @ 0 mls/hr Q0M ONCE IV 11/05/18 04:19 11/05/18 04:21 DC 11/05/18 04:39 999 MLS/HR Vital Signs/I&O 11/05/18 11/05/18 02:52 07:43 Temp 97.6 Pulse 72 71 Resp 18 18 B/P (MAP) 82/51 (61) 129/83 (98) Pulse Ox 93 Blood Pressure Mean: 61 Progress Progress Note : Time: 07:20 Progress Note Patient received 3 L of IV fluids. After 2 L his blood pressure normalized but then dropped again. He is now sustaining blood pressure above 90 systolic after a third liter of IV fluid. His headache has improved and he is less nauseated now. His standing blood pressure was 97/74 with a heart rate of 91. He did not feel dizzy with standing. Workup was relatively unremarkable. A repeat troponin was negative. The exact cause of his hypotension is uncertain. However, he does take multiple medications that could cause hypotension if not take them properly. An accidental duplicate dose of any of these medications could've caused hypotension. Patient does have a history of psychiatric problems and suicidal ideation. However, he adamantly denies suicidal ideation or intent today. CT of the head was obtained due to patient' s report of headache and use of anticoagulants. There is no acute abnormality on the CT. Patient states his chest pain this morning is really unchanged from his chronic state. Initial ECG Impression Date: Nov 05, 2018 Initial ECG Impression Time: 02:59 Initial ECG Rate: 68 Initial ECG Rhythm: Normal Sinus Initial ECG Intervals: Normal Comment Normal sinus rhythm with no ST elevation or depression. T-wave inversions are unchanged from prior. No abnormal intervals or axis deviation. Diagnostic Imaging Diagonstic Imaging: CT Plain Films/CT/US/NM/MRI: head Comments CT head viewed by me and report reviewed. See report below: NAME: OMAR CHATTERJEE [facility] REC#: [id number] PT STATUS: REG ER : 1970 PHYSICIAN: RAIN DELGADO MD ADMIT DATE: 11/05/18/ER Draft Date of Exam:11/05/18 CT HEAD WO PROCEDURE: CT head without contrast. TECHNIQUE: Multiple contiguous axial images were obtained through the brain without the use of intravenous contrast. Auto Exposure Controls were utilized during the CT exam to meet ALARA standards for radiation dose reduction. INDICATION: Dizziness. CT HEAD: Multiple contiguous axial CT images of the head were obtained. FINDINGS: Ventricles and sulci are within normal limits for size. There is no intracranial hemorrhage identified. There is no abnormal mass effect or shift of midline structures. Note is made of small mucous retention cyst or polyp in the anterior right maxillary sinus. There is atherosclerotic calcification of distal internal carotid and vertebral arteries. IMPRESSION: Unremarkable CT of the head. Dictated on workstation # [id number] Dict: 11/05/18 0553 Trans: 11/05/18 0559 [id number] Interpreted by: FRANCISCO VALENTIN MD Diagonstic Imaging: Xray Plain Films/CT/US/NM/MRI: chest Comments Chest x-ray viewed by me and report reviewed. See report below: NAME: OMAR CHATTERJEE [facility] REC#: [id number] PT STATUS: REG ER : 1970 PHYSICIAN: RAIN DELGADO MD ADMIT DATE: 11/05/18/ER Draft Date of Exam:11/05/18 CHEST 1 VIEW, AP/PA ONLY INDICATION: Dizziness. Portable AP view of the chest is obtained with comparison made study of 02/07/2018. FINDINGS: Heart size and pulmonary vascularity are within normal limits, and the lungs are clear, bilaterally. IMPRESSION: Unremarkable chest. Dictated on workstation # [id number] Dict: 11/05/18 0616 Trans: 11/05/18 0621 [id number] Interpreted by: FRANCISCO VALENTIN MD Departure Impression Primary Impression: Hypotension Qualified Codes: I95.9 - Hypotension, unspecified Additional Impressions: Lightheadedness Chronic chest pain Acute headache Qualified Codes: R51 - Headache Disposition: 01 HOME, SELF-CARE Condition: Improved Departure-Patient Inst. Decision time for Depature: 07:33 Referrals: JUNIOR XIE MD (PCP/Family) Primary Care Physician Patient Instructions: Chest Pain (DC) Add. Discharge Instructions: Drink plenty of clear liquids throughout the day today. Avoid strenuous activity today. Stop amlodipine (Norvasc). Follow-up with Dr. Fitzgerald tomorrow in the office. Call his office this morning for an appointment time. Return to care if you have worsening symptoms again. All discharge instructions reviewed with patient and/or family. Voiced understanding. Copy Copies To 1: JAMEEL FITZGERALD MD Copies To 2: JUNIOR XIE MD, JOSHUA T MD Nov 05, 2018 07:19
[2018-11-05 07:43] VITALS: BP 129/83
== END 2018-11-05 07:43 | disposition home or self-care (01) ==
LOC: EDUNIT# 02:50 → ER 02:52
DX: I95.9 Hypotension, unspecified (principal); R42 Dizziness and giddiness; R07.9 Chest pain, unspecified; G89.29 Other chronic pain; R51 Headache; G47.30 Sleep apnea, unspecified; J44.9 Chronic obstructive pulmonary disease, unspecified; I48.0 Paroxysmal atrial fibrillation; I11.0 Hypertensive heart disease with heart failure; I50.9 Heart failure, unspecified; E78.00 Pure hypercholesterolemia, unspecified; E11.51 Type 2 diabetes mellitus with diabetic peripheral angiopathy without gangrene; I73.9 Peripheral vascular disease, unspecified; F41.9 Anxiety disorder, unspecified; F32.9 Major depressive disorder, single episode, unspecified; K21.9 Gastro-esophageal reflux disease without esophagitis; F42.9 Obsessive-compulsive disorder, unspecified; I25.10 Atherosclerotic heart disease of native coronary artery without angina pectoris; Z86.73 Personal history of transient ischemic attack (TIA), and cerebral infarction without residual deficits; Z82.49 Family history of ischemic heart disease and other diseases of the circulatory system; Z80.1 Family history of malignant neoplasm of trachea, bronchus and lung; Z91.5 Personal history of self-harm; Z79.01 Long term (current) use of anticoagulants; Z79.02 Long term (current) use of antithrombotics/antiplatelets; Z95.1 Presence of aortocoronary bypass graft; Z79.52 Long term (current) use of systemic steroids; Z88.5 Allergy status to narcotic agent; Z79.51 Long term (current) use of inhaled steroids; Z87.891 Personal history of nicotine dependence; Z95.5 Presence of coronary angioplasty implant and graft
CPT/HCPCS: 36415; 70450; 71045; 80053; 83735; 83874; 84484; 85025; 85610; 85730; 86141; 93005; 93041; 96361; 96374

== ENCOUNTER → 2018-11-26 | Outpatient (CLI) | payer MEDICARE, MEDICAID ==
[~2018-11-26] MED LIST changes: +CATHETER FLUSH 10 ML SYR IV PRN; +REGADENOSON 0.4 MG/5 ML SYR (LEXISCAN) IV ONE
[2018-11-26 09:10] VITALS: BP 132/80
[2018-11-26 09:17] VITALS: BP 146/93
--- NOTE | 2018-11-27 02:43 | STRESS TEST ---
DATE OF SERVICE: 11/26/2018 LEXISCAN MYOVIEW STRESS TEST REPORT REFERRING PHYSICIAN: Marta Lauren MD, [facility][1]. Baseline heart rate is 88 baseline blood pressure 132/80. Baseline EKG is sinus rhythm with occasional PVCs. SUMMARY: The patient was injected with 10.48 mCi of technetium-99 Myoview and the resting images were obtained. Then, the patient received 0.4 mg of Lexiscan followed by 29.1 mCi of technetium-99 Myoview. Throughout the test, there were no EKG changes. The resting and stress images were reviewed and compared in the short axis, horizontal long axis, and vertical long axis views. Review of the images showed reversible ischemia involving the whole anterolateral and inferolateral wall and true apex. SSS is 20, SDS 10, TID value 1.17. On the gated images, the left ventricle appeared to be in normal size with hypokinesia at the anterior wall, anterolateral wall, anterior apex. Calculated ejection fraction 42%. CONCLUSION: 1. The patient tolerated Lexiscan well. 2. Reversible ischemia involving the whole anterolateral and inferolateral wall and a reversible ischemia involving the apex. 3. Normal left ventricular size with hypokinesia at the anterior wall, anterior apex and lateral wall. Calculated ejection fraction 42%. Job ID: [id number] DocumentID: [id number] Dictated Date: 11/26/2018 20:53:48 Crew Attendant Date: 11/27/2018 02:42:02 Dictated By: JAMEEL PIMENTEL MD
== END ==
LOC: CARD 07:18
PROVIDERS: ATTEND Internal Medicine Cardiovascular Disease
DX: I25.10 Atherosclerotic heart disease of native coronary artery without angina pectoris (principal); E78.2 Mixed hyperlipidemia; I10 Essential (primary) hypertension; R07.89 Other chest pain
CPT/HCPCS: 78452; 93017

== ENCOUNTER 2018-12-03 11:53 | Day surgery (SDC) | payer MEDICARE, MEDICAID ==
[~2018-12-03] VITALS: Ht 185.4 cm; Wt 127.0 kg
[2018-12-03] VITALS (15 sets, daily range): BP systolic 120–166; BP diastolic 76–104
[~2018-12-03 11:53] MED LIST changes: -CATHETER FLUSH 10 ML SYR IV PRN; -REGADENOSON 0.4 MG/5 ML SYR (LEXISCAN) IV ONE
--- OUTSIDE RECORDS SUMMARY | 2018-12-03 12:07 | XMS REPORT | Continuity of Care Document ---
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 DELGADO MD, Ot Z79.51 ASSISTED (CURRENT) USE OF INHALED STERO 07/22/2018 RAIN [...] Z88.8 ALLERGY STATUS TO OTH DRUG/MEDS/BIOL SUB 07/22/2018 RAIN DELGADO MD, Ot [...] E78.00 PURE HYPERCHOLESTEROLEMIA, UNSPECIFIED 07/24/2018 RAIN DELGADO MD, Ot F32.9 MAJOR DEPRESSIVE DISORDER, SINGLE EPISOD 07/24/2018 RAIN DELGADO MD, Ot F41.9 ANXIETY DISORDER, UNSPECIFIED 07/24/2018 RAIN DELGADO MD, Ot G47.30 SLEEP APNEA, UNSPECIFIED 07/24/2018 RAIN DELGADO MD Ot I11.0 HYPERTENSIVE HEART DISEASE WITH HEART FA 07/24/2018 RAIN DELGADO MD, Ot I25.10 ATHSCL HEART DISEASE OF [place] CORONARY 07/24/2018 RAIN DELGADO MD Ot I48.91 UNSPECIFIED ATRIAL FIBRILLATION 07/24/2018 RAIN DELGADO MD, Ot I50.9 HEART FAILURE, UNSPECIFIED 07/24/2018 RAIN DELGADO MD, Ot I73.9 PERIPHERAL VASCULAR DISEASE, UNSPECIFIED 07/24/2018 RAIN DELGADO MD, Ot J44.9 CHRONIC OBSTRUCTIVE PULMONARY DISEASE, U 07/24/2018 RAIN DELGADO MD, Ot K21.9 GASTRO-ESOPHAGEAL REFLUX DISEASE WITHOUT 07/24/2018 RAIN DELGADO MD, Ot R45.851 SUICIDAL IDEATIONS 07/24/2018 RAIN DELGADO MD, Ot S51.812A LACERATION WITHOUT FOREIGN BODY OF LEFT 07/24/2018 RAIN DELGADO MD, Ot X78.1XXA INTENTIONAL SELF-HARM BY KNIFE, INITIAL 07/24/2018 RAIN DELGADO MD, Ot Z23 ENCOUNTER FOR IMMUNIZATION 07/24/2018 RAIN DELGADO MD, Ot Z79.01 FOOD PREPARATION KITCHEN AIDE (CURRENT) USE OF ANTICOAGULANT 07/24/2018 RAIN DELGADO MD, Ot Z79.02 FOOD PREPARATION KITCHEN AIDE (CURRENT) USE OF ANTITHROMBOTI 07/24/2018 RAIN DELGADO MD, Ot Z79.51 FOOD PREPARATION KITCHEN AIDE (CURRENT) USE OF INHALED STERO 07/24/2018 RAIN [...] Z88.8 ALLERGY STATUS TO OT DRUG/MEDS/BIOL SUB 07/24/2018 RAIN DELGADO MD, Ot Z91.19 PATIENT'S NONCOMPLIANCE W OTH MEDICAL TR 07/24/2018 RAIN DELGADO MD, Ot Z91.5 PERSONAL HISTORY OF SELF-HARM 07/24/2018 RAIN DELGADO MD, Ot Z95.1 PRESENCE OF AORTOCORONARY BYPASS GRAFT 07/24/2018 RAIN DELGADO MD, Ot Z95.5 PRESENCE OF CORONARY ANGIOPLASTY IMPLANT 07/28/2018 RAIN DELGADO MD Ot E11.59 TYPE 2 DIABETES MELLITUS WITH OTH CIRCUL 07/28/2018 RAIN DELGADO MD, Ot E78.00 PURE HYPERCHOLESTEROLEMIA, UNSPECIFIED 07/28/2018 RAIN DELGADO MD, Ot F32.9 MAJOR DEPRESSIVE DISORDER, SINGLE EPISOD 07/28/2018 RAIN DELGADO MD, Ot F41.9 ANXIETY DISORDER, UNSPECIFIED 07/28/2018 RAIN DELGADO MD, Ot G47.30 SLEEP APNEA, UNSPECIFIED 07/28/2018 RAIN DELGADO MD, Ot I11.0 HYPERTENSIVE HEART DISEASE WITH HEART FA 07/28/2018 RAIN DELGADO MD, Ot I25.10 ATHSCL HEART DISEASE OF [place] CORONARY 07/28/2018 RAIN DELGADO MD, Ot I48.91 UNSPECIFIED ATRIAL FIBRILLATION 07/28/2018 RAIN DELGADO MD, Ot I50.9 HEART FAILURE, UNSPECIFIED 07/28/2018 RAIN DELGADO MD, Ot I73.9 PERIPHERAL VASCULAR DISEASE, UNSPECIFIED 07/28/2018 RAIN DELGADO MD, Ot J44.9 CHRONIC OBSTRUCTIVE PULMONARY DISEASE, U 07/28/2018 RAIN DELGADO MD, Ot K21.9 GASTRO-ESOPHAGEAL REFLUX DISEASE WITHOUT 07/28/2018 RAIN DELGADO MD, Ot R45.851 SUICIDAL IDEATIONS 07/28/2018 RAIN DELGADO MD, Ot S51.812A LACERATION WITHOUT FOREIGN BODY OF LEFT 07/28/2018 RAIN DELGADO MD, Ot X78.1XXA INTENTIONAL SELF-HARM BY KNIFE, INITIAL 07/28/2018 RAIN DELGADO MD Ot Z23 ENCOUNTER FOR IMMUNIZATION 07/28/2018 RAIN DELGADO MD, Ot Z79.01 ASSISTED (CURRENT) USE OF ANTICOAGULANT 07/28/2018 RAIN DELGADO MD, Ot Z79.02 FOOD PREPARATION KITCHEN AIDE (CURRENT) USE OF ANTITHROMBOTI 07/28/2018 RAIN DELGADO MD, Ot Z79.51 ASSISTED (CURRENT) USE OF INHALED STERO 07/28/2018 RAIN [...] Z91.19 PATIENT'S NONCOMPLIANCE W OT MEDICAL TR 07/28/2018 RAIN DELGADO MD, Ot Z91.5 PERSONAL HISTORY OF SELF-HARM 07/28/2018 RAIN DELGADO MD, Ot Z95.1 PRESENCE OF AORTOCORONARY BYPASS GRAFT 07/28/2018 RAIN DELGADO MD, Ot Z95.5 PRESENCE OF CORONARY ANGIOPLASTY IMPLANT 07/31/2018 JUNIOR XIE MD Ot I25.10 ATHSCL HEART DISEASE OF [place] CORONARY 07/31/2018 JUNIOR XIE MD Ot N20.0 CALCULUS OF KIDNEY 07/31/2018 JUNIOR XIE MD Ot R10.84 GENERALIZED ABDOMINAL PAIN 07/31/2018 JUNIOR XIE MD Ot R19.7 DIARRHEA, UNSPECIFIED 09/18/2018 JUNIOR XIE MD Ot I25.10 ATHSCL HEART DISEASE OF [place] CORONARY 09/18/2018 JUNIOR XIE MD Ot N20.0 CALCULUS OF KIDNEY 09/18/2018 JUNIOR XIE MD Ot R10.84 GENERALIZED ABDOMINAL PAIN 09/18/2018 JUNIOR XIE MD Ot R19.7 DIARRHEA, UNSPECIFIED 11/07/2018 RAIN DELGADO MD Ot E11.51 TYPE 2 DIABETES W DIABETIC PERIPHERAL AN 11/07/2018 RAIN DELGADO MD Ot E78.00 PURE HYPERCHOLESTEROLEMIA, UNSPECIFIED 11/07/2018 RAIN DELGADO MD Ot F32.9 MAJOR DEPRESSIVE DISORDER, SINGLE EPISOD 11/07/2018 RAIN DELGADO MD Ot F41.9 ANXIETY DISORDER, UNSPECIFIED 11/07/2018 RAIN DELGADO MD, Ot F42.9 OBSESSIVE-COMPULSIVE DISORDER, UNSPECIFI 11/07/2018 RAIN DELGADO MD Ot G47.30 SLEEP APNEA, UNSPECIFIED 11/07/2018 RAIN DELGADO MD, Ot G89.29 OTHER CHRONIC PAIN 11/07/2018 RAIN DELGADO MD Ot I11.0 HYPERTENSIVE HEART DISEASE WITH HEART FA 11/07/2018 RAIN DELGADO MD, Ot I25.10 ATHSCL HEART DISEASE OF [place] CORONARY 11/07/2018 RAIN DELGADO MD, Ot I48.0 PAROXYSMAL ATRIAL FIBRILLATION 11/07/2018 RAIN DELGADO MD, Ot I50.9 HEART FAILURE, UNSPECIFIED 11/07/2018 RAIN DELGADO MD, Ot I73.9 PERIPHERAL VASCULAR DISEASE, UNSPECIFIED 11/07/2018 RAIN DELGADO MD, Ot I95.9 HYPOTENSION, UNSPECIFIED 11/07/2018 RAIN DELGADO MD, Ot J44.9 CHRONIC OBSTRUCTIVE PULMONARY DISEASE, U 11/07/2018 RAIN DELGADO MD, Ot K21.9 GASTRO-ESOPHAGEAL REFLUX DISEASE WITHOUT 11/07/2018 RAIN DELGADO MD Ot R07.9 CHEST PAIN, UNSPECIFIED 11/07/2018 ARIN DELGADO MD Ot R42 DIZZINESS AND GIDDINESS 11/07/2018 RAIN DELGADO MD, Ot R51 HEADACHE 11/07/2018 RAIN DELGADO MD, Ot Z79.01 FOOD PREPARATION KITCHEN AIDE (CURRENT) USE OF ANTICOAGULANT 11/07/2018 RAIN DELGADO MD, Ot Z79.02 FOOD PREPARATION KITCHEN AIDE (CURRENT) USE OF ANTITHROMBOTI 11/07/2018 RAIN DELGADO MD Ot Z79.51 ASSISTED (CURRENT) USE OF INHALED STERO 11/07/2018 RAIN DELGADO MD, Ot Z79.52 ASSISTED (CURRENT) USE OF SYSTEMIC STER 11/07/2018 RAIN DELGADO MD, Ot Z80.1 FAMILY HISTORY OF MALIG NEOPLASM OF TRAC 11/07/2018 RAIN DELGADO MD, Ot Z82.49 FAMILY HX OF ISCHEM HEART DIS AND OTH DI 11/07/2018 RAIN DELGADO MD, Ot Z86.73 PRSNL HX OF TIA (TIA), AND CEREB INFRC W 11/07/2018 RAIN DELGADO MD, Ot Z87.891 PERSONAL HISTORY OF NICOTINE DEPENDENCE 11/07/2018 RAIN DELGADO MD, Ot Z88.5 ALLERGY STATUS TO NARCOTIC AGENT STATUS 11/07/2018 RAIN DELGADO MD, Ot Z91.5 PERSONAL HISTORY OF SELF-HARM 11/07/2018 RAIN DELGADO MD, Ot Z95.1 PRESENCE OF AORTOCORONARY BYPASS GRAFT 11/07/2018 RAIN DELGADO MD, Ot Z95.5 PRESENCE OF [...] 06/18/16 15:00 Myoglobin, serum 22.6 ng/mL 10.0-92.0 Complete blood count (CBC) with [...] 11/05/18 02:55 Myoglobin, serum 34.6 ng/mL 10.0-92.0 Serum or plasma troponin i.cardiac measurement (mass/volume) - 11/05/18 06:30 Serum or plasma troponin i.cardiac measurement (mass/volume) < ng/ mL <0.028 Encounters ACCT No. Visit Date/Time Discharge Status Pt. Type Provider Facility Loc./Unit Complaint [id number] 11/25/2018 13:20:00 11/25/2018 23:59:59 CLS Outpatient ROJAS NOVA, JUNIOR Molina [facility] [id number] 11/26/2018 07:18:00 11/26/2018 23:59:59 CLS Outpatient JAMEEL PIMENTEL MD [facility] CARD CAD, CHEST PAIN SYNDROME , HYPERLIPIDEMIA [id number] 11/05/2018 02:52:00 11/05/2018 07:43:00 DIS Outpatient RAIN DELGADO MD [facility] ER DIZZY [id number] 07/22/2018 04:32:00 07/22/2018 07:17:00 DIS Emergency SANDY NOVA, RAIN T [facility] ER LACERATION [id number] 05/30/2018 11:00:00 05/30/2018 23:59:59 CLS Preadmit Marcia LYMAN MD [facility] CR PTCA [id number] 03/28/2018 11:16:00 05/29/2018 00:01:00 DIS Outpatient Marcia LYMAN MD [facility] CR PTCA [id number] 04/03/2018 00:11:00 04/03/2018 23:59:59 CLS Preadmit ASUNCION HDZ [facility] ONC [id number] 01/24/2018 09:51:00 04/02/2018 00:01:00 DIS Outpatient ASUNCION HDZ [facility] ONC [id number] 02/28/2018 06:38:00 02/28/2018 23:59:59 CLS Outpatient CHATO JOHNSON DO [facility] CARD CHRONIC GASTRITIS W/O BLEEDING [id number] 02/07/2018 21:25:00 02/08/2018 12:42:00 DIS Outpatient Marcia LYMAN MD [facility] ICU CHEST PAIN;HX OF CAD [id number] 02/06/2018 11:05:00 02/07/2018 10:45:00 DIS Outpatient Marcia LYMAN MD [facility] CATH ABNORMAL STRESS TEST,CHD ,CAD,HTN [id number] 01/29/2018 08:38:00 01/29/2018 23:59:59 CLS Outpatient JAMEEL PIMENTEL MD [facility] CARD CAD,CHEST PAIN SYNDROME, HTN [id number] 01/28/2018 10:49:00 01/28/2018 23:59:59 CLS Outpatient JAMEEL PIMENTEL MD [facility] CARD CAD,CHEST PAIN SYNDROME, HTN [id number] 07/03/2017 18:26:00 07/03/2017 20:34:00 DIS Emergency KATHY JOHNSON DO [facility] ER SUICIDAL [id number] 05/13/2017 10:15:00 05/13/2017 23:59:59 CLS Preadmit JAMEEL PIMENTEL MD [facility] CARD CAD I25.10 [id number] 05/07/2017 10:00:00 05/07/2017 23:59:59 CLS Preadmit JAMEEL PIMENTEL MD [facility] CARD I25.10 CAD [id number] 03/28/2017 14:04:00 03/28/2017 23:59:59 CLS Outpatient JUNIOR XIE MD [facility] RAD R19.7,R10.84 [id number] 02/25/2017 09:28:00 02/25/2017 12:45:00 DIS Outpatient MANOJ BAUMANN MD [facility] ENDO GERD [id number] 02/22/2017 05:56:00 02/22/2017 09:06:00 DIS Outpatient MANOJ BAUMANN MD [facility] PREOP COLONOSCOPY [id number] 02/07/2017 09:45:00 02/07/2017 23:59:59 CLS Preadmit JUNIOR XIE MD [facility] RAD GERNERALIZED ABD PAIN R10.84 [id number] 02/07/2017 08:58:00 02/07/2017 23:59:59 CLS Outpatient JUNIOR XIE MD [facility] RAD PROMINENT ABDOMINAL AORTIC PULSATION R06.89 [id number] 02/01/2017 18:24:00 02/01/2017 20:56:00 DIS Emergency SHA HOLDER MD [facility] ER STOMACH PAIN/ LIGHTHEADEDNESS [id number] 11/14/2016 11:00:00 11/14/2016 23:59:59 CLS Preadmit JAMEEL PIMENTEL MD [facility] CR STENT [id number] 09/21/2016 11:15:00 11/13/2016 00:01:00 DIS Outpatient JAMEEL PIMENTEL MD [facility] CR STENT [id number] 06/18/2016 14:42:00 06/18/2016 16:16:00 DIS Emergency ERIC WALL [employer] FABRICATOR [facility] ER PALPITATIONS NAUSEA [id number] 02/25/2016 23:11:00 02/29/2016 14:40:00 DIS Outpatient ANA LUISA NOVA FACCJT FACP CCDS [facility] CATH CHEST PAIN [id number] 12/14/2015 10:00:00 12/14/2015 23:59:59 CLS Preadmit JAMEEL PIMENTEL MD [facility] CR PTCA [id number];STABLE ANGINA [id number] 09/26/2015 11:59:00 12/13/2015 00:01:00 DIS Outpatient JAMEEL PIMENTEL MD [facility] CR PTCA [id number];STABLE ANGINA [id number] 09/09/2015 19:56:00 09/10/2015 06:40:00 DIS Outpatient MARY JON [employer] [facility] SLEEP NARGIS [id number] 09/09/2015 12:03:00 09/09/2015 23:59:59 CLS Outpatient JAMEEL PIMENTEL MD [facility] CR PTCA [id number];STABLE ANGINA [id number] 08/31/2015 15:57:00 08/31/2015 17:10:00 DIS Emergency ERIC [employer] FABRICATOR [facility] ER L EAR BLEEDING [id number] 07/24/2015 21:15:00 07/25/2015 06:25:00 DIS Outpatient JOSE GUADALUPE KENNEDY [facility] SLEEP ARRHYTHMIAS , HX STROKE, OBSTRUCTIVE SLEEP APNEA [id number] 07/08/2015 10:07:00 07/08/2015 11:55:00 DIS Emergency DEONTE TUCKER MD [facility] ER COUGH/GAINING WEIGHT [id number] 04/25/2015 14:12:00 04/27/2015 11:55:00 DIS Inpatient JAMEEL PIMENTEL MD [facility] CSD CHEST PAIN,CAD,CHRONIC LEUKOCYTOSIS
[2018-12-03] MEDS ORDERED: HEParin (CATH LAB) 2,000 ML IV ONE (12:21)
[2018-12-03] MEDS ORDERED: NS IV 1000 ML 1,000 ML ONE (12:21)
[2018-12-03] MEDS ORDERED: LIDOCAINE 1% INJ 20 ML 20 ML VIAL ONE ×2 (12:21→14:07)
[2018-12-03] MEDS ORDERED: NS IV 1000 ML 1,000 ML IV SCH (12:30)
[2018-12-03 12:50] LABS: HEMOGLOBIN 13.3 G/DL (13.3-17.7); MEAN PLATELET VOLUME 9.5 FL (7.4-10.4); RED CELL DISTRIBUTION WIDTH 13.1 % (10.0-14.5)
--- NOTE | 2018-12-03 12:55 | Diagnostic Imaging Report ---
EXAMINATION: Single frontal view of the chest. INDICATION: Chest pain. Abnormal stress test. Hypertension. COMPARISON: Multiple priors, most recent performed on 11/05/2018. FINDINGS: The right CP angle is partially excluded from the [id number]. The lungs are clear and the pulmonary vasculature is normal. No pneumothorax or significant pleural effusion. There is unchanged cardiomegaly. Mediastinal contours are unchanged compared to prior studies. Median sternotomy wires appear intact. No acute osseous abnormality is identified. IMPRESSION: No acute chest disease. No significant change from prior. Unchanged cardiomegaly. Dictated by: Dictated on workstation # [id number]
[2018-12-03 13:02] LABS: PROTHROMBIN TIME PATIENT 13.6 SEC (12.2-14.7)
[2018-12-03 13:09] LABS: ALANINE AMINOTRANSFERASE 23 U/L (0-55); ALBUMIN 4.3 GM/DL (3.2-4.5); ALKALINE PHOSPHATASE 69 U/L (40-136); BILIRUBIN,TOTAL 0.3 MG/DL (0.1-1.0); BUN/CREATININE RATIO 10; CALCIUM 9.7 MG/DL (8.5-10.1); CARBON DIOXIDE 25 MMOL/L (21-32); CHLORIDE 103 MMOL/L (98-107); CHOLESTEROL 405 MG/DL (< 200); CREATININE SERUM 1.02 MG/DL (0.60-1.30); GFR ESTIMATED > 60; GLUCOSE 128 MG/DL (70-105); HDL CHOLESTEROL 34 MG/DL (40-60); POTASSIUM 4.1 MMOL/L (3.6-5.0); SODIUM 141 MMOL/L (135-145); TOTAL PROTEIN 7.6 GM/DL (6.4-8.2); TRIGLYCERIDES 538 MG/DL (<150)
[2018-12-03] MEDS ORDERED: fentaNYL INJECTION 100 MCG/2 ML AMP ONE (13:32)
[2018-12-03] MEDS ORDERED: MIDAZOLAM 5 MG/5 ML (VERSED) VIAL ONE (13:32)
[2018-12-03] MEDS ORDERED: DESV100T16 PO (13:40)
[2018-12-03] MEDS ORDERED: CLOP75TA69 PO (13:40)
[2018-12-03] MEDS ORDERED: ISM60TCR PO (13:40)
[2018-12-03] MEDS ORDERED: TRAZ-190 PO (13:40)
[2018-12-03] MEDS ORDERED: ICOS1CAP PO (13:40)
[2018-12-03] MEDS ORDERED: MECL-106 PO (13:40)
[2018-12-03] MEDS ORDERED: ALBU18HF2 INH (13:40)
[2018-12-03] MEDS ORDERED: GABA-488 PO (13:40)
[2018-12-03] MEDS ORDERED: MAG30ORA2 PO (13:40)
[2018-12-03] MEDS ORDERED: PROM50TA3 PO (13:40)
[2018-12-03] MEDS ORDERED: ACET-2267 PO (13:40)
--- NOTE | 2018-12-03 13:52 | Cardiac Procedure Note-CS/ASA ---
Pre-Procedure Note Pre-Op Procedure Note H&P Reviewed The H&P was reviewed, patient examined and no changes noted. Date H&P Reviewed: December 03, 2018 Time H&P Reviewed: 13:51 Conscious Sedation Pre-Proced Time 13:51 ASA Score 3 For ASA 3 and 4: Consider anesthesia and medical clearance. Also, for patients with a history of failed moderate sedation consider anesthesia. Airway Lungs Heart ASA score ASA 1: a normal healthy patient ASA 2: a patient with a mild systemic disease (mid diabetes, controlled hypertension, obesity x ASA 3: a patient with a severe systemic disease that limits activity (angina , COPD, prior Myocardial infarction) ASA 4: a patient with an incapacitating disease that is a constant threat to life (CHF, renal failure) ASA 5: a moribund patient not expected to survive 24 hrs. (ruptured aneurysm) ASA 6: a declared brain- patient whose organs are being harvested. For emergent operations, add the letter E after the classification Mallampati Classification Grade 3 Sedation Plan Analgesia, Amnesia, Plan communicated to team members, Discussed options with patient/fam, Discussed risks with patient/fam The patient is an appropriate candidate to undergo the planned procedure, sedation, and anesthesia. The patient immediately re-assessed prior to indication. JAMEEL PIMENTEL MD December 03, 2018 13:52
--- NOTE | 2018-12-03 14:02 | NUR ---
SPOKE WITH THE PATIENT ABOUT HIS MEDICATIONS HE HAD HIS BOTTLES WITH HIM WELL. I COMPARED THE BOTTLES WITH THE EXT MED HX. HE STATES HE DOES NOT TAKE THE METFORMIN OR THE AMLODIPINE ANYMORE.
[2018-12-03] MEDS ORDERED: HEParin 1000 UNIT/ML (10ML VIAL) FOR BOLUS ONE (14:13)
[2018-12-03] MEDS ORDERED: NITRO DRIP 25000 MCG/D5W 250 ML IV ONE (14:15)
[2018-12-03] MEDS ORDERED: ASPIRIN 325 MG (5 GR) TABLET ONE (14:32)
[2018-12-03] MEDS ORDERED: CLOPIDOGREL 300 MG (PLAVIX) TABLET PO ONE (14:32)
[2018-12-03] MEDS ORDERED: meTOprolol 5 MG/5 ML (LOPRESSOR) VIAL ONE (14:36)
--- NOTE | 2018-12-03 14:43 | Cardiac Cath Report ---
Cardiac Cath Report Physician (s)/Classified Ad Taker (s) Physician JAMEEL PIMENTEL MD Pre-Procedure Diagnosis Pre-Procedure Diagnosis: chest pain, coronary artery disease Post-Procedure Note Procedure Start Date: December 03, 2018 Name of Procedure: left heart catheterization Vein graft and REYES angiogram PTCA to the right PDA Findings/Procedure Note PROCEDURE NOTE: 48 years old gentleman with extensive history, history of CABG, multiple intervention the past, has been having recurrent chest pain, extensive history, decided to proceed with cardiac catheterization possible PTCA. After explaining the procedure to the patient, all pros and cons were explained , all questions were answered. The patient signed the consent and then he was placed on the cardiac catheterization laboratory. Groin was prepped SL fashion local anesthesia was used. Sheath placed in the right femoral artery. Leodan right and left catheter were used to access the coronary system. Pigtail was used to access the left ventricular cavity, no left ventriculogram was done, pressure was measured. JR catheter was used to evaluate the REYES and a vein graft. Patient was noted to have severe in-stent restenosis in the right PDA of the right coronary artery, given 7000 units of heparin, FFR guided was used, BMW wire was advanced then I used emerge balloon 2.5 x 20 mm multiple inflation up to 14 gurjit extending to 2.7 mm, angiogram postintervention showed excellent results. At the end of the procedure the sheath was removed. Closure device was deployed FINDINGS: Hemodynamics LV 147/17, end-diastolic pressure of 17 Aorta 150/59 mean of 12 ANATOMY: Left Main is free of obstructive disease Left Anterior Descending is occluded with patent REYES to LAD Left Circumflex has patent stent proximally, the obtuse marginal branch is occluded with occluded vein graft to the obtuse marginal branch, small vessel disease distally Right Coronory Artery is large dominant artery with moderate disease proximally , severe stenosis distally at the right PDA which with severe in-stent restenosis, successful balloon angioplasty with excellent results, balloon was used is a murmur 2.5 x 20 mm expanded to 14 gurjit LV Gram was not done, pressure was measured REYES angiogram showed patent REYES to LAD with good flow distally, small vessel disease. 2 vein grafts appear to be occluded CONCLUSION: 1. Severe in-stent restenosis of the right posterior descending branch of the right coronary artery, successful balloon and replaced using emerge balloon 2.5 x 20 mm expanded to 2.7 mm with excellent results. Small vessel disease distally, moderate disease in the midright coronary artery 2. Patent stent in the proximal circumflex artery, occluded obtuse marginal branch and vein graft to the obtuse marginal branch 3. Occluded LAD with patent REYES to LAD 4. 2 vein grafts one of them to the obtuse marginal branch and probably the second to the right coronary artery are occluded DISCUSSION AND RECOMMENDATION: continue to maximize medical therapy Anesthesia Type: Conscious Sedation Estimated blood loss (mL): 30 ml Contrast Amount: 75 ml Total Radiation Dose: 1331 mGy Post-Procedure Diagnosis Post-operative diagnosis: Chest pain Coronary artery disease Hypertension Hyperlipidemia JAMEEL PIMENTEL MD December 03, 2018 14:43
[2018-12-03] MEDS ORDERED: NON-FORMULARY MEDICATION 1 EA EA (Nitroglycerin (Nitrostat) 0.4 MG) SL PRN (14:45)
[2018-12-03] MEDS ORDERED: NON-FORMULARY MEDICATION 1 EA EA (Baclofen 20 MG) PO PRN (14:45)
[2018-12-03] MEDS ORDERED: PROMETHAZINE HCL 25 MG PO PRN (14:45)
[2018-12-03] MEDS ORDERED: RT-ALBUTEROL SULF 2.5 MG/3 ML PRE-MIX VIAL INH PRN (14:45)
[2018-12-03] MEDS ORDERED: ANTACID SUSP 30 ML UDC (MYLANTA) PO PRN (14:45)
[2018-12-03] MEDS ORDERED: MECLIZINE 25 MG (ANTIVERT) TAB PO PRN (14:45)
[2018-12-03] MEDS ORDERED: PATIENT MAY USE OWN MEDS, ALL PO SCH (14:45)
[2018-12-03] MEDS ORDERED: PANTOPRAZOLE 40 MG (PROTONIX) TAB PO SCH (16:00)
[2018-12-03] MEDS ORDERED: PANTOPRAZOLE 20 MG TABLET (PROTONIX) PO ONE (16:08)
[2018-12-03] MEDS: NS IV 1000 ML 1,000 ML IV SCH (16:14)
[2018-12-03] MEDS ORDERED: RT-ALBUTEROL SULF 2.5 MG/3 ML PRE-MIX VIAL IH PRN (16:45)
[2018-12-03] MEDS ORDERED: PROMETHAZINE 25 MG (PHENERGAN) TAB PO PRN (17:00)
[2018-12-03] MEDS ORDERED: BACLOFEN 10 MG (LIORESAL) TAB PO PRN (17:00)
[2018-12-03] MEDS ORDERED: RIVAROXABAN 20 MG TABLET (XARELTO) PO SCH (18:00)
[2018-12-03] MEDS ORDERED: PROMETHAZINE 50 MG PO PRN (19:00)
[2018-12-03] MEDS ORDERED: BACLOFEN 20 MG PO PRN (19:00)
[2018-12-03] MEDS: NITROGLYCERIN 0.4 MG SL TABS BTL 25'S SL PRN ×3 (20:15→20:58)
[2018-12-03] MEDS ORDERED: RANOLAZINE ER 500 MG TAB (RANEXA) PO SCH (21:00)
[2018-12-03] MEDS ORDERED: traZODone 100 MG (DESYREL) TAB PO SCH (21:00)
[2018-12-03] MEDS ORDERED: VASCEPA 1 GM CAPSULE PO SCH (21:00)
[2018-12-03] MEDS ORDERED: meTOproloL SUCCINATE 50 MG (TOPROL XL) TAB PO SCH ×2 (21:00)
[2018-12-03] MEDS ORDERED: GABAPENTIN 300 MG (NEURONTIN) CAP PO SCH ×2 (21:00)
[2018-12-03] MEDS ORDERED: NON-FORMULARY MEDICATION 1 EA EA (Ranolazine (Ranexa) 1,000 MG) PO SCH (21:00)
[2018-12-03] MEDS ORDERED: busPIRone 10 MG (BUSPAR) TAB PO SCH ×2 (21:00)
[2018-12-03] MEDS ORDERED: NON-FORMULARY MEDICATION 1 EA EA (Buspirone HCl 20 MG) PO SCH (21:00)
[2018-12-03] MEDS ORDERED: MECLIZINE 25 MG (ANTIVERT) TAB PO SCH (21:00)
[2018-12-03] MEDS ORDERED: RANEXA PO SCH (21:00)
[2018-12-03] MEDS ORDERED: morphine INJ 10 MG/ML 1ML (SYR OR VIAL) IVP PRN (21:45)
[2018-12-03] MEDS ORDERED: morphine INJ 4 MG/ML 1 ML (VIAL/SYRINGE) ONE (22:20)
[2018-12-03] MEDS: morphine INJ 4 MG/ML 1 ML (VIAL/SYRINGE) IVP PRN (22:31)
[2018-12-04] VITALS (7 sets, daily range): BP systolic 115–166; BP diastolic 54–99
[2018-12-04] MEDS: NITROGLYCERIN 0.4 MG SL TABS BTL 25'S SL PRN (00:01)
[2018-12-04] MEDS ORDERED: morphine INJ 4 MG/ML 1 ML (VIAL/SYRINGE) ONE (00:29)
[2018-12-04] MEDS: morphine INJ 4 MG/ML 1 ML (VIAL/SYRINGE) IVP PRN ×2 (00:33→04:49)
[2018-12-04] MEDS: NS IV 1000 ML 1,000 ML IV SCH (00:58)
[2018-12-04 04:05] LABS: HEMOGLOBIN 12.1 G/DL (13.3-17.7); MEAN PLATELET VOLUME 9.5 FL (7.4-10.4); RED CELL DISTRIBUTION WIDTH 13.2 % (10.0-14.5); WHITE BLOOD COUNT 9.3 10^3/uL (4.3-11.0)
[2018-12-04 04:09] LABS: BUN/CREATININE RATIO 11; CALCIUM 8.7 MG/DL (8.5-10.1); CARBON DIOXIDE 23 MMOL/L (21-32); CHLORIDE 105 MMOL/L (98-107); CREATININE SERUM 0.85 MG/DL (0.60-1.30); GFR ESTIMATED > 60; GLUCOSE 99 MG/DL (70-105); POTASSIUM 3.9 MMOL/L (3.6-5.0); SODIUM 141 MMOL/L (135-145)
[2018-12-04] MEDS ORDERED: NITR0.4T SL (07:38)
[2018-12-04] MEDS ORDERED: ASPI-983 PO (07:39)
--- NOTE | 2018-12-04 07:40 | Discharge Inst-Post CATH ---
Discharge Inst-CATH/EP Post Cardiac Cath/EP D/C Inst Follow Up/Plan Appointment with Dr. Fitzgerald's office in one week <b>CARDIAC CATH/EP PROCEDURE DISCHARGE INSTRUCTIONS</b> Cardiac Rehab Please be expecting a follow up call from Cardiac Rehab within in one week. ACTIVITY * Go Home directly and rest. * Limit activity of the leg (or wrist if it was used) for 7 days including aerobics, swimming, jogging, bicycling, etc. * Restrict stair-climbing for 7 days if possible, if not, climb up with your non -cath leg, then bring together on the same step. * Avoid lifting, pushing, pulling or excessive movement of the affected extremity for 7 days. * Customary sexual activity may be resumed after 2 days-use caution not to use a position that strains or causes pain to the affected extremity. * No driving for 24 hours. * NO SMOKING. * Avoid straining for bowel movements for 7 days. * Gentle walking on level ground is allowed. * Returning to work will depend on the type of procedure and the results. Your doctor will discuss this with you. CALL YOUR DOCTOR FOR ANY OF THE FOLLOWING: *If bleeding from the puncture site occurs- Apply gentle pressure to site with clean cloth and call your doctor or EMS. * If a knot or lump forms under the skin, increases in size, or causes pain. * If bruising appears to be worsening or moving further down your leg instead of disappearing. * Temperature above 101 F. CARE OF YOUR GROIN INCISION; * Bruising or purple discoloration of the skin near the puncture site is common. * You may shower only, no bathtub bathing for 5 days. Be careful to avoid slipping as your leg may feel stiff. * If a closure device was used on your femoral artery, please see the attached guide regarding care of the device and your leg. * Leave dressing on FOR 24 hours. CARE OF YOUR WRIST INCISION; * Bruising or purple discoloration of the skin near the puncture site is common. * You may shower. * DO NOT submerge wrist. * Leave dressing on FOR 24 hours. JAMEEL FITZGERALD MD December 04, 2018 07:40
--- NOTE | 2018-12-04 07:43 | Cardiology Progress Note ---
Subjective Date Seen by Provider: December 04, 2018 Time Seen by Provider: 07:41 Subjective/Events-last exam patient continued to have multiple episodes of chest pain last night, had some diaphoresis and elevated blood pressure, feeling better today. Review of Systems General: No Chills, No Night Sweats, No Fatigue, No Malaise, No Appetite, No Other HEENT: No Head Aches, No Visual Changes, No Eye Pain, No Ear Pain, No Dysphasia , No Sinus Congestion, No Post Nasal Drip, No Sore Throat, No Other Pulmonary: No Dyspnea, No Cough, No Pleuritic Chest Pain, No Other Cardiovascular: No: Chest Pain, Palpitations, Orthopnea, Paroxysmal Noc. Dyspnea, Edema, Lt Headedness, Other Objective-Cardiology Exam Last Set of Vital Signs Vital Signs 12/04/18 12/04/18 12/04/18 01:28 05:30 06:36 Temp 97.8 Pulse 76 Resp 12 B/P (MAP) 159/97 (117) Pulse Ox 98 O2 Delivery Room Air O2 Flow Rate 2.00 Capillary Refill : Less Than 3 Seconds General: Alert, Oriented X3, Cooperative HEENT: Atraumatic, PERRLA Neck: Supple, No JVD, No Thyromegaly Lungs: Clear to Auscultation, Normal Air Movement Heart: Regular Rate, Normal S1, Normal S2, No Murmurs Abdomen: Normal Bowel Sounds, Soft, No Tenderness, No Hepatosplenomegaly, No Masses Extremities: No Clubbing, No Cyanosis, No Edema, Normal Pulses, No Tenderness/ Swelling Skin: No Rashes, No Breakdown, No Significant Lesion Neuro: Normal Gait, Normal Speech, Strength at 5/5 X4 Ext, Normal Tone, Sensation Intact Psych/Mental Status: Mental Status NL, Mood NL Results Lab Laboratory Tests 12/03/18 12:45 12/04/18 03:05 A/P-Cardiology Admission Diagnosis Chest pain Coronary artery disease Hypertension Hyperlipidemia Assessment/Plan Recurrent chest pain, EKG did not show any acute changes, Cardec enzymes were negative. Continue to maximize medical therapy. Coronary artery disease, extensive disease, cardiac catheterization with balloon angioplasty for severe in-stent restenosis in the right PDA was done, patient had occluded obtuse marginal branch and vein graft to the marginal branch, patent REYES to LAD, small vessel disease distally. Continue to maximize medical therapy with nitroglycerin, isosorbide and Ranexa Hypertension, restart home medication monitor blood pressure Hyperlipidemia, poorly controlled, intolerant to multiple medication, trying Vascepa which was started 10 days ago. Continue to monitor lipids BMI 36, we discussed weight loss and exercise JAMEEL PIMENTEL MD December 04, 2018 07:43
[2018-12-04] MEDS ORDERED: ASPIRIN E.C. 81 MG (ECOTRIN) TAB PO SCH (09:00)
[2018-12-04] MEDS ORDERED: CLOPIDOGREL 75 MG (PLAVIX) TABLET PO SCH ×2 (09:00)
[2018-12-04] MEDS ORDERED: NON-FORMULARY MEDICATION 1 EA EA (Desvenlafaxine Succinate (Desvenlafaxine Succinate ER) 1 PO SCH (09:00)
[2018-12-04] MEDS ORDERED: ISOSORBIDE MONONITRATE 60 MG (IMDUR) TAB PO SCH (09:00)
[2018-12-04] MEDS ORDERED: DESVENLAFAXINE 100 MG PO SCH (09:00)
[2018-12-04] MEDS ORDERED: PANTOPRAZOLE 40 MG (PROTONIX) TAB PO SCH (16:00)
[2018-12-04] MEDS ORDERED: RIVAROXABAN 20 MG TABLET (XARELTO) PO SCH (18:00)
== END 2018-12-04 09:13 | disposition home or self-care (01) ==
LOC: CATH 11:53 → ICU 14:52 → 4TH 20:00 → UNDOFXSDCACCOM 20:00 → ICU 20:00 → UNDOFXSDCSVC 20:00 → CATH 12-04 09:13
PROVIDERS: ATTEND Internal Medicine Cardiovascular Disease
DX: R07.89 Other chest pain (principal); I25.10 Atherosclerotic heart disease of native coronary artery without angina pectoris; I10 Essential (primary) hypertension; E78.2 Mixed hyperlipidemia; Z95.1 Presence of aortocoronary bypass graft; I48.0 Paroxysmal atrial fibrillation; G47.30 Sleep apnea, unspecified; J44.9 Chronic obstructive pulmonary disease, unspecified; Z87.891 Personal history of nicotine dependence; I65.23 Occlusion and stenosis of bilateral carotid arteries; E11.9 Type 2 diabetes mellitus without complications; I48.92 Unspecified atrial flutter; F32.9 Major depressive disorder, single episode, unspecified; E66.01 Morbid (severe) obesity due to excess calories; Z79.899 Other long term (current) drug therapy; Z82.49 Family history of ischemic heart disease and other diseases of the circulatory system; Z79.01 Long term (current) use of anticoagulants; Z68.33 Body mass index [BMI] 33.0-33.9, adult; Z95.5 Presence of coronary angioplasty implant and graft; Z86.73 Personal history of transient ischemic attack (TIA), and cerebral infarction without residual deficits
CPT/HCPCS: 36415; 71045; 80048; 80053; 80061; 84484; 85027; 85347; 85610; 85730; 87081; 93005; 93459; 94760

== ENCOUNTER 2018-12-18 13:14 | Emergency (ER) | payer MEDICARE, MEDICAID ==
[~2018-12-18] VITALS: Ht 185.4 cm; Wt 125.6 kg
[~2018-12-18 13:14] MED LIST changes: +ACET-2267 PO; +ALBU18HF2 INH; +ASPI-983 PO; +CLOP75TA69 PO; +DESV100T16 PO; +GABA-488 PO; +ICOS1CAP PO; +PROM50TA3 PO; +TRAZ-190 PO
[2018-12-18] MEDS ORDERED: ASPIRIN 81 MG CHEW (CHILDREN'S ASA) PO ONE (13:30)
[2018-12-18 13:39] LABS: BASOPHILS % (AUTO) 0 % (0-10); EOSINOPHILS # (AUTO) 0.3 10^3/uL (0.0-0.3); EOSINOPHILS % (AUTO) 2 % (0-10); HEMATOCRIT 38 % (40-54); HEMOGLOBIN 13.1 G/DL (13.3-17.7); LYMPHOCYTES % (AUTO) 31 % (12-44); MEAN CORPUSCULAR HEMOGLOBIN 29 PG (25-34); MEAN CORPUSCULAR HGB CONC 35 G/DL (32-36); MEAN CORPUSCULAR VOLUME 82 FL (80-99); MEAN PLATELET VOLUME 9.9 FL (7.4-10.4); MONOCYTES # (AUTO) 0.8 X 10^3 (0.0-1.0); MONOCYTES % (AUTO) 7 % (0-12); NEUTROPHILS # (AUTO) 7.6 X 10^3 (1.8-7.8); NEUTROPHILS % (AUTO) 60 % (42-75); PLATELET COUNT 292 10^3/uL (130-400); RED CELL DISTRIBUTION WIDTH 13.2 % (10.0-14.5); WHITE BLOOD COUNT 12.7 10^3/uL (4.3-11.0)
[2018-12-18 13:54] LABS: INR 1.6 (0.8-1.4); PROTHROMBIN TIME PATIENT 19.7 SEC (12.2-14.7)
[2018-12-18 14:01] LABS: ALANINE AMINOTRANSFERASE 22 U/L (0-55); ALBUMIN 4.2 GM/DL (3.2-4.5); ALKALINE PHOSPHATASE 60 U/L (40-136); BILIRUBIN,TOTAL 0.3 MG/DL (0.1-1.0); BUN/CREATININE RATIO 9; CALCIUM 9.4 MG/DL (8.5-10.1); CARBON DIOXIDE 24 MMOL/L (21-32); CHLORIDE 103 MMOL/L (98-107); CREATININE SERUM 0.88 MG/DL (0.60-1.30); GFR ESTIMATED > 60; GLUCOSE 145 MG/DL (70-105); POTASSIUM 3.9 MMOL/L (3.6-5.0); SODIUM 139 MMOL/L (135-145); TOTAL PROTEIN 7.6 GM/DL (6.4-8.2)
--- NOTE | 2018-12-18 14:01 | ED Chest Pain ---
General Chief Complaint: Chest Pain Stated Complaint: CP;PALPITATIONS;LIGHT HEADED Nursing Triage Note: PT AMBULATED TO ROOM 6 PT CO OF CHEST PAIN AND PALPATIONS FOR APPROX MONTH SINCE ANGIOPLASTY. PT STATES HAS DIAPHORESIS,CHEST PAIN 7/10, SOA. Nursing Sepsis Screen: No Definite Risk Source: patient Exam Limitations: no limitations History of Present Illness Date Seen by Provider: December 18, 2018 Time Seen by Provider: 13:25 Initial Comments Here with report of actual chest pain palpitations since heart catheter over weeks ago. States that he gets better and worse with is otherwise there. Does have extensive heart history including bypass grafting and multiple stents. Had heart catheter done last month and did have balloon angioplasty at that time. Complains of intermittent shortness of breath and chest pain. His typical meds are not working. Concerned that there is something more going on again. 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 NTG SL FLANGING ROLL OPERATOR: No Associated Symptoms: No abdominal pain, No back pain, No fever/chills, No nausea/vomiting; shortness of breath; No weakness Allergies and Home Medications Allergies Coded Allergies: prednisone (Verified Allergy, Intermediate, RASH, 04/23/15) hydrocodone (Verified Allergy, Unknown, 04/23/15) venom-honey bee (Verified Allergy, Unknown, 04/23/15) Home Medications Acetaminophen 500 Mg Tablet, 500-1,000 MG PO Q4H PRN for PAIN-MILD, (Reported) Albuterol Sulfate 18 Gm Hfa.aer.ad, 2 PUFF INH Q6H PRN for SHORTNESS OF BREATH, (Reported) Aspirin 81 Mg Tablet.dr, 81 MG PO DAILY Prescribed by: JAMEEL PIMENTEL on 12/04/18 0739 Baclofen 20 Mg Tablet, 20 MG PO TID PRN for MUSCLE SPASMS, (Reported) Buspirone HCl 10 Mg Tablet, 20 MG PO BID, (Reported) TAKES 2 (10MG) TABLETS Clopidogrel Bisulfate 75 Mg Tablet, 75 MG PO DAILY, (Reported) Desvenlafaxine Succinate 100 Mg Tab.er.24h, 100 MG PO DAILY, (Reported) Gabapentin 300 Mg Capsule, 300 MG PO TID, (Reported) Icosapent Ethyl 1 Gm Capsule, 2 GM PO BID, (Reported) TAKES 2 (1GM) CAPSULES Isosorbide Mononitrate 60 Mg Tab, 60 MG PO DAILY, (Reported) Mag Hydrox/Al Hydrox/Simeth 30 Ml Oral.susp, 30 ML PO QID PRN for INDIGESTION, ( Reported) Meclizine HCl 25 Mg Tablet, 25 MG PO BID PRN for DIZZINESS, (Reported) Meclizine HCl 25 Mg Tablet, 25 MG PO BID, (Reported) Metoprolol Succinate 50 Mg Tab.er.24h, 50 MG PO BID, (Reported) Nitroglycerin 0.4 Mg Tab.subl, 0.4 MG SL UD PRN for CHEST PAIN Prescribed by: JAMEEL PIMENTEL on 12/04/18 0738 Pantoprazole Sodium 40 Mg Tablet.dr, 40 MG PO 1600, (Reported) Promethazine HCl 50 Mg Tablet, 25 MG PO Q6H PRN for NAUSEA/VOMITING-2ND LINE, ( Reported) Ranolazine 1,000 Mg Tab.er.12h, 1,000 MG PO BID, (Reported) Rivaroxaban 20 Mg Tablet, 20 MG PO 1800, (Reported) Trazodone HCl 100 Mg Tablet, 100 MG PO HS, (Reported) Patient Home Medication List Home Medication List Reviewed: Yes Review of Systems Review of Systems Constitutional: No chills; diaphoresis; No fever EENTM: No Symptoms Reported Respiratory: See HPI; Denies Cough; Shortness of Air Cardiovascular: Chest Pain; Denies Edema; Palpitations Gastrointestinal: Denies Abdominal Pain, Denies Nausea, Denies Vomiting Genitourinary: No Symptoms Reported Musculoskeletal: no symptoms reported Skin: no symptoms reported Psychiatric/Neurological: No Symptoms Reported All Other Systems Reviewed Negative Unless Noted: Yes Past [id number] Hx Past Med/Social Hx: Reviewed Nursing Past Med/Soc Hx Patient Social History Alcohol Use: Occasionally Uses Alcohol Beverage of Choice: Beer Drug of Choice: MARIJUANA Type Used: Cigarettes Former Smoker, Quit: Feb 07, 2000 2nd Hand Smoke Exposure: No Recent Foreign Travel: No Contact w/Someone Who Travel: No Recent Infectious Disease Expo: No Recent Hopitalizations: No Immunizations Up To Date Tetanus Booster (TDap): Unknown PED Vaccines UTD: No Date of Pneumonia Vaccine: December 03, 2016 Seasonal Allergies Seasonal Allergies: Yes Past Medical History Surgeries: Yes CABG Respiratory: Yes COPD Currently Using CPAP: Yes (doesnt use it ) Currently Using BIPAP: No Cardiac: Yes Atrial Fibrillation, Congenital Heart Disease, Heart Attack, High Cholesterol, Hypertension Neurological: Yes Stroke, TIA Reproductive Disorders: No Sexually Transmitted Disease: No HIV/AIDS: No Genitourinary: No Gastrointestinal: Yes Gastroesophageal Reflux Musculoskeletal: Yes (SCIATICA) Chronic Back Pain, Spasms Endocrine: Yes (Borderline DM) Diabetes, Non-Insulin dep HEENT: Yes Eye Injury, Double Vision Loss of Vision: Right Hearing Impairment: Denies Cancer: No Psychosocial: Yes (OCD; INTENTIONAL OVERDOSE/SUICIDE ATTEMPT 06/2017) Sleep Difficulties, Anxiety, Suicide Attempts, Depression Integumentary: No Blood Disorders: No Adverse Reaction/Blood Tranf: No Family Medical History Reviewed Nursing Family Hx Brain cancer 19 FATHER Congestive heart failure 19 MOTHER Coronary artery disease 19 FATHER Diabetes mellitus 19 MOTHER Heart attack 19 FATHER 19 MOTHER Hypertension 19 FATHER 19 MOTHER Lung cancer 19 FATHER Heart Disease, Cancer, Diabetes Physical Exam Vital Signs Vital Signs - First Documented Capillary Refill : Less Than 3 Seconds Height, Weight, BMI Height: 6'1.00" Weight: 277lbs. 0.0oz. [id number]; 36.9 BMI Method:Stated General Appearance: No Apparent Distress, WD/WN HEENT: PERRL/EOMI, Pharynx Normal Neck: Non Tender, Supple Respiratory: Lungs Clear, Normal Breath Sounds Cardiovascular: Regular Rate, Rhythm, No Murmur Gastrointestinal: Non Tender, Soft Extremity: Normal Range of Motion, Non Tender Neurologic/Psychiatric: Alert, Oriented x3 Skin: Normal Color, Warm/Dry Procedures/Interventions Suture Size: 4-0 Progress/Results/Core Measures Results/Orders Lab Results Laboratory Tests Test 12/18/18 13:25 Range/Units White Blood Count 12.7 H 4.3-11.0 10^3/uL Red Blood Count 4.60 4.35-5.85 10^6/uL Hemoglobin 13.1 L 13.3-17.7 G/DL Hematocrit 38 L 40-54 % Mean Corpuscular Volume 82 80-99 FL Mean Corpuscular Hemoglobin 29 25-34 PG Mean Corpuscular Hemoglobin Concent 35 32-36 G/DL Red Cell Distribution Width 13.2 10.0-14.5 % Platelet Count 292 130-400 10^3/uL Mean Platelet Volume 9.9 7.4-10.4 FL Neutrophils (%) (Auto) 60 42-75 % Lymphocytes (%) (Auto) 31 12-44 % Monocytes (%) (Auto) 7 0-12 % Eosinophils (%) (Auto) 2 0-10 % Basophils (%) (Auto) 0 0-10 % Neutrophils # (Auto) 7.6 1.8-7.8 X 10^3 Lymphocytes # (Auto) 4.0 1.0-4.0 X 10^3 Monocytes # (Auto) 0.8 0.0-1.0 X 10^3 Eosinophils # (Auto) 0.3 0.0-0.3 10^3/uL Basophils # (Auto) 0.0 0.0-0.1 10^3/uL Prothrombin Time 19.7 H 12.2-14.7 SEC INR Comment 1.6 H 0.8-1.4 Activated Partial Thromboplast Time 41 H 24-35 SEC D-Dimer 0.23 0.00-0.49 UG/ML Sodium Level 139 135-145 MMOL/L Potassium Level 3.9 3.6-5.0 MMOL/L Chloride Level 103 98-107 MMOL/L Carbon Dioxide Level 24 21-32 MMOL/L Anion Gap 12 5-14 MMOL/L Blood Urea Nitrogen 8 7-18 MG/DL Creatinine 0.88 0.60-1.30 MG/DL Estimat Glomerular Filtration Rate > 60 BUN/Creatinine Ratio 9 Glucose Level 145 H 70-105 MG/DL Calcium Level 9.4 8.5-10.1 MG/DL Corrected Calcium 9.2 8.5-10.1 MG/DL Magnesium Level 2.0 1.8-2.4 MG/DL Total Bilirubin 0.3 0.1-1.0 MG/DL Aspartate Amino Transf (AST/SGOT) 16 5-34 U/L Alanine Aminotransferase (ALT/SGPT) 22 0-55 U/L Alkaline Phosphatase 60 40-136 U/L Myoglobin 30.1 10.0-92.0 NG/ML Troponin I < 0.028 <0.028 NG/ML Total Protein 7.6 6.4-8.2 GM/DL Albumin 4.2 3.2-4.5 GM/DL My Orders Orders - SHA HOLDER MD Cbc With Automated Diff (12/18/18 13:25) Magnesium (12/18/18 13:25) Chest 1 View, Ap/Pa Only (12/18/18 13:25) Ekg Tracing (12/18/18 13:25) Cardiac Profile 1 (12/18/18 13:25) Comprehensive Metabolic Panel (12/18/18 13:25) Myoglobin Serum (12/18/18 13:25) Protime With Inr (12/18/18 13:25) Partial Thromboplastin Time (12/18/18 13:25) O2 (12/18/18 13:25) Monitor-Rhythm Ecg Trace Only (12/18/18 13:25) Lipid Panel (12/19/18 06:00) Ed Iv/Invasive Line Start (12/18/18 13:25) Fibrin Degradation Products (12/18/18 13:25) Aspirin Chewable Tablet (Baby Aspirin Ch (12/18/18 13:30) Nitroglycerin 0.4 Mg Btl 25's (Nitrostat (12/18/18 14:30) Morphine Injection (Morphine Injection (12/18/18 15:15) Morphine Injection (Morphine Injection (12/18/18 15:15) Metoprolol Succinate (Xl) Tab (Toprol Xl (12/18/18 16:45) Medications Given in ED Current Medications Medications Dose Ordered Sig/Colette Route Start Time Stop Time Status Last Admin Dose Admin Aspirin 324 mg ONCE ONCE PO 12/18/18 13:30 12/18/18 13:31 DC 12/18/18 14:01 324 MG Morphine Sulfate 4 mg ONCE ONCE IVP 12/18/18 15:15 12/18/18 15:16 DC 12/18/18 15:20 4 MG Nitroglycerin 0.4 mg UD PRN SL 12/18/18 14:30 12/18/18 14:50 0.4 MG Vital Signs/I&O 12/18/18 12/18/18 13:15 13:15 Temp 97.9 Pulse 93 Resp 20 B/P (MAP) 161/93 (115) Pulse Ox 97 O2 Delivery Room Air Room Air Blood Pressure Mean: 115 Progress Progress Note : Progress Note Seen and evaluated. IV, labs, EKG and chest x-ray ordered. ASA 324 mg by mouth ordered. Monitor patient. I did discuss the case with Dr. Pimentel and he is recommending nitroglycerin sublingual. We will try that. Patient has taken at home for this and it did help after 3. Monitor patient. 1625: I did discuss the case with Dr. Pimentel again as patient did not get better with nitroglycerin. We also gave morphine 4 mg IV and that did help some. Dr. Pimentel did see the patient at 1630. During that time. Patient had episode of atrial tachycardia. We will give metoprolol XL 50 mg by mouth now and continue the outpatient. He will see Dr. Pimentel on Saturday at 1 PM. Discharged home with return precautions. Patient verbalize understanding instructions and agreement with plan. Initial ECG Impression Date: December 18, 2018 Initial ECG Impression Time: 13:28 Initial ECG Rate: 90 Initial ECG Rhythm: Normal Sinus Comment Sinus rhythm with normal axis. No evidence of ST elevation NM. Multiform PVCs and LVH noted. Similar to previous of 12/03/18. Interpreted by me. Departure Impression Primary Impression: Chest pain Qualified Codes: R07.9 - Chest pain, unspecified Additional Impression: Atrial tachycardia Disposition: 01 HOME, SELF-CARE Condition: Stable Departure-Patient Inst. Decision time for Depature: 17:18 Referrals: JUNIOR XIE MD (PCP/Family) Primary Care Physician Patient Instructions: Chest Pain (DC) Add. Discharge Instructions: All discharge instructions reviewed with patient and/or family. Voiced understanding. You will double your metoprolol XL from 50 mg twice a day to 100 mg twice a day. Go ahead and just take 50 mg tonight since you were given a dose in the emergency department but start the double dosing in the morning. Follow-up with Dr. Pimentel on Saturday at 1 PM. Return for worse pain, fever, vomiting, weakness, breathing problems or other concerns as needed. Copy Copies To 1: JAMEEL PIMENTEL MD, TIMOTHY D MD December 18, 2018 14:01
--- NOTE | 2018-12-18 14:02 | NUR ---
SEE LIST FOR CURRENT MEDS
--- NOTE | 2018-12-18 14:23 | Diagnostic Imaging Report ---
INDICATION: Chest pain and palpitation. TIME OF EXAM: 02:04 p.m. Correlation is made with prior study from 12/03/2018. Heart is enlarged. There are changes of median sternotomy. There is no infiltrate or failure. No effusion or pneumothorax is seen. IMPRESSION: No acute cardiopulmonary process is detected. Dictated by: Dictated on workstation # [id number]
[2018-12-18] MEDS: NITROGLYCERIN 0.4 MG SL TABS BTL 25'S SL PRN ×2 (14:42→14:50)
--- NOTE | 2018-12-18 15:12 | NUR ---
PT STATES NITRO MADE FEEL WORSE, DR HOLDER NOTIFIED
[2018-12-18] MEDS ORDERED: morphine INJ 10 MG/ML 1ML (SYR OR VIAL) ONE (15:15)
[2018-12-18] MEDS ORDERED: morphine INJ 10 MG/ML 1ML (SYR OR VIAL) IVP ONE (15:15)
--- NOTE | 2018-12-18 15:46 | NUR ---
PAIN DOWN TO 4/10
--- NOTE | 2018-12-18 16:31 | NUR ---
DR PIMENTEL HERE TO SEE PT
[2018-12-18] MEDS ORDERED: meTOproloL SUCCINATE 50 MG (TOPROL XL) TAB PO SCH (16:45)
[2018-12-18 17:34] VITALS: BP 146/92
== END 2018-12-18 17:36 | disposition home or self-care (01) ==
LOC: EDUNIT# 13:14 → ER 13:16
DX: R07.89 Other chest pain (principal); R00.0 Tachycardia, unspecified; J44.9 Chronic obstructive pulmonary disease, unspecified; I48.91 Unspecified atrial fibrillation; I25.2 Old myocardial infarction; E78.00 Pure hypercholesterolemia, unspecified; I10 Essential (primary) hypertension; K21.9 Gastro-esophageal reflux disease without esophagitis; E11.9 Type 2 diabetes mellitus without complications; F41.9 Anxiety disorder, unspecified; F32.9 Major depressive disorder, single episode, unspecified; Z80.8 Family history of malignant neoplasm of other organs or systems; Z82.49 Family history of ischemic heart disease and other diseases of the circulatory system; Z80.1 Family history of malignant neoplasm of trachea, bronchus and lung; Z91.5 Personal history of self-harm; Z86.73 Personal history of transient ischemic attack (TIA), and cerebral infarction without residual deficits; Z95.5 Presence of coronary angioplasty implant and graft; Z95.1 Presence of aortocoronary bypass graft; Z88.8 Allergy status to other drugs, medicaments and biological substances; Z88.5 Allergy status to narcotic agent; Z79.82 Long term (current) use of aspirin; Z79.01 Long term (current) use of anticoagulants; Z79.02 Long term (current) use of antithrombotics/antiplatelets; Z87.891 Personal history of nicotine dependence
CPT/HCPCS: 36415; 71045; 80053; 83735; 83874; 84484; 85025; 85379; 85610; 85730; 93041

== ENCOUNTER 2019-03-18 11:21 | Outpatient (RCR) | payer MEDICARE, MEDICAID | END 2019-03-26 | disposition home or self-care (01) | LOC: CR 11:21 | PROVIDERS: ATTEND Internal Medicine Cardiovascular Disease | DX: Z48.812 Encounter for surgical aftercare following surgery on the circulatory system (principal); Z95.5 Presence of coronary angioplasty implant and graft | CPT/HCPCS: 93798 ==

== ENCOUNTER 2019-04-15 11:09 | Outpatient (RCR) | payer MEDICARE, MEDICAID | END 2019-06-30 | disposition home or self-care (01) | LOC: CR 11:09 | PROVIDERS: ATTEND Internal Medicine Cardiovascular Disease | DX: Z48.812 Encounter for surgical aftercare following surgery on the circulatory system (principal); Z95.5 Presence of coronary angioplasty implant and graft | CPT/HCPCS: 93798 ==

== ENCOUNTER → 2019-07-09 | Outpatient (CLI) | payer MEDICARE, MEDICAID ==
[~2019-07-09] MED LIST changes: +CATHETER FLUSH 10 ML SYR IV PRN; +EZET10TA17 PO; -EZET10TA5 PO; +HOLD METFORMIN - RECEIVED CONTRAST 20 ML VIAL IV SCH; +IOHEXOL 350 MG/ML 100 ML (OMNIPAQUE 350) VIAL IV ONE; -METO-370 PO; +METO50TA7 PO; +NS 100 ML (IVPB) BAG IV ONE; +OMEP40CA27 PO; -OMEP40CA36 PO
--- NOTE | 2019-07-09 14:19 | Diagnostic Imaging Report ---
PROCEDURE: CT chest with contrast only. TECHNIQUE: Multiple contiguous axial images were obtained through the chest after administration of intravenous contrast. Auto Exposure Controls were utilized during the CT exam to meet ALARA standards for radiation dose reduction. INDICATION: Chest pain, palpitations and diaphoresis. FINDINGS: The lungs are clear, bilaterally apart from tiny calcified granuloma in the left apex. Coronary artery calcifications are noted with previous coronary artery bypass. There is relative low volume right ventricle. No pleural fluid is identified. There is no evidence of pericardial effusion. No pathologic adenopathy is identified. Low density throughout the liver indicates fatty infiltration. There is a small hiatal hernia. Prominent bilateral breast tissue likely reflects gynecomastia. IMPRESSION: No acute abnormality is identified. There is no evidence of heart failure or acute pulmonary disease. Great vessels in the mediastinum are unremarkable apart from atherosclerotic calcification, although there is a relatively low volume right ventricle. Dictated by: Dictated on workstation # [id number]
== END ==
LOC: RAD 12:42
PROVIDERS: ATTEND Nurse Practitioner Family
DX: J44.9 Chronic obstructive pulmonary disease, unspecified (principal); I70.90 Unspecified atherosclerosis; J30.9 Allergic rhinitis, unspecified; E66.9 Obesity, unspecified; G47.33 Obstructive sleep apnea (adult) (pediatric)
CPT/HCPCS: 71260

== ENCOUNTER → 2019-07-17 | Outpatient (CLI) | payer MEDICARE, MEDICAID ==
[~2019-07-17] MED LIST changes: -CATHETER FLUSH 10 ML SYR IV PRN; -EZET10TA17 PO; +EZET10TA5 PO; -HOLD METFORMIN - RECEIVED CONTRAST 20 ML VIAL IV SCH; -IOHEXOL 350 MG/ML 100 ML (OMNIPAQUE 350) VIAL IV ONE; +METO-370 PO; -METO50TA7 PO; -NS 100 ML (IVPB) BAG IV ONE; -OMEP40CA27 PO; +OMEP40CA36 PO; +RT-ALBUTEROL SULF 2.5 MG/3 ML PRE-MIX VIAL INH ONE; +RT-ALBUTEROL SULF 2.5 MG/3 ML PRE-MIX VIAL ONE
[2019-07-17 11:34] LABS: ABG BASE EXCESS 1.6 MMOL/L (-2.5-2.5); ABG OXYGEN SATURATION 95 % (94-100); ABG PCO2 41 MMHG (35-45); ABG PH 7.41 (7.37-7.43); ABG PO2 67 MMHG (79-93); ABG TCO2 27.1 MMOL/L (21.0-31.0); ALLENS TEST POSITIVE; PATIENT TEMP 36.6; VENTILATOR NO
== END ==
LOC: RT 10:22
PROVIDERS: ATTEND Nurse Practitioner Family
DX: J44.9 Chronic obstructive pulmonary disease, unspecified (principal); E66.9 Obesity, unspecified; G47.33 Obstructive sleep apnea (adult) (pediatric)
CPT/HCPCS: 36600; 82805; 94060; 94726; 94729

== ENCOUNTER 2019-07-22 19:33 | Outpatient (CLI) | payer MEDICARE, MEDICAID ==
[~2019-07-22 19:33] MED LIST changes: -RT-ALBUTEROL SULF 2.5 MG/3 ML PRE-MIX VIAL INH ONE; -RT-ALBUTEROL SULF 2.5 MG/3 ML PRE-MIX VIAL ONE
== END 2019-07-23 06:10 | disposition home or self-care (01) ==
LOC: SLEEP 19:33
PROVIDERS: ATTEND Nurse Practitioner Family
DX: G47.33 Obstructive sleep apnea (adult) (pediatric) (principal); E66.9 Obesity, unspecified; J42 Unspecified chronic bronchitis; J44.9 Chronic obstructive pulmonary disease, unspecified; I25.10 Atherosclerotic heart disease of native coronary artery without angina pectoris; Z86.73 Personal history of transient ischemic attack (TIA), and cerebral infarction without residual deficits; I42.9 Cardiomyopathy, unspecified
CPT/HCPCS: 95811

== ENCOUNTER → 2019-10-07 | Outpatient (CLI) | payer MEDICAID ==
[~2019-10-07] MED LIST changes: +EZET10TA17 PO; -EZET10TA5 PO; -MECL-106 PO; +MECL-149 PO; -METO-370 PO; +METO50TA7 PO; +OMEP40CA27 PO; -OMEP40CA36 PO; -TRAZ-190 PO; +TRAZ-227 PO
--- NOTE | 2019-10-07 15:24 | Diagnostic Imaging Report ---
INDICATION: Shortness of breath, cough, chest tightness. TECHNIQUE: Two view chest 2:46 PM CORRELATION STUDY: 12/18/2018 FINDINGS: Poststernotomy changes. Heart size mildly enlarged. Vasculature within normal limits. The lungs are clear with no consolidating infiltrate. There is no significant pleural effusion or pneumothorax. Slight accentuated thoracic kyphosis. IMPRESSION: 1. Negative for acute abnormality of the chest. Dictated by: Dictated on workstation # [id number]
== END ==
LOC: RAD 14:17
PROVIDERS: ATTEND Nurse Practitioner Family
DX: J44.9 Chronic obstructive pulmonary disease, unspecified (principal); G47.33 Obstructive sleep apnea (adult) (pediatric); E66.9 Obesity, unspecified; R00.2 Palpitations
CPT/HCPCS: 71046

== ENCOUNTER → 2020-01-15 | Outpatient (CLI) | payer MEDICAID | LOC: CARD 11:40 | PROVIDERS: ATTEND Internal Medicine Cardiovascular Disease | DX: I07.1 Rheumatic tricuspid insufficiency (principal); E78.2 Mixed hyperlipidemia; I10 Essential (primary) hypertension; I25.10 Atherosclerotic heart disease of native coronary artery without angina pectoris | CPT/HCPCS: 93306 ==

== ENCOUNTER 2020-01-19 23:46 | Inpatient (IN) | payer MEDICAID ==
[~2020-01-19] VITALS: Ht 185 cm; Wt 127.0 kg
[~2020-01-19 23:46] MED LIST changes: +ONDANSETRON 4 MG/2 ML (SDV) Z0FRAN ONE
[2020-01-19] MEDS ORDERED: LACTATED RINGERS 1,000 ML IV ONE (23:54)
[2020-01-20] VITALS (10 sets, daily range): BP systolic 112–141; BP diastolic 57–96
[2020-01-20] MEDS ORDERED: LACTATED RINGERS 1,000 ML IV ONE ×2 (00:04→03:20)
--- NOTE | 2020-01-20 00:05 | NUR ---
COVID-19 SWAB COLLECTED AND SENT TO LAB WITH [facility].
--- NOTE | 2020-01-20 00:08 | NUR ---
1L NS STARTED BY EMS COMPLETE AT THIS TIME.
[2020-01-20] MEDS ORDERED: ONDANSETRON 4 MG/2 ML (SDV) Z0FRAN IVP ONE (00:15)
[2020-01-20 00:17] LABS: BASOPHILS % (AUTO) 0 % (0-10); EOSINOPHILS # (AUTO) 0.1 10^3/uL (0.0-0.3); EOSINOPHILS % (AUTO) 1 % (0-10); HEMATOCRIT 37 % (40-54); HEMOGLOBIN 13.1 G/DL (13.3-17.7); LYMPHOCYTES # (AUTO) 3.4 X 10^3 (1.0-4.0); LYMPHOCYTES % (AUTO) 28 % (12-44); MEAN CORPUSCULAR HEMOGLOBIN 29 PG (25-34); MEAN CORPUSCULAR HGB CONC 36 G/DL (32-36); MEAN CORPUSCULAR VOLUME 82 FL (80-99); MONOCYTES # (AUTO) 0.7 X 10^3 (0.0-1.0); MONOCYTES % (AUTO) 6 % (0-12); NEUTROPHILS # (AUTO) 7.7 X 10^3 (1.8-7.8); NEUTROPHILS % (AUTO) 65 % (42-75); PLATELET COUNT 344 10^3/uL (130-400); RED CELL DISTRIBUTION WIDTH 13.3 % (10.0-14.5); WHITE BLOOD COUNT 11.9 10^3/uL (4.3-11.0)
[2020-01-20 00:22] LABS: ALBUMIN 4.1 GM/DL (3.2-4.5); CHLORIDE 102 MMOL/L (98-107); SODIUM 138 MMOL/L (135-145)
[2020-01-20 00:23] LABS: CALCIUM 8.9 MG/DL (8.5-10.1)
[2020-01-20 00:24] LABS: GLUCOSE 131 MG/DL (70-105); TOTAL PROTEIN 7.5 GM/DL (6.4-8.2)
[2020-01-20 00:25] LABS: CARBON DIOXIDE 21 MMOL/L (21-32)
[2020-01-20 00:26] LABS: BILIRUBIN,TOTAL 0.5 MG/DL (0.1-1.0)
[2020-01-20 00:28] LABS: ALKALINE PHOSPHATASE 78 U/L (40-136); CREATININE SERUM 1.56 MG/DL (0.60-1.30); GFR ESTIMATED 48
[2020-01-20 00:29] LABS: BUN/CREATININE RATIO 6
[2020-01-20 00:31] LABS: ALANINE AMINOTRANSFERASE 15 U/L (0-55)
[2020-01-20 00:37] LABS: INR 2.1 (0.8-1.4); PROTHROMBIN TIME PATIENT 24.5 SEC (12.2-14.7)
[2020-01-20 00:38] LABS: PARTIAL THROMBOPLASTIN TIME 34 SEC (24-35)
[2020-01-20 00:39] LABS: ERYTHROCYTE SEDIMENTATION RATE 25 MM/HR (0-15); FIBRIN DEGRADATION PRODUCTS < 0.27 UG/ML (0.00-0.49)
--- NOTE | 2020-01-20 00:44 | ED Cardiac General ---
History of Present Illness General Chief Complaint: Chest Pain Stated Complaint: CP,SOA Source: patient, EMS Exam Limitations: no limitations History of Present Illness Date Seen by Provider: Jan 19, 2020 Time Seen by Provider: 23:44 Initial Comments Here with report of chest pain and shortness of air. States that he was out watering her serrato and when he got to the last bad she started getting very weak. States it felt like his typical syncopal or near syncopal episode so he laid down on the ground and got his feet up. He remained quite weak so summoned EMS. On their arrival they found his blood pressure to be in the 70s systolic and he is complaining of central chest pressure heaviness. Does have significant cardiac history with previous stents 6 as well as history of systolic and congestive heart failure. He is on blood pressure medicines but missed his morning dose. He did take it this afternoon. Denies recent illness or contact with COVID positive patient's or persons under investigation. 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 She is not sick. Timing/Duration: 1 hour, changing over time, other (better now after EMS fluids) Severity: moderate Location: central, other (pressure) Activities at Onset: activity Prior CP/Workup: cardiac cath, echocardiography Modifying Factors: improves with oxygen, improves with rest NTG SL FORWARD AIR CONTROLLER/AIR OFFICER: No ASA po FORWARD AIR CONTROLLER/AIR OFFICER: Yes Associated Systoms: Chest Pain; No Cough, No Diaphoresis, No Fever/Chills, No Headaches; Nausea/Vomiting, Shortness of Air, Weakness Allergies and Home Medications Allergies Coded Allergies: prednisone (Verified Allergy, Intermediate, RASH, 04/23/15) hydrocodone (Verified Allergy, Unknown, 04/23/15) venom-honey bee (Verified Allergy, Unknown, 04/23/15) Home Medications Acetaminophen 500 Mg Tablet, 500-1,000 MG PO Q4H PRN for PAIN-MILD, (Reported) Albuterol Sulfate 18 Gm Hfa.aer.ad, 2 PUFF INH Q6H PRN for SHORTNESS OF BREATH, (Reported) Aspirin 81 Mg Tablet.dr, 81 MG PO DAILY Prescribed by: JAMEEL PIMENTEL on 12/04/18 0739 Baclofen 20 Mg Tablet, 20 MG PO TID PRN for MUSCLE SPASMS, (Reported) Buspirone HCl 10 Mg Tablet, 20 MG PO BID, (Reported) TAKES 2 (10MG) TABLETS Clopidogrel Bisulfate 75 Mg Tablet, 75 MG PO DAILY, (Reported) Desvenlafaxine Succinate 100 Mg Tab.er.24h, 100 MG PO DAILY, (Reported) Gabapentin 300 Mg Capsule, 300 MG PO TID, (Reported) Icosapent Ethyl 1 Gm Capsule, 2 GM PO BID, (Reported) TAKES 2 (1GM) CAPSULES Isosorbide Mononitrate 60 Mg Tab, 60 MG PO DAILY, (Reported) Mag Hydrox/Al Hydrox/Simeth 30 Ml Oral.susp, 30 ML PO QID PRN for INDIGESTION, (Reported) Meclizine HCl 25 Mg Tablet, 25 MG PO BID PRN for DIZZINESS, (Reported) Meclizine HCl 25 Mg Tablet, 25 MG PO BID, (Reported) Metoprolol Succinate 25 Mg Tab.er.24h, 25 MG PO DAILY Prescribed by: JAMEEL PIMENTEL on 01/20/20 1324 Nitroglycerin 0.4 Mg Tab.subl, 0.4 MG SL UD PRN for CHEST PAIN Prescribed by: JAMEEL PIMENTEL on 12/04/18 0738 Pantoprazole Sodium 40 Mg Tablet.dr, 40 MG PO 1600, (Reported) Promethazine HCl 50 Mg Tablet, 25 MG PO Q6H PRN for NAUSEA/VOMITING-2ND LINE, (Reported) Ranolazine 1,000 Mg Tab.er.12h, 1,000 MG PO BID, (Reported) Rivaroxaban 20 Mg Tablet, 20 MG PO 1800, (Reported) Trazodone HCl 100 Mg Tablet, 100 MG PO HS, (Reported) Patient Home Medication List Home Medication List Reviewed: Yes Review of Systems Review of Systems Constitutional: see HPI; No chills, No fever; weakness EENTM: No Symptoms Reported Respiratory: Denies Cough; Shortness of Air Cardiovascular: Chest Pain; Denies Edema; Lightheadedness Gastrointestinal: Nausea; Denies Vomiting Genitourinary: No Symptoms Reported Musculoskeletal: no symptoms reported Skin: no symptoms reported All Other Systems Reviewed Negative Unless Noted: Yes Past Iltcvoc-Ucwxtk-Gbxigy Hx Past Med/Social Hx: Reviewed Nursing Past Med/Soc Hx Patient Social History Alcohol Use: Occasionally Uses Alcohol Beverage of Choice: Beer Recreational Drug Use: Yes Drug of Choice: MARIJUANA Smoking Status: Former Smoker Type Used: Cigarettes Former Smoker, Quit: Feb 07, 2000 2nd Hand Smoke Exposure: No Recent Hopitalizations: Yes (NOVEMBER) Immunizations Up To Date Tetanus Booster (TDap): Unknown PED Vaccines UTD: No Date of Pneumonia Vaccine: December 03, 2016 Seasonal Allergies Seasonal Allergies: Yes Past Medical History Surgeries: Yes Angioplasty, CABG Respiratory: Yes COPD Currently Using CPAP: Yes (doesnt use it ) Currently Using BIPAP: No Cardiac: Yes Atrial Fibrillation, Congenital Heart Disease, Heart Attack, High Cholesterol, Hypertension Neurological: Yes Stroke, TIA Reproductive Disorders: No Sexually Transmitted Disease: No HIV/AIDS: No Genitourinary: No Gastrointestinal: Yes Gastroesophageal Reflux Musculoskeletal: Yes (SCIATICA) Chronic Back Pain, Spasms Endocrine: No (Hx of metaformin, last A1C stopped taking ) Diabetes, Non-Insulin dep HEENT: Yes Eye Injury, Double Vision Loss of Vision: Right Hearing Impairment: Denies Cancer: No Psychosocial: Yes (OCD; INTENTIONAL OVERDOSE/SUICIDE ATTEMPT 06/2017) Sleep Difficulties, Anxiety, Suicide Attempts, Depression Integumentary: No Blood Disorders: No Adverse Reaction/Blood Tranf: No Family Medical History Reviewed Nursing Family Hx Brain cancer 19 FATHER Congestive heart failure 19 MOTHER Coronary artery disease 19 FATHER Diabetes mellitus 19 MOTHER Heart attack 19 FATHER 19 MOTHER Hypertension 19 FATHER 19 MOTHER Lung cancer 19 FATHER Heart Disease, Cancer, Diabetes Physical Exam Vital Signs Vital Signs - First Documented 01/19/20 23:50 Pulse Ox 99 O2 Flow Rate 2.00 Capillary Refill : Height, Weight, BMI Height: 6'1.00" Weight: 277lbs. 0.0oz. 125.647903sc; 36.9 BMI Method:Stated General Appearance: No Apparent Distress, WD/WN, Obese Neck: Non Tender, Supple Respiratory: Lungs Clear, Normal Breath Sounds Cardiovascular: Regular Rate, Rhythm, No Murmur Gastrointestinal: Non Tender, Soft Extremity: Normal Range of Motion, Non Tender Neurologic/Psychiatric: Alert, Oriented x3 Skin: Normal Color, Warm/Dry Focused Exam Lactate Level 01/19/20 23:55: Lactic Acid Level 3.74*H 01/20/20 01:46: Lactic Acid Level 1.14 Lactic Acid Level Laboratory Tests Test 01/19/20 23:55 01/20/20 01:46 Lactic Acid Level 3.74 MMOL/L (0.50-2.00) *H 1.14 MMOL/L (0.50-2.00) Procedures/Interventions Suture Size: 4-0 Progress/Results/Core Measures Results/Orders Lab Results Laboratory Tests Test 01/19/20 23:55 01/20/20 00:05 01/20/20 01:45 01/20/20 01:46 Range/Units White Blood Count 11.9 H 4.3-11.0 10^3/uL Red Blood Count 4.49 4.35-5.85 10^6/uL Hemoglobin 13.1 L 13.3-17.7 G/DL Hematocrit 37 L 40-54 % Mean Corpuscular Volume 82 80-99 FL Mean Corpuscular Hemoglobin 29 25-34 PG Mean Corpuscular Hemoglobin Concent 36 32-36 G/DL Red Cell Distribution Width 13.3 10.0-14.5 % Platelet Count 344 130-400 10^3/uL Mean Platelet Volume 10.0 7.4-10.4 FL Neutrophils (%) (Auto) 65 42-75 % Lymphocytes (%) (Auto) 28 12-44 % Monocytes (%) (Auto) 6 0-12 % Eosinophils (%) (Auto) 1 0-10 % Basophils (%) (Auto) 0 0-10 % Neutrophils # (Auto) 7.7 1.8-7.8 X 10^3 Lymphocytes # (Auto) 3.4 1.0-4.0 X 10^3 Monocytes # (Auto) 0.7 0.0-1.0 X 10^3 Eosinophils # (Auto) 0.1 0.0-0.3 10^3/uL Basophils # (Auto) 0.0 0.0-0.1 10^3/uL Erythrocyte Sedimentation Rate 25 H 0-15 MM/HR Prothrombin Time 24.5 H 12.2-14.7 SEC INR Comment 2.1 H 0.8-1.4 Activated Partial Thromboplast Time 34 24-35 SEC D-Dimer < 0.27 0.00-0.49 UG/ML Sodium Level 138 135-145 MMOL/L Potassium Level 4.0 3.6-5.0 MMOL/L Chloride Level 102 98-107 MMOL/L Carbon Dioxide Level 21 21-32 MMOL/L Anion Gap 15 H 5-14 MMOL/L Blood Urea Nitrogen 9 7-18 MG/DL Creatinine 1.56 H 0.60-1.30 MG/DL Estimat Glomerular Filtration Rate 48 BUN/Creatinine Ratio 6 Glucose Level 131 H 70-105 MG/DL Lactic Acid Level 3.74 *H 1.14 0.50-2.00 MMOL/L Calcium Level 8.9 8.5-10.1 MG/DL Corrected Calcium 8.8 8.5-10.1 MG/DL Total Bilirubin 0.5 0.1-1.0 MG/DL Aspartate Amino Transf (AST/SGOT) 11 5-34 U/L Alanine Aminotransferase (ALT/SGPT) 15 0-55 U/L Alkaline Phosphatase 78 40-136 U/L Lactate Dehydrogenase 204 125-220 U/L Troponin I < 0.028 <0.028 NG/ML C-Reactive Protein High Sensitivity 0.95 H 0.00-0.50 MG/DL B-Type Natriuretic Peptide 45.7 <100.0 PG/ML Total Protein 7.5 6.4-8.2 GM/DL Albumin 4.1 3.2-4.5 GM/DL Procalcitonin 0.07 <0.10 NG/ML Coronavirus (COVID-19)(PCR) Negative Negative Urine Color YELLOW Urine Clarity CLEAR Urine pH 6.5 5-9 Urine Specific [place] 1.020 1.016-1.022 Urine Protein TRACE H NEGATIVE Urine Glucose (UA) NEGATIVE NEGATIVE Urine Ketones NEGATIVE NEGATIVE Urine Nitrite NEGATIVE NEGATIVE Urine Bilirubin NEGATIVE NEGATIVE Urine Urobilinogen 0.2 < = 1.0 MG/DL Urine Leukocyte Esterase NEGATIVE NEGATIVE Urine RBC (Auto) NEGATIVE NEGATIVE Urine RBC NONE /HPF Urine WBC NONE /HPF Urine Squamous Epithelial Cells 0-2 /HPF Urine Crystals NONE /LPF Urine Bacteria TRACE /HPF Urine Casts PRESENT /LPF Urine Hyaline Casts 2-5 H /LPF Urine Mucus SMALL H /LPF Urine Culture Indicated CULTURE PENDING Micro Results Microbiology 01/20/20 Blood Culture - Preliminary, Resulted No growth 01/19/20 Blood Culture - Preliminary, Resulted No growth My Orders Orders - SHA HOLDER MD Cbc With Automated Diff (01/20/20 00:04) Comprehensive Metabolic Panel (01/20/20 00:04) Blood Culture (01/20/20 00:04) Urinalysis (01/20/20 00:04) Urine Culture (01/20/20 00:04) Protime With Inr (01/20/20 00:04) Partial Thromboplastin Time (01/20/20 00:04) Chest 1 View, Ap/Pa Only (01/20/20 00:04) Ed Iv/Invasive Line Start (01/20/20 00:04) Troponin I (01/20/20 00:04) Vital Signs Adult Sepsis Patie Q15M (01/20/20 00:04) O2 (01/20/20 00:04) Remove Rings In Anticipation O (01/20/20 00:04) Lactic Acid Analyzer (01/20/20 00:04) Fibrin Degradation Products (01/20/20 00:04) Procalcitonin (Pct) (01/20/20 00:04) Hs C Reactive Protein (01/20/20 00:04) Erythrocyte Sedimentation Rate (01/20/20 00:04) LDH (01/20/20 00:04) Coronavirus Sars-Cov-2 So 2019 (01/20/20 00:04) Ed Iv/Invasive Line Start (01/20/20 00:04) Lactated Ringers (Lr 1000 Ml Iv Solution (01/20/20 00:04) Ondansetron Injection (Zofran Injectio (01/20/20 00:15) BNP (01/20/20 02:19) Medications Given in ED Vital Signs/I&O 01/19/20 01/19/20 01/19/20 01/20/20 23:46 23:46 23:50 00:30 Temp 36.1 36.1 Pulse 84 93 Resp 16 16 B/P (MAP) 87/55 (66) 116/70 Pulse Ox 99 99 O2 Delivery Room Air Room Air Nasal Cannula Nasal Cannula O2 Flow Rate 2.00 2.00 Progress Progress Note : Progress Note Seen and evaluated. IV by EMS with normal saline 1 L bolus initiated. Second IV initiated with LR 1 L bolus. Labs, EKG, chest x-ray, Zofran 4 mg IV and O2 2 L via nasal cannula ordered. Monitor patient. 0045: Systolic blood pressure 90s and low 100s and patient feeling better especially on oxygen. Lactic acid quite elevated. Has no signs of obvious infection currently. We did do COVID-19 swab given community spread. Does have history of heart failure so we will be judicious in fluids. Pending UA. Monitor patient. 0220: Repeat lactic acid normal. I do believe the lactic acidosis was related to hypotension which is likely cardiac related and not infectious related. No indication for antibiotics. Due to patient's significant past cardiac history, admission is indicated. I did discuss the case with Dr. Nash and she agrees. Admit, inpatient status to cardiac step down. COVID-19 swab pending. Blood pressure has improved to greater than 100 systolic and patient feels better. He does still get orthostatic/dizzy when sitting up. We will continue gentle hydration given his history of CHF and admit him. Patient agrees to plan. Discussed with virtual ICU team. Initial ECG Impression Date: Jan 19, 2020 Initial ECG Impression Time: 23:50 Initial ECG Rate: 89 Initial ECG Rhythm: Normal Sinus Comment Sinus rhythm with mild ST depression in the lateral leads although overall very similar to previous of 12/18/18. No evidence of ST elevation ND. Interpreted by me. Diagnostic Imaging Diagonstic Imaging: Xray Plain Films/CT/US/NM/MRI: chest Comments Chest x-ray portable one view shows cardiomegaly without obvious infiltrate or pulmonary edema. Reviewed: Reviewed by Me Departure Communication (Admissions) Time/Spoke to Admitting Phy: 02:20 Impression Primary Impression: Chest pain Qualified Codes: R07.9 - Chest pain, unspecified Additional Impressions: Hypotension Qualified Codes: I95.9 - Hypotension, unspecified COVID-19 evaluation Disposition: ADMITTED INPATIENT Condition: Stable Admissions Decision to Admit Reason: Admit from ER (General) Decision to Admit/Date: Jan 20, 2020 Time/Decision to Admit Time: 02:00 Departure-Patient Inst. Referrals: JUNIOR XIE MD (PCP/Family) Primary Care Physician Scripts Metoprolol Succinate (Toprol Xl) 25 Mg Tab.er.24h 25 MG PO DAILY, #30 TAB 2 Refills Prov: JAMEEL PIMENTEL MD 01/20/20 SHA HOLDER MD Jan 20, 2020 00:44
[2020-01-20 01:55] LABS: BILIRUBIN,URINE NEGATIVE (NEGATIVE); CLARITY,URINE CLEAR; COLOR,URINE YELLOW; GLUCOSE, URINE (UA) NEGATIVE (NEGATIVE); KETONES,URINE NEGATIVE (NEGATIVE); LEUKOCYTE ESTERASE ,URINE NEGATIVE (NEGATIVE); NITRITE,URINE NEGATIVE (NEGATIVE); PH,URINE 6.5 (5-9); PROTEIN,URINE TRACE (NEGATIVE)
[2020-01-20 02:05] LABS: BACTERIA,URINE TRACE /HPF; SQUAMOUS EPITHELIAL CELL,UR 0-2 /HPF
[2020-01-20] MEDS ORDERED: ONDANSETRON 4 MG/2 ML (SDV) Z0FRAN IV PRN (03:45)
[2020-01-20] MEDS ORDERED: LACTATED RINGERS 1,000 ML IV SCH (03:45)
[2020-01-20] MEDS ORDERED: morphine INJ 4 MG/ML 1 ML (VIAL/SYRINGE) IV PRN (03:45)
[2020-01-20 06:17] LABS: BASOPHILS % (AUTO) 0 % (0-10); EOSINOPHILS # (AUTO) 0.1 10^3/uL (0.0-0.3); EOSINOPHILS % (AUTO) 1 % (0-10); HEMATOCRIT 33 % (40-54); HEMOGLOBIN 11.5 G/DL (13.3-17.7); LYMPHOCYTES % (AUTO) 28 % (12-44); MEAN CORPUSCULAR HEMOGLOBIN 29 PG (25-34); MEAN CORPUSCULAR HGB CONC 35 G/DL (32-36); MEAN CORPUSCULAR VOLUME 83 FL (80-99); MEAN PLATELET VOLUME 9.9 FL (7.4-10.4); MONOCYTES # (AUTO) 0.8 X 10^3 (0.0-1.0); MONOCYTES % (AUTO) 6 % (0-12); NEUTROPHILS # (AUTO) 9.3 X 10^3 (1.8-7.8); NEUTROPHILS % (AUTO) 66 % (42-75); PLATELET COUNT 254 10^3/uL (130-400); RED CELL DISTRIBUTION WIDTH 13.4 % (10.0-14.5); WHITE BLOOD COUNT 14.2 10^3/uL (4.3-11.0)
[2020-01-20 06:32] LABS: ALBUMIN 3.5 GM/DL (3.2-4.5); CHLORIDE 104 MMOL/L (98-107); POTASSIUM 4.8 MMOL/L (3.6-5.0); SODIUM 135 MMOL/L (135-145)
[2020-01-20 06:33] LABS: CALCIUM 8.1 MG/DL (8.5-10.1)
[2020-01-20 06:34] LABS: TOTAL PROTEIN 7.1 GM/DL (6.4-8.2); TRIGLYCERIDES 350 MG/DL (<150); VLDL CHOLESTEROL 70 MG/DL (5-40)
[2020-01-20 06:35] LABS: CARBON DIOXIDE 23 MMOL/L (21-32); GLUCOSE 102 MG/DL (70-105)
[2020-01-20 06:36] LABS: BILIRUBIN,TOTAL 0.4 MG/DL (0.1-1.0)
[2020-01-20 06:38] LABS: ALKALINE PHOSPHATASE 65 U/L (40-136); CREATININE SERUM 1.18 MG/DL (0.60-1.30); GFR ESTIMATED > 60
[2020-01-20 06:39] LABS: BUN/CREATININE RATIO 8; CHOLESTEROL 256 MG/DL (< 200)
[2020-01-20 06:40] LABS: HDL CHOLESTEROL 22 MG/DL (40-60)
[2020-01-20 06:41] LABS: ALANINE AMINOTRANSFERASE 15 U/L (0-55)
--- NOTE | 2020-01-20 07:22 | Diagnostic Imaging Report ---
EXAM: CHEST 1 VIEW, AP/PA ONLY INDICATION: Chest pain. COMPARISON: 10/07/2019. FINDINGS: Cardiomegaly with normal central pulmonary vascularity. Sternotomy. No focal pulmonary opacity, pleural effusion or pneumothorax. No acute osseous findings. IMPRESSION: Cardiomegaly with normal central pulmonary vascularity. Dictated by: Dictated on workstation # [id number]
[2020-01-20] MEDS ORDERED: CLOPIDOGREL 75 MG (PLAVIX) TABLET PO SCH (09:00)
--- NOTE | 2020-01-20 10:13 | History & Physical-Hospitalist ---
History of Present Illness Date Seen 01/20/20 Attending Physician Norma Nash Bethany N MD Referring Physician Date of Admission Jan 20, 2020 at 02:25 Home Medications & Allergies Home Medications Reviewed patient Home Medication Reconciliation performed by pharmacy medication reconciliations manufacturing engineering technician and/or nursing. Patients Allergies have been reviewed. Allergies Allergies Coded Allergies prednisone (Verified Allergy, Intermediate, RASH, 04/23/15) hydrocodone (Verified Allergy, Unknown, 04/23/15) venom-honey bee (Verified Allergy, Unknown, 04/23/15) Past Kxemszh-Nhexwl-Yjcwed Hx Past Med/Social Hx: Reviewed Nursing Past Med/Soc Hx Patient Social History Alcohol Use: Occasionally Uses Number of Drinks Today: AA Alcohol Beverage of Choice: Beer Recreational Drug Use: Yes Drug of Choice: MARIJUANA Smoking Status: Former Smoker Former Smoker, Quit: Feb 07, 2000 Type Used: Cigarettes 2nd Hand Smoke Exposure: No Recent Foreign Travel: No Contact w/other who traveled: No Recent Hopitalizations: No Recent Infectious Disease Expo: No Immunizations Up To Date Tetanus Booster (TDap): Unknown Pediatric: No Date of Pneumonia Vaccine: December 03, 2016 Seasonal Allergies Seasonal Allergies: Yes Past Medical History Surgeries: Angioplasty, CABG, Coronary Stent Respiratory: Chronic Bronchitis Currently Using CPAP: Yes (doesnt use it ) Currently Using BIPAP: No Cardiac: Atrial Fibrillation, Congenital Heart Disease, Heart Attack, High Cholesterol, Hypertension Neurological: Stroke, TIA Reproductive: No Sexually Transmitted Disease: No HIV/AIDS: No Gastrointestinal: Gastroesophageal Reflux Musculoskeletal: Chronic Back Pain, Spasms Endocrine: Diabetes, Non-Insulin dep HEENT: Eye Injury, Double Vision Loss of Vision: Right Hearing Impairment: Denies Psychosocial: Sleep Difficulties, Anxiety, Suicide Attempts, Depression History of Blood Disorders: No Adverse Reaction to Blood Reddy: No Family History Reviewed Nursing Family Hx Brain cancer 19 FATHER Congestive heart failure 19 MOTHER Coronary artery disease 19 FATHER Diabetes mellitus 19 MOTHER Heart attack 19 FATHER 19 MOTHER Hypertension 19 FATHER 19 MOTHER Lung cancer 19 FATHER Heart Disease, Cancer, Diabetes Physical Exam Physical Exam Vital Signs Vital Signs - First Documented 01/19/20 23:50 Pulse Ox 99 O2 Flow Rate 2.00 Capillary Refill : Less Than 3 Seconds Height, Weight, BMI Height: 6'1.00" Weight: 277lbs. 0.0oz. 125.181178ua; 37.31 BMI Method:Stated Results Results/Procedures Labs Laboratory Tests 01/19/20 23:55 01/20/20 05:30 Patient resulted labs reviewed. Clinical Quality Measures AMI/AHF: ASA po Prior to arrival: Yes DVT/VTE Risk/Contraindication: Risk Factor Score Per Nursin RFS Level Per Nursing on Admit: 2=Moderate NORMA NASH DO Jan 20, 2020 10:13
--- NOTE | 2020-01-20 12:17 | Short Stay Summary-Hospitalist ---
History of Present Illness HPI/Chief Complaint CC: Hypotension with chest pain HPI: This is a 50yoWM clinic pt of [facility] and Dr. Fitzgerald who presented with hypo tension and chest pain i found to have significant hypotension on exam after assessed give IV fluids, lactic acid was elevated from the volume depletion and that was resolved at time of DC cardiology evaluated him, deemed him stable fo rDC and that was put in place and he will self isolate until covid swab returns. Source: patient Exam Limitations: no limitations Date Seen 01/20/20 Time Seen by a Provider: 10:30 Attending Physician Norma Nash Bethany N MD Referring Physician Date of Admission Jan 20, 2020 at 02:25 Home Medications & Allergies Home Medications Reviewed patient Home Medication Reconciliation performed by pharmacy medication reconciliations mri technician and/or nursing. Patients Allergies have been reviewed. Allergies Allergies Coded Allergies prednisone (Verified Allergy, Intermediate, RASH, 04/23/15) hydrocodone (Verified Allergy, Unknown, 04/23/15) venom-honey bee (Verified Allergy, Unknown, 04/23/15) Past Pdumuym-Whltaw-Vygquo Hx Past Med/Social Hx: Reviewed Nursing Past Med/Soc Hx, Reviewed and Corrections made Patient Social History Marrital Status: single Employed/Student: unemployed Alcohol Use: Occasionally Uses Number of Drinks Today: AA Alcohol Beverage of Choice: Beer Recreational Drug Use: Yes Drug of Choice: MARIJUANA Smoking Status: Former Smoker Former Smoker, Quit: Feb 07, 2000 Type Used: Cigarettes 2nd Hand Smoke Exposure: No Recent Foreign Travel: No Contact w/other who traveled: No Recent Hopitalizations: No Recent Infectious Disease Expo: No Immunizations Up To Date Tetanus Booster (TDap): Unknown Pediatric: No Date of Pneumonia Vaccine: December 03, 2016 Seasonal Allergies Seasonal Allergies: Yes Past Medical History Surgeries: Angioplasty, CABG, Coronary Stent Respiratory: Chronic Bronchitis Currently Using CPAP: Yes (doesnt use it ) Currently Using BIPAP: No Cardiac: Atrial Fibrillation, Congenital Heart Disease, Heart Attack, High Cholesterol, Hypertension Neurological: Stroke, TIA Reproductive: No Sexually Transmitted Disease: No HIV/AIDS: No Gastrointestinal: Gastroesophageal Reflux Musculoskeletal: Chronic Back Pain, Spasms Endocrine: Diabetes, Non-Insulin dep HEENT: Eye Injury, Double Vision Loss of Vision: Right Hearing Impairment: Denies Psychosocial: Sleep Difficulties, Anxiety, Suicide Attempts, Depression History of Blood Disorders: No Adverse Reaction to Blood Reddy: No Family History Reviewed Nursing Family Hx Brain cancer 19 FATHER Congestive heart failure 19 MOTHER Coronary artery disease 19 FATHER Diabetes mellitus 19 MOTHER Heart attack 19 FATHER 19 MOTHER Hypertension 19 FATHER 19 MOTHER Lung cancer 19 FATHER Heart Disease, Cancer, Diabetes Review of Systems Constitutional: see HPI Physical Exam Physical Exam Vital Signs Vital Signs - First Documented 01/19/20 23:50 Pulse Ox 99 O2 Flow Rate 2.00 Capillary Refill : Less Than 3 Seconds Height, Weight, BMI Height: 6'1.00" Weight: 277lbs. 0.0oz. 125.908421zq; 37.31 BMI Method:Stated General Appearance: No Apparent Distress, WD/WN, Obese Neck: Non Tender, Supple Respiratory: Lungs Clear, Normal Breath Sounds Cardiovascular: Regular Rate, Rhythm, No Murmur Gastrointestinal: Non Tender, Soft Extremity: Normal Range of Motion, Non Tender Neurologic/Psychiatric: Alert, Oriented x3 Skin: Normal Color, Warm/Dry Results Results/Procedures Labs Laboratory Tests 01/19/20 23:55 01/20/20 05:30 Patient resulted labs reviewed. Short Stay Diagnosis Discharge Diagnosis-Short Stay Admission Diagnosis Hypotension Dehydration Chest pain Final Discharge Diagnosis Hypotension Dehydration Chest pain Conclusion Plan DC home Diagnosis/Problems Diagnosis/Problems (1) Chest pain Status: Acute Qualifiers: Qualified Codes: R07.9 - Chest pain, unspecified (2) Hypotension Status: Acute Qualifiers: Qualified Codes: I95.9 - Hypotension, unspecified Clinical Quality Measures AMI/AHF: ASA po Prior to arrival: Yes DVT/VTE Risk/Contraindication: Risk Factor Score Per Nursin RFS Level Per Nursing on Admit: 2=Moderate NORMA NASH DO Jan 20, 2020 12:17
--- NOTE | 2020-01-20 13:22 | Consultation-Cardiology ---
HPI-Cardiology Cardiology Consultation Date of Consultation 01/20/20 Date of Admission Time Seen by Provider: 13:14 Indication: syncope HPI 50 years old gentleman with history of coronary artery disease, hypertension. History of syncope in the past. Was in his usual state of health until yesterday evening, went outside to walk. The garden, felt lightheaded and dizzy then laid down on the floor. EMT were called and he was noted to be hypotensive. Patient reported that he had episode of chest pain and shortness of breath with dry heaves and then started throwing up bile material. Did not eat the whole day yesterday. EMT evaluation showed hypotension with blood pressure 70, responded to IV fluid. Then has been doing well. Due to the shortness of breath and chest pain he was tested for COVID. Results are still pending. Currently laying down in bed, asymptomatic, feeling well, not requiring any oxygen. No new complaint Home Medications & Allergies Allergies: Coded Allergies: prednisone (Verified Allergy, Intermediate, RASH, 04/23/15) hydrocodone (Verified Allergy, Unknown, 04/23/15) venom-honey bee (Verified Allergy, Unknown, 04/23/15) Home Medication List Reviewed: Yes NVO-Xiwcxk-Ciovcz Hx Patient Social History Marital Status: Employed/Student: employed Alcohol Use: Occasionally Uses Recreational Drug Use: Yes Drug of Choice: MARIJUANA Smoking Status: Former Smoker Former smoker/When Quit: Apr 07, 1999 Type Used: Cigarettes 2nd Hand Smoke Exposure: No Recent Foreign Travel: No Recent Infectious Disease Expo: No Recent Hopitalizations: No Immunizations Up To Date Tetanus Booster (TDap): Unknown Date of Pneumonia Vaccine: December 03, 2016 Past Medical History Discussed below Family Medical History Significant Family History: Heart Disease, Cancer, Diabetes Family History: Brain cancer 19 FATHER Congestive heart failure 19 MOTHER Coronary artery disease 19 FATHER Diabetes mellitus 19 MOTHER Heart attack 19 FATHER 19 MOTHER Hypertension 19 FATHER 19 MOTHER Lung cancer 19 FATHER Review of Systems-General Review of Systems Constitutional: see HPI; No chills, No fever; weakness EENTM: see HPI, no symptoms reported Respiratory: no symptoms reported, see HPI, dyspnea on exertion Cardiovascular: see HPI, chest pain; No edema, No Hx of Intervention, No palpitations; syncope; No vascular heart diseas, No other Gastrointestinal: no symptoms reported, see HPI Genitourinary: no symptoms reported, see HPI Musculoskeletal: no symptoms reported, see HPI Skin: no symptoms reported, see HPI Psychiatric/Neurological: No Symptoms Reported, See HPI All Other Systems Reviewed Negative Unless Noted: Yes Reviewed Test Results Reviewed Test Results Lab Laboratory Tests Test 01/19/20 23:55 01/20/20 00:05 01/20/20 01:45 01/20/20 01:46 Range/Units White Blood Count 11.9 H 4.3-11.0 10^3/uL Red Blood Count 4.49 4.35-5.85 10^6/uL Hemoglobin 13.1 L 13.3-17.7 G/DL Hematocrit 37 L 40-54 % Mean Corpuscular Volume 82 80-99 FL Mean Corpuscular Hemoglobin 29 25-34 PG Mean Corpuscular Hemoglobin Concent 36 32-36 G/DL Red Cell Distribution Width 13.3 10.0-14.5 % Platelet Count 344 130-400 10^3/uL Mean Platelet Volume 10.0 7.4-10.4 FL Neutrophils (%) (Auto) 65 42-75 % Lymphocytes (%) (Auto) 28 12-44 % Monocytes (%) (Auto) 6 0-12 % Eosinophils (%) (Auto) 1 0-10 % Basophils (%) (Auto) 0 0-10 % Neutrophils # (Auto) 7.7 1.8-7.8 X 10^3 Lymphocytes # (Auto) 3.4 1.0-4.0 X 10^3 Monocytes # (Auto) 0.7 0.0-1.0 X 10^3 Eosinophils # (Auto) 0.1 0.0-0.3 10^3/uL Basophils # (Auto) 0.0 0.0-0.1 10^3/uL Erythrocyte Sedimentation Rate 25 H 0-15 MM/HR Prothrombin Time 24.5 H 12.2-14.7 SEC INR Comment 2.1 H 0.8-1.4 Activated Partial Thromboplast Time 34 24-35 SEC D-Dimer < 0.27 0.00-0.49 UG/ML Sodium Level 138 135-145 MMOL/L Potassium Level 4.0 3.6-5.0 MMOL/L Chloride Level 102 98-107 MMOL/L Carbon Dioxide Level 21 21-32 MMOL/L Anion Gap 15 H 5-14 MMOL/L Blood Urea Nitrogen 9 7-18 MG/DL Creatinine 1.56 H 0.60-1.30 MG/DL Estimat Glomerular Filtration Rate 48 BUN/Creatinine Ratio 6 Glucose Level 131 H 70-105 MG/DL Lactic Acid Level 3.74 *H 1.14 0.50-2.00 MMOL/L Calcium Level 8.9 8.5-10.1 MG/DL Corrected Calcium 8.8 8.5-10.1 MG/DL Total Bilirubin 0.5 0.1-1.0 MG/DL Aspartate Amino Transf (AST/SGOT) 11 5-34 U/L Alanine Aminotransferase (ALT/SGPT) 15 0-55 U/L Alkaline Phosphatase 78 40-136 U/L Lactate Dehydrogenase 204 125-220 U/L Troponin I < 0.028 <0.028 NG/ML C-Reactive Protein High Sensitivity 0.95 H 0.00-0.50 MG/DL B-Type Natriuretic Peptide 45.7 <100.0 PG/ML Total Protein 7.5 6.4-8.2 GM/DL Albumin 4.1 3.2-4.5 GM/DL Procalcitonin 0.07 <0.10 NG/ML Urine Color YELLOW Urine Clarity CLEAR Urine pH 6.5 5-9 Urine Specific [place] 1.020 1.016-1.022 Urine Protein TRACE H NEGATIVE Urine Glucose (UA) NEGATIVE NEGATIVE Urine Ketones NEGATIVE NEGATIVE Urine Nitrite NEGATIVE NEGATIVE Urine Bilirubin NEGATIVE NEGATIVE Urine Urobilinogen 0.2 < = 1.0 MG/DL Urine Leukocyte Esterase NEGATIVE NEGATIVE Urine RBC (Auto) NEGATIVE NEGATIVE Urine RBC NONE /HPF Urine WBC NONE /HPF Urine Squamous Epithelial Cells 0-2 /HPF Urine Crystals NONE /LPF Urine Bacteria TRACE /HPF Urine Casts PRESENT /LPF Urine Hyaline Casts 2-5 H /LPF Urine Mucus SMALL H /LPF Urine Culture Indicated CULTURE PENDING Test 01/20/20 05:30 01/20/20 11:50 Range/Units White Blood Count 14.2 H 4.3-11.0 10^3/uL Red Blood Count 3.95 L 4.35-5.85 10^6/uL Hemoglobin 11.5 L 13.3-17.7 G/DL Hematocrit 33 L 40-54 % Mean Corpuscular Volume 83 80-99 FL Mean Corpuscular Hemoglobin 29 25-34 PG Mean Corpuscular Hemoglobin Concent 35 32-36 G/DL Red Cell Distribution Width 13.4 10.0-14.5 % Platelet Count 254 130-400 10^3/uL Mean Platelet Volume 9.9 7.4-10.4 FL Neutrophils (%) (Auto) 66 42-75 % Lymphocytes (%) (Auto) 28 12-44 % Monocytes (%) (Auto) 6 0-12 % Eosinophils (%) (Auto) 1 0-10 % Basophils (%) (Auto) 0 0-10 % Neutrophils # (Auto) 9.3 H 1.8-7.8 X 10^3 Lymphocytes # (Auto) 4.0 1.0-4.0 X 10^3 Monocytes # (Auto) 0.8 0.0-1.0 X 10^3 Eosinophils # (Auto) 0.1 0.0-0.3 10^3/uL Basophils # (Auto) 0.0 0.0-0.1 10^3/uL Sodium Level 135 135-145 MMOL/L Potassium Level 4.8 3.6-5.0 MMOL/L Chloride Level 104 98-107 MMOL/L Carbon Dioxide Level 23 21-32 MMOL/L Anion Gap 8 5-14 MMOL/L Blood Urea Nitrogen 9 7-18 MG/DL Creatinine 1.18 0.60-1.30 MG/DL Estimat Glomerular Filtration Rate > 60 BUN/Creatinine Ratio 8 Glucose Level 102 70-105 MG/DL Calcium Level 8.1 L 8.5-10.1 MG/DL Corrected Calcium 8.5 8.5-10.1 MG/DL Total Bilirubin 0.4 0.1-1.0 MG/DL Aspartate Amino Transf (AST/SGOT) 26 5-34 U/L Alanine Aminotransferase (ALT/SGPT) 15 0-55 U/L Alkaline Phosphatase 65 40-136 U/L Troponin I < 0.028 < 0.028 <0.028 NG/ML Total Protein 7.1 6.4-8.2 GM/DL Albumin 3.5 3.2-4.5 GM/DL Triglycerides Level 350 H <150 MG/DL Cholesterol Level 256 H < 200 MG/DL LDL Cholesterol Direct 182 H 1-129 MG/DL VLDL Cholesterol 70 H 5-40 MG/DL HDL Cholesterol 22 L 40-60 MG/DL Physical Exam Physical Exam Vital Signs Vital Signs - First Documented 01/19/20 23:50 Pulse Ox 99 O2 Flow Rate 2.00 Capillary Refill : Less Than 3 Seconds Height, Weight, BMI Height: 6'1.00" Weight: 277lbs. 0.0oz. 125.549057tu; 37.31 BMI Method:Stated General Appearance: No Apparent Distress, WD/WN, Obese Eyes: Bilateral Eye Normal Inspection, Bilateral Eye PERRL, Bilateral Eye EOMI HEENT: PERRL/EOMI, TMs Normal, Normal ENT Inspection, Pharynx Normal, Moist Mucous Membranes Neck: Non Tender, Supple Respiratory: Lungs Clear, Normal Breath Sounds Cardiovascular: Regular Rate, Rhythm, No Murmur Gastrointestinal: Non Tender, Soft Back: Normal Inspection, No CVA Tenderness, No Vertebral Tenderness Extremity: Normal Range of Motion, Non Tender Neurologic/Psychiatric: Alert, Oriented x3 Skin: Normal Color, Warm/Dry Lymphatic: No Adenopathy A/P-Cardiology Admission Diagnosis Syncope Coronary artery disease Hypertension Hyperlipidemia Assessment/Plan Syncope, probably hypotensive episode. Responded to IV fluid, has been feeling well since then, cardiac enzymes were negative. COVID testing pending, patient is currently asymptomatic, okay for discharge from cardiology standpoint and continue to be on home isolation until the COVID test results return Coronary artery disease, history of CABG 5 done in 2008, history of 4 stents, last 2 stents were placed in 2012. Cardiac catheterization was done on April 26, 2015 with successful balloon angioplasty for 90 percent in-stent restenosis in the right posterior descending artery. Distal right PDA had 80 percent stenosis, very small artery not amendable to intervention. Patent stent in the proximal circumflex artery. Occluded stent in the obtuse marginal branch. Occluded LAD a with known patent REYES to LAD. Repeat cardiac catheterization was done in February [address] Joseph as occlusion of the LAD, ostial occlusion of the proximal OM, 80 percent stenosis at the distal small right PDA, left to left and [id number] collateral filling the OM system, 2 occluded vein graft presumably to the OM and right coronary artery, patent REYES to LAD, patient has significant disease in the distal LAD. Most recently underwent cardiac catheterization with Dr. Evangelista July 2016 with successful percutaneous revascularization of severe PDA branch disease with 2.5 x 32 mm Promus drug-eluting stent, and a 2.25 x 12 mm Promus drug-eluting stent to the PDA. Repeat cardiac catheterization was done after having an abnormal stress test on February 06, [address] Shanks which showed patent REYES to LAD, known occluded vein graft, severe three affiliated coronary artery disease, normal FFR to the circumflex artery, severely reduced FFR to the right PDA was successful balloon angioplasty using 2.530 mm balloon with good results. Cardiac catheterization was repeated on December 03, 2018 showing severe instent restenosis in the right posterior descending branch had significant stenosis, underwent Emerge balloon angioplasty using 2.5 x 20 mm expanded to 2.7 mm and her high pressure with good results, moderate disease in the midright coronary artery treated medically, patent stent in the circumflex artery with occluded obtuse marginal branch and the vein graft to the obtuse marginal branch, occluded LAD and patent REYES to LAD, there are 2 other vein grafts one of them to the obtuse marginal branch and probably the other one to the right coronary artery were occluded. Patient has been scheduled for stress test as an outpatient. Chest pain resembling angina, history of chronic stable angina, reporting some improvement. Continue to monitor Congestive heart failure, ejection fraction during the stress test was 35 percent, on echocardiogram it was 50-55 percent with grade 2 diastolic dysfunction, estimated pulmonary artery pressure of 20 mmHg, overall it was a suboptimal study. Planning to evaluate stress test as an echocardiogram as an outpatient History of CVA, maintained on Xarelto, continue to monitor at this time. Hypertension, patient was seen in the emergency room in the past with hypotension and Norvasc was discontinued. He was maintained on MAIKEL inhibitor and low-dose beta blockers. Currently had a syncopal episode probably hypotension. Agree with stopping MAIKEL inhibitor at this time and monitor. Hyperlipidemia, maintained on Vascepa and Lipitor, poorly controlled at this time. Paroxysmal atrial fibrillation/flutter, currently in sinus rhythm. Maintained on Xarelto. Recurrent palpitation, short-lived, associated with some chest pain, better after increasing beta blockers. Continue to monitor Mild bilateral carotid stenosis, ultrasound was done in March 2018, continue to monitor Diabetes mellitus, followed and managed by primary care physician History of COPD, c/o increased dyspnea recently. Requesting to f/u with oscar malik. I will schedule him with Dr. Dillon for further evaluation. History of sleep apnea, patient reports noncompliance with CPAP and no longer has it, not using C Pap machine. Morbid obesity, BMI 33. Educated on weight loss Depression, difficult to control, was hospitalized in July, feeling better at this time Family history of heart disease Clinical Quality Measures AMI/AHF: ASA po Prior to arrival: Yes DVT/VTE Risk/Contraindication: Risk Factor Score Per Nursin RFS Level Per Nursing on Admit: 2=Moderate JAMEEL PIMENTEL MD Jan 20, 2020 13:21
[2020-01-20] MEDS ORDERED: METO-351 PO (13:24)
[2020-01-20] MEDS ORDERED: RIVAROXABAN 20 MG TABLET (XARELTO) PO SCH (17:00)
== END 2020-01-20 15:05 | disposition home or self-care (01) | DRG 316 ==
LOC: EDUNIT# 23:46 → ER 23:47 → ICU 01-20 02:25
PROVIDERS: ADMIT Internal Medicine; ATTEND Internal Medicine
DX: I95.9 Hypotension, unspecified (principal); R07.9 Chest pain, unspecified; E86.0 Dehydration; E78.5 Hyperlipidemia, unspecified; Z20.828 Contact with and (suspected) exposure to other viral communicable diseases; E66.01 Morbid (severe) obesity due to excess calories; J44.9 Chronic obstructive pulmonary disease, unspecified; E11.9 Type 2 diabetes mellitus without complications; I65.23 Occlusion and stenosis of bilateral carotid arteries; F32.9 Major depressive disorder, single episode, unspecified; I25.119 Atherosclerotic heart disease of native coronary artery with unspecified angina pectoris; I50.9 Heart failure, unspecified; I11.0 Hypertensive heart disease with heart failure; Z68.33 Body mass index [BMI] 33.0-33.9, adult; Z95.1 Presence of aortocoronary bypass graft; Z86.73 Personal history of transient ischemic attack (TIA), and cerebral infarction without residual deficits; Z88.5 Allergy status to narcotic agent; Z79.82 Long term (current) use of aspirin
CPT/HCPCS: 36415; 71045; 80053; 80061; 81000; 83605; 83615; 83880; 84145; 84484; 85025; 85379; 85610; 85652; 85730; 86141; 87040; 87088; 87635; 93005

== ENCOUNTER 2020-03-02 12:51 | Outpatient (CLI) | payer MEDICAID ==
[~2020-03-02 12:51] MED LIST changes: +METO-351 PO; -ONDANSETRON 4 MG/2 ML (SDV) Z0FRAN ONE; -WARF10TA44 PO; +WRF10T PO
== END 2020-03-02 13:27 | disposition home or self-care (01) ==
LOC: SLEEP 12:51
PROVIDERS: ATTEND Nurse Practitioner Family
DX: G47.33 Obstructive sleep apnea (adult) (pediatric) (principal)

== ENCOUNTER → 2020-06-15 | Outpatient (CLI) | payer MEDICARE, MEDICAID ==
[~2020-06-15] VITALS: Ht 185 cm; Wt 131.0 kg
[~2020-06-15] MED LIST changes: +AMLO-250 PO; -AMLO5TAB9 PO; +ASPI-1238 PO; -ASPI-983 PO; +CATHETER FLUSH 10 ML SYR IV PRN; -PANT40TA3; -PANT40TA3 PO; +PANT40TA52; +PANT40TA52 PO; +REGADENOSON 0.4 MG/5 ML SYR (LEXISCAN) IV ONE
[2020-06-15 09:01] VITALS: BP 115/80
--- NOTE | 2020-06-15 15:51 | Cardiology Stress Test Report ---
Stress Test Report Date of Procedure/Referring: Date of Procedure: Jun 15, 2020 PCP Jameel Fitzgerald MD Admitting Physician Marta Lauren MD Indications: Coronary artery disease Baseline Heart Rate: 98 Baseline Blood Pressure: Blood Pressure Systolic: 115 Blood Pressure Diastolic: 80 Baseline Vitals Vital Signs Date Time Temp Pulse Resp B/P (MAP) Pulse Ox O2 Delivery O2 Flow Rate FiO2 06/15/20 09:01 93 18 115/80 (92) 97 Room Air Summary After explaining the procedure to the patient, he signed a consent and then brought to the stress nuclear laboratory. Patient received 0.4 mg Lexiscan for stress test, ECG, heart rate and blood pressure were monitored continuously. Resting and stress dose of radio tracer were injected, imaging was acquired and reviewed in short axis, horizontal long axis and vertical long axis views. TID: 1.17 SSS: 21 SDS: 5 EF: 44 1. Patient tolerated Lexiscan well 2. Decrease uptake involving the whole anterior wall anterolateral wall and true apex, mild reversibility involving the mid to apical anterolateral and inferolateral wall 3. Normal left ventricle with hypokinesia of the anterior wall and lateral wall, EF 44 percent JAMEEL FITZGERALD MD Jun 15, 2020 15:51
== END ==
LOC: CARD 07:30
PROVIDERS: ATTEND Internal Medicine Cardiovascular Disease
DX: I25.10 Atherosclerotic heart disease of native coronary artery without angina pectoris (principal); I10 Essential (primary) hypertension; E78.2 Mixed hyperlipidemia
CPT/HCPCS: 78452; 93017; A9502

== ENCOUNTER 2020-07-06 09:00 | Day surgery (SDC) | payer MEDICARE, MEDICAID ==
[~2020-07-06] VITALS: Ht 185 cm; Wt 130.0 kg
[2020-07-06] VITALS (13 sets, daily range): BP systolic 89–140; BP diastolic 67–93
[2020-07-06 07:33] LABS: HEMOGLOBIN 11.9 g/dL (13.3-17.7); MEAN PLATELET VOLUME 9.7 fL (9.0-12.2); WHITE BLOOD COUNT 13.6 10^3/uL (4.3-11.0)
[2020-07-06 07:37] LABS: CLARITY,URINE CLEAR; COLOR,URINE YELLOW; GLUCOSE, URINE (UA) NEGATIVE (NEGATIVE); KETONES,URINE TRACE (NEGATIVE); LEUKOCYTE ESTERASE ,URINE NEGATIVE (NEGATIVE); NITRITE,URINE NEGATIVE (NEGATIVE); PH,URINE 5.5 (5-9); PROTEIN,URINE TRACE (NEGATIVE)
--- NOTE | 2020-07-06 07:41 | Diagnostic Imaging Report ---
INDICATION: Abnormal stress test. Hypertension. Chest pain Portable chest shows the heart size to be upper normal. The vascularity is normal. The lungs are clear. There is no effusion or pneumothorax. There are changes of prior CABG. IMPRESSION: No acute abnormality is seen with no change from 01/20/2020. Dictated by: Dictated on workstation # [id number]
[2020-07-06 07:44] LABS: ALBUMIN 4.2 GM/DL (3.2-4.5); POTASSIUM 4.1 MMOL/L (3.6-5.0)
[2020-07-06 07:45] LABS: CALCIUM 8.3 MG/DL (8.5-10.1)
[2020-07-06 07:47] LABS: AMORPHOUS SEDIMENT,UR MOD AMOR URATES /LPF; BACTERIA,URINE TRACE /HPF; GRANULAR CASTS,URINE 0-2 /LPF; TOTAL PROTEIN 7.4 GM/DL (6.4-8.2); WBC,URINE 0-2 /HPF
[2020-07-06 07:48] LABS: BILIRUBIN,TOTAL 0.5 MG/DL (0.1-1.0)
[2020-07-06 07:50] LABS: CREATININE SERUM 1.37 MG/DL (0.60-1.30)
[2020-07-06 07:51] LABS: BILIRUBIN,URINE NEGATIVE (NEGATIVE); INR 1.1 (0.8-1.4); PROTHROMBIN TIME PATIENT 14.1 SEC (12.2-14.7)
[~2020-07-06 09:00] MED LIST changes: +ACET-3075 PO; -CATHETER FLUSH 10 ML SYR IV PRN; +FLUT1BLS IH; +GABA300C PO; +HEParin (CATH LAB) 2,000 ML IV ONE; +LIDOCAINE 1% INJ 20 ML 20 ML VIAL ONE; +LISI-556 PO; +METF-399 PO; +MTP25TSR PO; +NITR0.4T39 SL; +NS IV 1000 ML 1,000 ML IV SCH; +NS IV 1000 ML 1,000 ML ONE; -REGADENOSON 0.4 MG/5 ML SYR (LEXISCAN) IV ONE
[2020-07-06] MEDS ORDERED: MIDAZOLAM 5 MG/5 ML (VERSED) VIAL ONE (09:30)
[2020-07-06] MEDS ORDERED: fentaNYL INJECTION 100 MCG/2 ML AMP ONE (09:31)
--- NOTE | 2020-07-06 09:34 | Cardiac Procedure Note-CS/ASA ---
Pre-Procedure Note Pre-Op Procedure Note H&P Reviewed The H&P was reviewed, patient examined and no changes noted. Date H&P Reviewed: Jul 06, 2020 Time H&P Reviewed: 09:34 Conscious Sedation Pre-Proced Time 09:34 ASA Score 3 For ASA 3 and 4: Consider anesthesia and medical clearance. Also, for patients with a history of failed moderate sedation consider anesthesia. Airway Lungs Heart ASA score ASA 1: a normal healthy patient ASA 2: a patient with a mild systemic disease (mid diabetes, controlled hypertension, obesity x ASA 3: a patient with a severe systemic disease that limits activity (angina, COPD, prior Myocardial infarction) ASA 4: a patient with an incapacitating disease that is a constant threat to life (CHF, renal failure) ASA 5: a moribund patient not expected to survive 24 hrs. (ruptured aneurysm) ASA 6: a declared brain- patient whose organs are being harvested. For emergent operations, add the letter E after the classification Mallampati Classification Grade 3 Sedation Plan Analgesia, Amnesia, Plan communicated to team members, Discussed options with patient/fam, Discussed risks with patient/fam The patient is an appropriate candidate to undergo the planned procedure, sedation, and anesthesia. The patient immediately re-assessed prior to indication. JAMEEL PIMENTEL MD Jul 06, 2020 09:34
[2020-07-06] MEDS ORDERED: HEParin 1000 UNIT/ML (10ML VIAL) FOR BOLUS ONE (10:01)
[2020-07-06] MEDS ORDERED: NITRO DRIP 25000 MCG/D5W 250 ML IV ONE (10:01)
[2020-07-06] MEDS ORDERED: ASPIRIN 325 MG (5 GR) TABLET ONE (10:19)
[2020-07-06] MEDS ORDERED: CLOPIDOGREL 300 MG (PLAVIX) TABLET PO ONE (10:19)
[2020-07-06] MEDS ORDERED: NS IV 1000 ML 1,000 ML IV SCH (10:22)
[2020-07-06] MEDS ORDERED: METF-399 PO (10:24)
--- NOTE | 2020-07-06 10:25 | Discharge Inst-Post CATH ---
Discharge Inst-CATH/EP Problems Reviewed?: Yes Post Cardiac Cath/EP D/C Inst Follow Up/Plan Hold metformin for [address] PIMENTEL's office in 2-4 weeks <b>CARDIAC CATH/EP PROCEDURE DISCHARGE INSTRUCTIONS</b> ACTIVITY * Go Home directly and rest. * Limit activity of the leg (or wrist if it was used) for 7 days including aerobics, swimming, jogging, bicycling, etc. * Restrict stair-climbing for 7 days if possible, if not, climb up with your non-cath leg, then bring together on the same step. * Avoid lifting, pushing, pulling or excessive movement of the affected extremity for 7 days. * Customary sexual activity may be resumed after 2 days-use caution not to use a position that strains or causes pain to the affected extremity. * No driving for 24 hours. * NO SMOKING. * Avoid straining for bowel movements for 7 days. * Gentle walking on level ground is allowed. * Returning to work will depend on the type of procedure and the results. Your doctor will discuss this with you. CALL YOUR DOCTOR FOR ANY OF THE FOLLOWING: *If bleeding from the puncture site occurs- Apply gentle pressure to site with clean cloth and call your doctor or EMS. * If a knot or lump forms under the skin, increases in size, or causes pain. * If bruising appears to be worsening or moving further down your leg instead of disappearing. * Temperature above 101 F. CARE OF YOUR GROIN INCISION; * Bruising or purple discoloration of the skin near the puncture site is common. * You may shower only, no bathtub bathing for 5 days. Be careful to avoid slipping as your leg may feel stiff. * If a closure device was used on your femoral artery, please see the attached guide regarding care of the device and your leg. * Leave dressing on FOR 24 hours. CARE OF YOUR WRIST INCISION; * Bruising or purple discoloration of the skin near the puncture site is common. * You may shower. * DO NOT submerge wrist. * Leave dressing on FOR 24 hours. JAMEEL PIMENTEL MD Jul 06, 2020 10:25
[2020-07-06] MEDS ORDERED: PATIENT MAY USE OWN MEDS, ALL PO SCH (10:30)
--- NOTE | 2020-07-06 10:33 | Cardiac Cath Report ---
Cardiac Cath Report Physician (s)/Aeronautics Teacher (s) Physician JAMEEL PIMENTEL MD Pre-Procedure Diagnosis Pre-Procedure Diagnosis: chest pain, coronary artery disease Post-Procedure Note Procedure Start Date: Jul 06, 2020 Name of Procedure: Left heart catheterization REYES angiogram PTCA to the RCA Findings/Procedure Note PROCEDURE NOTE: 50 years old gentleman with extensive coronary artery disease, CABG, multiple intervention, had an abnormal stress test, scheduled for cardiac catheterization possible PTCA. After explaining the procedure to the patient, all pros and cons were explained, all questions were answered. The patient signed the consent and then he was placed on the cardiac catheterization laboratory. Groin was prepped SL fashion local anesthesia was used. Sheath placed in the right femoral artery. Leodan right and left catheter were used to access the coronary system. REYES angiogram was done FR catheter was advanced to the left ventricular cavity, pressure was measured, pullback LV to aorta was done. Patient has severe stenosis within the stent in the right PDA, 6000 units of heparin were given, FR guide was advanced then BMW wire was placed distally, 2.5 x 20 mm balloon was advanced within the severe stenosis within the stent, 2 inflation up to 15 gurjit were done, last angioplasty there was significant improvement with no residual stenosis At the end of the procedure the sheath was removed. Closure device was deployed FINDINGS: Hemodynamics LV 95/10, end-diastolic pressure of 10 Aorta 80/42 mean of 45 ANATOMY: Left Main is bifurcating to LAD and circumflex artery with no obstructive disease Left Anterior Descending has a patent stent proximally, proximal to the stent there is 50-60 percent stenosis, borderline lesion, REYES to LAD is patent Left Circumflex is small artery with moderate disease nonobstructive disease Right Coronory Artery is large dominant artery and 2 stents in the right PDA with severe in-stent restenosis balloon angioplasty using 2.5 x 20 mm Trek balloon inflated up to 2.6 mm with excellent results REYES to LAD is patent with small vessel disease distally 2 vein grafts are known to be occluded LV Gram was not done, pressure was measured CONCLUSION: 1. Severe in-stent restenosis in the right PDA successful balloon angioplasty using 2.5 x 20 mm balloon with excellent results 2. Patent REYES to LAD 3. Patent stent in the proximal LAD with borderline lesion proximal to the stent 50-60 percent stenosis. We'll continue to monitor closely 4. Moderate disease in the circumflex artery, nonobstructive disease 5. Known occluded 2 vein grafts DISCUSSION AND RECOMMENDATION: Continue to maximize medical therapy. Anesthesia Type: Conscious Sedation Estimated blood loss (mL): 25 ml Contrast Amount: 39 ml Total Radiation Dose: 1091 mGy Post-Procedure Diagnosis Post-operative diagnosis: Chest pain Coronary artery disease Hypertension Hyperlipidemia JAMEEL PIMENTEL MD Jul 06, 2020 10:33
[2020-07-06] MEDS ORDERED: ATOR20TA66 PO (10:55)
[2020-07-06] MEDS ORDERED: ATOR40TA PO (12:27)
--- NOTE | 2020-07-06 12:46 | NUR ---
SPOKE WITH THE PT (HE HAD HIS HOME MEDS WITH HIM) TO COMPLETE THE MED REC 07-27-2019 BACLOFEN 20MG #90 (PT'S BOTTLE SAYS 01-31-2019 HOWEVER SAMIBENITA HAD A MORE CURRENT FILL DATE ON FILE) 03-14-2020 PANTOPRAZOLE 40MG #90/90DS 03-31-2020 RANEXA 1000MG #180/90DS 04-01-2020 ATORVASTATIN 20MG #90/90DS 04-01-2020 ISOSORBIDE MONO ER 60MG #90/90DS 04-01-2020 CLOPIDOGREL 75MG #90/90DS 04-12-2020 VASCEPA 1GM #360/90DS 04-12-2020 XARELTO 20MG #90/90DS 04-27-2020 METOPROLOL SUCC ER 25MG #90/90DS 05-09-2020 LISINOPRIL 5MG #90/90DS 05-11-2020 METFORMIN 1000MG #180/90DS 05-26-2020 GABAPENTIN 300MG #270/90DS 06-01-2020 BUSPIRONE 10MG #180/30DS 06-06-2020 MECLIZINE 25MG #90 06-13-2020 DESVENLAFAXINE ER 100MG #30/30DS 06-20-2020 TRAZODONE 100MG #30/30DS 07-05-2020 BREO ELIPITA #1/30DS PT HAS A BOTTLE OF PROMETHAZINE 50MG WITH HIM- HOWEVER THE DATE ON THE BOTTLE SHOWS 06-19-2016, FOR THIS REASON I DID NOT INCLUDE THIS ON THE MED REC
== END 2020-07-06 16:13 | disposition home or self-care (01) ==
LOC: CATH 09:00 → SDC 10:34 → CATH 16:13
PROVIDERS: ATTEND Internal Medicine Cardiovascular Disease
DX: I25.10 Atherosclerotic heart disease of native coronary artery without angina pectoris (principal); E78.2 Mixed hyperlipidemia; G47.33 Obstructive sleep apnea (adult) (pediatric); J44.9 Chronic obstructive pulmonary disease, unspecified; I11.0 Hypertensive heart disease with heart failure; I50.9 Heart failure, unspecified; I65.23 Occlusion and stenosis of bilateral carotid arteries; E11.9 Type 2 diabetes mellitus without complications; F32.9 Major depressive disorder, single episode, unspecified; E66.01 Morbid (severe) obesity due to excess calories; Z68.38 Body mass index [BMI] 38.0-38.9, adult; Z79.51 Long term (current) use of inhaled steroids; Z79.899 Other long term (current) drug therapy; Z79.84 Long term (current) use of oral hypoglycemic drugs; Z88.5 Allergy status to narcotic agent; Z91.030 Bee allergy status; Z88.8 Allergy status to other drugs, medicaments and biological substances; Z87.891 Personal history of nicotine dependence
CPT/HCPCS: 71045; 80053; 80061; 81000; 85027; 85610; 85730; 87081; 93453; C1725; C1760; C1769; C1887; C1894; C9600; 36415

== ENCOUNTER 2020-09-02 07:18 | Inpatient (IN) | payer MEDICARE, MEDICAID ==
[2020-09-02] VITALS (15 sets, daily range): BP systolic 93–153; BP diastolic 59–89
[~2020-09-02] VITALS: Ht 185 cm; Wt 131.0 kg
[~2020-09-02 07:18] MED LIST changes: +ATOR20TA66 PO; +ATOR40TA PO; -HEParin (CATH LAB) 2,000 ML IV ONE; -LIDOCAINE 1% INJ 20 ML 20 ML VIAL ONE; -NS IV 1000 ML 1,000 ML IV SCH; -NS IV 1000 ML 1,000 ML ONE
--- NOTE | 2020-09-02 08:07 | ED Chest Pain ---
General Chief Complaint: Chest Pain Stated Complaint: ANGINA/CP, DIZZINESS Nursing Triage Note: Patient states chest pain x 4 days that has not improved. Patient states left sided chest pain rating 6/10 that is intermittently sharp and dull pain. He states that it intermittently hurts to take a deep breath. Patient had multiple stents placed approximately 6 months ago. Nursing Sepsis Screen: No Definite Risk Source: patient Exam Limitations: no limitations History of Present Illness Date Seen by Provider: Sep 02, 2020 Time Seen by Provider: 07:50 Initial Comments Patient is a 50-year-old male who presents to the emergency department today with a chief complaint of nausea vomiting diarrhea and substernal chest pain onset over the last 4 days. Patient states that for the last several weeks he has been having morning vomiting and he describes it as greenish and like bile. Patient still has a gallbladder. He also endorses multiple episodes of diarrhea that is nonblack nonbloody. He states the chest pain started concurrently with his nausea vomiting and diarrhea. He describes the pain as almost a crushing and squeezing type pain that will radiate sometimes into his right arm and into his right thumb. He states nothing really makes the pain any better. He states any type of exertion can make the pain worse. He endorses nausea with the chest pain. He is short of breath with the chest pain. He has a fairly extensive cardiac history with having quintuple bypass and multiple stents after bypass. Most recent angioplasty was in July 2020. Patient states that he is compliant with his daily medications. He is not currently taking aspirin however he states with all of the changes to his medications he is not certain whether or not he supposed to be on aspirin. Patient will be given a dose of 324 mg of baby aspirin this morning. He is also on Plavix and Xarelto. Patient denies any recent febrile illnesses, URI symptoms, urinary symptoms. No sick contacts. All other review of systems reviewed and negative except as stated above. Timing/Duration: 3-4 days Severity/Quality: moderate, pressure, sharp Location: substernal Radiation: other (Right arm) Activities at Onset: none Prior CP/Workup: angina, cardiac cath, heart attack ASA po DIRECTOR OF HOME ECONOMICS: No NTG SL DIRECTOR OF HOME ECONOMICS: Yes Associated Symptoms: abdominal pain (Left lower quadrant), nausea/vomiting Allergies and Home Medications Allergies Coded Allergies: prednisone (Verified Allergy, Intermediate, RASH, 04/23/15) hydrocodone (Verified Allergy, Unknown, 04/23/15) venom-honey bee (Verified Allergy, Unknown, 04/23/15) Home Medications Acetaminophen/Diphenhydramine 1 Each Tablet, 2 EACH PO HS PRN for SLEEP, (Reported) Albuterol Sulfate 18 Gm Hfa.aer.ad, 2 PUFF INH Q6H PRN for SHORTNESS OF BREATH, (Reported) Atorvastatin Calcium 40 Mg Tablet, 40 MG PO DAILY Prescribed by: JAMEEL FITZGERALD on 07/06/20 1227 Baclofen 20 Mg Tablet, 20 MG PO TID PRN for MUSCLE SPASMS, (Reported) Buspirone HCl 10 Mg Tablet, 20 MG PO TID, (Reported) TAKES 2 (10MG) TABLETS Clopidogrel Bisulfate 75 Mg Tablet, 75 MG PO 1800, (Reported) Desvenlafaxine Succinate 100 Mg Tab.er.24h, 100 MG PO 1800, (Reported) Fluticasone/Vilanterol 1 Each Blst.w.dev, 1 EACH IH DAILY, (Reported) Gabapentin 300 Mg Capsule, 300 MG PO TID PRN for PAIN-BREAKTHROUGH, (Reported) Icosapent Ethyl 1 Gm Capsule, 2 GM PO BID, (Reported) TAKES 2 (1GM) CAPSULES Isosorbide Mononitrate 60 Mg Tab, 60 MG PO 1800, (Reported) Lisinopril 5 Mg Tablet, 5 MG PO 1800, (Reported) Meclizine HCl 25 Mg Tablet, 25 MG PO QID PRN for VERTIGO/DIZZINESS, (Reported) Metformin HCl 1,000 Mg Tablet, 1,000 MG PO BID WITH MEALS Hold metformin for 48 hours Prescribed by: JAMEEL FITZGERALD on 07/06/20 1024 Metoprolol Succinate 25 Mg Tab.er.24h, 25 MG PO 1800, (Reported) Nitroglycerin 0.4 Mg Tab.subl, 0.4 MG SL UD PRN for CHEST PAIN, (Reported) Pantoprazole Sodium 40 Mg Tablet.dr, 40 MG PO 1800, (Reported) Ranolazine 1,000 Mg Tab.er.12h, 1,000 MG PO BID, (Reported) Rivaroxaban 20 Mg Tablet, 20 MG PO 1800, (Reported) Trazodone HCl 100 Mg Tablet, 50-100 MG PO HS, (Reported) Patient Home Medication List Home Medication List Reviewed: Yes Review of Systems Review of Systems Constitutional: see HPI EENTM: No Symptoms Reported Respiratory: SOA at Rest Cardiovascular: Chest Pain Gastrointestinal: Abdominal Pain; Denies Blood Streaked Stools; Diarrhea, Nausea; Denies Rectal Bleeding; Vomiting Genitourinary: No Symptoms Reported Musculoskeletal: no symptoms reported Skin: no symptoms reported All Other Systems Reviewed Negative Unless Noted: Yes Past Dqesglv-Tdichl-Npfetm Hx Patient Social History Alcohol Use: Occasionally Uses Number of Drinks Today: AA Alcohol Beverage of Choice: Beer Drug of Choice: MARIJUANA Type Used: Cigarettes Former Smoker, Quit: Feb 07, 2000 2nd Hand Smoke Exposure: No Recent Infectious Disease Expo: No Recent Hopitalizations: No Immunizations Up To Date Tetanus Booster (TDap): Unknown PED Vaccines UTD: No Date of Pneumonia Vaccine: December 03, 2016 Date of Influenza Vaccine: May 11, 2020 Seasonal Allergies Seasonal Allergies: Yes Past Medical History Surgeries: Yes Angioplasty, CABG, Coronary Stent Respiratory: Yes COPD, Emphysema Currently Using CPAP: Yes (doesnt use it ) Currently Using BIPAP: No Cardiac: Yes Atrial Fibrillation, Congenital Heart Disease, Heart Attack, High Cholesterol, Hypertension Neurological: Yes Stroke, TIA Reproductive Disorders: No Sexually Transmitted Disease: No HIV/AIDS: No Genitourinary: No Gastrointestinal: Yes Gastroesophageal Reflux Musculoskeletal: Yes (SCIATICA) Chronic Back Pain, Spasms Endocrine: Yes Diabetes, Non-Insulin dep HEENT: Yes Eye Injury, Double Vision Loss of Vision: Right Hearing Impairment: Denies Cancer: No Psychosocial: Yes (OCD; INTENTIONAL OVERDOSE/SUICIDE ATTEMPT 06/2017) Sleep Difficulties, Anxiety, Suicide Attempts, Depression Integumentary: No Blood Disorders: No Adverse Reaction/Blood Tranf: No Family Medical History Brain cancer 19 FATHER Congestive heart failure 19 MOTHER Coronary artery disease 19 FATHER Diabetes mellitus 19 MOTHER Heart attack 19 FATHER 19 MOTHER Hypertension 19 FATHER 19 MOTHER Lung cancer 19 FATHER Heart Disease, Cancer, Diabetes Physical Exam Vital Signs Vital Signs - First Documented Capillary Refill : Less Than 3 Seconds Height, Weight, BMI Height: 6'1.00" Weight: 277lbs. 0.0oz. 125.609363tv; 38.00 BMI Method:Stated General Appearance: No Apparent Distress, WD/WN HEENT: PERRL/EOMI Respiratory: Lungs Clear, Normal Breath Sounds, No Accessory Muscle Use, No Respiratory Distress Cardiovascular: Regular Rate, Rhythm, Normal Peripheral Pulses Gastrointestinal: Normal Bowel Sounds, Soft, Tenderness (Mild tenderness to palpation in the left lower quadrant) Extremity: Normal Capillary Refill, Normal Inspection, Normal Range of Motion, Non Tender, No Pedal Edema Neurologic/Psychiatric: Alert, Oriented x3, No Motor/Sensory Deficits, Normal Mood/Affect Skin: Normal Color, Warm/Dry Procedures/Interventions Suture Size: 4-0 Progress/Results/Core Measures Results/Orders Lab Results Laboratory Tests Test 09/02/20 07:30 Range/Units White Blood Count 12.1 H 4.3-11.0 10^3/uL Red Blood Count 4.62 4.30-5.52 10^6/uL Hemoglobin 12.4 L 13.3-17.7 g/dL Hematocrit 38 L 40-54 % Mean Corpuscular Volume 83 80-99 fL Mean Corpuscular Hemoglobin 27 25-34 pg Mean Corpuscular Hemoglobin Concent 33 32-36 g/dL Red Cell Distribution Width 13.2 10.0-14.5 % Platelet Count 312 130-400 10^3/uL Mean Platelet Volume 9.9 9.0-12.2 fL Immature Granulocyte % (Auto) 0 % Neutrophils (%) (Auto) 60 42-75 % Lymphocytes (%) (Auto) 31 12-44 % Monocytes (%) (Auto) 5 0-12 % Eosinophils (%) (Auto) 4 0-10 % Basophils (%) (Auto) 0 0-10 % Neutrophils # (Auto) 7.2 1.8-7.8 10^3/uL Lymphocytes # (Auto) 3.8 1.0-4.0 10^3/uL Monocytes # (Auto) 0.6 0.0-1.0 10^3/uL Eosinophils # (Auto) 0.4 H 0.0-0.3 10^3/uL Basophils # (Auto) 0.0 0.0-0.1 10^3/uL Immature Granulocyte # (Auto) 0.0 0.0-0.1 10^3/uL Sodium Level 138 135-145 MMOL/L Potassium Level 4.1 3.6-5.0 MMOL/L Chloride Level 101 98-107 MMOL/L Carbon Dioxide Level 24 21-32 MMOL/L Anion Gap 13 5-14 MMOL/L Blood Urea Nitrogen 10 7-18 MG/DL Creatinine 1.06 0.60-1.30 MG/DL Estimat Glomerular Filtration Rate > 60 BUN/Creatinine Ratio 9 Glucose Level 180 H 70-105 MG/DL Calcium Level 9.1 8.5-10.1 MG/DL Corrected Calcium 9.0 8.5-10.1 MG/DL Total Bilirubin 0.4 0.1-1.0 MG/DL Aspartate Amino Transf (AST/SGOT) 16 5-34 U/L Alanine Aminotransferase (ALT/SGPT) 17 0-55 U/L Alkaline Phosphatase 80 40-136 U/L Total Creatine Kinase 65 30-200 U/L Troponin I < 0.028 <0.028 NG/ML Total Protein 7.5 6.4-8.2 GM/DL Albumin 4.1 3.2-4.5 GM/DL My Orders Orders - AURA VASQUEZ MD Ed Iv/Invasive Line Start (09/02/20 07:53) Cbc With Automated Diff (09/02/20 07:53) Comprehensive Metabolic Panel (09/02/20 07:53) Creatine Kinase (09/02/20 07:53) Troponin I (09/02/20 07:53) Ekg Tracing (09/02/20 07:53) Chest 1 View, Ap/Pa Only (09/02/20 07:53) Aspirin Chewable Tablet (Baby Aspirin Ch (09/02/20 09:00) Nitroglycerin 0.4 Mg Btl 25's (Nitrostat (09/02/20 08:15) Morphine Injection (Morphine Injection (09/02/20 08:35) Covid 19 Inhouse Test (09/02/20 08:49) Medications Given in ED Current Medications Medications Dose Ordered Sig/Colette Route Start Time Stop Time Status Last Admin Dose Admin Nitroglycerin 1 TAB Q 5 MIN X 3 NEEDED PRN SL 09/02/20 08:15 09/02/20 08:20 1.2 MG Vital Signs/I&O 09/02/20 09/02/20 07:42 07:42 Temp 35.7 Pulse 97 Resp 16 B/P (MAP) 153/89 (110) Pulse Ox 98 O2 Delivery Room Air Room Air Blood Pressure Mean: 110 Initial ECG Impression Date: Sep 02, 2020 Initial ECG Impression Time: 07:40 Initial ECG Rate: 97 Initial ECG Rhythm: Normal Sinus Initial ECG Intervals: Normal Initial ECG Impression: Nonspecific Changes Initial ECG Comparisson: Changed (improved ST depression from previous) Departure Communication (Admissions) Time/Spoke to Admitting Phy: 08:[address] Nash, accepts patient for admission Time/Spoke to Consulting Phy: 08:[address] Fitzgerald, will consult on the patient Impression Primary Impression: Chest pain Qualified Codes: R07.9 - Chest pain, unspecified Additional Impression: Enteritis Disposition: ADMITTED INPATIENT Condition: Stable Admissions Decision to Admit Reason: Admit from ER (General) Decision to Admit/Date: Sep 02, 2020 Time/Decision to Admit Time: 09:22 Departure-Patient Inst. Referrals: JUNIOR XIE MD (PCP/Family) Primary Care Physician AURA VASQUEZ MD Sep 02, 2020 08:07
[2020-09-02 08:08] LABS: BASOPHILS % (AUTO) 0 % (0-10); EOSINOPHILS # (AUTO) 0.4 10^3/uL (0.0-0.3); EOSINOPHILS % (AUTO) 4 % (0-10); HEMATOCRIT 38 % (40-54); HEMOGLOBIN 12.4 g/dL (13.3-17.7); LYMPHOCYTES # (AUTO) 3.8 10^3/uL (1.0-4.0); LYMPHOCYTES % (AUTO) 31 % (12-44); MEAN CORPUSCULAR HEMOGLOBIN 27 pg (25-34); MEAN CORPUSCULAR HGB CONC 33 g/dL (32-36); MEAN CORPUSCULAR VOLUME 83 fL (80-99); MEAN PLATELET VOLUME 9.9 fL (9.0-12.2); MONOCYTES # (AUTO) 0.6 10^3/uL (0.0-1.0); MONOCYTES % (AUTO) 5 % (0-12); NEUTROPHILS # (AUTO) 7.2 10^3/uL (1.8-7.8); NEUTROPHILS % (AUTO) 60 % (42-75); PLATELET COUNT 312 10^3/uL (130-400); WHITE BLOOD COUNT 12.1 10^3/uL (4.3-11.0)
--- NOTE | 2020-09-02 08:09 | Diagnostic Imaging Report ---
INDICATION: Chest pain Portable chest at 8:09 AM Heart size and pulmonary vascularity are normal. Lungs are clear. There are no effusions or pneumothoraces. There are postoperative changes from median sternotomy. IMPRESSION: No acute abnormalities in the chest. Dictated by: Dictated on workstation # [id number]
[2020-09-02 08:11] LABS: ALBUMIN 4.1 GM/DL (3.2-4.5); CHLORIDE 101 MMOL/L (98-107); POTASSIUM 4.1 MMOL/L (3.6-5.0); SODIUM 138 MMOL/L (135-145)
[2020-09-02 08:12] LABS: CALCIUM 9.1 MG/DL (8.5-10.1)
[2020-09-02 08:13] LABS: GLUCOSE 180 MG/DL (70-105)
[2020-09-02 08:14] LABS: TOTAL PROTEIN 7.5 GM/DL (6.4-8.2)
[2020-09-02 08:15] LABS: CARBON DIOXIDE 24 MMOL/L (21-32)
[2020-09-02] MEDS ORDERED: NITROGLYCERIN 0.4 MG SL TABS BTL 25'S SL PRN ×2 (08:15→11:30)
[2020-09-02 08:16] LABS: BILIRUBIN,TOTAL 0.4 MG/DL (0.1-1.0)
[2020-09-02 08:17] LABS: ALKALINE PHOSPHATASE 80 U/L (40-136); CREATININE SERUM 1.06 MG/DL (0.60-1.30); GFR ESTIMATED > 60
[2020-09-02 08:18] LABS: BUN/CREATININE RATIO 9
[2020-09-02 08:20] LABS: ALANINE AMINOTRANSFERASE 17 U/L (0-55); CREATINE KINASE 65 U/L (30-200)
--- NOTE | 2020-09-02 08:20 | NUR ---
0820 Nitro tab x 1 administered HR-98, BP-151/89, SPo2-98% 0825 Nitro tab x 1 administered HR-99, BP-148/87, Sp02-87% 0830-Nitro tab x 1 administered HR-100, BP-146/88, Spo2-98% Final BP-141/81, HR-101, SPo2-98% Patient states no improvement in pain rating at 6/10.
[2020-09-02] MEDS ORDERED: morphine INJ 10 MG/ML 1ML (SYR OR VIAL) IVP STA (08:35)
[2020-09-02] MEDS ORDERED: ASPIRIN 81 MG CHEW (CHILDREN'S ASA) PO SCH (09:00)
[2020-09-02] MEDS ORDERED: PANTOPRAZOLE 40 MG (PROTONIX) TAB PO ONE (11:00)
[2020-09-02] MEDS ORDERED: CLOPIDOGREL 75 MG (PLAVIX) TABLET PO ONE (11:00)
[2020-09-02] MEDS ORDERED: RANOLAZINE ER 500 MG TAB (RANEXA) PO ONE ×2 (11:26→23:31)
[2020-09-02] MEDS ORDERED: CATHETER FLUSH 10 ML SYR IV PRN (11:30)
[2020-09-02] MEDS: morphine INJ 4 MG/ML 1 ML (VIAL/SYRINGE) IV PRN ×4 (11:40→23:42)
[2020-09-02 11:43] LABS: INR 1.5 (0.8-1.4); PROTHROMBIN TIME PATIENT 18.3 SEC (12.2-14.7)
--- NOTE | 2020-09-02 12:52 | History & Physical-Hospitalist ---
History of Present Illness HPI/Chief Complaint CC: Chest pain HPI: This is a 50yoWM clinic patient of [facility] who presented to the ER with CP. Patient has had 7 prior stents. Currently his pain is improved. Eating and drinking well. All home meds restarted. Cardiology consult appreciated. Source: patient Exam Limitations: no limitations Date Seen 09/02/20 Time Seen by a Provider: 18:15 Attending Physician Norma Nash Bethany N MD Referring Physician Date of Admission Sep 02, 2020 at 09:24 Home Medications & Allergies Home Medications Reviewed patient Home Medication Reconciliation performed by pharmacy medication reconciliations orthotic and prosthetic technician and/or nursing. Patients Allergies have been reviewed. Allergies Allergies Coded Allergies prednisone (Verified Allergy, Intermediate, RASH, 04/23/15) hydrocodone (Verified Allergy, Unknown, 04/23/15) venom-honey bee (Verified Allergy, Unknown, 04/23/15) Past Rmwybxc-Pnoyfq-Vokijx Hx Past Med/Social Hx: Reviewed Nursing Past Med/Soc Hx, Reviewed and Corrections made Patient Social History Marrital Status: single Alcohol Use: Occasionally Uses Alcohol Beverage of Choice: Beer Recreational Drug Use: No Drug of Choice: MARIJUANA Smoking Status: Former Smoker Former Smoker, Quit: Feb 07, 2000 Type Used: Cigarettes 2nd Hand Smoke Exposure: No Recent Foreign Travel: No Contact w/other who traveled: No Recent Hopitalizations: No Recent Infectious Disease Expo: No Immunizations Up To Date Tetanus Booster (TDap): Unknown Pediatric: No Date of Pneumonia Vaccine: December 03, 2016 Date of Influenza Vaccine: May 11, 2020 Seasonal Allergies Seasonal Allergies: Yes Past Medical History Surgeries: Angioplasty, CABG, Coronary Stent Respiratory: Chronic Bronchitis Currently Using CPAP: Yes (doesnt use it ) Currently Using BIPAP: No Cardiac: Atrial Fibrillation, Congenital Heart Disease, Heart Attack, High Cholesterol, Hypertension Neurological: Stroke, TIA Reproductive: No Sexually Transmitted Disease: No HIV/AIDS: No Gastrointestinal: Gastroesophageal Reflux Musculoskeletal: Chronic Back Pain, Spasms Endocrine: Diabetes, Non-Insulin dep HEENT: Eye Injury, Double Vision Loss of Vision: Right Hearing Impairment: Denies Psychosocial: Sleep Difficulties, Anxiety, Suicide Attempts, Depression History of Blood Disorders: No Adverse Reaction to Blood Reddy: No Family History Brain cancer 19 FATHER Congestive heart failure 19 MOTHER Coronary artery disease 19 FATHER Diabetes mellitus 19 MOTHER Heart attack 19 FATHER 19 MOTHER Hypertension 19 FATHER 19 MOTHER Lung cancer 19 FATHER Heart Disease, Cancer, Diabetes Review of Systems Constitutional: see HPI Cardiovascular: chest pain Physical Exam Physical Exam Vital Signs Vital Signs - First Documented 09/02/20 13:59 FiO2 21 Capillary Refill : Less Than 3 Seconds Height, Weight, BMI Height: 6'1.00" Weight: 277lbs. 0.0oz. 125.026100eo; 38.27 BMI Method:Stated General Appearance: No Apparent Distress, Chronically ill, Obese Eyes: Right Eye Normal Inspection, Right Eye PERRL HEENT: PERRL/EOMI, TMs Normal, Normal ENT Inspection, Pharynx Normal, Moist Mucous Membranes Neck: Full Range of Motion, Normal Inspection, Non Tender Respiratory: Chest Non Tender, Lungs Clear, Normal Breath Sounds, No Accessory Muscle Use, No Respiratory Distress Cardiovascular: Regular Rate, Rhythm, No Edema, No Gallop, No JVD, No Murmur, Normal Peripheral Pulses Gastrointestinal: Normal Bowel Sounds, No Organomegaly, No Pulsatile Mass, Non Tender, Soft Back: Normal Inspection, No CVA Tenderness, No Vertebral Tenderness Extremity: Normal Capillary Refill, Normal Inspection, Normal Range of Motion, Non Tender, No Calf Tenderness, No Pedal Edema Neurologic/Psychiatric: Alert, Oriented x3, No Motor/Sensory Deficits, Normal Mood/Affect Skin: Normal Color, Warm/Dry Lymphatic: No Adenopathy Results Results/Procedures Labs Laboratory Tests 09/02/20 07:30 Patient resulted labs reviewed. Assessment/Plan Admission Diagnosis Assessment: Unstable angina? CAD with 7 stents previous AF HTN HLP Mental illness Plan: Home meds Cardiology Admission Status: Observation Diagnosis/Problems Diagnosis/Problems (1) Chest pain Status: Acute Qualifiers: Chest pain type: unspecified Qualified Codes: R07.9 - Chest pain, unspecified (2) Coronary artery disease Status: Acute Clinical Quality Measures AMI/AHF: ASA po Prior to arrival: NORMA Miller DO Sep 02, 2020 12:52
--- NOTE | 2020-09-02 13:01 | Consultation-Cardiology ---
HPI-Cardiology Cardiology Consultation Date of Consultation 09/02/20 Date of Admission Time Seen by Provider: 12:56 Indication: chest pain HPI 50 years old gentleman with history of coronary artery disease, extensive history, balloon angioplasty done in July 2020. Patient started to have nausea and vomiting and abdominal pain with diarrhea. Reported starting some chest pain. Described as dull achiness on the left side of his chest. Still having the nausea and vomiting came in to the emergency room for evaluation for his chest pain. Has been having the pain on and off for the past 48 hours, currently chest pain-free. Home Medications & Allergies Allergies: Coded Allergies: prednisone (Verified Allergy, Intermediate, RASH, 04/23/15) hydrocodone (Verified Allergy, Unknown, 04/23/15) venom-honey bee (Verified Allergy, Unknown, 04/23/15) Home Medication List Reviewed: Yes [id number] Hx Patient Social History Marital Status: Recreational Drug Use: No Drug of Choice: MARIJUANA Smoking Status: Former Smoker Former smoker/When Quit: Apr 07, 1999 Type Used: Cigarettes 2nd Hand Smoke Exposure: No Recent Hopitalizations: No Have you traveled recently?: No Alcohol Use?: No Immunizations Up To Date Tetanus Booster (TDap): Unknown Date of Pneumonia Vaccine: December 03, 2016 Date of Influenza Vaccine: May 11, 2020 Past Medical History Laboratory Tests Test 09/02/20 07:30 09/02/20 10:03 09/02/20 11:22 09/02/20 12:08 Range/Units White Blood Count 12.1 H 4.3-11.0 10^3/uL Red Blood Count 4.62 4.30-5.52 10^6/uL Hemoglobin 12.4 L 13.3-17.7 g/dL Hematocrit 38 L 40-54 % Mean Corpuscular Volume 83 80-99 fL Mean Corpuscular Hemoglobin 27 25-34 pg Mean Corpuscular Hemoglobin Concent 33 32-36 g/dL Red Cell Distribution Width 13.2 10.0-14.5 % Platelet Count 312 130-400 10^3/uL Mean Platelet Volume 9.9 9.0-12.2 fL Immature Granulocyte % (Auto) 0 % Neutrophils (%) (Auto) 60 42-75 % Lymphocytes (%) (Auto) 31 12-44 % Monocytes (%) (Auto) 5 0-12 % Eosinophils (%) (Auto) 4 0-10 % Basophils (%) (Auto) 0 0-10 % Neutrophils # (Auto) 7.2 1.8-7.8 10^3/uL Lymphocytes # (Auto) 3.8 1.0-4.0 10^3/uL Monocytes # (Auto) 0.6 0.0-1.0 10^3/uL Eosinophils # (Auto) 0.4 H 0.0-0.3 10^3/uL Basophils # (Auto) 0.0 0.0-0.1 10^3/uL Immature Granulocyte # (Auto) 0.0 0.0-0.1 10^3/uL Sodium Level 138 135-145 MMOL/L Potassium Level 4.1 3.6-5.0 MMOL/L Chloride Level 101 98-107 MMOL/L Carbon Dioxide Level 24 21-32 MMOL/L Anion Gap 13 5-14 MMOL/L Blood Urea Nitrogen 10 7-18 MG/DL Creatinine 1.06 0.60-1.30 MG/DL Estimat Glomerular Filtration Rate > 60 BUN/Creatinine Ratio 9 Glucose Level 180 H 70-105 MG/DL Calcium Level 9.1 8.5-10.1 MG/DL Corrected Calcium 9.0 8.5-10.1 MG/DL Total Bilirubin 0.4 0.1-1.0 MG/DL Aspartate Amino Transf (AST/SGOT) 16 5-34 U/L Alanine Aminotransferase (ALT/SGPT) 17 0-55 U/L Alkaline Phosphatase 80 40-136 U/L Total Creatine Kinase 65 30-200 U/L Troponin I < 0.028 <0.028 NG/ML Total Protein 7.5 6.4-8.2 GM/DL Albumin 4.1 3.2-4.5 GM/DL Coronavirus 2019 ([facility]) Negative Negative Prothrombin Time 18.3 H 12.2-14.7 SEC INR Comment 1.5 H 0.8-1.4 Activated Partial Thromboplast Time 34 24-35 SEC Glucometer 173 H 70-110 MG/DL Family Medical History Significant Family History: Heart Disease, Cancer, Diabetes Family History: 19 FATHER Brain cancer Heart attack Hypertension Lung cancer Coronary artery disease 19 MOTHER Hypertension Heart attack Diabetes mellitus Congestive heart failure Review of Systems-General Review of Systems Constitutional: see HPI EENTM: see HPI, no symptoms reported Respiratory: no symptoms reported, see HPI Cardiovascular: see HPI, chest pain; No edema, No Hx of Intervention, No palpitations, No syncope, No vascular heart diseas, No other Gastrointestinal: see HPI, diarrhea, heartburn, nausea, vomiting Genitourinary: no symptoms reported, see HPI Musculoskeletal: no symptoms reported Skin: no symptoms reported Psychiatric/Neurological: No Symptoms Reported, See HPI All Other Systems Reviewed Negative Unless Noted: Yes Reviewed Test Results Reviewed Test Results Lab Laboratory Tests Test 09/02/20 07:30 09/02/20 10:03 09/02/20 11:22 09/02/20 12:08 Range/Units White Blood Count 12.1 H 4.3-11.0 10^3/uL Red Blood Count 4.62 4.30-5.52 10^6/uL Hemoglobin 12.4 L 13.3-17.7 g/dL Hematocrit 38 L 40-54 % Mean Corpuscular Volume 83 80-99 fL Mean Corpuscular Hemoglobin 27 25-34 pg Mean Corpuscular Hemoglobin Concent 33 32-36 g/dL Red Cell Distribution Width 13.2 10.0-14.5 % Platelet Count 312 130-400 10^3/uL Mean Platelet Volume 9.9 9.0-12.2 fL Immature Granulocyte % (Auto) 0 % Neutrophils (%) (Auto) 60 42-75 % Lymphocytes (%) (Auto) 31 12-44 % Monocytes (%) (Auto) 5 0-12 % Eosinophils (%) (Auto) 4 0-10 % Basophils (%) (Auto) 0 0-10 % Neutrophils # (Auto) 7.2 1.8-7.8 10^3/uL Lymphocytes # (Auto) 3.8 1.0-4.0 10^3/uL Monocytes # (Auto) 0.6 0.0-1.0 10^3/uL Eosinophils # (Auto) 0.4 H 0.0-0.3 10^3/uL Basophils # (Auto) 0.0 0.0-0.1 10^3/uL Immature Granulocyte # (Auto) 0.0 0.0-0.1 10^3/uL Sodium Level 138 135-145 MMOL/L Potassium Level 4.1 3.6-5.0 MMOL/L Chloride Level 101 98-107 MMOL/L Carbon Dioxide Level 24 21-32 MMOL/L Anion Gap 13 5-14 MMOL/L Blood Urea Nitrogen 10 7-18 MG/DL Creatinine 1.06 0.60-1.30 MG/DL Estimat Glomerular Filtration Rate > 60 BUN/Creatinine Ratio 9 Glucose Level 180 H 70-105 MG/DL Calcium Level 9.1 8.5-10.1 MG/DL Corrected Calcium 9.0 8.5-10.1 MG/DL Total Bilirubin 0.4 0.1-1.0 MG/DL Aspartate Amino Transf (AST/SGOT) 16 5-34 U/L Alanine Aminotransferase (ALT/SGPT) 17 0-55 U/L Alkaline Phosphatase 80 40-136 U/L Total Creatine Kinase 65 30-200 U/L Troponin I < 0.028 <0.028 NG/ML Total Protein 7.5 6.4-8.2 GM/DL Albumin 4.1 3.2-4.5 GM/DL Coronavirus 2019 ([facility]) Negative Negative Prothrombin Time 18.3 H 12.2-14.7 SEC INR Comment 1.5 H 0.8-1.4 Activated Partial Thromboplast Time 34 24-35 SEC Glucometer 173 H 70-110 MG/DL Physical Exam Physical Exam Vital Signs Vital Signs - First Documented Capillary Refill : Less Than 3 Seconds Height, Weight, BMI Height: 6'1.00" Weight: 277lbs. 0.0oz. 125.386006bi; 38.27 BMI Method:Stated General Appearance: No Apparent Distress, WD/WN Eyes: Bilateral Eye Normal Inspection, Bilateral Eye PERRL, Bilateral Eye EOMI HEENT: PERRL/EOMI Neck: Full Range of Motion, Normal Inspection, Non Tender, Supple, Carotid Bruit Respiratory: Lungs Clear, Normal Breath Sounds, No Accessory Muscle Use, No Re spiratory Distress Cardiovascular: Regular Rate, Rhythm, Normal Peripheral Pulses Gastrointestinal: Normal Bowel Sounds, Soft, Tenderness (Mild tenderness to palpation in the left lower quadrant) Back: Normal Inspection, No CVA Tenderness, No Vertebral Tenderness Extremity: Normal Capillary Refill, Normal Inspection, Normal Range of Motion, Non Tender, No Pedal Edema Neurologic/Psychiatric: Alert, Oriented x3, No Motor/Sensory Deficits, Normal Mood/Affect Skin: Normal Color, Warm/Dry Lymphatic: No Adenopathy A/P-Cardiology Admission Diagnosis Chest pain Nausea vomiting Coronary artery disease Hypertension Assessment/Plan Chest pain resembling angina, patient had extensive history of coronary artery disease, I recommend conservative management and monitoring his troponin level Nausea vomiting, diarrhea, gastroenteritis, continue with IV hydration and monitor closely Extensive history of coronary artery disease multiple interventions and bypass in the past. Last cardiac catheterization was carried out in July 2020 patient has severe in-stent restenosis in the right PDA was successful balloon angioplasty with excellent results, had patent REYES to LAD, patent stent in the proximal LAD with borderline lesion in the stent, moderate disease in the circumflex artery nonobstructive disease with known occluded 2 vein grafts probably to the obtuse marginal and diagonal branches. We'll continue with medical therapy. History of congestive heart failure, chronic compensated left ventricular diastolic dysfunction, ejection fraction 50-55 percent. Continue to monitor hypertensive heart disease History of aortic valve stenosis, continue to monitor Hypertension, restart home medication monitor blood pressure Hyperlipidemia, monitor lipids Diabetes mellitus, followed and managed by primary care physician Carotid stenosis mild nonobstructive disease. Continue to monitor Clinical Quality Measures AMI/AHF: ASA po Prior to arrival: JAMEEL Anthony MD Sep 02, 2020 13:01
[2020-09-02] MEDS ORDERED: METF-399 PO (13:34)
[2020-09-02] MEDS ORDERED: ACET-2267 PO (13:34)
[2020-09-02] MEDS ORDERED: PROM50TA3 PO (13:34)
[2020-09-02] MEDS ORDERED: ATOR80TA76 PO (13:34)
[2020-09-02] MEDS ORDERED: METO50TA7 PO (13:34)
[2020-09-02] MEDS ORDERED: MONT10TA97 PO (13:34)
[2020-09-02] MEDS: CATHETER FLUSH 10 ML SYR IV SCH ×2 (14:09→23:43)
--- NOTE | 2020-09-02 14:11 | NUR ---
SPOKE WITH THE PT (HE HAS MOST HOME MEDS WITH HIM), WENT THRU THE EXT MED HISTORY AND CALLED [facility] TO COMPLETE THE MED REC CLOPIDOGREL 75MG WAS LAST FILLED 04-01-2020 #90/90DS- I DOCUMENTED THE PAST DUE REFILL ON THE MED REC PT HAS A BOTTLE OF BACLOFEN 20MG WITH HIM BUT THE LAST FILL DATE WAS 07-27-2019 (I CALL [facility] TO VERIFY THIS) AND DUE TO THE RX BEING I DID NOT INCLUDE IT ON THE MED REC OTC MEDS: TYLENOL
--- NOTE | 2020-09-02 14:12 | NUR ---
Received dietary consult for MST score. Given current PO intake, pt is not at risk for malnutrition at this time. May Lyons, MS RD LD
[2020-09-02] MEDS ORDERED: RT-ALBUTEROL SULF 2.5 MG/3 ML PRE-MIX VIAL INH PRN ×2 (17:00→21:30)
[2020-09-02] MEDS ORDERED: RANOLAZINE ER 500 MG TAB (RANEXA) PO SCH (21:00)
[2020-09-02] MEDS ORDERED: RT-ALBUTEROL SULF 2.5 MG/3 ML PRE-MIX VIAL INH SCH (21:00)
[2020-09-02] MEDS ORDERED: GABAPENTIN 300 MG (NEURONTIN) CAP PO PRN (21:30)
[2020-09-02] MEDS ORDERED: MECLIZINE 25 MG (ANTIVERT) TAB PO PRN (21:30)
[2020-09-02] MEDS ORDERED: ACETAMINOPHEN 500 MG TAB (TYLENOL) PO PRN (21:30)
[2020-09-02] MEDS ORDERED: traZODone 50 MG (DESYREL) TAB ONE (23:30)
[2020-09-02] MEDS ORDERED: ISOSORBIDE MONONITRATE 60 MG (IMDUR) TAB PO ONE (23:31)
[2020-09-02] MEDS ORDERED: busPIRone 10 MG (BUSPAR) TAB ONE (23:36)
--- NOTE | 2020-09-02 23:40 | NUR ---
pt requested night time meds, this RN spoke with Dr. Nash at 2122, she restarted all home meds, meds were verified by pharmacy but entered into the computer to start in the AM, this RN pulled Imdur, Desyrel, gabapentin, and buspar which pt and med rec verified he takes at bedtime. Meds were given at 2332.
[2020-09-03] VITALS (11 sets, daily range): BP systolic 100–141; BP diastolic 47–88
[2020-09-03 04:39] LABS: TRIGLYCERIDES 297 MG/DL (<150); VLDL CHOLESTEROL 59 MG/DL (5-40)
[2020-09-03 04:44] LABS: CHOLESTEROL 249 MG/DL (< 200)
[2020-09-03 04:45] LABS: HDL CHOLESTEROL 27 MG/DL (40-60)
[2020-09-03] MEDS: CATHETER FLUSH 10 ML SYR IV SCH ×3 (06:00→22:05)
[2020-09-03 07:28] LABS: HEMOGLOBIN 12.1 g/dL (13.3-17.7); MEAN PLATELET VOLUME 9.8 fL (9.0-12.2); WHITE BLOOD COUNT 9.7 10^3/uL (4.3-11.0)
[2020-09-03 07:36] LABS: ALBUMIN 4.1 GM/DL (3.2-4.5)
[2020-09-03 07:37] LABS: CHLORIDE 100 MMOL/L (98-107); POTASSIUM 4.2 MMOL/L (3.6-5.0); SODIUM 136 MMOL/L (135-145)
[2020-09-03 07:39] LABS: GLUCOSE 156 MG/DL (70-105); TOTAL PROTEIN 7.3 GM/DL (6.4-8.2)
[2020-09-03 07:40] LABS: CARBON DIOXIDE 26 MMOL/L (21-32)
[2020-09-03 07:41] LABS: BILIRUBIN,TOTAL 0.6 MG/DL (0.1-1.0)
[2020-09-03 07:42] LABS: ALKALINE PHOSPHATASE 77 U/L (40-136)
[2020-09-03 07:43] LABS: GFR ESTIMATED > 60
[2020-09-03 07:44] LABS: BUN/CREATININE RATIO 11
[2020-09-03 07:45] LABS: ALANINE AMINOTRANSFERASE 20 U/L (0-55)
[2020-09-03] MEDS: RANOLAZINE ER 500 MG TAB (RANEXA) PO SCH ×2 (08:25→20:56)
[2020-09-03] MEDS: ASPIRIN E.C. 81 MG (ECOTRIN) TAB PO SCH (08:25)
[2020-09-03] MEDS: busPIRone 10 MG (BUSPAR) TAB PO SCH ×3 (08:25→20:57)
[2020-09-03] MEDS ORDERED: PANTOPRAZOLE 40 MG (PROTONIX) TAB PO SCH (09:00)
[2020-09-03] MEDS ORDERED: CLOPIDOGREL 75 MG (PLAVIX) TABLET PO SCH ×2 (09:00→18:00)
[2020-09-03] MEDS ORDERED: ICOSAPENT ETHYL 1 GM PO SCH (09:00)
--- NOTE | 2020-09-03 09:12 | Cardiology Progress Note ---
Subjective Date Seen by Provider: Sep 03, 2020 Time Seen by Provider: 09:10 Subjective/Events-last exam Patient is feeling better, chest pain has resolved, nausea/vomiting and diarrhea has resolved Review of Systems General: No Chills, No Night Sweats, No Fatigue, No Malaise, No Appetite, No Other HEENT: No Head Aches, No Visual Changes, No Eye Pain, No Ear Pain, No Dysphasia, No Sinus Congestion, No Post Nasal Drip, No Sore Throat, No Other Pulmonary: No Dyspnea, No Cough, No Pleuritic Chest Pain, No Other Cardiovascular: No: Chest Pain, Palpitations, Orthopnea, Paroxysmal Noc. Dyspnea, Edema, Lt Headedness, Other Objective-Cardiology Exam Last Set of Vital Signs Vital Signs 09/02/20 09/03/20 13:59 07:15 Temp 35.4 Pulse 97 Resp 20 B/P (MAP) 100/47 (64) Pulse Ox 96 O2 Delivery Room Air FiO2 21 Capillary Refill : Less Than 3 Seconds I&O Intake and Output 09/03/20 00:00 Intake Total 1600 ml Balance 1600 ml Intake Oral 1600 ml # Voids 5 Daily Weight Change No General: Alert, Oriented X3, Cooperative HEENT: Atraumatic, PERRLA Neck: Supple, No JVD, No Thyromegaly Lungs: Clear to Auscultation, Normal Air Movement Heart: Regular Rate, Normal S1, Normal S2, No Murmurs Abdomen: Normal Bowel Sounds, Soft, No Tenderness, No Hepatosplenomegaly, No Masses Extremities: No Clubbing, No Cyanosis, No Edema, Normal Pulses, No Tenderness/Swelling Skin: No Rashes, No Breakdown, No Significant Lesion Neuro: Normal Gait, Normal Speech, Strength at 5/5 X4 Ext, Normal Tone, Sensation Intact Psych/Mental Status: Mental Status NL, Mood NL Results Lab Laboratory Tests 09/03/20 07:14 A/P-Cardiology Admission Diagnosis Chest pain Nausea vomiting Coronary artery disease Hypertension Assessment/Plan Chest pain, unstable angina, patient had extensive history of coronary artery disease, continue with conservative management Nausea vomiting, diarrhea, gastroenteritis, reporting improvement. Starting back on diet today Extensive history of coronary artery disease multiple interventions and bypass in the past. Last cardiac catheterization was carried out in July 2020 patient has severe in-stent restenosis in the right PDA was successful balloon angioplasty with excellent results, had patent REYES to LAD, patent stent in the proximal LAD with borderline lesion in the stent, moderate disease in the circumflex artery nonobstructive disease with known occluded 2 vein grafts probably to the obtuse marginal and diagonal branches. Continue with aspirin and Plavix History of congestive heart failure, chronic compensated left ventricular diastolic dysfunction, ejection fraction 50-55 percent. Continue to monitor hypertensive heart disease History of aortic valve stenosis, continue to monitor Hypertension, restart home medication monitor blood pressure Hyperlipidemia, poor control, on Lipitor 80 mg daily, add Zetia 10 mg daily Diabetes mellitus, followed and managed by primary care physician Carotid stenosis mild nonobstructive disease. Continue to monitor Okay for discharge from cardiology standpoint Clinical Quality Measures AMI/AHF: ASA po Prior to arrival: JAMEEL Anthony MD Sep 03, 2020 09:12
[2020-09-03] MEDS: NITROGLYCERIN 0.4 MG SL TABS BTL 25'S SL PRN ×3 (10:02→10:24)
[2020-09-03] MEDS: morphine INJ 4 MG/ML 1 ML (VIAL/SYRINGE) IV PRN ×5 (10:13→22:45)
[2020-09-03] MEDS: ONDANSETRON 4 MG/2 ML (SDV) Z0FRAN IV PRN ×2 (10:13→20:57)
[2020-09-03] MEDS: ADVAIR HFA 115/21 MCG INHALER 8 GM IH SCH ×2 (11:43→15:04)
--- NOTE | 2020-09-03 12:59 | Progress Note - Hospitalist ---
Subjective HPI/CC On Admission Date Seen by Provider: Sep 03, 2020 Time Seen by Provider: 11:00 CC: Chest pain HPI: This is a 50yoWM clinic patient of [facility] who presented to the ER with CP. Patient has had 7 prior stents. Currently his pain is improved. Eating and drinking well. All home meds restarted. Cardiology consult appreciated. Subjective/Events-last exam Chest pain remains Moving to 4th floor on [place] Appreciate Dr Fitzgerald plan Review of Systems Cardiovascular: Chest Pain Objective Exam Vital Signs Vital Signs Date Time Temp Pulse Resp B/P (MAP) Pulse Ox O2 Delivery O2 Flow Rate FiO2 09/04/20 04:20 35.8 95 16 127/82 (97) 96 Room Air 09/02/20 13:59 21 Capillary Refill : Less Than 3 Seconds General Appearance: No Apparent Distress, WD/WN, Chronically ill, Obese Respiratory: Chest Non Tender, Lungs Clear, Normal Breath Sounds, No Accessory Muscle Use, No Respiratory Distress Cardiovascular: Regular Rate, Rhythm, No Edema, No Gallop, No JVD, No Murmur, Normal Peripheral Pulses Neurologic/Psychiatric: Alert, Oriented x3, No Motor/Sensory Deficits, Normal Mood/Affect Results/Procedures Lab Laboratory Tests 09/03/20 07:14 Patient resulted labs reviewed. Assessment/Plan Assessment and Plan Assess & Plan/Chief Complaint Assessment: Unstable angina? CAD with 7 stents previous AF HTN HLP Mental illness Plan: Home meds Cardiology 09/03/20: Monitor chest pain Diagnosis/Problems Diagnosis/Problems (1) Chest pain Status: Acute Qualifiers: Chest pain type: unspecified Qualified Codes: R07.9 - Chest pain, unspecified (2) Coronary artery disease Status: Acute Clinical Quality Measures AMI/AHF: ASA po Prior to arrival: ANGIE Miller DO Sep 03, 2020 12:59
[2020-09-03] MEDS: lisINopril 5 MG (PRINIVIL) TABLET PO SCH (18:15)
[2020-09-03] MEDS: VENlafaxine XR 75 MG (EFFEXOR XR) CAP PO SCH (18:15)
[2020-09-03] MEDS: PANTOPRAZOLE 40 MG (PROTONIX) TAB PO SCH (18:15)
[2020-09-03] MEDS: ISOSORBIDE MONONITRATE 60 MG (IMDUR) TAB PO SCH (18:15)
[2020-09-03] MEDS: MONTELUKAST 10 MG (SINGULAIR) TAB PO SCH (18:16)
[2020-09-03] MEDS: meTOproloL SUCCINATE 50 MG (TOPROL XL) TAB PO SCH (18:16)
[2020-09-03] MEDS: eZETimibe 10 MG (ZETIA) TABLET PO SCH (20:57)
[2020-09-03] MEDS: traZODone 100 MG (DESYREL) TAB PO SCH (20:57)
[2020-09-03] MEDS: PROMETHAZINE 25 MG (PHENERGAN) TAB PO PRN (22:45)
[2020-09-04] VITALS (12 sets, daily range): BP systolic 111–142; BP diastolic 65–95
[2020-09-04] MEDS: morphine INJ 4 MG/ML 1 ML (VIAL/SYRINGE) IV PRN ×2 (01:52→14:15)
[2020-09-04] MEDS: CATHETER FLUSH 10 ML SYR IV SCH ×3 (06:03→22:26)
[2020-09-04] MEDS: ONDANSETRON 4 MG/2 ML (SDV) Z0FRAN IV PRN (07:42)
[2020-09-04] MEDS: ASPIRIN E.C. 81 MG (ECOTRIN) TAB PO SCH (08:51)
[2020-09-04] MEDS: RANOLAZINE ER 500 MG TAB (RANEXA) PO SCH ×2 (08:52→21:01)
[2020-09-04] MEDS: busPIRone 10 MG (BUSPAR) TAB PO SCH ×3 (08:52→21:01)
[2020-09-04] MEDS: PROMETHAZINE 25 MG (PHENERGAN) TAB PO PRN (08:58)
[2020-09-04] MEDS: ADVAIR HFA 115/21 MCG INHALER 8 GM IH SCH (09:39)
[2020-09-04] MEDS ORDERED: LIDOCAINE 1% INJ 20 ML 20 ML VIAL ONE ×2 (11:15→11:49)
[2020-09-04] MEDS ORDERED: fentaNYL INJECTION 100 MCG/2 ML AMP ONE (11:16)
[2020-09-04] MEDS ORDERED: HEParin (CATH LAB) 2,000 ML IV ONE (11:16)
[2020-09-04] MEDS ORDERED: NS IV 1000 ML 1,000 ML ONE (11:16)
[2020-09-04] MEDS ORDERED: MIDAZOLAM 5 MG/5 ML (VERSED) VIAL ONE (11:16)
--- NOTE | 2020-09-04 11:19 | Cardiology Progress Note ---
Subjective Date Seen by Provider: Sep 04, 2020 Time Seen by Provider: 11:18 Subjective/Events-last exam Patient continued to have recurrent chest pain, having active chest pain this morning Review of Systems General: No Chills, No Night Sweats, No Fatigue, No Malaise, No Appetite, No Other HEENT: No Head Aches, No Visual Changes, No Eye Pain, No Ear Pain, No Dysphasia, No Sinus Congestion, No Post Nasal Drip, No Sore Throat, No Other Pulmonary: No Dyspnea, No Cough, No Pleuritic Chest Pain, No Other Cardiovascular: Chest Pain; No: Palpitations, Orthopnea, Paroxysmal Noc. Dyspnea, Edema, Lt Headedness, Other Objective-Cardiology Exam Last Set of Vital Signs Vital Signs 09/02/20 09/04/20 13:59 08:00 Temp 35.6 Pulse 92 Resp 20 B/P (MAP) 126/70 (88) Pulse Ox 95 O2 Delivery Room Air FiO2 21 Capillary Refill : Less Than 3 Seconds I&O Intake and Output 09/04/20 00:00 Intake Total 1645 ml Balance 1645 ml Intake Oral 1645 ml # Voids 7 # Emeses 1 General: Alert, Oriented X3, Cooperative HEENT: Atraumatic, PERRLA Neck: Supple, No JVD, No Thyromegaly Lungs: Clear to Auscultation, Normal Air Movement Heart: Regular Rate, Normal S1, Normal S2, No Murmurs Abdomen: Normal Bowel Sounds, Soft, No Tenderness, No Hepatosplenomegaly, No Masses Extremities: No Clubbing, No Cyanosis, No Edema, Normal Pulses, No Tenderness/Swelling Skin: No Rashes, No Breakdown, No Significant Lesion Neuro: Normal Gait, Normal Speech, Strength at 5/5 X4 Ext, Normal Tone, Sensation Intact Psych/Mental Status: Mental Status NL, Mood NL A/P-Cardiology Admission Diagnosis Chest pain Nausea vomiting Coronary artery disease Hypertension Assessment/Plan Chest pain, unstable angina, patient had extensive history of coronary artery disease, having active chest pain, planning to proceed with cardiac catheterization today Nausea vomiting, diarrhea, gastroenteritis, reporting improvement. Continue to monitor Extensive history of coronary artery disease multiple interventions and bypass in the past. Last cardiac catheterization was carried out in July 2020 patient has severe in-stent restenosis in the right PDA was successful balloon angioplasty with excellent results, had patent REYES to LAD, patent stent in the proximal LAD with borderline lesion in the stent, moderate disease in the circumflex artery nonobstructive disease with known occluded 2 vein grafts probably to the obtuse marginal and diagonal branches. Continue with aspirin and Plavix History of congestive heart failure, chronic compensated left ventricular diastolic dysfunction, ejection fraction 50-55 percent. Continue to monitor hypertensive heart disease History of aortic valve stenosis, continue to monitor Hypertension, restart home medication monitor blood pressure Hyperlipidemia, poor control, on Lipitor 80 mg daily, I added Zetia 10 mg daily Diabetes mellitus, followed and managed by primary care physician Carotid stenosis mild nonobstructive disease. Continue to monitor Clinical Quality Measures AMI/AHF: ASA po Prior to arrival: JAMEEL Anthony MD Sep 04, 2020 11:19
--- NOTE | 2020-09-04 11:20 | Cardiac Procedure Note-CS/ASA ---
Pre-Procedure Note Pre-Op Procedure Note H&P Reviewed The H&P was reviewed, patient examined and no changes noted. Date H&P Reviewed: Sep 04, 2020 Time H&P Reviewed: 11:19 Conscious Sedation Pre-Proced Time 11:19 ASA Score 3 For ASA 3 and 4: Consider anesthesia and medical clearance. Also, for patients with a history of failed moderate sedation consider anesthesia. Airway Lungs Heart ASA score ASA 1: a normal healthy patient ASA 2: a patient with a mild systemic disease (mid diabetes, controlled hypertension, obesity x ASA 3: a patient with a severe systemic disease that limits activity (angina, COPD, prior Myocardial infarction) ASA 4: a patient with an incapacitating disease that is a constant threat to life (CHF, renal failure) ASA 5: a moribund patient not expected to survive 24 hrs. (ruptured aneurysm) ASA 6: a declared brain- patient whose organs are being harvested. For emergent operations, add the letter E after the classification Mallampati Classification Grade 3 Sedation Plan Analgesia, Amnesia, Plan communicated to team members, Discussed options with patient/fam, Discussed risks with patient/fam The patient is an appropriate candidate to undergo the planned procedure, sedation, and anesthesia. The patient immediately re-assessed prior to indication. JAMEEL PIMENTEL MD Sep 04, 2020 11:20
--- NOTE | 2020-09-04 11:30 | NUR ---
PATIENT LEFT FLOOR VIA BED FOR HEART CATH.
[2020-09-04] MEDS ORDERED: HEParin 1000 UNIT/ML (10ML VIAL) FOR BOLUS ONE (11:55)
[2020-09-04] MEDS ORDERED: NITRO DRIP 25000 MCG/D5W 250 ML IV ONE (11:55)
[2020-09-04] MEDS ORDERED: NS IV 1000 ML 1,000 ML IV SCH (12:00)
[2020-09-04] MEDS ORDERED: CLOPIDOGREL 300 MG (PLAVIX) TABLET PO ONE (12:23)
--- NOTE | 2020-09-04 12:29 | Cardiac Cath Report ---
Cardiac Cath Report Physician (s)/Comic Book Designer (s) Physician JAMEEL PIMENTEL MD Pre-Procedure Diagnosis Pre-Procedure Diagnosis: chest pain, coronary artery disease Post-Procedure Note Procedure Start Date: Sep 04, 2020 Name of Procedure: Left heart catheterization REYES angiogram PTCA to the right coronary artery/right PDA Findings/Procedure Note PROCEDURE NOTE: 50 years old gentleman with history of coronary artery disease, CABG 3, multiple interventions, admitted with chest pain, persistent, mild elevation in troponin, decision was made to proceed with cardiac catheterization After explaining the procedure to the patient, all pros and cons were explained, all questions were answered. The patient signed the consent and then he was placed on the cardiac catheterization laboratory. Groin was prepped SL fashion local anesthesia was used. Sheath placed in the right femoral artery artery. Leodan right and left catheter were used to access the coronary system. REYES evaluated. Right catheter was advanced to the left ventricular cavity, pressure was measured no left ventricular gram was done. Percutaneous intervention Patient was given 6000 units of heparin, had severe instent restenosis in the right PDA, patient has overlapping stents. FR guide was advanced to the right coronary artery and BMW wire was advanced and parked in the distal right PDA, I advanced noncompliant 2.5 x 20 mm balloon and did multiple inflation up to 18 gurjit with excellent results, the lesion was resistant initially after multiple inflation there was significant improvement, mild coronary spasm proximally induced by catheter, nitroglycerin relieved the spasm At the end of the procedure the sheath was removed. Closure device was deployed FINDINGS: Hemodynamics LV 136/22, end-diastolic pressure of 22 Aorta 118/69 mean of 90 ANATOMY: Left Main is free of obstructive disease Left Anterior Descending is known to be occluded at the midportion, REYES to LAD is patent, the distal LAD has diffuse severe disease, very small artery Left Circumflex has a patent stent proximally, 40-50 percent in the midportion, the obtuse marginal branches are occluded and the vein graft to the obtuse marginal branch is occluded Right Coronory Artery has 2 overlapping stent in the right PDA, complex interve ntion with noncompliant balloon using NC treck 2.5 x 20 mm with multiple inflation up to 18 gurjit with excellent results REYES to LAD is patent, the LAD beyond the anastomosis point is a small artery with diffuse disease, not amendable to intervention Vein Graft , patient has to vein graft that are known to be occluded LV Gram was not done, pressure was measured CONCLUSION: 1. Severe in-stent restenosis at the overlapping stents of the right PDA, successful intervention using noncompliant balloon with high pressure 2.5 x 20 mm with multiple inflation with resolution of the restenosis completely 2. Patent stent in the proximal circumflex artery followed by moderate stenosis, it will be monitored. Known occluded obtuse marginal branches 3. Occluded LAD at the midportion, patent REYES to the LAD with small LAD tapering down after the anastomosis with diffuse disease, not amendable to intervention due to the size of the artery 4. Known to have occluded 2 vein grafts 4. Mildly elevated left ventricular end-diastolic pressure DISCUSSION AND RECOMMENDATION: Continue to maximize medical therapy Anesthesia Type: Conscious Sedation Estimated blood loss (mL): 50 ml Contrast Amount: 61 ml Total Radiation Dose: 1180 mGy Post-Procedure Diagnosis Post-operative diagnosis: Unstable angina Non-ST elevation myocardial infarction Coronary artery disease Hypertension JAMEEL PIMENTEL MD Sep 04, 2020 12:29 pm
[2020-09-04] MEDS ORDERED: PATIENT MAY USE OWN MEDS, ALL PO SCH (12:30)
--- NOTE | 2020-09-04 13:03 | NUR ---
THIS RN CONTACTED DR. PIMENTEL ABOUT PT'S PENDING COVID PCR TEST. DR. PIMENTEL STATED THAT THIS PT DOES NOT NEED TO BE IN AIRBORNE ISOLATION. PT IN STANDARD PRECAUTIONS.
--- NOTE | 2020-09-04 13:22 | NUR ---
REPORT GIVEN TO CARDIAC STEP-DOWN/WOOD CARVER SHARONA. PCT CAYLA TOOK PATIENT BELONGINGS UP TO ROOM 511.
[2020-09-04] MEDS: NS IV 1000 ML 1,000 ML IV SCH ×2 (14:45→22:41)
[2020-09-04] MEDS: ISOSORBIDE MONONITRATE 60 MG (IMDUR) TAB PO SCH (17:30)
[2020-09-04] MEDS: VENlafaxine XR 75 MG (EFFEXOR XR) CAP PO SCH (17:30)
[2020-09-04] MEDS: lisINopril 5 MG (PRINIVIL) TABLET PO SCH (17:31)
[2020-09-04] MEDS: MONTELUKAST 10 MG (SINGULAIR) TAB PO SCH (17:31)
[2020-09-04] MEDS: PANTOPRAZOLE 40 MG (PROTONIX) TAB PO SCH (17:31)
[2020-09-04] MEDS: meTOproloL SUCCINATE 50 MG (TOPROL XL) TAB PO SCH (17:31)
[2020-09-04] MEDS ORDERED: CLOPIDOGREL 75 MG (PLAVIX) TABLET PO SCH (18:00)
[2020-09-04] MEDS: traZODone 100 MG (DESYREL) TAB PO SCH (21:01)
[2020-09-04] MEDS: eZETimibe 10 MG (ZETIA) TABLET PO SCH (21:04)
[2020-09-05] VITALS: BP 132/51
[2020-09-05] MEDS: NITROGLYCERIN 0.4 MG SL TABS BTL 25'S SL PRN ×2 (00:48→01:05)
[2020-09-05] MEDS: morphine INJ 4 MG/ML 1 ML (VIAL/SYRINGE) IV PRN ×2 (01:08→03:18)
[2020-09-05 04:00] VITALS: BP 109/75
[2020-09-05 04:02] LABS: HEMOGLOBIN 11.1 g/dL (13.3-17.7); MEAN PLATELET VOLUME 9.7 fL (9.0-12.2); WHITE BLOOD COUNT 9.6 10^3/uL (4.3-11.0)
[2020-09-05 04:18] LABS: CHLORIDE 100 MMOL/L (98-107); POTASSIUM 4.1 MMOL/L (3.6-5.0); SODIUM 136 MMOL/L (135-145)
[2020-09-05 04:19] LABS: CALCIUM 8.5 MG/DL (8.5-10.1)
[2020-09-05 04:20] LABS: GLUCOSE 116 MG/DL (70-105)
[2020-09-05 04:21] LABS: CARBON DIOXIDE 26 MMOL/L (21-32)
[2020-09-05 04:23] LABS: CREATININE SERUM 1.04 MG/DL (0.60-1.30); GFR ESTIMATED > 60
[2020-09-05 04:24] LABS: BUN/CREATININE RATIO 12
[2020-09-05] MEDS: CATHETER FLUSH 10 ML SYR IV SCH (06:09)
[2020-09-05 08:00] VITALS: BP 120/78
[2020-09-05] MEDS: RANOLAZINE ER 500 MG TAB (RANEXA) PO SCH (08:07)
[2020-09-05] MEDS: busPIRone 10 MG (BUSPAR) TAB PO SCH (08:08)
[2020-09-05] MEDS ORDERED: ASPIRIN E.C. 81 MG (ECOTRIN) TAB PO SCH (09:00)
[2020-09-05] MEDS: NS IV 1000 ML 1,000 ML IV SCH (09:39)
[2020-09-05] MEDS: ADVAIR HFA 115/21 MCG INHALER 8 GM IH SCH (10:06)
--- NOTE | 2020-09-05 10:16 | Cardiology Progress Note ---
Subjective Date Seen by Provider: Sep 05, 2020 Time Seen by Provider: 10:14 Subjective/Events-last exam Patient is laying down in bed, no new complaint. Had an episode of chest pain last night, resolved, no EKG changes Review of Systems General: No Chills, No Night Sweats, No Fatigue, No Malaise, No Appetite, No Other HEENT: No Head Aches, No Visual Changes, No Eye Pain, No Ear Pain, No Dysphasia, No Sinus Congestion, No Post Nasal Drip, No Sore Throat, No Other Pulmonary: No Dyspnea, No Cough, No Pleuritic Chest Pain, No Other Cardiovascular: Chest Pain; No: Palpitations, Orthopnea, Paroxysmal Noc. Dyspnea, Edema, Lt Headedness, Other Objective-Cardiology Exam Last Set of Vital Signs Vital Signs 09/02/20 09/04/20 09/05/20 13:59 16:00 10:06 Pulse Ox 92 O2 Delivery Room Air O2 Flow Rate 1.00 FiO2 21 Capillary Refill : Less Than 3 Seconds I&O Intake and Output 09/05/20 00:00 Intake Total 1600 ml Output Total 0 ml Balance 1600 ml Intake Oral 600 ml IV Total 1000 ml Output Urine Total 0 ml # Voids 5 # Emeses 3 General: Alert, Oriented X3, Cooperative HEENT: Atraumatic, PERRLA Neck: Supple, No JVD, No Thyromegaly Lungs: Clear to Auscultation, Normal Air Movement Heart: Regular Rate, Normal S1, Normal S2, No Murmurs Abdomen: Normal Bowel Sounds, Soft, No Tenderness, No Hepatosplenomegaly, No Masses Extremities: No Clubbing, No Cyanosis, No Edema, Normal Pulses, No Tenderness/Swelling Skin: No Rashes, No Breakdown, No Significant Lesion Neuro: Normal Gait, Normal Speech, Strength at 5/5 X4 Ext, Normal Tone, Sensation Intact Psych/Mental Status: Mental Status NL, Mood NL Results Lab Laboratory Tests 09/05/20 03:45 A/P-Cardiology Admission Diagnosis Chest pain Nausea vomiting Coronary artery disease Hypertension Assessment/Plan Chest pain, unstable angina, recurrent episodes of chest pain, difficult to control due to the extensive coronary artery disease, inoperable obtuse marginal branches that were occluded, small vessel disease in the LAD. Medical therapy is recommended. Nausea vomiting, diarrhea, gastroenteritis, reporting improvement. Continue to monitor Extensive history of coronary artery disease multiple interventions and bypass in the past. Last cardiac catheterization was carried out in July 2020 patient has severe in-stent restenosis in the right PDA was successful balloon angioplasty with excellent results, had patent REYES to LAD, patent stent in the proximal LAD with borderline lesion in the stent, moderate disease in the circumflex artery nonobstructive disease with known occluded 2 vein grafts probably to the obtuse marginal and diagonal branches. Repeat cardiac catheterization was done on September 04, 2019 1. Severe in-stent restenosis at the overlapping stents of the right PDA, successful intervention using noncompliant balloon with high pressure 2.5 x 20 mm with multiple inflation with resolution of the restenosis completely 2. Patent stent in the proximal circumflex artery followed by moderate stenosis, it will be monitored. Known occluded obtuse marginal branches 3. Occluded LAD at the midportion, patent REYES to the LAD with small LAD tapering down after the anastomosis with diffuse disease, not amendable to intervention due to the size of the artery 4. Known to have occluded 2 vein grafts 4. Mildly elevated left ventricular end-diastolic pressure History of congestive heart failure, chronic compensated left ventricular courtney stolic dysfunction, ejection fraction 50-55 percent. Continue to monitor hypertensive heart disease History of aortic valve stenosis, continue to monitor Hypertension, restart home medication monitor blood pressure Hyperlipidemia, poor control, on Lipitor 80 mg daily, I added Zetia 10 mg daily Diabetes mellitus, followed and managed by primary care physician Carotid stenosis mild nonobstructive disease. Continue to monitor Okay for discharge from cardiology standpoint Clinical Quality Measures AMI/AHF: ASA po Prior to arrival: JAMEEL Anthony MD Sep 05, 2020 10:16 am
[2020-09-05] MEDS ORDERED: ASPI-1238 PO (10:28)
[2020-09-05] MEDS ORDERED: EZET10TA17 PO (10:28)
--- NOTE | 2020-09-05 10:28 | Discharge Inst-Post CATH ---
Discharge Inst-CATH/EP Problems Reviewed?: Yes Post Cardiac Cath/EP D/C Inst Follow Up/Plan Hold metformin for [address] PIMENTEL's office in 2 weeks <b>CARDIAC CATH/EP PROCEDURE DISCHARGE INSTRUCTIONS</b> ACTIVITY * Go Home directly and rest. * Limit activity of the leg (or wrist if it was used) for 7 days including aerobics, swimming, jogging, bicycling, etc. * Restrict stair-climbing for 7 days if possible, if not, climb up with your non-cath leg, then bring together on the same step. * Avoid lifting, pushing, pulling or excessive movement of the affected extremity for 7 days. * Customary sexual activity may be resumed after 2 days-use caution not to use a position that strains or causes pain to the affected extremity. * No driving for 24 hours. * NO SMOKING. * Avoid straining for bowel movements for 7 days. * Gentle walking on level ground is allowed. * Returning to work will depend on the type of procedure and the results. Your doctor will discuss this with you. CALL YOUR DOCTOR FOR ANY OF THE FOLLOWING: *If bleeding from the puncture site occurs- Apply gentle pressure to site with clean cloth and call your doctor or EMS. * If a knot or lump forms under the skin, increases in size, or causes pain. * If bruising appears to be worsening or moving further down your leg instead of disappearing. * Temperature above 101 F. CARE OF YOUR GROIN INCISION; * Bruising or purple discoloration of the skin near the puncture site is common. * You may shower only, no bathtub bathing for 5 days. Be careful to avoid slipping as your leg may feel stiff. * If a closure device was used on your femoral artery, please see the attached guide regarding care of the device and your leg. * Leave dressing on FOR 24 hours. CARE OF YOUR WRIST INCISION; * Bruising or purple discoloration of the skin near the puncture site is common. * You may shower. * DO NOT submerge wrist. * Leave dressing on FOR 24 hours. JAMEEL PIMENTEL MD Sep 05, 2020 10:28 am
[2020-09-05 11:30] VITALS: BP 110/69
--- NOTE | 2020-09-06 21:18 | Discharge Summary ---
Discharge Summary Hospital Course Hospital Course Date of Admission: Sep 04, 2020 at 14:13 Admission Diagnosis : Nausea/vomiting Chest pain CAD HTN DMII Chronic stable systolic congestive heart failure Hyperlipidemia Family Physician/Provider: Junior Lauren MD Date of Discharge: 09/06/20 Discharge Diagnosis: Per Cardiology- Chest pain, unstable angina, recurrent episodes of chest pain, difficult to control due to the extensive coronary artery disease, inoperable obtuse marginal branches that were occluded, small vessel disease in the LAD. Medical therapy is recommended. Nausea vomiting improved Per Cardiology- Extensive history of coronary artery disease multiple interventions and bypass in the past. Last cardiac catheterization was carried out in July 2020 patient has severe in-stent restenosis in the right PDA was successful balloon angioplasty with excellent results, had patent REYES to LAD, patent stent in the proximal LAD with borderline lesion in the stent, moderate disease in the circumflex artery nonobstructive disease with known occluded 2 vein grafts probably to the obtuse marginal and diagonal branches. Repeat cardi ac catheterization was done on September 04, 2019 1. Severe in-stent restenosis at the overlapping stents of the right PDA, successful intervention using noncompliant balloon with high pressure 2.5 x 20 mm with multiple inflation with resolution of the restenosis completely 2. Patent stent in the proximal circumflex artery followed by moderate stenosis, it will be monitored. Known occluded obtuse marginal branches 3. Occluded LAD at the midportion, patent REYES to the LAD with small LAD tapering down after the anastomosis with diffuse disease, not amendable to intervention due to the size of the artery 4. Known to have occluded 2 vein grafts 4. Mildly elevated left ventricular end-diastolic pressure History of congestive heart failure, stable Hypertension, restarted home medications Hyperlipidemia, poor control, on Lipitor 80 mg daily, added Zetia 10 mg daily Diabetes mellitus Hospital Course: See discharge diagnosis, cath done with above findings. Labs and Pending Lab Test: Microbiology 09/04/20 MRSA Screen - Final, Complete MRSA not isolated Home Meds Active Zetia (Ezetimibe) 10 Mg Tablet 10 Mg PO DAILY Aspirin EC (Aspirin) 81 Mg Tablet.dr 81 Mg PO DAILY Reported Tylenol Extra Strength (Acetaminophen) 500 Mg Tablet 1,000 Mg PO Q6H PRN Promethazine HCl 50 Mg Tablet 25 Mg PO Q6H PRN Metoprolol Succinate 50 Mg Tab.er.24h 25 Mg PO 1800 TAKES OF A 50MG TAB Metformin HCl 1,000 Mg Tablet 1,000 Mg PO BID WITH MEALS Atorvastatin Calcium 80 Mg Tablet 80 Mg PO 1800 Montelukast Sodium 10 Mg Tablet 10 Mg PO 1800 Breo Ellipta 200-25 Mcg INH (Fluticasone/Vilanterol) 1 Each Blst.w.dev 1 Each IH DAILY Nitroglycerin 0.4 Mg Tab.subl 0.4 Mg SL UD PRN Lisinopril 5 Mg Tablet 5 Mg PO 1800 Neurontin (Gabapentin) 300 Mg Capsule 300 Mg PO TID PRN Ventolin Hfa (Albuterol Sulfate) 18 Gm Hfa.aer.ad 2 Puff INH Q6H PRN Trazodone HCl 100 Mg Tablet 100 Mg PO HS Isosorbide Mononitrate ER (Isosorbide Mononitrate) 60 Mg Tab 60 Mg PO 1800 Plavix (Clopidogrel Bisulfate) 75 Mg Tablet 75 Mg PO 1800 LAST FILLED 04-01-2020 #90/90 DAY SUPPLY Meclizine HCl 25 Mg Tablet 25 Mg PO QID PRN Desvenlafaxine Succinate ER (Desvenlafaxine Succinate) 100 Mg Tab.er.24h 100 Mg PO 1800 Vascepa (Icosapent Ethyl) 1 Gm Capsule 2 Gm PO BID TAKES 2 (1GM) CAPSULES Pantoprazole Sodium 40 Mg Tablet.dr 40 Mg PO 1800 Buspirone HCl 10 Mg Tablet 20 Mg PO TID TAKES 2 (10MG) TABLETS Ranexa (Ranolazine) 1,000 Mg Tab.er.12h 1,000 Mg PO BID Xarelto Tablet (Rivaroxaban) 20 Mg Tablet 20 Mg PO 1800 Assessment/Pt DC Instructions Follow up with Cardiology as directed Discharge Diet: ADA Diet Activity as Tolerated: Yes Discharge Physical Examination Allergies: Coded Allergies: prednisone (Verified Allergy, Intermediate, RASH, 04/23/15) hydrocodone (Verified Allergy, Unknown, 04/23/15) venom-honey bee (Verified Allergy, Unknown, 04/23/15) General Appearance: No Apparent Distress, WD/WN Respiratory: Lungs Clear, Normal Breath Sounds Cardiovascular: Regular Rate, Rhythm, No Murmur Gastrointestinal: Normal Bowel Sounds, Non Tender, Soft Extremity: No Pedal Edema Skin: Normal Color, Warm/Dry Neurologic/Psychiatric: Alert, Normal Mood/Affect Clinical Quality Measures AMI/AHF: ASA po Prior to arrival: JUNIOR Connell MD Sep 06, 2020:18
== END 2020-09-05 11:30 | disposition home or self-care (01) | DRG 250 ==
LOC: EDUNIT# 07:18 → ER 07:20 → CSD 09:24 → 4TH 09-03 12:37 → CSD 09-04 13:11 → OBSVTOIN 09-04 14:13
PROVIDERS: ADMIT Internal Medicine; ATTEND Family Medicine
PROC: 02703ZZ Dilation of Coronary Artery, One Artery, Percutaneous Approach (ICD-10-PCS; principal; 2020-09-04)
PROC: 4A023N7 Measurement of Cardiac Sampling and Pressure, Left Heart, Percutaneous Approach (ICD-10-PCS; 2020-09-04)
PROC: B2111ZZ Fluoroscopy of Multiple Coronary Arteries using Low Osmolar Contrast (ICD-10-PCS; 2020-09-04)
PROC: B2151ZZ Fluoroscopy of Left Heart using Low Osmolar Contrast (ICD-10-PCS; 2020-09-04)
DX: I25.110 Atherosclerotic heart disease of native coronary artery with unstable angina pectoris (principal); I21.4 Non-ST elevation (NSTEMI) myocardial infarction; I50.22 Chronic systolic (congestive) heart failure; T82.855A Stenosis of coronary artery stent, initial encounter; I11.0 Hypertensive heart disease with heart failure; Z20.822 Contact with and (suspected) exposure to COVID-19; E11.9 Type 2 diabetes mellitus without complications; E78.5 Hyperlipidemia, unspecified; I48.91 Unspecified atrial fibrillation; E78.00 Pure hypercholesterolemia, unspecified; K21.9 Gastro-esophageal reflux disease without esophagitis; G89.29 Other chronic pain; F32.9 Major depressive disorder, single episode, unspecified; M54.9 Dorsalgia, unspecified; Z88.5 Allergy status to narcotic agent; Z95.5 Presence of coronary angioplasty implant and graft; Z87.891 Personal history of nicotine dependence; Z95.1 Presence of aortocoronary bypass graft; I25.2 Old myocardial infarction
CPT/HCPCS: 36415; 71045; 80048; 80053; 80061; 82550; 82962; 84484; 85025; 85027; 85610; 85730; 87081; 87635; 93005; 93459; 94640; 94760

== ENCOUNTER 2020-11-16 12:40 | Emergency (ER) | payer MEDICARE, MEDICAID ==
[~2020-11-16] VITALS: Ht 185 cm; Wt 127.0 kg
[~2020-11-16 12:40] MED LIST changes: -ISM60TCR PO; -ISOS30TA3 PO; +ISOS30TA82 PO; +ISOS60TA63 PO; -LISI-556 PO; +LISI-729 PO; +MONT10TA32 PO
[2020-11-16] MEDS ORDERED: PROMETHAZINE INJ 25 MG/ML (PHENERGAN) AMP ONE (12:57)
[2020-11-16 12:59] LABS: BASOPHILS # (AUTO) 0.1 10^3/uL (0.0-0.1); BASOPHILS % (AUTO) 0 % (0-10); EOSINOPHILS # (AUTO) 0.3 10^3/uL (0.0-0.3); EOSINOPHILS % (AUTO) 2 % (0-10); HEMATOCRIT 42 % (40-54); HEMOGLOBIN 13.7 g/dL (13.3-17.7); LYMPHOCYTES # (AUTO) 3.6 10^3/uL (1.0-4.0); LYMPHOCYTES % (AUTO) 23 % (12-44); MEAN CORPUSCULAR HEMOGLOBIN 27 pg (25-34); MEAN CORPUSCULAR HGB CONC 33 g/dL (32-36); MEAN CORPUSCULAR VOLUME 82 fL (80-99); MEAN PLATELET VOLUME 9.7 fL (9.0-12.2); MONOCYTES # (AUTO) 0.7 10^3/uL (0.0-1.0); MONOCYTES % (AUTO) 4 % (0-12); NEUTROPHILS # (AUTO) 11.4 10^3/uL (1.8-7.8); NEUTROPHILS % (AUTO) 71 % (42-75); PLATELET COUNT 394 10^3/uL (130-400); WHITE BLOOD COUNT 16.1 10^3/uL (4.3-11.0)
[2020-11-16] MEDS ORDERED: NS IV 1000 ML 1,000 ML IV SCH (13:00)
[2020-11-16] MEDS ORDERED: meTOprolol 5 MG/5 ML (LOPRESSOR) VIAL IV ONE ×2 (13:00→14:15)
--- NOTE | 2020-11-16 13:01 | ED Chest Pain ---
General Stated Complaint: CP History of Present Illness Date Seen by Provider: Nov 16, 2020 Time Seen by Provider: 12:37 Initial Comments 50-year-old male presents for a 2-day history of chest pain with some nausea. He is known to this facility and has a substantive cardiac history. He had a heart cath in August of this year, Stents were placed by Dr. Fitzgerald. He was seen at [facility] earlier today for elevated glucose and reported chest pain and was sent here via EMS. Glucse 249, patient reports a glucose of 200 this morning when he awoke. He has not had anything to eat or drink, small sips of ice tea unsweetened. He did take promethazine this morning and reports his nausea has improved. He is on Xarelto and Plavix but he has not taken either of these medications for 2 days due to the nausea. He took none of his medications on 11/15/20. He reports taking his blood pressure medication this morning, metoprolol and lisinopril, and his psychiatric medications, he did not take the other medications. He has been taking his Metformin 1000 mg once daily, it is ordered to be twice daily. Timing/Duration: 2-3 days Severity/Quality: moderate (/10 when EMS received patient, after Nitro Xs 3, 11/12 ) Location: substernal Radiation: shoulders (left) Activities at Onset: none Prior CP/Workup: cardiac cath, heart attack ASA po OFFBEARER: Yes NTG SL OFFBEARER: Yes Associated Symptoms: No abdominal pain, No back pain; diaphoresis; No dizziness, No edema, No fatigue, No fever/chills, No headache, No heartburn; nausea/vomiting; No rash, No shortness of breath, No swelling/lump in chest, No syncope Allergies and Home Medications Allergies Coded Allergies: prednisone (Verified Allergy, Intermediate, RASH, 04/23/15) hydrocodone (Verified Allergy, Unknown, 04/23/15) venom-honey bee (Verified Allergy, Unknown, 04/23/15) Home Medications Acetaminophen 500 Mg Tablet, 1,000 MG PO Q6H PRN for PAIN-MILD (1-4), (Reported) Albuterol Sulfate 18 Gm Hfa.aer.ad, 2 PUFF INH Q6H PRN for SHORTNESS OF BREATH, (Reported) Aspirin 81 Mg Tablet., 81 MG PO DAILY Prescribed by: JAMEEL FITZGERALD on 09/05/20 1028 Atorvastatin Calcium 80 Mg Tablet, 80 MG PO 1800, (Reported) Buspirone HCl 10 Mg Tablet, 20 MG PO TID, (Reported) TAKES 2 (10MG) TABLETS Clopidogrel Bisulfate 75 Mg Tablet, 75 MG PO 1800, (Reported) LAST FILLED 04-01-2020 #90/90 DAY SUPPLY Desvenlafaxine Succinate 100 Mg Tab.er.24h, 100 MG PO 1800, (Reported) Ezetimibe 10 Mg Tablet, 10 MG PO DAILY Prescribed by: JAMEEL FITZGERALD on 09/05/20 1028 Fluticasone/Vilanterol 1 Each Blst.w.dev, 1 EACH IH DAILY, (Reported) Gabapentin 300 Mg Capsule, 300 MG PO TID PRN for PAIN-BREAKTHROUGH, (Reported) Icosapent Ethyl 1 Gm Capsule, 2 GM PO BID, (Reported) TAKES 2 (1GM) CAPSULES Isosorbide Mononitrate 60 Mg Tab, 60 MG PO 1800, (Reported) Lisinopril 5 Mg Tablet, 5 MG PO 1800, (Reported) Meclizine HCl 25 Mg Tablet, 25 MG PO QID PRN for VERTIGO/DIZZINESS, (Reported) Metformin HCl 1,000 Mg Tablet, 1,000 MG PO BID WITH MEALS, (Reported) Metoprolol Succinate 50 Mg Tab.er.24h, 25 MG PO 1800, (Reported) TAKES OF A 50MG TAB Montelukast Sodium 10 Mg Tablet, 10 MG PO 1800, (Reported) Nitroglycerin 0.4 Mg Tab.subl, 0.4 MG SL UD PRN for CHEST PAIN, (Reported) Pantoprazole Sodium 40 Mg Tablet.dr, 40 MG PO 1800, (Reported) Promethazine HCl 50 Mg Tablet, 25 MG PO Q6H PRN for NAUSEA/VOMITING-2ND LINE, (Reported) Ranolazine 1,000 Mg Tab.er.12h, 1,000 MG PO BID, (Reported) Rivaroxaban 20 Mg Tablet, 20 MG PO 1800, (Reported) Trazodone HCl 100 Mg Tablet, 100 MG PO HS, (Reported) Patient Home Medication List Home Medication List Reviewed: Yes Review of Systems Review of Systems Constitutional: no symptoms reported, see HPI EENTM: No Symptoms Reported, See HPI Respiratory: No Symptoms Reported, See HPI; Denies Cough Cardiovascular: See HPI, Chest Pain Gastrointestinal: See HPI; Denies Abdominal Pain; Nausea, Poor Appetite Genitourinary: No Symptoms Reported, See HPI Musculoskeletal: no symptoms reported, see HPI Skin: no symptoms reported, see HPI All Other Systems Reviewed Negative Unless Noted: Yes Past Bpjkggh-Iwpvhw-Bxwlqd Hx Past Med/Social Hx: Reviewed Nursing Past Med/Soc Hx Patient Social History Alcohol Beverage of Choice: Beer Drug of Choice: MARIJUANA Type Used: Cigarettes Former Smoker, Quit: Feb 07, 2000 2nd Hand Smoke Exposure: No Recent Hopitalizations: No Immunizations Up To Date Tetanus Booster (TDap): Unknown PED Vaccines UTD: No Date of Pneumonia Vaccine: December 03, 2016 Date of Influenza Vaccine: May 11, 2020 Seasonal Allergies Seasonal Allergies: Yes Past Medical History Surgeries: Yes Angioplasty, CABG, Coronary Stent Respiratory: Yes COPD, Emphysema Currently Using CPAP: Yes (doesnt use it ) Currently Using BIPAP: No Cardiac: Yes Atrial Fibrillation, Congenital Heart Disease, Heart Attack, High Cholesterol, Hypertension Neurological: Yes Stroke, TIA Reproductive Disorders: No Sexually Transmitted Disease: No HIV/AIDS: No Genitourinary: No Gastrointestinal: Yes Gastroesophageal Reflux Musculoskeletal: Yes (SCIATICA) Chronic Back Pain, Spasms Endocrine: Yes Diabetes, Non-Insulin dep HEENT: Yes Eye Injury, Double Vision Loss of Vision: Right Hearing Impairment: Denies Cancer: No Psychosocial: Yes (OCD; INTENTIONAL OVERDOSE/SUICIDE ATTEMPT 06/2017) Sleep Difficulties, Anxiety, Suicide Attempts, Depression Integumentary: No Blood Disorders: No Adverse Reaction/Blood Tranf: No Family Medical History Brain cancer 19 FATHER Congestive heart failure 19 MOTHER Coronary artery disease 19 FATHER Diabetes mellitus 19 MOTHER Heart attack 19 FATHER 19 MOTHER Hypertension 19 FATHER 19 MOTHER Lung cancer 19 FATHER Heart Disease, Cancer, Diabetes Physical Exam Vital Signs Vital Signs - First Documented 11/16/20 12:40 Temp 35.8 Pulse 121 Resp 20 B/P (MAP) 131/103 (112) Pulse Ox 99 O2 Delivery Room Air Capillary Refill : Height, Weight, BMI Height: 6'1.00" Weight: 277lbs. 0.0oz. [id number]; 38.27 BMI Method:Stated General Appearance: No Apparent Distress, WD/WN HEENT: PERRL/EOMI, TMs Normal, Normal ENT Inspection, Pharynx Normal Neck: Full Range of Motion, Normal Inspection, Non Tender, Supple Respiratory: Chest Non Tender, Lungs Clear, Normal Breath Sounds Cardiovascular: No Edema, No Murmur, Normal Peripheral Pulses, Tachycardia Gastrointestinal: Normal Bowel Sounds, Non Tender, Soft Extremity: Normal Capillary Refill, Normal Inspection, Normal Range of Motion, Non Tender, No Calf Tenderness, No Pedal Edema Neurologic/Psychiatric: Alert, Oriented x3, No Motor/Sensory Deficits, Normal Mood/Affect Skin: Normal Color, Warm/Dry Lymphatic: No Adenopathy Procedures/Interventions Suture Size: 4-0 Progress/Results/Core Measures Results/Orders Lab Results Laboratory Tests Test 11/16/20 12:40 11/16/20 13:16 Range/Units White Blood Count 16.1 H 4.3-11.0 10^3/uL Red Blood Count 5.07 4.30-5.52 10^6/uL Hemoglobin 13.7 13.3-17.7 g/dL Hematocrit 42 40-54 % Mean Corpuscular Volume 82 80-99 fL Mean Corpuscular Hemoglobin 27 25-34 pg Mean Corpuscular Hemoglobin Concent 33 32-36 g/dL Red Cell Distribution Width 14.4 10.0-14.5 % Platelet Count 394 130-400 10^3/uL Mean Platelet Volume 9.7 9.0-12.2 fL Immature Granulocyte % (Auto) 0 % Neutrophils (%) (Auto) 71 42-75 % Lymphocytes (%) (Auto) 23 12-44 % Monocytes (%) (Auto) 4 0-12 % Eosinophils (%) (Auto) 2 0-10 % Basophils (%) (Auto) 0 0-10 % Neutrophils # (Auto) 11.4 H 1.8-7.8 10^3/uL Lymphocytes # (Auto) 3.6 1.0-4.0 10^3/uL Monocytes # (Auto) 0.7 0.0-1.0 10^3/uL Eosinophils # (Auto) 0.3 0.0-0.3 10^3/uL Basophils # (Auto) 0.1 0.0-0.1 10^3/uL Immature Granulocyte # (Auto) 0.1 0.0-0.1 10^3/uL Neutrophils % (Manual) 69 % Lymphocytes % (Manual) 18 % Monocytes % (Manual) 10 % Eosinophils % (Manual) 3 % Blood Morphology Comment NORMAL Prothrombin Time 14.0 12.2-14.7 SEC INR Comment 1.0 0.8-1.4 Activated Partial Thromboplast Time 29 24-35 SEC Sodium Level 137 135-145 MMOL/L Potassium Level 4.2 3.6-5.0 MMOL/L Chloride Level 100 98-107 MMOL/L Carbon Dioxide Level 24 21-32 MMOL/L Anion Gap 13 5-14 MMOL/L Blood Urea Nitrogen 9 7-18 MG/DL Creatinine 1.00 0.60-1.30 MG/DL Estimat Glomerular Filtration Rate > 60 BUN/Creatinine Ratio 9 Glucose Level 218 H 70-105 MG/DL Calcium Level 8.7 8.5-10.1 MG/DL Corrected Calcium 8.5 8.5-10.1 MG/DL Magnesium Level 1.8 1.6-2.4 MG/DL Total Bilirubin 0.5 0.1-1.0 MG/DL Aspartate Amino Transf (AST/SGOT) 26 5-34 U/L Alanine Aminotransferase (ALT/SGPT) 27 0-55 U/L Alkaline Phosphatase 81 40-136 U/L Myoglobin 66.2 10.0-92.0 NG/ML Troponin I < 0.028 <0.028 NG/ML C-Reactive Protein High Sensitivity 0.57 H 0.00-0.50 MG/DL B-Type Natriuretic Peptide 47.8 <100.0 PG/ML Total Protein 7.7 6.4-8.2 GM/DL Albumin 4.2 3.2-4.5 GM/DL Urine Color YELLOW Urine Clarity CLEAR Urine pH 6.0 5-9 Urine Specific Notus 1.020 1.016-1.022 Urine Protein NEGATIVE NEGATIVE Urine Glucose (UA) 1+ H NEGATIVE Urine Ketones NEGATIVE NEGATIVE Urine Nitrite NEGATIVE NEGATIVE Urine Bilirubin NEGATIVE NEGATIVE Urine Urobilinogen 0.2 < = 1.0 MG/DL Urine Leukocyte Esterase NEGATIVE NEGATIVE Urine RBC (Auto) NEGATIVE NEGATIVE Urine RBC NONE /HPF Urine WBC NONE /HPF Urine Crystals NONE /LPF Urine Bacteria NEGATIVE /HPF Urine Casts NONE /LPF Urine Mucus NEGATIVE /LPF Urine Culture Indicated NO My Orders Orders - MAYDA TAO Cbc With Automated Diff (11/16/20 12:52) Magnesium (11/16/20 12:52) Chest 1 View, Ap/Pa Only (11/16/20 12:52) Ekg Tracing (11/16/20 12:52) Comprehensive Metabolic Panel (11/16/20 12:52) Myoglobin Serum (11/16/20 12:52) Protime With Inr (11/16/20 12:52) Partial Thromboplastin Time (11/16/20 12:52) Monitor-Rhythm Ecg Trace Only (11/16/20 12:52) Ed Iv/Invasive Line Start (11/16/20 12:52) BNP (11/16/20 12:52) Troponin I (11/16/20 12:52) Ed Iv/Invasive Line Start (11/16/20 12:52) Ns Iv 1000 Ml (Sodium Chloride 0.9%) (11/16/20 13:00) Metoprolol Tartrate Injection (Lopressor (11/16/20 13:00) Ua Culture If Indicated (11/16/20 12:52) Manual Differential (11/16/20 12:40) Promethazine Injection (Phenergan Injec (11/16/20 13:15) Promethazine Injection (Phenergan Injec (11/16/20 12:57) Hs C Reactive Protein (11/16/20 13:09) Morphine Injection (Morphine Injection (11/16/20 13:25) Metoprolol Tartrate Injection (Lopressor (11/16/20 14:15) Medications Given in ED Current Medications Medications Dose Ordered Sig/Colette Route Start Time Stop Time Status Last Admin Dose Admin Metoprolol Tartrate 2.5 mg ONCE ONCE IV 11/16/20 14:15 11/16/20 14:16 DC 11/16/20 14:09 2.5 MG Promethazine HCl 25 mg ONCE ONCE IVP 11/16/20 13:15 11/16/20 13:16 DC 11/16/20 13:05 25 MG Vital Signs/I&O 11/16/20 11/16/20 11/16/20 12:40 12:40 14:59 Temp 35.8 35.8 Pulse 121 93 Resp 20 20 B/P (MAP) 131/103 (112) 128/90 (112) Pulse Ox 99 99 O2 Delivery Room Air Room Air Progress Progress Note : Time: 12:37 Progress Note Patient seen and evaluated, reports nausea is controlled at this time and not requesting any further medication for that. The chest pain is decreasing after 3 nitros will monitor. Will obtain labs, normal saline 1 L per IV, EKG and chest x-ray. Metoprolol 5 mg for tachycardia and hypertension. 1300 blood pressure has decreased to 140/90 heart rate is in the 110-120 range, will hold metoprolol at this time and continue to monitor. Patient is complaining of nausea and has vomited x1, will give promethazine 25 mg IV. 1330 patient reports nausea has improved, continuing to have intermittent chest pain, will give morphine 2 mg IV. 1345 patient does report chest pain has improved. Labs have all been within normal limits blood pressure and pulse have continued to be labile, will give metoprolol 2.5 mg IV and monitor. 1435 blood pressure has improved 126/82 and heart rate 85-95. Patient denies any nausea or chest pain at this time. Spoke with Dr. Fitzgerald recommended discharged home with careful follow-up and resuming all medications as prescribed. Discharge instructions and return precautions reviewed with the patient. All questions answered. Initial ECG Impression Date: Nov 16, 2020 Initial ECG Impression Time: 12:43 Initial ECG Rate: 130 Initial ECG Rhythm: S.Tach Initial ECG Intervals: Normal Initial ECG Intervals HI 122, QRSD 87, QT 317, QTc 466. [place] P 33, QRS -14, T 122. Initial ECG Comparisson: Unchanged Comment No ST elevation Diagnostic Imaging Diagonstic Imaging: Xray Plain Films/CT/US/NM/MRI: chest Comments NAME: OMAR CHATTERJEE [facility] REC#: [id number] PT STATUS: REG ER : 1970 PHYSICIAN: MAYDA TAO ADMIT DATE: 11/16/20/ER Draft Date of Exam:11/16/20 CHEST 1 VIEW, AP/PA ONLY INDICATION: Chest pain. COMPARISON: 09/02/2020. FINDINGS: A single frontal view of the chest demonstrates normal heart size and pulmonary vascularity. The lungs are well aerated and clear. No large pleural effusion or pneumothorax is seen. The visualized osseous structures show no acute abnormalities. Sternotomy wires are noted. IMPRESSION: No acute cardiopulmonary process. Dictated on workstation # [id number] Dict: 11/16/20 1305 Trans: 11/16/20 1307 [id number] Interpreted by: MILDRED RICHARDS MD Electronically signed by: Reviewed: Reviewed by Me Departure Impression Primary Impression: Chest pain Qualified Codes: R07.2 - Precordial pain Additional Impression: Hyperglycemia Disposition: 01 HOME, SELF-CARE Condition: Improved Departure-Patient Inst. Decision time for Depature: 14:35 Referrals: JUNIOR XIE MD (PCP/Family) Primary Care Physician Patient Instructions: Chest Pain (DC), Hyperglycemia, Adult (DC) Add. Discharge Instructions: Increase water intake, 16 ounces every 2 hours while awake. Resume all of your normal home medications. Take your Metformin 1000 mg twice daily. Use the nitro if your chest pain returns, up to 3 doses. Return to the emergency department for chest pain not relieved with your nitroglycerin. Follow-up with your primary care provider for your hyperglycemia, continue to monitor your blood sugars 2-3 times daily. Follow-up with Dr. Fitzgerald as needed. Return to the emergency department for new, urgent healthcare problems. Copy Copies To 1: JUNIOR XIE MD, AMY ARNP Nov 16, 2020 13:01
[2020-11-16 13:06] LABS: ALBUMIN 4.2 GM/DL (3.2-4.5); CHLORIDE 100 MMOL/L (98-107); POTASSIUM 4.2 MMOL/L (3.6-5.0); SODIUM 137 MMOL/L (135-145)
[2020-11-16 13:07] LABS: CALCIUM 8.7 MG/DL (8.5-10.1)
--- NOTE | 2020-11-16 13:07 | Diagnostic Imaging Report ---
INDICATION: Chest pain. COMPARISON: 09/02/2020. FINDINGS: A single frontal view of the chest demonstrates normal heart size and pulmonary vascularity. The lungs are well aerated and clear. No large pleural effusion or pneumothorax is seen. The visualized osseous structures show no acute abnormalities. Sternotomy wires are noted. IMPRESSION: No acute cardiopulmonary process. Dictated by: Dictated on workstation # [id number]
[2020-11-16 13:08] LABS: GLUCOSE 218 MG/DL (70-105)
[2020-11-16 13:09] LABS: TOTAL PROTEIN 7.7 GM/DL (6.4-8.2)
[2020-11-16 13:10] LABS: BILIRUBIN,TOTAL 0.5 MG/DL (0.1-1.0); CARBON DIOXIDE 24 MMOL/L (21-32)
[2020-11-16 13:12] LABS: ALKALINE PHOSPHATASE 81 U/L (40-136); GFR ESTIMATED > 60
[2020-11-16 13:13] LABS: BUN/CREATININE RATIO 9
[2020-11-16 13:15] LABS: ALANINE AMINOTRANSFERASE 27 U/L (0-55); EOSINOPHILS % (MANUAL) 3 %; LYMPHOCYTES % (MANUAL) 18 %; MAGNESIUM 1.8 MG/DL (1.6-2.4); MONOCYTES % (MANUAL) 10 %; NEUTROPHILS % (MANUAL) 69 %; RBC MORPH NORMAL
[2020-11-16] MEDS ORDERED: PROMETHAZINE INJ 25 MG/ML (PHENERGAN) AMP IVP ONE (13:15)
[2020-11-16 13:21] LABS: BILIRUBIN,URINE NEGATIVE (NEGATIVE); CLARITY,URINE CLEAR; COLOR,URINE YELLOW; GLUCOSE, URINE (UA) 1+ (NEGATIVE); KETONES,URINE NEGATIVE (NEGATIVE); LEUKOCYTE ESTERASE ,URINE NEGATIVE (NEGATIVE); NITRITE,URINE NEGATIVE (NEGATIVE); PROTEIN,URINE NEGATIVE (NEGATIVE)
[2020-11-16] MEDS ORDERED: morphine INJ 10 MG/ML 1ML (SYR OR VIAL) IVP STA (13:25)
[2020-11-16 13:27] LABS: BACTERIA,URINE NEGATIVE /HPF
[2020-11-16 14:59] VITALS: BP 128/90
== END 2020-11-16 14:59 | disposition home or self-care (01) ==
LOC: EDUNIT# 12:40 → ER 12:42
DX: R07.9 Chest pain, unspecified (principal); E11.65 Type 2 diabetes mellitus with hyperglycemia; I25.2 Old myocardial infarction; J44.9 Chronic obstructive pulmonary disease, unspecified; I48.91 Unspecified atrial fibrillation; E78.00 Pure hypercholesterolemia, unspecified; I10 Essential (primary) hypertension; F41.9 Anxiety disorder, unspecified; F32.9 Major depressive disorder, single episode, unspecified; K21.9 Gastro-esophageal reflux disease without esophagitis; Z95.5 Presence of coronary angioplasty implant and graft; Z86.73 Personal history of transient ischemic attack (TIA), and cerebral infarction without residual deficits; Z95.1 Presence of aortocoronary bypass graft; Z88.5 Allergy status to narcotic agent; Z88.8 Allergy status to other drugs, medicaments and biological substances; Z87.891 Personal history of nicotine dependence; Z80.1 Family history of malignant neoplasm of trachea, bronchus and lung; Z80.8 Family history of malignant neoplasm of other organs or systems; Z79.84 Long term (current) use of oral hypoglycemic drugs; Z79.82 Long term (current) use of aspirin; Z79.01 Long term (current) use of anticoagulants
CPT/HCPCS: 36415; 71045; 80053; 81000; 83735; 83874; 83880; 84484; 85007; 85027; 85610; 85730; 86141; 93005; 93041

== ENCOUNTER 2020-12-17 04:31 | Inpatient (IN) | payer MEDICARE, MEDICAID ==
[2020-12-17 04:48] LABS: BASOPHILS # (AUTO) 0.1 10^3/uL (0.0-0.1); BASOPHILS % (AUTO) 0 % (0-10); EOSINOPHILS # (AUTO) 0.2 10^3/uL (0.0-0.3); EOSINOPHILS % (AUTO) 1 % (0-10); HEMATOCRIT 34 % (40-54); HEMOGLOBIN 11.7 g/dL (13.3-17.7); LYMPHOCYTES # (AUTO) 4.2 10^3/uL (1.0-4.0); LYMPHOCYTES % (AUTO) 31 % (12-44); MEAN CORPUSCULAR HEMOGLOBIN 28 pg (25-34); MEAN CORPUSCULAR HGB CONC 34 g/dL (32-36); MEAN CORPUSCULAR VOLUME 81 fL (80-99); MEAN PLATELET VOLUME 9.8 fL (9.0-12.2); MONOCYTES # (AUTO) 0.7 10^3/uL (0.0-1.0); MONOCYTES % (AUTO) 6 % (0-12); NEUTROPHILS # (AUTO) 8.2 10^3/uL (1.8-7.8); NEUTROPHILS % (AUTO) 61 % (42-75); PLATELET COUNT 290 10^3/uL (130-400); WHITE BLOOD COUNT 13.3 10^3/uL (4.3-11.0)
--- NOTE | 2020-12-17 04:48 | ED Chest Pain ---
General Chief Complaint: Chest Pain Stated Complaint: CP,DIZZINESS,HYPOTENSION Source: patient, EMS, old records History of Present Illness Date Seen by Provider: December 17, 2020 Time Seen by Provider: 04:32 Initial Comments PT ARRIVES VIA EMS FROM HOME C/O CHEST PAIN PAIN IS IN CENTER OF CHEST, RATES PAIN 4/10 AT THIS TIME--"LIKE I'M BEING POKED" NO RADIATION OF PAIN PAIN BEGAN ABOUT AN HOUR AGO, STATES HE WAS ALREADY AWAKE AND WAS GOING TO GET A DRINK OF WATER C/O FEELING PALPITATIONS C/O DIZZINESS AND FEELS LIKE HE IS GOING TO PASS OUT WHEN HE STANDS UP C/O HEADACHE--WORSE IN UPRIGHT POSITION C/O NAUSEA, NO VOMITING NO SWEATS + SHORTNESS OF BREATH NO SWELLING IN LEGS/ FEET TODAY FOR EMS, BP 77/53 ON SITTING UP, UP TO 86/54 WHEN IN [place] EMS GAVE 324 MG ASPIRIN PT STATES HE HAD SOME CHEST PAIN YESTERDAY AFTERNOON, PERSISTED FOR ABOUT 30 MINUTES, THEN HE TOOK NTG X 3 EVERY 5 MINUTES AND PAIN WENT AWAY COMPLETELYM AND DID NOT RETURN UNTIL THIS AM PT HAS NOT TAKEN ANY NTG THIS AM ONLY MEDICATION CHANGE WAS TOPROL WAS DECREASED FROM 50 MG TO 25 MG A COUPLE OF MONTHS AGO PT WITH EXTENSIVE CARDIAC HISTORY--PT HAD 5 VESSEL CABG AT AGE 39 PT HAS HAD 6-7 STENTS SINCE CABG, AND MULTIPLE ANGIOPLASTIES LAST CARDIAC CATH WAS 07/06/20 AND HAD ANGIOPLASTY FOR OCCLUDED STENTS, AND PT WITH AT LEAST 2 OCCLUDED VEIN BYPASS GRAFTS, OCCLUDED OBTUSE AND LAD PT HAS HAD EPISODES OF NEAR-SYNCOPE AND HYPOTENSION IN THE PAST PT STATES HE HAS HAD AND EPISODE OF ATRIAL FLUTTER IN THE PAST, BUT IS NOT ON ANY ANTI-ARRHYTHMICS. DENIES ANY COVID-19 SYMPTOMS, NO KNOWN SICK CONTACTS OR KNOWN EXPOSURE TO COVID- 19 PT HAS NOT PREVIOUSLY HAD COVID-19, NOR HAS HE BEEN VACCINATED FOR COVID-19 PT HAS HAD MULTIPLE VISITS FOR CHEST PAIN LAST VISIT 11/16/20 FOR CHEST PAIN, TREATED AND RELEASED ADMITTED 09/02-09/05/20 FOR CHEST PAIN PCP: DR. XIE, [facility] PBX REPAIRER: DR. PIMENTEL--HAS NOT SEEN IN OFFICE IN SEVERAL MONTHS Allergies and Home Medications Allergies Coded Allergies: prednisone (Verified Allergy, Intermediate, RASH, 04/23/15) hydrocodone (Verified Allergy, Unknown, 04/23/15) venom-honey bee (Verified Allergy, Unknown, 04/23/15) Home Medications Acetaminophen 500 Mg Tablet, 1,000 MG PO Q6H PRN for PAIN-MILD (1-4), (Reported) Albuterol Sulfate 18 Gm Hfa.aer.ad, 2 PUFF INH Q6H PRN for SHORTNESS OF BREATH, (Reported) Aspirin 81 Mg Tablet.dr, 81 MG PO DAILY Prescribed by: JAMEEL PIMENTEL on 09/05/20 1028 Atorvastatin Calcium 80 Mg Tablet, 80 MG PO 1800, (Reported) Buspirone HCl 10 Mg Tablet, 20 MG PO TID, (Reported) TAKES 2 (10MG) TABLETS Clopidogrel Bisulfate 75 Mg Tablet, 75 MG PO 1800, (Reported) LAST FILLED 04-01-2020 #90/ DAY SUPPLY Desvenlafaxine Succinate 100 Mg Tab.er.24h, 100 MG PO 1800, (Reported) Ezetimibe 10 Mg Tablet, 10 MG PO DAILY Prescribed by: JAMEEL PIMENTEL on 09/05/20 1028 Fluticasone/Vilanterol 1 Each Blst.w.dev, 1 EACH IH DAILY, (Reported) Gabapentin 300 Mg Capsule, 300 MG PO TID PRN for PAIN-BREAKTHROUGH, (Reported) Icosapent Ethyl 1 Gm Capsule, 2 GM PO BID, (Reported) TAKES 2 (1GM) CAPSULES Isosorbide Mononitrate 60 Mg Tab, 60 MG PO 1800, (Reported) Lisinopril 5 Mg Tablet, 5 MG PO 1800, (Reported) Meclizine HCl 25 Mg Tablet, 25 MG PO QID PRN for VERTIGO/DIZZINESS, (Reported) Metformin HCl 1,000 Mg Tablet, 1,000 MG PO BID WITH MEALS, (Reported) Metoprolol Succinate 50 Mg Tab.er.24h, 25 MG PO 1800, (Reported) TAKES OF A 50MG TAB Montelukast Sodium 10 Mg Tablet, 10 MG PO 1800, (Reported) Nitroglycerin 0.4 Mg Tab.subl, 0.4 MG SL UD PRN for CHEST PAIN, (Reported) Pantoprazole Sodium 40 Mg Tablet.dr, 40 MG PO 1800, (Reported) Promethazine HCl 50 Mg Tablet, 25 MG PO Q6H PRN for NAUSEA/VOMITING-2ND LINE, (Reported) Ranolazine 1,000 Mg Tab.er.12h, 1,000 MG PO BID, (Reported) Rivaroxaban 20 Mg Tablet, 20 MG PO 1800, (Reported) Trazodone HCl 100 Mg Tablet, 100 MG PO HS, (Reported) Review of Systems Review of Systems Constitutional: see HPI; No chills, No diaphoresis; dizziness; No fever Respiratory: See HPI, Shortness of Air Cardiovascular: See HPI, Chest Pain; Denies Edema; Lightheadedness, Palpitations; Denies Syncope Gastrointestinal: Denies Abdominal Pain, Denies Diarrhea; Nausea; Denies Vomiting; Other (NO BLACK/BLOODY/TARRY STOOLS. PT WITH CHRONIC NAUSEA IN THE MORNINGS--OCCASIONAL THROWS UP "BILE" ) Musculoskeletal: no symptoms reported; No back pain Skin: no symptoms reported Psychiatric/Neurological: See HPI, Headache; Denies Numbness, Denies Paresthesia, Denies Tingling, Denies Weakness Endocrine: No Symptoms Reported Hematologic/Lymphatic: No Symptoms Reported Past Xxjamyc-Mtledb-Feitln Hx Patient Social History Alcohol Beverage of Choice: Beer Drug of Choice: MARIJUANA Type Used: Cigarettes Former Smoker, Quit: Feb 07, 2000 2nd Hand Smoke Exposure: No Recent Hopitalizations: No Immunizations Up To Date Tetanus Booster (TDap): Unknown PED Vaccines UTD: No Date of Pneumonia Vaccine: December 03, 2016 Date of Influenza Vaccine: May 11, 2020 Seasonal Allergies Seasonal Allergies: Yes Past Medical History Surgeries: Yes Angioplasty, CABG, Coronary Stent Respiratory: Yes COPD, Emphysema Currently Using CPAP: Yes (doesnt use it ) Currently Using BIPAP: No Cardiac: Yes Atrial Fibrillation, Congenital Heart Disease, Heart Attack, High Cholesterol, Hypertension Neurological: Yes Stroke, TIA Reproductive Disorders: No Sexually Transmitted Disease: No HIV/AIDS: No Genitourinary: No Gastrointestinal: Yes Gastroesophageal Reflux Musculoskeletal: Yes (SCIATICA) Chronic Back Pain, Spasms Endocrine: Yes Diabetes, Non-Insulin dep HEENT: Yes Eye Injury, Double Vision Loss of Vision: Right Hearing Impairment: Denies Cancer: No Psychosocial: Yes (OCD; INTENTIONAL OVERDOSE/SUICIDE ATTEMPT 06/2017) Sleep Difficulties, Anxiety, Suicide Attempts, Depression Integumentary: No Blood Disorders: No Adverse Reaction/Blood Tranf: No Family Medical History Brain cancer 19 FATHER Congestive heart failure 19 MOTHER Coronary artery disease 19 FATHER Diabetes mellitus 19 MOTHER Heart attack 19 FATHER 19 MOTHER Hypertension 19 FATHER 19 MOTHER Lung cancer 19 FATHER Heart Disease, Cancer, Diabetes CARDIAC CATH 07/06/20- BY DR. PIMENTEL CONCLUSION: 1. Severe in-stent restenosis at the overlapping stents of the right PDA, successful intervention using noncompliant balloon with high pressure 2.5 x 20 mm with multiple inflation with resolution of the restenosis completely 2. Patent stent in the proximal circumflex artery followed by moderate stenosis, it will be monitored. Known occluded obtuse marginal branches 3. Occluded LAD at the midportion, patent REYES to the LAD with small LAD tapering down after the anastomosis with diffuse disease, not amendable to intervention due to the size of the artery 4. Known to have occluded 2 vein grafts 4. Mildly elevated left ventricular end-diastolic pressure Physical Exam Vital Signs Vital Signs - First Documented 12/17/20 12/17/20 04:31 04:51 Temp 36.1 Pulse 76 Resp 16 B/P (MAP) 88/56 (67) Pulse Ox 95 O2 Delivery Room Air O2 Flow Rate 2.00 Capillary Refill : Height, Weight, BMI Height: 6'1.00" Weight: 277lbs. 0.0oz. [id number]; 37.00 BMI Method:Stated Procedures/Interventions Suture Size: 4-0 Progress/Results/Core Measures Results/Orders Lab Results Laboratory Tests Test 12/17/20 04:35 Range/Units White Blood Count 13.3 H 4.3-11.0 10^3/uL Red Blood Count 4.25 L 4.30-5.52 10^6/uL Hemoglobin 11.7 L 13.3-17.7 g/dL Hematocrit 34 L 40-54 % Mean Corpuscular Volume 81 80-99 fL Mean Corpuscular Hemoglobin 28 25-34 pg Mean Corpuscular Hemoglobin Concent 34 32-36 g/dL Red Cell Distribution Width 13.9 10.0-14.5 % Platelet Count 290 130-400 10^3/uL Mean Platelet Volume 9.8 9.0-12.2 fL Immature Granulocyte % (Auto) 0 % Neutrophils (%) (Auto) 61 42-75 % Lymphocytes (%) (Auto) 31 12-44 % Monocytes (%) (Auto) 6 0-12 % Eosinophils (%) (Auto) 1 0-10 % Basophils (%) (Auto) 0 0-10 % Neutrophils # (Auto) 8.2 H 1.8-7.8 10^3/uL Lymphocytes # (Auto) 4.2 H 1.0-4.0 10^3/uL Monocytes # (Auto) 0.7 0.0-1.0 10^3/uL Eosinophils # (Auto) 0.2 0.0-0.3 10^3/uL Basophils # (Auto) 0.1 0.0-0.1 10^3/uL Immature Granulocyte # (Auto) 0.1 0.0-0.1 10^3/uL Prothrombin Time 14.0 12.2-14.7 SEC INR Comment 1.0 0.8-1.4 Activated Partial Thromboplast Time 27 24-35 SEC Sodium Level 138 135-145 MMOL/L Potassium Level 3.7 3.6-5.0 MMOL/L Chloride Level 101 98-107 MMOL/L Carbon Dioxide Level 25 21-32 MMOL/L Anion Gap 12 5-14 MMOL/L Blood Urea Nitrogen 12 7-18 MG/DL Creatinine 1.61 H 0.60-1.30 MG/DL Estimat Glomerular Filtration Rate 46 BUN/Creatinine Ratio 7 Glucose Level 163 H 70-105 MG/DL Calcium Level 8.6 8.5-10.1 MG/DL Corrected Calcium 8.7 8.5-10.1 MG/DL Magnesium Level 1.7 1.6-2.4 MG/DL Total Bilirubin 0.3 0.1-1.0 MG/DL Aspartate Amino Transf (AST/SGOT) 17 5-34 U/L Alanine Aminotransferase (ALT/SGPT) 18 0-55 U/L Alkaline Phosphatase 68 40-136 U/L Total Creatine Kinase 95 30-200 U/L Creatine Kinase MB 0.9 <6.6 NG/ML Myoglobin 83.7 10.0-92.0 NG/ML Troponin I < 0.028 <0.028 NG/ML B-Type Natriuretic Peptide 35.0 <100.0 PG/ML Total Protein 7.0 6.4-8.2 GM/DL Albumin 3.9 3.2-4.5 GM/DL Amylase Level 40 25-125 U/L Lipase 45 8-78 U/L My Orders Orders - KATHY JOHNSON DO Cbc With Automated Diff (12/17/20 04:42) Magnesium (12/17/20 04:42) Chest 1 View, Ap/Pa Only (12/17/20 04:42) Ekg Tracing (12/17/20 04:42) Comprehensive Metabolic Panel (12/17/20 04:42) Myoglobin Serum (12/17/20 04:42) Protime With Inr (12/17/20 04:42) Partial Thromboplastin Time (12/17/20 04:42) O2 (12/17/20 04:42) Monitor-Rhythm Ecg Trace Only (12/17/20 04:42) Ed Iv/Invasive Line Start (12/17/20 04:42) Creatine Kinase (12/17/20 04:42) Creatine Kinase Mb (12/17/20 04:42) Lipase (12/17/20 04:42) Amylase (12/17/20 04:42) BNP (12/17/20 04:42) Troponin I (12/17/20 04:42) Ed Iv/Invasive Line Start (12/17/20 04:48) Ns Iv 1000 Ml (Sodium Chloride 0.9%) (12/17/20 05:00) Ed Iv/Invasive Line Start (12/17/20 05:19) Ns Iv 1000 Ml (Sodium Chloride 0.9%) (12/17/20 05:30) Ed Iv/Invasive Line Start (12/17/20 05:19) Ns Iv 1000 Ml (Sodium Chloride 0.9%) (12/17/20 05:30) Vital Signs/I&O 12/17/20 12/17/20 04:31 04:51 Temp 36.1 Pulse 76 Resp 16 B/P (MAP) 88/56 (67) Pulse Ox 95 O2 Delivery Room Air Nasal Cannula O2 Flow Rate 2.00 Progress Progress Note : Progress Note PLACED ON MONITOR AND IN TRENDELENBERG POSITION 2ND LARGE BORE IV STARTED AND PT WAS STARTED ON SALINE X 2 LITERS, WITH BP UP TO 125 SYSTOLIC WITH TOTAL OF 1 LITER INFUSED PT HAVING OCCASIONAL PVC'S ON MONITOR, THESE COINCIDE WITH PT'S SENSATION OF PALPITATIONS. Initial ECG Impression Date: December 17, 2020 Initial ECG Impression Time: 04:36 Initial ECG Rate: 77 Initial ECG Rhythm: Normal Sinus Initial ECG Impression: Nonspecific Changes (ST DEPRESSION, T WAVE INVERSION ANTERIOR-LATERAL LEADS) Diagnostic Imaging Comments CXR--PER RADIOLOGIST REPORT AT 0613 FINDINGS: Enlargement of the cardiac silhouette redemonstrated. Sternal wires midline and intact. No vascular congestion, edema, pneumonia, effusion or pneumothorax. IMPRESSION: Stable chronic findings Reviewed: Reviewed by Me Departure Communication (Admissions) 525--SPOKE WITH DR. LYMAN, PBX REPAIRER. WILL SEE PT IN CONSULT. NO ADDITIONAL RECOMMENDATIONS AT THIS TIME 05--SPOKE WITH DR. GORDON, HOSPITALIST FOR [facility], ACCEPTS PT FOR ADMIT. NO ADDITIONAL RECOMMENDATIONS AT THIS TIME Impression Primary Impression: Chest pain Additional Impressions: Hypotension Coronary artery disease NIDDM Disposition: ADMITTED INPATIENT Condition: Improved Admissions Decision to Admit Reason: Admit from ER (General) Decision to Admit/Date: December 17, 2020 Time/Decision to Admit Time: 05:25 Departure-Patient Inst. Referrals: JUNIOR XIE MD (PCP/Family) Primary Care Physician KATHY JOHNSON DO December 17, 2020 04:48
[2020-12-17] MEDS ORDERED: NS IV 1000 ML 1,000 ML IV SCH ×3 (05:00→05:30)
[2020-12-17 05:02] LABS: ALBUMIN 3.9 GM/DL (3.2-4.5)
[2020-12-17 05:03] LABS: POTASSIUM 3.7 MMOL/L (3.6-5.0)
[2020-12-17 05:04] LABS: CALCIUM 8.6 MG/DL (8.5-10.1)
[2020-12-17 05:07] LABS: BILIRUBIN,TOTAL 0.3 MG/DL (0.1-1.0)
[2020-12-17 05:09] LABS: CREATININE SERUM 1.61 MG/DL (0.60-1.30)
[2020-12-17 05:12] LABS: MAGNESIUM 1.7 MG/DL (1.6-2.4)
[2020-12-17 05:20] LABS: CREATINE KINASE MB 0.9 NG/ML (<6.6)
[2020-12-17] MEDS ORDERED: fentaNYL INJ 100 MCG/2 ML AMP IVP STA (06:03)
--- NOTE | 2020-12-17 06:08 | Diagnostic Imaging Report ---
INDICATION: Chest pain. Compared 11/16/2020 FINDINGS: Enlargement of the cardiac silhouette redemonstrated. Sternal wires midline and intact. No vascular congestion, edema, pneumonia, effusion or pneumothorax. IMPRESSION: Stable chronic findings Dictated by: Dictated on workstation # [id number]
[2020-12-17] MEDS: NS IV 1000 ML 1,000 ML IV SCH ×3 (08:22→20:50)
[2020-12-17 08:25] LABS: AMPHETAMINE SCREEN, URINE NEGATIVE (NEGATIVE); BARBITURATE SCREEN URINE NEGATIVE (NEGATIVE); BENZODIAZEPINES SCREEN URINE NEGATIVE (NEGATIVE); CANNABINOID SCREEN, URINE POSITIVE (NEGATIVE); COCAINE SCREEN URINE NEGATIVE (NEGATIVE); METHADONE STAT NEGATIVE (NEGATIVE); METHAMPHETAMINE SCREEN URINE S NEGATIVE (NEGATIVE); OPIATE SCREEN URINE NEGATIVE (NEGATIVE); OXYCODONE STAT NEGATIVE (NEGATIVE); PROPOXYPHENE STAT NEGATIVE (NEGATIVE); TRICYCLIC ANTIDEPRESSANTS SCRE NEGATIVE (NEGATIVE)
[2020-12-17] MEDS ORDERED: ONDANSETRON 4 MG/2 ML (SDV) Z0FRAN IV PRN (08:30)
[2020-12-17] MEDS ORDERED: ASPIRIN E.C. 81 MG (ECOTRIN) TAB PO SCH (09:00)
[2020-12-17 09:02] LABS: BILIRUBIN,URINE NEGATIVE (NEGATIVE); CLARITY,URINE CLEAR; COLOR,URINE YELLOW; GLUCOSE, URINE (UA) NEGATIVE (NEGATIVE); KETONES,URINE NEGATIVE (NEGATIVE); LEUKOCYTE ESTERASE ,URINE NEGATIVE (NEGATIVE); NITRITE,URINE NEGATIVE (NEGATIVE); PROTEIN,URINE NEGATIVE (NEGATIVE)
[2020-12-17 09:34] LABS: BACTERIA,URINE NEGATIVE /HPF; SQUAMOUS EPITHELIAL CELL,UR RARE /HPF
[2020-12-17] MEDS ORDERED: ACETAMINOPHEN 500 MG TAB (TYLENOL) PO PRN (10:15)
[2020-12-17] MEDS ORDERED: RT-ALBUTEROL SULF 2.5 MG/3 ML PRE-MIX VIAL INH PRN (12:00)
--- NOTE | 2020-12-17 12:08 | History & Physical-Hospitalist ---
History of Present Illness HPI/Chief Complaint This is an unfortunate 50-year-old white male with coronary artery disease. He presents to the emergency room with complaints of chest pain that is classic for his angina. He had just gotten up to walk to the kitchen to get something to drink. This morning he continues to complain of chest pain however he keeps falling asleep during our conversation. His blood pressure was quite low in the emergency room and he did not take nitro nor is it been given to him. Medications have been held because of his soft blood pressure. It is improving now. Opponent is negative EKG shows anterior ST segment changes no old one was available for comparison Source: patient, old records Exam Limitations: other (Sleepiness) Date Seen 12/17/20 Time Seen by a Provider: 09:15 Attending Physician Mell Brice MD PCP Junior Xie MD Referring Physician Date of Admission December 17, 2020 at 05:30 Home Medications & Allergies Home Medications Reviewed patient Home Medication Reconciliation performed by pharmacy medication reconciliations freezer laboratory technician and/or nursing. Patients Allergies have been reviewed. Allergies Allergies Coded Allergies prednisone (Verified Allergy, Intermediate, RASH, 04/23/15) hydrocodone (Verified Allergy, Unknown, 04/23/15) venom-honey bee (Verified Allergy, Unknown, 04/23/15) Patient Social History Marrital Status: single Employed/Student: unemployed Smoking Status: Former Smoker Immunizations Up To Date Tetanus Booster (TDap): Unknown Hepatitis A: No Hepatitis B: No TB Skin Test: None Date of Pneumonia Vaccine: December 03, 2016 Current Status Primary Language: Danish Past Medical History Coronary artery disease DM NARGIS Obesity Family Medical History Family Hx: CARDIAC CATH 07/06/20- BY DR. PIMENTEL CONCLUSION: 1. Severe in-stent restenosis at the overlapping stents of the right PDA, successful intervention using noncompliant balloon with high pressure 2.5 x 20 mm with multiple inflation with resolution of the restenosis completely 2. Patent stent in the proximal circumflex artery followed by moderate stenosis, it will be monitored. Known occluded obtuse marginal branches 3. Occluded LAD at the midportion, patent REYES to the LAD with small LAD tapering down after the anastomosis with diffuse disease, not amendable to intervention due to the size of the artery 4. Known to have occluded 2 vein grafts 4. Mildly elevated left ventricular end-diastolic pressure Review of Systems Constitutional: see HPI EENTM: no symptoms reported Respiratory: dyspnea on exertion Cardiovascular: chest pain Gastrointestinal: no symptoms reported Genitourinary: no symptoms reported Musculoskeletal: no symptoms reported Skin: no symptoms reported Psychiatric/Neurological: No Symptoms Reported Physical Exam Physical Exam Vital Signs Vital Signs - First Documented 12/17/20 12/17/20 04:31 04:51 Temp 36.1 Pulse 76 Resp 16 B/P (MAP) 88/56 (67) Pulse Ox 95 O2 Delivery Room Air O2 Flow Rate 2.00 Capillary Refill : Less Than 3 Seconds Height, Weight, BMI Height: 6'1.00" Weight: 277lbs. 0.0oz. 125.823039bq; 37.00 BMI Method:Stated General Appearance: Obese, Other (Sleepy lying flat) Neck: Non Tender, Supple Respiratory: Lungs Clear, Normal Breath Sounds, No Accessory Muscle Use, No Respiratory Distress Cardiovascular: Regular Rate, Rhythm, No Edema, No JVD, Systolic Murmur Gastrointestinal: Normal Bowel Sounds, Non Tender, Soft Back: Normal Inspection Extremity: Normal Capillary Refill, Non Tender, No Calf Tenderness Neurologic/Psychiatric: Other (Sleepy) Results Results/Procedures Labs Laboratory Tests 12/17/20 04:35 Patient resulted labs reviewed. Imaging: Reviewed Imaging Report Assessment/Plan Admission Diagnosis Chest pain rule out OH Coronary artery disease Obesity Diabetes type 2 Hyperlipidemia Obstructive sleep apnea noncompliant with CPAP Hypotension Plan to rule out myocardial infarction consult cardiology further evaluation based on cardiology recommendations Admission Status: Observation Clinical Quality Measures AMI/AHF: ASA po Prior to arrival: Yes (324MG PO VIA EMS EN ROUTE) Copy Copies To 1: JUNIOR XIE MD, KATHLEEN M MD December 17, 2020 12:08
[2020-12-17] MEDS: inSUlin ASPART (NovoLOG) 1 UNIT/0.01 ML (CHARGE PER UNIT) SC SCH ×2 (13:25→18:00)
[2020-12-17] MEDS: busPIRone 10 MG (BUSPAR) TAB PO SCH ×2 (15:01→20:49)
--- NOTE | 2020-12-17 15:39 | Consultation-Cardiology ---
HPI-Cardiology Cardiology Consultation: Date of Consultation 12/17/20 Date of Admission Attending Physician Mell Brice MD Admitting Physician Marta Lauren MD Consulting Physician Marcia SHANKS MD HPI: Time Seen by a Provider: 14:45 Chief Complaint: chest pain This is a 50 year old patient with significant CAD with CABG, recent PTCA by Dr Fitzgerald in Jul 2020. He presents with Chest pain which according to the patient is similar to his previous episodes requiring PTCA. however he complains of focal chest pain and continuous pain for over 24 hours. He also complained of dizz iness. He was found to be hypotensive in the ER and give bolus fluids. all anti- hypertensives were held. EKG did not reveal any acute ST-T wave changes. Review of Systems-Cardiology Review of Systems Constitutional: As described under HPI; No As described under HPI, No no symptoms reported, No chills, No fever; lightheadedness Eyes: No As described under HPI, No no symptoms reported, No blindness, No blurred vision, No contact lenses, No drainage, No decreased acuity, No foreign body sensation, No pain, No vision change Ears/Nose/Throat: No As described under HPI, No no symptoms reported, No chronic hearing loss, No ear discharge, No ear pain, No nasal drainage, No ulce rations Respiratory: No no symptoms reported; As described under HPI; No As described under HPI, No cough, No orthopnea, No shortness of breath, No SOB with excertion Cardiovascular: No no symptoms reported; As described under HPI; No As described under HPI; chest pain; No edema, No irregular heart rate, No lightheadedness, No palpitations Gastrointestinal: No no symptoms reported, No As described under HPI, No abdomen distended, No abdominal pain, No blood streaked bowels, No constipation, No diarrhea, No nausea, No vomiting, No stool coloration changes Genitourinary: No As described under HPI, No burning, No dysuria, No discharge, No frequency, No flank pain, No hematuria, No urgency Skin: No rash, No skin related problems, No ulcerations Psychiatric/Neurological: No anxiety, No depression, No seizure, No focal weakness, No syncope Hematologic: No bleeding abnormalities [id number]-[id number] Hx Patient Social History Marrital Status: single Employed/Student: unemployed Smoking Status: Former Smoker Former smoker/When Quit: Apr 07, 1999 2nd Hand Smoke Exposure: No Have you traveled recently?: No Alcohol Use?: Yes Substance type: Marijuana Immunizations Up To Date Tetanus Booster (TDap): Unknown Date of Pneumonia Vaccine: December 03, 2016 Date of Influenza Vaccine: May 19, 2020 Past Medical History PMH As described under Assessment. Family Medical History Family History: Brain cancer 19 FATHER Congestive heart failure 19 MOTHER Coronary artery disease 19 FATHER Diabetes mellitus 19 MOTHER Heart attack 19 FATHER 19 MOTHER Hypertension 19 FATHER 19 MOTHER Lung cancer 19 FATHER Allergies and Home Medications Allergies Coded Allergies: prednisone (Verified Allergy, Intermediate, RASH, 04/23/15) hydrocodone (Verified Allergy, Unknown, 04/23/15) venom-honey bee (Verified Allergy, Unknown, 04/23/15) Home Medications Acetaminophen 500 Mg Tablet, 1,000 MG PO Q6H PRN for PAIN-MILD (1-4), (Reported) Last Action: Continued Albuterol Sulfate 18 Gm Hfa.aer.ad, 2 PUFF INH Q6H PRN for SHORTNESS OF BREATH, (Reported) Last Action: Continued Aspirin 81 Mg Tablet.dr, 81 MG PO DAILY Prescribed by: JAMEEL FITZGERALD on 09/05/20 1028 Last Action: Continued Atorvastatin Calcium 80 Mg Tablet, 80 MG PO 1800, (Reported) Last Action: Continued Buspirone HCl 10 Mg Tablet, 20 MG PO TID, (Reported) TAKES 2 (10MG) TABLETS Last Action: Continued Clopidogrel Bisulfate 75 Mg Tablet, 75 MG PO 1800, (Reported) LAST FILLED 04-01-2020 #90/90 DAY SUPPLY Last Action: Continued Desvenlafaxine Succinate 100 Mg Tab.er.24h, 100 MG PO 1800, (Reported) Last Action: Converted Ezetimibe 10 Mg Tablet, 10 MG PO DAILY Prescribed by: JAMEEL FITZGERALD on 09/05/20 1028 Last Action: Continued Fluticasone/Vilanterol 1 Each Blst.w.dev, 1 EACH IH DAILY, (Reported) Last Action: Continued Gabapentin 300 Mg Capsule, 300 MG PO TID PRN for PAIN-BREAKTHROUGH, (Reported) Last Action: Continued Icosapent Ethyl 1 Gm Capsule, 2 GM PO BID, (Reported) TAKES 2 (1GM) CAPSULES Last Action: Continued Isosorbide Mononitrate 60 Mg Tab, 60 MG PO 1800, (Reported) Last Action: Continued Lisinopril 5 Mg Tablet, 5 MG PO 1800, (Reported) Last Action: Held Meclizine HCl 25 Mg Tablet, 25 MG PO QID PRN for VERTIGO/DIZZINESS, (Reported) Last Action: Held Metformin HCl 1,000 Mg Tablet, 1,000 MG PO BID WITH MEALS, (Reported) Last Action: Held Metoprolol Succinate 50 Mg Tab.er.24h, 25 MG PO 1800, (Reported) TAKES OF A 50MG TAB Last Action: Held Montelukast Sodium 10 Mg Tablet, 10 MG PO 1800, (Reported) Last Action: Continued Nitroglycerin 0.4 Mg Tab.subl, 0.4 MG SL UD PRN for CHEST PAIN, (Reported) Last Action: Held Pantoprazole Sodium 40 Mg Tablet.dr, 40 MG PO 1800, (Reported) Last Action: Continued Promethazine HCl 50 Mg Tablet, 25 MG PO Q6H PRN for NAUSEA/VOMITING-2ND LINE, (Reported) Last Action: Held Ranolazine 1,000 Mg Tab.er.12h, 1,000 MG PO BID, (Reported) Last Action: Converted Rivaroxaban 20 Mg Tablet, 20 MG PO 1800, (Reported) Last Action: Continued Trazodone HCl 100 Mg Tablet, 100 MG PO HS, (Reported) Last Action: Continued Patient Home Medication List Home Medication List Reviewed: Yes Physical Exam-Cardiology Physical Exam Vital Signs/I&O 12/18/20 12/18/20 12/18/20 12/18/20 11:45 12:32 16:00 18:44 Temp 35.5 35.9 Pulse 78 82 79 Resp 18 17 B/P (MAP) 168/107 (127) 154/80 (104) Pulse Ox 100 97 98 O2 Delivery Nasal Cannula Nasal Cannula Nasal Cannula O2 Flow Rate 1.00 1.00 1.00 12/18/20 12/18/20 12/18/20 19:00 20:27 20:40 Temp 36.4 Pulse 88 88 Resp 18 B/P (MAP) 153/70 (97) Pulse Ox 97 O2 Delivery Nasal Cannula Room Air O2 Flow Rate 1.00 12/18/20 00:00 Intake Total 2880 ml Output Total 3375 ml Balance -495 ml Capillary Refill : Less Than 3 Seconds Constitutional: appears stated age; No apparent distress; well-developed, well- nourished HEENT: PERRL; No discharge; hearing is well preserved, oral hygience is good; No ulceration, No xanthelasmas are seen Neck: No carotid bruit; carotid pulses are 2 + bilaterally Respiratory: chest is bilaterally symmetric, lungs clear to auscultation Cardiovascular: regular rate-rhythm, S1 and S2 Gastrointestinal: soft, audible bowel sounds; No spleenomegaly Rectal: deferred Extremities: No clubbing, No cyanosis; no lower extremity edema bilateral; No significant edema Neurologic/Psychiatric: no motor/sensory deficits, alert, normal mood/affect, oriented x 3, power is 5/5 both on sides Skin: normal color; No rash, No ulcerations Data Review Labs Laboratory Tests 12/18/20 02:36: White Blood Count 9.0, Red Blood Count 4.14L, Hemoglobin 11.1L, Hematocrit 34L, Mean Corpuscular Volume 82, Mean Corpuscular Hemoglobin 27, Mean Corpuscular Hemoglobin Concent 33, Red Cell Distribution Width 14.0, Platelet Count 230, Mean Platelet Volume 9.8, Immature Granulocyte % (Auto) 0, Neutrophils (%) (Auto) 52, Lymphocytes (%) (Auto) 39, Monocytes (%) (Auto) 6, Eosinophils (%) (Auto) 3, Basophils (%) (Auto) 0, Neutrophils # (Auto) 4.7, Lymphocytes # (Auto) 3.5, Monocytes # (Auto) 0.5, Eosinophils # (Auto) 0.3, Basophils # (Auto) 0.0, Immature Granulocyte # (Auto) 0.0, Sodium Level 141, Potassium Level 4.3, Chloride Level 106, Carbon Dioxide Level 27, Anion Gap 8, Blood Urea Nitrogen 8, Creatinine 0.82, Estimat Glomerular Filtration Rate > 60, BUN/Creatinine Ratio 10, Glucose Level 107H, Calcium Level 8.2L, Phosphorus Level 5.1H, Magnesium Level 1.8, Triglycerides Level 249H, Cholesterol Level 236H, LDL Cholesterol Direct 174H, VLDL Cholesterol 50H, HDL Cholesterol 27L 12/18/20 15:38: Glucometer 192H 12/18/20 19:20: Glucometer 145H Microbiology 12/17/20 MRSA Screen - Final, Complete MRSA not isolated ECG Impression ECG Initial ECG Rhythm: Normal Sinus Initial ECG Impression: Nonspecific Changes A/P-Cardiology Assessment/Admission Diagnosis Possible unstable angina. Plan Possible unstable angina, serial troponin negative. Negative EKG. Echocardiogram is recommended. Continue dual antiplatelet therapy. Recommend nuclear stress test on Saturday. Thank you for your consultation. Please call me if you have any questions. Alla Shanks MD, FACP, FACC, FSCAI, FHRS, CCDS Interventional Cardiology Cardiac Electrophysiology Vascular Medicine and Endovascular Interventions Clinical Quality Measures AMI/AHF: ASA po Prior to arrival: Yes (324MG PO VIA EMS EN ROUTE) Marcia SHANKS MD December 17, 2020 15:39
[2020-12-17] MEDS ORDERED: morphine INJ 4 MG/ML 1 ML (VIAL/SYRINGE) ONE ×2 (17:49→19:27)
[2020-12-17] MEDS: VENlafaxine XR 75 MG (EFFEXOR XR) CAP PO SCH (17:58)
[2020-12-17] MEDS: PANTOPRAZOLE 40 MG (PROTONIX) TAB PO SCH (17:58)
[2020-12-17] MEDS: morphine INJ 4 MG/ML 1 ML (VIAL/SYRINGE) IVP PRN ×4 (17:58→22:53)
[2020-12-17] MEDS: RIVAROXABAN 20 MG TABLET (XARELTO) PO SCH (17:59)
[2020-12-17] MEDS: CLOPIDOGREL 75 MG (PLAVIX) TABLET PO SCH (17:59)
[2020-12-17] MEDS: MONTELUKAST 10 MG (SINGULAIR) TAB PO SCH (17:59)
[2020-12-17] MEDS: ISOSORBIDE MONONITRATE 60 MG (IMDUR) TAB PO SCH (17:59)
[2020-12-17] MEDS: GABAPENTIN 300 MG (NEURONTIN) CAP PO PRN (19:35)
[2020-12-17] MEDS: inSUlin ASPART (NovoLOG) 1 UNIT/0.01 ML (CHARGE PER UNIT) SQ SCH ×2 (20:30→20:55)
[2020-12-17] MEDS: traZODone 100 MG (DESYREL) TAB PO SCH (20:49)
[2020-12-17] MEDS: RANOLAZINE ER 500 MG TAB (RANEXA) PO SCH (20:49)
[2020-12-17] MEDS ORDERED: ICOSAPENT ETHYL 1 GM PO SCH (21:00)
[2020-12-18] MEDS: morphine INJ 4 MG/ML 1 ML (VIAL/SYRINGE) IVP PRN ×5 (00:15→23:04)
[2020-12-18 02:52] LABS: BASOPHILS % (AUTO) 0 % (0-10); EOSINOPHILS # (AUTO) 0.3 10^3/uL (0.0-0.3); EOSINOPHILS % (AUTO) 3 % (0-10); HEMATOCRIT 34 % (40-54); HEMOGLOBIN 11.1 g/dL (13.3-17.7); LYMPHOCYTES # (AUTO) 3.5 10^3/uL (1.0-4.0); LYMPHOCYTES % (AUTO) 39 % (12-44); MEAN CORPUSCULAR HEMOGLOBIN 27 pg (25-34); MEAN CORPUSCULAR HGB CONC 33 g/dL (32-36); MEAN CORPUSCULAR VOLUME 82 fL (80-99); MEAN PLATELET VOLUME 9.8 fL (9.0-12.2); MONOCYTES # (AUTO) 0.5 10^3/uL (0.0-1.0); MONOCYTES % (AUTO) 6 % (0-12); NEUTROPHILS # (AUTO) 4.7 10^3/uL (1.8-7.8); NEUTROPHILS % (AUTO) 52 % (42-75); PLATELET COUNT 230 10^3/uL (130-400)
[2020-12-18] MEDS: NS IV 1000 ML 1,000 ML IV SCH (03:02)
[2020-12-18 03:03] LABS: CHLORIDE 106 MMOL/L (98-107); POTASSIUM 4.3 MMOL/L (3.6-5.0); SODIUM 141 MMOL/L (135-145)
[2020-12-18 03:04] LABS: CALCIUM 8.2 MG/DL (8.5-10.1)
[2020-12-18 03:05] LABS: GLUCOSE 107 MG/DL (70-105); TRIGLYCERIDES 249 MG/DL (<150); VLDL CHOLESTEROL 50 MG/DL (5-40)
[2020-12-18 03:06] LABS: CARBON DIOXIDE 27 MMOL/L (21-32)
[2020-12-18 03:09] LABS: CREATININE SERUM 0.82 MG/DL (0.60-1.30); GFR ESTIMATED > 60; PHOSPHORUS 5.1 MG/DL (2.3-4.7)
[2020-12-18 03:10] LABS: BUN/CREATININE RATIO 10; CHOLESTEROL 236 MG/DL (< 200)
[2020-12-18 03:11] LABS: HDL CHOLESTEROL 27 MG/DL (40-60); MAGNESIUM 1.8 MG/DL (1.6-2.4)
[2020-12-18] MEDS: inSUlin ASPART (NovoLOG) 1 UNIT/0.01 ML (CHARGE PER UNIT) SQ SCH ×4 (04:10→20:39)
[2020-12-18] MEDS: ACETAMINOPHEN 500 MG TAB (TYLENOL) PO PRN ×3 (04:44→22:08)
[2020-12-18] MEDS: FLUTICASONE/VILANTEROL 200 MCG 14'S (BREO) IH SCH (07:08)
--- NOTE | 2020-12-18 08:00 | Diagnostic Imaging Report ---
INDICATION: DYSPNEA. TIME OF EXAM: 3:12 AM CORRELATION is made with prior chest from one day earlier. The heart is enlarged but stable. There are changes of median sternotomy. No infiltrate or effusion is seen. There is no pneumothorax. IMPRESSION: No acute cardiopulmonary process is detected. Dictated by: Dictated on workstation # [id number]
[2020-12-18] MEDS: ASPIRIN E.C. 81 MG (ECOTRIN) TAB PO SCH (08:10)
[2020-12-18] MEDS: eZETimibe 10 MG (ZETIA) TABLET PO SCH (08:10)
[2020-12-18] MEDS: RANOLAZINE ER 500 MG TAB (RANEXA) PO SCH ×2 (08:11→20:39)
[2020-12-18] MEDS: busPIRone 10 MG (BUSPAR) TAB PO SCH ×3 (08:11→20:39)
[2020-12-18] MEDS: GABAPENTIN 300 MG (NEURONTIN) CAP PO PRN (08:49)
[2020-12-18] MEDS ORDERED: BENZOCAINE 20% ORAL GEL (ORALJEL MAX ST) MM PRN (09:45)
--- NOTE | 2020-12-18 10:45 | Progress Note - Hospitalist ---
Subjective HPI/CC On Admission Date Seen by Provider: December 18, 2020 Time Seen by Provider: 09:15 This is an unfortunate 50-year-old white male with coronary artery disease. He presents to the emergency room with complaints of chest pain that is classic for his angina. He had just gotten up to walk to the kitchen to get something to drink. This morning he continues to complain of chest pain however he keeps falling asleep during our conversation. His blood pressure was quite low in the emergency room and he did not take nitro nor is it been given to him. Medications have been held because of his soft blood pressure. It is improving now. Opponent is negative EKG shows anterior ST segment changes no old one was available for comparison Subjective/Events-last exam Currently complaining of tooth ache for which she has been receiving morphine. He still has some chest discomfort that really has not changed in nature. Opponents were negative EKG does show improvement in the ST segment changes in t he anterior lateral leads. Blood pressure is more stable he is up 4 kg and his weight. He is much more awake this morning. Discussed his case with yesterday who recommends getting a stress thallium tomorrow. Review of Systems HEENT: Other Cardiovascular: Chest Pain (Toothache) Objective Exam Vital Signs Vital Signs Date Time Temp Pulse Resp B/P (MAP) Pulse Ox O2 Delivery O2 Flow Rate FiO2 12/18/20 09:01 36.8 12/18/20 09:00 79 19 122/75 (91) 96 Nasal Cannula 2.00 Capillary Refill : Less Than 3 Seconds General Appearance: WD/WN, Obese HEENT: Normal ENT Inspection Neck: Non Tender, Supple Respiratory: Chest Non Tender, Lungs Clear, Normal Breath Sounds, No Accessory Muscle Use, No Respiratory Distress Cardiovascular: Regular Rate, Rhythm, No Gallop, No JVD, Normal Peripheral Pulses Gastrointestinal: No Organomegaly, Non Tender, Soft Rectal: Deferred Back: Normal Inspection Extremity: Pedal Edema Neurologic/Psychiatric: Alert, Oriented x3, No Motor/Sensory Deficits, Normal Mood/Affect Skin: Normal Color, Warm/Dry Results/Procedures Lab Laboratory Tests 12/18/20 02:36 Patient resulted labs reviewed. Imaging: Reviewed Imaging Report Assessment/Plan Assessment and Plan Assess & Plan/Chief Complaint And to transfer to fourth floor on telemetry with a stress thallium planned for tomorrow and use acetaminophen for pain Diagnosis/Problems Diagnosis/Problems (1) Chest pain Status: Acute (2) Coronary artery disease Status: Chronic Qualifiers: Coronary Disease-Associated Artery/Lesion type: bypass graft (3) Hypotension Status: Resolved Resolution Date/Time: 12/18/20 @ 10:53 (4) Marijuana use Status: Chronic (5) CVA (cerebral infarction) Status: Resolved Resolution Date/Time: 12/18/20 @ 10:54 (6) Tooth ache Status: Acute (7) Hyperlipemia Status: Chronic Assessment & Plan: Not at goal Clinical Quality Measures AMI/AHF: ASA po Prior to arrival: Yes (324MG PO VIA EMS EN ROUTE) COMPA GORDON MD December 18, 2020 10:45
[2020-12-18 11:45] VITALS: BP 168/107
[2020-12-18 16:00] VITALS: BP 154/80
[2020-12-18] MEDS ORDERED: REGADENOSON 0.4 MG/5 ML SYR (LEXISCAN) IV ONE (16:00)
[2020-12-18] MEDS: CLOPIDOGREL 75 MG (PLAVIX) TABLET PO SCH (17:38)
[2020-12-18] MEDS: ISOSORBIDE MONONITRATE 60 MG (IMDUR) TAB PO SCH (17:38)
[2020-12-18] MEDS: MONTELUKAST 10 MG (SINGULAIR) TAB PO SCH (17:38)
[2020-12-18] MEDS: RIVAROXABAN 20 MG TABLET (XARELTO) PO SCH (17:39)
[2020-12-18] MEDS: PANTOPRAZOLE 40 MG (PROTONIX) TAB PO SCH (17:39)
[2020-12-18] MEDS: VENlafaxine XR 75 MG (EFFEXOR XR) CAP PO SCH (17:39)
[2020-12-18 20:27] VITALS: BP 153/70
[2020-12-18] MEDS: traZODone 100 MG (DESYREL) TAB PO SCH (20:39)
--- NOTE | 2020-12-18 22:33 | Cardiology Progress Note ---
Cardiology SOAP Progress Note Subjective: mild chest discomfort Objective: I&O/Vital Signs 12/18/20 12/18/20 12/18/20 12/18/20 11:45 12:32 16:00 18:44 Temp 35.5 35.9 Pulse 78 82 79 Resp 18 17 B/P (MAP) 168/107 (127) 154/80 (104) Pulse Ox 100 97 98 O2 Delivery Nasal Cannula Nasal Cannula Nasal Cannula O2 Flow Rate 1.00 1.00 1.00 12/18/20 12/18/20 12/18/20 19:00 20:27 20:40 Temp 36.4 Pulse 88 88 Resp 18 B/P (MAP) 153/70 (97) Pulse Ox 97 O2 Delivery Nasal Cannula Room Air O2 Flow Rate 1.00 12/18/20 00:00 Intake Total 2880 ml Output Total 3375 ml Balance -495 ml Weight (Pounds): 277 Weight (Ounces): 0.0 Weight (Calculated Kilograms): [id number] Constitutional: appears stated age; No apparent distress; well-developed, well- nourished Respiratory: chest is bilaterally symmetric, lungs clear to auscultation Cardiovascular: regular rate-rhythm, S1 and S2 Gastrointestional: soft, audible bowel sounds; No spleenomegaly Extremities: No clubbing, No cyanosis; no lower extremity edema bilateral; No significant edema Neurologic/Psychiatric: no motor/sensory deficits, alert, normal mood/affect, oriented x 3, power is 5/5 both on sides Skin: normal color; No rash, No ulcerations Results/Procedures: Labs Laboratory Tests 12/18/20 02:36: White Blood Count 9.0, Red Blood Count 4.14L, Hemoglobin 11.1L, Hematocrit 34L, Mean Corpuscular Volume 82, Mean Corpuscular Hemoglobin 27, Mean Corpuscular Hemoglobin Concent 33, Red Cell Distribution Width 14.0, Platelet Count 230, Mean Platelet Volume 9.8, Immature Granulocyte % (Auto) 0, Neutrophils (%) (Auto) 52, Lymphocytes (%) (Auto) 39, Monocytes (%) (Auto) 6, Eosinophils (%) (Auto) 3, Basophils (%) (Auto) 0, Neutrophils # (Auto) 4.7, Lymphocytes # (Auto) 3.5, Monocytes # (Auto) 0.5, Eosinophils # (Auto) 0.3, Basophils # (Auto) 0.0, Immature Granulocyte # (Auto) 0.0, Sodium Level 141, Potassium Level 4.3, Chloride Level 106, Carbon Dioxide Level 27, Anion Gap 8, Blood Urea Nitrogen 8, Creatinine 0.82, Estimat Glomerular Filtration Rate > 60, BUN/Creatinine Ratio 10, Glucose Level 107H, Calcium Level 8.2L, Phosphorus Level 5.1H, Magnesium Level 1.8, Triglycerides Level 249H, Cholesterol Level 236H, LDL Cholesterol Direct 174H, VLDL Cholesterol 50H, HDL Cholesterol 27L 12/18/20 15:38: Glucometer 192H 12/18/20 19:20: Glucometer 145H Microbiology 12/17/20 MRSA Screen - Final, Complete MRSA not isolated A/P: Assessment/Dx: Chest pain in a patient with CAD, Dizziness Plan: Possible unstable angina, serial troponin negative. Negative EKG. Echocardiogram shows mild to moderate LV dysfunction. Continue dual antiplatelet therapy. Recommend nuclear stress test tomorrow. dizziness likely to HTN meds resulting in hypotension. ischemic cardiomyopathy Thank you for your consultation. Please call me if you have any questions. Alla Shanks MD, FACP, FACC, FSCAI, FHRS, CCDS Interventional Cardiology Cardiac Electrophysiology Vascular Medicine and Endovascular Interventions Clinical Quality Measures AMI/AHF: ASA po Prior to arrival: Yes (324MG PO VIA EMS EN ROUTE) Marcia SHANKS MD December 18, 2020 22:33
[2020-12-18 23:08] VITALS: BP 170/87
[2020-12-19] VITALS (19 sets, daily range): BP systolic 126–165; BP diastolic 74–99
[2020-12-19 05:14] LABS: BASOPHILS % (AUTO) 1 % (0-10); EOSINOPHILS # (AUTO) 0.2 10^3/uL (0.0-0.3); EOSINOPHILS % (AUTO) 3 % (0-10); HEMATOCRIT 34 % (40-54); HEMOGLOBIN 11.2 g/dL (13.3-17.7); LYMPHOCYTES # (AUTO) 3.2 10^3/uL (1.0-4.0); LYMPHOCYTES % (AUTO) 38 % (12-44); MEAN CORPUSCULAR HEMOGLOBIN 27 pg (25-34); MEAN CORPUSCULAR HGB CONC 33 g/dL (32-36); MEAN CORPUSCULAR VOLUME 80 fL (80-99); MEAN PLATELET VOLUME 9.8 fL (9.0-12.2); MONOCYTES # (AUTO) 0.4 10^3/uL (0.0-1.0); MONOCYTES % (AUTO) 5 % (0-12); NEUTROPHILS # (AUTO) 4.6 10^3/uL (1.8-7.8); NEUTROPHILS % (AUTO) 54 % (42-75); PLATELET COUNT 216 10^3/uL (130-400); WHITE BLOOD COUNT 8.5 10^3/uL (4.3-11.0)
[2020-12-19 05:26] LABS: CHLORIDE 102 MMOL/L (98-107); POTASSIUM 4.2 MMOL/L (3.6-5.0); SODIUM 138 MMOL/L (135-145)
[2020-12-19 05:28] LABS: CALCIUM 8.8 MG/DL (8.5-10.1); GLUCOSE 114 MG/DL (70-105)
[2020-12-19 05:30] LABS: CARBON DIOXIDE 25 MMOL/L (21-32)
[2020-12-19 05:32] LABS: GFR ESTIMATED > 60; PHOSPHORUS 4.4 MG/DL (2.3-4.7)
[2020-12-19 05:33] LABS: BUN/CREATININE RATIO 10
[2020-12-19 05:34] LABS: MAGNESIUM 1.8 MG/DL (1.6-2.4)
[2020-12-19] MEDS: inSUlin ASPART (NovoLOG) 1 UNIT/0.01 ML (CHARGE PER UNIT) SQ SCH ×4 (05:51→20:23)
[2020-12-19] MEDS: FLUTICASONE/VILANTEROL 200 MCG 14'S (BREO) IH SCH (07:23)
[2020-12-19] MEDS: RANOLAZINE ER 500 MG TAB (RANEXA) PO SCH ×2 (08:22→20:23)
[2020-12-19] MEDS: busPIRone 10 MG (BUSPAR) TAB PO SCH ×3 (08:22→20:23)
[2020-12-19] MEDS: ASPIRIN E.C. 81 MG (ECOTRIN) TAB PO SCH (08:22)
[2020-12-19] MEDS: eZETimibe 10 MG (ZETIA) TABLET PO SCH (08:22)
[2020-12-19] MEDS ORDERED: CATHETER FLUSH 10 ML SYR IV PRN (10:00)
--- NOTE | 2020-12-19 10:25 | Progress Note - Hospitalist ---
Subjective HPI/CC On Admission Date Seen by Provider: December 19, 2020 Time Seen by Provider: 09:40 This is an unfortunate 50-year-old white male with coronary artery disease. He presents to the emergency room with complaints of chest pain that is classic for his angina. He had just gotten up to walk to the kitchen to get something to drink. This morning he continues to complain of chest pain however he keeps falling asleep during our conversation. His blood pressure was quite low in the emergency room and he did not take nitro nor is it been given to him. Medicatio ns have been held because of his soft blood pressure. It is improving now. Opponent is negative EKG shows anterior ST segment changes no old one was available for comparison Subjective/Events-last exam Pt reports less chest pain Undergoing stress test today and likely cardiac catheterization with stent placement Has already had a bypass at 40 years old Pt appears to have in-stage heart disease Review of Systems Cardiovascular: Chest Pain Objective Exam Vital Signs Vital Signs Date Time Temp Pulse Resp B/P (MAP) Pulse Ox O2 Delivery O2 Flow Rate FiO2 12/20/20 04:17 35.9 85 20 143/82 (102) 94 Room Air 12/18/20 20:27 1.00 Capillary Refill : Less Than 3 Seconds General Appearance: No Apparent Distress, WD/WN, Chronically ill Respiratory: Lungs Clear Cardiovascular: Regular Rate, Rhythm Neurologic/Psychiatric: Alert, Oriented x3 Results/Procedures Lab Patient resulted labs reviewed. Imaging: Reviewed Imaging Report Assessment/Plan Assessment and Plan Assess & Plan/Chief Complaint Assessment: Chest pain h/o CAD Previous CABG at 40yo HTN HLP Plan: EST Cath Clinical Quality Measures AMI/AHF: ASA po Prior to arrival: Yes (324MG PO VIA EMS EN ROUTE) ANGIE RONDON DO December 19, 2020 10:25
--- NOTE | 2020-12-19 10:42 | Cardiology Progress Note ---
Subjective Date Seen by Provider: December 19, 2020 Time Seen by Provider: 10:38 Subjective/Events-last exam Patient was seen at bedside, laying down comfortably, feeling better but still having mild chest pain Review of Systems General: No Chills, No Night Sweats, No Fatigue, No Malaise, No Appetite, No Other HEENT: No Head Aches, No Visual Changes, No Eye Pain, No Ear Pain, No Dysphasia, No Sinus Congestion, No Post Nasal Drip, No Sore Throat, No Other Pulmonary: No Dyspnea, No Cough, No Pleuritic Chest Pain, No Other Cardiovascular: No: Chest Pain, Palpitations, Orthopnea, Paroxysmal Noc. Dyspnea, Edema, Lt Headedness, Other Objective-Cardiology Exam Last Set of Vital Signs Vital Signs 12/18/20 12/19/20 20:27 07:45 Temp 36.1 Pulse 90 Resp 17 B/P (MAP) 152/93 (112) Pulse Ox 95 O2 Delivery Room Air O2 Flow Rate 1.00 Capillary Refill : Less Than 3 Seconds I&O Intake and Output 12/19/20 00:00 Intake Total 4220 ml Output Total 2200 ml Balance 2020 ml Intake Oral 2020 ml IV Total 2200 ml Output Urine Total 2200 ml # Voids 6 General: Alert, Oriented X3, Cooperative HEENT: Atraumatic, PERRLA Neck: Supple, No JVD, No Thyromegaly Lungs: Clear to Auscultation, Normal Air Movement Heart: Regular Rate, Normal S1, Normal S2, No Murmurs Abdomen: Normal Bowel Sounds, Soft, No Tenderness, No Hepatosplenomegaly, No Masses Extremities: No Clubbing, No Cyanosis, No Edema, Normal Pulses, No T enderness/Swelling Skin: No Rashes, No Breakdown, No Significant Lesion Neuro: Normal Gait, Normal Speech, Strength at 5/5 X4 Ext, Normal Tone, Sensation Intact Psych/Mental Status: Mental Status NL, Mood NL Results Lab Laboratory Tests 12/19/20 05:05 A/P-Cardiology Admission Diagnosis Chest pain Coronary artery disease Hypertension Hyperlipidemia Assessment/Plan Chest pain, unstable angina, recurrent episodes of chest pain, difficult to c ontrol due to the extensive coronary artery disease, inoperable obtuse marginal branches that were occluded, small vessel disease in the LAD. Medical therapy is recommended. Dizziness and lightheadedness, near syncope, no full syncopal episodes were reported. Extensive history of coronary artery disease multiple interventions and bypass in the past Cardiac catheterization was carried out in July 2020 patient has severe in- stent restenosis in the right PDA was successful balloon angioplasty with excellent results, had patent REYES to LAD, patent stent in the proximal LAD with borderline lesion in the stent, moderate disease in the circumflex artery nonobstructive disease with known occluded 2 vein grafts probably to the obtuse marginal and diagonal branches. Repeat cardiac catheterization was done on September 04, 2019 showed severe in- stent restenosis in the overlapping stent in the right PDA with balloon angioplasty using a noncompliant 2.5 x 20 mm balloon, patent stent in the p roximal circumflex artery followed by moderate stenosis, occluded LAD at the midportion with patent REYES to LAD small vessel disease distally, patient has known occluded 2 vein grafts. Planning to proceed with stress test today possible cardiac catheterization History of congestive heart failure, chronic compensated left ventricular diastolic dysfunction, ejection fraction 50-55 percent. Continue to monitor History of aortic valve stenosis, continue to monitor Hypertension, having episode of dizziness and near syncope, will try to keep his blood pressure between 140 and 150 Hyperlipidemia, poor control, probably noncompliant with medication Diabetes mellitus, followed and managed by primary care physician Carotid stenosis mild nonobstructive disease. Continue to monitor Marijuana use Clinical Quality Measures AMI/AHF: ASA po Prior to arrival: Yes (324MG PO VIA EMS EN ROUTE) JAMEEL PIMENTEL MD December 19, 2020 10:42 am
[2020-12-19] MEDS ORDERED: REGADENOSON 0.4 MG/5 ML SYR (LEXISCAN) IV ONE (10:55)
[2020-12-19] MEDS ORDERED: meTOprolol 5 MG/5 ML (LOPRESSOR) VIAL ONE (11:08)
[2020-12-19] MEDS ORDERED: NITROGLYCERIN 0.4 MG SL TABS BTL 25'S SL ONE (11:15)
[2020-12-19] MEDS ORDERED: meTOprolol 5 MG/5 ML (LOPRESSOR) VIAL IV ONE (11:15)
[2020-12-19] MEDS: morphine INJ 4 MG/ML 1 ML (VIAL/SYRINGE) IVP PRN ×4 (12:24→22:52)
[2020-12-19] MEDS ORDERED: NITROGLYCERIN 0.4 MG SL TABS BTL 25'S SL PRN (12:45)
[2020-12-19] MEDS ORDERED: BACL20TA PO (13:25)
[2020-12-19] MEDS ORDERED: ASPI-1238 PO (13:25)
[2020-12-19] MEDS ORDERED: VORT20TA PO (13:25)
[2020-12-19] MEDS ORDERED: LIDOCAINE 1% INJ 20 ML 20 ML VIAL ONE (13:55)
[2020-12-19] MEDS ORDERED: NS IV 1000 ML 1,000 ML ONE (13:55)
[2020-12-19] MEDS ORDERED: HEParin (CATH LAB) 2,000 ML IV ONE (13:55)
[2020-12-19] MEDS: NS IV 1000 ML 1,000 ML IV SCH ×2 (14:37→17:23)
--- NOTE | 2020-12-19 16:22 | Conscious Sedation/ASA ---
Conscious Sedation Pre-Proced Time 13:00 ASA Score 3 For ASA 3 and 4: Consider anesthesia and medical clearance. Also, for patients with a history of failed moderate sedation consider anesthesia. Airway Lungs Heart ASA score ASA 1: a normal healthy patient ASA 2: a patient with a mild systemic disease (mid diabetes, controlled hypertension, obesity x ASA 3: a patient with a severe systemic disease that limits activity (angina, COPD, prior Myocardial infarction) ASA 4: a patient with an incapacitating disease that is a constant threat to life (CHF, renal failure) ASA 5: a moribund patient not expected to survive 24 hrs. (ruptured aneurysm) ASA 6: a declared brain- patient whose organs are being harvested. For emergent operations, add the letter E after the classification Mallampati Classification Grade 3 Sedation Plan Analgesia, Amnesia, Plan communicated to team members, Discussed options with patient/fam, Discussed risks with patient/fam The patient is an appropriate candidate to undergo the planned procedure, sedation, and anesthesia. The patient immediately re-assessed prior to indication. JAMEEL PIMENTEL MD December 19, 2020 4:22 pm
--- NOTE | 2020-12-19 16:23 | Cardiology Stress Test Report ---
Stress Test Report Date of Procedure/Referring: Date of Procedure: December 19, 2020 PCP Norma Nash DO Admitting Physician Marta Lauren MD Indications: CP Baseline Heart Rate: 86 Baseline Blood Pressure: Blood Pressure Systolic: 158 Blood Pressure Diastolic: 87 Baseline Vitals Vital Signs Date Time Temp Pulse Resp B/P (MAP) Pulse Ox O2 Delivery O2 Flow Rate FiO2 12/17/20 04:31 36.1 76 16 88/56 (67) Room Air 12/17/20 04:51 95 2.00 Baseline EKG: Baseline EKG: NSR Summary After explaining the procedure to the patient, he signed a consent and then brought to the stress nuclear laboratory. Patient received 0.4 mg Lexiscan for stress test, ECG, heart rate and blood pressure were monitored continuously. Resting and stress dose of radio tracer were injected, imaging was acquired and reviewed in short axis, horizontal long axis and vertical long axis views. TID: 1.26 SSS: 19 SDS: 6 EF: 31 1. Patient tolerated Lexiscan well 2. Diaphragmatic attenuation with reversible ischemia involving the whole inferior wall inferolateral wall and anterolateral wall 3. Transient ischemic dilatation of 1.26 4. Normal left ventricular size, diffuse hypokinesia EF 31% JAMEEL PIMENTEL MD December 19, 2020 4:23 pm
--- NOTE | 2020-12-19 16:29 | Cardiac Cath Report ---
Cardiac Cath Report Physician (s)/Quiller Tender (s) Physician JAMEEL PIMENTEL MD Pre-Procedure Diagnosis Pre-Procedure Diagnosis: chest pain, coronary artery disease Post-Procedure Note Procedure Start Date: December 19, 2020 Name of Procedure: Left heart catheterization REYES angiogram Vein graft angiogram PTCA to the right PDA Findings/Procedure Note PROCEDURE NOTE: 50 years old gentleman with extensive coronary artery disease multiple intervention in the past, has been having chest pain and syncope, had an abnormal stress test, scheduled for cardiac catheterization After explaining the procedure to the patient, all pros and cons were explained, all questions were answered. The patient signed the consent and then he was placed on the cardiac catheterization laboratory. Groin was prepped SL fashion local anesthesia was used. Sheath placed in the artery. Leodan right and left catheter were used to access the coronary system.Vein Graft evaluated. REYES evaluated. Pigtail was used to access the left ventricular cavity. Left ventriculogram was done Patient was noted to have severe in-stent restenosis in the right PDA, had an intervention done on it in August 2020. I gave him 6000 units of heparin, FIR guide was used and BMW wire was advanced into the distal right coronary artery I used trek 2.5 x 20 mm balloon did multiple inflation at a high pressure up to 17 gurjit which extended the balloon to 2.75 mm. Angiogram showed excellent results At the end of the procedure the sheath was removed. Closure device was deployed FINDINGS: Hemodynamics LV 142/25, end-diastolic pressure of 25 Aorta 146/96 mean of 103 ANATOMY: Left Main has moderate disease Left Anterior Descending is occluded at the midportion, patent REYES to LAD with small vessel disease distally Left Circumflex is very small proper circumflex artery with moderate stenosis, the obtuse marginal branch are occluded, there is then a stent in the obtuse marginal branch that is occluded. Both vein grafts were occluded Right Coronary Artery is dominant artery, severe in-stent restenosis in the right PDA, underwent high-pressure balloon with expansion of the stent to 2.75 mm with excellent results REYES to LAD is patent with small vessel disease distally Vein Graft evaluation showed 2 occluded vein grafts LV Gram was done showing diffuse left ventricular hypokinesia estimate ejection fraction 45% CONCLUSION: 1. Severe recurrent in-stent restenosis in the right PDA, I used 2.5 x 20 mm trek balloon expanded under 17 gurjit to 2.75 mm with excellent results. 2. Occluded obtuse marginal branches and vein graft to the obtuse marginal branches 3. Patent REYES to LAD with small vessel disease distally 4. Mild to moderate diffuse left ventricular hypokinesia EF 45% DISCUSSION AND RECOMMENDATION: Continue to maximize medical therapy Anesthesia Type: Conscious Sedation Estimated blood loss (mL): 30 ml Contrast Amount: 40 ml Total Radiation Dose: 1105 mGy Post-Procedure Diagnosis (1) Chest pain (2) Coronary artery disease Qualifiers: (3) Hypotension (4) Marijuana use (5) CVA (cerebral infarction) (6) Tooth ache (7) Hyperlipemia Assessment & Plan: Not at goal JAMEEL PIMENTEL MD December 19, 2020 4:29 pm
[2020-12-19] MEDS ORDERED: PATIENT MAY USE OWN MEDS, ALL PO SCH (16:30)
[2020-12-19] MEDS: CLOPIDOGREL 75 MG (PLAVIX) TABLET PO SCH (18:01)
[2020-12-19] MEDS: RIVAROXABAN 20 MG TABLET (XARELTO) PO SCH (18:01)
[2020-12-19] MEDS: ISOSORBIDE MONONITRATE 60 MG (IMDUR) TAB PO SCH (19:17)
[2020-12-19] MEDS: MONTELUKAST 10 MG (SINGULAIR) TAB PO SCH (19:17)
[2020-12-19] MEDS: PANTOPRAZOLE 40 MG (PROTONIX) TAB PO SCH (19:18)
[2020-12-19] MEDS: VENlafaxine XR 75 MG (EFFEXOR XR) CAP PO SCH (19:18)
[2020-12-19] MEDS: GABAPENTIN 300 MG (NEURONTIN) CAP PO PRN (19:42)
[2020-12-19] MEDS: traZODone 100 MG (DESYREL) TAB PO SCH (20:23)
[2020-12-19] MEDS ORDERED: polyethylene glycoL POWDER 17 GM (MIRALAX) PACK PO PRN (21:15)
[2020-12-19] MEDS ORDERED: SENNA W/DOCUSATE (SENOKOT S) TABLET PO PRN (21:15)
[2020-12-19] MEDS: DOCUSATE SODIUM 100 MG (COLACE) CAP PO SCH (22:07)
[2020-12-20] MEDS: morphine INJ 4 MG/ML 1 ML (VIAL/SYRINGE) IVP PRN (01:38)
[2020-12-20 04:17] VITALS: BP 143/82
[2020-12-20] MEDS: NS IV 1000 ML 1,000 ML IV SCH ×3 (04:21→08:26)
[2020-12-20 06:00] LABS: BASOPHILS % (AUTO) 0 % (0-10); EOSINOPHILS # (AUTO) 0.2 10^3/uL (0.0-0.3); EOSINOPHILS % (AUTO) 2 % (0-10); HEMATOCRIT 33 % (40-54); HEMOGLOBIN 11.5 g/dL (13.3-17.7); LYMPHOCYTES # (AUTO) 2.7 10^3/uL (1.0-4.0); LYMPHOCYTES % (AUTO) 30 % (12-44); MEAN CORPUSCULAR HEMOGLOBIN 28 pg (25-34); MEAN CORPUSCULAR HGB CONC 35 g/dL (32-36); MEAN CORPUSCULAR VOLUME 80 fL (80-99); MEAN PLATELET VOLUME 9.8 fL (9.0-12.2); MONOCYTES # (AUTO) 0.6 10^3/uL (0.0-1.0); MONOCYTES % (AUTO) 7 % (0-12); NEUTROPHILS # (AUTO) 5.4 10^3/uL (1.8-7.8); NEUTROPHILS % (AUTO) 61 % (42-75); PLATELET COUNT 235 10^3/uL (130-400); WHITE BLOOD COUNT 8.9 10^3/uL (4.3-11.0)
[2020-12-20 06:07] LABS: CHLORIDE 102 MMOL/L (98-107); POTASSIUM 4.2 MMOL/L (3.6-5.0); SODIUM 137 MMOL/L (135-145)
[2020-12-20 06:08] LABS: CALCIUM 8.9 MG/DL (8.5-10.1)
[2020-12-20 06:09] LABS: GLUCOSE 99 MG/DL (70-105)
[2020-12-20 06:10] LABS: CARBON DIOXIDE 25 MMOL/L (21-32)
[2020-12-20 06:12] LABS: PHOSPHORUS 4.8 MG/DL (2.3-4.7)
[2020-12-20 06:13] LABS: CREATININE SERUM 0.96 MG/DL (0.60-1.30); GFR ESTIMATED > 60
[2020-12-20 06:14] LABS: BUN/CREATININE RATIO 9
[2020-12-20] MEDS: inSUlin ASPART (NovoLOG) 1 UNIT/0.01 ML (CHARGE PER UNIT) SQ SCH (06:14)
[2020-12-20 06:15] LABS: MAGNESIUM 1.8 MG/DL (1.6-2.4)
[2020-12-20] MEDS: FLUTICASONE/VILANTEROL 200 MCG 14'S (BREO) IH SCH (07:09)
--- NOTE | 2020-12-20 07:48 | Cardiology Progress Note ---
Subjective Date Seen by Provider: December 20, 2020 Time Seen by Provider: 07:45 Subjective/Events-last exam Patient is laying down in bed, denied any chest pain, feeling better, groin is healing well Review of Systems General: No Chills, No Night Sweats, No Fatigue, No Malaise, No Appetite, No Other HEENT: No Head Aches, No Visual Changes, No Eye Pain, No Ear Pain, No D ysphasia, No Sinus Congestion, No Post Nasal Drip, No Sore Throat, No Other Pulmonary: No Dyspnea, No Cough, No Pleuritic Chest Pain, No Other Cardiovascular: No: Chest Pain, Palpitations, Orthopnea, Paroxysmal Noc. Dyspnea, Edema, Lt Headedness, Other Objective-Cardiology Exam Last Set of Vital Signs Vital Signs 12/18/20 12/20/20 12/20/20 12/20/20 20:27 04:17 07:11 07:46 Temp 35.9 Pulse 86 Resp 20 B/P (MAP) 143/82 (102) Pulse Ox 94 O2 Delivery Room Air O2 Flow Rate 1.00 Capillary Refill : Less Than 3 Seconds I&O Intake and Output 12/20/20 00:00 Intake Total 1820 ml Output Total 750 ml Balance 1070 ml Intake Oral 820 ml IV Total 1000 ml Output Urine Total 750 ml # Voids 6 General: Alert, Oriented X3, Cooperative HEENT: Atraumatic, PERRLA Neck: Supple, No JVD, No Thyromegaly Lungs: Clear to Auscultation, Normal Air Movement Heart: Regular Rate, Normal S1, Normal S2, No Murmurs Abdomen: Normal Bowel Sounds, Soft, No Tenderness, No Hepatosplenomegaly, No Masses Extremities: No Clubbing, No Cyanosis, No Edema, Normal Pulses, No Tenderness/Swelling Skin: No Rashes, No Breakdown, No Significant Lesion Neuro: Normal Gait, Normal Speech, Strength at 5/5 X4 Ext, Normal Tone, Sensation Intact Psych/Mental Status: Mental Status NL, Mood NL Results Lab Laboratory Tests 12/20/20 05:38 A/P-Cardiology Admission Diagnosis Chest pain Coronary artery disease Hypertension Hyperlipidemia Assessment/Plan Chest pain, unstable angina, recurrent episodes of chest pain, difficult to control due to the extensive coronary artery disease, inoperable obtuse marginal branches that were occluded, small vessel disease in the LAD. Restenosis in the right coronary artery, angioplasty was done again with excellent results, feeling better, no further episodes of chest pain Dizziness and lightheadedness, near syncope, no full syncopal episodes were reported. Extensive history of coronary artery disease multiple interventions and bypass in the past Cardiac catheterization was carried out in July 2020 patient has severe in- stent restenosis in the right PDA was successful balloon angioplasty with excellent results, had patent REYES to LAD, patent stent in the proximal LAD with borderline lesion in the stent, moderate disease in the circumflex artery nonobstructive disease with known occluded 2 vein grafts probably to the obtuse marginal and diagonal branches. Repeat cardiac catheterization was done on September 04, 2019 showed severe in- stent restenosis in the overlapping stent in the right PDA with balloon angioplasty using a noncompliant 2.5 x 20 mm balloon, patent stent in the proximal circumflex artery followed by moderate stenosis, occluded LAD at the midportion with patent REYES to LAD small vessel disease distally, patient has known occluded 2 vein grafts. Patient had an abnormal stress test, cardiac catheterization was carried out on December 19, 2020, findings: 1. Severe recurrent in-stent restenosis in the right PDA, I used 2.5 x 20 mm trek balloon expanded under 17 gurjit to 2.75 mm with excellent results. 2. Occluded obtuse marginal branches and vein graft to the obtuse marginal branches 3. Patent REYES to LAD with small vessel disease distally 4. Mild to moderate diffuse left ventricular hypokinesia EF 45% History of congestive heart failure, chronic compensated left ventricular diastolic dysfunction, ejection fraction 50-55 percent. On left ventriculogram ejection fraction was 45%, on the stress test a SPECT images showed ejection fraction 31%. Still in compensated heart failure, ischemic in nature. History of aortic valve stenosis, continue to monitor Hypertension, having episode of dizziness and near syncope, will try to keep his blood pressure between 140 and 150 Hyperlipidemia, poor control, maintained on Lipitor 80 mg daily, Vascepa and questionable Zetia. I will switch him to Repatha Diabetes mellitus, followed and managed by primary care physician Carotid stenosis mild nonobstructive disease. Continue to monitor Marijuana use Patient is ready for discharge Continue on aspirin, Plavix and Xarelto for 1 month then stop aspirin and continue Plavix and Xarelto Continue on Lipitor, Vascepa and Zetia, planning to switch to Repatha as an outpatient Hold Metformin for 48 hours Clinical Quality Measures AMI/AHF: ASA po Prior to arrival: Yes (324MG PO VIA EMS EN ROUTE) JAMEEL PIMENTEL MD December 20, 2020 07:48
[2020-12-20] MEDS ORDERED: METF-399 PO (07:51)
[2020-12-20] MEDS ORDERED: CLOP75TA28 PO (07:51)
[2020-12-20] MEDS ORDERED: EZET10TA49 PO (07:51)
--- NOTE | 2020-12-20 07:52 | Discharge Inst-Post CATH ---
Discharge Inst-CATH/EP Problems Reviewed?: Yes Post Cardiac Cath/EP D/C Inst Follow Up/Plan Appointment with Dr. Fitzgerald's office in 2 weeks <b>CARDIAC CATH/EP PROCEDURE DISCHARGE INSTRUCTIONS</b> ACTIVITY * Go Home directly and rest. * Limit activity of the leg (or wrist if it was used) for 7 days including aerobics, swimming, jogging, bicycling, etc. * Restrict stair-climbing for 7 days if possible, if not, climb up with your non-cath leg, then bring together on the same step. * Avoid lifting, pushing, pulling or excessive movement of the affected extremity for 7 days. * Customary sexual activity may be resumed after 2 days-use caution not to use a position that strains or causes pain to the affected extremity. * No driving for 24 hours. * NO SMOKING. * Avoid straining for bowel movements for 7 days. * Gentle walking on level ground is allowed. * Returning to work will depend on the type of procedure and the results. Your doctor will discuss this with you. CALL YOUR DOCTOR FOR ANY OF THE FOLLOWING: *If bleeding from the puncture site occurs- Apply gentle pressure to site with clean cloth and call your doctor or EMS. * If a knot or lump forms under the skin, increases in size, or causes pain. * If bruising appears to be worsening or moving further down your leg instead of disappearing. * Temperature above 101 F. CARE OF YOUR GROIN INCISION; * Bruising or purple discoloration of the skin near the puncture site is common. * You may shower only, no bathtub bathing for 5 days. Be careful to avoid slipping as your leg may feel stiff. * If a closure device was used on your femoral artery, please see the attached guide regarding care of the device and your leg. * Leave dressing on FOR 24 hours. CARE OF YOUR WRIST INCISION; * Bruising or purple discoloration of the skin near the puncture site is common. * You may shower. * DO NOT submerge wrist. * Leave dressing on FOR 24 hours. JAMEEL FITZGERALD MD December 20, 2020 07:52
[2020-12-20 08:00] VITALS: BP 178/89
[2020-12-20] MEDS: eZETimibe 10 MG (ZETIA) TABLET PO SCH (08:25)
[2020-12-20] MEDS: ASPIRIN E.C. 81 MG (ECOTRIN) TAB PO SCH (08:25)
[2020-12-20] MEDS: RANOLAZINE ER 500 MG TAB (RANEXA) PO SCH (08:26)
[2020-12-20] MEDS: busPIRone 10 MG (BUSPAR) TAB PO SCH (08:26)
[2020-12-20] MEDS: DOCUSATE SODIUM 100 MG (COLACE) CAP PO SCH (08:26)
[2020-12-20] MEDS ORDERED: CLOPIDOGREL 75 MG (PLAVIX) TABLET PO SCH (09:00)
[2020-12-20] MEDS ORDERED: ASPIRIN E.C. 81 MG (ECOTRIN) TAB PO SCH (09:00)
--- NOTE | 2020-12-20 09:32 | Discharge Summary ---
Discharge Summary Hospital Course Was the Problem List Reviewed?: Yes Problems/Dx: (1) Chest pain Status: Acute (2) Coronary artery disease Status: Chronic Qualifiers: (3) Hypotension Status: Resolved (4) Marijuana use Status: Chronic (5) CVA (cerebral infarction) Status: Resolved (6) Tooth ache Status: Acute (7) Hyperlipemia Status: Chronic Hospital Course Date of Admission: December 17, 2020 at 05:30 Admission Diagnosis : Family Physician/Provider: Marta Lauren MD Date of Discharge: 12/20/20 Discharge Diagnosis: Unstable angina, CAD Hospital Course: Hospital Course: Pt had a brief hospital course. He was admitted for unstable angina. Stress test was abnormal, underwent cardiac catheterization with intervention by Dr. Fitzgerald. Pt was ready for DC on appropriate medication by cardiology. Labs and Pending Lab Test: Laboratory Tests 12/19/20 12:15: Glucometer 154H 12/19/20 20:23: Glucometer 97 12/19/20 21:16: Glucometer 105 12/20/20 05:38: White Blood Count 8.9, Red Blood Count 4.18L, Hemoglobin 11.5L, Hematocrit 33L, Mean Corpuscular Volume 80, Mean Corpuscular Hemoglobin 28, Mean Corpuscular Hemoglobin Concent 35, Red Cell Distribution Width 13.7, Platelet Count 235, Mean Platelet Volume 9.8, Immature Granulocyte % (Auto) 0, Neutrophils (%) (Auto) 61, Lymphocytes (%) (Auto) 30, Monocytes (%) (Auto) 7, Eosinophils (%) (Auto) 2, Basophils (%) (Auto) 0, Neutrophils # (Auto) 5.4, Lymphocytes # (Auto) 2.7, Monocytes # (Auto) 0.6, Eosinophils # (Auto) 0.2, Basophils # (Auto) 0.0, Immature Granulocyte # (Auto) 0.0, Sodium Level 137, Potassium Level 4.2, Chloride Level 102, Carbon Dioxide Level 25, Anion Gap 10, Blood Urea Nitrogen 9, Creatinine 0.96, Estimat Glomerular Filtration Rate > 60, BUN/Creatinine Ratio 9, Glucose Level 99, Calcium Level 8.9, Phosphorus Level 4.8H, Magnesium Level 1.8 Microbiology 12/17/20 MRSA Screen - Final, Complete MRSA not isolated Home Meds Active Ezetimibe 10 Mg Tablet 10 Mg PO DAILY Clopidogrel (Clopidogrel Bisulfate) 75 Mg Tablet 75 Mg PO 1800 Metformin HCl 1,000 Mg Tablet 1,000 Mg PO BID WITH MEALS Hold Metformin for 48 hours Reported Trintellix (Vortioxetine Hydrobromide) 20 Mg Tablet 20 Mg PO 1800 Aspirin EC (Aspirin) 81 Mg Tablet.dr 81 Mg PO 1800 Baclofen 20 Mg Tablet 20 Mg PO TID PRN Tylenol Extra Strength (Acetaminophen) 500 Mg Tablet 1,000 Mg PO Q6H PRN Promethazine HCl 50 Mg Tablet 50 Mg PO Q6H PRN Metoprolol Succinate 50 Mg Tab.er.24h 50 Mg PO BID Atorvastatin Calcium 80 Mg Tablet 80 Mg PO 1800 Breo Ellipta 200-25 Mcg INH (Fluticasone/Vilanterol) 1 Each Blst.w.dev 1 Each IH DAILY Nitroglycerin 0.4 Mg Tab.subl 0.4 Mg SL UD PRN Lisinopril 5 Mg Tablet 5 Mg PO 1800 Neurontin (Gabapentin) 300 Mg Capsule 300 Mg PO TID PRN Ventolin Hfa (Albuterol Sulfate) 18 Gm Hfa.aer.ad 2 Puff INH Q6H PRN Trazodone HCl 100 Mg Tablet 100 Mg PO HS Isosorbide Mononitrate ER (Isosorbide Mononitrate) 60 Mg Tab 60 Mg PO 1800 Meclizine HCl 25 Mg Tablet 25 Mg PO QID PRN Vascepa (Icosapent Ethyl) 1 Gm Capsule 2 Gm PO BID TAKES 2 (1GM) CAPSULES Buspirone HCl 10 Mg Tablet 20 Mg PO BID TAKES 2 (10MG) TABLETS Ranexa (Ranolazine) 1,000 Mg Tab.er.12h 1,000 Mg PO 1800 Xarelto Tablet (Rivaroxaban) 20 Mg Tablet 20 Mg PO 1800 Assessment/Pt Instructions [facility] 1 week Discharge Planning: <30 minutes discharge planning Discharge Instructions Activity as Tolerated: Yes Discharge Physical Examination Vital Signs Vital Signs Date Time Temp Pulse Resp B/P (MAP) Pulse Ox O2 Delivery O2 Flow Rate FiO2 12/20/20 08:00 36.0 88 20 178/89 (118) 97 Room Air 12/18/20 20:27 1.00 General Appearance: No Apparent Distress, WD/WN, Chronically ill, Obese Allergies: Coded Allergies: prednisone (Verified Allergy, Intermediate, RASH, 04/23/15) hydrocodone (Verified Allergy, Unknown, 04/23/15) venom-honey bee (Verified Allergy, Unknown, 04/23/15) Discharge Summary Date of Admission December 17, 2020 at 05:30 Date of Discharge Discharge Date: December 20, 2020 Admission Diagnosis Chest pain rule out SC Coronary artery disease Obesity Diabetes type 2 Hyperlipidemia Obstructive sleep apnea noncompliant with CPAP Hypotension Plan to rule out myocardial infarction consult cardiology further evaluation based on cardiology recommendations Discharge Diagnosis Assessment: Chest pain h/o CAD Previous CABG at 40yo HTN HLP Plan: EST Cath (1) Chest pain Status: Acute (2) Coronary artery disease Status: Chronic Qualifiers: (3) Hypotension Status: Resolved (4) Marijuana use Status: Chronic (5) CVA (cerebral infarction) Status: Resolved (6) Tooth ache Status: Acute (7) Hyperlipemia Status: Chronic Assessment & Plan: Not at goal Clinical Quality Measures AMI/AHF: ASA po Prior to arrival: Yes (324MG PO VIA EMS EN ROUTE) ANGIE RONDON DO December 20, 2020 09:32
[2020-12-20 10:20] VITALS: BP 178/89
== END 2020-12-20 10:35 | disposition home or self-care (01) | DRG 251 ==
LOC: EDUNIT# 04:31 → ER 04:32 → ICU 05:30 → 4TH 12-18 11:43
PROVIDERS: ADMIT Internal Medicine; ATTEND Internal Medicine
PROC: 02703ZZ Dilation of Coronary Artery, One Artery, Percutaneous Approach (ICD-10-PCS; principal; 2020-12-19)
PROC: 4A023N7 Measurement of Cardiac Sampling and Pressure, Left Heart, Percutaneous Approach (ICD-10-PCS; 2020-12-19)
PROC: B2111ZZ Fluoroscopy of Multiple Coronary Arteries using Low Osmolar Contrast (ICD-10-PCS; 2020-12-19)
PROC: B2151ZZ Fluoroscopy of Left Heart using Low Osmolar Contrast (ICD-10-PCS; 2020-12-19)
PROC: B2181ZZ Fluoroscopy of Left Internal Mammary Bypass Graft using Low Osmolar Contrast (ICD-10-PCS; 2020-12-19)
PROC: B2131ZZ Fluoroscopy of Multiple Coronary Artery Bypass Grafts using Low Osmolar Contrast (ICD-10-PCS; 2020-12-19)
DX: T82.855A Stenosis of coronary artery stent, initial encounter (principal); I25.110 Atherosclerotic heart disease of native coronary artery with unstable angina pectoris; I25.720 Atherosclerosis of autologous artery coronary artery bypass graft(s) with unstable angina pectoris; I25.710 Atherosclerosis of autologous vein coronary artery bypass graft(s) with unstable angina pectoris; I50.32 Chronic diastolic (congestive) heart failure; I25.5 Ischemic cardiomyopathy; I11.0 Hypertensive heart disease with heart failure; E11.9 Type 2 diabetes mellitus without complications; J43.9 Emphysema, unspecified; I48.91 Unspecified atrial fibrillation; E78.5 Hyperlipidemia, unspecified; E78.00 Pure hypercholesterolemia, unspecified; K21.9 Gastro-esophageal reflux disease without esophagitis; F41.9 Anxiety disorder, unspecified; F32.9 Major depressive disorder, single episode, unspecified; I95.9 Hypotension, unspecified; E66.9 Obesity, unspecified; Z68.37 Body mass index [BMI] 37.0-37.9, adult; G47.33 Obstructive sleep apnea (adult) (pediatric); F12.90 Cannabis use, unspecified, uncomplicated; Z87.891 Personal history of nicotine dependence; H54.61 Unqualified visual loss, right eye, normal vision left eye; F42.9 Obsessive-compulsive disorder, unspecified; Q24.9 Congenital malformation of heart, unspecified; I25.2 Old myocardial infarction; Z86.73 Personal history of transient ischemic attack (TIA), and cerebral infarction without residual deficits; Z95.5 Presence of coronary angioplasty implant and graft; Z95.1 Presence of aortocoronary bypass graft; Z88.6 Allergy status to analgesic agent; Z88.8 Allergy status to other drugs, medicaments and biological substances; Z79.84 Long term (current) use of oral hypoglycemic drugs; Z79.82 Long term (current) use of aspirin
CPT/HCPCS: 36415; 71045; 78452; 80048; 80053; 80061; 80306; 81000; 82150; 82550; 82553; 82947; 83690; 83735; 83874; 83880; 84100; 84484; 85025; 85610; 85730; 87081; 93005; 93017; 93041; 93306; 93459; 94640; 94760

== ENCOUNTER 2021-02-03 10:54 | Observation (INO) | payer MEDICARE, MEDICAID ==
[~2021-02-03] VITALS: Ht 185 cm; Wt 127.8 kg
[~2021-02-03 10:54] MED LIST changes: +EZET10TA49 PO; -OMEP40CA27 PO; +OMEP40CA6 PO; +VORT20TA PO
[2021-02-03] MEDS ORDERED: ASPIRIN 81 MG CHEW (CHILDREN'S ASA) PO ONE (11:15)
[2021-02-03 11:23] LABS: BASOPHILS % (AUTO) 0 % (0-10); EOSINOPHILS # (AUTO) 0.2 10^3/uL (0.0-0.3); EOSINOPHILS % (AUTO) 2 % (0-10); HEMATOCRIT 36 % (40-54); HEMOGLOBIN 11.7 g/dL (13.3-17.7); LYMPHOCYTES # (AUTO) 2.5 10^3/uL (1.0-4.0); LYMPHOCYTES % (AUTO) 21 % (12-44); MEAN CORPUSCULAR HEMOGLOBIN 27 pg (25-34); MEAN CORPUSCULAR HGB CONC 33 g/dL (32-36); MEAN CORPUSCULAR VOLUME 84 fL (80-99); MEAN PLATELET VOLUME 9.1 fL (9.0-12.2); MONOCYTES # (AUTO) 0.6 10^3/uL (0.0-1.0); MONOCYTES % (AUTO) 5 % (0-12); NEUTROPHILS # (AUTO) 8.5 10^3/uL (1.8-7.8); NEUTROPHILS % (AUTO) 72 % (42-75); PLATELET COUNT 248 10^3/uL (130-400); WHITE BLOOD COUNT 11.9 10^3/uL (4.3-11.0)
[2021-02-03 11:38] LABS: ALBUMIN 3.9 GM/DL (3.2-4.5); CHLORIDE 101 MMOL/L (98-107); POTASSIUM 3.9 MMOL/L (3.6-5.0); SODIUM 136 MMOL/L (135-145)
[2021-02-03 11:39] LABS: CALCIUM 8.8 MG/DL (8.5-10.1)
[2021-02-03 11:40] LABS: GLUCOSE 181 MG/DL (70-105)
[2021-02-03 11:41] LABS: PROTHROMBIN TIME PATIENT 13.7 SEC (12.2-14.7)
[2021-02-03 11:42] LABS: BILIRUBIN,TOTAL 0.3 MG/DL (0.1-1.0); CARBON DIOXIDE 23 MMOL/L (21-32)
[2021-02-03 11:44] LABS: ALKALINE PHOSPHATASE 70 U/L (40-136); CREATININE SERUM 0.95 MG/DL (0.60-1.30); GFR ESTIMATED > 60
[2021-02-03 11:45] LABS: BUN/CREATININE RATIO 8
[2021-02-03 11:47] LABS: ALANINE AMINOTRANSFERASE 18 U/L (0-55); MAGNESIUM 1.7 MG/DL (1.6-2.4)
--- NOTE | 2021-02-03 11:51 | Diagnostic Imaging Report ---
Indication: Chest pain. Time of exam: 11:35 AM Correlation is made with prior chest 12/18/2020. Heart is enlarged but stable. There are changes of median sternotomy and CABG. Lungs are clear. No infiltrates are seen. There is no evidence of failure. No effusion or pneumothorax is detected. Impression: Stable cardiomegaly. No acute feature is detected. Dictated by: Dictated on workstation # [id number]
[2021-02-03] MEDS ORDERED: morphine INJ 10 MG/ML 1ML (SYR OR VIAL) IVP STA ×2 (12:30→14:38)
--- NOTE | 2021-02-03 12:43 | ED Chest Pain ---
General Chief Complaint: Chest Pain Stated Complaint: CP, DIZZINESS,N/V,SOB Nursing Triage Note: PT PRESENTS TO THE ED AMB. FROM HOME C/O CP THAT ONSET EARLIER THIS AM. 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 PT VERBALIZES MILD NAUSEA, SOB AND MID STERNAL CHEST PAIN. Source: patient, old records Exam Limitations: no limitations History of Present Illness Date Seen by Provider: Feb 03, 2021 Time Seen by Provider: 11:10 Initial Comments This 51-year-old gentleman with extensive coronary artery disease with history of bypass grafting, stents, and recent angioplasty presents to the emergency room with about 2 hours of chest pain in the left central chest. It feels similar to prior cardiac episodes. He took nitroglycerin x3 at home which improved his pain from 8/10 down to 4/10. Allergies and Home Medications Allergies Coded Allergies: prednisone (Verified Allergy, Intermediate, RASH, 04/23/15) hydrocodone (Verified Allergy, Unknown, 04/23/15) venom-honey bee (Verified Allergy, Unknown, 04/23/15) Home Medications Acetaminophen 500 Mg Tablet, 1,000 MG PO Q6H PRN for PAIN-MILD (1-4), (Reported) Last Action: Continued Albuterol Sulfate 18 Gm Hfa.aer.ad, 2 PUFF INH Q6H PRN for SHORTNESS OF BREATH, (Reported) Last Action: Continued Amoxicillin 500 Mg Capsule, 500 MG PO TID, (Reported) FILLED 01-28-2021 #21/7 DAY SUPPLY Last Action: Continued Aspirin 81 Mg Tablet.dr, 81 MG PO 1800, (Reported) Last Action: Continued Atorvastatin Calcium 40 Mg Tablet, 80 MG PO HS, (Reported) TAKES 2 (40MG) TABS Last Action: Continued Baclofen 20 Mg Tablet, 20 MG PO TID PRN for MUSCLE SPASMS, (Reported) Last Action: Converted Buspirone HCl 10 Mg Tablet, 20 MG PO TID, (Reported) TAKES 2 (10MG) TABLETS Last Action: Continued Clopidogrel Bisulfate 75 Mg Tablet, 75 MG PO DAILY, (Reported) Last Action: Continued Ezetimibe 10 Mg Tablet, 10 MG PO 1200, (Reported) Last Action: Continued Fluticasone/Vilanterol 1 Each Blst.w.dev, 1 EACH IH DAILY, (Reported) Last Action: Continued Gabapentin 300 Mg Capsule, 300 MG PO BID PRN for PAIN-BREAKTHROUGH, (Reported) Last Action: Continued Gabapentin 300 Mg Capsule, 300 MG PO HS, (Reported) Last Action: Continued Glyburide 5 Mg Tablet, 5 MG PO DAILY, (Reported) Last Action: Continued Icosapent Ethyl 1 Gm Capsule, 2 GM PO BID, (Reported) TAKES 2 (1GM) CAPSULES Last Action: Continued Isosorbide Mononitrate 60 Mg Tab, 60 MG PO DAILY, (Reported) Last Action: Continued Lisinopril 5 Mg Tablet, 5 MG PO DAILY, (Reported) Last Action: Continued Meclizine HCl 25 Mg Tablet, 25 MG PO QID PRN for VERTIGO/DIZZINESS, (Reported) Last Action: Continued Metformin HCl 1,000 Mg Tablet, 1,000 MG PO BID WITH MEALS, (Reported) Last Action: Held Metoprolol Succinate 50 Mg Tab.er.24h, 50 MG PO BID, (Reported) Last Action: Continued Montelukast Sodium 10 Mg Tablet, 10 MG PO HS, (Reported) Last Action: Continued Nitroglycerin 0.4 Mg Tab.subl, 0.4 MG SL UD PRN for CHEST PAIN, (Reported) Last Action: Continued Pantoprazole Sodium 40 Mg Tablet.dr, 40 MG PO HS, (Reported) Last Action: Continued Promethazine HCl 50 Mg Tablet, 50 MG PO Q6H PRN for NAUSEA/VOMITING-2ND LINE, (Reported) Last Action: Converted Ranolazine 1,000 Mg Tab.er.12h, 1,000 MG PO BID, (Reported) Last Action: Converted Rivaroxaban 20 Mg Tablet, 20 MG PO 1800, (Reported) Last Action: Continued Trazodone HCl 100 Mg Tablet, 100 MG PO HS, (Reported) Last Action: Continued Vortioxetine Hydrobromide 20 Mg Tablet, 20 MG PO 1800, (Reported) Last Action: Converted Patient Home Medication List Home Medication List Reviewed: Yes Review of Systems Review of Systems Constitutional: no symptoms reported EENTM: No Symptoms Reported Respiratory: See HPI Cardiovascular: See HPI Gastrointestinal: See HPI Genitourinary: No Symptoms Reported Musculoskeletal: no symptoms reported Skin: no symptoms reported Psychiatric/Neurological: No Symptoms Reported Endocrine: No Symptoms Reported Hematologic/Lymphatic: No Symptoms Reported Past Imojeuw-Ioyasp-Gzkntw Hx Patient Social History Tobacco Use?: No Substance use?: No Alcohol Use?: No Immunizations Up To Date Tetanus Booster (TDap): Unknown PED Vaccines UTD: No Seasonal Allergies Seasonal Allergies: Yes Past Medical History Surgeries: Yes Angioplasty, CABG, Coronary Stent Respiratory: Yes COPD, Emphysema Currently Using CPAP: Yes (doesnt use it ) Currently Using BIPAP: No Cardiac: Yes (5 VESSEL CABG AGE 39;MULTIPLE CATHS- 6-7 STENTS, MULTIPLE ANGIOPLASTIES;CHF) Atrial Fibrillation, Coronary Artery Disease, Heart Attack, High Cholesterol, Hypertension Neurological: Yes (CVA WITH SOME RESIDUAL PROBLEMS WITH BALANCE AND SHORT TERM MEMORY) Stroke, TIA Reproductive Disorders: No Sexually Transmitted Disease: No HIV/AIDS: No Genitourinary: No Gastrointestinal: Yes Gastroesophageal Reflux Musculoskeletal: Yes (SCIATICA) Chronic Back Pain, Spasms Endocrine: Yes (OBESITY) Diabetes, Non-Insulin dep HEENT: Yes Eye Injury, Double Vision Loss of Vision: Right Hearing Impairment: Denies Cancer: No Psychosocial: Yes (OCD; INTENTIONAL OVERDOSE/SUICIDE ATTEMPT 06/2017) Sleep Difficulties, Anxiety, Suicide Attempts, Depression Integumentary: No Blood Disorders: No Adverse Reaction/Blood Tranf: No Family Medical History Brain cancer 19 FATHER Congestive heart failure 19 MOTHER Coronary artery disease 19 FATHER Diabetes mellitus 19 MOTHER Heart attack 19 FATHER 19 MOTHER Hypertension 19 FATHER 19 MOTHER Lung cancer 19 FATHER Heart Disease, Cancer, Diabetes SOCIAL HISTORY: -ETOH--HEAVY USE BY HISTORY, NOW OCCASIONAL USE -DRUGS--COCAINE AND THC IN PAST, DENIES IV DRUG USE -SMOKED 1 1/2 PPD, QUIT 20 YEARS AGO PAST SURGICAL HISTORY: -ULNAR DECOMPRESSION -CYST REMOVAL -EGD/COLONOSCOPY/POLYPECTOMY -CABG 5 VESSEL AT AGE 39 -MULTIPLE CARDIAC CATHS, WITH 6-7 STENTS AND MULTIPLE ANGIOPLASTIES -CARDIAC CATH 07/06/20- BY DR. FITZGERALD CONCLUSION: 1. Severe in-stent restenosis at the overlapping stents of the right PDA, successful intervention using noncompliant balloon with high pressure 2.5 x 20 mm with multiple inflation with resolution of the restenosis completely 2. Patent stent in the proximal circumflex artery followed by moderate stenosis, it will be monitored. Known occluded obtuse marginal branches 3. Occluded LAD at the midportion, patent REYES to the LAD with small LAD tapering down after the anastomosis with diffuse disease, not amendable to intervention due to the size of the artery 4. Known to have occluded 2 vein grafts 4. Mildly elevated left ventricular end-diastolic pressure Physical Exam Vital Signs Vital Signs - First Documented Capillary Refill : Less Than 3 Seconds Height, Weight, BMI Height: 6'1.00" Weight: 277lbs. 0.0oz. 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 Norm as Tested Skin: Normal Color, Warm/Dry Procedures/Interventions Suture Size: 4-0 Progress/Results/Core Measures Results/Orders Lab Results Laboratory Tests Test 02/03/21 11:13 02/03/21 11:15 Range/Units White Blood Count 11.9 H 4.3-11.0 10^3/uL Red Blood Count 4.28 L 4.30-5.52 10^6/uL Hemoglobin 11.7 L 13.3-17.7 g/dL Hematocrit 36 L 40-54 % Mean Corpuscular Volume 84 80-99 fL Mean Corpuscular Hemoglobin 27 25-34 pg Mean Corpuscular Hemoglobin Concent 33 32-36 g/dL Red Cell Distribution Width 13.9 10.0-14.5 % Platelet Count 248 130-400 10^3/uL Mean Platelet Volume 9.1 9.0-12.2 fL Immature Granulocyte % (Auto) 0 % Neutrophils (%) (Auto) 72 42-75 % Lymphocytes (%) (Auto) 21 12-44 % Monocytes (%) (Auto) 5 0-12 % Eosinophils (%) (Auto) 2 0-10 % Basophils (%) (Auto) 0 0-10 % Neutrophils # (Auto) 8.5 H 1.8-7.8 10^3/uL Lymphocytes # (Auto) 2.5 1.0-4.0 10^3/uL Monocytes # (Auto) 0.6 0.0-1.0 10^3/uL Eosinophils # (Auto) 0.2 0.0-0.3 10^3/uL Basophils # (Auto) 0.0 0.0-0.1 10^3/uL Immature Granulocyte # (Auto) 0.0 0.0-0.1 10^3/uL Prothrombin Time 13.7 12.2-14.7 SEC INR Comment 1.0 0.8-1.4 Activated Partial Thromboplast Time 29 24-35 SEC Sodium Level 136 135-145 MMOL/L Potassium Level 3.9 3.6-5.0 MMOL/L Chloride Level 101 98-107 MMOL/L Carbon Dioxide Level 23 21-32 MMOL/L Anion Gap 12 5-14 MMOL/L Blood Urea Nitrogen 8 7-18 MG/DL Creatinine 0.95 0.60-1.30 MG/DL Estimat Glomerular Filtration Rate > 60 BUN/Creatinine Ratio 8 Glucose Level 181 H 70-105 MG/DL Calcium Level 8.8 8.5-10.1 MG/DL Corrected Calcium 8.9 8.5-10.1 MG/DL Magnesium Level 1.7 1.6-2.4 MG/DL Total Bilirubin 0.3 0.1-1.0 MG/DL Aspartate Amino Transf (AST/SGOT) 16 5-34 U/L Alanine Aminotransferase (ALT/SGPT) 18 0-55 U/L Alkaline Phosphatase 70 40-136 U/L Myoglobin 32.1 10.0-92.0 NG/ML Troponin I < 0.028 <0.028 NG/ML Total Protein 7.0 6.4-8.2 GM/DL Albumin 3.9 3.2-4.5 GM/DL B-Type Natriuretic Peptide 55.7 <100.0 PG/ML My Orders Orders - RAIN DELGADO MD Cbc With Automated Diff (02/03/21 11:13) Magnesium (02/03/21 11:13) Chest 1 View, Ap/Pa Only (02/03/21 11:13) Ekg Tracing (02/03/21 11:13) Comprehensive Metabolic Panel (02/03/21 11:13) Myoglobin Serum (02/03/21 11:13) Protime With Inr (02/03/21 11:13) Partial Thromboplastin Time (02/03/21 11:13) O2 (02/03/21 11:13) Monitor-Rhythm Ecg Trace Only (02/03/21 11:13) Lipid Panel (02/04/21 06:00) Ed Iv/Invasive Line Start (02/03/21 11:13) Troponin I (02/03/21 11:13) Aspirin Chewable Tablet (Baby Aspirin Ch (02/03/21 11:15) BNP (02/03/21 12:17) Morphine Injection (Morphine Injection (02/03/21 12:30) Clopidogrel Tablet (Plavix Tablet) (02/03/21 12:45) Rivaroxaban Tablet (Xarelto Tablet) (02/03/21 12:45) Medications Given in ED Current Medications Medications Dose Ordered Sig/Colette Route Start Time Stop Time Status Last Admin Dose Admin Aspirin 324 mg ONCE ONCE PO 02/03/21 11:15 02/03/21 11:16 DC 02/03/21 11:17 324 MG Clopidogrel Bisulfate 75 mg ONCE ONCE PO 02/03/21 12:45 02/03/21 12:46 DC 02/03/21 12:48 75 MG Rivaroxaban 10 mg ONCE ONCE PO 02/03/21 12:45 02/03/21 12:46 DC 02/03/21 13:10 10 MG Vital Signs/I&O 02/03/21 02/03/21 02/03/21 11:01 11:01 11:05 Temp 32.4 Pulse 91 Resp 18 B/P (MAP) 104/50 (68) Pulse Ox 98 98 O2 Delivery Room Air Room Air Room Air Blood Pressure Mean: 68 Progress Progress Note : Time: 12:53 Progress Note Patient was seen and examined shortly after arrival. Aspirin was administered. He has not yet taken Plavix or Xarelto today so these medications were also ordered. Morphine is being administered for pain. Blood pressure would not likely tolerate additional nitroglycerin doses. Case was reviewed with Dr. Fitzgerald. Due to this patient's extensive coronary artery disease and recent angioplasty, admission for observation with serial troponins was deemed most appropriate. Patient is agreeable to admission and requests full CODE STATUS. Initial ECG Impression Date: Feb 03, 2021 Initial ECG Impression Time: 11:06 Initial ECG Rate: 86 Initial ECG Rhythm: Normal Sinus Comment Sinus rhythm with no ST elevation or depression. LVH with secondary repolarization abnormality. No abnormal intervals. Diagnostic Imaging Diagonstic Imaging: Xray Plain Films/CT/US/NM/MRI: chest Comments NAME: OMAR CHATTERJEE [facility] REC#: [id number] PT STATUS: ADM Diego : 1970 PHYSICIAN: RAIN DELGADO MD ADMIT DATE: 02/03/21/[facility] Signed Date of Exam:02/03/21 CHEST 1 VIEW, AP/PA ONLY Indication: Chest pain. Time of exam: 11:35 AM Correlation is made with prior chest 12/18/2020. Heart is enlarged but stable. There are changes of median sternotomy and CABG. Lungs are clear. No infiltrates are seen. There is no evidence of failure. No effusion or pneumothorax is detected. Impression: Stable cardiomegaly. No acute feature is detected. Dictated by: Dictated on workstation # [id number] Dict: 02/03/21 1149 Trans: 02/03/21 1547 CVB [id number] Interpreted by: PRASHANTH TONG MD Electronically signed by: PRASHANTH TONG MD 02/03/21 1547 Departure Communication (Admissions) Time/Spoke to Admitting Phy: 12:40 Dr. Nash Time/Spoke to Consulting Phy: 12:35 Dr. Fitzgerald Impression Primary Impression: Chest pain Qualified Codes: R07.9 - Chest pain, unspecified Additional Impression: Coronary artery disease Qualified Codes: I25.10 - Atherosclerotic heart disease of [place] coronary artery without angina pectoris Disposition: ADMITTED INPATIENT Condition: Stable Admissions Decision to Admit Reason: Admit from ER (General) Decision to Admit/Date: Feb 03, 2021 Time/Decision to Admit Time: 12:35 Departure-Patient Inst. Referrals: JUNIOR XIE MD (PCP/Family) Primary Care Physician Copy Copies To 1: JUNIOR XIE MD, JOSHUA T MD Feb 03, 2021 12:43
[2021-02-03] MEDS ORDERED: CLOPIDOGREL 75 MG (PLAVIX) TABLET PO ONE (12:45)
[2021-02-03] MEDS ORDERED: RIVAROXABAN 10 MG TABLET (XARELTO) PO ONE (12:45)
--- NOTE | 2021-02-03 13:25 | Consultation-Cardiology ---
HPI-Cardiology Cardiology Consultation Date of Consultation 02/03/21 Date of Admission Time Seen by Provider: 13:20 Indication: Chest pain HPI 51 years old gentleman with extensive cardiac history, multiple intervention in the past, was working in his backyard when he started having severe chest pain, took some nitroglycerin without full relief, came into the emergency room, repo rtedly had persistent chest discomfort, some relieved with nitroglycerin and morphine, still having some discomfort. On my evaluation he was laying down in bed, feeling somewhat better. No shortness of breath. No syncope Home Medications & Allergies Allergies: Coded Allergies: prednisone (Verified Allergy, Intermediate, RASH, 04/23/15) hydrocodone (Verified Allergy, Unknown, 04/23/15) venom-honey bee (Verified Allergy, Unknown, 04/23/15) Home Medication List Reviewed: Yes LLN-Iquzrv-Mwqymv Hx Patient Social History Drug of Choice: HX MARIJUANA Former smoker/When Quit: Apr 07, 1999 Type Used: Cigarettes 2nd Hand Smoke Exposure: No Recent Hopitalizations: No Have you traveled recently?: No Alcohol Use?: No Immunizations Up To Date Tetanus Booster (TDap): Unknown Date of Pneumonia Vaccine: December 03, 2016 Date of Influenza Vaccine: May 19, 2020 Past Medical History Discussed below Family Medical History Significant Family History: Heart Disease, Cancer, Diabetes Family History: Brain cancer 19 FATHER Congestive heart failure 19 MOTHER Coronary artery disease 19 FATHER Diabetes mellitus 19 MOTHER Heart attack 19 FATHER 19 MOTHER Hypertension 19 FATHER 19 MOTHER Lung cancer 19 FATHER Review of Systems-General Review of Systems Constitutional: no symptoms reported, malaise EENTM: see HPI, no symptoms reported Respiratory: see HPI; No cough; dyspnea on exertion; No hemoptysis, No orthopnea, No phlegm, No short of breath, No stridor, No wheezing, No other Cardiovascular: see HPI, chest pain; No edema, No Hx of Intervention, No palpitations, No syncope, No vascular heart diseas, No other Gastrointestinal: no symptoms reported, see HPI Genitourinary: no symptoms reported, see HPI Musculoskeletal: no symptoms reported Skin: no symptoms reported Psychiatric/Neurological: No Symptoms Reported Reviewed Test Results Reviewed Test Results Lab Laboratory Tests Test 02/03/21 11:13 02/03/21 11:15 Range/Units White Blood Count 11.9 H 4.3-11.0 10^3/uL Red Blood Count 4.28 L 4.30-5.52 10^6/uL Hemoglobin 11.7 L 13.3-17.7 g/dL Hematocrit 36 L 40-54 % Mean Corpuscular Volume 84 80-99 fL Mean Corpuscular Hemoglobin 27 25-34 pg Mean Corpuscular Hemoglobin Concent 33 32-36 g/dL Red Cell Distribution Width 13.9 10.0-14.5 % Platelet Count 248 130-400 10^3/uL Mean Platelet Volume 9.1 9.0-12.2 fL Immature Granulocyte % (Auto) 0 % Neutrophils (%) (Auto) 72 42-75 % Lymphocytes (%) (Auto) 21 12-44 % Monocytes (%) (Auto) 5 0-12 % Eosinophils (%) (Auto) 2 0-10 % Basophils (%) (Auto) 0 0-10 % Neutrophils # (Auto) 8.5 H 1.8-7.8 10^3/uL Lymphocytes # (Auto) 2.5 1.0-4.0 10^3/uL Monocytes # (Auto) 0.6 0.0-1.0 10^3/uL Eosinophils # (Auto) 0.2 0.0-0.3 10^3/uL Basophils # (Auto) 0.0 0.0-0.1 10^3/uL Immature Granulocyte # (Auto) 0.0 0.0-0.1 10^3/uL Prothrombin Time 13.7 12.2-14.7 SEC INR Comment 1.0 0.8-1.4 Activated Partial Thromboplast Time 29 24-35 SEC Sodium Level 136 135-145 MMOL/L Potassium Level 3.9 3.6-5.0 MMOL/L Chloride Level 101 98-107 MMOL/L Carbon Dioxide Level 23 21-32 MMOL/L Anion Gap 12 5-14 MMOL/L Blood Urea Nitrogen 8 7-18 MG/DL Creatinine 0.95 0.60-1.30 MG/DL Estimat Glomerular Filtration Rate > 60 BUN/Creatinine Ratio 8 Glucose Level 181 H 70-105 MG/DL Calcium Level 8.8 8.5-10.1 MG/DL Corrected Calcium 8.9 8.5-10.1 MG/DL Magnesium Level 1.7 1.6-2.4 MG/DL Total Bilirubin 0.3 0.1-1.0 MG/DL Aspartate Amino Transf (AST/SGOT) 16 5-34 U/L Alanine Aminotransferase (ALT/SGPT) 18 0-55 U/L Alkaline Phosphatase 70 40-136 U/L Myoglobin 32.1 10.0-92.0 NG/ML Troponin I < 0.028 <0.028 NG/ML Total Protein 7.0 6.4-8.2 GM/DL Albumin 3.9 3.2-4.5 GM/DL Physical Exam Physical Exam Vital Signs Vital Signs - First Documented Capillary Refill : Less Than 3 Seconds Height, Weight, BMI Height: 6'1.00" Weight: 277lbs. 0.0oz. 125.144250ig; 38.00 BMI Method:Stated General Appearance: No Apparent Distress, WD/WN, Obese Eyes: Bilateral Eye Normal Inspection, Bilateral Eye PERRL, Bilateral Eye EOMI HEENT: Normal ENT Inspection Neck: Normal Inspection Respiratory: Chest Non Tender, Lungs Clear, Normal Breath Sounds, No Accessory Muscle Use, No Respiratory Distress Cardiovascular: Regular Rate, Rhythm, No Edema, No Murmur Gastrointestinal: Normal Bowel Sounds, Non Tender Back: Normal Inspection, No CVA Tenderness, No Vertebral Tenderness Extremity: Normal Inspection, Non Tender, No Calf Tenderness, No Pedal Edema Neurologic/Psychiatric: Alert, Oriented x3, No Motor/Sensory Deficits, Normal 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 Restenosis in the right coronary artery, angioplasty was done again recently and he was feeling better, having few episode more aggressive pain recently. Will monitor on telemetry and evaluate his progression Dizziness and lightheadedness, near syncope, no full syncopal episodes were reported. Extensive history of coronary artery disease multiple interventions and bypass in the past Cardiac catheterization was carried out in July 2020 patient has severe in- stent restenosis in the right PDA was successful balloon angioplasty with excellent results, had patent REYES to LAD, patent stent in the proximal LAD with borderline lesion in the stent, moderate disease in the circumflex artery nonobstructive disease with known occluded 2 vein grafts probably to the obtuse marginal and diagonal branches. Repeat cardiac catheterization was done on September 04, 2019 showed severe in- stent restenosis in the overlapping stent in the right PDA with balloon angioplasty using a noncompliant 2.5 x 20 mm balloon, patent stent in the proximal circumflex artery followed by moderate stenosis, occluded LAD at the midportion with patent REYES to LAD small vessel disease distally, patient has known occluded 2 vein grafts. Patient had an abnormal stress test, cardiac catheterization was carried out on December 19, 2020, had severe in-stent restenosis in the right PDA successful balloon angioplasty using 2.5 x 20 mm balloon expanded to 2.75 mm with good results, occluded obtuse marginal branch and vein graft to the obtuse marginal branch, patent REYES to LAD with small vessel disease. Ejection fraction was 45%. Has been doing well since the last procedure in December 2020. Return today with chest pain. History of congestive heart failure, chronic compensated left ventricular diastolic dysfunction, ejection fraction 50-55 percent. On left ventriculogram ejection fraction was 45%, on the stress test a SPECT images showed ejection fraction 31%. Still in compensated heart failure, ischemic in nature. History of aortic valve stenosis, continue to monitor Hypertension, having episode of dizziness and near syncope, will try to keep his blood pressure between 140 and 150 Hyperlipidemia, poor control, maintained on Lipitor 80 mg daily, Vascepa and questionable Zetia, patient was switched to Repatha in December 2020. Diabetes mellitus, followed and managed by primary care physician Carotid stenosis mild nonobstructive disease. Continue to monitor Marijuana use Clinical Quality Measures AMI/AHF: ASA po Prior to arrival: JAMEEL Anthony MD Feb 03, 2021 13:25
[2021-02-03 14:55] VITALS: BP 112/64
[2021-02-03] MEDS ORDERED: ONDANSETRON 4 MG/2 ML (SDV) Z0FRAN IVP PRN (15:30)
[2021-02-03] MEDS ORDERED: CATHETER FLUSH 10 ML SYR IV PRN (15:30)
[2021-02-03] MEDS ORDERED: MONT10TA32 PO (16:19)
[2021-02-03] MEDS ORDERED: METF-399 PO (16:19)
[2021-02-03] MEDS ORDERED: GLBR5T PO (16:19)
[2021-02-03] MEDS ORDERED: PANT40TA52 PO (16:19)
[2021-02-03] MEDS ORDERED: EZET10TA49 PO (16:19)
[2021-02-03] MEDS ORDERED: CLOP75TA28 PO (16:19)
[2021-02-03] MEDS ORDERED: GABA300C PO (16:19)
[2021-02-03] MEDS ORDERED: AMOX500C2 PO (16:19)
[2021-02-03] MEDS ORDERED: ATOR40TA70 PO (16:19)
[2021-02-03] MEDS: morphine INJ 4 MG/ML 1 ML (VIAL/SYRINGE) IV PRN ×3 (17:10→23:28)
--- NOTE | 2021-02-03 19:32 | History & Physical-Hospitalist ---
History of Present Illness HPI/Chief Complaint Chief complaint: Chest pain History present illness: This is a 51-year-old white male with a history of severe vascular disease with multiple cardiac interventions who presents with chest pain. He reports he has been doing well until recently and had just started cardiac rehab. He recently had intervention in November and has done very well since that time. Cardiology is appreciated. Source: patient Exam Limitations: no limitations Date Seen 02/03/21 Time Seen by a Provider: 18:00 Attending Physician Norma Nash Bethany N MD Referring Physician Date of Admission Feb 03, 2021 at 12:49 Home Medications & Allergies Home Medications Reviewed patient Home Medication Reconciliation performed by pharmacy medication reconciliations semiconductor processing technician and/or nursing. Patients Allergies have been reviewed. Allergies Allergies Coded Allergies prednisone (Verified Allergy, Intermediate, RASH, 04/23/15) hydrocodone (Verified Allergy, Unknown, 04/23/15) venom-honey bee (Verified Allergy, Unknown, 04/23/15) Past Odfkndv-Whrekx-Yhskvi Hx Patient Social History Marrital Status: single Employed/Student: unemployed Tobacco Use?: No Smoking Status: Former Smoker Use of E-Cig and/or Vaping dev: No Substance use?: No Alcohol Use?: Yes Alcohol type: Beer Alcohol Frequency: Once in a while Pt feels they are or have been: No Immunizations Up To Date Date of Influenza Vaccine: May 19, 2020 Tetanus Booster (TDap): Unknown Hepatitis A: No Hepatitis B: No PED Vaccines UTD: No Date of Pneumonia Vaccine: December 03, 2016 Seasonal Allergies Seasonal Allergies: Yes Current Status Advance Directives: No Communicates: Verbally Primary Language: Urdu Preferred Spoken Language: Urdu Is interpretation needed?: No Implanted or Applied Medical D: Stents Past Medical History Surgeries: Angioplasty, CABG, Coronary Stent COPD, Emphysema Currently Using CPAP: Yes (doesnt use it ) Currently Using BIPAP: No Atrial Fibrillation, Coronary Artery Disease, Heart Attack, High Cholesterol, Hypertension Stroke, TIA Sexually Transmitted Disease: No HIV/AIDS: No Gastroesophageal Reflux Chronic Back Pain, Spasms Diabetes, Non-Insulin dep Eye Injury, Double Vision Loss of Vision: Right Hearing Impairment: Denies Sleep Difficulties, Anxiety, Suicide Attempts, Depression Blood Disorders: No Adverse Reaction/Blood Tranf: No Coronary artery disease DM NARGIS Obesity Family Medical History Brain cancer 19 FATHER Congestive heart failure 19 MOTHER Coronary artery disease 19 FATHER Diabetes mellitus 19 MOTHER Heart attack 19 FATHER 19 MOTHER Hypertension 19 FATHER 19 MOTHER Lung cancer 19 FATHER Heart Disease, Cancer, Diabetes SOCIAL HISTORY: -ETOH--HEAVY USE BY HISTORY, NOW OCCASIONAL USE -DRUGS--COCAINE AND THC IN PAST, DENIES IV DRUG USE -SMOKED 1 1/2 PPD, QUIT 20 YEARS AGO PAST SURGICAL HISTORY: -ULNAR DECOMPRESSION -CYST REMOVAL -EGD/COLONOSCOPY/POLYPECTOMY -CABG 5 VESSEL AT AGE 39 -MULTIPLE CARDIAC CATHS, WITH 6-7 STENTS AND MULTIPLE ANGIOPLASTIES -CARDIAC CATH 07/06/20- BY DR. PIMENTEL CONCLUSION: 1. Severe in-stent restenosis at the overlapping stents of the right PDA, successful intervention using noncompliant balloon with high pressure 2.5 x 20 mm with multiple inflation with resolution of the restenosis completely 2. Patent stent in the proximal circumflex artery followed by moderate stenosis, it will be monitored. Known occluded obtuse marginal branches 3. Occluded LAD at the midportion, patent REYES to the LAD with small LAD tapering down after the anastomosis with diffuse disease, not amendable to intervention due to the size of the artery 4. Known to have occluded 2 vein grafts 4. Mildly elevated left ventricular end-diastolic pressure Review of Systems Constitutional: see HPI Cardiovascular: chest pain Physical Exam Physical Exam Vital Signs Vital Signs - First Documented Capillary Refill : Less Than 3 Seconds Height, Weight, BMI Height: 6'1.00" Weight: 277lbs. 0.0oz. [id number]; 38.50 BMI Method:Stated General Appearance: No Apparent Distress, Chronically ill, Obese Eyes: Right Eye Normal Inspection, Right Eye PERRL HEENT: PERRL/EOMI, Normal ENT Inspection, Pharynx Normal, Moist Mucous Membranes Neck: Full Range of Motion, Normal Inspection, Non Tender Respiratory: Chest Non Tender, Lungs Clear, Normal Breath Sounds, No Accessory Muscle Use, No Respiratory Distress Cardiovascular: Regular Rate, Rhythm, No Edema, No Gallop, No JVD, No Murmur, Normal Peripheral Pulses Gastrointestinal: Normal Bowel Sounds, No Organomegaly, No Pulsatile Mass, Non Tender, Soft Back: Normal Inspection, No CVA Tenderness, No Vertebral Tenderness Extremity: Normal Capillary Refill, Normal Inspection, Normal Range of Motion, Non Tender, No Calf Tenderness, No Pedal Edema Neurologic/Psychiatric: Alert, Oriented x3, No Motor/Sensory Deficits, Normal Mood/Affect Skin: Normal Color, Warm/Dry Lymphatic: No Adenopathy Results Results/Procedures Labs Laboratory Tests 02/03/21 11:13 02/04/21 06:25 Patient resulted labs reviewed. Assessment/Plan Admission Diagnosis Assessment: Chest pain Severe CAD previous bypass and interventions Diabetes Recent tooth abscess on amoxicillin Plan: Consult cardiology Monitor closely Home meds Admission Status: Observation Diagnosis/Problems Diagnosis/Problems (1) Chest pain Status: Acute Qualifiers: Chest pain type: unspecified Qualified Codes: R07.9 - Chest pain, unspecified (2) Coronary artery disease Status: Chronic Qualifiers: Coronary Disease-Associated Artery/Lesion type: unspecified vessel or lesion type [place] vs. transplanted heart: [place] heart Associated angina: angina presence unspecified Qualified Codes: I25.10 - Atherosclerotic heart disease of [place] coronary artery without angina pectoris (3) Tooth ache Status: Acute Clinical Quality Measures AMI/AHF: ASA po Prior to arrival: NORMA Miller DO Feb 03, 2021 19:32
[2021-02-03] MEDS ORDERED: ACETAMINOPHEN 500 MG TAB (TYLENOL) PO PRN (19:45)
[2021-02-03] MEDS ORDERED: PROMETHAZINE HCL 50 MG PO PRN (19:45)
[2021-02-03] MEDS ORDERED: GABAPENTIN 300 MG (NEURONTIN) CAP PO PRN (19:45)
[2021-02-03] MEDS ORDERED: RT-ALBUTEROL SULF 2.5 MG/3 ML PRE-MIX VIAL INH PRN (19:45)
[2021-02-03] MEDS ORDERED: NON-FORMULARY MEDICATION 1 EA EA (Baclofen 20 MG) PO PRN (19:45)
[2021-02-03] MEDS ORDERED: MECLIZINE 25 MG (ANTIVERT) TAB PO PRN (19:45)
[2021-02-03] MEDS ORDERED: NITROGLYCERIN 0.4 MG SL TABS BTL 25'S SL PRN (19:45)
[2021-02-03] MEDS ORDERED: BACLOFEN 10 MG (LIORESAL) TAB PO PRN (20:00)
[2021-02-03] MEDS ORDERED: PROMETHAZINE 25 MG (PHENERGAN) TAB PO PRN (20:00)
[2021-02-03] MEDS: inSUlin ASPART (NovoLOG) 1 UNIT/0.01 ML (CHARGE PER UNIT) SC SCH (20:16)
[2021-02-03] MEDS: AMOXICILLIN 500 MG (POLYMOX) CAP PO SCH (20:45)
[2021-02-03] MEDS: RANOLAZINE ER 500 MG TAB (RANEXA) PO SCH (20:47)
[2021-02-03] MEDS: meTOproloL SUCCINATE 50 MG (TOPROL XL) TAB PO SCH (20:49)
[2021-02-03] MEDS: busPIRone 10 MG (BUSPAR) TAB PO SCH (20:50)
[2021-02-03] MEDS: CATHETER FLUSH 10 ML SYR IV SCH (20:51)
[2021-02-03] MEDS ORDERED: ICOSAPENT ETHYL 1 GM PO SCH (21:00)
[2021-02-03] MEDS ORDERED: traZODone 100 MG (DESYREL) TAB PO SCH (21:00)
[2021-02-03] MEDS ORDERED: NON-FORMULARY MEDICATION 1 EA EA (Ranolazine (Ranexa) 1,000 MG) PO SCH (21:00)
[2021-02-03] MEDS ORDERED: GABAPENTIN 300 MG (NEURONTIN) CAP PO SCH (21:00)
[2021-02-03] MEDS ORDERED: OMEGA 3 (FISH OIL) 1000 MG CAP PO SCH (21:00)
[2021-02-03] MEDS ORDERED: PANTOPRAZOLE 40 MG (PROTONIX) TAB PO SCH (21:00)
[2021-02-03] MEDS ORDERED: MONTELUKAST 10 MG (SINGULAIR) TAB PO SCH (21:00)
[2021-02-04 04:52] LABS: TRIGLYCERIDES 309 MG/DL (<150); VLDL CHOLESTEROL 62 MG/DL (5-40)
[2021-02-04 04:57] LABS: CHOLESTEROL 209 MG/DL (< 200); HDL CHOLESTEROL 25 MG/DL (40-60)
[2021-02-04] MEDS: CATHETER FLUSH 10 ML SYR IV SCH (05:24)
[2021-02-04] MEDS: inSUlin ASPART (NovoLOG) 1 UNIT/0.01 ML (CHARGE PER UNIT) SC SCH (05:24)
[2021-02-04 06:52] LABS: BASOPHILS # (AUTO) 0.1 10^3/uL (0.0-0.1); BASOPHILS % (AUTO) 1 % (0-10); EOSINOPHILS # (AUTO) 0.2 10^3/uL (0.0-0.3); EOSINOPHILS % (AUTO) 2 % (0-10); HEMATOCRIT 36 % (40-54); HEMOGLOBIN 11.8 g/dL (13.3-17.7); LYMPHOCYTES # (AUTO) 3.3 10^3/uL (1.0-4.0); LYMPHOCYTES % (AUTO) 36 % (12-44); MEAN CORPUSCULAR HEMOGLOBIN 28 pg (25-34); MEAN CORPUSCULAR HGB CONC 33 g/dL (32-36); MEAN CORPUSCULAR VOLUME 85 fL (80-99); MEAN PLATELET VOLUME 9.6 fL (9.0-12.2); MONOCYTES # (AUTO) 0.6 10^3/uL (0.0-1.0); MONOCYTES % (AUTO) 6 % (0-12); NEUTROPHILS # (AUTO) 5.1 10^3/uL (1.8-7.8); NEUTROPHILS % (AUTO) 55 % (42-75); PLATELET COUNT 236 10^3/uL (130-400); WHITE BLOOD COUNT 9.3 10^3/uL (4.3-11.0)
[2021-02-04] MEDS ORDERED: glyBURIDE 5 MG (MICRONASE) TAB PO SCH (07:00)
[2021-02-04 07:02] LABS: ALBUMIN 3.9 GM/DL (3.2-4.5); CHLORIDE 102 MMOL/L (98-107); POTASSIUM 4.1 MMOL/L (3.6-5.0); SODIUM 140 MMOL/L (135-145)
[2021-02-04 07:04] LABS: GLUCOSE 110 MG/DL (70-105); TOTAL PROTEIN 7.1 GM/DL (6.4-8.2)
[2021-02-04 07:05] LABS: CARBON DIOXIDE 28 MMOL/L (21-32)
[2021-02-04 07:06] LABS: BILIRUBIN,TOTAL 0.5 MG/DL (0.1-1.0)
[2021-02-04 07:08] LABS: ALKALINE PHOSPHATASE 68 U/L (40-136); GFR ESTIMATED > 60
[2021-02-04 07:09] LABS: BUN/CREATININE RATIO 10
[2021-02-04 07:11] LABS: ALANINE AMINOTRANSFERASE 19 U/L (0-55)
[2021-02-04] MEDS ORDERED: OMEGA 3 (FISH OIL) 1000 MG CAP PO SCH (08:00)
[2021-02-04] MEDS ORDERED: RT--FLUTICASONE/SALMETEROL 232-14 (AIRDUO RespiCLICK) IH SCH (08:00)
[2021-02-04] MEDS: RANOLAZINE ER 500 MG TAB (RANEXA) PO SCH (08:45)
[2021-02-04] MEDS: busPIRone 10 MG (BUSPAR) TAB PO SCH (08:45)
[2021-02-04] MEDS: meTOproloL SUCCINATE 50 MG (TOPROL XL) TAB PO SCH (08:46)
[2021-02-04] MEDS: AMOXICILLIN 500 MG (POLYMOX) CAP PO SCH (08:58)
[2021-02-04] MEDS ORDERED: lisINopril 5 MG (PRINIVIL) TABLET PO SCH (09:00)
[2021-02-04] MEDS ORDERED: FLUTICASONE/VILANTEROL 200 MCG 14'S (BREO) IH SCH (09:00)
[2021-02-04] MEDS ORDERED: RIVAROXABAN 10 MG TABLET (XARELTO) PO SCH (09:00)
[2021-02-04] MEDS ORDERED: ISOSORBIDE MONONITRATE 60 MG (IMDUR) TAB PO SCH (09:00)
[2021-02-04] MEDS ORDERED: CLOPIDOGREL 75 MG (PLAVIX) TABLET PO SCH ×2 (09:00)
[2021-02-04] MEDS ORDERED: ASPIRIN E.C. 81 MG (ECOTRIN) TAB PO SCH ×2 (09:00→18:00)
--- NOTE | 2021-02-04 10:38 | Cardiology Progress Note ---
Subjective Date Seen by Provider: Feb 04, 2021 Time Seen by Provider: 10:37 Subjective/Events-last exam Patient was seen at bedside, laying down comfortably, reporting improvement in the chest pain, no further episodes were reported Review of Systems General: No Chills, No Night Sweats, No Fatigue, No Malaise, No Appetite, No Other HEENT: No Head Aches, No Visual Changes, No Eye Pain, No Ear Pain, No Dysphasia, No Sinus Congestion, No Post Nasal Drip, No Sore Throat, No Other Pulmonary: No Dyspnea, No Cough, No Pleuritic Chest Pain, No Other Cardiovascular: No: Chest Pain, Palpitations, Orthopnea, Paroxysmal Noc. Dysp elicia, Edema, Lt Headedness, Other Objective-Cardiology Exam Last Set of Vital Signs Vital Signs 02/04/21 08:30 Pulse Ox 95 O2 Delivery Room Air I&O Intake and Output 02/04/21 00:00 Intake Total 1200 ml Balance 1200 ml Intake Oral 1200 ml # Voids 3 Daily Weight Change No General: Alert, Oriented X3, Cooperative HEENT: Atraumatic, PERRLA Neck: Supple, No JVD, No Thyromegaly Lungs: Clear to Auscultation, Normal Air Movement Heart: Regular Rate, Normal S1, Normal S2, No Murmurs Abdomen: Normal Bowel Sounds, Soft, No Tenderness, No Hepatosplenomegaly, No Masses Extremities: No Clubbing, No Cyanosis, No Edema, Normal Pulses, No Tenderness/Swelling Skin: No Rashes, No Breakdown, No Significant Lesion Neuro: Normal Gait, Normal Speech, Strength at 5/5 X4 Ext, Normal Tone, Sensation Intact Psych/Mental Status: Mental Status NL, Mood NL Results Lab Laboratory Tests 02/03/21 11:13 02/04/21 06:25 A/P-Cardiology Admission Diagnosis Chest pain Coronary artery disease Hypertension Hyperlipidemia Assessment/Plan Chest pain, unstable angina, recurrent episodes of chest pain, difficult to control due to the extensive coronary artery disease, inoperable obtuse marginal branches that were occluded, small vessel disease in the LAD. Restenosis in the right coronary artery, angioplasty was done again recently and he was feeling better, having few episode more aggressive pain recently, EKG and cardiac enzymes were negative. I reassured the patient, will discharge home today Dizziness and lightheadedness, near syncope, no full syncopal episodes were reported. Extensive history of coronary artery disease multiple interventions and bypass in the past Cardiac catheterization was carried out in July 2020 patient has severe in- stent restenosis in the right PDA was successful balloon angioplasty with excellent results, had patent REYES to LAD, patent stent in the proximal LAD with borderline lesion in the stent, moderate disease in the circumflex artery nonobstructive disease with known occluded 2 vein grafts probably to the obtuse marginal and diagonal branches. Repeat cardiac catheterization was done on September 04, 2019 showed severe in- stent restenosis in the overlapping stent in the right PDA with balloon angioplasty using a noncompliant 2.5 x 20 mm balloon, patent stent in the proximal circumflex artery followed by moderate stenosis, occluded LAD at the midportion with patent REYES to LAD small vessel disease distally, patient has known occluded 2 vein grafts. Patient had an abnormal stress test, cardiac catheterization was carried out on December 19, 2020, had severe in-stent restenosis in the right PDA successful balloon angioplasty using 2.5 x 20 mm balloon expanded to 2.75 mm with good results, occluded obtuse marginal branch and vein graft to the obtuse marginal branch, patent REYES to LAD with small vessel disease. Ejection fraction was 45%. Has been doing well since the last procedure in December 2020. EKG and cardiac enzymes were negative. History of congestive heart failure, chronic compensated left ventricular diastolic dysfunction, ejection fraction 50-55 percent. On left ventriculogram ejection fraction was 45%, on the stress test a SPECT images showed ejection fraction 31%. Still in compensated heart failure, ischemic in nature. History of aortic valve stenosis, continue to monitor Hypertension, having episode of dizziness and near syncope, will try to keep his blood pressure between 140 and 150 Hyperlipidemia, poor control, maintained on Lipitor 80 mg daily, Vascepa and questionable Zetia, patient was switched to Repatha in December 2020. Diabetes mellitus, followed and managed by primary care physician Carotid stenosis mild nonobstructive disease. Continue to monitor Marijuana use JAMEEL PIMENTEL MD Feb 04, 2021 10:38
--- NOTE | 2021-02-04 10:59 | Discharge Summary ---
Discharge Summary Hospital Course Was the Problem List Reviewed?: Yes Problems/Dx: (1) Chest pain Status: Acute Qualifiers: Qualified Codes: R07.9 - Chest pain, unspecified (2) Coronary artery disease Status: Chronic Qualifiers: Qualified Codes: I25.10 - Atherosclerotic heart disease of [place] coronary artery without angina pectoris (3) Tooth ache Status: Acute Hospital Course Date of Admission: Feb 03, 2021 at 12:49 Admission Diagnosis : Family Physician/Provider: Marta Lauren MD Date of Discharge: 02/04/21 Discharge Diagnosis: Chest pain, known CAD previous CABG and interventions, diabetes Hospital Course: Patient has short hospital course he was admitted for chest pain observed no evidence of acute coronary syndrome and no need for cardiac catheterization so he was discharged in improved condition. Labs and Pending Lab Test: Laboratory Tests 02/03/21 11:13: White Blood Count 11.9H, Red Blood Count 4.28L, Hemoglobin 11.7L, Hematocrit 36L , Mean Corpuscular Volume 84, Mean Corpuscular Hemoglobin 27, Mean Corpuscular Hemoglobin Concent 33, Red Cell Distribution Width 13.9, Platelet Count 248, Mean Platelet Volume 9.1, Immature Granulocyte % (Auto) 0, Neutrophils (%) (Auto) 72, Lymphocytes (%) (Auto) 21, Monocytes (%) (Auto) 5, Eosinophils (%) (Auto) 2, Basophils (%) (Auto) 0, Neutrophils # (Auto) 8.5H, Lymphocytes # (Auto) 2.5, Monocytes # (Auto) 0.6, Eosinophils # (Auto) 0.2, Basophils # (Auto) 0.0, Immature Granulocyte # (Auto) 0.0, Prothrombin Time 13.7, INR Comment 1.0, Activated Partial Thromboplast Time 29, Sodium Level 136, Potassium Level 3.9, Chloride Level 101, Carbon Dioxide Level 23, Anion Gap 12, Blood Urea Nitrogen 8, Creatinine 0.95, Estimat Glomerular Filtration Rate > 60, BUN/Creatinine Ratio 8, Glucose Level 181H, Calcium Level 8.8, Corrected Calcium 8.9, Magnesium Level 1.7, Total Bilirubin 0.3, Aspartate Amino Transf (AST/SGOT) 16, Alanine Aminotransferase (ALT/SGPT) 18, Alkaline Phosphatase 70, Myoglobin 32.1, Troponin I < 0.028, Total Protein 7.0, Albumin 3.9 02/03/21 11:15: B-Type Natriuretic Peptide 55.7 02/03/21 17:50: Troponin I < 0.028 02/03/21 20:12: Glucometer 150H 02/04/21 04:05: Triglycerides Level 309H, Cholesterol Level 209H, LDL Cholesterol Direct 146H, VLDL Cholesterol 62H, HDL Cholesterol 25L 02/04/21 05:15: Glucometer 102 02/04/21 06:25: White Blood Count 9.3, Red Blood Count 4.19L, Hemoglobin 11.8L, Hematocrit 36L, Mean Corpuscular Volume 85, Mean Corpuscular Hemoglobin 28, Mean Corpuscular Hemoglobin Concent 33, Red Cell Distribution Width 13.8, Platelet Count 236, Mean Platelet Volume 9.6, Immature Granulocyte % (Auto) 0, Neutrophils (%) (Auto) 55, Lymphocytes (%) (Auto) 36, Monocytes (%) (Auto) 6, Eosinophils (%) (Auto) 2, Basophils (%) (Auto) 1, Neutrophils # (Auto) 5.1, Lymphocytes # (Auto) 3.3, Monocytes # (Auto) 0.6, Eosinophils # (Auto) 0.2, Basophils # (Auto) 0.1, Immature Granulocyte # (Auto) 0.0, Sodium Level 140, Potassium Level 4.1, Chloride Level 102, Carbon Dioxide Level 28, Anion Gap 10, Blood Urea Nitrogen 9, Creatinine 0.90, Estimat Glomerular Filtration Rate > 60, BUN/Creatinine Ratio 10, Glucose Level 110H, Calcium Level 9.0, Corrected Calcium 9.1, Total Bilirubin 0.5, Aspartate Amino Transf (AST/SGOT) 22, Alanine Aminotransferase (ALT/SGPT) 19, Alkaline Phosphatase 68, Troponin I < 0.028, Total Protein 7.1, Albumin 3.9 Home Meds Active Reported Glyburide 5 Mg Tablet 5 Mg PO DAILY Metformin HCl 1,000 Mg Tablet 1,000 Mg PO BID WITH MEALS Ezetimibe 10 Mg Tablet 10 Mg PO 1200 Pantoprazole Sodium 40 Mg Tablet.dr 40 Mg PO HS Clopidogrel (Clopidogrel Bisulfate) 75 Mg Tablet 75 Mg PO DAILY Montelukast Sodium 10 Mg Tablet 10 Mg PO HS Neurontin (Gabapentin) 300 Mg Capsule 300 Mg PO HS Amoxicillin 500 Mg Capsule 500 Mg PO TID FILLED 01-28-2021 #21/ DAY SUPPLY Atorvastatin Calcium 40 Mg Tablet 80 Mg PO HS TAKES 2 (40MG) TABS Trintellix (Vortioxetine Hydrobromide) 20 Mg Tablet 20 Mg PO 1800 Aspirin EC (Aspirin) 81 Mg Tablet.dr 81 Mg PO 1800 Baclofen 20 Mg Tablet 20 Mg PO TID PRN Tylenol Extra Strength (Acetaminophen) 500 Mg Tablet 1,000 Mg PO Q6H PRN Promethazine HCl 50 Mg Tablet 50 Mg PO Q6H PRN Metoprolol Succinate 50 Mg Tab.er.24h 50 Mg PO BID Breo Ellipta 200-25 Mcg INH (Fluticasone/Vilanterol) 1 Each Blst.w.dev 1 Each IH DAILY Nitroglycerin 0.4 Mg Tab.subl 0.4 Mg SL UD PRN Lisinopril 5 Mg Tablet 5 Mg PO DAILY Neurontin (Gabapentin) 300 Mg Capsule 300 Mg PO BID PRN Ventolin Hfa (Albuterol Sulfate) 18 Gm Hfa.aer.ad 2 Puff INH Q6H PRN Trazodone HCl 100 Mg Tablet 100 Mg PO HS Isosorbide Mononitrate ER (Isosorbide Mononitrate) 60 Mg Tab 60 Mg PO DAILY Meclizine HCl 25 Mg Tablet 25 Mg PO QID PRN Vascepa (Icosapent Ethyl) 1 Gm Capsule 2 Gm PO BID TAKES 2 (1GM) CAPSULES Buspirone HCl 10 Mg Tablet 20 Mg PO TID TAKES 2 (10MG) TABLETS Ranexa (Ranolazine) 1,000 Mg Tab.er.12h 1,000 Mg PO BID Xarelto Tablet (Rivaroxaban) 20 Mg Tablet 20 Mg PO 1800 Assessment/Pt Instructions Dr. Fitzgerald as scheduled Discharge Planning: <30 minutes discharge planning Discharge Physical Examination Vital Signs Vital Signs Date Time Temp Pulse Resp B/P (MAP) Pulse Ox O2 Delivery O2 Flow Rate FiO2 02/04/21 08:30 95 Room Air 02/04/21 08:00 36.6 65 16 111/80 (90) General Appearance: No Apparent Distress, WD/WN, Chronically ill, Obese Allergies: Coded Allergies: prednisone (Verified Allergy, Intermediate, RASH, 04/23/15) hydrocodone (Verified Allergy, Unknown, 04/23/15) venom-honey bee (Verified Allergy, Unknown, 9/19/15) Discharge Summary Date of Admission Feb 03, 2021 at 12:49 Date of Discharge Discharge Date: Feb 04, 2021 Admission Diagnosis Assessment: Chest pain Severe CAD previous bypass and interventions Diabetes Recent tooth abscess on amoxicillin Plan: Consult cardiology Monitor closely Home meds Discharge Diagnosis (1) Chest pain Status: Acute Qualifiers: Qualified Codes: R07.9 - Chest pain, unspecified (2) Coronary artery disease Status: Chronic Qualifiers: Qualified Codes: I25.10 - Atherosclerotic heart disease of [place] coronary artery without angina pectoris (3) Tooth ache Status: Acute Clinical Quality Measures AMI/AHF: ASA po Prior to arrival: ANGIE Miller DO Feb 04, 2021 10:59
[2021-02-04] MEDS ORDERED: eZETimibe 10 MG (ZETIA) TABLET PO SCH (12:00)
[2021-02-04] MEDS ORDERED: NON-FORMULARY MEDICATION 1 EA EA (Vortioxetine Hydrobromide (Trintellix) 20 MG) PO SCH (18:00)
[2021-02-04] MEDS ORDERED: RIVAROXABAN 20 MG TABLET (XARELTO) PO SCH (18:00)
== END 2021-02-04 10:58 | disposition home or self-care (01) ==
LOC: EDUNIT# 10:54 → ER 10:56 → CSD 12:49 → UNDOADMOB 12:49 → CSD 14:38 → UNDODISOB 02-04 11:25
PROVIDERS: ADMIT Internal Medicine; ATTEND Internal Medicine
DX: I25.110 Atherosclerotic heart disease of native coronary artery with unstable angina pectoris (principal); K08.89 Other specified disorders of teeth and supporting structures; E11.9 Type 2 diabetes mellitus without complications; I48.91 Unspecified atrial fibrillation; I11.0 Hypertensive heart disease with heart failure; I50.22 Chronic systolic (congestive) heart failure; I25.2 Old myocardial infarction; E78.00 Pure hypercholesterolemia, unspecified; K21.9 Gastro-esophageal reflux disease without esophagitis; G89.29 Other chronic pain; M54.9 Dorsalgia, unspecified; G47.33 Obstructive sleep apnea (adult) (pediatric); J43.9 Emphysema, unspecified; E66.9 Obesity, unspecified; I65.29 Occlusion and stenosis of unspecified carotid artery; F41.9 Anxiety disorder, unspecified; F32.9 Major depressive disorder, single episode, unspecified; Z95.1 Presence of aortocoronary bypass graft; Z79.82 Long term (current) use of aspirin; Z79.899 Other long term (current) drug therapy; Z79.01 Long term (current) use of anticoagulants; Z86.73 Personal history of transient ischemic attack (TIA), and cerebral infarction without residual deficits; Z80.8 Family history of malignant neoplasm of other organs or systems; Z80.1 Family history of malignant neoplasm of trachea, bronchus and lung
CPT/HCPCS: 71045; 80053 ×2; 80061; 82947 ×2; 83735; 83874; 83880; 84484 ×2; 85025 ×2; 85610; 85730; 93005 ×2; 93041; 94640; 99284; G0378; 36415

== ENCOUNTER 2021-03-04 16:34 | Emergency (ER) | payer MEDICARE, MEDICAID ==
[~2021-03-04] VITALS: Ht 185.5 cm; Wt 124.7 kg
[~2021-03-04 16:34] MED LIST changes: +AMOX500C2 PO; +ATOR40TA70 PO; +GLBR5T PO
--- NOTE | 2021-03-04 17:04 | ED General ---
General Chief Complaint: General Problems/Pain Stated Complaint: VOMITING/DEHYDRATION Source of Information: Patient Exam Limitations: No Limitations History of Present Illness Date Seen by Provider: Mar 04, 2021 Time Seen by Provider: 16:50 Initial Comments This is a 51-year-old male who presented to the ER per his primary care provider office for elevated creatinine. States that he has been having increasing episodes of vomiting over the past few days and is been unable to tolerate p.o. intake. His renal function had declined and his provider told him to increase his fluids and repeat the labs today, however he has been able to hydrate orally at home. His repeat labs showed a decrease in renal function and concerns for acute kidney injury. He has no physical complaints at this time. Notes that he has been having daily episodes of vomiting for the past year. Allergies and Home Medications Allergies Coded Allergies: prednisone (Verified Allergy, Intermediate, RASH, 04/23/15) hydrocodone (Verified Allergy, Unknown, 04/23/15) venom-honey bee (Verified Allergy, Unknown, 04/23/15) Home Medications Acetaminophen 500 Mg Tablet, 1,000 MG PO Q6H PRN for PAIN-MILD (1-4), (Reported) Albuterol Sulfate 18 Gm Hfa.aer.ad, 2 PUFF INH Q6H PRN for SHORTNESS OF BREATH, (Reported) Amoxicillin 500 Mg Capsule, 500 MG PO TID, (Reported) FILLED 01-28-2021 #21/7 DAY SUPPLY Aspirin 81 Mg Tablet.dr, 81 MG PO 1800, (Reported) Atorvastatin Calcium 40 Mg Tablet, 80 MG PO HS, (Reported) TAKES 2 (40MG) TABS Baclofen 20 Mg Tablet, 20 MG PO TID PRN for MUSCLE SPASMS, (Reported) Buspirone HCl 10 Mg Tablet, 20 MG PO TID, (Reported) TAKES 2 (10MG) TABLETS Clopidogrel Bisulfate 75 Mg Tablet, 75 MG PO DAILY, (Reported) Ezetimibe 10 Mg Tablet, 10 MG PO 1200, (Reported) Fluticasone/Vilanterol 1 Each Blst.w.dev, 1 EACH IH DAILY, (Reported) Gabapentin 300 Mg Capsule, 300 MG PO BID PRN for PAIN-BREAKTHROUGH, (Reported) Gabapentin 300 Mg Capsule, 300 MG PO HS, (Reported) Glyburide 5 Mg Tablet, 5 MG PO DAILY, (Reported) Icosapent Ethyl 1 Gm Capsule, 2 GM PO BID, (Reported) TAKES 2 (1GM) CAPSULES Isosorbide Mononitrate 60 Mg Tab, 60 MG PO DAILY, (Reported) Lisinopril 5 Mg Tablet, 5 MG PO DAILY, (Reported) Meclizine HCl 25 Mg Tablet, 25 MG PO QID PRN for VERTIGO/DIZZINESS, (Reported) Metformin HCl 1,000 Mg Tablet, 1,000 MG PO BID WITH MEALS, (Reported) Metoprolol Succinate 50 Mg Tab.er.24h, 50 MG PO BID, (Reported) Montelukast Sodium 10 Mg Tablet, 10 MG PO HS, (Reported) Nitroglycerin 0.4 Mg Tab.subl, 0.4 MG SL UD PRN for CHEST PAIN, (Reported) Pantoprazole Sodium 40 Mg Tablet.dr, 40 MG PO HS, (Reported) Promethazine HCl 50 Mg Tablet, 50 MG PO Q6H PRN for NAUSEA/VOMITING-2ND LINE, (Reported) Ranolazine 1,000 Mg Tab.er.12h, 1,000 MG PO BID, (Reported) Rivaroxaban 20 Mg Tablet, 20 MG PO 1800, (Reported) Trazodone HCl 100 Mg Tablet, 100 MG PO HS, (Reported) Vortioxetine Hydrobromide 20 Mg Tablet, 20 MG PO 1800, (Reported) Patient Home Medication List Home Medication List Reviewed: Yes Review of Systems Review of Systems Constitutional: no symptoms reported EENTM: no symptoms reported Respiratory: no symptoms reported Cardiovascular: no symptoms reported Gastrointestinal: no symptoms reported Genitourinary: no symptoms reported Musculoskeletal: no symptoms reported Skin: no symptoms reported Psychiatric/Neurological: No Symptoms Reported Hematologic/Lymphatic: No Symptoms Reported Immunological/Allergic: no symptoms reported Past Vayukvn-Zhhlms-Qimknl Hx Patient Social History Tobacco Use?: No Smoking Status: Former Smoker Substance use?: No Alcohol Use?: No Pt feels they are or have been: No Immunizations Up To Date Tetanus Booster (TDap): Unknown PED Vaccines UTD: No Seasonal Allergies Seasonal Allergies: Yes Past Medical History Surgeries: Yes Angioplasty, CABG, Coronary Stent Respiratory: Yes COPD, Emphysema Currently Using CPAP: Yes (doesnt use it ) Currently Using BIPAP: No Cardiac: Yes (5 VESSEL CABG AGE 39;MULTIPLE CATHS- 6-7 STENTS, MULTIPLE ANGIO PLASTIES;CHF) Atrial Fibrillation, Coronary Artery Disease, Heart Attack, High Cholesterol, Hypertension Neurological: Yes (CVA WITH SOME RESIDUAL PROBLEMS WITH BALANCE AND SHORT TERM MEMORY) Stroke, TIA Reproductive Disorders: No Sexually Transmitted Disease: No HIV/AIDS: No Genitourinary: No Gastrointestinal: Yes Gastroesophageal Reflux Musculoskeletal: Yes (SCIATICA) Chronic Back Pain, Spasms Endocrine: Yes (OBESITY) Diabetes, Non-Insulin dep HEENT: Yes Eye Injury, Double Vision Loss of Vision: Right Hearing Impairment: Denies Cancer: No Psychosocial: Yes (OCD; INTENTIONAL OVERDOSE/SUICIDE ATTEMPT 06/2017) Sleep Difficulties, Anxiety, Suicide Attempts, Depression Integumentary: No Blood Disorders: No Adverse Reaction/Blood Tranf: No Family Medical History Brain cancer 19 FATHER Congestive heart failure 19 MOTHER Coronary artery disease 19 FATHER Diabetes mellitus 19 MOTHER Heart attack 19 FATHER 19 MOTHER Hypertension 19 FATHER 19 MOTHER Lung cancer 19 FATHER Heart Disease, Cancer, Diabetes SOCIAL HISTORY: -ETOH--HEAVY USE BY HISTORY, NOW OCCASIONAL USE -DRUGS--COCAINE AND THC IN PAST, DENIES IV DRUG USE -SMOKED 1 1/2 PPD, QUIT 20 YEARS AGO PAST SURGICAL HISTORY: -ULNAR DECOMPRESSION -CYST REMOVAL -EGD/COLONOSCOPY/POLYPECTOMY -CABG 5 VESSEL AT AGE 39 -MULTIPLE CARDIAC CATHS, WITH 6-7 STENTS AND MULTIPLE ANGIOPLASTIES -CARDIAC CATH 07/06/20- BY DR. PIMENTEL CONCLUSION: 1. Severe in-stent restenosis at the overlapping stents of the right PDA, successful intervention using noncompliant balloon with high pressure 2.5 x 20 mm with multiple inflation with resolution of the restenosis completely 2. Patent stent in the proximal circumflex artery followed by moderate stenosis, it will be monitored. Known occluded obtuse marginal branches 3. Occluded LAD at the midportion, patent REYES to the LAD with small LAD tapering down after the anastomosis with diffuse disease, not amendable to intervention due to the size of the artery 4. Known to have occluded 2 vein grafts 4. Mildly elevated left ventricular end-diastolic pressure Physical Exam Vital Signs Vital Signs - First Documented 03/04/21 16:49 Temp 36.3 Pulse 80 Resp 18 B/P (MAP) 113/66 (82) Pulse Ox 97 O2 Delivery Room Air Capillary Refill : Height, Weight, BMI Height: 6'1.00" Weight: 277lbs. 0.0oz. 125.881520us; 38.50 BMI Method:Stated General Appearance: No Apparent Distress, WD/WN Eyes: Bilateral Eye Normal Inspection, Bilateral Eye PERRL, Bilateral Eye Abnormal EOM HEENT: PERRL/EOMI, TMs Normal, Normal ENT Inspection, Pharynx Normal, Moist Mucous Membranes Neck: Full Range of Motion, Normal Inspection, Non Tender Respiratory: Chest Non Tender, Lungs Clear, Normal Breath Sounds, No Accessory Muscle Use, No Respiratory Distress Cardiovascular: Regular Rate, Rhythm, No Edema, Normal Peripheral Pulses, Syst olic Murmur Gastrointestinal: Normal Bowel Sounds, Non Tender, Soft Back: Normal Inspection, No CVA Tenderness Extremity: Normal Capillary Refill, Normal Inspection, Normal Range of Motion Neurologic/Psychiatric: Alert, Oriented x3, No Motor/Sensory Deficits, Normal Mood/Affect Skin: Normal Color, Warm/Dry Procedures/Interventions Suture Size: 4-0 Progress/Results/Core Measures Suspected Sepsis SIRS Temperature: Pulse: Respiratory Rate: Laboratory Tests 03/04/21 17:08: White Blood Count 10.0 Blood Pressure / Mean: Laboratory Tests 03/04/21 17:08: Creatinine 1.22, Platelet Count 251, Total Bilirubin 0.4 Results/Orders Lab Results Laboratory Tests Test 03/04/21 17:08 Range/Units White Blood Count 10.0 4.3-11.0 10^3/uL Red Blood Count 3.79 L 4.30-5.52 10^6/uL Hemoglobin 10.7 L 13.3-17.7 g/dL Hematocrit 32 L 40-54 % Mean Corpuscular Volume 85 80-99 fL Mean Corpuscular Hemoglobin 28 25-34 pg Mean Corpuscular Hemoglobin Concent 33 32-36 g/dL Red Cell Distribution Width 13.3 10.0-14.5 % Platelet Count 251 130-400 10^3/uL Mean Platelet Volume 9.2 9.0-12.2 fL Immature Granulocyte % (Auto) 0 % Neutrophils (%) (Auto) 56 42-75 % Lymphocytes (%) (Auto) 35 12-44 % Monocytes (%) (Auto) 6 0-12 % Eosinophils (%) (Auto) 3 0-10 % Basophils (%) (Auto) 0 0-10 % Neutrophils # (Auto) 5.6 1.8-7.8 10^3/uL Lymphocytes # (Auto) 3.4 1.0-4.0 10^3/uL Monocytes # (Auto) 0.6 0.0-1.0 10^3/uL Eosinophils # (Auto) 0.3 0.0-0.3 10^3/uL Basophils # (Auto) 0.0 0.0-0.1 10^3/uL Immature Granulocyte # (Auto) 0.0 0.0-0.1 10^3/uL Urine Color YELLOW Urine Clarity CLEAR Urine pH 6.0 5-9 Urine Specific [place] 1.010 L 1.016-1.022 Urine Protein NEGATIVE NEGATIVE Urine Glucose (UA) NEGATIVE NEGATIVE Urine Ketones NEGATIVE NEGATIVE Urine Nitrite NEGATIVE NEGATIVE Urine Bilirubin NEGATIVE NEGATIVE Urine Urobilinogen 0.2 < = 1.0 MG/DL Urine Leukocyte Esterase NEGATIVE NEGATIVE Urine RBC (Auto) NEGATIVE NEGATIVE Urine RBC NONE /HPF Urine WBC RARE /HPF Urine Crystals PRESENT H /LPF Urine Amorphous Sediment RARE JENNIFER URATES H /LPF Urine Bacteria NEGATIVE /HPF Urine Casts PRESENT /LPF Urine Hyaline Casts 2-5 H /LPF Urine Mucus NEGATIVE /LPF Urine Culture Indicated NO Sodium Level 142 135-145 MMOL/L Potassium Level 4.4 3.6-5.0 MMOL/L Chloride Level 107 98-107 MMOL/L Carbon Dioxide Level 23 21-32 MMOL/L Anion Gap 12 5-14 MMOL/L Blood Urea Nitrogen 14 7-18 MG/DL Creatinine 1.22 0.60-1.30 MG/DL Estimat Glomerular Filtration Rate 63 BUN/Creatinine Ratio 11 Glucose Level 107 H 70-105 MG/DL Calcium Level 9.0 8.5-10.1 MG/DL Corrected Calcium 8.9 8.5-10.1 MG/DL Total Bilirubin 0.4 0.1-1.0 MG/DL Aspartate Amino Transf (AST/SGOT) 12 5-34 U/L Alanine Aminotransferase (ALT/SGPT) 12 0-55 U/L Alkaline Phosphatase 55 40-136 U/L Total Protein 7.2 6.4-8.2 GM/DL Albumin 4.1 3.2-4.5 GM/DL Lipase 107 H 8-78 U/L Urine Opiates Screen NEGATIVE NEGATIVE Urine Oxycodone Screen NEGATIVE NEGATIVE Urine Methadone Screen NEGATIVE NEGATIVE Urine Propoxyphene Screen NEGATIVE NEGATIVE Urine Barbiturates Screen NEGATIVE NEGATIVE Ur Tricyclic Antidepressants Screen NEGATIVE NEGATIVE Urine Phencyclidine Screen NEGATIVE NEGATIVE Urine Amphetamines Screen NEGATIVE NEGATIVE Urine Methamphetamines Screen NEGATIVE NEGATIVE Urine Benzodiazepines Screen NEGATIVE NEGATIVE Urine Cocaine Screen NEGATIVE NEGATIVE Urine Cannabinoids Screen POSITIVE H NEGATIVE Serum Alcohol < 10 <10 MG/DL My Orders Orders - RALF [employer] Ua Culture If Indicated (03/04/21 16:45) Alcohol (03/04/21 16:45) Cbc With Automated Diff (03/04/21 16:45) Comprehensive Metabolic Panel (03/04/21 16:45) Lipase (03/04/21 16:45) Drug Screen Stat (Urine) (03/04/21 16:45) Ns Iv 1000 Ml (Sodium Chloride 0.9%) (03/04/21 17:15) Medications Given in ED Current Medications Medications Dose Ordered Sig/Colette Route Start Time Stop Time Status Last Admin Dose Admin Sodium Chloride 1,000 ml @ 999 mls/hr Q1H ONCE IV 03/04/21 17:15 03/04/21 18:15 03/04/21 17:25 999 MLS/HR Vital Signs/I&O 03/04/21 16:49 Temp 36.3 Pulse 80 Resp 18 B/P (MAP) 113/66 (82) Pulse Ox 97 O2 Delivery Room Air Capillary Refill : Progress Note : Progress Note Patient examined and in no acute distress. Will repeat lab work and initiate IV fluids. Departure Impression Primary Impression: Nausea & vomiting Additional Impression: Dehydration Disposition: 01 HOME, SELF-CARE Condition: Improved Departure-Patient Inst. Decision time for Depature: 17:55 Referrals: JUNIOR XIE MD (PCP/Family) Primary Care Physician Patient Instructions: Nausea and Vomiting, Adult (DC) Add. Discharge Instructions: Plan: 1. Follow up with your doctor on Saturday. 2. Return for any new, concerning, or worsening symptoms. All discharge instructions reviewed with patient and/or family. Voiced understan lloyd. R[employer] Mar 04, 2021 17:04
[2021-03-04 17:15] LABS: BASOPHILS % (AUTO) 0 % (0-10); BILIRUBIN,URINE NEGATIVE (NEGATIVE); CLARITY,URINE CLEAR; COLOR,URINE YELLOW; EOSINOPHILS # (AUTO) 0.3 10^3/uL (0.0-0.3); EOSINOPHILS % (AUTO) 3 % (0-10); GLUCOSE, URINE (UA) NEGATIVE (NEGATIVE); HEMATOCRIT 32 % (40-54); HEMOGLOBIN 10.7 g/dL (13.3-17.7); KETONES,URINE NEGATIVE (NEGATIVE); LEUKOCYTE ESTERASE ,URINE NEGATIVE (NEGATIVE); LYMPHOCYTES # (AUTO) 3.4 10^3/uL (1.0-4.0); LYMPHOCYTES % (AUTO) 35 % (12-44); MEAN CORPUSCULAR HEMOGLOBIN 28 pg (25-34); MEAN CORPUSCULAR HGB CONC 33 g/dL (32-36); MEAN CORPUSCULAR VOLUME 85 fL (80-99); MEAN PLATELET VOLUME 9.2 fL (9.0-12.2); MONOCYTES # (AUTO) 0.6 10^3/uL (0.0-1.0); MONOCYTES % (AUTO) 6 % (0-12); NEUTROPHILS # (AUTO) 5.6 10^3/uL (1.8-7.8); NEUTROPHILS % (AUTO) 56 % (42-75); NITRITE,URINE NEGATIVE (NEGATIVE); PLATELET COUNT 251 10^3/uL (130-400); PROTEIN,URINE NEGATIVE (NEGATIVE)
[2021-03-04] MEDS ORDERED: NS IV 1000 ML 1,000 ML IV ONE (17:15)
[2021-03-04 17:26] LABS: ALBUMIN 4.1 GM/DL (3.2-4.5); CHLORIDE 107 MMOL/L (98-107); POTASSIUM 4.4 MMOL/L (3.6-5.0); SODIUM 142 MMOL/L (135-145)
[2021-03-04 17:27] LABS: AMORPHOUS SEDIMENT,UR RARE AMOR URATES /LPF; BACTERIA,URINE NEGATIVE /HPF; WBC,URINE RARE /HPF
[2021-03-04 17:28] LABS: GLUCOSE 107 MG/DL (70-105); TOTAL PROTEIN 7.2 GM/DL (6.4-8.2)
[2021-03-04 17:29] LABS: CARBON DIOXIDE 23 MMOL/L (21-32)
[2021-03-04 17:30] LABS: BILIRUBIN,TOTAL 0.4 MG/DL (0.1-1.0)
[2021-03-04 17:32] LABS: ALKALINE PHOSPHATASE 55 U/L (40-136); CREATININE SERUM 1.22 MG/DL (0.60-1.30); GFR ESTIMATED 63
[2021-03-04 17:33] LABS: BUN/CREATININE RATIO 11
[2021-03-04 17:35] LABS: ALANINE AMINOTRANSFERASE 12 U/L (0-55); LIPASE 107 U/L (8-78)
[2021-03-04 17:40] LABS: AMPHETAMINE SCREEN, URINE NEGATIVE (NEGATIVE); BARBITURATE SCREEN URINE NEGATIVE (NEGATIVE); BENZODIAZEPINES SCREEN URINE NEGATIVE (NEGATIVE); CANNABINOID SCREEN, URINE POSITIVE (NEGATIVE); COCAINE SCREEN URINE NEGATIVE (NEGATIVE); METHADONE STAT NEGATIVE (NEGATIVE); METHAMPHETAMINE SCREEN URINE S NEGATIVE (NEGATIVE); OPIATE SCREEN URINE NEGATIVE (NEGATIVE); OXYCODONE STAT NEGATIVE (NEGATIVE); PROPOXYPHENE STAT NEGATIVE (NEGATIVE); TRICYCLIC ANTIDEPRESSANTS SCRE NEGATIVE (NEGATIVE)
[2021-03-04 18:02] VITALS: BP 123/63
== END 2021-03-04 17:55 | disposition home or self-care (01) ==
LOC: EDUNIT# 16:34 → ER 16:38
DX: R11.2 Nausea with vomiting, unspecified (principal); E86.0 Dehydration; I11.0 Hypertensive heart disease with heart failure; I50.9 Heart failure, unspecified; E11.9 Type 2 diabetes mellitus without complications; I25.10 Atherosclerotic heart disease of native coronary artery without angina pectoris; J43.9 Emphysema, unspecified; E78.00 Pure hypercholesterolemia, unspecified; I48.91 Unspecified atrial fibrillation; I69.398 Other sequelae of cerebral infarction; K21.9 Gastro-esophageal reflux disease without esophagitis; F41.9 Anxiety disorder, unspecified; F32.9 Major depressive disorder, single episode, unspecified; G89.29 Other chronic pain; M54.9 Dorsalgia, unspecified; E66.9 Obesity, unspecified; Z68.38 Body mass index [BMI] 38.0-38.9, adult; Z95.1 Presence of aortocoronary bypass graft; Z95.5 Presence of coronary angioplasty implant and graft; Z87.891 Personal history of nicotine dependence; Z79.82 Long term (current) use of aspirin; Z79.01 Long term (current) use of anticoagulants; Z79.51 Long term (current) use of inhaled steroids; Z79.84 Long term (current) use of oral hypoglycemic drugs; Z79.899 Other long term (current) drug therapy
CPT/HCPCS: 80053; 80306; 81000; 83690; 85025; 99284; G0480; 36415; 80320

== ENCOUNTER 2021-03-15 11:30 | Outpatient (RCR) | payer MEDICARE, MEDICAID | END 2021-04-11 | disposition home or self-care (01) | LOC: CR 11:30 | PROVIDERS: ATTEND Family Medicine | DX: Z98.61 Coronary angioplasty status (principal) | CPT/HCPCS: 93798 ==

== ENCOUNTER → 2021-07-25 | Outpatient (CLI) | payer MEDICARE, MEDICAID ==
[~2021-07-25] MED LIST changes: +DICY20TA PO; -DICY20TA10 PO; -DULO60CA6 PO; +DULO60CA7 PO; -LISI-729 PO; +LISI5TAB20 PO; +MONT-40 PO; -MONT10TA32 PO
--- NOTE | 2021-07-25 12:22 | Diagnostic Imaging Report ---
RADIOPHARMACEUTICAL: 1mCi Tc99m Sulfur Colloid, PO INDICATION: Early satiety, delayed gastric emptying TECHNIQUE: Tc99m labeled Sulfur Colloid was cooked in egg and a standard radiolabeled meal was administered. Subsequent images were obtained in the anterior and posterior projections for up to 4 hours. FINDINGS: Activity in the stomach normally progresses to the small bowel. The gastric emptying half-time is between 52 and 104 minutes, which is within normal limits. At 1 hour, the stomach demonstrated 61% emptying. At 2 hours, the stomach demonstrated 75% emptying. At 3 hours, the stomach demonstrated 96% emptying. At 4 hours, the stomach demonstrated 99% emptying. IMPRESSION: 1. Normal gastric emptying evaluation. 2. Normalemptying half-time at between 52 and 104 minutes. Dictated by: Dictated on workstation # [id number]
== END ==
LOC: CARD 06:45
PROVIDERS: ATTEND Nurse Practitioner
DX: K31.89 Other diseases of stomach and duodenum (principal); R68.81 Early satiety
CPT/HCPCS: 78264; A9541

== ENCOUNTER 2022-04-24 18:02 | Observation (INO) | payer MEDICARE, MEDICAID ==
[~2022-04-24] VITALS: Ht 185.4 cm; Wt 103.1 kg
--- NOTE | 2022-04-24 18:18 | ED Chest Pain ---
General Chief Complaint: Chest Pain Stated Complaint: CHEST PAIN Source: patient Exam Limitations: no limitations History of Present Illness Date Seen by Provider: Apr 24, 2022 Time Seen by Provider: 18:00 Initial Comments 52-year-old male presents the emergency department today via EMS for chest pain. Symptoms present for 3 days constantly is a pressure of 5/10 in his mid right chest wall. He states this is worse with exertion. He also describes an intermittent sharp stabbing pain in his left anterior chest that lasts only a few seconds. Overall his pain is without radiation. No alleviating factors. He states he is taken 12 nitroglycerin tablets over the last 24 hours which has not helped with his pain. He denies any fevers but has had chills and diaphoresis. Has had nausea but this is fairly common for him. No vomiting. No sick contacts. No unilateral lower extremity pain, swelling. No abdominal pain. No changes in bowel bladder habits. Significant history of cardiac disease with CABG and 6 stents subsequent to his CABG. Allergies and Home Medications Allergies Coded Allergies: prednisone (Verified Allergy, Intermediate, RASH, 04/23/15) hydrocodone (Verified Allergy, Unknown, 04/23/15) venom-honey bee (Verified Allergy, Unknown, 04/23/15) Patient Home Medication List Home Medication List Reviewed: Yes Acetaminophen (Tylenol Extra Strength) 500 Mg Tablet, 1,000 MG PO Q6H PRN for PAIN-MILD (1-4), (Reported) Entered as Reported by: AROLDO MEDINA on 09/02/20 1334 Albuterol Sulfate (Ventolin Hfa) 18 Gm Hfa.aer.ad, 2 PUFF INH Q6H PRN for SHORTNESS OF BREATH, (Reported) Entered as Reported by: MYESHA ELIZONDO on 12/03/18 1340 Amoxicillin (Amoxicillin) 500 Mg Capsule, 500 MG PO TID, (Reported) Entered as Reported by: AROLDO MEDINA on 02/03/21 1619 Aspirin (Aspirin EC) 81 Mg Tablet.dr, 81 MG PO 1800, (Reported) Entered as Reported by: BRADLEY DE LEON on 12/19/20 1325 Atorvastatin Calcium (Atorvastatin Calcium) 40 Mg Tablet, 80 MG PO HS, (Reported) Entered as Reported by: AROLDO MEDINA on 02/03/21 1619 Baclofen (Baclofen) 20 Mg Tablet, 20 MG PO TID PRN for MUSCLE SPASMS, (Reported) Entered as Reported by: BRADLEY DE LEON on 12/19/20 1325 Buspirone HCl (Buspirone HCl) 10 Mg Tablet, 20 MG PO TID, (Reported) Entered as Reported by: KIMBERLYN PATTERSON on 02/06/18 1228 Clopidogrel Bisulfate (Clopidogrel) 75 Mg Tablet, 75 MG PO DAILY, (Reported) Entered as Reported by: AROLDO MEDINA on 02/03/21 1619 Ezetimibe (Ezetimibe) 10 Mg Tablet, 10 MG PO 1200, (Reported) Entered as Reported by: AROLDO MEDINA on 02/03/21 161 Fluticasone/Vilanterol (Breo Ellipta 200-25 Mcg INH) 1 Each Blst.w.dev, 1 EACH IH DAILY, (Reported) Entered as Reported by: AROLDO MEDINA on 07/06/20 0803 Gabapentin (Neurontin) 300 Mg Capsule, 300 MG PO BID PRN for PAIN-BREAKTHROUGH, (Reported) Entered as Reported by: AROLDO MEDINA on 07/06/20 0800 Gabapentin (Neurontin) 300 Mg Capsule, 300 MG PO HS, (Reported) Entered as Reported by: AROLDO MEDINA on 02/03/21 161 Glyburide (Glyburide) 5 Mg Tablet, 5 MG PO DAILY, (Reported) Entered as Reported by: AROLDO MEDINA on 02/03/21 161 Icosapent Ethyl (Vascepa) 1 Gm Capsule, 2 GM PO BID, (Reported) Entered as Reported by: MYESHA ELIZONDO on 12/03/18 1340 Isosorbide Mononitrate (Isosorbide Mononitrate ER) 60 Mg Tab, 60 MG PO DAILY, (Reported) Entered as Reported by: MYESHA ELIZONDO on 12/03/18 1340 Lisinopril (Lisinopril) 5 Mg Tablet, 5 MG PO DAILY, (Reported) Entered as Reported by: AROLDO MEDINA on 07/06/20 0800 Meclizine HCl (Meclizine HCl) 25 Mg Tablet, 25 MG PO QID PRN for VERTIGO/DIZZINESS, (Reported) Entered as Reported by: MYESHA ELIZONDO on 12/03/18 1340 Metformin HCl (Metformin HCl) 1,000 Mg Tablet, 1,000 MG PO BID WITH MEALS, (Reported) Entered as Reported by: AROLDO MEDINA on 02/03/21 1619 Metoprolol Succinate (Metoprolol Succinate) 50 Mg Tab.er.24h, 50 MG PO BID, (Reported) Entered as Reported by: AROLDO MEDINA on 09/02/20 1334 Montelukast Sodium (Montelukast Sodium) 10 Mg Tablet, 10 MG PO HS, (Reported) Entered as Reported by: AROLDO MEDINA on 02/03/21 1619 Nitroglycerin (Nitroglycerin) 0.4 Mg Tab.subl, 0.4 MG SL UD PRN for CHEST PAIN, (Reported) Entered as Reported by: AROLDO MEDINA on 07/06/20 0800 Pantoprazole Sodium (Pantoprazole Sodium) 40 Mg Tablet.dr, 40 MG PO HS, (Reported) Entered as Reported by: AROLDO MEDINA on 02/03/21 1619 Promethazine HCl (Promethazine HCl) 50 Mg Tablet, 50 MG PO Q6H PRN for NAUSEA/VOMITING-2ND LINE, (Reported) Entered as Reported by: AROLDO MEDINA on 09/02/20 1334 Ranolazine (Ranexa) 1,000 Mg Tab.er.12h, 1,000 MG PO BID, (Reported) Entered as Reported by: KIMBERLYN PATTERSON on 02/06/18 1228 Rivaroxaban (Xarelto Tablet) 20 Mg Tablet, 20 MG PO 1800, (Reported) Entered as Reported by: PAT PHELAN on 02/26/16 1316 Trazodone HCl (Trazodone HCl) 100 Mg Tablet, 100 MG PO HS, (Reported) Entered as Reported by: MYESHA ELIZONDO on 12/03/18 1340 Vortioxetine Hydrobromide (Trintellix) 20 Mg Tablet, 20 MG PO 1800, (Reported) Entered as Reported by: BRADLEY DE LEON on 12/19/20 1325 Review of Systems Review of Systems Constitutional: chills, diaphoresis EENTM: No Symptoms Reported Respiratory: No Symptoms Reported Cardiovascular: Chest Pain Gastrointestinal: No Symptoms Reported Genitourinary: No Symptoms Reported Musculoskeletal: no symptoms reported Skin: no symptoms reported Psychiatric/Neurological: No Symptoms Reported Endocrine: No Symptoms Reported Hematologic/Lymphatic: No Symptoms Reported Past Nfyrvhd-Kypena-Lkonmq Hx Patient Social History Tobacco Use?: Yes Substance use?: No Alcohol Use?: No Immunizations Up To Date Tetanus Booster (TDap): Unknown PED Vaccines UTD: No Seasonal Allergies Seasonal Allergies: Yes Past Medical History Surgeries: Yes Angioplasty, CABG, Coronary Stent Respiratory: Yes COPD, Emphysema Currently Using CPAP: Yes (doesnt use it ) Currently Using BIPAP: No Cardiac: Yes (5 VESSEL CABG AGE 39;MULTIPLE CATHS- 6-7 STENTS, MULTIPLE ANGIOPLASTIES;CHF) Atrial Fibrillation, Coronary Artery Disease, Heart Attack, High Cholesterol, Hypertension Neurological: Yes (CVA WITH SOME RESIDUAL PROBLEMS WITH BALANCE AND SHORT TERM MEMORY) Stroke, TIA Reproductive Disorders: No Sexually Transmitted Disease: No HIV/AIDS: No Genitourinary: No Gastrointestinal: Yes Gastroesophageal Reflux Musculoskeletal: Yes (SCIATICA) Chronic Back Pain, Spasms Endocrine: Yes (OBESITY) Diabetes, Non-Insulin dep HEENT: Yes Eye Injury, Double Vision Loss of Vision: Right Hearing Impairment: Denies Cancer: No Psychosocial: Yes (OCD; INTENTIONAL OVERDOSE/SUICIDE ATTEMPT 06/2017) Sleep Difficulties, Anxiety, Suicide Attempts, Depression Integumentary: No Blood Disorders: No Adverse Reaction/Blood Tranf: No Family Medical History Reviewed Nursing Family Hx Brain cancer 19 FATHER Congestive heart failure 19 MOTHER Coronary artery disease 19 FATHER Diabetes mellitus 19 MOTHER Heart attack 19 FATHER 19 MOTHER Hypertension 19 FATHER 19 MOTHER Lung cancer 19 FATHER Heart Disease, Cancer, Diabetes SOCIAL HISTORY: -ETOH--HEAVY USE BY HISTORY, NOW OCCASIONAL USE -DRUGS--COCAINE AND THC IN PAST, DENIES IV DRUG USE -SMOKED 1 1/2 PPD, QUIT 20 YEARS AGO PAST SURGICAL HISTORY: -ULNAR DECOMPRESSION -CYST REMOVAL -EGD/COLONOSCOPY/POLYPECTOMY -CABG 5 VESSEL AT AGE 39 -MULTIPLE CARDIAC CATHS, WITH 6-7 STENTS AND MULTIPLE ANGIOPLASTIES -CARDIAC CATH 07/06/20- BY DR. PIMENTEL CONCLUSION: 1. Severe in-stent restenosis at the overlapping stents of the right PDA, successful intervention using noncompliant balloon with high pressure 2.5 x 20 mm with multiple inflation with resolution of the restenosis completely 2. Patent stent in the proximal circumflex artery followed by moderate stenosis, it will be monitored. Known occluded obtuse marginal branches 3. Occluded LAD at the midportion, patent REYES to the LAD with small LAD tapering down after the anastomosis with diffuse disease, not amendable to intervention due to the size of the artery 4. Known to have occluded 2 vein grafts 4. Mildly elevated left ventricular end-diastolic pressure Physical Exam Vital Signs Vital Signs - First Documented 04/24/22 18:05 Temp 35.3 Pulse 73 Resp 12 B/P (MAP) 106/72 (83) Pulse Ox 98 Capillary Refill : Height, Weight, BMI Height: 6'1.00" Weight: 277lbs. 0.0oz. 125.527325zy; 36.00 BMI Method:Stated General Appearance: No Apparent Distress, WD/WN HEENT: Normal ENT Inspection, Pharynx Normal Neck: Normal Inspection, Non Tender, Supple Respiratory: Chest Non Tender, Lungs Clear, Normal Breath Sounds, No Accessory Muscle Use, No Respiratory Distress Cardiovascular: Regular Rate, Rhythm, No Edema, No Gallop, No JVD, No Murmur, Normal Peripheral Pulses Gastrointestinal: Normal Bowel Sounds, No Organomegaly, No Pulsatile Mass, Non Tender, Soft Extremity: Normal Capillary Refill, Normal Inspection, Normal Range of Motion, Non Tender, No Calf Tenderness Skin: Normal Color, Diaphoresis Lymphatic: No Adenopathy Procedures/Interventions Suture Size: 4-0 Progress/Results/Core Measures Results/Orders Lab Results Laboratory Tests Test 04/24/22 18:06 Range/Units White Blood Count 6.1 4.3-11.0 10^3/uL Red Blood Count 4.51 4.30-5.52 10^6/uL Hemoglobin 12.7 L 13.3-17.7 g/dL Hematocrit 37 L 40-54 % Mean Corpuscular Volume 83 80-99 fL Mean Corpuscular Hemoglobin 28 25-34 pg Mean Corpuscular Hemoglobin Concent 34 32-36 g/dL Red Cell Distribution Width 13.1 10.0-14.5 % Platelet Count 221 130-400 10^3/uL Mean Platelet Volume 10.1 9.0-12.2 fL Immature Granulocyte % (Auto) 0 % Neutrophils (%) (Auto) 55 42-75 % Lymphocytes (%) (Auto) 27 12-44 % Monocytes (%) (Auto) 16 H 0-12 % Eosinophils (%) (Auto) 2 0-10 % Basophils (%) (Auto) 0 0-10 % Neutrophils # (Auto) 3.3 1.8-7.8 10^3/uL Lymphocytes # (Auto) 1.6 1.0-4.0 10^3/uL Monocytes # (Auto) 1.0 0.0-1.0 10^3/uL Eosinophils # (Auto) 0.1 0.0-0.3 10^3/uL Basophils # (Auto) 0.0 0.0-0.1 10^3/uL Immature Granulocyte # (Auto) 0.0 0.0-0.1 10^3/uL Prothrombin Time 18.0 H 12.2-14.7 SEC INR Comment 1.4 0.8-1.4 Activated Partial Thromboplast Time 42 H 24-35 SEC Sodium Level 137 135-145 MMOL/L Potassium Level 4.5 3.6-5.0 MMOL/L Chloride Level 98 98-107 MMOL/L Carbon Dioxide Level 23 21-32 MMOL/L Anion Gap 16 H 5-14 MMOL/L Blood Urea Nitrogen 21 H 7-18 MG/DL Creatinine 2.31 H 0.60-1.30 MG/DL Estimat Glomerular Filtration Rate 34 BUN/Creatinine Ratio 9 Glucose Level 114 H 70-105 MG/DL Calcium Level 9.6 8.5-10.1 MG/DL Corrected Calcium 8.5-10.1 MG/DL Magnesium Level 1.7 1.6-2.4 MG/DL Total Bilirubin 0.5 0.1-1.0 MG/DL Aspartate Amino Transf (AST/SGOT) 18 5-34 U/L Alanine Aminotransferase (ALT/SGPT) 15 0-55 U/L Alkaline Phosphatase 58 40-136 U/L Myoglobin 60.2 10.0-92.0 NG/ML Troponin I < 0.028 <0.028 NG/ML Total Protein 8.1 6.4-8.2 GM/DL Albumin 4.6 H 3.2-4.5 GM/DL My Orders Orders - DASHA SPENCER DO Ekg Tracing (04/24/22 18:03) Cbc With Automated Diff (04/24/22 18:08) Magnesium (04/24/22 18:08) Chest 1 View, Ap/Pa Only (04/24/22 18:08) Ekg Tracing (04/24/22 18:08) Comprehensive Metabolic Panel (04/24/22 18:08) Myoglobin Serum (04/24/22 18:08) Protime With Inr (04/24/22 18:08) Partial Thromboplastin Time (04/24/22 18:08) Monitor-Rhythm Ecg Trace Only (04/24/22 18:08) Lipid Panel (04/25/22 06:00) Ed Iv/Invasive Line Start (04/24/22 18:08) Troponin I [place] (04/24/22 18:08) Fentanyl Inj (Sublimaze Injection) (04/24/22 19:15) Ed Admission (Communication) (04/24/22 19:38) Medications Given in ED Current Medications Medications Dose Ordered Sig/Colette Route Start Time Stop Time Status Last Admin Dose Admin Fentanyl Citrate 50 mcg ONCE PRN IVP 04/24/22 19:15 04/24/22 19:19 50 MCG Vital Signs/I&O 04/24/22 18:05 Temp 35.3 Pulse 73 Resp 12 B/P (MAP) 106/72 (83) Pulse Ox 98 Initial ECG Impression Date: Apr 24, 2022 Initial ECG Impression Time: 18:14 Comment Sinus rhythm with a rate of 76 bpm. Normal intervals. Left axis deviation. There are ST depressions and T wave inversions in lead I, aVL, V1, V2, V3, V4 V5 and V6. No ST elevations. Diagnostic Imaging Comments NAME: OMAR [facility]ATTERJEE [facility] REC#: [id number] : 1970 ADMIT DATE: 12/17/20 PHYSICIAN: JAMEEL PIMENTEL MD PROCEDURE REPORT Cardiac Cath Report Physician (s)/Jewelry Consultant (s) Physician JAMEEL PIMENTEL MD Pre-Procedure Diagnosis Pre-Procedure Diagnosis: chest pain, coronary artery disease Post-Procedure Note Procedure Start Date: December 19, 2020 Name of Procedure: Left heart catheterization REYES angiogram Vein graft angiogram PTCA to the right PDA Findings/Procedure Note PROCEDURE NOTE: 50 years old gentleman with extensive coronary artery disease multiple intervention in the past, has been having chest pain and syncope, had an abnormal stress test, scheduled for cardiac catheterization After explaining the procedure to the patient, all pros and cons were explained, all questions were answered. The patient signed the consent and then he was placed on the cardiac catheterization laboratory. Groin was prepped SL fashion local anesthesia was used. Sheath placed in the artery. Leodan right and left catheter were used to access the coronary system.Vein Graft evaluated. REYES evaluated. Pigtail was used to access the left ventricular cavity. Left ventriculogram was done Patient was noted to have severe in-stent restenosis in the right PDA, had an intervention done on it in August 2020. I gave him 6000 units of heparin, FIR guide was used and BMW wire was advanced into the distal right coronary artery I used trek 2.5 x 20 mm balloon did multiple inflation at a high pressure up to 17 gurjit which extended the balloon to 2.75 mm. Angiogram showed excellent results At the end of the procedure the sheath was removed. Closure device was deployed FINDINGS: Hemodynamics LV 142/25, end-diastolic pressure of 25 Aorta 146/96 mean of 103 ANATOMY: Left Main has moderate disease Left Anterior Descending is occluded at the midportion, patent REYES to LAD with small vessel disease distally Left Circumflex is very small proper circumflex artery with moderate stenosis, the obtuse marginal branch are occluded, there is then a stent in the obtuse marginal branch that is occluded. Both vein grafts were occluded Right Coronary Artery is dominant artery, severe in-stent restenosis in the right PDA, underwent high-pressure balloon with expansion of the stent to 2.75 mm with excellent results REYES to LAD is patent with small vessel disease distally Vein Graft evaluation showed 2 occluded vein grafts LV Gram was done showing diffuse left ventricular hypokinesia estimate ejection fraction 45% CONCLUSION: 1. Severe recurrent in-stent restenosis in the right PDA, I used 2.5 x 20 mm trek balloon expanded under 17 gurjit to 2.75 mm with excellent results. 2. Occluded obtuse marginal branches and vein graft to the obtuse marginal branches 3. Patent REYES to LAD with small vessel disease distally 4. Mild to moderate diffuse left ventricular hypokinesia EF 45% DISCUSSION AND RECOMMENDATION: Continue to maximize medical therapy Anesthesia Type: Conscious Sedation Estimated blood loss (mL): 30 ml Contrast Amount: 40 ml Total Radiation Dose: 1105 mGy Post-Procedure Diagnosis (1) Chest pain (2) Coronary artery disease Qualifiers: (3) Hypotension (4) Marijuana use (5) CVA (cerebral infarction) (6) Tooth ache (7) Hyperlipemia Assessment & Plan: Not at goal JAMEEL PIMENTEL MD December 19, 2020 4:29 pm [id number] <Created by JAMEEL PIMENTEL MD> <Electronically signed by JAMEEL PIMENTEL MD> 12/19/20 1629 [facility] [place], [place] NAME: OMAR CHATTERJEE [facility] REC#: [id number] PT STATUS: REG ER : 1970 PHYSICIAN: DASHA SPENCER DO ADMIT DATE: 04/24/22/ER Draft Date of Exam:04/24/22 CHEST 1 VIEW, AP/PA ONLY INDICATION: Chest pain, prior heart surgery. EXAMINATION: Chest 04/24/2022 COMPARISON: 02/03/2021 FINDINGS: Sternotomy wires and mediastinal clips noted. Heart and pulmonary vasculature normal. Lungs and pleural spaces clear. No infiltrates, effusions or pneumothorax. IMPRESSION: 1. No acute cardiopulmonary process. Dictated on workstation # [id number] Dict: 04/24/225 Trans: 04/24/221846 [facility] [id number] Interpreted by: CHRISTINA REESE MD Electronically signed by: Departure Communication (Admissions) Time/Spoke to Admitting Phy: 19:[address] Nash. She requests admission observation to the ICU. States she will write acute care orders. Time/Spoke to Consulting Phy: 19:[address] Joseph. Request patient continue home medications and admission to the hospital service. Request morphine every 2 hours for pain. Patient remained hemodynamically stable. Troponins negative. EKG similar to previous. Continues to have chest pain. Spoke with cardiology, Dr. Nash. Patient will be admitted to the ICU in otherwise stable condition. Impression Primary Impression: Chest pain Qualified Codes: R07.9 - Chest pain, unspecified Additional Impression: LUISA (acute kidney injury) Disposition: ADMITTED INPATIENT Condition: Stable Admissions Decision to Admit Reason: Admit from ER (General) Decision to Admit/Date: Apr 25, 2022 Time/Decision to Admit Time: 19:35 Departure-Patient Inst. Referrals: JUNIOR XIE MD (PCP/Family) Primary Care Physician DASHA SPENCER DO Apr 24, 2022 18:18
[2022-04-24] MEDS ORDERED: hydrOXYzine (VISTARIL/ATARAX) 25 MG capsule/tablet PO ONE (18:30)
--- NOTE | 2022-04-24 18:47 | Diagnostic Imaging Report ---
INDICATION: Chest pain, prior heart surgery. EXAMINATION: Chest 04/24/2022 COMPARISON: 02/03/2021 FINDINGS: Sternotomy wires and mediastinal clips noted. Heart and pulmonary vasculature normal. Lungs and pleural spaces clear. No infiltrates, effusions or pneumothorax. IMPRESSION: 1. No acute cardiopulmonary process. Dictated by: Dictated on workstation # [id number]
[2022-04-24 18:53] LABS: BASOPHILS % (AUTO) 0 % (0-10); EOSINOPHILS # (AUTO) 0.1 10^3/uL (0.0-0.3); EOSINOPHILS % (AUTO) 2 % (0-10); HEMATOCRIT 37 % (40-54); HEMOGLOBIN 12.7 g/dL (13.3-17.7); LYMPHOCYTES # (AUTO) 1.6 10^3/uL (1.0-4.0); LYMPHOCYTES % (AUTO) 27 % (12-44); MEAN CORPUSCULAR HEMOGLOBIN 28 pg (25-34); MEAN CORPUSCULAR HGB CONC 34 g/dL (32-36); MEAN CORPUSCULAR VOLUME 83 fL (80-99); MEAN PLATELET VOLUME 10.1 fL (9.0-12.2); MONOCYTES % (AUTO) 16 % (0-12); NEUTROPHILS # (AUTO) 3.3 10^3/uL (1.8-7.8); NEUTROPHILS % (AUTO) 55 % (42-75); PLATELET COUNT 221 10^3/uL (130-400); WHITE BLOOD COUNT 6.1 10^3/uL (4.3-11.0)
[2022-04-24 19:02] LABS: ALBUMIN 4.6 GM/DL (3.2-4.5); CHLORIDE 98 MMOL/L (98-107); POTASSIUM 4.5 MMOL/L (3.6-5.0); SODIUM 137 MMOL/L (135-145)
[2022-04-24 19:03] LABS: INR 1.4 (0.8-1.4)
[2022-04-24 19:04] LABS: CALCIUM 9.6 MG/DL (8.5-10.1)
[2022-04-24 19:05] LABS: GLUCOSE 114 MG/DL (70-105); TOTAL PROTEIN 8.1 GM/DL (6.4-8.2)
[2022-04-24 19:06] LABS: CARBON DIOXIDE 23 MMOL/L (21-32)
[2022-04-24 19:07] LABS: BILIRUBIN,TOTAL 0.5 MG/DL (0.1-1.0)
[2022-04-24 19:08] LABS: ALKALINE PHOSPHATASE 58 U/L (40-136); CREATININE SERUM 2.31 MG/DL (0.60-1.30); GFR ESTIMATED 34
[2022-04-24 19:10] LABS: BUN/CREATININE RATIO 9
[2022-04-24 19:11] LABS: ALANINE AMINOTRANSFERASE 15 U/L (0-55); MAGNESIUM 1.7 MG/DL (1.6-2.4)
[2022-04-24] MEDS ORDERED: fentaNYL INJ 100 MCG/2 ML AMP IVP PRN (19:15)
[2022-04-24] MEDS ORDERED: diphenhydrAMINE 50 MG/ML INJ (BENADRYL) IVP PRN (21:00)
[2022-04-24] MEDS: SENNOSIDES 8.6 MG (SENOKOT) TAB PO SCH (21:00)
[2022-04-24] MEDS ORDERED: NS IV 500 ML 500 ML IV PRN (21:00)
[2022-04-24] MEDS ORDERED: LORazepam 0.5 MG (ATIVAN) TABLET PO PRN (21:00)
[2022-04-24] MEDS ORDERED: morphine IMMEDIATE RELEASE 15 MG TABLET PO PRN (21:00)
[2022-04-24] MEDS ORDERED: MILK OF MAGNESIA 400 MG/5 ML 30 ML UDC PO PRN (21:00)
[2022-04-24] MEDS ORDERED: CALCIUM CARBONATE 500 MG (TUMS) TAB.CHEW PO PRN (21:00)
[2022-04-24] MEDS ORDERED: BISACODYL 10 MG SUPP (DULCOLAX) PR PRN (21:00)
[2022-04-24] MEDS ORDERED: LACTULOSE SYRUP 10GM/15ML (ENULOSE) 30ML UDC PO PRN (21:00)
[2022-04-24] MEDS ORDERED: MELATONIN 3 MG TABLET PO PRN (21:00)
[2022-04-24] MEDS: NITRO DRIP 25000 MCG/D5W 250 ML IV SCH (21:00)
[2022-04-24] MEDS ORDERED: polyethylene glycoL POWDER 17 GM (MIRALAX) PACK PO PRN (21:00)
[2022-04-24] MEDS ORDERED: diphenhydrAMINE 25 MG TAB (BENADRYL) PO PRN (21:00)
[2022-04-24] MEDS ORDERED: NS IV 1000 ML 1,000 ML IV SCH (21:00)
[2022-04-24] MEDS: DOCUSATE SODIUM 100 MG (COLACE) CAP PO SCH (21:00)
[2022-04-24] MEDS ORDERED: ACETAMINOPHEN 325 MG TABLET PO PRN (21:00)
[2022-04-24 21:15] VITALS: BP 106/72
[2022-04-24] MEDS ORDERED: RT-ALBUTEROL SULF 2.5 MG/3 ML PRE-MIX VIAL INH PRN (21:30)
[2022-04-24] MEDS: morphine INJ 4 MG/ML 1 ML (VIAL/SYRINGE) IV PRN (21:53)
--- NOTE | 2022-04-24 22:48 | Progress Note ---
Subjective Subjective/Events-last exam 52 year old male with history CAD, CABG with multiple stents in the past presented to ED for sudden onset of chest pain, worsening over past 3 days with exertion. Taken multiple SL NG without much improvement. EKG concerning for some ST changes in lateral leads but troponin negative. No ST elevations noted thou gh. Decision made to admit to ICU. BP on low side so stopped informed RN not to given nitroglycerin infusion. Instead treating continued chest pain with morphine. So far, given plavix and xarelto. Vitals reviewed Labs reviewed - of note, elevated creatinine Imaging reviewed Discussed with RN at bedside Assessment/Plan NSTEMI - noted to have EKG changes with hx of CAD/CABG - cardiology consulted. ICU admission for close monitoring. On antiplatelet therapy. Morphine for continued chest pain Acute kidney injury - continue to monitor creatinine, UOP Hypotension - low normal bp- holding nitro gtt. Spent 25 min of critical care time remotely reviewing labs, images, and notes Objective Exam Last Set of Vital Signs Vital Signs Date Time Temp Pulse Resp B/P (MAP) Pulse Ox O2 Delivery O2 Flow Rate FiO2 04/24/22 21:15 35.3 73 98 04/24/22 20:30 12 98/64 Capillary Refill : Results Lab Laboratory Tests 04/24/22 18:06: White Blood Count 6.1, Red Blood Count 4.51, Hemoglobin 12.7L, Hematocrit 37L, Mean Corpuscular Volume 83, Mean Corpuscular Hemoglobin 28, Mean Corpuscular Hemoglobin Concent 34, Red Cell Distribution Width 13.1, Platelet Count 221, Mean Platelet Volume 10.1, Immature Granulocyte % (Auto) 0, Neutrophils (%) (Auto) 55, Lymphocytes (%) (Auto) 27, Monocytes (%) (Auto) 16H, Eosinophils (%) (Auto) 2, Basophils (%) (Auto) 0, Neutrophils # (Auto) 3.3, Lymphocytes # (Auto) 1.6, Monocytes # (Auto) 1.0, Eosinophils # (Auto) 0.1, Basophils # (Auto) 0.0, Immature Granulocyte # (Auto) 0.0, Prothrombin Time 18.0H, INR Comment 1.4, Activated Partial Thromboplast Time 42H, Sodium Level 137, Potassium Level 4.5, Chloride Level 98, Carbon Dioxide Level 23, Anion Gap 16H, Blood Urea Nitrogen 21H, Creatinine 2.31H, Estimat Glomerular Filtration Rate 34, BUN/Creatinine Ratio 9, Glucose Level 114H, Calcium Level 9.6, Corrected Calcium , Magnesium Level 1.7, Total Bilirubin 0.5, Aspartate Amino Transf (AST/SGOT) 18, Alanine Aminotransferase (ALT/SGPT) 15, Alkaline Phosphatase 58, Myoglobin 60.2, Troponin I < 0.028, Total Protein 8.1, Albumin 4.6H Assessment/Plan Assessment/Plan Assess & Plan/Chief Complaint see above Clinical Quality Measures AMI/AHF: ASA po Prior to arrival: Yes ([phone]) CECE ANGELO MD Apr 24, 2022 22:48
[2022-04-25] MEDS: ONDANSETRON 4 MG (ZOFRAN) ORAL DISSOLVE TAB PO PRN (01:07)
[2022-04-25] MEDS: morphine INJ 4 MG/ML 1 ML (VIAL/SYRINGE) IV PRN ×5 (02:02→21:18)
[2022-04-25 05:14] LABS: BASOPHILS % (AUTO) 0 % (0-10); EOSINOPHILS % (AUTO) 0 % (0-10); HEMATOCRIT 34 % (40-54); HEMOGLOBIN 11.6 g/dL (13.3-17.7); LYMPHOCYTES # (AUTO) 1.8 10^3/uL (1.0-4.0); LYMPHOCYTES % (AUTO) 36 % (12-44); MEAN CORPUSCULAR HEMOGLOBIN 28 pg (25-34); MEAN CORPUSCULAR HGB CONC 34 g/dL (32-36); MEAN CORPUSCULAR VOLUME 83 fL (80-99); MEAN PLATELET VOLUME 9.5 fL (9.0-12.2); MONOCYTES # (AUTO) 0.7 10^3/uL (0.0-1.0); MONOCYTES % (AUTO) 14 % (0-12); NEUTROPHILS # (AUTO) 2.4 10^3/uL (1.8-7.8); NEUTROPHILS % (AUTO) 49 % (42-75); PLATELET COUNT 165 10^3/uL (130-400); WHITE BLOOD COUNT 4.9 10^3/uL (4.3-11.0)
[2022-04-25 05:34] LABS: ALBUMIN 4.1 GM/DL (3.2-4.5); POTASSIUM 4.4 MMOL/L (3.6-5.0)
[2022-04-25 05:35] LABS: CALCIUM 8.8 MG/DL (8.5-10.1); TRIGLYCERIDES 221 MG/DL (<150); VLDL CHOLESTEROL 44 MG/DL (5-40)
[2022-04-25 05:36] LABS: TOTAL PROTEIN 7.2 GM/DL (6.4-8.2)
[2022-04-25 05:38] LABS: BILIRUBIN,TOTAL 0.3 MG/DL (0.1-1.0)
[2022-04-25 05:40] LABS: CHOLESTEROL 164 MG/DL (< 200); CREATININE SERUM 1.98 MG/DL (0.60-1.30); PHOSPHORUS 5.2 MG/DL (2.3-4.7)
[2022-04-25 05:41] LABS: HDL CHOLESTEROL 20 MG/DL (40-60)
[2022-04-25 05:43] LABS: MAGNESIUM 1.7 MG/DL (1.6-2.4)
[2022-04-25] MEDS: MAGNESIUM 1 GM/100 ML IVPB 100 ML IV SCH ×3 (06:06→07:36)
[2022-04-25] MEDS: POTASSIUM CL 10MEQ/50ML IVPB 50 ML IV SCH (06:07)
[2022-04-25] MEDS: KCL 20 MEQ TAB (K-DUR) PO SCH (06:07)
--- NOTE | 2022-04-25 08:08 | Diagnostic Imaging Report ---
Indication: Chest pain Portable chest 5:28 AM There are postoperative changes from a median sternotomy. Heart size and pulmonary vascularity are normal. Lungs are clear. There are no effusions or pneumothoraces. IMPRESSION: No acute abnormalities in the chest. Dictated by: Dictated on workstation # [id number]
[2022-04-25] MEDS ORDERED: NS IV 1000 ML 1,000 ML IV SCH (08:24)
[2022-04-25] MEDS ORDERED: ASPIRIN E.C. 81 MG (ECOTRIN) TAB PO SCH (09:00)
--- NOTE | 2022-04-25 09:09 | Tele-ICU Progress Note ---
Subjective Date Seen by a Provider: Apr 25, 2022 Time Seen by a Provider: 09:08 Subjective/Events-last exam (Tele-ICU Physician , progress note) Available chart/ vitals / labs / Images reviewed H&P is from ER notes Patient's information available about PMH, allergy reviewed in EMR. ROS as per chart and RN report Video assessment done using teleICU camera, rest of exam as per RN Discussed with RN. He is a 52-year-old male with a past medical history of extensive coronary artery disease status post bypass surgery at age 39 followed by 6 stent placements in the coronary artery due to recurrent ischemic indices now presented with recurrent chest pain located in the left side of the sternum wh ich is basically heaviness and occasional sharp pain in the left parasternal area. Denies any nausea or vomiting. Initial troponin is normal however subsequent troponin slightly elevated. EKG revealed T wave inversions in the anterolateral leads. He did not tolerate any for over nitroglycerin in the hospital due to low blood pressure. Hence he is being given morphine as needed basis which is helping transiently reducing his chest pain by 50% but not completely. He was evaluated by the cardiology service and is scheduled for cardiac catheterization this afternoon. Now his blood pressure is slightly better. He has a history of. Alcohol abuse and tobacco abuse Review of Systems ROS PER RN Sepsis Event Evaluation Height, Weight, BMI Height: 6'1.00" Weight: 277lbs. 0.0oz. 125.984319cp; 29.93 BMI Method:Stated Exam Exam Patient acknowledged, consented, and participated in this virtual visit which was conducted using real time audio/video Vital Signs Date Time Temp Pulse Resp B/P (MAP) Pulse Ox O2 Delivery O2 Flow Rate FiO2 04/25/22 08:00 36.1 04/25/22 08:00 78 22 137/79 (98) 98 Room Air 04/25/22 07:00 75 04/25/22 07:00 68 24 132/77 (95) 93 Room Air 04/25/22 05:45 71 16 123/76 (92) 95 Room Air 04/25/22 04:45 71 135/75 (95) 94 Room Air 04/25/22 04:00 Room Air 04/25/22 03:45 71 25 104/73 (83) 92 Room Air 04/25/22 02:45 73 28 136/91 (106) 95 Room Air 04/25/22 01:45 74 28 129/90 (103) 95 Room Air 04/25/22 01:00 76 04/25/22 00:45 78 28 143/87 (105) 95 Room Air 04/25/22 00:00 Room Air 04/24/22 22:45 71 9 99/81 (87) 93 Room Air 04/24/22 21:45 101 9 126/77 (93) 97 Room Air 04/24/22 21:15 35.3 73 98 04/24/22 20:45 Room Air 04/24/22 20:45 118 17 113/95 (101) 96 Room Air 04/24/22 20:38 68 04/24/22 20:30 72 12 98/64 97 04/24/22 18:05 35.3 73 12 106/72 (83) 98 I & O 04/25/22 07:00 Intake Total 250 ml Output Total 200 ml Balance 50 ml Height & Weight Height: 6'1.00" Weight: 277lbs. 0.0oz. 125.713309sk; 29.93 BMI Method:Stated General Appearance: No Apparent Distress, WD/WN HEENT: Normal ENT Inspection, Pharynx Normal Neck: Normal Inspection, Non Tender, Supple Respiratory: Chest Non Tender, Lungs Clear, Normal Breath Sounds, No Accessory Muscle Use, No Respiratory Distress Cardiovascular: Regular Rate, Rhythm, No Edema, No Gallop, No JVD, No Murmur, N ormal Peripheral Pulses Extremity: Normal Capillary Refill, Normal Inspection, Normal Range of Motion, Non Tender, No Calf Tenderness Skin: Normal Color, Diaphoresis Lymphatic: No Adenopathy Other comments PE PER RN Results Lab Laboratory Tests 04/24/22 18:06 04/25/22 05:00 Assessment/Plan Assessment/Plan 1. Unstable angina 2. History of extensive coronary artery disease 3. Hypertension 4. Substance abuse including marijuana, tobacco and alcohol abuse. Recommendations 1. Continue morphine IV as needed for pain management 2. Cardiac catheterization this afternoon per cardiology 3. Advised her to quit's smoking and substance abuse. 4. Further treatment plan per cardiac cath report. Critical Care: Critically Ill Patient Time spent with patient (mins): 25 SONAL GALDAMEZ MD Apr 25, 2022 09:08
[2022-04-25] MEDS: CLOPIDOGREL 75 MG (PLAVIX) TABLET PO SCH (09:20)
[2022-04-25] MEDS: SENNOSIDES 8.6 MG (SENOKOT) TAB PO SCH ×2 (09:20→22:06)
[2022-04-25] MEDS: DOCUSATE SODIUM 100 MG (COLACE) CAP PO SCH ×2 (09:20→22:05)
--- NOTE | 2022-04-25 10:45 | Consultation-Cardiology ---
HPI-Cardiology Cardiology Consultation Date of Consultation 04/25/22 Date of Admission Time Seen by Provider: 09:08 Indication: Chest pain HPI 52 years old gentleman with extensive history of coronary artery disease, multiple intervention in the past Has been having recurrent chest pain, started to have worsening chest pain, came into the emergency room. Cardiac enzymes were negative, still having waxing and waning chest pain, admit having increasing dyspnea on exertion which is worsening significantly recently. No palpitation. No syncope. No claudications. Home Medications & Allergies Allergies: Coded Allergies: prednisone (Verified Allergy, Intermediate, RASH, 04/23/15) hydrocodone (Verified Allergy, Unknown, 04/23/15) venom-honey bee (Verified Allergy, Unknown, 04/23/15) Home Medication List Reviewed: Yes TAM-Anfkkr-Mhjsrj Hx Patient Social History Marital Status: Employed/Student: employed Drug of Choice: HX MARIJUANA Smoking Status: Former Smoker Former smoker/When Quit: Apr 07, 1999 Type Used: Cigarettes 2nd Hand Smoke Exposure: No Recent Hopitalizations: No Have you traveled recently?: No Alcohol Use?: No Immunizations Up To Date Tetanus Booster (TDap): Unknown Date of Pneumonia Vaccine: December 03, 2016 Date of Influenza Vaccine: May 19, 2020 Past Medical History Discussed below Family Medical History Significant Family History: Heart Disease, Cancer, Diabetes Family History: Brain cancer 19 FATHER Congestive heart failure 19 MOTHER Coronary artery disease 19 FATHER Diabetes mellitus 19 MOTHER Heart attack 19 FATHER 19 MOTHER Hypertension 19 FATHER 19 MOTHER Lung cancer 19 FATHER Review of Systems-General Review of Systems Constitutional: chills, diaphoresis EENTM: see HPI, no symptoms reported Respiratory: no symptoms reported, see HPI; No cough; dyspnea on exertion; No hemoptysis, No orthopnea, No phlegm; short of breath; No stridor, No wheezing, No other Cardiovascular: see HPI, chest pain; No edema, No Hx of Intervention, No palpitations, No syncope, No vascular heart diseas, No other Gastrointestinal: no symptoms reported, see HPI Genitourinary: no symptoms reported, see HPI Musculoskeletal: no symptoms reported Skin: no symptoms reported Psychiatric/Neurological: No Symptoms Reported Reviewed Test Results Reviewed Test Results Lab Laboratory Tests Test 04/24/22 18:06 04/25/22 05:00 04/25/22 08:10 Range/Units White Blood Count 6.1 4.9 4.3-11.0 10^3/uL Red Blood Count 4.51 4.13 L 4.30-5.52 10^6/uL Hemoglobin 12.7 L 11.6 L 13.3-17.7 g/dL Hematocrit 37 L 34 L 40-54 % Mean Corpuscular Volume 83 83 80-99 fL Mean Corpuscular Hemoglobin 28 28 25-34 pg Mean Corpuscular Hemoglobin Concent 34 34 32-36 g/dL Red Cell Distribution Width 13.1 13.0 10.0-14.5 % Platelet Count 221 165 130-400 10^3/uL Mean Platelet Volume 10.1 9.5 9.0-12.2 fL Immature Granulocyte % (Auto) 0 0 % Neutrophils (%) (Auto) 55 49 42-75 % Lymphocytes (%) (Auto) 27 36 12-44 % Monocytes (%) (Auto) 16 H 14 H 0-12 % Eosinophils (%) (Auto) 2 0 0-10 % Basophils (%) (Auto) 0 0 0-10 % Neutrophils # (Auto) 3.3 2.4 1.8-7.8 10^3/uL Lymphocytes # (Auto) 1.6 1.8 1.0-4.0 10^3/uL Monocytes # (Auto) 1.0 0.7 0.0-1.0 10^3/uL Eosinophils # (Auto) 0.1 0.0 0.0-0.3 10^3/uL Basophils # (Auto) 0.0 0.0 0.0-0.1 10^3/uL Immature Granulocyte # (Auto) 0.0 0.0 0.0-0.1 10^3/uL Prothrombin Time 18.0 H 12.2-14.7 SEC INR Comment 1.4 0.8-1.4 Activated Partial Thromboplast Time 42 H 24-35 SEC Sodium Level 137 138 135-145 MMOL/L Potassium Level 4.5 4.4 3.6-5.0 MMOL/L Chloride Level 98 101 98-107 MMOL/L Carbon Dioxide Level 23 22 21-32 MMOL/L Anion Gap 16 H 15 H 5-14 MMOL/L Blood Urea Nitrogen 21 H 22 H 7-18 MG/DL Creatinine 2.31 H 1.98 H 0.60-1.30 MG/DL Estimat Glomerular Filtration Rate 34 40 BUN/Creatinine Ratio 9 11 Glucose Level 114 H 80 70-105 MG/DL Calcium Level 9.6 8.8 8.5-10.1 MG/DL Corrected Calcium 8.7 8.5-10.1 MG/DL Magnesium Level 1.7 1.7 1.6-2.4 MG/DL Total Bilirubin 0.5 0.3 0.1-1.0 MG/DL Aspartate Amino Transf (AST/SGOT) 18 19 5-34 U/L Alanine Aminotransferase (ALT/SGPT) 15 15 0-55 U/L Alkaline Phosphatase 58 61 40-136 U/L Myoglobin 60.2 10.0-92.0 NG/ML Troponin I < 0.028 0.032 H <0.028 NG/ML Total Protein 8.1 7.2 6.4-8.2 GM/DL Albumin 4.6 H 4.1 3.2-4.5 GM/DL Phosphorus Level 5.2 H 2.3-4.7 MG/DL Triglycerides Level 221 H <150 MG/DL Cholesterol Level 164 < 200 MG/DL LDL Cholesterol Direct 102 1-129 MG/DL VLDL Cholesterol 44 H 5-40 MG/DL HDL Cholesterol 20 L 40-60 MG/DL D-Dimer < 0.27 0.00-0.49 UG/ML Physical Exam Physical Exam Vital Signs Vital Signs - First Documented 04/24/22 18:05 Temp 35.3 Pulse 73 Resp 12 B/P (MAP) 106/72 (83) Pulse Ox 98 Capillary Refill : Height, Weight, BMI Height: 6'1.00" Weight: 277lbs. 0.0oz. 125.800425kp; 29.93 BMI Method:Stated General Appearance: No Apparent Distress, WD/WN Eyes: Bilateral Eye Normal Inspection, Bilateral Eye PERRL, Bilateral Eye EOMI HEENT: Normal ENT Inspection, Pharynx Normal Neck: Normal Inspection, Non Tender, Supple Respiratory: Chest Non Tender, Lungs Clear, Normal Breath Sounds, No Accessory Muscle Use, No Respiratory Distress Cardiovascular: Regular Rate, Rhythm, No Edema, No Gallop, No JVD, No Murmur, Normal Peripheral Pulses Gastrointestinal: Normal Bowel Sounds, No Organomegaly, No Pulsatile Mass, Non Tender, Soft Back: Normal Inspection, No CVA Tenderness, No Vertebral Tenderness Extremity: Normal Capillary Refill, Normal Inspection, Normal Range of Motion, Non Tender, No Calf Tenderness Neurologic/Psychiatric: Alert, Oriented x3, No Motor/Sensory Deficits, Normal Mood/Affect Skin: Normal Color, Diaphoresis Lymphatic: No Adenopathy A/P-Cardiology Admission Diagnosis Unstable angina Coronary artery disease Hypertension Hyperlipidemia Assessment/Plan Chest pain, accelerating angina, extensive cardiac history EKG showing minimal nondiagnostic changes, cardiac enzymes are negative, Due to his extensive history and classic symptoms I recommended cardiac catheterization possible PTCA. Procedure was explained in length to the patient all pros and cons were explained. We will proceed with the procedure today. Coronary artery disease, history of CABG 5 done in 2008, history of 4 stents, last 2 stents were placed in 2012. Cardiac catheterization was done on April 26, 2015 with successful balloon angioplasty for 90 percent in-stent restenosis in the right posterior descending artery. Distal right PDA had 80 percent stenosis, very small artery not amendable to intervention. Patent stent in the proximal circumflex artery. Occluded stent in the obtuse marginal branch. Occluded LAD a with known patent REYES to LAD. Repeat cardiac catheterization was done in February [address] Joseph as occlusion of the LAD, ostial occlusion of the proximal OM, 80 percent stenosis at the distal small right PDA, left to left and [id number] collateral filling the OM system, 2 occluded vein graft presumably to the OM and right coronary artery, patent REYES to LAD, patient has significant disease in the distal LAD. Cardiac catheterization with Dr. Evangelista July 2016 with successful percutaneous revascularization of severe PDA branch disease with 2.5 x 32 mm Promus drug-eluting stent, and a 2.25 x 12 mm Promus drug-eluting stent to the PDA. Cardiac catheterization was done after having an abnormal stress test on February 06, [address] Shanks which showed patent REYES to LAD, known occluded vein graft, severe [place] coronary artery disease, normal FFR to the circumflex artery, severely reduced FFR to the right PDA was successful balloon angioplasty using 2.530 mm balloon with good results. Cardiac catheterization was repeated on December 03, 2018 showing severe instent restenosis in the right posterior descending branch had significant stenosis, underwent Emerge balloon angioplasty using 2.5 x 20 mm expanded to 2.7 mm and her high pressure with good results, moderate disease in the midright coronary artery treated medically, patent stent in the circumflex artery with occluded obtuse marginal branch and the vein graft to the obtuse marginal branch, occluded LAD and patent REYES to LAD, there are 2 other vein grafts one of them to the obtuse marginal branch and probably the other one to the right coronary artery were occluded. Cardiac catheterization done July 06, 2020 revealing severe in-stent resteosis in the right PDA with successful balloon angioplasty using 2.5x20 mm balloon with excellent results. Patent REYES to LAD, patent stent in rajan prox LAD with borderline lesion proximal to the stent 50-60% stenosis. mod disease in the circumflex artery, known occluded 2 vein grafts. This is cardiac catheterization done in August 2020 showing severe in-stent restenosis of the overlapping stent of the right PDA with noncompliant balloon angioplasty using 2.5 x 20 mm with multiple inflation and resolution of the restenosis completely, patent stent in the proximal circumflex artery followed by a moderate stenosis which will be monitored, occluded LAD at the midportion with patent REYES to LAD with small LAD tapering down at the anastomosis point and beyond into small vessel with diffuse disease, known occluded 2 vein grafts. Cardiac catheterization was carried out in December 2020 showing severe recurrent in- stent restenosis in the right PDA, balloon angioplasty using 2.5 x 20 mm trek balloon expanded under 17 gurjit to 2.75 with excellent results, occluded obtuse marginal branch and vein graft to the obtuse marginal branch, patent REYES to LAD with small vessel disease. Mild diffuse left ventricular hypokinesia. Stress test was done in December 2020 showing diaphragmatic attenuation with reversible ischemia involving the whole inferior wall and inferolateral wall and anterolateral wall with transient ischemic dilatation 1.26, stress score 19, SDS 6, ejection fraction 31%, underwent cardiac catheterization after stress test I am planning to proceed with cardiac catheterization possible PTCA Echocardiogram done on January 15, 2020 showing normal left ventricular size, EF 55-65 percent, aortic valve thickening, peak gradient 28 mmHg mean gradient 40 mmHg, valve area 1.4 cm, better than the study of June 2019, PA pressure 30-35 mmHg. Repeat echo done [id number] echo was done on December 18, 2020 showing normal left ventricular size, ejection fraction 45 to 40%, prominent right heart chambers, left atrium is mildly dilated, moderate MR. Reported by Dr. Shanks History of CVA, maintained on Xarelto History of PAF/aflutter, currently in sinus rhythm, maintained on Xarelto. Congestive heart failure, last echo in January 2020 showed improvement of EF of 55- 65 percent. Continue to monitor Mild to moderate aortic valve stenosis, valve area 1.4 cm by echo in January 2020. Continue to monitor Hypertension, well controlled, reporting occasional episodes of low blood pressure. Restart home medication monitor blood pressure Hyperlipidemia, maintained on Vascepa and Lipitor, lipid profile was done on December 03, 2021 showing total cholesterol 191, HDL 25, triglyceride 306, LDL 122. Continue to monitor Recurrent palpitation, short-lived, associated with some chest pain, better after increasing beta blockers. Continue to monitor Mild bilateral carotid stenosis, ultrasound was done in September 2020, I will evaluate carotid ultrasound Diabetes mellitus, followed and managed by primary care physician History of COPD, c/o increased dyspnea recently. Requesting to f/u with pulmonology. I will schedule him with Dr. Dillon for further evaluation. History of sleep apnea, patient reports noncompliance with CPAP and no longer has it, not using C Pap machine. Morbid obesity, BMI 29. Educated on weight loss Depression, difficult to control, was hospitalized in July, feeling better at this time Family history of heart disease Clinical Quality Measures AMI/AHF: ASA po Prior to arrival: Yes ([phone]) JAMEEL PIMENTEL MD Apr 25, 2022 10:45
[2022-04-25] MEDS ORDERED: HEParin (CATH LAB) 2,000 ML IV ONE (11:06)
[2022-04-25] MEDS ORDERED: LIDOCAINE 1% INJ 20 ML VIAL ONE (11:06)
--- NOTE | 2022-04-25 11:49 | History & Physical-Hospitalist ---
JUAN DAVID HAYS 04/25/22 1149: History of Present Illness HPI/Chief Complaint Patient is a 52 year old male with past medical history of HTN, CAD, prior AZ with multiple stents, and CABG, presented to the emergency department for chest pain on 04-24-2022. He had symptoms 3 days constantly. He describes pain as a intense pressure diffusely over his left pectoralis with an area of exquisite pain about 3 cm in diameter in center of left pectoralis. He says pain was worse with exertion. It has been constant. He does not report any trauma to area. He reported taking 12 nitorglycerin tabs in 24 hours with minimal relief. Pain did not radiate, he denied any fever or vomiting. Has had some mild chills and diaphoresis. He has had symptoms like this before his other AZ, but says this pain has been more constant and greater in intensity. In the ER he was found to have ST depression in V1-V6, no ST elevation. Troponin was not elevated. His creatinine was elevated at 2.3, reports he sees nephrology in [place]. He had an x-ray done on 04-24-2022 which showed no acute cardiopulmonary process. Patient was subsequently admitted 04-24-2022, for observation. He says he no longer smokes cigarettes, no longer drink alcohol. He does smoke marijuana occasionally, and denies any recent recreational drug use. Last night during his stay his nitroglycerin was discontinued due to hypotension. Patient is currently on xarelto and plavix due to his prior strokes. Patient was given morphine to help with his pain, which he reports only mildly alleviated his chest pain. This morning he is alert and orientated, his only complaint is his chest pain. He is ambulating well, and bowels have been moving appropriately. Cardiology was consulted and plans to perform cardiac catheterization today 04-25-2022. Source: patient, RN/MD Date Seen 04/25/22 Attending Physician Marta Lauren MD PCP Admitting Physician: Norma Rondon DO Attending Physician: Norma Rondon DO Referring Physician Date of Admission Apr 24, 2022 at 19:40 Home Medications & Allergies Home Medications Reviewed patient Home Medication Reconciliation performed by pharmacy medication reconciliations ecologist technician and/or nursing. Patients Allergies have been reviewed. Allergies Allergies Coded Allergies prednisone (Verified Allergy, Intermediate, RASH, 04/23/15) hydrocodone (Verified Allergy, Unknown, 04/23/15) venom-honey bee (Verified Allergy, Unknown, 04/23/15) Past Yygbcwo-Sdwygu-Hseezw Hx Patient Social History Marrital Status: Employed/Student: employed Tobacco Use?: No Smoking Status: Former Smoker Use of E-Cig and/or Vaping dev: No Substance use?: No Alcohol Use?: No Pt feels they are or have been: No Immunizations Up To Date Date of Influenza Vaccine: May 19, 2020 Tetanus Booster (TDap): Unknown Hepatitis A: No Hepatitis B: No PED Vaccines UTD: No Date of Pneumonia Vaccine: December 03, 2016 Seasonal Allergies Seasonal Allergies: Yes Current Status Advance Directives: No Communicates: Verbally Primary Language: Romanian Preferred Spoken Language: Romanian Is interpretation needed?: No Implanted or Applied Medical D: Stents Past Medical History Surgeries: Angioplasty, CABG, Coronary Stent COPD, Emphysema Currently Using CPAP: Yes (doesnt use it ) Currently Using BIPAP: No Atrial Fibrillation, Coronary Artery Disease, Heart Attack, High Cholesterol, H ypertension Stroke, TIA Sexually Transmitted Disease: No HIV/AIDS: No Gastroesophageal Reflux Chronic Back Pain, Spasms Diabetes, Non-Insulin dep Eye Injury, Double Vision Loss of Vision: Right Hearing Impairment: Denies Sleep Difficulties, Anxiety, Suicide Attempts, Depression Blood Disorders: No Adverse Reaction/Blood Tranf: No Coronary artery disease DM NARGIS Obesity Family Medical History Reviewed Nursing Family Hx Brain cancer 19 FATHER Congestive heart failure 19 MOTHER Coronary artery disease 19 FATHER Diabetes mellitus 19 MOTHER Heart attack 19 FATHER 19 MOTHER Hypertension 19 FATHER 19 MOTHER Lung cancer 19 FATHER Heart Disease, Cancer, Diabetes SOCIAL HISTORY: -ETOH--HEAVY USE BY HISTORY, NOW OCCASIONAL USE -DRUGS--COCAINE AND THC IN PAST, DENIES IV DRUG USE -SMOKED 1 1/2 PPD, QUIT 20 YEARS AGO PAST SURGICAL HISTORY: -ULNAR DECOMPRESSION -CYST REMOVAL -EGD/COLONOSCOPY/POLYPECTOMY -CABG 5 VESSEL AT AGE 39 -MULTIPLE CARDIAC CATHS, WITH 6-7 STENTS AND MULTIPLE ANGIOPLASTIES -CARDIAC CATH 07/06/20- BY DR. PIMENTEL CONCLUSION: 1. Severe in-stent restenosis at the overlapping stents of the right PDA, successful intervention using noncompliant balloon with high pressure 2.5 x 20 mm with multiple inflation with resolution of the restenosis completely 2. Patent stent in the proximal circumflex artery followed by moderate stenosis, it will be monitored. Known occluded obtuse marginal branches 3. Occluded LAD at the midportion, patent REYES to the LAD with small LAD tapering down after the anastomosis with diffuse disease, not amendable to intervention due to the size of the artery 4. Known to have occluded 2 vein grafts 4. Mildly elevated left ventricular end-diastolic pressure Review of Systems Constitutional: chills, diaphoresis, weakness EENTM: no symptoms reported Respiratory: short of breath Cardiovascular: No edema; Hx of Intervention Gastrointestinal: No abdominal pain Genitourinary: No dysuria, No pain Musculoskeletal: No back pain, No joint swelling Skin: No change in color, No change in hair/nails Psychiatric/Neurological: Anxiety; Denies Numbness, Denies Paresthesia Physical Exam Physical Exam Vital Signs Vital Signs - First Documented 04/24/22 18:05 Temp 35.3 Pulse 73 Resp 12 B/P (MAP) 106/72 (83) Pulse Ox 98 Capillary Refill : Height, Weight, BMI Height: 6'1.00" Weight: 277lbs. 0.0oz. 125.031595uz; 29.93 BMI Method:Stated General Appearance: No Apparent Distress, Obese HEENT: PERRL/EOMI; No Scleral Icterus (L), No Scleral Icterus (R) Neck: Full Range of Motion, Normal Inspection Respiratory: No Chest Non Tender (Chest tender to palpation); Lungs Clear Cardiovascular: Regular Rate, Rhythm, No Edema, No Gallop Gastrointestinal: Non Tender, Soft Rectal: Deferred Back: Normal Inspection, No CVA Tenderness Extremity: Normal Capillary Refill, Normal Inspection, Normal Range of Motion Neurologic/Psychiatric: Alert, Oriented x3, Normal Mood/Affect Skin: Normal Color, Warm/Dry Lymphatic: No Adenopathy Results Results/Procedures Labs Laboratory Tests 04/24/22 18:06 04/25/22 05:00 Patient resulted labs reviewed. Assessment/Plan Assessment and Plan Unstable angina/Chest Pain Cardiology consulted Scheduled for Cardiac catheterzation today (04-25-2022) Monitor telemetry and monitor troponin Morphine administered Repeat X-ray ordered Continue supportive care LUISA Monitor Hypotension Evaluate after cardiac cath Continue Supportive Care Acute Hypotension Nitroglycerin held CAD HTN Continue home medications (metoprolol and lisinopril) Hyperlipidemia Continue with atorvastatin Monitor Lipids History of CVA Continue on Xarelto History of prior AZ and stent/CABG Last Cardiac Cath was 2020 showing severe recurrent in-stent restenosis in the right PDA, balloon angioplasty using 2.5 x 20 mm trek balloon expanded under 17 gurjit to 2.75 with excellent results, occluded obtuse marginal branch and vein graft to the obtuse marginal branch, patent REYES to LAD with small vessel disease. Mild diffuse left ventricular hypokinesia. Last stress test in 2020 done in December 2020 showing diaphragmatic attenuation with reversible ischemia involving the whole inferior wall and inferolateral wall and anterolateral wall with transient ischemic dilatation 1.26, stress score 19, SDS 6, ejection fraction 31%, underwent cardiac catheterization after stress test CHF Prior echo in January 2020 showed improvement of EF of 55-65 percent. Continue to monitor COPD Nebulizer albuterol treatments ordered if needed Continue with home montelukast Anxiety Ativan ordered- administer if necessary DM-Non insulin dependent Continue at home meds (metformin) Mild Bilateral Carotid Stenosis Cardiology will re-evaluate prior US Clinical Quality Measures AMI/AHF: ASA po Prior to arrival: Yes ([phone]) NORMA RONDON DO 04/25/222058: History of Present Illness HPI/Chief Complaint CC: Chest pain HPI: This is a 52 yr old male with extensive heart history completing bypass and multiple stents. He presented with chest pain and unstable angina. He was placed in the ICU. Ordered nitroglycerin drip in case chest pain continued. Pt will have cardiac catheterization today. Source: patient, RN/MD Time Seen by a Provider: 10:00 Past Qsmnaut-Eheguc-Wlrfff Hx Patient Social History Marrital Status: single Past Medical History Surgeries: CABG, Coronary Stent Family Medical History Brain cancer 19 FATHER Congestive heart failure 19 MOTHER Coronary artery disease 19 FATHER Diabetes mellitus 19 MOTHER Heart attack 19 FATHER 19 MOTHER Hypertension 19 FATHER 19 MOTHER Lung cancer 19 FATHER Review of Systems Constitutional: see HPI Cardiovascular: chest pain Physical Exam Physical Exam General Appearance: No Apparent Distress Eyes: Right Eye Normal Inspection, Right Eye PERRL HEENT: PERRL/EOMI, TMs Normal, Normal ENT Inspection, Pharynx Normal, Moist Mucous Membranes Neck: Full Range of Motion, Normal Inspection, Non Tender Respiratory: Chest Non Tender, Lungs Clear, Normal Breath Sounds, No Accessory Muscle Use, No Respiratory Distress Cardiovascular: Regular Rate, Rhythm, No Edema, No Gallop, No JVD, No Murmur, Normal Peripheral Pulses Gastrointestinal: Normal Bowel Sounds, No Organomegaly, No Pulsatile Mass, Non Tender, Soft Back: Normal Inspection, No CVA Tenderness, No Vertebral Tenderness Extremity: Normal Capillary Refill, Normal Inspection, Normal Range of Motion, Non Tender, No Calf Tenderness, No Pedal Edema Neurologic/Psychiatric: Alert, Oriented x3, No Motor/Sensory Deficits, Normal Mood/Affect Skin: Normal Color, Warm/Dry Lymphatic: No Adenopathy Assessment/Plan Admission Diagnosis Unstable angina Admission Status: Observation Supervisory-Addendum Brief Verification & Attestation Participated in pt care: history, MDM, physical Personally performed: exam, history, MDM, supervision of care Care discussed with: Medical Student Procedures: n/a Results interpretation: Verified all documentation Verification and Attestation of Medical Student E/M Service A medical student performed and documented this service in my presence. I reviewed and verified all information documented by the medical student and made modifications to such information, when appropriate. I personally performed the physical exam and medical decision making. Norma Rondon Apr 25, 2022,20:59 JUAND AVID HAYS Apr 25, 2022 11:49 NORMA RONDON DO Apr 25, 2022 20:59
[2022-04-25] MEDS ORDERED: METF-865 PO (14:16)
[2022-04-25] MEDS ORDERED: ONDA8TAB13 PO (14:16)
[2022-04-25] MEDS ORDERED: HYDR-3781 PO (14:16)
[2022-04-25] MEDS ORDERED: ATOR80TA76 PO (14:16)
[2022-04-25] MEDS ORDERED: ISOS60TA63 PO (14:16)
[2022-04-25] MEDS ORDERED: RANO10005 PO (14:16)
[2022-04-25] MEDS ORDERED: fentaNYL INJ 100 MCG/2 ML AMP ONE (15:08)
[2022-04-25] MEDS ORDERED: NS IV 1000 ML 1,000 ML ONE (15:09)
[2022-04-25] MEDS ORDERED: MIDAZOLAM 2 MG/2 ML (VERSED) VIAL ONE (15:09)
--- NOTE | 2022-04-25 15:19 | Cardiac Procedure Note-CS/ASA ---
Pre-Procedure Note Pre-Op Procedure Note Date of Available H&P: Apr 25, 2022 Date H&P Reviewed: Apr 25, 2022 Time H&P Reviewed: 15:19 History & Physical: H&P Reviewed, Patient Examed, No changes noted Pre-Operative Diagnosis: chest pain, coronary artery disease Conscious Sedation Pre-Proced Time 15:19 ASA Score 3 For ASA 3 and 4: Consider anesthesia and medical clearance. Also, for patients with a history of failed moderate sedation consider anesthesia. Airway Lungs Heart ASA score ASA 1: a normal healthy patient ASA 2: a patient with a mild systemic disease (mid diabetes, controlled hypertension, obesity ASA 3: a patient with a severe systemic disease that limits activity (angina, COPD, prior Myocardial infarction) ASA 4: a patient with an incapacitating disease that is a constant threat to life (CHF, renal failure) ASA 5: a moribund patient not expected to survive 24 hrs. (ruptured aneurysm) ASA 6: a declared brain- patient whose organs are being harvested. For emergent operations, add the letter E after the classification Mallampati Classification Grade 3 Sedation Plan Analgesia, Amnesia, Plan communicated to team members, Discussed options with patient/fam, Discussed risks with patient/fam The patient is an appropriate candidate to undergo the planned procedure, sedation, and anesthesia. The patient immediately re-assessed prior to indication. JAMEEL PIMENTEL MD Apr 25, 2022 15:19
[2022-04-25] MEDS ORDERED: HEParin 1000 UNIT/ML (10ML VIAL) FOR BOLUS ONE (15:44)
[2022-04-25] MEDS ORDERED: ASPIRIN 325 MG (5 GR) TABLET ONE (16:00)
[2022-04-25] MEDS ORDERED: CLOPIDOGREL 300 MG (PLAVIX) TABLET PO ONE (16:00)
--- NOTE | 2022-04-25 16:07 | Cardiac Cath Report ---
Cardiac Cath Report Physician (s)/As[employer] (s) Physician JAMEEL PIMENTEL MD Pre-Procedure Diagnosis Pre-Procedure Diagnosis: chest pain, coronary artery disease Post-Procedure Note Procedure Start Date: Apr 25, 2022 Name of Procedure: Left heart catheterization REYES angiogram PTCA to the right PDA Findings/Procedure Note PROCEDURE NOTE: 52 years old gentleman with history of coronary artery disease, CABG, admitted with unstable angina, scheduled for cardiac catheterization possible PTCA. After explaining the procedure to the patient, all pros and cons were explained, all questions were answered. The patient signed the consent and then he was placed on the cardiac catheterization laboratory. Groin was prepped SL fashion local anesthesia was used. Sheath placed in the right femoral artery. Leodan right and left catheter were used to access the coronary system. Leodan right was prolapsed to the left ventricular cavity, pressure was measured, Leodan right was used to access the REYES, REYES angiogram was done. Patient is known to have occluded vein graft. It was not evaluated on the study. Patient received 5000 units of heparin, FIR guide was advanced to the right coronary artery, BMW wire was advanced and parked distally, noncompliant 2.5 x 20 mm balloon was used for the severe in-stent restenosis in the mid right PDA, excellent results with no residual stenosis At the end of the procedure the sheath was removed. Closure device was deployed FINDINGS: Hemodynamics LV 105/6, end-diastolic pressure of 6 Aorta 121/75 mean of 86 ANATOMY: Left Main is free of obstructive disease Left Anterior Descending is occluded distally with patent REYES to LAD Left Circumflex is small artery with severe mid circumflex stenosis, the obtuse marginal branches are occluded and vein graft to the OM is occluded Right Coronary Artery is dominant artery with with severe in-stent restenosis in the right PDA successful balloon angioplasty with excellent results LV Gram was not done, pressure was measured CONCLUSION: 1. Patent REYES to LAD, known occluded vein grafts 2. Severe in-stent restenosis in the right PDA with successful balloon angioplasty with excellent results DISCUSSION AND RECOMMENDATION: Continue to maximize medical Anesthesia Type: Conscious Sedation Estimated blood loss (mL): 20 ml Contrast Amount: 26 ml Total Radiation Dose: 576 mGy Post-Procedure Diagnosis Post-operative diagnosis: Unstable angina Coronary artery disease Hypertension Hyperlipidemia JAMEEL PIMENTEL MD Apr 25, 2022 16:07
[2022-04-25] MEDS ORDERED: PATIENT MAY USE OWN MEDS, ALL PO SCH (16:15)
[2022-04-25] MEDS: NS IV 1000 ML 1,000 ML IV SCH (16:47)
[2022-04-25] MEDS ORDERED: NON-FORMULARY MEDICATION 1 EA EA (Ranolazine (Ranolazine ER) 1,000 MG) PO SCH (17:00)
[2022-04-25] MEDS ORDERED: MECLIZINE 25 MG (ANTIVERT) TAB PO PRN (17:00)
[2022-04-25] MEDS ORDERED: GABAPENTIN 300 MG (NEURONTIN) CAP PO PRN (17:00)
[2022-04-25] MEDS ORDERED: RIVAROXABAN 20 MG TABLET (XARELTO) PO SCH (18:00)
[2022-04-25] MEDS: RIVAROXABAN 20 MG TABLET (XARELTO) PO SCH (18:57)
[2022-04-25] MEDS: ANTACID SUSP 30 ML UDC (MYLANTA) PO PRN (18:57)
[2022-04-25] MEDS: ONDANSETRON 4 MG/2 ML (SDV) Z0FRAN IV PRN (18:59)
[2022-04-25] MEDS: ICOSAPENT ETHYL 1 GM PO SCH (21:00)
[2022-04-25] MEDS: PANTOPRAZOLE 40 MG (PROTONIX) TAB PO SCH (22:05)
[2022-04-25] MEDS: meTOproloL SUCCINATE 50 MG (TOPROL XL) TAB PO SCH (22:05)
[2022-04-25] MEDS: NITRO DRIP 25000 MCG/D5W 250 ML IV SCH (22:06)
[2022-04-25] MEDS: RANOLAZINE ER 500 MG TAB (RANEXA) PO SCH (22:06)
[2022-04-26] MEDS: NS IV 1000 ML 1,000 ML IV SCH ×3 (05:03→15:25)
[2022-04-26 05:11] LABS: BASOPHILS % (AUTO) 0 % (0-10); EOSINOPHILS % (AUTO) 1 % (0-10); HEMATOCRIT 34 % (40-54); HEMOGLOBIN 11.5 g/dL (13.3-17.7); LYMPHOCYTES # (AUTO) 1.8 10^3/uL (1.0-4.0); LYMPHOCYTES % (AUTO) 47 % (12-44); MEAN CORPUSCULAR HEMOGLOBIN 28 pg (25-34); MEAN CORPUSCULAR HGB CONC 34 g/dL (32-36); MEAN CORPUSCULAR VOLUME 84 fL (80-99); MONOCYTES # (AUTO) 0.4 10^3/uL (0.0-1.0); MONOCYTES % (AUTO) 10 % (0-12); NEUTROPHILS # (AUTO) 1.6 10^3/uL (1.8-7.8); NEUTROPHILS % (AUTO) 42 % (42-75); PLATELET COUNT 159 10^3/uL (130-400); WHITE BLOOD COUNT 3.9 10^3/uL (4.3-11.0)
[2022-04-26 05:27] LABS: ALBUMIN 3.9 GM/DL (3.2-4.5); POTASSIUM 4.2 MMOL/L (3.6-5.0)
[2022-04-26 05:28] LABS: CALCIUM 8.5 MG/DL (8.5-10.1)
[2022-04-26 05:32] LABS: BILIRUBIN,TOTAL 0.3 MG/DL (0.1-1.0)
[2022-04-26 05:33] LABS: CREATININE SERUM 1.42 MG/DL (0.60-1.30); PHOSPHORUS 4.2 MG/DL (2.3-4.7)
[2022-04-26 05:36] LABS: MAGNESIUM 1.8 MG/DL (1.6-2.4)
[2022-04-26] MEDS ORDERED: METF-865 PO (06:40)
--- NOTE | 2022-04-26 06:41 | Discharge Inst-Post CATH ---
Discharge Inst-CATH/EP Problems Reviewed?: Yes Post Cardiac Cath/EP D/C Inst Follow Up/Plan Hold Metformin for [address] Fitzgerald in 2 weeks <b>CARDIAC CATH/EP PROCEDURE DISCHARGE INSTRUCTIONS</b> ACTIVITY * Go Home directly and rest. * Limit activity of the leg (or wrist if it was used) for 7 days including aerobics, swimming, jogging, bicycling, etc. * Restrict stair-climbing for 7 days if possible, if not, climb up with your non-cath leg, then bring together on the same step. * Avoid lifting, pushing, pulling or excessive movement of the affected extremity for 7 days. * Customary sexual activity may be resumed after 2 days-use caution not to use a position that strains or causes pain to the affected extremity. * No driving for 24 hours. * NO SMOKING. * Avoid straining for bowel movements for 7 days. * Gentle walking on level ground is allowed. * Returning to work will depend on the type of procedure and the results. Your doctor will discuss this with you. CALL YOUR DOCTOR FOR ANY OF THE FOLLOWING: *If bleeding from the puncture site occurs- Apply gentle pressure to site with clean cloth and call your doctor or EMS. * If a knot or lump forms under the skin, increases in size, or causes pain. * If bruising appears to be worsening or moving further down your leg instead of disappearing. * Temperature above 101 F. CARE OF YOUR GROIN INCISION; * Bruising or purple discoloration of the skin near the puncture site is common. * You may shower only, no bathtub bathing for 5 days. Be careful to avoid slipping as your leg may feel stiff. * If a closure device was used on your femoral artery, please see the attached guide regarding care of the device and your leg. * Leave dressing on FOR 24 hours. CARE OF YOUR WRIST INCISION; * Bruising or purple discoloration of the skin near the puncture site is common. * You may shower. * DO NOT submerge wrist. * Leave dressing on FOR 24 hours. JAMEEL FITZGERALD MD Apr 26, 2022 06:41
--- NOTE | 2022-04-26 07:37 | Diagnostic Imaging Report ---
INDICATION: Chest pain. Comparison is made with prior exam of 04/25/2022. FINDINGS: The heart size, mediastinal configuration, and pulmonary vascularity are within normal limits. There is no pleural effusion, pneumothorax, or pneumonia. The osseous structures are unremarkable. There has been a previous median sternotomy. IMPRESSION: No acute cardiopulmonary abnormality. Dictated by: Dictated on workstation # [id number]
[2022-04-26] MEDS: KCL 20 MEQ TAB (K-DUR) PO SCH (08:14)
[2022-04-26] MEDS: MAGNESIUM 1 GM/100 ML IVPB 100 ML IV SCH (08:14)
[2022-04-26] MEDS: POTASSIUM CL 10MEQ/50ML IVPB 50 ML IV SCH (08:14)
[2022-04-26] MEDS: ONDANSETRON 4 MG/2 ML (SDV) Z0FRAN IV PRN (08:15)
[2022-04-26] MEDS: meTOproloL SUCCINATE 50 MG (TOPROL XL) TAB PO SCH ×2 (08:17→20:25)
[2022-04-26] MEDS: DOCUSATE SODIUM 100 MG (COLACE) CAP PO SCH ×2 (08:17→21:00)
[2022-04-26] MEDS: RANOLAZINE ER 500 MG TAB (RANEXA) PO SCH ×2 (08:17→20:25)
[2022-04-26] MEDS: CLOPIDOGREL 75 MG (PLAVIX) TABLET PO SCH (08:17)
[2022-04-26] MEDS: SENNOSIDES 8.6 MG (SENOKOT) TAB PO SCH ×2 (08:17→21:00)
[2022-04-26] MEDS: ISOSORBIDE MONONITRATE 60 MG (IMDUR) TAB PO SCH (08:17)
[2022-04-26] MEDS: ICOSAPENT ETHYL 1 GM PO SCH ×2 (08:18→21:57)
--- NOTE | 2022-04-26 08:34 | Cardiology Progress Note ---
Subjective Date Seen by Provider: Apr 26, 2022 Time Seen by Provider: 08:29 Subjective/Events-last exam Patient was seen at bedside, laying down comfortably, having difficulty urinating. No chest pain. Review of Systems General: No Chills, No Night Sweats, No Fatigue, No Malaise, No Appetite, No Other HEENT: No Head Aches, No Visual Changes, No Eye Pain, No Ear Pain, No Dysphasia, No Sinus Congestion, No Post Nasal Drip, No Sore Throat, No Other Pulmonary: No Dyspnea, No Cough, No Pleuritic Chest Pain, No Other Cardiovascular: No: Chest Pain, Palpitations, Orthopnea, Paroxysmal Noc. Dyspnea, Edema, Lt Headedness, Other Objective-Cardiology Exam Last Set of Vital Signs Vital Signs 04/26/22 04/26/22 04/26/22 06:00 07:00 07:40 Temp 36.2 Pulse 79 Resp 22 B/P (MAP) 144/62 (89) Pulse Ox 95 O2 Delivery Room Air I&O Intake and Output 04/26/22 00:00 Intake Total 3640 ml Output Total 1300 ml Balance 2340 ml Intake Oral 1440 ml IV Total 2200 ml Output Urine Total 1300 ml # Voids 2 General: Alert, Oriented X3, Cooperative HEENT: Atraumatic, PERRLA Neck: Supple, No JVD, No Thyromegaly Lungs: Clear to Auscultation, Normal Air Movement Heart: Regular Rate, Normal S1, Normal S2, No Murmurs Abdomen: Normal Bowel Sounds, Soft, No Tenderness, No Hepatosplenomegaly, No Masses Extremities: No Clubbing, No Cyanosis, No Edema, Normal Pulses, No Tenderness/Swelling Skin: No Rashes, No Breakdown, No Significant Lesion Neuro: Normal Gait, Normal Speech, Strength at 5/5 X4 Ext, Normal Tone, Sensation Intact Psych/Mental Status: Mental Status NL, Mood NL Results Lab Laboratory Tests 04/26/22 04:40 A/P-Cardiology Admission Diagnosis Unstable angina Coronary artery disease Hypertension Hyperlipidemia Assessment/Plan Chest pain, accelerating angina Cardiac catheterization was done with balloon angioplasty for in-stent restenosis of the right PDA.. Coronary artery disease, history of CABG 5 done in 2008, history of 4 stents, last 2 stents were placed in 2012. Cardiac catheterization was done on April 26, 2015 with successful balloon angioplasty for 90 percent in-stent restenosis in the right posterior descending artery. Distal right PDA had 80 percent stenosis, very small artery not amend able to intervention. Patent stent in the proximal circumflex artery. Occluded stent in the obtuse marginal branch. Occluded LAD a with known patent REYES to LAD. Repeat cardiac catheterization was done in February [address] Joseph as occlusion of the LAD, ostial occlusion of the proximal OM, 80 percent stenosis at the distal small right PDA, left to left and [id number] collateral filling the OM system, 2 occluded vein graft presumably to the OM and right coronary a rtery, patent REYES to LAD, patient has significant disease in the distal LAD. Cardiac catheterization with Dr. Evangelista July 2016 with successful percutaneous revascularization of severe PDA branch disease with 2.5 x 32 mm Promus drug-eluting stent, and a 2.25 x 12 mm Promus drug-eluting stent to the PDA. Cardiac catheterization was done after having an abnormal stress test on February 06, [address] Shanks which showed patent REYES to LAD, known occluded vein graft, severe [place] coronary artery disease, normal FFR to the circumflex artery, severely reduced FFR to the right PDA was successful balloon angioplasty using 2.530 mm balloon with good results. Cardiac catheterization was repeated on December 03, 2018 showing severe instent re stenosis in the right posterior descending branch had significant stenosis, underwent Emerge balloon angioplasty using 2.5 x 20 mm expanded to 2.7 mm and her high pressure with good results, moderate disease in the midright coronary artery treated medically, patent stent in the circumflex artery with occluded obtuse marginal branch and the vein graft to the obtuse marginal branch, occluded LAD and patent REYES to LAD, there are 2 other vein grafts one of them to the obtuse marginal branch and probably the other one to the right coronary artery were occluded. Cardiac catheterization done July 06, 2020 revealing severe in-stent resteosis in the right PDA with successful balloon angioplasty using 2.5x20 mm balloon with excellent results. Patent REYES to LAD, patent stent in rajan prox LAD with borderline lesion proximal to the stent 50-60% stenosis. mod disease in the circumflex artery, known occluded 2 vein grafts. This is cardiac catheterization done in August 2020 showing severe in-stent restenosis of the overlapping stent of the right PDA with noncompliant balloon angioplasty using 2.5 x 20 mm with multiple inflation and resolution of the restenosis completely, patent stent in the proximal circumflex artery followed by a moderate stenosis which will be monitored, occluded LAD at the midportion with patent REYES to LAD with small LAD tapering down at the anastomosis point and beyond into small vessel with diffuse disease, known occluded 2 vein grafts. Cardiac catheterization was carried out in December 2020 showing severe recurrent in- stent restenosis in the right PDA, balloon angioplasty using 2.5 x 20 mm trek balloon expanded under 17 gurjit to 2.75 with excellent results, occluded obtuse marginal branch and vein graft to the obtuse marginal branch, patent REYES to LAD with small vessel disease. Mild diffuse left ventricular hypokinesia. Stress test was done in December 2020 showing diaphragmatic attenuation with reversible ischemia involving the whole inferior wall and inferolateral wall and anterolateral wall with transient ischemic dilatation 1.26, stress score 19, SDS 6, ejection fraction 31%, underwent cardiac catheterization after stress test Status post cardiac catheterization done on April 25, 2022, occluded distal LAD with patent REYES to LAD, known occluded vein grafts. Severe stenosis in Super[place] circumflex artery about 1 mm in diameter. Severe in-stent restenosis in the right PDA with successful balloon angioplasty using noncompliant 2.5 x 20 mm balloon with excellent results. Continue on aspirin and Plavix Dysuria, patient having difficulty urinating. Managed by primary care physician Echocardiogram done on January 15, 2020 showing normal left ventricular size, EF 55-65 percent, aortic valve thickening, peak gradient 28 mmHg mean gradient 40 mmHg, valve area 1.4 cm, better than the study of June 2019, PA pressure 30 -35 mmHg. Repeat echo done [id number] echo was done on December 18, 2020 showing normal left ventricular size, ejection fraction 45 to 40%, prominent right heart chambers, left atrium is mildly dilated, moderate MR. Reported by Dr. Shanks History of CVA, maintained on Xarelto History of PAF/aflutter, currently in sinus rhythm, maintained on Xarelto. Congestive heart failure, last echo in January 2020 showed improvement of EF of 55- 65 percent. Continue to monitor Mild to moderate aortic valve stenosis, valve area 1.4 cm by echo in January 2020. Continue to monitor Hypertension, well controlled, reporting occasional episodes of low blood pressure. Restart home medication monitor blood pressure Hyperlipidemia, maintained on Vascepa and Lipitor, lipid profile was done on December 03, 2021 showing total cholesterol 191, HDL 25, triglyceride 306, LDL 122. Continue to monitor Recurrent palpitation, short-lived, associated with some chest pain, better after increasing beta blockers. Continue to monitor Mild bilateral carotid stenosis, ultrasound was done in September 2020, I will evaluate carotid ultrasound Diabetes mellitus, followed and managed by primary care physician History of COPD, c/o increased dyspnea recently. Requesting to f/u with pulmonology. I will schedule him with Dr. Dillon for further evaluation. History of sleep apnea, patient reports noncompliance with CPAP and no longer has it, not using C Pap machine. Morbid obesity, BMI 29. Educated on weight loss Depression, difficult to control, was hospitalized in July, feeling better at this time Family history of heart disease JAMEEL PIMENTEL MD Apr 26, 2022 08:34
[2022-04-26 08:38] LABS: BILIRUBIN,URINE NEGATIVE (NEGATIVE); CLARITY,URINE CLEAR; COLOR,URINE YELLOW; GLUCOSE, URINE (UA) NEGATIVE (NEGATIVE); KETONES,URINE NEGATIVE (NEGATIVE); LEUKOCYTE ESTERASE ,URINE NEGATIVE (NEGATIVE); NITRITE,URINE NEGATIVE (NEGATIVE); PH,URINE 5.5 (5-9); PROTEIN,URINE NEGATIVE (NEGATIVE)
[2022-04-26 08:53] LABS: BACTERIA,URINE NEGATIVE /HPF; SQUAMOUS EPITHELIAL CELL,UR RARE /HPF
[2022-04-26] MEDS ORDERED: CLOPIDOGREL 75 MG (PLAVIX) TABLET PO SCH (09:00)
--- NOTE | 2022-04-26 11:17 | Tele-ICU Progress Note ---
Subjective Date Seen by a Provider: Apr 26, 2022 Time Seen by a Provider: 11:11 Subjective/Events-last exam Tele-ICU Physician , progress note) Available chart/ vitals / labs / Images reviewed H&P is from ER notes Patient's information available about PMH, allergy reviewed in EMR. ROS as per chart and RN report Video assessment done using teleICU camera, rest of exam as per RN Discussed with RN. He is a 52-year-old male with a past medical history of extensive coronary artery disease status post bypass surgery at age 39 followed by 6 stent placements in the coronary artery due to recurrent ischemic indices now presented with recurrent chest pain located in the left side of the sternum whi ch is basically heaviness and occasional sharp pain in the left parasternal area. Denies any nausea or vomiting. Initial troponin is normal however subsequent troponin slightly elevated. EKG revealed T wave inversions in the anterolateral leads. He did not tolerate any for over nitroglycerin in the hospital due to low blood pressure. Hence he is being given morphine as needed basis which is helping transiently reducing his chest pain by 50% but not completely. He was evaluated by the cardiology service and is scheduled for cardiac catheterization this afternoon. Now his blood pressure is slightly better. He has a history of. Alcohol abuse and tobacco abuse 04/26/22 he underwent cardiac cath .and found to have instent stenosis of rt pda and had angioplsty. Now had very minimal chest pain. Started on Ranexa. Review of Systems ROS PER RN Sepsis Event Evaluation Height, Weight, BMI Height: 6'1.00" Weight: 277lbs. 0.0oz. 125.145507ur; 29.93 BMI Method:Stated Exam Exam Patient acknowledged, consented, and participated in this virtual visit which was conducted using real time audio/video Vital Signs Date Time Temp Pulse Resp B/P (MAP) Pulse Ox O2 Delivery O2 Flow Rate FiO2 04/26/22 11:00 90 116/80 (92) Room Air 04/26/22 10:00 84 143/83 (103) Room Air 04/26/22 09:00 84 136/88 (104) Room Air 04/26/22 08:00 86 20 145/85 (105) 96 Room Air 04/26/22 07:45 94 Room Air 04/26/22 07:40 36.2 04/26/22 07:00 84 20 144/89 (107) 96 Room Air 04/26/22 07:00 79 04/26/22 06:00 99 22 144/62 (89) 95 Room Air 04/26/22 05:00 82 9 144/87 (106) 96 Room Air 04/26/22 04:00 94 Room Air 04/26/22 04:00 81 12 123/77 (92) 94 Room Air 04/26/22 03:00 89 10 127/76 (93) 92 Room Air 04/26/22 02:00 82 18 135/60 (85) 96 Room Air 04/26/22 01:23 85 04/26/22 01:00 84 17 134/83 (100) 95 Room Air 04/26/22 00:00 87 10 135/77 (96) 97 Room Air 04/26/22 00:00 94 Room Air 04/25/22 23:00 91 16 146/116 (126) 91 Room Air 04/25/22 22:00 85 20 135/82 (99) 95 Room Air 04/25/22 21:00 92 17 127/75 (92) 91 Room Air 04/25/22 20:14 35.1 79 13 94 Room Air 04/25/22 20:00 94 Room Air 04/25/22 20:00 90 19 118/95 (103) 96 Room Air 04/25/22 19:09 36.3 87 22 140/81 (100) 99 Room Air 04/25/22 19:00 93 04/25/22 19:00 93 28 135/77 (96) 98 Room Air 04/25/22 18:10 35.6 94 26 141/91 (108) 97 Room Air 04/25/22 17:00 94 24 153/84 (107) 91 Room Air 04/25/22 16:20 94 Room Air 04/25/22 16:00 96 28 168/90 (116) 91 Room Air 04/25/22 14:00 78 15 148/96 (113) 92 Room Air 04/25/22 13:00 79 04/25/22 13:00 83 25 127/88 (101) 95 Room Air 04/25/22 12:00 76 29 133/100 (111) 92 Room Air 04/25/22 12:00 98 Room Air 04/25/22 11:56 37.1 I & O 04/26/22 07:00 Intake Total 4940 ml Output Total 2900 ml Balance 2040 ml Height & Weight Height: 6'1.00" Weight: 277lbs. 0.0oz. 125.299716my; 29.93 BMI Method:Stated General Appearance: No Apparent Distress HEENT: PERRL/EOMI, TMs Normal, Normal ENT Inspection, Pharynx Normal, Moist Mucous Membranes Neck: Full Range of Motion, Normal Inspection, Non Tender Respiratory: Chest Non Tender, Lungs Clear, Normal Breath Sounds, No Accessory Muscle Use, No Respiratory Distress Cardiovascular: Regular Rate, Rhythm, No Edema, No Gallop, No JVD, No Murmur, Normal Peripheral Pulses Capillary Refill: Less Than 3 Seconds Extremity: Normal Capillary Refill, Normal Inspection, Normal Range of Motion, Non Tender, No Calf Tenderness, No Pedal Edema Neurologic/Psychiatric: Alert, Oriented x3, No Motor/Sensory Deficits, Normal Mood/Affect Skin: Normal Color, Warm/Dry Lymphatic: No Adenopathy Results Lab Laboratory Tests 04/24/22 18:06 04/25/22 05:00 04/26/22 04:40 Assessment/Plan Assessment/Plan 1. Unstable angina due to in-stent stenosis of rt pda. 2. History of extensive coronary artery disease 3. Hypertension 4. Substance abuse including marijuana, tobacco and alcohol abuse. Recommendations 1. started on ranexa. had angioplasty of rt pda in stent stenosis. 2. Cardiac catheterization report reviewed 3. Advised her to quit's smoking and substance abuse. 4. Discharge plan per cardiology. Critical Care: Critically Ill Patient (15) SONAL GALDAMEZ MD Apr 26, 2022 11:17
[2022-04-26] MEDS: BETHANECHOL 10 MG (URECHOLINE) TAB PO SCH ×3 (11:26→20:25)
[2022-04-26] MEDS: TAMSULOSIN 0.4 MG (FLOMAX) CAP PO SCH ×2 (11:27→20:25)
[2022-04-26] MEDS: ASPIRIN E.C. 81 MG (ECOTRIN) TAB PO SCH (11:27)
[2022-04-26] MEDS: eZETimibe 10 MG (ZETIA) TABLET PO SCH (11:28)
--- NOTE | 2022-04-26 11:51 | Physical Therapy Evaluation ---
PT Evaluation-General Medical Diagnosis Admission Date Apr 24, 2022 at 19:40 Medical Diagnosis: chest pain Onset Date: Apr 24, 2022 Therapy Diagnosis Therapy Diagnosis: debility Height/Weight Height (Feet): 6 Height (Inches): 1.00 Weight (Pounds): 277 Weight (Ounces): 0.0 Precautions Precautions/Isolations: Fall Prevention, Standard Precautions Referral Physician: Charity Reason for Referral: Evaluation/Treatment Medical History Pertinent Medical History: Atrial Fib, Alcoholism, CABG, CAD, COPD, CVA, DM, HTN, Smoking History of Falls (past yr): No Prior Surgery (last 100 days): No Current History ER secondary to CP/s/p heart cath Reviewed History: Yes Social History Home: Single Level Current Living Status: Spouse Entry Into Home: Stairs With Railing PT Steps Into Home: 2 Prior Prior Level of Function SCALE: Activities may be completed with or without assistive devices. 3-Orcgeswgpc-dxpyslu completes the activity by him/herself with no assistance from a helper. 5-Set-up or Clean-up Assistance-helper sets up or cleans up; patient completes activity. Velva assists only prior to or following the activity. 4-Supervision or Touching Assistance-helper provides verbal cues and/or touching/steadying and/or contact guard assistance as patient completes activity. Assistance may be provided throughout the activity or intermittently. 3-Partial/Moderate Assistance-helper does LESS THAN HALF the effort. Velva lifts, holds or supports trunk or limbs, but provides less than half the effort. 2-Substantial/Maximal Assistance-helper does MORE THAN HALF the effort. Velva lifts or holds trunk or limbs and provides more than half the effort. 0-Jaqcrmfib-ramblw does ALL the effort. Patient does none of the effort to complete the activity. Or, the assistance of 2 or more helpers is required for the patient to complete the activity. If activity was not attempted, code reason: 7-Patient Refused. 9-Not Applicable-not attempted and the patient did not perform the activity before the current illness, exacerbation or injury. 10-Not Attempted due to Environmental Limitations-(lack of equipment, weather restraints, etc.). 88-Not Attempted due to Medical Conditions or Safety Concerns. Bed Mobility: 6 Transfers (B,C,W/C): 6 Gait: 6 Stairs: 6 Indoor Mobility (Ambulation): Independent Stairs: Independent Prior Devices Use: None PT Evaluation-Current Subjective Patient dons underwear and tennis shoes independently. Patient does state,"I just don't feel good." Agrees to PT. Objective Patient Orientation: Normal For Age Attachments: IV ROM/Strength ROM Lower Extremities bilateral LE WFL Strength Lower Extremities 5/5 grossly bilateral LE Integumentary/Posture Integumentary refer to nursing notes Bowel Incontinence: No Bladder Incontinence: No Posture WFL Neuromuscular (Tone, Coordination, Reflexes) grossly intact Sensory Vision: Functional Hearing: Functional Transfers Lying to Sitting/Side of Bed(Q: 6 Sit to Stand (QC): 6 Chair/Qui-uz-Tyigo Xfer(QC): 6 Gait Mode of Locomotion: Walk Anticipated Mode of Locomotion: Walk Walk 10 feet (QC): 6 Walk 50 ft with 2 Turns(QC): 6 Walk 150 ft (QC): 6 Distance: 300' Gait Assistive Device: None Comments/Gait Description safe and functional with no deviation Balance Sitting Static: Normal Sitting Dynamic: Normal Standing Static: Normal Standing Dynamic: Normal Assessment/Needs During session, patient had episode of c/o lightheadedness with RN retrieving a w/c for patient to sit. Patient wheeled back to room for RN to assess. HR, BP and SAO2 WFL. Patient is currently at independent [facility] with all gross motor skills and does not require skilled PT intervention. Rehab Potential: Fair PT Plan Treatment/Plan Treatment Plan: Discontinue PT, goals met Treatment Duration: Apr 26, 2022 Frequency: 1 time per week Estimated Hrs Per Day: .25 hour per day Patient and/or Family Agrees t: Yes Time/GCodes Time In: 1110 Time Out: 1121 Total Billed Treatment Time: 11 Total Billed Treatment 1 visit [facility] 11 min MATTHEW PORTILLO PT Apr 26, 2022 11:51
[2022-04-26 14:11] VITALS: BP 116/80
--- NOTE | 2022-04-26 14:51 | Progress Note - Hospitalist ---
JUAN DAVID HAYS 04/26/22 1451: Subjective HPI/CC On Admission Date Seen by Provider: Apr 26, 2022 Time Seen by Provider: 14:41 CC: Chest pain HPI: This is a 52 yr old male with extensive heart history completing bypass and multiple stents. He presented with chest pain and unstable angina. He was placed in the ICU. Ordered nitroglycerin drip in case chest pain continued. Pt will have cardiac catheterization today. Subjective/Events-last exam Patient has improved angina, but still present Patient is complaining of urinary retention. No obstruction seen Patient feeling worse than he has with prior cardiac caths. Cath was succesful Catheter insertion site healing well States he feels general malaise Cleared from cadiology standpoint for discharge Objective Exam Vital Signs Vital Signs Date Time Temp Pulse Resp B/P (MAP) Pulse Ox O2 Delivery O2 Flow Rate FiO2 04/26/22 14:11 36.2 79 94 04/26/22 14:00 120/81 (94) Room Air 04/26/22 08:00 20 Capillary Refill : Less Than 3 Seconds General Appearance: Anxious, Mild Distress HEENT: PERRL/EOMI; No Scleral Icterus (L), No Scleral Icterus (R) Neck: Full Range of Motion, Normal Inspection Respiratory: No Chest Non Tender; Lungs Clear, No Respiratory Distress; No Accessory Muscle Use Cardiovascular: Regular Rate, Rhythm, No Edema, No Gallop Gastrointestinal: Normal Bowel Sounds, Non Tender, Soft Rectal: Deferred Genital/Rectal: Normal Genital Exam Back: Normal Inspection, No CVA Tenderness Extremity: Normal Capillary Refill, Normal Inspection, Normal Range of Motion Neurologic/Psychiatric: Alert, Oriented x3, Normal Mood/Affect Skin: Normal Color, Warm/Dry Lymphatic: No Adenopathy Results/Procedures Lab Laboratory Tests 04/26/22 04:40 Patient resulted labs reviewed. Assessment/Plan Assessment and Plan Assess & Plan/Chief Complaint S/P Cardiac Catheterization Performed on . Results: Patent REYES to LAD, known occluded vein grafts Severe in-stent restenosis in the right PDA with successful balloon angioplasty with excellent results Continue with Plavix Urinary Retention Administer Flomax Administer Urecholine Consult PT and OT Unstable angina/Chest Pain Cardiology consulted Monitor telemetry and monitor troponin Morphine administered Continue supportive care LUISA Monitor Hypotension Evaluate after cardiac cath Continue Supportive Care Acute Hypotension Nitroglycerin held CAD HTN Continue home medications (metoprolol and lisinopril) Hyperlipidemia Continue with atorvastatin Monitor Lipids History of CVA Continue on Xarelto History of prior [place] and stent/CABG Last Cardiac Cath was 2020 showing severe recurrent in-stent restenosis in the right PDA, balloon angioplasty using 2.5 x 20 mm trek balloon expanded under 17 gurjit to 2.75 with excellent results, occluded obtuse marginal branch and vein graft to the obtuse marginal branch, patent REYES to LAD with small vessel disease. Mild diffuse left ventricular hypokinesia. Last stress test in 2020 done in December 2020 showing diaphragmatic attenuation with reversible ischemia involving the whole inferior wall and inferolateral wall and anterolateral wall with transient ischemic dilatation 1.26, stress score 19, SDS 6, ejection fraction 31%, underwent cardiac catheterization after stress test CHF Prior echo in January 2020 showed improvement of EF of 55-65 percent. Continue to monitor COPD Nebulizer albuterol treatments ordered if needed Continue with home montelukast Anxiety Ativan ordered- administer if necessary DM-Non insulin dependent Continue at home meds (metformin) Mild Bilateral Carotid Stenosis Cardiology will re-evaluate prior US Clinical Quality Measures AMI/AHF: ASA po Prior to arrival: Yes ([phone]) NORMA RONDON DO 04/27/22 0529: Subjective Subjective/Events-last exam Mild urinary retention requiring bladder meds Does not feel well and patient was swabbed and it is positive for COVID Objective Exam General Appearance: No Apparent Distress, WD/WN, Chronically ill, Obese Assessment/Plan Assessment and Plan Assess & Plan/Chief Complaint COVID-positive Urinary retention management Supervisory-Addendum Brief Verification & Attestation Participated in pt care: history, MDM, physical Personally performed: exam, history, MDM, supervision of care Care discussed with: Medical Student Procedures: n/a Results interpretation: Verified all documentation Verification and Attestation of Medical Student E/M Service A medical student performed and documented this service in my presence. I reviewed and verified all information documented by the medical student and made modifications to such information, when appropriate. I personally performed the physical exam and medical decision making. Norma Rondon Apr 27, 2022,05:28 JUAN DAVID HAYS Apr 26, 2022 14:51 NORMA RONDON DO Apr 27, 2022 05:29
[2022-04-26] MEDS: RT-ALBUTEROL HFA 8.5 GM INHALER IH PRN (16:59)
[2022-04-26] MEDS: RIVAROXABAN 20 MG TABLET (XARELTO) PO SCH (18:02)
[2022-04-26] MEDS: busPIRone 10 MG (BUSPAR) TAB PO SCH ×2 (18:02→20:25)
[2022-04-26] MEDS: PANTOPRAZOLE 40 MG (PROTONIX) TAB PO SCH (20:25)
[2022-04-26] MEDS: ANTACID SUSP 30 ML UDC (MYLANTA) PO PRN (20:25)
[2022-04-26] MEDS: NITRO DRIP 25000 MCG/D5W 250 ML IV SCH (21:00)
[2022-04-26] MEDS ORDERED: RT-ALBUTEROL HFA 8.5 GM INHALER IH SCH (21:00)
[2022-04-27] MEDS: NS IV 1000 ML 1,000 ML IV SCH (01:29)
[2022-04-27] MEDS: ONDANSETRON 4 MG/2 ML (SDV) Z0FRAN IV PRN (02:07)
[2022-04-27 05:10] LABS: BASOPHILS % (AUTO) 0 % (0-10); EOSINOPHILS # (AUTO) 0.1 10^3/uL (0.0-0.3); EOSINOPHILS % (AUTO) 2 % (0-10); HEMATOCRIT 30 % (40-54); HEMOGLOBIN 10.1 g/dL (13.3-17.7); LYMPHOCYTES # (AUTO) 1.7 10^3/uL (1.0-4.0); LYMPHOCYTES % (AUTO) 44 % (12-44); MEAN CORPUSCULAR HEMOGLOBIN 28 pg (25-34); MEAN CORPUSCULAR HGB CONC 34 g/dL (32-36); MEAN CORPUSCULAR VOLUME 82 fL (80-99); MEAN PLATELET VOLUME 9.8 fL (9.0-12.2); MONOCYTES # (AUTO) 0.4 10^3/uL (0.0-1.0); MONOCYTES % (AUTO) 10 % (0-12); NEUTROPHILS # (AUTO) 1.6 10^3/uL (1.8-7.8); NEUTROPHILS % (AUTO) 43 % (42-75); PLATELET COUNT 134 10^3/uL (130-400); WHITE BLOOD COUNT 3.8 10^3/uL (4.3-11.0)
[2022-04-27 05:34] LABS: ALBUMIN 3.4 GM/DL (3.2-4.5); BILIRUBIN,TOTAL 0.3 MG/DL (0.1-1.0); CALCIUM 8.2 MG/DL (8.5-10.1); CREATININE SERUM 1.31 MG/DL (0.60-1.30); MAGNESIUM 1.6 MG/DL (1.6-2.4); PHOSPHORUS 3.2 MG/DL (2.3-4.7); POTASSIUM 4.3 MMOL/L (3.6-5.0); TOTAL PROTEIN 6.2 GM/DL (6.4-8.2)
[2022-04-27] MEDS: KCL 20 MEQ TAB (K-DUR) PO SCH (06:22)
[2022-04-27] MEDS: POTASSIUM CL 10MEQ/50ML IVPB 50 ML IV SCH (06:22)
[2022-04-27] MEDS: MAGNESIUM 1 GM/100 ML IVPB 100 ML IV SCH ×3 (06:22→09:27)
[2022-04-27] MEDS ORDERED: traZODone 100 MG (DESYREL) TAB PO PRN (06:30)
[2022-04-27] MEDS ORDERED: FLUTICASONE/VILANTEROL 200 MCG 14'S (BREO) IH PRN (06:30)
[2022-04-27] MEDS ORDERED: NITROGLYCERIN 0.4 MG SL TABS BTL 25'S SL PRN (06:30)
[2022-04-27] MEDS ORDERED: RT-ALBUTEROL SULF 2.5 MG/3 ML PRE-MIX VIAL INH PRN (06:30)
[2022-04-27] MEDS ORDERED: hydrOXYzine (VISTARIL/ATARAX) 25 MG capsule/tablet PO PRN (06:30)
[2022-04-27] MEDS: BETHANECHOL 10 MG (URECHOLINE) TAB PO SCH ×2 (06:47→11:09)
[2022-04-27] MEDS ORDERED: BACLOFEN 10 MG (LIORESAL) TAB PO PRN (07:00)
[2022-04-27] MEDS: RT-ALBUTEROL HFA 8.5 GM INHALER IH PRN (07:54)
[2022-04-27] MEDS: SENNOSIDES 8.6 MG (SENOKOT) TAB PO SCH (09:28)
[2022-04-27] MEDS: CLOPIDOGREL 75 MG (PLAVIX) TABLET PO SCH (09:28)
[2022-04-27] MEDS: ISOSORBIDE MONONITRATE 60 MG (IMDUR) TAB PO SCH (09:28)
[2022-04-27] MEDS: TAMSULOSIN 0.4 MG (FLOMAX) CAP PO SCH (09:28)
[2022-04-27] MEDS: busPIRone 10 MG (BUSPAR) TAB PO SCH ×2 (09:28→13:00)
[2022-04-27] MEDS: meTOproloL SUCCINATE 50 MG (TOPROL XL) TAB PO SCH (09:28)
[2022-04-27] MEDS: RANOLAZINE ER 500 MG TAB (RANEXA) PO SCH (09:28)
[2022-04-27] MEDS: DOCUSATE SODIUM 100 MG (COLACE) CAP PO SCH (09:28)
[2022-04-27] MEDS: ICOSAPENT ETHYL 1 GM PO SCH (09:29)
[2022-04-27] MEDS ORDERED: PROPOFOL DRIP (ICU) 0 ML IV ONE (09:40)
--- NOTE | 2022-04-27 09:41 | Cardiology Progress Note ---
Progress Note-Cardiology Events since last exam Date Seen by Provider: Apr 27, 2022 Time Seen by Provider: 09:39 Events since last exam We are following him due to NSTEMI. This was felt to be due to severe in-stent restenosis of the right coronary artery that was treated with balloon angioplasty only. On 04/26 he had a walking oximetry test and desaturation. The staff then swabbed him for COVID which came back positive. He is now in isolation. I did speak to them from the doorway. His presenting symptom had been chest pain. He denies any further chest pain since the angioplasty. His breathing is improved. He denies palpitations, syncope, or ankle edema. Prior to admission, he had been taking aspirin, clopidogrel and Xarelto. Certain portions of this document may have been dictated utilizing voice recognition technology. Inherent to this technology, typographical and grammatical errors may exist. As much as I am diligent to identify and correct these mistakes, some errors may remain in the document. Vitals Last set of Vitals Signs Vital Signs 04/27/22 04/27/22 11:59 12:00 Temp 36.0 Pulse 68 Resp 21 B/P (MAP) 127/77 (94) Pulse Ox 94 O2 Delivery Room Air Labs Labs Laboratory Tests 04/27/22 04:59 Exam Vital Signs Vital Signs Date Time Temp Pulse Resp B/P (MAP) Pulse Ox O2 Delivery O2 Flow Rate FiO2 04/27/22 12:00 68 21 127/77 (94) 94 Room Air 04/27/22 11:59 36.0 Physical Exam Due to the patient's COVID status, I spoke with the patient from the doorway. General: The patient is breathing spontaneously. He was sitting up in bed eating breakfast. HENT: Normocephalic. Atraumatic. Skin: There is no pallor. No apparent peripheral edema. Neurologic: Oriented x3. Cranial nerves III through XII grossly intact. Moving all 4 extremities. Psychiatric: Appears cooperative. Labs Laboratory Tests Test 04/26/22 16:04 04/26/22 20:33 04/27/22 04:59 04/27/22 06:55 Range/Units Glucometer 117 H 142 H 87 70-110 MG/DL White Blood Count 3.8 L 4.3-11.0 10^3/uL Red Blood Count 3.60 L 4.30-5.52 10^6/uL Hemoglobin 10.1 L 13.3-17.7 g/dL Hematocrit 30 L 40-54 % Mean Corpuscular Volume 82 80-99 fL Mean Corpuscular Hemoglobin 28 25-34 pg Mean Corpuscular Hemoglobin Concent 34 32-36 g/dL Red Cell Distribution Width 12.8 10.0-14.5 % Platelet Count 134 130-400 10^3/uL Mean Platelet Volume 9.8 9.0-12.2 fL Immature Granulocyte % (Auto) 0 % Neutrophils (%) (Auto) 43 42-75 % Lymphocytes (%) (Auto) 44 12-44 % Monocytes (%) (Auto) 10 0-12 % Eosinophils (%) (Auto) 2 0-10 % Basophils (%) (Auto) 0 0-10 % Neutrophils # (Auto) 1.6 L 1.8-7.8 10^3/uL Lymphocytes # (Auto) 1.7 1.0-4.0 10^3/uL Monocytes # (Auto) 0.4 0.0-1.0 10^3/uL Eosinophils # (Auto) 0.1 0.0-0.3 10^3/uL Basophils # (Auto) 0.0 0.0-0.1 10^3/uL Immature Granulocyte # (Auto) 0.0 0.0-0.1 10^3/uL Sodium Level 137 135-145 MMOL/L Potassium Level 4.3 3.6-5.0 MMOL/L Chloride Level 105 98-107 MMOL/L Carbon Dioxide Level 22 21-32 MMOL/L Anion Gap 10 5-14 MMOL/L Blood Urea Nitrogen 11 7-18 MG/DL Creatinine 1.31 H 0.60-1.30 MG/DL Estimat Glomerular Filtration Rate 66 BUN/Creatinine Ratio 8 Glucose Level 109 H 70-105 MG/DL Calcium Level 8.2 L 8.5-10.1 MG/DL Corrected Calcium 8.7 8.5-10.1 MG/DL Phosphorus Level 3.2 2.3-4.7 MG/DL Magnesium Level 1.6 1.6-2.4 MG/DL Total Bilirubin 0.3 0.1-1.0 MG/DL Aspartate Amino Transf (AST/SGOT) 15 5-34 U/L Alanine Aminotransferase (ALT/SGPT) 13 0-55 U/L Alkaline Phosphatase 52 40-136 U/L Total Protein 6.2 L 6.4-8.2 GM/DL Albumin 3.4 3.2-4.5 GM/DL Diagnosis/Problems Diagnosis/Problems (1) Non-ST elevation myocardial infarction (NSTEMI), initial care episode Assessment & Plan: No recurrent angina. He was treated with balloon angioplasty to the right coronary artery for in-stent restenosis. He has been on prolonged triple antiplatelet/anticoagulant therapy. 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 He should continue on beta-stephanie and statin medication. He is also on long-acting nitrates and ranolazine for antianginal medication. From a cardiac standpoint, he can be discharged home once his noncardiac issues are improved. (2) Paroxysmal atrial fibrillation Assessment & Plan: He has a reported history of paroxysmal atrial fibrillation. He has been in sinus rhythm. He has been on beta-stephanie for rate control and rivaroxaban for stroke prophylaxis. One might consider stopping aspirin and continuing clopidogrel for his coronary artery disease since he needs the rivaroxaban for the atrial fibrillation. 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 (3) Primary hypertension Assessment & Plan: Blood pressure has been reasonably controlled with the present medication. (4) Mixed hyperlipidemia Assessment & Plan: Continue high-dose atorvastatin as well as ezetimibe. (5) Acute kidney injury superimposed on chronic kidney disease Assessment & Plan: This was present at the time of admission and prior to his cardiac catheterization. This has improved. I will stop his IV fluids. VEE SINGLETON JR, MD Apr 27, 2022 09:41
[2022-04-27] MEDS: ASPIRIN E.C. 81 MG (ECOTRIN) TAB PO SCH (11:08)
[2022-04-27] MEDS: eZETimibe 10 MG (ZETIA) TABLET PO SCH (11:08)
[2022-04-27] MEDS: ONDANSETRON 4 MG (ZOFRAN) ORAL DISSOLVE TAB PO PRN (11:09)
[2022-04-27] MEDS ORDERED: MONTELUKAST 10 MG (SINGULAIR) TAB PO SCH (12:00)
--- NOTE | 2022-04-27 12:02 | Discharge Summary ---
Discharge Summary Hospital Course Was the Problem List Reviewed?: Yes Problems/Dx: (1) Non-ST elevation myocardial infarction (NSTEMI), initial care episode (2) Paroxysmal atrial fibrillation (3) Primary hypertension (4) Mixed hyperlipidemia (5) Acute kidney injury superimposed on chronic kidney disease Hospital Course Date of Admission: Apr 24, 2022 at 19:40 Admission Diagnosis : Family Physician/Provider: Marta Lauren MD Date of Discharge: 04/27/22 Discharge Diagnosis: [ ] Hospital Course: Patient is a 52 year old male with past medical history of HTN, CAD, prior [place] with multiple stents, and CABG, presented to the emergency department for chest pain on 04-24-2022. He had symptoms 3 days constantly. He describes pain as a intense pressure diffusely over his left pectoralis with an area of exquisite pain about 3 cm in diameter in center of left pectoralis. He says pain was worse with exertion. It has been constant. He does not report any trauma to area. He reported taking 12 nitorglycerin tabs in 24 hours with minimal relief. Pain did not radiate, he denied any fever or vomiting. Has had some mild chills and diaphoresis. He has had symptoms like this before his other [place], but says this pain has been more constant and greater in intensity. In the ER he was found to have ST depression in V1-V6, no ST elevation. Troponin was not elevated. His creatinine was elevated at 2.3, reports he sees nephrology in [place]. He had an x-ray done on 04-24-2022 which showed no acute cardiopulmonary process. Patient was subsequently admitted 04-24-2022, for observation. He says he no longer smokes cigarettes, no longer drink alcohol. He does smoke marijuana occasionally, and denies any recent recreational drug use. Last night during his stay his nitroglycerin was discontinued due to hypotension. Patient is currently on xarelto and plavix due to his prior strokes. Patient was given morphine to help with his pain, which he reports only mildly alleviated his chest pain. The morning of 04-25-2022, he was alert and orientated, his only complaint was is his chest pain. He was ambulating well, and bowels had been moving appropriate ly. Cardiology was consulted and performed cardiac catheterization today 04-25-2022, which was successful. Results of cath: Patent REYES to LAD, known occluded vein graft severe in-stent restenosis in the right PDA with successful balloon angioplasty with excellent results. On 04-26-2022 patient was found to be alert and orientated, but had complaints of angina and urinary retention. His catheter incision site was healing well. He was given Tamsulosin. Patient was taken by PT to walk around the ICU and began having near syncopal episodes and had to return to bed and started to feel general malaise. He was swabbed for COVID and was found to be positive. He was also later started back on his Ranexa and Imdur. This morning 04-27-2022 patient was found to have improved angina with is medications back on board. His urinary retention was resolved. His only compliant was nausea and dizziness upon standing. He feels his strength is returning and able to return home. JUAN DAVID HAYS Labs and Pending Lab Test: Laboratory Tests 04/26/22 12:20: Influenza Type A (RT-PCR) Not Detected, Influenza Type B (RT-PCR) Not Detected, SARS-CoV-2 RNA (RT-PCR) DetectedH 04/26/22 16:04: Glucometer 117H 04/26/22 20:33: Glucometer 142H 04/27/22 04:59: White Blood Count 3.8L, Red Blood Count 3.60L, Hemoglobin 10.1L, Hematocrit 30L, Mean Corpuscular Volume 82, Mean Corpuscular Hemoglobin 28, Mean Corpuscular Hemoglobin Concent 34, Red Cell Distribution Width 12.8, Platelet Count 134, Mean Platelet Volume 9.8, Immature Granulocyte % (Auto) 0, Neutrophils (%) (Auto) 43, Lymphocytes (%) (Auto) 44, Monocytes (%) (Auto) 10, Eosinophils (%) (Auto) 2, Basophils (%) (Auto) 0, Neutrophils # (Auto) 1.6L, Lymphocytes # (Auto) 1.7, Monocytes # (Auto) 0.4, Eosinophils # (Auto) 0.1, Basophils # (Auto) 0.0, Immature Granulocyte # (Auto) 0.0, Sodium Level 137, Potassium Level 4.3, Chloride Level 105, Carbon Dioxide Level 22, Anion Gap 10, Blood Urea Nitrogen 11, Creatinine 1.31H, Estimat Glomerular Filtration Rate 66, BUN/Creatinine Ratio 8, Glucose Level 109H, Calcium Level 8.2L, Corrected Calcium 8.7, Phosphorus Level 3.2, Magnesium Level 1.6, Total Bilirubin 0.3, Aspartate Amino Transf (AST/SGOT) 15, Alanine Aminotransferase (ALT/SGPT) 13, Alkaline Phosphatase 52, Total Protein 6.2L, Albumin 3.4 04/27/22 06:55: Glucometer 87 Microbiology 04/24/22 MRSA Screen - Final, Complete MRSA not isolated Home Meds Active Metformin HCl ER (Metformin HCl) 500 Mg Tab.er.24h 1,000 Mg PO BID WITH MEALS Hold Metformin for 48 hours Reported Hydroxyzine Pamoate 25 Mg Capsule 25 Mg PO BID PRN Isosorbide Mononitrate ER (Isosorbide Mononitrate) 60 Mg Tab 60 Mg PO DAILY Ranolazine ER (Ranolazine) 1,000 Mg Tab.er.12h 1,000 Mg PO Q12H Atorvastatin Calcium 80 Mg Tablet 80 Mg PO HS Ondansetron Odt (Ondansetron) 8 Mg Tab.rapdis 8 Mg PO Q8H PRN Ezetimibe 10 Mg Tablet 10 Mg PO 1200 Pantoprazole Sodium 40 Mg Tablet.dr 40 Mg PO HS Clopidogrel (Clopidogrel Bisulfate) 75 Mg Tablet 75 Mg PO DAILY Montelukast Sodium 10 Mg Tablet 10 Mg PO 1200 Trintellix (Vortioxetine Hydrobromide) 20 Mg Tablet 20 Mg PO 1800 Aspirin EC (Aspirin) 81 Mg Tablet.dr 81 Mg PO 1200 Baclofen 20 Mg Tablet 20 Mg PO TID PRN Tylenol Extra Strength (Acetaminophen) 500 Mg Tablet 1,000 Mg PO Q6H PRN Metoprolol Succinate 50 Mg Tab.er.24h 50 Mg PO BID Breo Ellipta 200-25 Mcg INH (Fluticasone/Vilanterol) 200 Mcg-25 Mcg/Dose Blst.w.dev 1 Each IH DAILY PRN Nitroglycerin 0.4 Mg Tab.subl 0.4 Mg SL UD PRN Neurontin (Gabapentin) 300 Mg Capsule 300 Mg PO TID PRN Ventolin Hfa (Albuterol Sulfate) 18 Gm Hfa.aer.ad 2 Puff INH Q6H PRN Trazodone HCl 100 Mg Tablet 100 Mg PO HS PRN Meclizine HCl 25 Mg Tablet 25 Mg PO TID PRN Vascepa (Icosapent Ethyl) 1 Gm Capsule 2 Gm PO BID TAKES 2 (1GM) CAPSULES Buspirone HCl 10 Mg Tablet 20 Mg PO TID TAKES 2 (10MG) TABLETS Xarelto Tablet (Rivaroxaban) 20 Mg Tablet 20 Mg PO 1800 Assessment/Pt Instructions PCP 1 week Discharge Planning: <30 minutes discharge planning Discharge Instructions Discharge Diet: No Restrictions Discharge Physical Examination Vital Signs Vital Signs Date Time Temp Pulse Resp B/P (MAP) Pulse Ox O2 Delivery O2 Flow Rate FiO2 04/27/22 11:59 36.0 64 26 129/73 (91) 96 Room Air General Appearance: No Apparent Distress, WD/WN, Chronically ill Allergies: Coded Allergies: prednisone (Verified Allergy, Intermediate, RASH, 04/23/15) hydrocodone (Verified Allergy, Unknown, 04/23/15) venom-honey bee (Verified Allergy, Unknown, 04/23/15) Discharge Summary Date of Admission Apr 24, 2022 at 19:40 Date of Discharge Discharge Date: Apr 27, 2022 Admission Diagnosis Unstable angina Discharge Diagnosis COVID-positive Urinary retention management (1) Non-ST elevation myocardial infarction (NSTEMI), initial care episode (2) Paroxysmal atrial fibrillation (3) Primary hypertension (4) Mixed hyperlipidemia (5) Acute kidney injury superimposed on chronic kidney disease Clinical Quality Measures AMI/AHF: ASA po Prior to arrival: Yes ([phone]) ANGIE RONDON DO Apr 27, 2022 12:01
--- NOTE | 2022-04-27 12:16 | Progress Note ---
JUAN DAVID HAYS 04/27/22 1216: Progress Note Patient is a 52 year old male with past medical history of HTN, CAD, prior [place] with multiple stents, and CABG, presented to the emergency department for chest pain on 04-24-2022. He had symptoms 3 days constantly. He describes pain as a intense pressure diffusely over his left pectoralis with an area of exquisite pain about 3 cm in diameter in center of left pectoralis. He says pain was worse with exertion. It has been constant. He does not report any trauma to area. He reported taking 12 nitorglycerin tabs in 24 hours with minimal relief. Pain did not radiate, he denied any fever or vomiting. Has had some mild chills and diaphoresis. He has had symptoms like this before his other [place], but says this pain has been more constant and greater in intensity. In the ER he was found to have ST depression in V1-V6, no ST elevation. Troponin was not elevated. His creatinine was elevated at 2.3, reports he sees nephrology in [place]. He had an x-ray done on 04-24-2022 which showed no acute cardiopulmonary process. Patient was subsequently admitted 04-24-2022, for observation. He says he no longer smokes cigarettes, no longer drink alcohol. He does smoke marijuana occasionally, and denies any recent recreational drug use. Last night during his stay his nitroglycerin was discontinued due to hypotension. Patient is currently on xarelto and plavix due to his prior strokes. Patient was given morphine to help with his pain, which he reports only mildly alleviated his chest pain. The morning of 04-25-2022, he was alert and orientated, his only complaint was is his chest pain. He was ambulating well, and bowels had been moving appropriately. Cardiology was consulted and performed cardiac catheterization today 04-25-2022, which was successful. Results of cath: Patent REYES to LAD, known occluded vein graft severe in-stent restenosis in the right PDA with successful balloon angioplasty with excellent results. On 04-26-2022 patient was found to be alert and orientated, but had complaints of angina and urinary retention. His catheter incision site was healing well. He was given Tamsulosin. Patient was taken by PT to walk around the ICU and began having near syncopal episodes and had to return to bed and started to feel general malaise. He was swabbed for COVID and was found to be positive. He was also later started back on his Ranexa and Imdur. This morning 04-27-2022 patient was found to have improved angina with is medications back on board. His urinary retention was resolved. His only compliant was nausea and dizziness upon standing. He feels his strength is returning and able to return home. NORMA RONDON DO 04/28/22 0746: Supervisory-Addendum Brief Verification & Attestation Participated in pt care: history, MDM, physical Personally performed: exam, history, MDM, supervision of care Care discussed with: Medical Student Procedures: n/a Results interpretation: Verified all documentation Verification and Attestation of Medical Student E/M Service A medical student performed and documented this service in my presence. I reviewed and verified all information documented by the medical student and made modifications to such information, when appropriate. I personally performed the physical exam and medical decision making. Norma Rondon Apr 28, 2022,07:46 JUAN DAVID HAYS Apr 27, 2022 12:16 NORMA RONDON DO Apr 28, 2022 07:46
[2022-04-27] MEDS ORDERED: NON-FORMULARY MEDICATION 1 EA EA (Vortioxetine Hydrobromide (Trintellix) 20 MG) PO SCH (18:00)
== END 2022-04-27 12:01 | disposition home or self-care (01) ==
LOC: EDUNIT# 18:02 → ER 18:04 → ICU 19:40 → UNDOADMOB 19:40 → ICU 20:45 → UNDODISOB 04-27 12:01
PROVIDERS: ADMIT Internal Medicine; ATTEND Internal Medicine
DX: I25.110 Atherosclerotic heart disease of native coronary artery with unstable angina pectoris (principal); E78.5 Hyperlipidemia, unspecified; Z87.891 Personal history of nicotine dependence; I95.9 Hypotension, unspecified; J44.9 Chronic obstructive pulmonary disease, unspecified; I11.0 Hypertensive heart disease with heart failure; F41.9 Anxiety disorder, unspecified; E11.9 Type 2 diabetes mellitus without complications; Z79.84 Long term (current) use of oral hypoglycemic drugs; I65.23 Occlusion and stenosis of bilateral carotid arteries; I25.2 Old myocardial infarction; I50.9 Heart failure, unspecified; Z86.73 Personal history of transient ischemic attack (TIA), and cerebral infarction without residual deficits; Z79.899 Other long term (current) drug therapy; Z79.02 Long term (current) use of antithrombotics/antiplatelets
CPT/HCPCS: 71045 ×3; 80053 ×4; 80061; 81000; 82947 ×3; 83735 ×4; 83874; 84100 ×3; 84484 ×2; 85025 ×4; 85347; 85379; 85610; 85730; 87081; 87636; 92920; 93005 ×2; 93041; 93459; 94640 ×2; 96361 ×4; 96366; 96375 ×2; 96376 ×3; 97162; 99285; C1725; C1760; C1769; C1887; C1894; C8929; 36415; 93306; 96374; G0378

== ENCOUNTER 2022-06-25 23:06 | Observation (INO) | payer MEDICARE, MEDICAID ==
[~2022-06-25] VITALS: Ht 185 cm; Wt 107.5 kg
[~2022-06-25 23:06] MED LIST changes: +HYDR-3781 PO; +METF-865 PO; +ONDA8TAB13 PO; +RANO10005 PO
[2022-06-25 23:27] LABS: BASOPHILS % (AUTO) 0 % (0-10); EOSINOPHILS # (AUTO) 0.2 10^3/uL (0.0-0.3); EOSINOPHILS % (AUTO) 2 % (0-10); HEMATOCRIT 33 % (40-54); HEMOGLOBIN 11.2 g/dL (13.3-17.7); LYMPHOCYTES # (AUTO) 4.2 10^3/uL (1.0-4.0); LYMPHOCYTES % (AUTO) 47 % (12-44); MEAN CORPUSCULAR HEMOGLOBIN 28 pg (25-34); MEAN CORPUSCULAR HGB CONC 34 g/dL (32-36); MEAN CORPUSCULAR VOLUME 84 fL (80-99); MEAN PLATELET VOLUME 9.2 fL (9.0-12.2); MONOCYTES # (AUTO) 0.6 10^3/uL (0.0-1.0); MONOCYTES % (AUTO) 7 % (0-12); NEUTROPHILS % (AUTO) 44 % (42-75); PLATELET COUNT 268 10^3/uL (130-400)
[2022-06-25] MEDS ORDERED: ONDANSETRON 4 MG/2 ML (SDV) Z0FRAN IVP ONE (23:30)
[2022-06-25] MEDS ORDERED: morphine INJ 10 MG/ML 1ML (SYR OR VIAL) IVP ONE (23:30)
--- NOTE | 2022-06-25 23:39 | ED Chest Pain ---
General Chief Complaint: Chest Pain Stated Complaint: CP Nursing Triage Note: PT ARRIVAL TO ER [facility]IA [facility] WITH COMPLAINT OF CHEST PAIN SINCE THIS AM. PT STATES THAT IT WOKE HIM UP OUT OF A SLEEP AROUND 0700. PAIN DESCRIBED A STABBING ACHE. PAIN CURRENTLY AT A 5/10, BUT HAS BEEN UP TO A 9/10. PATIENT DENIES OTHER SYMPTOMS. HAS HAD TOTAL OF 5 NITRO'S TODAY, AND HAS HAD 3 ASA AT HOME AND THEN RECEIVED 4 BABY ASA DOUBLE NEEDLE STITCHER BY EMS. PATIENT HAS 20 GUAGE IV IN LEFT AC. Source: patient, old records History of Present Illness Date Seen by Provider: Jun 25, 2022 Time Seen by Provider: 23:13 Initial Comments PT ARRIVES VIA EMS FROM HOME C/O CHEST PAIN THAT WOKE HIM UP AT 0700 THIS MORNING PAIN HAS CONTINUED ALL DAY PAIN IS IN CENTER OF CHEST AND IS A CONSTANT ACHING WITH SHARP STABBING PAINS MOSTLY ON THE LEFT SIDE OF CHEST STATES THESE PAINS ARE A "JOLT" OR A "ZAP" AND ONLY LAST ONE SECOND RATES PAIN 9/10 AT WORST, 5/10 NOW. NOTHING WORSENS OR IMPROVES PAIN HAS MILD HEADACHE C/O NAUSEA NO SWEATS NO SHORTNESS OF BREATH NO SWELLING IN LEGS/FEET OR PAIN IN CALVES NO PALPITATIONS NO DIZZINESS OR SYNCOPE PT HAS HAD 324 MG ASPIRIN PRIOR TO ARRIVAL EMS GAVE NTG X 1 WITHOUT RELIEF PT HAS TAKEN 6 NTG AT HOME TODAY, WITHOUT RELIEF PT HAS AN EXTENSIVE CARDIAC HISTORY WITH 5 VESSEL CABG AT AGE 39, AND 6 OR 7 STENTS, PLUS ANGIOPLASTIES. LAST ANGIOPLASTY WAS 04/25/[address] PIMENTEL. PT IS MAINTAINED ON BOTH PLAVIX AND XARELTO, IN ADDITION TO MULTIPLE OTHER MEDICATIONS HE DENIES ANY RECENT CHANGES IN MEDICATIONS, AND NO MISSED DOSES OF MEDICATIONS. HE STARTED CARDIAC REHAB ON Saturday06/22/22, AND HAD HIS SECOND SESSION TODAY. ADDITIONALLY, HE HAS COPD, DIABETES, CHRONIC BACK AND KNEE PAIN HE QUIT SMOKING 1 1/2 PPD 20 YEARS AGO, USED THC AND COCAINE IN PAST, NONE FOR YEARS; , HISTORY OF ALCOHOL ABUSE/HEAVY USE-NOW OCCASIONALLY DRINKS. PCP: DR. XIE, [facility] [place] [employer] ACCESSORIES MECHANIC: DR. PIMENTEL Allergies and Home Medications Allergies Coded Allergies: prednisone (Verified Allergy, Intermediate, RASH, 04/23/15) hydrocodone (Verified Allergy, Unknown, 04/23/15) venom-honey bee (Verified Allergy, Unknown, 04/23/15) Patient Home Medication List Home Medication List Reviewed: Yes Acetaminophen (Tylenol Extra Strength) 500 Mg Tablet, 1,000 MG PO Q6H PRN for PAIN-MILD (1-4), (Reported) Entered as Reported by: AROLDO MEDINA on 09/02/20 1334 Albuterol Sulfate (Ventolin Hfa) 18 Gm Hfa.aer.ad, 2 PUFF INH Q6H PRN for SHORTNESS OF BREATH, (Reported) Entered as Reported by: MYESHA ELIZONDO on 12/03/18 1340 Aspirin (Aspirin EC) 81 Mg Tablet.dr, 81 MG PO 1200, (Reported) Entered as Reported by: BRADLEY DE LEON on 12/19/20 1325 Atorvastatin Calcium (Atorvastatin Calcium) 80 Mg Tablet, 80 MG PO HS, (Reported) Entered as Reported by: AROLDO MEDINA on 04/25/22 1416 Baclofen (Baclofen) 20 Mg Tablet, 20 MG PO TID PRN for MUSCLE SPASMS, (Reported) Entered as Reported by: BRADLEY DE LEON on 12/19/20 1325 Buspirone HCl (Buspirone HCl) 10 Mg Tablet, 20 MG PO TID, (Reported) Entered as Reported by: KIMBERLYN PATTERSON on 02/06/18 1228 Clopidogrel Bisulfate (Clopidogrel) 75 Mg Tablet, 75 MG PO DAILY, (Reported) Entered as Reported by: AROLDO MEDINA on 02/03/21 1619 Ezetimibe (Ezetimibe) 10 Mg Tablet, 10 MG PO 1200, (Reported) Entered as Reported by: AROLDO MEDINA on 02/03/21 1619 Fluticasone/Vilanterol (Breo Ellipta 200-25 Mcg INH) 200 Mcg-25 Mcg/Dose Blst.w.dev, 1 EACH IH DAILY PRN for SHORTNESS OF BREATH, (Reported) Entered as Reported by: AROLDO MEDINA on 07/06/20 0803 Gabapentin (Neurontin) 300 Mg Capsule, 300 MG PO TID PRN for PAIN-BREAKTHROUGH, (Reported) Entered as Reported by: AROLDO MEDINA on 07/06/20 0800 Hydroxyzine Pamoate (Hydroxyzine Pamoate) 25 Mg Capsule, 25 MG PO BID PRN for ANXIETY, (Reported) Entered as Reported by: AROLDO MEDINA on 04/25/22 1416 Icosapent Ethyl (Vascepa) 1 Gm Capsule, 2 GM PO BID, (Reported) Entered as Reported by: MYESHA ELIZONDO on 12/03/18 1340 Isosorbide Mononitrate (Isosorbide Mononitrate ER) 60 Mg Tab, 60 MG PO DAILY, (Reported) Entered as Reported by: AROLDO MEDINA on 04/25/22 1416 Meclizine HCl (Meclizine HCl) 25 Mg Tablet, 25 MG PO TID PRN for VERTIGO/DIZZINESS, (Reported) Entered as Reported by: MYESHA ELIZONDO on 12/03/18 1340 Metformin HCl (Metformin HCl ER) 500 Mg Tab.er.24h, 1,000 MG PO BID WITH MEALS Prescribed by: JAMEEL PIMENTEL on 04/26/22 0640 Metoprolol Succinate (Metoprolol Succinate) 50 Mg Tab.er.24h, 50 MG PO BID, (Reported) Entered as Reported by: AROLDO MEDINA on 09/02/20 1334 Montelukast Sodium (Montelukast Sodium) 10 Mg Tablet, 10 MG PO 1200, (Reported) Entered as Reported by: AROLDO MEDINA on 02/03/21 1619 Nitroglycerin (Nitroglycerin) 0.4 Mg Tab.subl, 0.4 MG SL UD PRN for CHEST PAIN, (Reported) Entered as Reported by: AROLDO MEDINA on 07/06/20 0800 Ondansetron (Ondansetron Odt) 8 Mg Tab.rapdis, 8 MG PO Q8H PRN for NAUSEA/VOMITING-1ST LINE, (Reported) Entered as Reported by: AROLDO MEDINA on 04/25/22 1416 Pantoprazole Sodium (Pantoprazole Sodium) 40 Mg Tablet.dr, 40 MG PO HS, (Reported) Entered as Reported by: AROLDO MEDINA on 02/03/21 1619 Ranolazine (Ranolazine ER) 1,000 Mg Tab.er.12h, 1,000 MG PO Q12H, (Reported) Entered as Reported by: AROLDO MEDINA on 04/25/22 1416 Rivaroxaban (Xarelto Tablet) 20 Mg Tablet, 20 MG PO 1800, (Reported) Entered as Reported by: PAT PHELAN on 02/26/16 1316 Trazodone HCl (Trazodone HCl) 100 Mg Tablet, 100 MG PO HS PRN for SLEEP, (Reported) Entered as Reported by: MYESHA ELIZONDO on 12/03/18 1340 Vortioxetine Hydrobromide (Trintellix) 20 Mg Tablet, 20 MG PO 1800, (Reported) Entered as Reported by: BRADLEY DE LEON on 12/19/20 1325 Review of Systems Review of Systems Constitutional: no symptoms reported EENTM: No Symptoms Reported Respiratory: No Symptoms Reported Cardiovascular: See HPI Gastrointestinal: See HPI Genitourinary: No Symptoms Reported Musculoskeletal: no symptoms reported Skin: no symptoms reported Psychiatric/Neurological: See HPI Endocrine: No Symptoms Reported Hematologic/Lymphatic: No Symptoms Reported Past Pgrlphk-Dxswhe-Uqhutg Hx Patient Social History Tobacco Use?: Yes Tobacco type used: Cigarettes Smoking Status: Former Smoker Use of E-Cig and/or Vaping dev: No Substance use?: Yes Substance type: Marijuana Additional substance use comme: THC, COCAINE IN PAST Alcohol Use?: Yes ( A TEEN) Alcohol Frequency: Once in a while Pt feels they are or have been: No Immunizations Up To Date Tetanus Booster (TDap): Unknown PED Vaccines UTD: No Influenza Vaccine Up-to-Date: No; Not Current Seasonal Allergies Seasonal Allergies: Yes Past Medical History Surgeries: Yes (CABG X5 VESSEL; 6-7 STENTS, MULTIPLE ANGIOPLASTIES) CABG, Coronary Stent Respiratory: Yes Sleep Apnea, COPD, Emphysema Currently Using CPAP: No (HAS BEEN PRESCRIBED CPAP, BUT DOES NOT USE IT) Currently Using BIPAP: No Cardiac: Yes (5 VESSEL CABG AGE 39;MULTIPLE CATHS- 6-7 STENTS, MULTIPLE ANGIOPLASTIES;CHF) Atrial Fibrillation, Coronary Artery Disease, Heart Attack, High Cholesterol, Hypertension Neurological: Yes (CVA WITH SOME RESIDUAL PROBLEMS WITH BALANCE AND SHORT TERM MEMORY) Stroke, TIA Reproductive Disorders: No Sexually Transmitted Disease: No HIV/AIDS: No Genitourinary: No Gastrointestinal: Yes Gastroesophageal Reflux Musculoskeletal: Yes (SCIATICA; CHRONIC BACK PAIN AND KNEE PAIN ) Arthritis, Chronic Back Pain, Spasms Endocrine: Yes (OBESITY) Diabetes, Non-Insulin dep HEENT: Yes Eye Injury, Double Vision Loss of Vision: Right Hearing Impairment: Denies Cancer: No Psychosocial: Yes (OCD; INTENTIONAL OVERDOSE/SUICIDE ATTEMPT 06/2017) Sleep Difficulties, Anxiety, Suicide Attempts, Depression Integumentary: No Blood Disorders: No Adverse Reaction/Blood Tranf: No Family Medical History Brain cancer 19 FATHER Congestive heart failure 19 MOTHER Coronary artery disease 19 FATHER Diabetes mellitus 19 MOTHER Heart attack 19 FATHER 19 MOTHER Hypertension 19 FATHER 19 MOTHER Lung cancer 19 FATHER Heart Disease, Cancer, Diabetes SOCIAL HISTORY: -ETOH--HEAVY USE BY HISTORY, NOW OCCASIONAL USE -DRUGS--COCAINE AND THC IN PAST, DENIES IV DRUG USE -SMOKED 1 1/2 PPD, QUIT 20 YEARS AGO PAST SURGICAL HISTORY: -ULNAR DECOMPRESSION -CYST REMOVAL -EGD/COLONOSCOPY/POLYPECTOMY -CABG 5 VESSEL AT AGE 39 -MULTIPLE CARDIAC CATHS, WITH 6-7 STENTS AND MULTIPLE ANGIOPLASTIES -CARDIAC CATH 07/06/20- BY DR. PIMENTEL CONCLUSION: 1. Severe in-stent restenosis at the overlapping stents of the right PDA, successful intervention using noncompliant balloon with high pressure 2.5 x 20 mm with multiple inflation with resolution of the restenosis completely 2. Patent stent in the proximal circumflex artery followed by moderate stenosis, it will be monitored. Known occluded obtuse marginal branches 3. Occluded LAD at the midportion, patent REYES to the LAD with small LAD tapering down after the anastomosis with diffuse disease, not amendable to intervention due to the size of the artery 4. Known to have occluded 2 vein grafts 4. Mildly elevated left ventricular end-diastolic pressure CARDIAC CATH 04/25/[address] PIMENTEL: ANATOMY: Left Main is free of obstructive disease Left Anterior Descending is occluded distally with patent REYES to LAD Left Circumflex is small artery with severe mid circumflex stenosis, the obtuse marginal branches are occluded and vein graft to the OM is occluded Right Coronary Artery is dominant artery with with severe in-stent restenosis in the right PDA successful balloon angioplasty with excellent results LV Gram was not done, pressure was measured CONCLUSION: 1. Patent REYES to LAD, known occluded vein grafts 2. Severe in-stent restenosis in the right PDA with successful balloon angioplasty with excellent results DISCUSSION AND RECOMMENDATION: Continue to maximize medical Physical Exam Vital Signs Vital Signs - First Documented 06/25/22 23:12 Temp 36.7 Pulse 77 Resp 16 B/P (MAP) 140/86 (104) Pulse Ox 99 O2 Delivery Room Air Capillary Refill : Less Than 3 Seconds Height, Weight, BMI Height: 6'1.00" Weight: 277lbs. 0.0oz. 125.066782eq; 29.99 BMI Method:Stated General Appearance: No Apparent Distress, WD/WN, Other (DOES NOT APPEAR TO BE IN ANY DISCOMFORT OR DISTRESS) HEENT: PERRL/EOMI Neck: Normal Inspection; No Carotid Bruit, No JVD Respiratory: Chest Non Tender, Normal Breath Sounds, No Accessory Muscle Use, No Respiratory Distress Cardiovascular: Regular Rate, Rhythm, No Edema, No JVD, No Murmur, Normal Peripheral Pulses Gastrointestinal: Non Tender, Soft Extremity: Normal Capillary Refill, Normal Inspection, Normal Range of Motion, Non Tender, No Calf Tenderness, No Pedal Edema Neurologic/Psychiatric: Alert, Oriented x3, No Motor/Sensory Deficits, Normal Mood/Affect, home performance consultant II-XII Norm as Tested Skin: Normal Color, Warm/Dry, Tattoos/Piercings (TATTOOS) Procedures/Interventions Suture Size: 4-0 Progress/Results/Core Measures Results/Orders Lab Results Laboratory Tests Test 06/25/22 23:15 Range/Units White Blood Count 9.0 4.3-11.0 10^3/uL Red Blood Count 3.94 L 4.30-5.52 10^6/uL Hemoglobin 11.2 L 13.3-17.7 g/dL Hematocrit 33 L 40-54 % Mean Corpuscular Volume 84 80-99 fL Mean Corpuscular Hemoglobin 28 25-34 pg Mean Corpuscular Hemoglobin Concent 34 32-36 g/dL Red Cell Distribution Width 13.4 10.0-14.5 % Platelet Count 268 130-400 10^3/uL Mean Platelet Volume 9.2 9.0-12.2 fL Immature Granulocyte % (Auto) 0 % Neutrophils (%) (Auto) 44 42-75 % Lymphocytes (%) (Auto) 47 H 12-44 % Monocytes (%) (Auto) 7 0-12 % Eosinophils (%) (Auto) 2 0-10 % Basophils (%) (Auto) 0 0-10 % Neutrophils # (Auto) 4.0 1.8-7.8 10^3/uL Lymphocytes # (Auto) 4.2 H 1.0-4.0 10^3/uL Monocytes # (Auto) 0.6 0.0-1.0 10^3/uL Eosinophils # (Auto) 0.2 0.0-0.3 10^3/uL Basophils # (Auto) 0.0 0.0-0.1 10^3/uL Immature Granulocyte # (Auto) 0.0 0.0-0.1 10^3/uL Prothrombin Time 25.0 H 12.2-14.7 SEC INR Comment 2.2 H 0.8-1.4 Activated Partial Thromboplast Time 44 H 24-35 SEC D-Dimer 1.02 H 0.00-0.49 UG/ML Sodium Level 140 135-145 MMOL/L Potassium Level 4.2 3.6-5.0 MMOL/L Chloride Level 105 98-107 MMOL/L Carbon Dioxide Level 23 21-32 MMOL/L Anion Gap 12 5-14 MMOL/L Blood Urea Nitrogen 11 7-18 MG/DL Creatinine 1.45 H 0.60-1.30 MG/DL Estimat Glomerular Filtration Rate 59 BUN/Creatinine Ratio 8 Glucose Level 84 70-105 MG/DL Calcium Level 9.6 8.5-10.1 MG/DL Corrected Calcium 9.3 8.5-10.1 MG/DL Magnesium Level 1.7 1.6-2.4 MG/DL Total Bilirubin 0.5 0.1-1.0 MG/DL Aspartate Amino Transf (AST/SGOT) 11 5-34 U/L Alanine Aminotransferase (ALT/SGPT) 12 0-55 U/L Alkaline Phosphatase 57 40-136 U/L Total Creatine Kinase 45 30-200 U/L Creatine Kinase MB 0.6 <6.6 NG/ML Myoglobin 41.6 10.0-92.0 NG/ML Troponin I < 0.028 <0.028 NG/ML B-Type Natriuretic Peptide 153.0 H <100.0 PG/ML Total Protein 7.7 6.4-8.2 GM/DL Albumin 4.4 3.2-4.5 GM/DL Amylase Level 64 25-125 U/L Lipase 56 8-78 U/L My Orders Orders - KATHY JOHNSON DO Ekg Tracing (06/25/22 23:10) Ekg Tracing (06/25/22 23:10) Cbc With Automated Diff (06/25/22 23:15) Magnesium (06/25/22 23:15) Chest 1 View, Ap/Pa Only (06/25/22 23:15) Comprehensive Metabolic Panel (06/25/22 23:15) Myoglobin Serum (06/25/22 23:15) Protime With Inr (06/25/22 23:15) Partial Thromboplastin Time (06/25/22 23:15) O2 (06/25/22 23:15) Monitor-Rhythm Ecg Trace Only (06/25/22 23:15) Ed Iv/Invasive Line Start (06/25/22 23:15) Creatine Kinase (06/25/22 23:15) Creatine Kinase Mb (06/25/22 23:15) Lipase (06/25/22 23:15) Amylase (06/25/22 23:15) Bnp Sherman (06/25/22:15) Fibrin Degradation Products (06/25/22:15) Troponin I Sherman (06/25/22 23:15) Morphine Injection (Morphine Injection (06/25/22 23:30) Ondansetron Injection (Zofran Injectio (06/25/22 23:30) Medications Given in ED Current Medications Medications Dose Ordered Sig/Colette Route Start Time Stop Time Status Last Admin Dose Admin Morphine Sulfate 4 mg ONCE ONCE IVP 06/25/22 23:30 06/25/22 23:31 DC 06/25/22 23:33 4 MG Ondansetron HCl 4 mg ONCE ONCE IVP 06/25/22 23:30 06/25/22 23:31 DC 06/25/22 23:34 4 MG Vital Signs/I&O 06/25/22 23:12 Temp 36.7 Pulse 77 Resp 16 B/P (MAP) 140/86 (104) Pulse Ox 99 O2 Delivery Room Air Blood Pressure Mean: 104 Progress Progress Note : Progress Note GIVEN: -ZOFRAN FOR NAUSEA -MORPHINE FOR PAIN --PAIN DOWN TO A 3/10, BUT STILL HAVING "JOLTS AND ZAPS" OF PAIN, LASTING A SECOND--THESE CORRESPOND WITH PVC'S ON MONITOR. REPEAT MORPHINE ORDERED NO DETERIORATION IN PT'S CONDITION DURING ER STAY Initial ECG Impression Date: Jun 25, 2022 Initial ECG Impression Time: 23:19 Initial ECG Rate: 73 Initial ECG Rhythm: Normal Sinus Initial ECG Impression: Nonspecific Changes Initial ECG Comparisson: Unchanged Diagnostic Imaging Comments CXR--PENDING RADIOLOGIST REVIEW NO ACUTE PROCESS, MILD CARDIOMEGALY ? Reviewed: Reviewed by Me CP/AMI: Aspirin, B-Arvin (PT IS ON METOPROLOL DAILY), ECG, Nitrates (PRIOR TO ARRIVAL) Departure Communication (Admissions) 0005--SPOKE WITH DR. PIMENTEL, [employer] MECHANIC, ADVISES TO ADMIT TO MEDICINE AND HE WILL SEE PT IN CONSULT. [id number]--SPOKE WITH DR. HOWELL, STAVE BLOCK SPLITTER FOR [facility] [place], ACCEPTS PT FOR ADMIT. Impression Primary Impression: Chest pain Additional Impressions: CAD WITH CABG, STENTS AND ANGIOPLASTIES NIDDM HTN (hypertension) Hyperlipidemia PVC's (premature ventricular contractions) Disposition: ADMITTED INPATIENT Condition: Improved Admissions Decision to Admit Reason: Admit from ER (General) Decision to Admit/Date: Jun 26, 2022 Time/Decision to Admit Time: 00:05 Departure-Patient Inst. Referrals: JUNIOR XIE MD (PCP/Family) Primary Care Physician KATHY JOHNSON DO Jun 25, 2022 23:39
[2022-06-25 23:42] LABS: ALBUMIN 4.4 GM/DL (3.2-4.5)
[2022-06-25 23:43] LABS: INR 2.2 (0.8-1.4); POTASSIUM 4.2 MMOL/L (3.6-5.0)
[2022-06-25 23:44] LABS: CALCIUM 9.6 MG/DL (8.5-10.1)
[2022-06-25 23:45] LABS: TOTAL PROTEIN 7.7 GM/DL (6.4-8.2)
[2022-06-25 23:47] LABS: BILIRUBIN,TOTAL 0.5 MG/DL (0.1-1.0)
[2022-06-25 23:49] LABS: CREATININE SERUM 1.45 MG/DL (0.60-1.30)
[2022-06-25 23:51] LABS: MAGNESIUM 1.7 MG/DL (1.6-2.4)
[2022-06-26] LABS: CREATINE KINASE MB 0.6 NG/ML (<6.6)
[2022-06-26] MEDS ORDERED: morphine INJ 10 MG/ML 1ML (SYR OR VIAL) IVP ONE (00:30)
[2022-06-26 01:28] VITALS: BP 131/83
[2022-06-26] MEDS ORDERED: ONDANSETRON 4 MG/2 ML (SDV) Z0FRAN IVP PRN (01:45)
[2022-06-26] MEDS: morphine INJ 4 MG/ML 1 ML (VIAL/SYRINGE) IV PRN ×3 (03:32→09:41)
[2022-06-26 04:00] VITALS: BP 121/76
[2022-06-26 05:08] LABS: BASOPHILS % (AUTO) 0 % (0-10); EOSINOPHILS # (AUTO) 0.1 10^3/uL (0.0-0.3); EOSINOPHILS % (AUTO) 2 % (0-10); HEMATOCRIT 32 % (40-54); HEMOGLOBIN 10.6 g/dL (13.3-17.7); LYMPHOCYTES # (AUTO) 4.3 10^3/uL (1.0-4.0); LYMPHOCYTES % (AUTO) 48 % (12-44); MEAN CORPUSCULAR HEMOGLOBIN 28 pg (25-34); MEAN CORPUSCULAR HGB CONC 33 g/dL (32-36); MEAN CORPUSCULAR VOLUME 85 fL (80-99); MEAN PLATELET VOLUME 9.7 fL (9.0-12.2); MONOCYTES # (AUTO) 0.6 10^3/uL (0.0-1.0); MONOCYTES % (AUTO) 7 % (0-12); NEUTROPHILS # (AUTO) 3.9 10^3/uL (1.8-7.8); NEUTROPHILS % (AUTO) 43 % (42-75); PLATELET COUNT 237 10^3/uL (130-400)
[2022-06-26 05:24] LABS: BUN/CREATININE RATIO 7; CALCIUM 9.2 MG/DL (8.5-10.1); CARBON DIOXIDE 23 MMOL/L (21-32); CHLORIDE 105 MMOL/L (98-107); CHOLESTEROL 176 MG/DL (< 200); CREATININE SERUM 1.56 MG/DL (0.60-1.30); GFR ESTIMATED 54; GLUCOSE 84 MG/DL (70-105); HDL CHOLESTEROL 30 MG/DL (40-60); POTASSIUM 4.4 MMOL/L (3.6-5.0); SODIUM 141 MMOL/L (135-145); TRIGLYCERIDES 144 MG/DL (<150); VLDL CHOLESTEROL 29 MG/DL (5-40)
[2022-06-26] MEDS ORDERED: CATHETER FLUSH 10 ML SYR IVP SCH (06:00)
[2022-06-26] MEDS ORDERED: FLU QUADRIvalent (6 months+) 60 mcg/0.5 ml 2022-23 (Fluzone) IM ONE (06:45)
[2022-06-26] MEDS: inSUlin ASPART (NovoLOG) 1 UNIT/0.01 ML (CHARGE PER UNIT) SC SCH ×2 (07:25→11:13)
--- NOTE | 2022-06-26 07:42 | Consultation-Cardiology ---
HPI-Cardiology Cardiology Consultation Date of Consultation 06/26/22 Date of Admission Time Seen by Provider: 07:36 Indication: Chest pain HPI 52 years old gentleman with extensive history of coronary artery disease, multiple admission for recurrent chest pain, had a stent in the distal right PDA that continue to have significant restenosis. Underwent noncompliant balloon angioplasty in April 2022 with excellent results, patient has felt good for couple of months and now returns with chest pain. EKG did not show any acute changes, cardiac enzymes were negative. On my evaluation this morning he is feeling better. No active chest pain was reported. Home Medications & Allergies Allergies: Coded Allergies: prednisone (Verified Allergy, Intermediate, RASH, 04/23/15) hydrocodone (Verified Allergy, Unknown, 04/23/15) venom-honey bee (Verified Allergy, Unknown, 04/23/15) Home Medication List Reviewed: Yes UGM-Vybcxp-Zqiawi Hx Patient Social History Marital Status: Employed/Student: employed Drug of Choice: HX MARIJUANA Smoking Status: Former Smoker Former smoker/When Quit: Apr 07, 1999 Type Used: Cigarettes 2nd Hand Smoke Exposure: No Recent Hopitalizations: No Have you traveled recently?: No Alcohol Use?: No Substance type: Marijuana Immunizations Up To Date Tetanus Booster (TDap): Unknown Date of Pneumonia Vaccine: December 03, 2016 Date of Influenza Vaccine: May 19, 2020 Past Medical History Discussed below Family Medical History Significant Family History: Heart Disease, Cancer, Diabetes Family History: Brain cancer 19 FATHER Congestive heart failure 19 MOTHER Coronary artery disease 19 FATHER Diabetes mellitus 19 MOTHER Heart attack 19 FATHER 19 MOTHER Hypertension 19 FATHER 19 MOTHER Lung cancer 19 FATHER Review of Systems-General Review of Systems Constitutional: no symptoms reported EENTM: see HPI, no symptoms reported Respiratory: no symptoms reported, see HPI Cardiovascular: see HPI, chest pain; No edema, No Hx of Intervention; palpitations; No syncope, No vascular heart diseas, No other Gastrointestinal: no symptoms reported, see HPI Genitourinary: no symptoms reported, see HPI Musculoskeletal: no symptoms reported, see HPI Skin: no symptoms reported, see HPI Psychiatric/Neurological: See HPI Reviewed Test Results Reviewed Test Results Lab Laboratory Tests Test 06/25/22 23:15 06/26/22 02:00 06/26/22 04:30 Range/Units White Blood Count 9.0 9.0 4.3-11.0 10^3/uL Red Blood Count 3.94 L 3.81 L 4.30-5.52 10^6/uL Hemoglobin 11.2 L 10.6 L 13.3-17.7 g/dL Hematocrit 33 L 32 L 40-54 % Mean Corpuscular Volume 84 85 80-99 fL Mean Corpuscular Hemoglobin 28 28 25-34 pg Mean Corpuscular Hemoglobin Concent 34 33 32-36 g/dL Red Cell Distribution Width 13.4 13.6 10.0-14.5 % Platelet Count 268 237 130-400 10^3/uL Mean Platelet Volume 9.2 9.7 9.0-12.2 fL Immature Granulocyte % (Auto) 0 0 % Neutrophils (%) (Auto) 44 43 42-75 % Lymphocytes (%) (Auto) 47 H 48 H 12-44 % Monocytes (%) (Auto) 7 7 0-12 % Eosinophils (%) (Auto) 2 2 0-10 % Basophils (%) (Auto) 0 0 0-10 % Neutrophils # (Auto) 4.0 3.9 1.8-7.8 10^3/uL Lymphocytes # (Auto) 4.2 H 4.3 H 1.0-4.0 10^3/uL Monocytes # (Auto) 0.6 0.6 0.0-1.0 10^3/uL Eosinophils # (Auto) 0.2 0.1 0.0-0.3 10^3/uL Basophils # (Auto) 0.0 0.0 0.0-0.1 10^3/uL Immature Granulocyte # (Auto) 0.0 0.0 0.0-0.1 10^3/uL Prothrombin Time 25.0 H 12.2-14.7 SEC INR Comment 2.2 H 0.8-1.4 Activated Partial Thromboplast Time 44 H 24-35 SEC D-Dimer 1.02 H 0.00-0.49 UG/ML Sodium Level 140 141 135-145 MMOL/L Potassium Level 4.2 4.4 3.6-5.0 MMOL/L Chloride Level 105 105 98-107 MMOL/L Carbon Dioxide Level 23 23 21-32 MMOL/L Anion Gap 12 13 5-14 MMOL/L Blood Urea Nitrogen 11 11 7-18 MG/DL Creatinine 1.45 H 1.56 H 0.60-1.30 MG/DL Estimat Glomerular Filtration Rate 59 54 BUN/Creatinine Ratio 8 7 Glucose Level 84 84 70-105 MG/DL Calcium Level 9.6 9.2 8.5-10.1 MG/DL Corrected Calcium 9.3 8.5-10.1 MG/DL Magnesium Level 1.7 1.6-2.4 MG/DL Total Bilirubin 0.5 0.1-1.0 MG/DL Aspartate Amino Transf (AST/SGOT) 11 5-34 U/L Alanine Aminotransferase (ALT/SGPT) 12 0-55 U/L Alkaline Phosphatase 57 40-136 U/L Total Creatine Kinase 45 30-200 U/L Creatine Kinase MB 0.6 <6.6 NG/ML Myoglobin 41.6 10.0-92.0 NG/ML Troponin I < 0.028 < 0.028 < 0.028 <0.028 NG/ML B-Type Natriuretic Peptide 153.0 H <100.0 PG/ML Total Protein 7.7 6.4-8.2 GM/DL Albumin 4.4 3.2-4.5 GM/DL Amylase Level 64 25-125 U/L Lipase 56 8-78 U/L Triglycerides Level 144 <150 MG/DL Cholesterol Level 176 < 200 MG/DL LDL Cholesterol Direct 116 1-129 MG/DL VLDL Cholesterol 29 5-40 MG/DL HDL Cholesterol 30 L 40-60 MG/DL Physical Exam Physical Exam Vital Signs Vital Signs - First Documented 06/25/22 23:12 Temp 36.7 Pulse 77 Resp 16 B/P (MAP) 140/86 (104) Pulse Ox 99 O2 Delivery Room Air Capillary Refill : Less Than 3 Seconds Height, Weight, BMI Height: 6'1.00" Weight: 277lbs. 0.0oz. 125.304285nv; 31.40 BMI Method:Stated General Appearance: No Apparent Distress, WD/WN, Other (DOES NOT APPEAR TO BE IN ANY DISCOMFORT OR DISTRESS) Eyes: Bilateral Eye Normal Inspection, Bilateral Eye PERRL, Bilateral Eye EOMI HEENT: PERRL/EOMI Neck: Normal Inspection; No Carotid Bruit, No JVD Respiratory: Chest Non Tender, Normal Breath Sounds, No Accessory Muscle Use, No Respiratory Distress Cardiovascular: Regular Rate, Rhythm, No Edema, No JVD, No Murmur, Normal Peripheral Pulses Gastrointestinal: Non Tender, Soft Back: Normal Inspection, No CVA Tenderness, No Vertebral Tenderness Extremity: Normal Capillary Refill, Normal Inspection, Normal Range of Motion, Non Tender, No Calf Tenderness, No Pedal Edema Neurologic/Psychiatric: Alert, Oriented x3, No Motor/Sensory Deficits, Normal Mood/Affect, basket operator II-XII Norm as Tested Skin: Normal Color, Warm/Dry, Tattoos/Piercings (TATTOOS) Lymphatic: No Adenopathy A/P-Cardiology Admission Diagnosis Unstable angina Coronary artery disease Paroxysmal atrial fibrillation Hypertension Assessment/Plan Chest pain, chronic stable angina. Had episode of chest pain last night, recurrent. Cardiac enzymes and EKG are normal. Discussed the management plan, possible referral as an outpatient for a tertiary care center for evaluation. Coronary artery disease, history of CABG 5 done in 2008, history of 4 stents, last 2 stents were placed in 2012. Cardiac catheterization was done on April 26, 2015 with successful balloon angioplasty for 90 percent in-stent restenosis in the right posterior descending artery. Distal right PDA had 80 percent stenosis, very small artery not amendable to intervention. Patent stent in the proximal circumflex artery. Occluded stent in the obtuse marginal branch. Occluded LAD a with known patent REYES to LAD. Repeat cardiac catheterization was done in February [address] Joseph as occlusion of the LAD, ostial occlusion of the proximal OM, 80 percent stenosis at the distal small right PDA, left to left and [id number] collateral filling the OM system, 2 occluded vein graft presumably to the OM and right coronary artery, patent REYES to LAD, patient has significant disease in the distal LAD. Cardiac catheterization with Dr. Evangelista July 2016 with successful percutaneous revascularization of severe PDA branch disease with 2.5 x 32 mm Promus drug-eluting stent, and a 2.25 x 12 mm Promus drug-eluting stent to the PDA. Cardiac catheterization was done after having an abnormal stress test on February 06, [address] Shanks which showed patent REYES to LAD, known occluded vein graft, severe kake coronary artery disease, normal FFR to the circumflex artery, severely reduced FFR to the right PDA was successful balloon angioplasty using 2.530 mm balloon with good results. Cardiac catheterization was repeated on December 03, 2018 showing severe instent restenosis in the right posterior descending branch had significant stenosis, underwent Emerge balloon angioplasty using 2.5 x 20 mm expanded to 2.7 mm and her high pressure with good results, moderate disease in the midright coronary artery treated medically, patent stent in the circumflex artery with occluded ob tuse marginal branch and the vein graft to the obtuse marginal branch, occluded LAD and patent REYES to LAD, there are 2 other vein grafts one of them to the obtuse marginal branch and probably the other one to the right coronary artery were occluded. Cardiac catheterization done July 06, 2020 revealing severe in-stent resteosis in the right PDA with successful balloon angioplasty using 2.5x20 mm balloon with excellent results. Patent REYES to LAD, patent stent in rajan prox LAD with borderline lesion proximal to the stent 50-60% stenosis. mod disease in the circumflex artery, known occluded 2 vein grafts. This is cardiac catheterization done in August 2020 showing severe in-stent restenosis of the overlapping stent of the right PDA with noncompliant balloon angioplasty using 2.5 x 20 mm with multiple inflation and resolution of the restenosis completely, patent stent in the proximal circumflex artery followed by a moderate stenosis which will be monitored, occluded LAD at the midportion with patent REYES to LAD with small LAD tapering down at the anastomosis point and beyond into small vessel with diffuse disease, known occluded 2 vein grafts. Cardiac catheterization was carried out in December 2020 showing severe recurrent in- stent restenosis in the right PDA, balloon angioplasty using 2.5 x 20 mm trek balloon expanded under 17 gurjit to 2.75 with excellent results, occluded obtuse marginal branch and vein graft to the obtuse marginal branch, patent REYES to LAD with small vessel disease. Mild diffuse left ventricular hypokinesia. Stress test was done in December 2020 showing diaphragmatic attenuation with reversible ischemia involving the whole inferior wall and inferolateral wall and anterolateral wall with transient ischemic dilatation 1.26, stress score 19, SDS 6, ejection fraction 31%, underwent cardiac catheterization after stress test Cardiac catheterization done on April 25, 2022, occluded distal LAD with patent REYES to LAD, known occluded vein grafts. Severe stenosis in the mid circumflex artery about 1 mm in diameter. Severe in-stent restenosis in the r ight PDA with successful balloon angioplasty using noncompliant 2.5 x 20 mm balloon with excellent results. Continue on Xarelto and Plavix Echocardiogram done in April 2022 with normal LV size and ejection fraction 55 to 65%, PA pressure 25 to 30 mmHg. No significant abnormality was noted History of CVA, maintained on Xarelto History of PAF/aflutter, currently in sinus rhythm, maintained on Xarelto. Congestive heart failure, last echo in January 2020 showed improvement of EF of 55- 65 percent. Continue to monitor Mild to moderate aortic valve stenosis, valve area 1.4 cm by echo in January 2020. Repeat echo in 2021 did not show any significant aortic stenosis Hypertension, well controlled, reporting occasional episodes of low blood pressure. Restart home medication monitor blood pressure Hyperlipidemia, continue to monitor lipids as an outpatient Recurrent palpitation, short-lived, associated with some chest pain, better after increasing beta blockers. Continue to monitor Mild bilateral carotid stenosis, continue to monitor Diabetes mellitus, followed and managed by primary care physician History of COPD, currently stable. Continue to monitor History of sleep apnea, patient reports noncompliance with CPAP and no longer has it, not using C Pap machine. Morbid obesity, BMI 31. Educated on weight loss Depression, difficult to control, was hospitalized in July, feeling better at this time Family history of heart disease Clinical Quality Measures AMI/AHF: ASA po Prior to arrival: Yes JAMEEL PIMENTEL MD Jun 26, 2022 07:42
[2022-06-26 07:53] VITALS: BP 137/78
--- NOTE | 2022-06-26 08:32 | Diagnostic Imaging Report ---
EXAMINATION: Chest 1 view HISTORY: Chest pain. COMPARISON: 04/26/2022. FINDINGS: The lung volumes are normal. No focal consolidation is seen. No large pleural effusion or pneumothorax is seen. Stable cardiomegaly with post-CABG changes. No acute osseous abnormality is seen. IMPRESSION: 1. No acute pleuroparenchymal process. Dictated by: Dictated on workstation # [id number]
[2022-06-26] MEDS ORDERED: ASPIRIN E.C. 81 MG (ECOTRIN) TAB PO SCH (09:00)
[2022-06-26 11:11] VITALS: BP 154/90
--- NOTE | 2022-06-26 12:17 | Short Stay Summary ---
HPI History of Present Illness: 52 yo M with extensive cardiac history that presented with worsening chest pain. States that the pain woke him up in the middle of the night. It was not as strong as when he had his first OH but it was intense. He is still having some pain but it is improved. Also having chest tightness. Denies any palpitations or shortness of breath. Source: patient Exam Limitations: no limitations Date seen by provider: Jun 26, 2022 Time Seen by Provider: 08:45 Attending Physician Marta Lauren MD PCP Admitting Physician: Jacquelin Howell MD Attending Physician: Jacquelin Howell MD Consult Date of Admission Jun 26, 2022 at 00:05 Home Medications Home Medications Reviewed patient Home Medication Reconciliation performed by pharmacy medication reconciliations aviation maintenance technician and/or nursing. Patients Allergies have been reviewed. Allergies Coded Allergies: prednisone (Verified Allergy, Intermediate, RASH, 04/23/15) hydrocodone (Verified Allergy, Unknown, 04/23/15) venom-honey bee (Verified Allergy, Unknown, 04/23/15) EPD-Apeiqq-Mexzbz Hx Patient Social History Marrital Status: Employed/Student: employed Drug of Choice: HX MARIJUANA Smoking Status: Former Smoker Former smoker/When Quit: Apr 07, 1999 2nd Hand Smoke Exposure: No Recent Hopitalizations: No Alcohol Use?: No Substance type: Marijuana Tobacco type used: Cigarettes Have you traveled recently?: No Immunizations Up To Date Tetanus Booster (TDap): Unknown Influenza Vaccine Up-to-Date: No; Not Current Past Medical History Coronary artery disease DM NARGIS Obesity Family Medical History Significant Family History: Heart Disease, Cancer, Diabetes Other Significan Family Hx: SOCIAL HISTORY: -ETOH--HEAVY USE BY HISTORY, NOW OCCASIONAL USE -DRUGS--COCAINE AND THC IN PAST, DENIES IV DRUG USE -SMOKED 1 1/2 PPD, QUIT 20 YEARS AGO PAST SURGICAL HISTORY: -ULNAR DECOMPRESSION -CYST REMOVAL -EGD/COLONOSCOPY/POLYPECTOMY -CABG 5 VESSEL AT AGE 39 -MULTIPLE CARDIAC CATHS, WITH 6-7 STENTS AND MULTIPLE ANGIOPLASTIES -CARDIAC CATH 07/06/20- BY DR. FITZGERALD CONCLUSION: 1. Severe in-stent restenosis at the overlapping stents of the right PDA, successful intervention using noncompliant balloon with high pressure 2.5 x 20 mm with multiple inflation with resolution of the restenosis completely 2. Patent stent in the proximal circumflex artery followed by moderate stenosis, it will be monitored. Known occluded obtuse marginal branches 3. Occluded LAD at the midportion, patent REYES to the LAD with small LAD tapering down after the anastomosis with diffuse disease, not amendable to intervention due to the size of the artery 4. Known to have occluded 2 vein grafts 4. Mildly elevated left ventricular end-diastolic pressure CARDIAC CATH 04/25/[address] FITZGERALD: ANATOMY: Left Main is free of obstructive disease Left Anterior Descending is occluded distally with patent REYES to LAD Left Circumflex is small artery with severe mid circumflex stenosis, the obtuse marginal branches are occluded and vein graft to the OM is occluded Right Coronary Artery is dominant artery with with severe in-stent restenosis in the right PDA successful balloon angioplasty with excellent results LV Gram was not done, pressure was measured CONCLUSION: 1. Patent REYES to LAD, known occluded vein grafts 2. Severe in-stent restenosis in the right PDA with successful balloon angioplasty with excellent results DISCUSSION AND RECOMMENDATION: Continue to maximize medical Family History: Brain cancer 19 FATHER Congestive heart failure 19 MOTHER Coronary artery disease 19 FATHER Diabetes mellitus 19 MOTHER Heart attack 19 FATHER 19 MOTHER Hypertension 19 FATHER 19 MOTHER Lung cancer 19 FATHER Review of Systems (CHC) Constitutional: no symptoms reported; No chills, No malaise, No weakness EENTM: no symptoms reported; No mouth pain, No nose congestion, No nose pain, No throat pain Respiratory: no symptoms reported; No cough, No dyspnea on exertion, No short of breath Cardiovascular: chest pain; No palpitations, No syncope Gastrointestinal: no symptoms reported; No abdominal pain, No constipation, No diarrhea, No nausea, No vomiting Genitourinary: no symptoms reported; No dysuria, No frequency, No hematuria Musculoskeletal: no symptoms reported; No back pain, No joint pain, No muscle pain Skin: no symptoms reported Psychiatric/Neurological: No Symptoms Reported Reviewed Test Results Reviewed Test Results Lab Laboratory Tests Test 06/25/22 23:15 06/26/22 02:00 06/26/22 04:30 06/26/22 11:13 Range/Units White Blood Count 9.0 9.0 4.3-11.0 10^3/uL Red Blood Count 3.94 L 3.81 L 4.30-5.52 10^6/uL Hemoglobin 11.2 L 10.6 L 13.3-17.7 g/dL Hematocrit 33 L 32 L 40-54 % Mean Corpuscular Volume 84 85 80-99 fL Mean Corpuscular Hemoglobin 28 28 25-34 pg Mean Corpuscular Hemoglobin Concent 34 33 32-36 g/dL Red Cell Distribution Width 13.4 13.6 10.0-14.5 % Platelet Count 268 237 130-400 10^3/uL Mean Platelet Volume 9.2 9.7 9.0-12.2 fL Immature Granulocyte % (Auto) 0 0 % Neutrophils (%) (Auto) 44 43 42-75 % Lymphocytes (%) (Auto) 47 H 48 H 12-44 % Monocytes (%) (Auto) 7 7 0-12 % Eosinophils (%) (Auto) 2 2 0-10 % Basophils (%) (Auto) 0 0 0-10 % Neutrophils # (Auto) 4.0 3.9 1.8-7.8 10^3/uL Lymphocytes # (Auto) 4.2 H 4.3 H 1.0-4.0 10^3/uL Monocytes # (Auto) 0.6 0.6 0.0-1.0 10^3/uL Eosinophils # (Auto) 0.2 0.1 0.0-0.3 10^3/uL Basophils # (Auto) 0.0 0.0 0.0-0.1 10^3/uL Immature Granulocyte # (Auto) 0.0 0.0 0.0-0.1 10^3/uL Prothrombin Time 25.0 H 12.2-14.7 SEC INR Comment 2.2 H 0.8-1.4 Activated Partial Thromboplast Time 44 H 24-35 SEC D-Dimer 1.02 H 0.00-0.49 UG/ML Sodium Level 140 141 135-145 MMOL/L Potassium Level 4.2 4.4 3.6-5.0 MMOL/L Chloride Level 105 105 98-107 MMOL/L Carbon Dioxide Level 23 23 21-32 MMOL/L Anion Gap 12 13 5-14 MMOL/L Blood Urea Nitrogen 11 11 7-18 MG/DL Creatinine 1.45 H 1.56 H 0.60-1.30 MG/DL Estimat Glomerular Filtration Rate 59 54 BUN/Creatinine Ratio 8 7 Glucose Level 84 84 70-105 MG/DL Calcium Level 9.6 9.2 8.5-10.1 MG/DL Corrected Calcium 9.3 8.5-10.1 MG/DL Magnesium Level 1.7 1.6-2.4 MG/DL Total Bilirubin 0.5 0.1-1.0 MG/DL Aspartate Amino Transf (AST/SGOT) 11 5-34 U/L Alanine Aminotransferase (ALT/SGPT) 12 0-55 U/L Alkaline Phosphatase 57 40-136 U/L Total Creatine Kinase 45 30-200 U/L Creatine Kinase MB 0.6 <6.6 NG/ML Myoglobin 41.6 10.0-92.0 NG/ML Troponin I < 0.028 < 0.028 < 0.028 <0.028 NG/ML B-Type Natriuretic Peptide 153.0 H <100.0 PG/ML Total Protein 7.7 6.4-8.2 GM/DL Albumin 4.4 3.2-4.5 GM/DL Amylase Level 64 25-125 U/L Lipase 56 8-78 U/L Triglycerides Level 144 <150 MG/DL Cholesterol Level 176 < 200 MG/DL LDL Cholesterol Direct 116 1-129 MG/DL VLDL Cholesterol 29 5-40 MG/DL HDL Cholesterol 30 L 40-60 MG/DL Glucometer 93 70-110 MG/DL Physical Exam-(CHC) Physical Exam Vital Signs VS - Last 72 Hours, by Label 06/25/22 06/26/22 06/26/22 06/26/22 23:12 00:38 01:00 01:28 Temp 36.7 36.0 Pulse 77 77 70 75 Resp 16 18 13 B/P (MAP) 140/86 (104) 116/72 131/83 (99) Pulse Ox 99 96 97 O2 Delivery Room Air Room Air Room Air 06/26/22 06/26/22 06/26/22 06/26/22 01:42 04:00 07:48 07:53 Temp 35.8 35.8 Pulse 74 68 66 Resp 10 14 B/P (MAP) 121/76 (91) 137/78 (97) Pulse Ox 96 94 98 O2 Delivery Room Air Room Air Room Air 06/26/22 06/26/22 08:16 11:11 Temp 35.3 Pulse 73 Resp 13 B/P (MAP) 154/90 (111) Pulse Ox 94 O2 Delivery Room Air Room Air Capillary Refill : Less Than 3 Seconds General Appearance: WD/WN, no apparent distress HEENT: PERRL/EOMI Neck: non-tender, full range of motion, supple Respiratory: chest non-tender, lungs clear, normal breath sounds, no respiratory distress, no accessory muscle use Cardiovascular: normal peripheral pulses, regular rate, rhythm, no edema, no murmur Gastrointestinal: normal bowel sounds, non tender, soft Back: no CVA tenderness, no vertebral tenderness Extremities: normal range of motion, non-tender, normal inspection, no pedal edema, no calf tenderness, normal capillary refill Neurologic/Psychiatric: superintendent police II-XII nml as tested, no motor/sensory deficits, alert, normal mood/affect, oriented x 3 Skin: normal color, warm/dry Lymphatic: no adenopathy Short Stay Diagnosis Discharge Diagnosis-Short Stay Admission Diagnosis See problem list Final Discharge Diagnosis See problem list Conclusion Plan See problem list Clinical Quality Measures AMI/AHF: ASA po Prior to arrival: Yes Assessment/Plan Assessment/Plan Admission Status: Observation (1) Atypical chest pain Status: Acute Assessment & Plan: - Normal CE, Cardiology consulted, appreciate recommendations, Plan for patient to see Dr Fitzgerald and he has discussed patient with manufacturing engineering technician in [place] who will consult patient (2) Angina at rest Status: Chronic (3) Mixed hyperlipidemia Status: Chronic Assessment & Plan: - Continue Statin (4) Coronary artery disease Status: Chronic (5) Primary hypertension Status: Chronic Assessment & Plan: - Continue home meds (6) CVA (cerebral infarction) Status: Resolved JACQUELIN HOWELL MD Jun 26, 2022 12:17
--- NOTE | 2022-06-26 12:19 | Discharge Summary ---
Discharge [facility] Reconcile Patient Problems Problems Reviewed?: Yes Discharge Medications New Medications: Oxycodone HCl (Oxycodone HCl) 5 Mg Tablet 5 MG PO Q8H PRN for PAIN-SEVERE (8-10), #14 TAB Continued Medications: Acetaminophen (Tylenol Extra Strength) 500 Mg Tablet 1000 MG PO Q6H PRN for PAIN-MILD (1-4), TAB Albuterol Sulfate (Ventolin Hfa) 18 Gm Hfa.aer.ad 2 PUFF INH Q6H PRN for SHORTNESS OF BREATH, INHALER Atorvastatin Calcium (Atorvastatin Calcium) 80 Mg Tablet 80 MG PO HS, TAB Baclofen (Baclofen) 20 Mg Tablet 20 MG PO TID PRN for MUSCLE SPASMS, TAB Buspirone HCl (Buspirone HCl) 10 Mg Tablet 20 MG PO TID, TAB TAKES 2 (10MG) TABLETS Clopidogrel Bisulfate (Clopidogrel) 75 Mg Tablet 75 MG PO DAILY, TAB Ezetimibe (Ezetimibe) 10 Mg Tablet 10 MG PO 1200, TAB Fluticasone/Vilanterol (Breo Ellipta 200-25 Mcg INH) 200 Mcg-25 Mcg/Dose Blst.w.dev 1 EACH IH DAILY PRN for SHORTNESS OF BREATH, EA Gabapentin (Neurontin) 300 Mg Capsule 300 MG PO TID PRN for PAIN-BREAKTHROUGH, CAP Hydroxyzine Pamoate (Hydroxyzine Pamoate) 25 Mg Capsule 25 MG PO BID PRN for ANXIETY, CAP Icosapent Ethyl (Vascepa) 1 Gm Capsule 2 GM PO BID, CAP TAKES 2 (1GM) CAPSULES Isosorbide Mononitrate (Isosorbide Mononitrate ER) 60 Mg Tab 60 MG PO DAILY, TAB Meclizine HCl (Meclizine HCl) 25 Mg Tablet 25 MG PO TID PRN for VERTIGO/DIZZINESS, TAB Metformin HCl (Metformin HCl ER) 500 Mg Tab.er.24h 1000 MG PO BID WITH MEALS, #1 TAB Hold Metformin for 48 hours Metoprolol Succinate (Metoprolol Succinate) 50 Mg Tab.er.24h 50 MG PO BID, TAB Montelukast Sodium (Montelukast Sodium) 10 Mg Tablet 10 MG PO 1200, TAB Nitroglycerin (Nitroglycerin) 0.4 Mg Tab.subl 0.4 MG SL UD PRN for CHEST PAIN, TAB Ondansetron (Ondansetron Odt) 8 Mg Tab.rapdis 8 MG PO Q8H PRN for NAUSEA/VOMITING-1ST LINE, TAB Pantoprazole Sodium (Pantoprazole Sodium) 40 Mg Tablet.dr 40 MG PO HS, TAB Ranolazine (Ranolazine ER) 1,000 Mg Tab.er.12h 1000 MG PO Q12H, TAB Rivaroxaban (Xarelto Tablet) 20 Mg Tablet 20 MG PO 1800, TAB Trazodone HCl (Trazodone HCl) 100 Mg Tablet 100 MG PO HS PRN for SLEEP, TAB Vortioxetine Hydrobromide (Trintellix) 20 Mg Tablet 20 MG PO 1800, TAB Discontinued Medications: Aspirin (Aspirin EC) 81 Mg Tablet. 81 MG PO 1200, TAB Patient Instructions Goal/Follow Up Appt: Narendra with Cardiology 1 week, has appt with Lorraine after that, Dr Fitzgerald will set it up Activity & Diet Discharge Diet: Cardiac Diet JACQUELIN HOWELL MD Jun 26, 2022 12:19
[2022-06-26] MEDS ORDERED: OXYC5TAB PO (12:21)
== END 2022-06-26 13:30 | disposition home or self-care (01) ==
LOC: EDUNIT# 23:06 → ER 23:07 → CSD 06-26 00:05 → INTOOBSV 06-26 00:05
PROVIDERS: ADMIT Family Medicine; ATTEND Family Medicine
DX: R07.89 Other chest pain (principal); I25.118 Atherosclerotic heart disease of native coronary artery with other forms of angina pectoris; E78.2 Mixed hyperlipidemia; I11.0 Hypertensive heart disease with heart failure; I50.9 Heart failure, unspecified; I35.0 Nonrheumatic aortic (valve) stenosis; I65.23 Occlusion and stenosis of bilateral carotid arteries; E11.9 Type 2 diabetes mellitus without complications; F32.A Depression, unspecified; J44.9 Chronic obstructive pulmonary disease, unspecified; G47.33 Obstructive sleep apnea (adult) (pediatric); E66.01 Morbid (severe) obesity due to excess calories; Z86.73 Personal history of transient ischemic attack (TIA), and cerebral infarction without residual deficits; Z68.31 Body mass index [BMI] 31.0-31.9, adult; Z87.891 Personal history of nicotine dependence; Z79.899 Other long term (current) drug therapy
CPT/HCPCS: 36415; 71045; 80048; 80053; 80061; 82150; 82550; 82553; 82947; 83690; 83735; 83874; 83880; 84484; 85025; 85379; 85610; 85730; 90471; 90686; 93005; 93041; 96376

== ENCOUNTER → 2022-07-04 | Outpatient (RCR) | payer MEDICARE, MEDICAID ==
[~2022-07-04] MED LIST changes: +CLOP-31 PO; -CLOP75TA69 PO; +OXYC5TAB PO
== END | disposition home or self-care (01) ==
LOC: CR 06-22 10:47
PROVIDERS: ATTEND Internal Medicine Cardiovascular Disease
DX: Z29.8 Encounter for other specified prophylactic measures (principal); Z95.5 Presence of coronary angioplasty implant and graft
CPT/HCPCS: 93798

== ENCOUNTER 2022-07-20 11:51 | Outpatient (RCR) | payer MEDICARE, MEDICAID | END 2022-08-04 | disposition home or self-care (01) | LOC: CR 11:51 | PROVIDERS: ATTEND Internal Medicine Cardiovascular Disease | DX: Z29.8 Encounter for other specified prophylactic measures (principal); Z95.5 Presence of coronary angioplasty implant and graft | CPT/HCPCS: 93798 ==

== ENCOUNTER 2022-08-31 13:53 | Outpatient (RCR) | payer MEDICARE, MEDICAID | END 2022-09-04 | disposition home or self-care (01) | LOC: CR 13:53 | PROVIDERS: ATTEND Internal Medicine Cardiovascular Disease | DX: Z29.8 Encounter for other specified prophylactic measures (principal); Z95.5 Presence of coronary angioplasty implant and graft | CPT/HCPCS: 93798 ==

== ENCOUNTER 2022-10-01 10:37 | Outpatient (RCR) | payer MEDICARE, MEDICAID | END 2022-10-02 | disposition home or self-care (01) | LOC: CR 10:37 | PROVIDERS: ATTEND Internal Medicine Cardiovascular Disease | DX: Z29.8 Encounter for other specified prophylactic measures (principal); Z95.5 Presence of coronary angioplasty implant and graft | CPT/HCPCS: 93798 ==

== ENCOUNTER 2022-10-26 10:36 | Outpatient (RCR) | payer MEDICARE, MEDICAID | END 2022-11-02 | disposition home or self-care (01) | LOC: CR 10:36 | PROVIDERS: ATTEND Family Medicine | DX: Z29.8 Encounter for other specified prophylactic measures (principal); Z98.61 Coronary angioplasty status | CPT/HCPCS: 93798 ==

== ENCOUNTER 2022-11-05 08:04 | Outpatient (RCR) | payer MEDICARE, MEDICAID | END 2022-12-02 | LOC: CR 08:04 | PROVIDERS: ATTEND Family Medicine | DX: Z29.8 Encounter for other specified prophylactic measures (principal); Z98.61 Coronary angioplasty status ==

== ENCOUNTER → 2022-11-19 | Outpatient (CLI) | payer MEDICARE, MEDICAID ==
--- NOTE | 2022-11-19 12:11 | Diagnostic Imaging Report ---
CLINICAL INDICATION: Patient is having chronic back pain. Outside x-ray shows degenerative disk disease. EXAM: MRI of the cervical spine performed without IV contrast. Sequences include sagittal T2, sagittal T1, sagittal T2 fat-sat, and axial T2. COMPARISON: None. FINDINGS: There is note of multilevel bilateral neural foramen narrowing and central canal narrowing which may have a superimposed congenital narrowing. There is no acute cervical spine fracture or dislocation. There are no significant abnormal Modic degenerative signal changes. Limited visualization of the posterior fossa is unremarkable. Cervical spinal cord has normal cord caliber with no abnormal IV contrast enhancement. There is no significant paraspinal soft tissue abnormality. C1-C2: There are small degenerative spurs involving the atlanto-odontoid interval. There is no significant central canal narrowing. C2-C3: There is mild bilateral facet arthropathy. There is no significant central canal or neural foramen narrowing. C3-C4: There is mild bilateral facet arthropathy. There is at least moderate bilateral neural foramen narrowing. There is [id number] central canal narrowing. There is at least moderate bilateral neural foramen narrowing. C4-C5: There is [id number] central canal narrowing. There is at least moderate bilateral neural foramen narrowing. There is mild bilateral facet arthropathy. C5-C6: There is a diffuse disk bulge with bgyt-ma-xetbyclr loss of disk space height and superimposed small anterior disk herniation with spurs. There is moderate central canal stenosis. There is severe left neural foramen narrowing and [id number]-[id number]-modymuqw right neural foramen narrowing. There is moderate left facet arthropathy and right mild facet arthropathy. C6-C7: There is moderate bilateral neural foramen narrowing. There is mild bilateral facet arthropathy. There are small anterior disk spurs. There is mild central canal stenosis. C7-T1: There is no significant central canal or neural foramen narrowing. IMPRESSION: There is multilevel cervical spine degenerative disk disease, as described above. Dictated by: Dictated on workstation # [id number]
== END ==
LOC: RAD 09:30
PROVIDERS: ATTEND Nurse Practitioner Family
DX: M50.322 Other cervical disc degeneration at C5-C6 level (principal); M47.812 Spondylosis without myelopathy or radiculopathy, cervical region; M48.02 Spinal stenosis, cervical region
CPT/HCPCS: 72141

== ENCOUNTER → 2022-11-20 | Outpatient (CLI) | payer MEDICARE, MEDICAID | LOC: CARD 07:54 | PROVIDERS: ATTEND Internal Medicine Cardiovascular Disease | DX: I11.9 Hypertensive heart disease without heart failure (principal); I35.0 Nonrheumatic aortic (valve) stenosis; M25.512 Pain in left shoulder; M25.511 Pain in right shoulder | CPT/HCPCS: 93306 ==

== ENCOUNTER → 2022-11-20 | Outpatient (CLI) | payer MEDICARE, MEDICAID ==
--- NOTE | 2022-11-20 10:51 | Diagnostic Imaging Report ---
INDICATION: Acute shoulder pain. EXAMINATION: Right shoulder MRI without contrast on 11/20/2022. FINDINGS: There is a partial-thickness articular sided tear of the infraspinatus and supraspinatus tendons. No full-thickness tear is appreciated. Diffuse tendinosis is noted throughout the subscapularis tendon with a more focal articular sided partial tear present. The long head of the biceps tendon is intact and lies in the bicipital groove. The biceps tendon anchor is intact. The labrum is grossly unremarkable on this noncontrast examination. Muscle volume is preserved. The visualized axilla is unremarkable. IMPRESSION: 1. Partial articular sided tears of the supraspinatus, infraspinatus, and subscapularis tendons. 2. The labrum is grossly intact on this noncontrast examination with the visualized biceps tendon unremarkable. Dictated by: Dictated on workstation # [id number]
== END ==
LOC: RAD 07:57
PROVIDERS: ATTEND Nurse Practitioner Family
DX: M75.111 Incomplete rotator cuff tear or rupture of right shoulder, not specified as traumatic (principal); M25.512 Pain in left shoulder
CPT/HCPCS: 73221